=== PATIENT | female | born 1950 | race Caucasian/White ===

== ENCOUNTER 2018-01-04 16:19 | Outpatient (REF) | payer MEDICARE, BC, SELFPAY | END 2018-01-04 16:39 | LOC: LBN 16:19 | PROVIDERS: PCP Internal Medicine; Visit Provider Nurse Practitioner Family | DX: N39.0 Urinary tract infection, site not specified (principal) | CPT/HCPCS: 87077; 87086; 87186 ==

== ENCOUNTER 2018-01-29 15:56 | Outpatient (REF) | payer MEDICARE, BC, SELFPAY | END 2018-01-29 16:16 | LOC: NCHCN 15:56 | PROVIDERS: PCP Internal Medicine; Visit Provider Internal Medicine | DX: R82.90 Unspecified abnormal findings in urine (principal); N39.0 Urinary tract infection, site not specified | CPT/HCPCS: 87077; 87086 ==

== ENCOUNTER 2018-02-08 11:18 | Outpatient (REF) | payer MEDICARE, BC, SELFPAY ==
[2018-02-08 22:43] LABS: Bilirubin Negative (Negative); Blood Negative (Negative); Clarity Clear; Glucose Negative (Negative); Ketones Negative (Negative); Leukocyte Esterase Small (Negative); Nitrite Negative (Negative); Specific Gravity 1.015 (1.005-1.025); Urobilinogen 0.2 EU/dL (Up TO 0.2)
[2018-02-08 22:55] LABS: Bacteria Rare HPF (Negative); Crystals Negative HPF (Negative); Epithelial Cells Rare HPF (Negative); Mucus Negative (Negative); RBC Negative (0-2); WBC 20-50 HPF (0-5)
[2018-02-08 22:56] LABS: C & S Indicated? C&S Done As Ordered; Casts Negative LPF (Negative)
== END 2018-02-08 11:38 ==
LOC: NCHCN 11:18
PROVIDERS: PCP Internal Medicine; Visit Provider Internal Medicine
DX: R30.0 Dysuria (principal)
CPT/HCPCS: 87077; 81003; 81015; 87086; 87186

== ENCOUNTER 2018-03-08 20:29 | Outpatient (REF) | payer MEDICARE, BC, SELFPAY ==
[2018-03-08 20:47] LABS: Bilirubin Negative (Negative); Blood Negative (Negative); Clarity Clear; Glucose Negative (Negative); Ketones Negative (Negative); Leukocyte Esterase Small (Negative); Nitrite Negative (Negative); Urobilinogen 0.2 EU/dL (Up TO 0.2); pH 6.5 (5-8)
[2018-03-08 22:04] LABS: Epithelial Cells Few HPF (Negative); RBC Negative (0-2)
[2018-03-08 22:05] LABS: Bacteria Few HPF (Negative); C & S Indicated? Yes; Casts Negative LPF (Negative); Crystals Negative HPF (Negative); Mucus Negative (Negative); Other Cells Rare Renal (Negative)
== END 2018-03-08 20:49 ==
LOC: NCHCN 20:29
PROVIDERS: PCP Internal Medicine; Visit Provider Internal Medicine
DX: N30.90 Cystitis, unspecified without hematuria (principal)
CPT/HCPCS: 87077; 81003; 81015; 87086; 87186

== ENCOUNTER 2018-09-23 14:03 | Outpatient (REF) | payer MEDICARE, BC, SELFPAY | END 2018-09-23 14:23 | LOC: NCHCN 14:03 | PROVIDERS: PCP Internal Medicine; Visit Provider Internal Medicine | DX: N30.90 Cystitis, unspecified without hematuria (principal) | CPT/HCPCS: 87077; 87086; 87186 ==

== ENCOUNTER 2018-10-11 16:17 | Outpatient (REF) | payer MEDICARE, BC, SELFPAY | END 2018-10-11 16:37 | LOC: NCHCN 16:17 | PROVIDERS: PCP Internal Medicine; Visit Provider Family Medicine | DX: N30.90 Cystitis, unspecified without hematuria (principal) | CPT/HCPCS: 87086 ==

== ENCOUNTER 2018-12-11 10:53 | Outpatient (REF) | payer MEDICARE, BC, SELFPAY | END 2018-12-11 11:13 | LOC: NCHCO 10:53 | PROVIDERS: PCP Internal Medicine; Visit Provider Internal Medicine | DX: R35.0 Frequency of micturition (principal) | CPT/HCPCS: 87077; 87086; 87186 ==

== ENCOUNTER 2019-07-18 13:30 | Outpatient (REF) | payer MEDICARE, BC, SELFPAY ==
[2019-07-18 21:19] LABS: Anion Gap 7.3 mmol/L (3-11); BUN 22 mg/dL (7-18); CO2 31.7 mmol/L (21.0-32.0); CREATININE 1.25 mg/dL (0.55-1.02); Calcium 9.6 mg/dL (8.5-10.1); Chloride 100 mmol/L (98-107); Estimated GFR 42.49 (mL/min/1.73m2); Glucose 86 mg/dL (74-106); Potassium 4.3 mmol/L (3.5-5.1); Sodium 139 mmol/L (136-145); TSH 1.57 uIU/mL (0.36-3.74)
[2019-07-18 21:45] LABS: T4 9.5 ug/mL (4.7-13.3)
[2019-07-20 17:14] LABS: T3, Total 122 ng/dL (97-169)
== END 2019-07-18 13:50 ==
LOC: NCHCN 13:30
PROVIDERS: PCP Internal Medicine; Visit Provider Internal Medicine
DX: R73.03 Prediabetes (principal); I10 Essential (primary) hypertension; E03.9 Hypothyroidism, unspecified
CPT/HCPCS: 80048; 83036; 84436; 84443; 84480

== ENCOUNTER 2019-07-28 08:11 | Outpatient (REF) | payer MEDICARE, BC, SELFPAY ==
[2019-07-28 21:22] LABS: BUN 22 mg/dL (7-18); CREATININE 1.39 mg/dL (0.55-1.02); Calcium 9.3 mg/dL (8.5-10.1); Calculated LDL 132 mg/dL (<100); Chloride 105 mmol/L (98-107); Cholesterol 217 mg/dL (<200); Estimated GFR 37.59 (mL/min/1.73m2); Glucose 114 mg/dL (74-106); HDL Cholesterol 53 mg/dL (40-60); Potassium 4.9 mmol/L (3.5-5.1); Sodium 145 mmol/L (136-145); Triglyceride 163 mg/dL (<150)
== END 2019-07-28 08:31 ==
LOC: NCHCN 08:11
PROVIDERS: PCP Internal Medicine; Visit Provider Internal Medicine
DX: I10 Essential (primary) hypertension (principal); F01.50 Vascular dementia, unspecified severity, without behavioral disturbance, psychotic disturbance, mood disturbance, and anxiety
CPT/HCPCS: 80048; 80061

== ENCOUNTER 2019-10-07 08:57 | Outpatient (REF) | payer MEDICARE, BC, SELFPAY ==
[2019-10-07 21:25] LABS: Abs Immature Grans 0.01 10^3/uL (0.0-0.06); Absolute Basophil Count 0.05 10^3/uL (0.0-0.2); Absolute Eosinophil Count 0.14 10^3/uL (0.0-0.7); Absolute Lymphocyte Count 1.31 10^3/uL (1.2-3.4); Absolute Monocyte Count 0.58 10^3/uL (0.1-0.8); Basophils % 1.1; Eosinophils % 3.1; HCT 39.9 % (36.0-46.0); HGB 13.6 g/dL (11.2-15.7); Immature Grans % 0.2; Lymphocytes % 29.2; MCH 32.5 pg (27.0-33.0); MCHC 34.1 % (32.0-36.0); MCV 95.5 fL (80-95); MPV 10.6 fL (8.0-11.0); Monocytes % 12.9; Neutrophils % 53.5; Platelet Count 240 10^3/uL (130-400); RBC 4.18 10^6/uL (3.93-5.22); RDW 12.6 % (11.7-14.6); RDW-SD 43.8 fL; WBC 4.49 10^3/uL (4.4-10.8)
[2019-10-07 22:03] LABS: Ferritin 71 ng/mL (8-252); Vitamin B12 683 pg/mL (193-986)
[2019-10-07 22:24] LABS: Iron 69 ug/dL (50-170); Total Iron Binding Capacity 300 ug/dL (250-450); Transferrin Sat 23 % (15-50)
[2019-10-07 22:52] LABS: Folate > 20.0 ng/mL (8.6-20.0)
[2019-10-08 16:53] LABS: Thyroperoxidase Antibody <28 U/mL (<=60)
[2019-10-09 04:55] LABS: Vitamin D 25 Total 68.3 ng/ml (30-100)
[2019-10-09 10:02] LABS: Insulin 17.6 uIU/mL (<29.0)
[2019-10-10 09:37] LABS: Lipoprotein (a) 9 mg/dL (<=30)
== END 2019-10-07 09:17 ==
LOC: LBN 08:57
PROVIDERS: PCP Internal Medicine; Visit Provider Naturopath
DX: R73.03 Prediabetes (principal); R53.83 Other fatigue; E55.9 Vitamin D deficiency, unspecified; E78.5 Hyperlipidemia, unspecified
CPT/HCPCS: 82306; 83695; 82607; 82728; 82746; 83036; 83525; 83540; 83550; 85025; 86376

== ENCOUNTER 2019-11-14 17:19 | Outpatient (REF) | payer MEDICARE, BC, SELFPAY | END 2019-11-14 17:39 | LOC: NCHCN 17:19 | PROVIDERS: PCP Internal Medicine; Visit Provider Family Medicine | DX: R32 Unspecified urinary incontinence (principal) | CPT/HCPCS: 87077; 87086; 87186 ==

== ENCOUNTER 2019-11-20 17:46 | Outpatient (REF) | payer MEDICARE, BC, SELFPAY ==
[2019-11-24 03:58] LABS: Patient Race White; SARS-CoV-2 RNA Undetected (Undetected); SARS-CoV-2 Specimen Source Nasopharynx
== END 2019-11-20 18:06 ==
LOC: NCHCN 17:46
PROVIDERS: PCP Internal Medicine; Visit Provider Nurse Practitioner Family
DX: Z11.59 Encounter for screening for other viral diseases (principal)
CPT/HCPCS: U0003

== ENCOUNTER 2020-01-06 19:31 | Outpatient (REF) | payer MEDICARE, BC, SELFPAY ==
[2020-01-06 21:11] LABS: Hemoglobin A1C 5.6 % (<5.7)
[2020-01-06 21:27] LABS: Anion Gap 7.7 mmol/L (3-11); BUN 25 mg/dL (7-18); CO2 29.3 mmol/L (21.0-32.0); CREATININE 1.06 mg/dL (0.55-1.02); Calcium 9.2 mg/dL (8.5-10.1); Calculated LDL 41 mg/dL (<100); Chloride 103 mmol/L (98-107); Cholesterol 118 mg/dL (<200); Estimated GFR 51.25 (mL/min/1.73m2); Glucose 102 mg/dL (74-106); HDL Cholesterol 47 mg/dL (40-60); Potassium 4.9 mmol/L (3.5-5.1); Sodium 140 mmol/L (136-145); Triglyceride 154 mg/dL (<150)
== END 2020-01-06 19:51 ==
LOC: NCHCN 19:31
PROVIDERS: PCP Internal Medicine; Visit Provider Internal Medicine
DX: E78.5 Hyperlipidemia, unspecified (principal); N18.9 Chronic kidney disease, unspecified; R73.03 Prediabetes
CPT/HCPCS: 80048; 80061; 83036

== ENCOUNTER 2020-07-27 15:00 | Outpatient (REF) | payer MEDICARE, BC, SELFPAY ==
[2020-07-29 15:57] LABS: COVID-19 RT-PCR UVMMC Result Negative (Negative)
== END 2020-07-27 15:01 | disposition home or self-care (01) ==
LOC: NCHCN 15:00
PROVIDERS: PCP Nurse Practitioner Family; Visit Provider Nurse Practitioner Family
DX: Z20.822 Contact with and (suspected) exposure to COVID-19 (principal); R19.7 Diarrhea, unspecified
CPT/HCPCS: U0003

== ENCOUNTER 2020-07-28 15:15 | Outpatient (REF) | payer MEDICARE, BC, SELFPAY ==
[2020-07-29 21:45] LABS: Campylobacter PCR Negative (Negative); Salmonella PCR Negative (Negative); Shiga Toxin PCR Negative (Negative); Shigella/Enteroinvasive Ecoli Negative (Negative)
[2020-08-03 14:56] LABS: Helicobacter pylori Ag, Feces Negative (Negative)
== END 2020-07-28 15:16 | disposition home or self-care (01) ==
LOC: NCHCN 15:15
PROVIDERS: PCP Nurse Practitioner Family; Visit Provider Nurse Practitioner Family
DX: R19.7 Diarrhea, unspecified (principal)
CPT/HCPCS: 87329; 87338; 87493; 87505; 83630; 87177

== ENCOUNTER 2020-09-19 15:28 | Emergency (ER) | payer MEDICARE, BC, SELFPAY ==
[2020-09-19 15:35] VITALS: BP 158/71; PULSE 70; RESP 16; TEMP 36.6; O2SAT 95
--- NOTE | 2020-09-19 16:24 | ED.GENADUL_ITS ---
Discharge Plan Disposition Patient Disposition: HOME Condition: Stable Discharge Details Clinical Impression: Elbow fracture, left Primary Care Provider: Zahra Raman ED Provider: Elaine Vilchis Home Meds and New Rx's Prescriptions: New oxycodone 5 mg tablet 5 mg PO Q6H PRNQty: 6 RF: 0 No Action levothyroxine [Synthroid] 25 mcg Tablet 100 mcg PO DAILY RF: 0 hydromorphone [Dilaudid] 2 mg Tablet 2 mg PO .[id number] PRNRF: 0 lisinopril 10 mg Tablet 20 mg PO DAILY RF: 0 bupropion HCl [Wellbutrin XL] 300 mg Tablet Extended Release 24 Hr 150 mg PO DAILY RF: 0 Xarelto 2.5 mg Tablet 10 mg PO .QHS RF: 0 multivitamin Tablet 1 tab PO DAILY RF: 0 atorvastatin 20 mg Tablet 20 mg PO .QHS RF: 0 omeprazole 20 mg Tablet,Delayed Release (Dr/Ec) 20 mg PO DAILY RF: 0 Discharge Instructions Additional Instructions: keep dry ice, use sling during day tylenol 650 mg every 4 hours oxycodone 1-2 every 4-6 hours return with fever, worsening pain, numbness/tingling, or with any new or worsening symptoms Discharge Data Discharge Date/Time-TO BE ENTERED AT DEPARTURE: 09/19/20 16:57 Medical Decision Making After the dorsal portion of the splint was removed, patient states that her pain is resolved and she is feeling significant improvement I did reapply her splint and she is feeling marked improvement I gave her several additional doses of oxycodone, risk discussed She has follow-up at [facility] for surgery in 2 days reportedly She is still taking her Dilaudid which she was prescribed but almost has completed this prescription I discussed risk of addiction No clinical evidence of DVT Has sling at home Return precautions discussed patient expressed understanding There is no evidence of compartment syndrome clinically I think at this time as patient is symptomatically improved, she has a nonfocal exam for compartment syndrome, and she has appropriate analgesia, she will only take this medication if she is pain uncontrolled with Tylenol we can . Medical Records Medical records reviewed: Yes I reviewed the patient's medical records. HPI General Mode of arrival: ambulatory . Date/Time Provider Initiated Documentation: 09/19/20 16:23 . Limitations to Documentation: no limitations . Information obtained by: patient . HPI Narrative: This 70-year-old female with past medical history of DVT, diabetes, hyperlipidemia presents with reports of left elbow pain and arm pain. Patient is status post fracture of her elbow which was open on September 08. She has had a splint placed at [facility] a week ago and she states that it feels too tight. She states she presents here secondary to discomfort related to her splint. She is taking her pain medication as prescribed. She denies any sensation change to the affected area. She denies fever or chills. Antibiotic as prescribed reportedly. She is scheduled for surgery in 2 days reportedly. She denies any chest pain or shortness of breath. She denies any additional complaints at this time. Related Data Home Medications Medication Instructions Recorded Confirmed atorvastatin 20 mg PO .QHS 09/19/20 09/19/20 bupropion HCl [Wellbutrin XL] 150 mg PO DAILY 09/19/20 09/19/20 hydromorphone [Dilaudid] 2 mg PO .[id number] PRN 09/19/20 09/19/20 levothyroxine [Synthroid] 100 mcg PO DAILY 09/19/20 09/19/20 lisinopril 20 mg PO DAILY 09/19/20 09/19/20 multivitamin 1 tab PO DAILY 09/19/20 09/19/20 omeprazole 20 mg PO DAILY 09/19/20 09/19/20 oxycodone 5 mg PO Q6H PRN #6 tab 09/19/20 rivaroxaban [Xarelto] 10 mg PO .QHS 09/19/20 09/19/20 Previous Rx's Medication Instructions Recorded oxycodone 5 mg PO Q6H PRN #6 tab 09/19/20 Allergies Allergy/AdvReac Type Severity Reaction Status Date / Time Penicillins Allergy Unverified 09/19/20 15:40 Sulfa (Sulfonamide Allergy Unverified 09/19/20 15:41 Antibiotics) General Stated Complaint: Orthopedic VALDEMAR: 4 Review of Systems All systems reviewed & are unremarkable except as noted in HPI and below PFSH Social History Smoking/Tobacco Use Status: Never Smoking risk assessment performed?: Yes Alcohol Intake: never Substance use type: does not use Exam Const General: cooperative and no acute distress Chest Chest: normal inspection of the chest Resp Effort & Inspection: normal respiratory effort Cardio Rate: regular rate Other: Distal pulses intact to bilateral upper extremities Neuro General: patient alert and patient oriented x3 Other: Sensation intact distally to the left upper extremity Extrem Other: Left arm visualized, no evidence of cellulitis, wound site appears well , No crepitus, neurovascularly intact, no significant swelling Course Vital Signs Vital signs: Vital Signs Temperature 36.6 C 09/19/20 15:35 Pulse 70 09/19/20 15:35 Respiratory Rate 16 09/19/20 15:35 Blood Pressure 158/71 H 09/19/20 15:35 Pulse Oximetry 95 09/19/20 15:35 Temperature 36.6 C 09/19/20 15:35 Temperature Source Skin 09/19/20 15:35 Pulse 70 09/19/20 15:35 Respiratory Rate 16 09/19/20 15:35 Respiratory Effort 09/19/20 15:35 Blood Pressure 158/71 H 09/19/20 15:35 Blood Pressure Position Sitting 09/19/20 15:35 Pulse Oximetry 95 09/19/20 15:35 Oxygen Delivery Method Room Air 09/19/20 15:35 Oxygen Flow Rate 0 09/19/20 15:35 Pain Level 8 09/19/20 15:52
== END 2020-09-19 16:57 | disposition home or self-care (01) ==
PROVIDERS: Emergency Provider Physician Assistant; PCP Nurse Practitioner Family
DX: M25.522 Pain in left elbow (principal); Y84.8 Other medical procedures as the cause of abnormal reaction of the patient, or of later complication, without mention of misadventure at the time of the procedure; S42.402A Unspecified fracture of lower end of left humerus, initial encounter for closed fracture; W19.XXXA Unspecified fall, initial encounter
CPT/HCPCS: 29105; 99283

== ENCOUNTER 2021-01-14 10:44 | Outpatient (REF) | payer MEDICARE, BC, SELFPAY ==
[2021-01-14 16:41] LABS: ALT 23 U/L (14-59); AST 19 U/L (15-37); Albumin 4.3 g/dL (3.4-5.0); Alkaline Phosphatase 133 U/L (46-116); BUN 22 mg/dL (7-18); Bilirubin, Total 0.5 mg/dL (0.2-1.0); CREATININE 1.2 mg/dL (0.55-1.02); Calcium 9.5 mg/dL (8.5-10.1); Calculated LDL 61 mg/dL (<100); Chloride 103 mmol/L (98-107); Cholesterol 147 mg/dL (<200); Estimated GFR 44.29 (mL/min/1.73m2); Glucose 97 mg/dL (74-106); HDL Cholesterol 55 mg/dL (40-60); Potassium 4.7 mmol/L (3.5-5.1); Sodium 142 mmol/L (136-145); Triglyceride 155 mg/dL (<150)
[2021-01-14 16:49] LABS: Hemoglobin A1C 5.9 % (<5.7)
== END 2021-01-14 10:45 | disposition home or self-care (01) ==
LOC: NCHCN 10:44
PROVIDERS: PCP Nurse Practitioner Family; Visit Provider Internal Medicine
DX: E78.5 Hyperlipidemia, unspecified (principal); R73.03 Prediabetes; E66.9 Obesity, unspecified
CPT/HCPCS: 80053; 80061; 83036

== ENCOUNTER 2021-01-28 21:04 | Outpatient (REF) | payer MEDICARE, BC, SELFPAY ==
[2021-01-28 21:27] LABS: TSH 2.29 uIU/mL (0.36-3.74)
== END 2021-01-28 21:05 | disposition home or self-care (01) ==
LOC: LBN 21:04
PROVIDERS: Visit Provider Internal Medicine
DX: E03.9 Hypothyroidism, unspecified (principal)
CPT/HCPCS: 84443

== ENCOUNTER 2021-08-25 18:00 | Outpatient (REF) | payer MEDICARE, BC, SELFPAY ==
[2021-08-26 11:08] LABS: Lyme Ab w Rflx to Lyme Confirm Negative (Negative)
[2021-08-28 09:35] LABS: Anaplasma phagocytophilum Negative (Negative); B. miyamotoi PCR Negative (Negative); Babesia divergens/MO-1 Negative (Negative); Babesia duncani Negative (Negative); Babesia microti Negative (Negative); Ehrlichia chaffeensis Negative (Negative); Ehrlichia ewingii/canis Negative (Negative); Ehrlichia muris eauclairensis Negative (Negative)
== END 2021-08-25 18:01 | disposition home or self-care (01) ==
LOC: NCHCN 18:00
PROVIDERS: Visit Provider Registered Nurse
DX: M79.18 Myalgia, other site (principal)
CPT/HCPCS: 87798; 86618

== ENCOUNTER 2021-10-13 15:43 | Outpatient (REF) | payer MEDICARE, BC, SELFPAY ==
--- OUTSIDE RECORDS SUMMARY | 2021-10-13 15:49 | XMS_ITS | Encounter Summary ---
:1950 Author Organization [place] [address] Care Team Providers Name Role Phone Ekaterina Omer MD Primary Care Provider Encounter Details Date Type Department Care Team Description 05/27/2021 Telephone Pulmonology at [facility] [place] [address] Social History Tobacco Use Types Packs/Day Years Used Date Former Smoker Cigarettes 1 10 Quit: 05/10/18 73 Smokeless Tobacco: Never Used Alcohol Use Standard Drinks/Week Comments No 0 (1 standard drink = 0.6 oz pure alcoho l) Sex Assigned at Date Recorded Female 01/18/2021 7:28 AM EST documented as of this encounter Plan of Treatment Upcoming Encounters Date Type Specialty Care Team Description 11/24/2021 Office Visit Neurology Gregg Lacy MD [place], [place] [address] (Wo rk) 04/06/2022 Appointment Radiology 04/06/2022 Office Visit Orthopaedics Wally Rouse MD [facility] ORTHOPAEDIC SURG [place], [place] [address] (Wo rk) documented as of this encounter Visit Diagnoses Not on filedocumented in this encounter Care Teams Mechanical Test Engineer Relationship Specialty Start Date End Date Ekaterina Omer MD PCP - General General Internal Medicine 08/23/18 [address] [place] [address] documented as of this encounter
--- OUTSIDE RECORDS SUMMARY | 2021-10-13 15:49 | XMS_ITS | Encounter Summary ---
:1950 Author Organization [facility] [place] [address] Care Team Providers Name Role Phone Ekaterina Omer MD Primary Care Provider Encounter Details Date Type Department Care Team Description 08/11/2021 Telephone Thoracic Surgery at [facility] [place] [address] Social History Tobacco Use Types Packs/Day Years Used Date Former Smoker Cigarettes 1 10 Quit: 05/10/18 73 Smokeless Tobacco: Never Used Alcohol Use Standard Drinks/Week Comments No 0 (1 standard drink = 0.6 oz pure alcoho l) Sex Assigned at Date Recorded Female 01/18/2021 7:28 AM EST documented as of this encounter Miscellaneous Notes Telephone Encounter - Marin Glover - 08/11/2021 2:17 PM EDT Message left requesting return call. Please schedule CT & follow up in Pulmonary Nodule clinic with Ryan. documented in this encounter Plan of Treatment Upcoming Encounters Date Type Specialty Care Team Description 11/24/2021 Office Visit Neurology Gregg Lacy MD [place], [place] [address] (Wo rk) 04/06/2022 Appointment Radiology 04/06/2022 Office Visit Orthopaedics Wally Rouse MD [facility] ORTHOPAEDIC SURG [place], [place] [address] (Wo rk) documented as of this encounter Visit Diagnoses Not on filedocumented in this encounter Care Teams Forestry Fire Aide Relationship Specialty Start Date End Date Ekaterina Omer MD PCP - General General Internal Medicine 08/23/18 [address] [place] [address] documented as of this encounter
--- OUTSIDE RECORDS SUMMARY | 2021-10-13 15:49 | XMS_ITS | Encounter Summary ---
:1950 Author Organization [facility] [place] [address] Care Team Providers Name Role Phone Ekaterina Omer MD Primary Care Provider Encounter Details Date Type Department Care Team Description 09/13/2021 Orders Only [place] [facility] [place] Branham MD [facility] [place] [phone] Pulmonary Medicine [phone] [place], [place] [address] (Wo rk) Social History Tobacco Use Types Packs/Day Years [...] 11/24/2021 Office Visit Neurology Gregg Lacy MD [place], [place] [address] (Wo rk) 04/06/2022 Appointment Radiology 04/06/2022 Office Visit Orthopaedics Wally Rouse MD [facility] ORTHOPAEDIC SUR[place], [place] [address] (Wo rk) documented as of this encounter Visit Diagnoses Not on filedocumented in this encounter Care Teams Cloth Spreader Screen Printing Relationship Specialty Start Date End Date Ekaterina Omer MD PCP - General General Internal Medicine 08/23/18 [address] [place] [address] documented as of this encounter
--- OUTSIDE RECORDS SUMMARY | 2021-10-13 15:49 | XMS_ITS | Encounter Summary ---
:1950 Author Organization [facility] [place] [address] Care Team Providers Name Role Phone Ekaterina Omer MD Primary Care Provider Reason for Referral Consultation (Routine) - Closed Specialty Diagnoses / Procedures Referred By Contact Refer red To Contact Pulmonology Diagnoses SOB (shortness of breath) Chronic cough [facility], [facility] [address] [place] [address] [place] [address] Referral ID Status Reason Start Date Expiration Date Visits V isits Requested Authorized [id number] Closed Consult, 06/24/2021 06/24/2022 1 1 Test & Treat Diagnostic Test (Routine) - Closed Specialty Diagnoses / Procedures Referred By Contact Refer red To Contact Radiology Diagnoses Multiple lung nodules Nieves Hamilton APRN [facility] Rad [facility] Scan Procedures CT Chest wo Contrast (Generic) [place] [address] [place] [address] Referral ID Status Reason Start Date Expiration Date Visits V isits Requested Authorized [id number] Closed Specialty 06/24/2021 12/24/2022 1 1 Service Requested Reason for Visit Reason Comments Advice Only Consultation (Routine) - Authorized Specialty Diagnoses / Procedures Referred By Contact Refer red To Contact Thoracic Surgery Diagnoses Multiple pulmonary nodules Cough Multiple pulm nodules Zahra Raman, MATHS TUTORRosa Maria Wing, [address] [place] [address] Pulmonary Medi [place], [place] [address] Phone: Fax: Referral ID Status Reason Start Date Expiration Visits Visits Date Requested Authorized [id number] Authorized Consult, 05/27/2021 05/27/2022 6 6 Test & Treat Encounter Details Date Type Department Care Team Description 06/24/2021 Office Visit Thoracic Surgery at [facility] Mul tiple lung nodules; [facility]os SOB (shortness of breath); [facility]ly [facility] [address], [place] [phone] Social History Tobacco Use Types Packs/Day Years Used Date Former Smoker Cigarettes 1 10 Quit: 05/10/18 73 Smokeless Tobacco: Never Used Alcohol Use Standard Drinks/Week Comments No 0 (1 standard drink = 0.6 oz pure alcoho l) Sex Assigned at Date Recorded Female 01/18/2021 7:28 AM EST documented as of this encounter Last Filed Vital Signs Vital Sign Reading Time Taken Comments Blood Pressure 123/68 06/24/2021 12:53 PM EDT Pulse 77 06/24/2021 12:53 PM EDT Temperature 36.3 ??C (97.3 ??F) 06/24/2021 12:53 PM EDT Respiratory Rate 20 06/24/2021 12:53 PM EDT Oxygen Saturation 98% 06/24/2021 12:53 PM EDT Inhaled Oxygen Concentration - - Weight 109.4 kg (241 lb 3.2 oz) 06/24/2021 12:53 PM EDT Height 160 cm (5' 2.99) 06/24/2021 12:53 PM EDT Body Mass Index 42.74 06/24/2021 12:53 PM EDT documented in this encounter H&P Notes Nieves Hamilton APRN - 06/24/2021 1:00 PM EDT Pulmonary Nodule Clinic Outpatient Consultation Note Nieves Hamilton APRN [place] [address] FAX: Date of Consultation: 06/24/2021 This consultation has been requested by PCP: Ekaterina Omer MD Referring Physician: Zahra Raman APRN Purpose for Consultation: Multiple lung nodules HPI: Kiya Cummings is a 71 y.o. 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 and depression. She presents today with a CTA Chest obtained in February 2021 which noted multiple stable pulmonary nodules and reticular markings. Her last CT Chest was in 2018 which also demonstrated multiple lung nodules thought to represent intrapulmonary lymph nodes. She presents today to discuss further assessment regarding her multiples lung nodules. Today she reports a chronic dry cough which is occasionally productive in the morning, progressive shortness of breath over the last 6 months, and fatigue. Before breaking her elbow last summer she waswalking daily with her but is now more sedentary. She notes her shortness of breath is most noticeable with activity. She also has a daily dry cough which is exacerbated by activity and deep breathing. She was started on albuterol inhaler by her PCP which she feels does help. She denies hemoptysis, wheeze, chest pain, fever, chills, nausea, vomiting, dysphagia, weight loss. She is a former smoker with a 10 pack year history, quit in 1972. She denies drug and alcohol use. Past Medical History: Patient Active Problem List Diagnosis Date Noted ??? S/p L total elbow 02/09/21 (Dr. Rouse) 02/09/2021 ??? Closed fracture of left distal humerus s/p ORIF Gitajn 09/21/20 09/21/2020 ??? Phlebitis after infusion 09/15/2020 ??? Mild cognitive impairment 08/26/2018 ??? Morbid obesity with BMI of 40.0-44.9, adult 08/13/2017 ??? Hypothyroidism 06/18/2017 ??? Gastroesophageal reflux 06/18/2017 ??? Pulmonary embolism 06/18/2017 ??? Depression 06/18/2017 ??? LEONARD treated with BiPAP 06/18/2017 ??? OA (osteoarthritis) 06/18/2017 ??? Diverticulosis of large intestine without perforation or abscess without bleeding 06/18/2017 ??? Irritable bowel syndrome with both constipation and diarrhea 06/18/2017 ??? Disorder of muscle, ligament, and fascia 08/27/2015 ??? Urinary and fecal incontinence 08/12/2015 ??? S/P panniculectomy 06/25/2014 ??? Rectus diastasis 10/01/2013 Past Medical History: Diagnosis Date ??? Allergy 1979 sulfur and 2013 sipro ??? Asthma 1978 Mild intermittant ??? Cataract ??? Diverticulitis 2005 ??? ENT disease 2010 tinnitus ??? GERD (gastroesophageal reflux disease) ??? Hypothyroid ??? Mental or behavioral problem 2000 depression ??? Morbid obesity ??? Musculoskeletal disease 2000 arthritis in hands and toes ??? Pulmonary embolism 2011 ??? Pulmonary nodules Imaging consistent with interpulmonary lymph nodes no further follow-up required 2017 ??? Urinary disorder 1985 bladder infections ??? Varicose veins of left lower extremities Past Surgical History: Past Surgical History: Procedure Laterality Date ??? CYSTOCELE REPAIR 1994 with rectocele repair ??? HYSTERECTOMY 1981 supracervical ??? PRG FLUOROSCOPY EXAM UP TO 1 HR [facility] OR [facility] PROV N/A 11/24/2020 FLUOROSCOPY (WRVU 0.17) performed by William Jones MD at [facility] MAIN OR ??? PRO ARTHROPLASTY, ELBOW, TOTAL PROSTH REPL Left 02/09/2021 TOTAL ELBOW REPLACEMENT (WRVU 22) performed by Wally Rouse MD at [facility] MAIN OR ??? PRO COLONOSCOPY, DIAGNOSTIC N/A 12/24/2017 COLONOSCOPY, DIAGNOSTIC performed by Caleb Tineo MD at [facility] ENDOSCOPY ??? PRO ELECT ANALYSIS IMPL NEUROSTIM GEN, COMPLEX SPINAL, PERIPHERAL STIMU W/SC N/A 11/24/2020 ELEC ANALYSIS IMPL NEUROSTIM\PULSE GEN SYS-COMPLEX (WRVU 0.8) performed by William Jones MD at [facility] MA[facility] OR ??? PRO ELECT ANALYSIS IMPL NEUROSTIM GEN, COMPLEX SPINAL, PERIPHERAL STIMU W/SC N/A 12/01/2020 ELEC ANALYSIS IMPL NEUROSTIM\PULSE GEN SYS-COMPLEX (WRVU 0.8) performed by William Jones MD at [facility] MA[facility] OR ??? PRO EXCISE EXCESS SKIN TISSUE, ABDOMEN N/A 03/06/2014 ABDOMINOPLASTY performed by Marcos Vance MD at [facility] OR ??? PRO IMPLANT GASTRIC NEUROSTIM/ORTHOPEDICALLY IMPAIRED TEACHER N/A 12/01/2020 INSERT OR REPLACE PERIPHERAL OR GASTRIC NEUROSTIMULATOR (WRVU 2.45) performed by William Jones MD at [facility] ??? PRO OPEN IMPLANTATION LONNY SACRAL NERVE N/A 11/24/2020 INCISION & IMPLANT SACRAL NEUROSTIMULATOR ELECTRODE (WRVU 12.2) performed by William Jones MD at [facility] OR ??? PRO OPEN TX HUMERAL SUPRACONDYLAR FRACTURE W/O XTN Left 09/21/2020 OPEN TREATMENT OF HUMERAL SUPRACONDYLAR OR TRANSCONDYLAR FRACTURE, INCLUDES INTERNAL FIXATION WITHOUT INTERCONDYLAR EXTENSION (WRVU 13.15) performed by Nimco Ha MD at [facility] MA[facility] OR ??? PRO REELBOW LAT LIGMNT W/TISS Left 09/21/2020 LATERAL COLLATERAL LIGAMENT REPAIR, ELBOW (WRVU 9.16) performed by Nimco Ha MD at [facility] ??? PRO REMOVAL DEEP IMPLANT Left 02/09/2021 REMOVAL OF IMPLANT, DEEP, UPPER EXTREMITY (WRVU 5.96) performed by Wally Rouse MD at [facility] OR ??? PRO REMOVAL OF HEAD OF RADIUS Left 09/21/2020 RADIAL HEAD, EXCISION (WRVU 6.42) performed by Nimco Ha MD at [facility] OR ??? PRO UNLISTED PROCEDURE, MUSCULOSKELETAL SYSTEM, GENERAL both shouloders rotater cuff ??? VASCULAR SURGERY 1989 varicose veins both legs ??? XR JOINT ASPIRATION - MEDIUM JOINT LEFT Left 12/31/2020 XR Fluoro Guided Joint Aspiration Medium Left 12/31/2020 Lashonda Lewis APRN [facility] RAD XRAY Medications: Outpatient Medications Marked as Taking for the 06/24/21 encounter (Office Visit) with Nieves Hamilton APRN Medication Sig Dispense Refill ??? estradioL (ESTRACE) 0.01 % (0.1 mg/gram) Cream INSERT 1 APPLICATORFUL VAGINALLY 3 TIMES A WEEK ??? phentermine (ADIPEX-P) 37.5 mg Tablet Take 37.5 mg by mouth daily. ??? triamcinolone (Kenalog) 0.1 % Ointment APPLY SMALL AMOUNT TOPICALLY TO THE SKIN TWICE DAILY NEEDED ??? buPROPion SR (Wellbutrin SR) 150 mg tablet sustained-release 12 hr ??? acetaminophen (Tylenol) 325 mg Tablet Take 2 tablets by mouth every 4 hours as needed for Pain. 30 tablet 1 ??? lisinopriL (Zestril) 5 mg Tablet 10 mg daily. ??? escitalopram (Lexapro) 20 mg Tablet ??? zaleplon (SONATA) 10 mg Capsule TAKE 1 CAPSULE BY MOUTH EVERY NIGHT AT BEDTIME NEEDED ??? Xarelto 10 mg Tablet ??? docusate sodium (Colace) 100 mg Capsule Take 100 mg by mouth as needed. ??? atorvastatin (Lipitor) 20 mg Tablet atorvastatin 20 mg tablet ??? omeprazole (PriLOSEC) 40 mg Capsule, Delayed Release(E.C.) Take 40 mg by mouth daily. ??? buPROPion (WELLBUTRIN XL) 300 mg Tablet Extended Release 24 hr Take 1 tablet by mouth every morning. 30 tablet 3 ??? levothyroxine (SYNTHROID) 100 mcg Tablet Take 100 mcg by mouth daily. ??? multivitamin (THERAGRAN) Tablet Take 1 tablet by mouth daily. ??? magnesium 250 mg Tablet Take 500 mg by mouth daily. ??? cholecalciferol, Vitamin D3, 50 mcg (2,000 unit) Capsule Take 1 capsule by mouth daily. ??? ascorbic acid, vitamin C, (VITAMIN C) 500 mg Tablet Take 500 mg by mouth daily. Allergies: Allergies Allergen Reactions ??? Sulfa (Sulfonamide Antibiotics) Hives ??? Ciprofloxacin ??? Macrodantin [Nitrofurantoin Macrocrystal] ??? Penicillins ??? Pramipexole Family History: Family History Problem Relation Age of Onset ??? Alcohol Use Disorder Sister ??? Thrombophilia Mother ??? Coronary Artery Disease Mother ??? High Blood Pressure Mother ??? Cervical Cancer Mother ??? Parkinsonism Father ??? Stomach Cancer Brother ??? Obesity Brother ??? Diabetes Brother ??? Myocardial Infarction Brother ??? Obesity Sister ??? Gallbladder Disease Son Gallstones s/p cholecystectomy Social History: Social History Socioeconomic History ??? Marital status: Spouse name: Not on file ??? Number of children: Not on file ??? Years of education: Not on file ??? Highest education level: Not on file Occupational History ??? Not on file Tobacco Use ??? Smoking status: Former Smoker Packs/day: 1.00 Years: 10.00 Pack years: 10.00 Types: Cigarettes Quit date: 05/10/1972 Years since quittin.1 ??? Smokeless tobacco: Never Used Vaping Use ??? Vaping Use: Never used Substance and Sexual Activity ??? Alcohol use: No ??? Drug use: No ??? Sexual activity: Not on file Comment: deferred Other Topics Concern ??? Exercise: Patient reported No ??? Abuse or Threat: Physical, Sexual, Verbal No Social History Narrative Ms. Cummings lives in [place], [place] with her . 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 She has prior history of radon exposure but this is since been mitigated in her home. She has not had significant occupational exposures to dusts or fumes although there is an incidental exposures or work. She has 2 adult children. She and her frequently winter in [place]. She enjoys watching TV and biking. Social Determinants of Health Financial Resource Strain: Not on file Food Insecurity: Not on file Transportation Needs: Not on file Physical Activity: Not on file Housing Stability: Not on file REVIEW OF SYSTEMS: General: + fatigue, Denies weight loss, chills, night sweats Neuro: Denies seizure, TIA, CVA, neurologic deficits including tremor, incoordination, paresthesias,difficulties with memory or speech, sensory or motor disturbances, or muscular coordination Psychiatric: +depression Denies anxiety, thoughts of suicide in the past, PTSD, substance abuse, previous hallucinations, other psychiatric diagnoses Cardiovascular: + family history of cardiac disease, Denies arrythmias, CAD, HTN, CHF, hyperlipidemia Respiratory: +shortness of breath, cough, PND, Denies asthma, COPD, emphysema, wheezing, stridor, hemoptysis, respiratory infection, TB or exposure to TB GI: Denies ulcer disease, irritable bowel syndrome, denies past GI bleed, jaundice : Denies urgency, frequency, dysuria, nocturia, polyuria,denies oliguria, stones, UTI, nephritis Hematologic: +history of DVT/PE, denies petechiae, bleeding diathesis Endocrine: Denies diabetes mellitus, denies thyroid disease, other endocrine disorder Musculoskeletal: +chronic back pain, Denies fractures, arthritis Integument: Denies skin cancer Physical Exam: Blood Pressure 123/68 (Patient Position: Sitting) Pulse 77 Temperature 36.3 ??C (97.3 ??F) (Temporal) Respiration 20 Height 160 cm (5' 2.99) Weight 109.4 kg (241 lb 3.2 oz) Oxygen Saturation 98% Body Mass Index 42.74 kg/m?? General Appearance: Alert, cooperative, no distress, appears stated age, overweight HEENT: PERRL, MMM, non-icteric Neck: Supple, symmetrical, trachea midline, no adenopathy; thyroid: not enlarged, symmetric, no tenderness/mass/nodules Lungs: Clear to auscultation bilaterally, respirations unlabored, no wheezes, crackles or ronchi. Heart: Regular rate and rhythm, S1 and S2 normal, no murmur, rub, or gallop Abdomen: Soft, non-tender, bowel sounds normo-active in all four quadrants, no masses, no organomegaly Extremities: Extremities normal, no cyanosis, clubbing. no edema Neurologic: A+Ox3, cranial nerves II-XII grossly intact Musculoskeletal: 4/5in lower extremities, 5/5 in upper extremities, with normal gait Diagnostics: I have independently visualized all relevant imaging studies, including: CT Chest (06/18/17): Pulmonary nodules consistent with intrapulmonary lymph nodes, including the right middle lobe intrapulmonary lymph nodes that are smaller on today's study, including the previously described right middle lobe nodule. However, a 5 mm right lower lobe nodule is not previously seen on prior, due to shallower inspiration/dependent atelectasis at that time. Statistically this is also likely to be an intrapulmonary lymph node, and per 2017 updated Fleischner Society guidelines, unless the patient is in a high risk category, no further follow-up CT recommended for nodule of this size. CT Chest (02/17/21): 1. Although there are no central pulmonary emboli in the main pulmonary arteries there is insufficient contrast in the pulmonary arterial tree distal to the main pulmonary arteries and here the remained of the pulmonary arterial tree is not confidently evaluated to the sub-optimal contrast enhancement 2. Pulmonary findings as described about which can be evaluated with follow up in 6 months. No acuteconfluent infiltrates and no pleural effusions 3. No intrathoracic adenopathy 4. No aortic dissection. No pericardial effusion Assessment: Kiya Cummings is a 71 y.o. female with reticular lung markings and multiple bilateral pulmonary lung nodules, present since 2012 which appear to be consistent with intrapulmonary lymph nodes. Plan of Management: 1. Referral to Pulmonary for chronic cough and progressive shortness of breath 2. Obtain repeat CT Chest in 2 months (6 months from last scan) 3. Continue to abstain from smoking 4. Strongly encourage beginning a daily exercise routine including aerobic exercise for 30 minutes 5. RTC in [address] Chest 6. Follow up with PCP as scheduled 7. Please call with any questions or concerns [facility] APRN 06/24/2021 Thoracic Surgery [facility] documented in this encounter Plan of Treatment Upcoming Encounters Date Type Specialty Care Team Description 11/24/2021 Office Visit Neurology Gregg Lacy MD [place] [id number] (Wo rk) 04/06/2022 Appointment Radiology 04/06/2022 Office Visit Orthopaedics Wally Rouse MD [facility] ORTHOPAEDIC SURG [place] [address] (Wo rk) Scheduled Referrals Name Type Priority Associated Order Schedule Diagnoses Referral to Outpatient Referral Routine SOB (shortness of Ord ered: Pulmonology breath) 06/24/2021 Chronic cough documented as of this encounter Results CT Chest wo Contrast (Generic) (09/19/2021 10:52 AM EDT) Anatomical Region Laterality Modality Chest Computed Tomography Specimen (Source) Anatomical Collection Method Collection Time Re ceived Time Location / / Volume Laterality 09/19/2021 11:09 AM EDT Impressions 09/19/2021 1:00 PM EDT Multiple bilateral stable pulmonary nodules. Given long-term stability no further monitoring is recommended Thank you for letting us participate in the care of this patient. ??If you are a health care provider and have any questi ons regarding this report, please contact the number below. ??For patients who have questions please contact the health healthcare consultant that requested your imaging first. ? Electronically signed by: Malik Murrell, [facility] ([phone]), at 09/19/2021 1:00 PM Narrative 09/19/2021 1:00 PM EDT EXAMINATION: CT CHEST WO CONTRAST (GENERIC) CLINICAL HISTORY: Lung nodule, > 8mm multiple lung nodules, please eval for c hanges/new nodules TECHNIQUE: 3.75 mm thick axial contiguou s sections were obtained through the chest via helical acquisition without in travenous contrast administration. Thin-section reconstructions as well as coronal and sagittal reformatted images were generated. COMPARISON: 06/18/2017 FINDINGS: Pulmonary parenchyma: No significant fin dings. Airways: No significant findings. Pleura: No significant findings. Lymph nodes: No significant findings. Heart, pericardium, and great vessels: T he artery calcifications. Other mediastinal structures: Small hiat al hernia2 Lower neck: No significant findings. Upper abdomen: No significant findings. Body wall soft tissues: No significant f indings. Skeletal structures: No significant find ings. Procedure Note Michelle Hernandez MD - 09/19/2021Formattin g of this note might be different from the original. EXAMINATION: CT CHEST WO CONTRAST (GENER IC) CLINICAL HISTORY: Lung nodule, > 8mm multiple lung nodules, please eval for c hanges/new nodules TECHNIQUE: 3.75 mm thick axial contiguou s sections were obtained through the chest via helical acquisition without in travenous contrast administration. Thin-section reconstructions as well as coronal and sagittal reformatted images were generated. COMPARISON: 06/18/2017 FINDINGS: Pulmonary parenchyma: No significant fin dings. Airways: No significant findings. Pleura: No significant findings. Lymph nodes: No significant findings. Heart, pericardium, and great vessels: T he artery calcifications. Other mediastinal structures: Small hiat al hernia2 Lower neck: No significant findings. Upper abdomen: No significant findings. Body wall soft tissues: No significant f indings. Skeletal structures: No significant find ings. IMPRESSION Multiple bilateral stable pulmonary nodu les. Given long-term stability no further monitoring is recommended Thank you for letting us participate in the care of this patient. If you are a health care provider and have any questi ons regarding this report, please contact the number below. For patients w ho have questions please contact the health healthcare consultant that requested your imaging first. Electronically signed by: Malik Murrell, [facility] ([phone]), at 09/19/2021 1:00 PM Nieves Burgos APRN [facility] ORDERABLES documented in this encounter Visit Diagnoses Diagnosis Multiple lung nodules Other nonspecific abnormal finding of gilmer ng field SOB (shortness of breath) Shortness of breath Chronic cough Cough Multiple lung nodules Other nonspecific abnormal finding of gilmer ng field documented in this encounter Care Teams Guard Manager Relationship Specialty Start Date End Date Ekaterina Omer MD PCP - General General Internal Medicine 08/23/18 [address] [place] [address] documented as of this encounter
--- OUTSIDE RECORDS SUMMARY | 2021-10-13 15:49 | XMS_ITS | Encounter Summary ---
:1950 Author Organization [facility] Address [address] [place] [address] Care Team Providers Name Role Phone Ekaterina Omer MD Primary Care Provider Encounter Details Date Type Department Care Team Description 10/03/2021 Hospital Encounter XRay at [facility] NasimWally Presence of left [address] [place] [address] Denia MD artificial elbow [place], [place] [facility] [id number] [phone] [place] [address] Social History Tobacco Use Types Packs/Day Years Used Date Former Smoker Cigarettes 1 10 Quit: 05/10/18 73 Smokeless Tobacco: Never Used Alcohol Use Standard Drinks/Week Comments No 0 (1 standard drink = 0.6 oz pure alcoho l) Sex Assigned at Date Recorded Female 01/18/2021 7:28 AM EST documented as of this encounter Medications at Time of Discharge Medication Sig Dispensed Refills Start Date End Date pregabalin (Lyrica) 50 Take 50 mg by mouth 2 0 mg Capsule times daily. clotrimazole (LOTRIMIN) APPLY SMALL AMOUNT 0 05/0 11/2021 1 % Cream TOPICALLY TO THE AFFECTED AREA TWICE DAILY UNTIL RASH RESOLVES DULoxetine (Cymbalta) Take 20 mg by mouth 0 20 mg Capsule, Delayed daily. Release(E.C.) omeprazole (PriLOSEC) 20 Take 20 mg by mouth 0 mg Capsule, Delayed daily. Release(E.C.) estradioL (ESTRACE) 0.01 INSERT 1 APPLICATORFUL 0 05/24/2021 % (0.1 mg/gram) Cream VAGINALLY 3 TIMES A WEEK phentermine (ADIPEX-P) Take 37.5 mg by mouth 0 37.5 mg Tablet daily. triamcinolone (Kenalog) APPLY SMALL AMOUNT 0 05/10 0.1 % Ointment TOPICALLY TO THE SKIN TWICE DAILY NEEDED buPROPion SR (Wellbutrin 0 12/27/2020 SR) 150 mg tablet sustained-release 12 hr lisinopriL (Zestril) 5 10 mg daily. 0 11/02/2020 mg Tablet escitalopram (Lexapro) 0 11/02/2020 20 mg Tablet zaleplon (SONATA) 10 mg TAKE 1 CAPSULE BY MOUTH 0 11/02/2020 Capsule EVERY NIGHT AT BEDTIME NEEDED Xarelto 10 mg Tablet 0 11/02/2020 docusate sodium (Colace) Take 100 mg by mouth as 0 100 mg Capsule needed. atorvastatin (Lipitor) atorvastatin 20 mg 0 20 mg Tablet tablet buPROPion (WELLBUTRIN Take 1 tablet by mouth 30 tablet 3 XL) 300 mg Tablet every morning. Extended Release 24 hr levothyroxine Take 100 mcg by mouth 0 (SYNTHROID) 100 mcg daily. Tablet multivitamin (THERAGRAN) Take 1 tablet by mouth 0 Tablet daily. magnesium 250 mg Tablet Take 500 mg by mouth 0 daily. cholecalciferol, Vitamin Take 1 capsule by mouth 0 D3, 50 mcg (2,000 unit) daily. Capsule ascorbic acid, vitamin Take 500 mg by mouth 0 C, (VITAMIN C) 500 mg daily. Tablet documented as of this encounter Plan of Treatment Upcoming Encounters Date Type Specialty Care Team Description 11/24/2021 Office Visit Neurology Gregg Lacy MD [place] [id number] (Wo rk) 04/06/2022 Appointment Radiology 04/06/2022 Office Visit Orthopaedics Wally Rouse MD [address] ORTHOPAEDIC SURG [place], [place] [address] (Wo rk) documented as of this encounter Procedures Procedure Name Priority Date/Time Associated Diagnosis Comme nts XR ELBOW 3 VIEWS Routine 10/03/2021 8:01 AM Presence of left R esults for this LEFT (GENERIC) EDT artificial elbow procedure are in joint the results section. documented in this encounter Results XR Elbow 3 Views Left (GENERIC) (10/03/2021 8:01 AM EDT) Anatomical Region Laterality Modality Elbow Left Digital Radiography Specimen (Source) Anatomical Location Collection Method / Collectio n Time Received Time / Laterality Volume Impressions 10/03/2021 11:31 AM EDT Unchanged total left elbow arthroplasty without complication. I have personally reviewed the image(s) and the resident's interpretation and agree with the findings, Dorina Lindsey MD at 10/03/2021 11:31 AM Thank you for letting us participate in the care of this patient. ??If you are a health care provider and have any questi ons regarding this report, please contact the number below. ??For patients who have questions please contact the health critical care unit manager that requested your imaging first. ? Narrative 10/03/2021 11:31 AM EDT EXAMINATION: XR ELBOW 3 VIEWS LEFT (GENERIC) CLINICAL HISTORY: Total elbow arthroplas ty, interval change? (as entered by ordering provider in the order requisiti on) TECHNIQUE: 3 views LEFT elbow: AP, lateral, and obl ique. COMPARISON: Left elbow radiographs dated 04/04/2021, 02/21/2021, 02/09/2021, and 12/19/2020. FINDINGS: Redemonstration of left total elbow arth roplasty and resection of the radial head.. No change in alignment. No peripr osthetic fracture or bone resorption. No appreciable elbow joint effusion. No foc al soft tissue swelling. Punctate radiodensity in the soft tissues posteri or to the distal humerus could represent metallic debris, unchanged since March 2021. Procedure Note Dorina Lindsey MD - 10/03/2021Formattin g of this note might be different from the original. EXAMINATION: XR ELBOW 3 VIEWS LEFT (GENE VIPIN) CLINICAL HISTORY: Total elbow arthroplas ty, interval change? (as entered by ordering provider in the order requisiti on) TECHNIQUE: 3 views LEFT elbow: AP, lateral, and obl ique. COMPARISON: Left elbow radiographs dated 04/04/2021, 02/21/2021, 02/09/2021, and 12/19/2020. FINDINGS: Redemonstration of left total elbow arth roplasty and resection of the radial head.. No change in alignment. No peripr osthetic fracture or bone resorption. No appreciable elbow joint effusion. No foc al soft tissue swelling. Punctate radiodensity in the soft tissues posteri or to the distal humerus could represent metallic debris, unchanged since March 2021. IMPRESSION Unchanged total left elbow arthroplasty without complication. I have personally reviewed the image(s) and the resident's interpretation and agree with the findings, Dorina Lindsey MD at 10/03/2021 11:31 AM Thank you for letting us participate in the care of this patient. If you are a health care provider and have any questi ons regarding this report, please contact the number below. For patients w ho have questions please contact the health critical care unit manager that requested your imaging first. Wally Rouse MD IMG DX ORDERABLES documented in this encounter Visit Diagnoses Diagnosis Presence of left artificial elbow joint Elbow joint replacement by other means documented in this encounter Care Teams Liability Claims Adjuster Relationship Specialty Start Date End Date Ekaterina Omer MD PCP - General General Internal Medicine 08/23/18 [address] [place] [address] documented as of this encounter
--- OUTSIDE RECORDS SUMMARY | 2021-10-13 15:49 | XMS_ITS | Encounter Summary ---
:1950 Author Organization [facility] [place] [address] Care Team Providers Name Role Phone Ekaterina Omer MD Primary Care Provider Reason for Visit Consultation (Routine) - Closed Specialty Diagnoses / Procedures Referred By Contact Refer red To Contact Pulmonology Diagnoses SOB (shortness of breath) Chronic cough Nieves Hamilton V, [facility] [address] [employer] [place] [address] [place] [address] Referral ID Status Reason Start Date Expiration Date Visits V isits Requested Authorized [id number] Closed Consult, 06/24/2021 06/24/2022 1 1 Test & Treat Encounter Details Date Type Department Care Team Description 09/16/2021 TH Visit Pulmonology at [facility] Berry Branham, Chronic cough (Primary Dx); (TeleHealth) [facility] MD ROMO (dyspnea on exertion); [facility] CT of the chest [facility] [id number] Pulmonary [phone] Medicine [place], [place] [address] Social History Tobacco Use Types Packs/Day Years Used Date Former Smoker Cigarettes 1 10 Quit: 05/10/18 73 Smokeless Tobacco: Never Used Alcohol Use Standard Drinks/Week Comments No 0 (1 standard drink = 0.6 oz pure alcoho l) Sex Assigned at Date Recorded Female 01/18/2021 7:28 AM EST documented as of this encounter Progress Notes Berry Branham MD - 09/16/2021 9:00 AM EDT Images from the original note were not included. [facility] Section of Pulmonary and Critical Care Medicine Outpatient Consultation Date of Encounter: 09/16/2021 Referring Provider: Nieves Hamilton [place] [address] PCP: Ekaterina Omer MD Reason for Evaluation: Nieves Das referred Ms. Cummings to the [facility] for a consultation for an opinion regarding the evaluation and management of chronic cough and dyspnea. I independently interviewed and examined the patient in the office and have reviewed available r ecords. This was a telehealth virtual visit. She was last seen in the pulmonary clinic by me in September2017 for exertional dyspnea. History of Present Illness: Was able to connect with Kiya on a video call today. Her primary concern was ongoing issues with nonproductive cough and some increased shortness of breath for the last 6 months. As noted above cough has been nonproductive. There is been no hemoptysis. No symptoms of acute infection such as fever. She does not identify a clear cause of the onset of her symptoms such as an acute pulmonary illness.She reports having had increased heartburn, but was started on omeprazole about 6 months ago with improvements in the heartburn, but without changes in her cough. She does report some chronic rhinitis which precedes the cough. Cough is not associated with any wheezing. Does not have clear triggers. Has not responded to use of albuterol. Presently taking lisinopril which seems to have been started in the spring 2020. CT scan of the chest was performed on 02/18/2021 for unclear reasons. She continues to take apixaban given history of unprovoked pulmonary embolism. I reviewed medical, surgical family and social histories and updated the chart as indicated. Past Medical and Surgical History: Past Medical History: Diagnosis Date ??? Allergy 1979 sulfur and 2013 sipro ??? Asthma 1978 Mild intermittant ??? Cataract ??? Diverticulitis 2005 ??? ENT disease 2009 tinnitus ??? GERD (gastroesophageal reflux disease) ??? Hypothyroid ??? Mental or behavioral problem 1999 depression ??? Morbid obesity ??? Musculoskeletal disease 1999 arthritis in hands and toes ??? Pulmonary embolism 2011 ??? Pulmonary nodules Imaging consistent with interpulmonary lymph nodes no further follow-up required 2017 ??? Urinary disorder 1985 bladder infections ??? Varicose veins of left lower extremities Past Surgical History: Procedure Laterality Date ??? CYSTOCELE REPAIR 1994 with rectocele repair ??? HYSTERECTOMY 1980 supracervical ??? PRG FLUOROSCOPY EXAM UP TO 1 HR [facility] PROV N/A 11/24/2020 FLUOROSCOPY (WRVU 0.17) performed by William Jones MD at [facility] OR ??? PRO ARTHROPLASTY, ELBOW, TOTAL PROSTH REPL Left 02/09/2021 TOTAL ELBOW REPLACEMENT (WRVU 22) performed by Wally Rouse MD at [facility] OR ??? PRO COLONOSCOPY, DIAGNOSTIC N/A 12/24/2017 COLONOSCOPY, DIAGNOSTIC performed by Caleb Tineo MD at [facility] ENDOSCOPY ??? PRO ELECT ANALYSIS IMPL NEUROSTIM GEN, COMPLEX SPINAL, PERIPHERAL STIMU W/NJ N/A 11/24/2020 ELEC ANALYSIS IMPL NEUROSTIM\PULSE GEN SYS-COMPLEX (WRVU 0.8) performed by William Jones MD at [facility] OR ??? PRO ELECT ANALYSIS IMPL NEUROSTIM GEN, COMPLEX SPINAL, PERIPHERAL STIMU W/NJ N/A 12/01/2020 ELEC ANALYSIS IMPL NEUROSTIM\PULSE GEN SYS-COMPLEX (WRVU 0.8) performed by William Jones MD at [facility] OR ??? PRO EXCISE EXCESS SKIN TISSUE, ABDOMEN N/A 03/06/2014 ABDOMINOPLASTY performed by Marcos Vance MD at [facility] OR ??? PRO IMPLANT GASTRIC NEUROSTIM/BLACK ASH BURNER OPERATOR N/A 12/01/2020 INSERT OR REPLACE PERIPHERAL OR GASTRIC NEUROSTIMULATOR (WRVU 2.45) performed by William Jones MD at [facility] MAIN OR ??? PRO OPEN IMPLANTATION LONNY SACRAL NERVE N/A 11/24/2020 INCISION & IMPLANT SACRAL NEUROSTIMULATOR ELECTRODE (WRVU 12.2) performed by William Jones MD at [facility] MAIN OR ??? PRO OPEN TX HUMERAL SUPRACONDYLAR FRACTURE W/O XTN Left 09/21/2020 OPEN TREATMENT OF HUMERAL SUPRACONDYLAR OR TRANSCONDYLAR FRACTURE, INCLUDES INTERNAL FIXATION WITHOUT INTERCONDYLAR EXTENSION (WRVU 13.15) performed by Nimco Ha MD at [facility] MAIN OR ??? PRO REELBOW LAT LIGMNT W/TISS Left 09/21/2020 LATERAL COLLATERAL LIGAMENT REPAIR, ELBOW (WRVU 9.16) performed by Nimco Ha MD at [facility] MAIN OR ??? PRO REMOVAL DEEP IMPLANT Left 02/09/2021 REMOVAL OF IMPLANT, DEEP, UPPER EXTREMITY (WRVU 5.96) performed by Wally Rouse MD at [facility] MAIN OR ??? PRO REMOVAL OF HEAD OF RADIUS Left 09/21/2020 RADIAL HEAD, EXCISION (WRVU 6.42) performed by Nimco Ha MD at [facility] MAIN OR ??? PRO UNLISTED PROCEDURE, MUSCULOSKELETAL SYSTEM, GENERAL both shouloders rotater cuff ??? VASCULAR SURGERY 1990 varicose veins both legs ??? XR JOINT ASPIRATION - MEDIUM JOINT LEFT Left 12/31/2020 XR Fluoro Guided Joint Aspiration Medium Left 12/31/2020 Lashonda Lewis, [employer] [facility] RAD XRAY Family History: Family History Problem (# of Occurrences) Relation (Name,Age of Onset) Alcohol Use Disorder (1) Sister Cervical Cancer (1) Mother (Opal) Coronary Artery Disease (1) Mother (Opal) Diabetes (1) Brother Gallbladder Disease (1) Son: Gallstones s/p cholecystectomy High Blood Pressure (1) Mother (Opal) Myocardial Infarction (1) Brother Obesity (2) Brother, Sister Parkinsonism (1) Father Stomach Cancer (1) Brother Thrombophilia (1) Mother (Opal) Social and Occupational History: Social History Socioeconomic History ??? Marital status: Spouse name: Not on file ??? Number of children: Not on file ??? Years of education: Not on file ??? Highest education level: Not on file Occupational History ??? Not on file Tobacco Use ??? Smoking status: Former Smoker Packs/day: 1.00 Years: 10.00 Pack years: 10.00 Types: Cigarettes Quit date: 05/10/1972 Years since quittin.3 ??? Smokeless tobacco: Never Used Vaping Use ??? Vaping Use: Never used Substance and Sexual Activity ??? Alcohol use: No ??? Drug use: No ??? Sexual activity: Not on file Comment: deferred Other Topics Concern ??? Exercise: Patient reported No ??? Abuse or Threat: Physical, Sexual, Verbal No Social History Narrative Ms. Cummings lives in [place], [place] with her . 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 She has prior history of radon exposure but this is since been mitigated in her home. She has not had significant occupational exposures to dusts or fumes although there is an incidental exposures or work. She has 2 adult children. She and her frequently winter in [place]. She enjoys watching TV and biking. Social Determinants of Health Financial Resource Strain: Not on file Food Insecurity: Not on file Transportation Needs: Not on file Physical Activity: Not on file Housing Stability: Not on file Current Medications at Start of Encounter: Current Outpatient Medications Medication Instructions ??? ascorbic acid (Vitamin C) (VITAMIN C) 500 mg, Oral, DAILY ??? atorvastatin (Lipitor) 20 mg Tablet atorvastatin 20 mg tablet ??? buPROPion SR (Wellbutrin SR) 150 mg tablet sustained-release 12 hr No dose, route, or frequency recorded. ??? buPROPion XL (WELLBUTRIN XL) 300 mg, Oral, EVERY MORNING ??? cholecalciferol, Vitamin D3, 50 mcg (2,000 unit) Capsule 1 capsule, Oral, DAILY ??? docusate sodium (COLACE) 100 mg, Oral, PRN ??? escitalopram (Lexapro) 20 mg Tablet No dose, route, or frequency recorded. ??? estradioL (ESTRACE) 0.01 % (0.1 mg/gram) Cream INSERT 1 APPLICATORFUL VAGINALLY 3 TIMES A WEEK ??? levothyroxine (SYNTHROID) 100 mcg, Oral, DAILY ??? lisinopriL (ZESTRIL) 10 mg, DAILY ??? magnesium 500 mg, Oral, DAILY ??? multivitamin (THERAGRAN) Tablet 1 tablet, Oral, DAILY ??? omeprazole (PRILOSEC) 40 mg, Oral, DAILY ??? omeprazole (PRILOSEC) 20 mg, Oral, DAILY ??? phentermine (ADIPEX-P) 37.5 mg, Oral, DAILY ??? triamcinolone (Kenalog) 0.1 % Ointment APPLY SMALL AMOUNT TOPICALLY TO THE SKIN TWICE DAILY NEEDED ??? Xarelto 10 mg Tablet No dose, route, or frequency recorded. ??? zaleplon (SONATA) 10 mg Capsule TAKE 1 CAPSULE BY MOUTH EVERY NIGHT AT BEDTIME NEEDED Adverse Drug Reactions: Allergies Allergen Reactions ??? Sulfa (Sulfonamide Antibiotics) Hives ??? Ciprofloxacin ??? Macrodantin [Nitrofurantoin Macrocrystal] ??? Penicillins ??? Pramipexole Physical Examination: There were no vitals taken for this visit. No exam for this telehealth encounter Labs: I personally reviewed relevant laboratory results which were significant for: Most recent blood workfrom 02/17/2021 was reviewed. Normal white blood cell count of 6.86. Normal hemoglobin of 12.3. MCV slightly elevated at 101. Creatinine was 1.35, suggest some baseline CKD with an EGFR to 39. Total plasma CO2 is 30 which is near the upper limit of normal. Imaging: I personally reviewed imaging from 02/17/2021 as well as prior imaging from 2018. Previously described nodules appear stable. There is some increased attenuation at in the most recent scan that can simply reflect some degree of atelectasis although an acute inflammatory process is also possible. Imaging is less typical of what I would expect from interstitial disease. Pulmonary Function Tests: Date FVC FEV1 Ratio TLC RV RV/TLC ERV DLCO 6MWT 09/15/21 2.99 111% 2.38 114% 0.80 17.55 94% I personally reviewed flow-volume loops and other tests. I reviewed lung function test from 09 15. Spirometry and diffusion capacity are normal. These results are similar to obtain previously with only expected loss in function over time. Modest desaturation with exertion similar to those observed previo usly. Impression and Plan of Care: This is an older woman with known to me for prior evaluation for stable dyspnea is seen today with increased nonproductive coughing nonspecific changes on CT scan from a little more than 6 months ago. 1. Chronic cough Ms. Cummings complains of bothersome nonproductive coughing for approximately the last 6 months. Historydoes revealed potential provoking factors most notable of which is ongoing use of lisinopril. While her use of lisinopril predates onset of cough, patients can develop JOHN inhibitor-induced coughing atany point during therapy. Beyond this JOHN inhibitor's can potentiate coughing precipitated by other etiologies. Cough has persisted despite dosing with pregabalin which is effective at suppressing cough from many etiologies. Recommend PCP consider transition off JOHN inhibitor. An ARB is generally an acceptable alternative. If cough persist after 1 month after withdrawal of this therapy additional eval uation would be appropriate. Given history of heartburn and rhinitis would recommend intensificationof acid suppression therapy and treatment of rhinitis with intranasal ipratropium 0.06%. She will reach out to me with update once she has been off of lisinopril for 3 to 4 weeks. -Recommend PCP transition patient off lisinopril 2. ROMO (dyspnea on exertion) Previously seen for chronic dyspnea that has been stable over time. Possible that shortness of breath is increased somewhat, but lung function test obtained for this visit are entirely normal showing only expected age-related loss of lung function. 3. Abnormal CT of the chest Recommend follow-up CT scan of chest as previously ordered. I provided Kiya with scheduling phone number for [facility] radiology in order for her to schedule this test. I tag myself to the results are reviewed will review once it is completed. Changes seen on CT scan are nonspecific and may simply reflectsome atelectasis. Pulmonary nodules most of which appear to be intrapulmonary lymph nodes or not viewed with concern and appear to have been stable over time. No clear etiologies for cough or shortnessof breath. Visualized on the scan. Follow up as needed if symptoms worsen or fail to improve. I provided care to the patient today via video call. The total time associated with this visit was 50 minutes. Berry Branham MD, PhD N [facility] PULMONOLOGY AT [facility] [id number] Dept: [phone] Loc: [phone] documented in this encounter Plan of Treatment Upcoming Encounters Date Type Specialty Care Team Description 11/24/2021 Office Visit Neurology Gregg Lacy MD [place], [place] [address] (Wo rk) 04/06/2022 Appointment Radiology 04/06/2022 Office Visit Orthopaedics Wally Rouse MD [facility] ORTHOPAEDIC SURG [place], [place] [address] (Wo rk) documented as of this encounter Visit Diagnoses Diagnosis Chronic cough - Primary Cough ROMO (dyspnea on exertion) Other dyspnea and respiratory abnormalit y Abnormal CT of the chest Nonspecific (abnormal) findings on radio logical and other examination of other intrathoracic organs documented in this encounter Care Teams Break Up Worker Relationship Specialty Start Date End Date Ekaterina Omer MD PCP - General General Internal Medicine 08/23/18 [address] [place] [address] documented as of this encounter
--- OUTSIDE RECORDS SUMMARY | 2021-10-13 15:49 | XMS_ITS | Encounter Summary ---
:1950 Author Organization [facility] [place] [address] Care Team Providers Name Role Phone Ekaterina Omer MD Primary Care Provider Reason for Referral Diagnostic Test (Routine) - Closed Specialty Diagnoses / Procedures Referred By Contact Refer red To Contact Radiology Diagnoses Multiple lung nodules Nieves Hamilton APRN [facility] [place] Rad Ct Scan Procedures CT Chest wo Contrast (Generic) [facility] [place] [address] [place] [address] Referral ID Status Reason Start Date Expiration Date Visits V isits Requested Authorized [id number] Closed Specialty 06/24/2021 12/24/2022 1 1 Service Requested Reason for Visit Diagnostic Test (Routine) - Closed Specialty Diagnoses / Procedures Referred By Contact Refer red To Contact Radiology Diagnoses Multiple lung nodules Nieves Hamilton APRN [facility] [place] Rad Ct Scan Procedures CT Chest wo Contrast (Generic) [facility] [place] [address] [place] [address] Referral ID Status Reason Start Date Expiration Date Visits V isits Requested Authorized [id number] Closed Specialty 06/24/2021 12/24/2022 1 1 Service Requested Encounter Details Date Type Department Care Team Description 09/19/[address] [place] [facility] [place]ieves Hamilton Multiple lung [facility] V, PRODUCTION PACKAGER nodules Drive [facility] [place] [address] [place] [address] [phone] Social History Tobacco Use Types Packs/Day Years [...] daily. clotrimazole (LOTRIMIN) APPLY SMALL AMOUNT 0 11/2021 1 % Cream TOPICALLY TO THE AFFECTED AREA TWICE DAILY UNTIL RASH RESOLVES DULoxetine DR (Cymbalta) Take 20 mg by mouth 0 [...] 11/24/2021 Office Visit Neurology Gregg Lacy MD [place], [place] [address] (Wo rk) 04/06/2022 Appointment Radiology 04/06/2022 Office Visit Orthopaedics Wally Rouse MD [facility] ORTHOPAEDIC SURG [place], [place] [address] (Wo rk) documented as of this encounter Procedures Procedure Name Priority Date/Time Associated Diagnosis Comme nts CT CHEST WO Routine 09/19/2021 10:52 AM Multiple lung Results for this CONTRAST (GENERIC) EDT nodules procedure are in the results section. documented in this encounter Results CT Chest wo Contrast [...] who have questions please contact the health special needs caregiver that requested your imaging first. ? Narrative 09/19/2021 1:00 PM EDT EXAMINATION: CT [...] ho have questions please contact the health special needs caregiver that requested your imaging first. Nieves Hamilton V, LUPE IMG CT ORDERABLES documented in this encounter Visit Diagnoses Diagnosis Multiple lung nodules Other nonspecific abnormal finding of gilmer ng field documented in this encounter Care Teams Teller Manager Relationship Specialty Start Date End Date Ekaterina Omer MD PCP - General General Internal Medicine 08/23/18 [address] [place] [address] documented as of this encounter
--- OUTSIDE RECORDS SUMMARY | 2021-10-13 15:49 | XMS_ITS | Encounter Summary ---
:1950 Author Organization [facility] [place] [address] Care Team Providers Name Role Phone Ekaterina Omer MD Primary Care Provider Encounter Details Date Type Department Care Team Description 06/27/2021 Telephone [place] [facility] [address] Social History Tobacco Use Types Packs/Day [...] 11/24/2021 Office Visit Neurology Gregg Lacy MD [place], [place] [address] (Wo rk) 04/06/2022 Appointment Radiology 04/06/2022 Office Visit Orthopaedics Wally Rouse MD [facility] ORTHOPAEDIC SURG [place], [place] [address] (Wo rk) documented as of this encounter Visit Diagnoses Not on filedocumented in this encounter Care Teams Textile Screen Printer Relationship Specialty Start Date End Date Ekaterina Omer MD PCP - General General Internal Medicine 08/23/18 [address] [place] [address] documented as of this encounter
--- OUTSIDE RECORDS SUMMARY | 2021-10-13 15:49 | XMS_ITS | Encounter Summary ---
:1950 Author Organization [facility] [place] [address] Care Team Providers Name Role Phone Ekaterina Omer MD Primary Care Provider Reason for Visit Reason Onset Date Comments Bumped Appointment 10/05/2021 Encounter Details Date Type Department Care Team Description 10/05/2021 Telephone Orthopaedics at Sunday Doss MD Bumped Appointment [address] [phone] ORTHOPAEDIC SURGERY [phone] [place], [place] [address] (Wo rk) Social History Tobacco Use Types Packs/Day Years Used Date Former Smoker Cigarettes 1 10 Quit: 05/10/18 73 Smokeless Tobacco: Never Used Alcohol Use Standard Drinks/Week Comments No 0 (1 standard drink = 0.6 oz pure alcoho l) Sex Assigned at Date Recorded Female 01/18/2021 7:28 AM EST documented as of this encounter Miscellaneous Notes Telephone Encounter - Mayte Vasques - 10/05/2021 3:02 PM EDT LVM # 1 to bump 04/06/[address] Rouse @ [facility] to different date / time. documented in this encounter Plan of Treatment Upcoming Encounters Date Type Specialty Care Team Description 11/24/2021 Office Visit Neurology Gregg Lacy MD [place], [place] [address] (Wo rk) 04/06/2022 Appointment Radiology 04/06/2022 Office Visit Orthopaedics Wally Rouse MD [facility] ORTHOPAEDIC SURG [place], [place] [address] (Wo rk) documented as of this encounter Visit Diagnoses Not on filedocumented in this encounter Care Teams Brewery Worker Relationship Specialty Start Date End Date Ekaterina Omer MD PCP - General General Internal Medicine 08/23/18 [address] [place] [address] documented as of this encounter
--- OUTSIDE RECORDS SUMMARY | 2021-10-13 15:49 | XMS_ITS | Encounter Summary ---
:1950 Author Organization [facility] [place] [address] Care Team Providers Name Role Phone Ekaterina Omer MD Primary Care Provider Reason for Visit Reason Comments Follow-up XR L TEA Encounter Details Date Type Department Care Team Description 10/03/2021 Office Visit [place] [facility] Wally Rouse, S/p L total elbow [facility] 02/09/21 (Dr. Rouse) [facility] (Primary Dx) [place] [address] [phone] ORTHOPAEDIC SURGERY [place], [place] [address] Social History Tobacco Use Types Packs/Day Years [...] Sign Reading Time Taken Comments Blood Pressure 139/58 10/03/2021 8:54 AM EDT Pulse - - Temperature - - Respiratory Rate - - Oxygen Saturation - - Inhaled Oxygen Concentration - - Weight 109.3 kg (241 lb) 10/03/2021 8:54 AM EDT Height 160 cm (5' 2.99) 10/03/2021 8:54 AM EDT Body Mass Index 42.7 10/03/2021 8:54 AM EDT documented in this encounter Progress Notes Tamara Jones PA - 10/03/2021 8:50 AM EDT PATIENT NAME: Kiya Cummings AGE: 71 y.o. MR#: [id number] DATE OF VISIT: 10/03/2021 PROCEDURE: Left total elbow replacement, 02/09/21 Dr Rouse CHIEF COMPLAINT: ~7mos S/P above procedure HISTORY OF PRESENT ILLNESS: Ms. Cummings is a 71 y.o. female who presents approximately 7 months s/p theabove procedures for office follow up. Reports she has been doing well, denies pain at rest. She hassome pain when performing sweeping/mopping activities but otherwise denies pain. Pain does not persist after activity. Denies concerns with the incision. She does endorse some persistent numbness into her 4th/5th digits which has been present since surgery. PHYSICAL EXAM: BP 139/58 Ht 160 cm (5' 2.99) Wt 109.3 kg (241 lb) BMI 42.70 kg/m?? General appearance: in no acute distress, alert, cooperative Psych: cooperative with exam, appropriate Head: normocephalic, atraumatic EENT: EOMI grossly intact Lungs: non-labored respirations Musculoskeletal: ??? Inspection: Incision sites well healed without erythema or swelling ??? Palpation: Non tender ??? ROM/Strength: Extension to 40, flexion to 110. Supination to 70, pronation to 90. Able to actively extend the fingers, abduct, form OK signs. ??? Neurovascular: o UE- SGILT R/M/Ax nerve distributions, some perceived numbness in the ulnar distribution ; AIN/PIN/U nerves fire; 2+ radial pulse DIAGNOSTIC STUDIES: I personally reviewed xrays obtained today which demonstrate left total elbow hardware without complication. ASSESSMENT: Kiya is a 71 y.o. female who presents s/p left total elbow doing well. Discussed that she may continue ADLs as tolerated but should limit rotation activity away from the arm (mopping), okay to perform this as a light activity with elbow at side to reduce rotation/twisting at the elbow joint. We discussed limiting weight bearing on the arm, okay to use for transfers but should avoid heavylifting/pulling/pushing. PLAN: Continue ADLs. Kiya understands to contact us if she has any other questions or concerns. Thepatient will follow up February 2022 with new xrays for routine total joint follow up CHRISTOPHE Huddleston 10/03/2021 9:27 AM documented in this encounter Plan of Treatment Upcoming Encounters Date Type Specialty Care Team Description 11/24/2021 Office Visit Neurology Gregg Lacy MD [place], [place] [address] (Wo rk) 04/06/2022 Appointment Radiology 04/06/2022 Office Visit Orthopaedics Wally Rouse MD [facility] ORTHOPAEDIC SURG [place], [place] [address] (Wo rk) Scheduled Orders Name Type Priority Associated Diagnoses Order S chedule XR Elbow 3 Views Imaging Routine S/p L total elbow 1 Expected: 10/03/2021, Left (GENERIC) (Dr. Rouse) Expires: 03/13 documented as of this encounter Visit Diagnoses Diagnosis S/p L total elbow 02/09/21 (Dr. Rouse) - Primary documented in this encounter Care Teams Ground Crew Chief Relationship Specialty Start Date End Date Ekaterina Omer MD PCP - General General Internal Medicine 08/23/18 [address] [place] [address] documented as of this encounter
--- OUTSIDE RECORDS SUMMARY | 2021-10-13 15:49 | XMS_ITS | Encounter Summary ---
:1950 Author Organization [facility] [place] [address] Care Team Providers Name Role Phone Ekaterina Omer MD Primary Care Provider Encounter Details Date Type Department Care Team Description 06/27/2021 Orders Only [place] [facility] Berry Branham MD [facility] ([facility]) (Primary Dx) [place] [address] Pulmonary Medicine [phone] [place], [place] [address] Social History Tobacco Use Types [...] 11/24/2021 Office Visit Neurology Gregg Lacy MD [place], [place] [address] (Wo rk) 04/06/2022 Appointment Radiology 04/06/2022 Office Visit Orthopaedics Wally Rouse MD [facility] ORTHOPAEDIC SURG [place] [address] (Wo rk) documented as of this encounter Results Pulmonary Function Testing (09/15/2021 11:33 AM EDT) P athologist Signature FVC Actual 2.99 L COMPAS PFT Pre-BD FVC Pre-BD % of 111 % COMPAS PFT Predicted FVC Predicted 2.69 L COMPAS PFT FVC Pre-BD 0.64 COMPAS PFT Z-Score FVC Lower 1.95 L COMPAS PFT Limits of Normal FEV1 Actual 2.38 L COMPAS PFT Pre-BD FEV1 Pre-BD % 114 % COMPAS PFT of Predicted FEV1 Predicted 2.09 L COMPAS PFT FEV1 Pre-BD 0.85 COMPAS PFT Z-Score FEV1 Lower 1.51 L COMPAS PFT Limits of Normal FEV1 / FVC 80 % COMPAS PFT Actual Pre-BD FEV1/FVC Pre-BD 0.27 COMPAS PFT Z-Score FEV1 / FVC LLN 65 % COMPAS PFT [id number] Actual 2.40 L/s COMPAS PFT Pre-BD [id number] Pre-BD 136 % COMPAS PFT % of Predicted [id number] 1.77 L/s COMPAS PFT Predicted [id number] Pre-BD 0.81 COMPAS PFT Z-Score DLCO Hb Actual 17.55 mL/min/mmHg COMPAS PFT Pre-BD DLCO Hb Pre-BD 94 % COMPAS PFT % of Predicted DLCO Hb Pre-BD -0.35 COMPAS PFT Z-Score DLCO Hb 18.67 mL/min/mmHg COMPAS PFT Predicted DLCO UNC ACT 17.55 mL/min/mmHg COMPAS PFT PRE-BD DLCO UNC PRE-BD 94 % COMPAS PFT % of PRED DLCO UNC PRE-BD -0.35 % COMPAS PFT Z-SCORE DLCO UNC 18.67 mL/min/mmHg COMPAS PFT Predicted DLCO/VA Actual 3.55 mL/min/mmHg COMPAS PFT Pre-BD /L DLCO/VA Pre-BD 85 % COMPAS PFT % of Predicted DLCO/VA Pre-BD -1.04 COMPAS PFT Z-Score DLCO/VA 4.20 mL/min/mmHg COMPAS PFT Predicted /L Specimen (Source) Anatomical Location Collection Method / Collectio n Time Received Time / Laterality Volume Narrative COMPAS PFT - 09/15/2021 11:33 AM EDT FINDINGS: FEV1, FVC, and FEV1/VC are within normal limits. Diffusion capacity is normal. IMPRESSION: Normal spirometry. No diffus ion impairment. Compared to the last study on 01/02/17, the FVC and FEV1 are not significantly changed, but the DLCO decreased by 15%. No ambulatory oxygen desaturation. Procedure Note Unknown - 09/26/2021Formatting of this n ote might be different from the original. FINDINGS: FEV1, FVC, and FEV1/VC are wit hin normal limits. Diffusion capacity is normal. IMPRESSION: Normal spirometry. No diffus ion impairment. Compared to the last study on 01/02/17, the FVC and FEV1 are not significantly changed, but the DLCO decreased by 15%. No ambulatory oxygen desaturation. Berry Branham MD PFT ORDERABLES Performing Organization Address City/State/ZIP Code Phon e Number COMPAS PFT documented in this encounter Visit Diagnoses Diagnosis SOB (shortness of breath) - Primary Shortness of breath SOB (shortness of breath) Shortness of breath documented in this encounter Care Teams Molded Grid And Parts Inspector Relationship Specialty Start Date End Date Ekaterina Omer MD PCP - General General Internal Medicine 08/23/18 [address] [place] [address] documented as of this encounter
--- OUTSIDE RECORDS SUMMARY | 2021-10-13 15:49 | XMS_ITS | Clinical Summary ---
:1950 Author Organization [facility] [place] [address] Care Team Providers Name Role Phone Ekaterina Omer MD Primary Care Provider Allergies Active Allergy Reactions Severity Noted Date Comments Ciprofloxacin 10/02/2017 Nitrofurantoin Macrocrystal 10/02/2017 Penicillins 09/19/2020 Pramipexole 10/02/2017 Sulfa (Sulfonamide Antibiotics) Hives Medium 0 Medications Medication Sig Dispensed Refills Start Date End Date Status ascorbic acid, vitamin Take 500 mg by 0 Active C, (VITAMIN C) 500 mg mouth daily. Tablet cholecalciferol, Take 1 capsule by 0 Active Vitamin D3, 50 mcg mouth daily. (2,000 unit) Capsule levothyroxine Take 100 mcg by 0 Active (SYNTHROID) 100 mcg mouth daily. Tablet multivitamin Take 1 tablet by 0 Active (THERAGRAN) Tablet mouth daily. magnesium 250 mg Tablet Take 500 mg by 0 Active mouth daily. buPROPion (WELLBUTRIN Take 1 tablet by 30 tablet 3 08/07/2018 Active XL) 300 mg Tablet mouth every Extended Release 24 hr morning. Additional Information Patient not taking. Reported on 10/03/2021 atorvastatin (Lipitor) 20 mg atorvastatin 20 mg tablet 0 Active Tablet docusate sodium (Colace) 100 mg Take 100 mg by mouth as 0 Active Capsule needed. lisinopriL (Zestril) 5 mg 10 mg daily. 0 11/02/2020 Active Tablet escitalopram (Lexapro) 20 mg 0 11/02/2020 Active Tablet zaleplon (SONATA) 10 mg Capsule TAKE 1 CAPSULE BY MOUTH EVERY 0 11/02/2020 Active NIGHT AT BEDTIME NEEDED Xarelto 10 mg Tablet 0 11/02/2020 Active buPROPion SR (Wellbutrin SR) 0 12/27/2020 Active 150 mg tablet sustained-release 12 hr estradioL (ESTRACE) 0.01 % (0.1 INSERT 1 APPLICATORFUL 0 05/24/2021 Active mg/gram) Cream VAGINALLY 3 TIMES A WEEK phentermine (ADIPEX-P) 37.5 mg Take 37.5 mg by mouth daily. 0 06/21/2021 Active Tablet triamcinolone (Kenalog) 0.1 % APPLY SMALL AMOUNT TOPICALLY 0 05/24/2021 Active Ointment TO THE SKIN TWICE DAILY NEEDED omeprazole (PriLOSEC) 20 mg Take 20 mg by mouth daily. 0 09/04/2021 Active Capsule, Delayed Release(E.C.) pregabalin (Lyrica) 50 mg Take 50 mg by mouth 2 times 0 09/09/2021 Active Capsule daily. clotrimazole (LOTRIMIN) 1 % APPLY SMALL AMOUNT TOPICALLY 0 07/18/2021 Active Cream TO THE AFFECTED AREA TWICE DAILY UNTIL RASH RESOLVES DULoxetine DR (Cymbalta) 20 mg Take 20 mg by mouth daily. 0 08/02/2021 Active Capsule, Delayed Release(E.C.) Active Problems Problem Noted Date S/p L total elbow 02/09/21 (Dr. Rouse) 02/09/2021 Closed fracture of left distal humerus s/p ORIF Gitajn 09/21/20 09/21/2020 Phlebitis after infusion 09/15/2020 Mild cognitive impairment 08/26/2018 Morbid obesity with BMI of 40.0-44.9, adult 08/13/2017 Hypothyroidism 06/18/2017 Gastroesophageal reflux 06/18/2017 Pulmonary embolism 06/18/2017 Depression 06/18/2017 LEONARD treated with BiPAP 06/18/2017 OA (osteoarthritis) 06/18/2017 Diverticulosis of large intestine without perforation or abscess without 06/18/2017 bleeding Irritable bowel syndrome with both constipation and di arrhea 06/18/2017 Disorder of muscle, ligament, and fascia 08/27/2015 Urinary and fecal incontinence 08/12/2015 S/P panniculectomy 06/25/2014 Rectus diastasis 10/01/2013 Resolved Problems Problem Noted Date Resolved Date Mild intermittent asthma, uncomplicated 06/18/2017 06/18/2017 Anal sphincter incontinence 08/27/2015 06/18/2017 Mixed stress and urge urinary incontinence 08/27/2015 06/18/2017 Other specified aftercare following surgery 03/18/2014 06/18/2017 Abdominal pannus 10/01/2013 06/18/2017 Encounters Date Type Specialty Care Team Description 10/05/2021 Telephone Orthopaedics Wally Rouse Bumped App ointment MD 10/03/2021 Office Visit Orthopaedics Wally Rouse, S/p L darline dee MD 02/09/21 (Dr. Jolanta schulz) (Primary Dx) 10/03/2021 Hospital Encounter Radiology Wally Rouse, Pres ence of left MD artificial elbo w joint 09/26/2021 Telephone Thoracic Surgery Nieves Hamilton V, WARE CARRIER 09/19/2021 Hospital Encounter Radiology Nieves Hamilton Mult iple lung V, WARE CARRIER nodules 09/16/2021 TH Visit Pulmonology Berry Branham MD [facility] (Primary Dx); (TeleHealth) ROMO (dyspnea on exertion); Abnormal CT of the chest 09/15/2021 Hospital Encounter Pulmonology SOB (shor tness of breath) 09/13/2021 Orders Only Pulmonology Berry Branham MD 08/30/2021 Transcribe Orders Primary Care Roxana Horton addison neuralgia (Primary Dx) 08/11/2021 Telephone Thoracic Surgery Marin Glover from Last 3 Months Family History Medical History Relation Comments Obesity Brother 1 Stomach Cancer Brother 1 Diabetes Brother 2 Myocardial Infarction Brother 3 Parkinsonism Father Cervical Cancer Mother Coronary Artery Disease Mother High Blood Pressure Mother Thrombophilia Mother Alcohol Use Disorder Sister 1 Obesity Sister 2 Gallbladder Disease Son Gallstones s/p ray cystectomy Relation Status Comments Brother 1 Brother 2 Alive Brother 3 Alive Daughter Alive Father Mother Sister 1 Alive Sister 2 Alive Son Alive Social History Tobacco Use Types Packs/Day Years Used Date Former Smoker Cigarettes 1 10 Quit: 05/10/18 73 Smokeless Tobacco: Never Used Tobacco Cessation: Ready to Quit: Not As ked Alcohol Use Standard Drinks/Week Comments No 0 (1 standard drink = 0.6 oz pure alcoho l) Sex Assigned at Date Recorded Female 01/18/2021 7:28 AM EST Last Filed Vital Signs Vital Sign Reading Time Taken Comments Blood Pressure 139/58 10/03/2021 8:54 AM EDT Pulse 77 06/24/2021 12:53 PM EDT Temperature 36.3 ??C (97.3 ??F) 06/24/2021 12:53 PM EDT Respiratory Rate 20 06/24/2021 12:53 PM EDT Oxygen Saturation 98% 06/24/2021 12:53 PM EDT Inhaled Oxygen Concentration - - Weight 109.3 kg (241 lb) 10/03/2021 8:54 AM EDT Height 160 cm (5' 2.99) 10/03/2021 8:54 AM EDT Body Mass Index 42.7 10/03/2021 8:54 AM EDT Plan of Treatment Upcoming Encounters Date Type Specialty Care Team Description 11/24/2021 Office Visit Neurology Gregg Lacy MD [place], [place] [address] (Wo rk) 04/06/2022 Appointment Radiology 04/06/2022 Office Visit Orthopaedics Wally Rouse MD [facility] ORTHOPAEDIC SURG [place], [place] [address] (Wo rk) Health Maintenance Due Date Last Done Comments Hepatitis C Screening 01/04/1968 Tdap adult 1969 Tetanus vaccine 1969 Breast Cancer Share Decision Needed 1990 Breast Cancer screening 01/04/2000 Zoster vaccine (1 of 2) 01/04/2000 Advance Directive 2005 Bone Density Scan 2015 Pneumoccocal Vaccine: 65+ (1 - PCV) 2015 Covid-19 Vaccine (4 - Booster for 05/28/2021 01/28/2021, , Moderna series) 04/28/2020 Influenza (Flu) vaccine ( - 11/10/2021 Influenza standard series) Colonoscopy 12/25/2027 12/24/2017, 12/24/2017 Medical Devices Implanted Type Area Assistant Coach Device Shelf Model / Identifier Expiration Serial / Date Lot Kit Lead Neurostimulator 28cm 4.32mm Spa cing Mri Interstim ([id number]) - [id number] IMPLANTS N/A: [employer] [facility] 04/19/2022 [id number] / Implanted: Qty: 1 on 11/24/2020 by William Jones MD at [facility] The [employer] [facility] - [id number] / [employer] Generator Neurostimulator 0.3x1.7x2in Sp ine Permanent Mri ([id number]) - [id number] IMPLANTS N/A: [employer] [facility] 12/23/2021 [id number] / Implanted: Qty: 1 on 12/01/2020 by William Jones MD at [facility] [employer] [facility] - [id number] / [employer] Implant Cap Ulnar Elbow Sm Cocr Latitude Ev ([id number]) - [id number] IMPLANTS Left: JASE [id number] 11/30/2025 [id number] / Implanted: Qty: 1 on 02/09/2021 by Wally Rouse MD at [facility] [employer] - [id number] / JASE Procedures Procedure Name Priority Date/Time Associated Diagnosis Comme nts XR ELBOW 3 VIEWS Routine 10/03/2021 8:01 AM Presence of left R esults for this LEFT (GENERIC) EDT artificial elbow procedure are in joint the results section. CT CHEST WO Routine 09/19/2021 10:52 AM Multiple lung Results for this CONTRAST (GENERIC) EDT nodules procedure are in the results section. PULMONARY FUNCTION Routine 09/15/2021 11:33 AM SOB (shortness of Results for this TEST EDT breath) procedure are i n the results section. from Last 3 Months Results XR Elbow 3 Views Left (GENERIC) [...] who have questions please contact the health animal caretaker supervisor that requested your imaging first. ? Electronically signed by: Malik Bhandari, [facility] ([phone]), at 10/03/2021 11:31 AM Narrative 10/03/2021 11:31 AM EDT EXAMINATION: XR [...] ho have questions please contact the health animal caretaker supervisor that requested your imaging first. Electronically signed by: Malik Bhandari, [facility] ([phone]), at 10/03/2021 11:31 AM Wally Rouse MD IMG DX ORDERABLES CT Chest wo Contrast (Generic) (09/19/2021 10:52 [...] who have questions please contact the health animal caretaker supervisor that requested your imaging first. ? Electronically signed by: Malik Murrell, [facility] ([phone]), at 09/19/2021 1:00 PM Narrative 09/19/2021 1:00 [...] ho have questions please contact the health animal caretaker supervisor that requested your imaging first. Electronically signed by: Malik Murrell, [facility] ([phone]), at 09/19/2021 1:00 PM Nieves Burgos APRN IMCherelle CT ORDERABLES Pulmonary Function Testing (09/15/2021 11:33 AM EDT) [...] / FVC LLN 65 % COMPAS PFT TOV84-68 Actual 2.40 L/s COMPAS PFT Pre-BD [id number] Pre-BD 136 % COMPAS PFT % of Predicted MGQ69-77 1.77 L/s COMPAS PFT Predicted VQR00-85 Pre-BD 0.81 COMPAS PFT Z-Score DLCO Hb [...] City/State/ZIP Code Phon e Number COMPAS PFT from Last 3 Months Insurance Payer Benefit Plan / Subscriber ID Effective Phone Address T ype Group Dates MEDICARE MEDICARE PART [id number] 2017-Pres [phone] [facility] [place] [address] [employer]BS [id number] 2018-Prese [address] [facility] [place] [address] [place] [address] Advance Directives Documents on File Type Date Recorded Patient Beveler Explanati on Personal Beveler 09/15/2020 1:59 PM lucien singer Personal Beveler 03/07/2017 2:30 PM sent to patient Latest Code Status on File Code Status Date Activated Date Inactivated Comments Attempt Cardiopulmonary Resuscitation - 12/01/2020 9:30 AM 021 1:56 PM Inpatient Code Status decision made by: Patient Attempt Cardiopulmonary Resuscitation - 11/24/2020 7:22 AM 021 1:58 PM Inpatient Code Status decision made by: Patient Full Code 03/06/2014 2:38 PM 03/07/2014 3:15 PM Order Status: Initial Order Does patient have decision making capacity? Yes, Order is based on Patients wishes. Care Teams Batch Tester Relationship Specialty Start Date End Date Ekaterina Omer MD PCP - General General Internal Medicine 08/23/18 [address] [place] [address]
--- OUTSIDE RECORDS SUMMARY | 2021-10-13 15:49 | XMS_ITS | Encounter Summary ---
:1950 Author Organization [facility] [place] [address] Care Team Providers Name Role Phone Ekaterina Omer MD Primary Care Provider Encounter Details Date Type Department Care Team Description 09/15/2021 Hospital Encounter Pulmonology at [facility] SOB ([facility] breath) [place] [address] Social History Tobacco Use Types Packs/Day [...] TWICE DAILY UNTIL RASH RESOLVES DULoxetine DR Take 20 mg by mouth 0 08/02/2021 (Cymbalta) 20 mg daily. Capsule, Delayed Release(E.C.) omeprazole (PriLOSEC) Take 20 mg by mouth 0 09/04 20 mg Capsule, Delayed daily. Release(E.C.) estradioL (ESTRACE) INSERT 1 APPLICATORFUL 0 05/10 0.01 % (0.1 mg/gram) VAGINALLY 3 TIMES A Cream WEEK phentermine (ADIPEX-P) Take 37.5 mg by mouth 0 37.5 mg Tablet daily. triamcinolone (Kenalog) APPLY SMALL AMOUNT 0 05/10 0.1 % Ointment TOPICALLY TO THE SKIN TWICE DAILY NEEDED buPROPion SR 0 12/27/2020 (Wellbutrin SR) 150 mg tablet sustained-release 12 hr lisinopriL (Zestril) 5 10 mg daily. 0 11/02/2020 mg Tablet escitalopram (Lexapro) 0 11/02/2020 20 mg Tablet zaleplon (SONATA) 10 mg TAKE 1 CAPSULE BY 0 11/02 Capsule MOUTH EVERY NIGHT AT BEDTIME NEEDED Xarelto 10 mg Tablet 0 11/02/2020 docusate sodium Take 100 mg by mouth 0 (Colace) 100 mg Capsule as needed. atorvastatin (Lipitor) atorvastatin 20 mg 0 20 mg Tablet tablet buPROPion (WELLBUTRIN Take 1 tablet by mouth 30 tablet 3 XL) 300 mg Tablet every morning. Extended Release 24 hr levothyroxine Take 100 mcg by mouth 0 (SYNTHROID) 100 mcg daily. Tablet multivitamin Take 1 tablet by mouth 0 (THERAGRAN) Tablet daily. magnesium 250 mg Tablet Take 500 mg by mouth 0 daily. cholecalciferol, Take 1 capsule by 0 Vitamin D3, 50 mcg mouth daily. (2,000 unit) Capsule ascorbic acid, vitamin Take 500 mg by mouth 0 C, (VITAMIN C) 500 mg daily. Tablet cefpodoxime (Vantin) Take 1 tablet by mouth 20 tablet 0 09/16/2021 200 mg Tablet 2 times daily. cefpodoxime (Vantin) Take 1 tablet by mouth 20 tablet 0 09/16/2021 200 mg Tablet 2 times daily. acetaminophen (Tylenol) Take 2 tablets by 30 tablet 1 12/0109/16/2021 325 mg Tablet mouth every 4 hours as needed for Pain. documented as of this encounter Plan of Treatment Upcoming Encounters Date Type Specialty Care Team Description 11/24/2021 Office Visit Neurology Gregg Lacy MD [place], [place] [address] (Wo rk) 04/06/2022 Appointment Radiology 04/06/2022 Office Visit Orthopaedics Wally Rouse MD [facility] ORTHOPAEDIC SURG [place], [place] [address] (Wo rk) documented as of this encounter Procedures Procedure Name Priority Date/Time Associated Diagnosis Comme nts PULMONARY FUNCTION Routine 09/15/2021 11:33 AM SOB (shortness of Results for this TEST EDT breath) procedure are i n the results section. documented in this encounter Results Pulmonary Function Testing (09/15/2021 [...] / FVC LLN 65 % COMPAS PFT [id number] Actual 2.40 L/s COMPAS PFT Pre-BD [id number] Pre-BD 136 % COMPAS PFT % of Predicted [id number] 1.77 L/s COMPAS PFT Predicted AXP86-64 Pre-BD 0.81 COMPAS PFT Z-Score DLCO Hb [...] Visit Diagnoses Diagnosis SOB (shortness of breath) Shortness of breath documented in this encounter Care Teams Wooden Barrel Mechanic Relationship Specialty Start Date End Date Ekaterina Omer MD PCP - General General Internal Medicine 08/23/18 [address] [place] [address] documented as of this encounter
--- OUTSIDE RECORDS SUMMARY | 2021-10-13 15:49 | XMS_ITS | Encounter Summary ---
:1950 Author Organization [facility] [address] Care Team Providers Name Role Phone Ekaterina Omer MD Primary Care Provider Reason for Referral Consultation (Routine) - Closed Specialty Diagnoses / Procedures Referred By Contact Refer red To Contact Neurology Diagnoses Trigeminal neuralgia [facility] [employer] [address] [address] [place] [address] Referral ID Status Reason Start Date Expiration Date Visits V isits Requested Authorized [id number] Closed Consult, Test 08/30/2021 08/30/2022 6 6 & Treat PCP Updated and/or Approved Encounter Details Date Type Department Care Team Description 08/30/2021 Transcribe Orders eDH Incoming Roxana Horton addison neuralgia Referrals (Primary Dx) [phone] Social History Tobacco Use Types Packs/Day Years [...] 11/24/2021 Office Visit Neurology Gregg Lacy MD [place], [place] [address] (Wo rk) 04/06/2022 Appointment Radiology 04/06/2022 Office Visit Orthopaedics Wally Rouse MD [facility] ORTHOPAEDIC SURG [place], [place] [address] (Wo rk) Scheduled Referrals Name Type Priority Associated Diagnoses Order S chedule Referral to Outpatient Referral Routine Trigeminal neuralgia Ordered: Neurology 08/30/2021 documented as of this encounter Visit Diagnoses Diagnosis Trigeminal neuralgia - Primary documented in this encounter Care Teams Pig Sticker Relationship Specialty Start Date End Date Ekaterina Omer MD PCP - General General Internal Medicine 08/23/18 [address] [place] [address] documented as of this encounter
--- OUTSIDE RECORDS SUMMARY | 2021-10-13 15:49 | XMS_ITS | Encounter Summary ---
:1950 Author Organization [facility] [place] [address] Care Team Providers Name Role Phone Ekaterina Omer MD Primary Care Provider Encounter Details Date Type Department Care Team Description 09/26/2021 Telephone Thoracic Surgery Nieves Hamilton V BAKING [employer] [place] [address] [place] [address] [phone] (Wo rk) Social History Tobacco Use Types Packs/Day Years Used Date Former Smoker Cigarettes 1 10 Quit: 05/10/18 73 Smokeless Tobacco: Never Used Alcohol Use Standard Drinks/Week Comments No 0 (1 standard drink = 0.6 oz pure alcoho l) Sex Assigned at Date Recorded Female 01/18/2021 7:28 AM EST documented as of this encounter Miscellaneous Notes Telephone Encounter - Nieves Hamilton APRN - 09/26/2021 4:48 PM EDT Called to discuss recent CT Chest results from 09/19/21. We discussed her lung nodules are unchanged and no further imaging is required given the fpc stability since 2016. She voiced understandingand was agreeable to this plan. She denied further questions. She may follow up with the pulmonary nodule clinic as needed. Nieves Hamilton APRN 09/26/2021 documented in this encounter Plan of Treatment Upcoming Encounters Date Type Specialty Care Team Description 11/24/2021 Office Visit Neurology Gregg Lacy MD [place], [place] [address] (Wo rk) 04/06/2022 Appointment Radiology 04/06/2022 Office Visit Orthopaedics Wally Rouse MD [facility] ORTHOPAEDIC SURG [place], [place] [address] (Wo rk) documented as of this encounter Visit Diagnoses Not on filedocumented in this encounter Care Teams Seismic Interpreter Relationship Specialty Start Date End Date Ekaterina Omer MD PCP - General General Internal Medicine 08/23/18 [address] [place] [address] documented as of this encounter
--- OUTSIDE RECORDS SUMMARY | 2021-10-13 15:49 | XMS_ITS | Encounter Summary ---
:1950 Author Organization [facility] [place] [address] Care Team Providers Name Role Phone Ekaterina Omer MD Primary Care Provider Encounter Details Date Type Department Care Team Description 06/24/2021 Telephone Pulmonology at [facility] [place] [address] Social History Tobacco Use Types Packs/Day [...] 11/24/2021 Office Visit Neurology Gregg Lacy MD [place], [place] [address] (Wo rk) 04/06/2022 Appointment Radiology 04/06/2022 Office Visit Orthopaedics Wally Rouse MD [facility] ORTHOPAEDIC SURG [place], [place] [address] (Wo rk) documented as of this encounter Visit Diagnoses Not on filedocumented in this encounter Care Teams Skull Grinder Relationship Specialty Start Date End Date Ekaterina Omer MD PCP - General General Internal Medicine 08/23/18 [address] [place] [address] documented as of this encounter
--- OUTSIDE RECORDS SUMMARY | 2021-10-13 15:50 | XMS_ITS | Encounter Summary ---
:1950 Author Organization [facility] Address [facility] [place] [address] Care Team Providers Name Role Phone Ekaterina Omer MD Primary Care Provider Reason for Referral Physical Therapy (Routine) - Closed Specialty Diagnoses / Procedures Referred By Contact Refer red To Contact Diagnoses Acute pain of left shoulder Wally Rouse MD [facility] [place] [address] Referral ID Status Reason Start Date Expiration Date Visits V isits Requested Authorized [id number] Closed Evaluate and 04/04/2021 10/01/2021 12 12 Treat Reason for Visit Reason Comments Follow-up per Dr [id number] L TEA// NEEDS //mild cog impairment Encounter Details Date Type Department Care Team Description 04/04/2021 Office Visit Orthopaedics at [facility] Wally Rouse, Presence of left artificial elbow joint; [facility] Acute pain of left shoulder; [address] [facility] [place] [address] [phone] ORTHOPAEDIC SURGERY [place], [place] [address] Social History Tobacco Use Types [...] Sign Reading Time Taken Comments Blood Pressure 129/62 04/04/2021 8:33 AM EST Pulse 63 04/04/2021 8:33 AM EST Temperature - - Respiratory Rate - - Oxygen Saturation - - Inhaled Oxygen Concentration - - Weight 108 kg (238 lb) 04/04/2021 8:33 AM EST Height 160 cm (5' 3) 04/04/2021 8:33 AM EST Body Mass Index 42.16 04/04/2021 8:33 AM EST documented in this encounter Progress Notes Wally Rouse MD - 04/04/2021 8:50 AM EST Orthopaedic Surgery Clinic Note Referral: Kiya Cummings presents to see us in consultation today at the request of: [place] [address] Chief Complaint: Left shoulder pain and f/u left total elbow arthroplasty History of Present Illness: Kiya Cummings is a 71 y.o. 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 In terms of her total elbow arthroplasty she reports that she is to been doing very well. She is essentially pain-free with most activities at this point. She is able to use the elbow for activities of daily living. There is still mild tingling in her fourth and fifth fingers that extends into her ulnar forearm. While here, she also notes significant left shoulder and wrist pain. She reports that she did not have pain in either of these locations prior to her fall down the stairs earlier this year. At this point she did note pain in the left shoulder with movement and activity. She localizes it over the superior posterior aspect of the shoulder. She reports that the shoulders not feel particularly weak. It is not gotten much better over recent months. Objective: GENERAL: Well appearing, appropriate NEUROVASCULAR: Sensation intact to light touch in the Left upper extremity. Warm and well perfused hand. SKIN: No significant abrasions or lesions about the shoulder. MUSCULOSKELETAL: Left Shoulder Examination Exam somewhat limited total elbow arthroplasty in place with associated lifting restrictions. Tenderness to palpation: Yes, Posterior superiorly over posterior acromion Palpable crepitus: No Range of motion Left Forward Elevation: 140 External Rotation: 60 Strength Testing: Gentle range of motion tested with elevation and external rotation-appears intact Rotator Cuff Testing Unable to test due to total elbow arthroplasty Biceps/Labrum Groove TTP: Negative AC Joint TTP: Negative Impingement Neer's: Negative Hawkin's: Negative Elbow: Incision well-healed. Prior area of drainage with healing pinpoint scab. No evidence of drainage today. Active range of motion from 50 to 110 degrees. Supination 40 pronation 60. Sensation intact light touch in the median and radial distributions. Mildly decreased in the base ofthe fourth and fifth fingers and ulnar forearm. 5-5 strength with finger flexion, extension, spread. Warm well-perfused hand. Imaging: We independently reviewed the patient's imaging in the office today. X- ray imaging of the total elbow arthroplasty demonstrates stable alignment of the prosthesis without apparent loosening orchange. There is evidence of heterotopic ossification within the soft tissue surrounding the implant. Assessment/Plan: 71 y.o. female who presents for 2-month follow-up from her left total elbow arthroplasty. Fortunately her previous area of drainage has healed up. There is no evidence of effusion, erythema, or infection at this point. We discussed extensively the need to let us know if she develops any of those symptoms, as this would be concerning for infection. We also discussed the need to avoid dental work for the next 6 months. She should also limit her activities and avoid lifting anything heavy. Patient does lack significant range of motion, likely due to increased bony and soft tissue contracture she developed while being immobilized for 4 weeks post surgery. This was necessary due to her underlying hematoma and ongoing drainage. Hopefully this will improve with time, although I discussed with her that it may not. Did have significantly reduced range of motion prior to total elbow as well. Fortunately, she is pain-free and satisfied with that aspect of the surgery. In terms of the shoulder and wrist, it is unclear what these issues may be. At the shoulder she did have some bony tenderness which could be consistent with a fracture or other bony abnormality. I haveordered x-ray imaging of the left shoulder and wrist today. Have also written her for physical therapy to work on general strengthening and conditioning of the left upper extremity. I instructed them in particular to avoid all passive range of motion at the elbow. I will call patient with these results. I will see her back in clinic in 6 months for repeat evaluation of the elbow. Wally Rouse MD, MS Shoulder and Elbow Surgeon Department of Orthopaedic Surgery [facility] This note was created with the assistance of voice dictation software. Please excuse any related errors. documented in this encounter Plan of Treatment Upcoming Encounters Date Type Specialty Care Team Description 11/24/2021 Office Visit Neurology Gregg Lacy MD [place], [place] [address] (Wo rk) 04/06/2022 Appointment Radiology 04/06/2022 Office Visit Orthopaedics Wally Rouse MD [facility] ORTHOPAEDIC SURG [place], [place] [address] (Wo rk) Scheduled Referrals Name Type Priority Associated Diagnoses Order S chedule Referral to Outpatient Referral Routine Acute pain of left Or dered: Physical Therapy shoulder 04/04/2021 documented as of this encounter Results XR Elbow 3 Views [...] who have questions please contact the health physician locums urgent care that requested your imaging first. ? Narrative [...] ho have questions please contact the health physician locums urgent care that requested your imaging first. Wally Rouse MD IMG DX ORDERABLES XR Shoulder Left (Generic) (04/04/2021 9:38 AM EST) Anatomical Region Laterality Modality Shoulder Left Digital Radiography Specimen (Source) Anatomical Location Collection Method / Collectio n Time Received Time / Laterality Volume Impressions 04/04/2021 9:43 AM EST No fracture or other acute osseous pathology. Osteoarthritis. Thank you for letting us participate in the care of this patient. ??If you are a health care provider and have any questi ons regarding this report, please contact the number below. ??For patients who have questions please contact the health physician locums urgent care that requested your imaging first. ? Narrative 04/04/2021 9:43 AM EST EXAMINATION: XR SHOULDER LEFT (GENERIC) CLINICAL HISTORY: previous fall with giulia n. TECHNIQUE: AP, Grashey, scapular Y and axillary of the left shoulder COMPARISON: Left humerus December 19, 2020 FINDINGS: There is no fracture or dislocation. Osteophytes are present on the glenohume ral joint. There is narrowing of the acromioclavicular joint. Procedure Note Salvatore Sommers MD - 04/04/2021 EXAMINATION: XR SHOULDER LEFT (GENERIC) CLINICAL HISTORY: previous fall with giulia n. TECHNIQUE: AP, Grashey, scapular Y and axillary of the left shoulder COMPARISON: Left humerus December 19, 2020 FINDINGS: There is no fracture or dislocation. Osteophytes are present on the glenohume ral joint. There is narrowing of the acromioclavicular joint. IMPRESSION No fracture or other acute osseous patho logy. Osteoarthritis. Thank you for letting us participate in the care of this patient. If you are a health care provider and have any questi ons regarding this report, please contact the number below. For patients w ho have questions please contact the health physician locums urgent care that requested your imaging first. Wally Rouse MD IMG DX ORDERABLES XR Wrist 3 Views Left (04/04/2021 9:38 AM EST) Anatomical Region Laterality Modality Left Digital Radiography Specimen (Source) Anatomical Location Collection Method / Collectio n Time Received Time / Laterality Volume Impressions 04/04/2021 9:47 AM EST No fracture or other acute osseous pathology. Thank you for letting us participate in the care of this patient. ??If you are a health care provider and have any questi ons regarding this report, please contact the number below. ??For patients who have questions please contact the health physician locums urgent care that requested your imaging first. ? Narrative 04/04/2021 9:47 AM EST EXAMINATION: XR WRIST 3 VIEWS LEFT CLINICAL HISTORY: previous fall with wri st pain. TECHNIQUE: PA, oblique and lateral of the left wris t COMPARISON: Left forearm December 19, 2020 FINDINGS: No fracture or dislocation is present. Note is made of ulna positive variance. There is osteoarthritis of the first carpal metacarpal joint and the triscaph e joint characterized by joint space narrowing, articular surface sclerosis a nd osteophyte formation. Procedure Note Salvatore Sommers MD - 04/04/2021 EXAMINATION: XR WRIST 3 VIEWS LEFT CLINICAL HISTORY: previous fall with wri st pain. TECHNIQUE: PA, oblique and lateral of the left wris t COMPARISON: Left forearm December 19, 2020 FINDINGS: No fracture or dislocation is present. Note is made of ulna positive variance. There is osteoarthritis of the first carpal metacarpal joint and the triscaph e joint characterized by joint space narrowing, articular surface sclerosis a nd osteophyte formation. IMPRESSION No fracture or other acute osseous patho logy. Thank you for letting us participate in the care of this patient. If you are a health care provider and have any questi ons regarding this report, please contact the number below. For patients w ho have questions please contact the health physician locums urgent care that requested your imaging first. Wally Rouse MD IMG DX ORDERABLES documented in this encounter Visit Diagnoses Diagnosis Presence of left artificial elbow joint Elbow joint replacement by other means Acute pain of left shoulder Pain in left wrist Pain in joint, forearm Pain in left wrist Pain in joint, forearm Acute pain of left shoulder Presence of left artificial elbow joint Elbow joint replacement by other means documented in this encounter Care Teams Spray Gun Striper Relationship Specialty Start Date End Date Ekaterina Omer MD PCP - General General Internal Medicine 08/23/18 [address] [place] [address] documented as of this encounter
--- OUTSIDE RECORDS SUMMARY | 2021-10-13 15:50 | XMS_ITS | Encounter Summary ---
:1950 Author Organization [facility] Address [address] [facility] [place] [address] Care Team Providers Name Role Phone Ekaterina Omer MD Primary Care Provider Encounter Details Date Type Department Care Team Description 04/04/2021 Hospital Encounter XRay at [facility] Nasim Wally Pain in left wrist; [address] [facility] [address] Denia MD Acute pain of left shoulder [facility] [address] [phone] ORTHOPAEDIC SURGERY [place] [phone] Social History Tobacco Use Types Packs/Day Years [...] Sig Dispensed Refills Start Date End Date buPROPion SR 0 12/27/2020 (Wellbutrin SR) 150 [...] 1 tablet by mouth 20 tablet 0 04/08/2021 100 mg Tablet 2 times daily. oxyCODONE (Roxicodone) Take 1 tablet by mouth 10 tablet 0 1 05/01/2020 04/11/2021 5 mg Tablet every 4 hours as needed for Pain. cefpodoxime (Vantin) 0 02/18/202103/13 100 mg Tablet oxyCODONE (Roxicodone) Take 1 tablet by mouth 20 tablet 0 1 04/14/2020 04/11/2021 5 mg TabletIndications: every 4 hours as Elbow stiffness, left needed for Pain (Take 1 tablet every 4 hours as needed always taking as little as possible while managing pain.). acetaminophen (Tylenol) Take 2 tablets by 30 tablet 1 12/0109/16/2021 325 mg Tablet mouth every 4 hours as needed for Pain. senna-docusate Take 1 tablet by mouth 60 tablet 0 1 04/11/2021 (Pericolace) 8.6-50 mg daily. Tablet documented as of this encounter Plan of Treatment Upcoming Encounters Date Type Specialty Care Team Description 11/24/2021 Office Visit Neurology Gregg Lacy MD [place] [address] (Wo rk) 04/06/2022 Appointment Radiology 04/06/2022 Office Visit Orthopaedics Wally Rouse MD [facility] ORTHOPAEDIC SURG [facility] [place] [address] (Tulio raymond) documented as of this encounter Procedures Procedure Name Priority Date/Time Associated Diagnosis Comme nts XR WRIST 3 VIEWS Routine 04/04/2021 9:38 AM Pain in left wrist Results for this LEFT EST procedure are i n the results section. XR SHOULDER LEFT Routine 04/04/2021 9:38 AM Acute pain of left Results for this EST shoulder procedure are i n the results section. documented in this encounter Results XR Shoulder Left (Generic) (04/04/2021 9:38 AM [...] who have questions please contact the health daycare director that requested your imaging first. ? Narrative [...] ho have questions please contact the health daycare director that requested your imaging first. Wally Rouse [...] who have questions please contact the health daycare director that requested your imaging first. ? Narrative [...] ho have questions please contact the health daycare director that requested your imaging first. Wally Rouse MD IMG DX ORDERABLES documented in this encounter Visit Diagnoses Diagnosis Pain in left wrist Pain in joint, forearm Acute pain of left shoulder documented in this encounter Care Teams Client Project Coordinator Relationship Specialty Start Date End Date Ekaterina Omer MD PCP - General General Internal Medicine 08/23/18 [address] [place] [address] documented as of this encounter
--- OUTSIDE RECORDS SUMMARY | 2021-10-13 15:50 | XMS_ITS | Encounter Summary ---
:1950 Author Organization [facility] [place] [address] Care Team Providers Name Role Phone Ekaterina Omer MD Primary Care Provider Encounter Details Date Type Department Care Team Description 04/08/2021 Orders Only Orthopaedics at [facility] [place] [address] [phone] ORTHOPAEDIC SURG [place], [place] [address] (Wo rk) Social History Tobacco [...] 11/24/2021 Office Visit Neurology Gregg Lacy MD [place], [place] [address] (Wo rk) 04/06/2022 Appointment Radiology 04/06/2022 Office Visit Orthopaedics Wally Rouse MD [facility] ORTHOP[place]EDIC [place] [address] (Wo rk) documented as of this encounter Visit Diagnoses Not on filedocumented in this encounter Care Teams Sports Lawyer Relationship Specialty Start Date End Date Ekaterina Omer MD PCP - General General Internal Medicine 08/23/18 [address] [place] [address] documented as of this encounter
--- OUTSIDE RECORDS SUMMARY | 2021-10-13 15:50 | XMS_ITS | Encounter Summary ---
:1950 Author Organization [facility] Address [address] [facility] [place] [address] Care Team Providers Name Role Phone Ekaterina Omer MD Primary Care Provider Encounter Details Date Type Department Care Team Description 02/21/2021 Hospital Encounter XRay at [facility] Nasim Wally Closed bicondylar [address] [facility] [address] Denia MD fracture of distal [place], [place] [facility] end of left hum erus, [address] initial encounter [phone] [place] [address] Social History Tobacco Use Types Packs/Day Years [...] tablet buPROPion (WELLBUTRIN Take 1 tablet by 30 tablet 3 08/08/19 19 XL) 300 mg Tablet mouth every morning. Extended Release 24 hr levothyroxine Take 100 mcg by mouth 0 (SYNTHROID) 100 mcg daily. Tablet multivitamin Take 1 tablet by 0 (THERAGRAN) Tablet mouth daily. magnesium 250 mg Tablet Take 500 mg by mouth 0 daily. cholecalciferol, Take 1 capsule by 0 Vitamin D3, 50 mcg mouth daily. (2,000 unit) Capsule ascorbic acid, vitamin Take 500 mg by mouth 0 C, (VITAMIN C) 500 mg daily. Tablet cefpodoxime (Vantin) 0 02/18/202103/13 100 mg Tablet oxyCODONE (Roxicodone) Take 1 tablet by 20 tablet 0 021 04/11/2021 5 mg TabletIndications: mouth every 4 hours Elbow stiffness, left as needed for Pain (Take 1 tablet every 4 hours as needed always taking as little as possible while managing pain.). doxycycline Take 1 capsule by 28 capsule 0 02/09/20212020 (VIBRAMYCIN) 100 mg mouth 2 times daily Capsule for 14 days. acetaminophen (Tylenol) Take 2 tablets by 30 tablet 1 12/0109/16/2021 325 mg Tablet mouth every 4 hours as needed for Pain. senna-docusate Take 1 tablet by 60 tablet 0 09/21/202003/14 (Pericolace) 8.6-50 mg mouth daily. Tablet documented as of this encounter Plan of Treatment Upcoming Encounters Date Type Specialty Care Team Description 11/24/2021 Office Visit Neurology Gregg Lacy MD [place], [place] [address] (Wo rk) 04/06/2022 Appointment Radiology 04/06/2022 Office Visit Orthopaedics Wally Rouse MD [facility] ORTHOPAEDIC SURG [place], [place] [address] (Wo rk) documented as of this encounter Procedures Procedure Name Priority Date/Time Associated Diagnosis Comme nts XR ELBOW 3 VIEWS Routine 02/21/2021 1:17 PM Closed bicondylar Results for this LEFT (GENERIC) EST fracture of distal procedu re are in end of left humerus, the res ults initial encounter section. documented in this encounter Results XR Elbow 3 Views Left (GENERIC) (02/21/2021 1:17 PM EST) Anatomical Region Laterality Modality Elbow Left Digital Radiography Specimen (Source) Anatomical Location Collection Method / Collectio n Time Received Time / Laterality Volume Impressions 02/21/2021 2:24 PM EST Status post left total elbow arthroplasty without radiographic evidence of hardware complication. I have personally reviewed the image(s) and the resident's interpretation and agree with the findings, Justice Sullivan MD at 02/21/2021 2:24 PM Thank you for letting us participate in the care of this patient. ??If you are a health care provider and have any questi ons regarding this report, please contact the number below. ??For patients who have questions please contact the health care attendant that requested your imaging first. ? Narrative 02/21/2021 2:24 PM EST EXAMINATION: XR ELBOW 3 VIEWS LEFT (GENERIC) CLINICAL HISTORY: s/p total elbow arthro plasty TECHNIQUE: 3 views LEFT elbow COMPARISON: Multiple prior left elbow radiographs, m ost recently 02/09/2021 FINDINGS: Status post left total elbow arthroplast y. Suture anchor in the lateral humeral epicondyle, humeral and ulnar diaphyseal 2 mm round metallic components and percutaneous pins in both humeral condyl es are unchanged. Unchanged staple line along the posterior soft tissues. No per iprosthetic lucency or fracture. No malalignment or malpositioning. Resected radial head is unchanged. Expected appearance of normal postoperative soft tissues. Procedure Note Justice Sullivan MD - 02/21/2021Formatting o f this note might be different from the original. EXAMINATION: XR ELBOW 3 VIEWS LEFT (GENE VIPIN) CLINICAL HISTORY: s/p total elbow arthro plasty TECHNIQUE: 3 views LEFT elbow COMPARISON: Multiple prior left elbow radiographs, m ost recently 02/09/2021 FINDINGS: Status post left total elbow arthroplast y. Suture anchor in the lateral humeral epicondyle, humeral and ulnar diaphyseal 2 mm round metallic components and percutaneous pins in both humeral condyl es are unchanged. Unchanged staple line along the posterior soft tissues. No per iprosthetic lucency or fracture. No malalignment or malpositioning. Resected radial head is unchanged. Expected appearance of normal postoperative soft tissues. IMPRESSION Status post left total elbow arthroplast y without radiographic evidence of hardware complication. I have personally reviewed the image(s) and the resident's interpretation and agree with the findings, Justice Sullivan MD at 02/21/2021 2:24 PM Thank you for letting us participate in the care of this patient. If you are a health care provider and have any questi ons regarding this report, please contact the number below. For patients w ho have questions please contact the health care attendant that requested your imaging first. Wally Rouse MD IMG DX ORDERABLES documented in this encounter Visit Diagnoses Diagnosis Closed bicondylar fracture of distal end of left humerus, initial encounter documented in this encounter Care Teams Manager Switch Relationship Specialty Start Date End Date Ekaterina Omer MD PCP - General General Internal Medicine 08/23/18 [address] [place] [address] documented as of this encounter
--- OUTSIDE RECORDS SUMMARY | 2021-10-13 15:50 | XMS_ITS | Encounter Summary ---
:1950 Author Organization [facility] [place] [address] Care Team Providers Name Role Phone Ekaterina Omer MD Primary Care Provider Reason for Visit Reason Comments Post Op CO XR 02-09-21 Left Tot al replacement Encounter Details Date Type Department Care Team Description 02/21/2021 [place] [facility] [place], S/p L total elbow [facility] 02/09/21 (Dr. Rouse) [place] [address] [phone] ORTHOPAEDIC SURGERY [place] [address] Social History Tobacco Use Types Packs/Day Years [...] Sign Reading Time Taken Comments Blood Pressure 136/72 02/21/2021 1:25 PM EST Pulse - - Temperature - - Respiratory Rate - - Oxygen Saturation - - Inhaled Oxygen Concentration - - Weight 108.9 kg (240 lb) 02/21/2021 1:25 PM EST Height 160 cm (5' 3) 02/21/2021 1:25 PM EST Body Mass Index 42.51 02/21/2021 1:25 PM EST documented in this encounter Progress Notes Wally Rouse MD - 02/21/2021 1:30 PM EST Images from the original note were not included. Orthopaedic Surgery Post-Operative Visit Procedure: Left total elbow replacement, date of surgery 02/09/2021 Interval History: Kiya Cummings is a 71 y.o. female who presents for follow-up regarding her her lefttotal elbow replacement, date of surgery 02/09/2021. Patient has been doing well, denies any fevers, chills or drainage from the incision. Just had her splint removed today prior to the visit. Does endorse some numbness in the dorsal aspect of the ulnar hand, does not radiate to the digits. Endorses stiffness with left wrist range of motion. Weaning off of her oxycodone, last took 1 pill several days ago. Objective: GENERAL: Well appearing, appropriate MUSCULOSKELETAL: Left Elbow Examination Patient is in no acute distress, sitting comfortably in the exam room with her . Examination of her left elbow reveals well-healing posterior based incision. [place] are in place. Directly over the elbow, there is some increased bruising and swelling. Small punctate hole is noted, with a few drops of coagulated blood Please see photo below Did not range the elbow today Intact to wrist flexion extension, but patient endorses stiffness to previous splint Intact digit flexion/extension. Numbness in the dorsal ulnar aspect of her hand that appears to be improving, otherwise intact in median radial and axillary nerve distributions [facility] Imaging: We independently reviewed the patient's imaging in the office today. X-rays of the left elbow were reviewed. No change in hardware positioning from initial postoperativeimaging. No intraoperative complications. Assessment/Plan: 71 y.o. female who presents for follow up from the above procedure. She does have asignificant hematoma over the posterior aspect of her elbow likely secondary to her anticoagulation.After removal of the splint today she did develop drainage from a pinhole size opening over the olecranon skin away from her incision. I am concerned that this could lead to a draining fistula. We dressed it with sterile dressings and placed her into an extension splint. We will see her back in 4 daysfor repeat evaluation and dressing change. She should then be placed back into a splint once again. The josé manuel should not come out until next week. I will see her back next Sunday then for additional e valuation and hopefully staple removal. Wally Rouse MD, MS Shoulder and Elbow Surgeon Department of Orthopaedic Surgery [facility] documented in this encounter Plan of Treatment Upcoming Encounters Date Type Specialty Care Team Description 11/24/2021 Office Visit Neurology Gregg Lacy MD [place], [place] [address] (Wo rk) 04/06/2022 Appointment Radiology 04/06/2022 Office Visit Orthopaedics Wally Rouse MD [facility] ORTHOPAEDIC SURG [place], [place] [address] (Wo rk) documented as of this encounter Visit Diagnoses Diagnosis S/p L total elbow 02/09/21 (Dr. Rouse) documented in this encounter Care Teams Remote Broadcast Engineer Relationship Specialty Start Date End Date Ekaterina Omer MD PCP - General General Internal Medicine 08/23/18 [address] [place] [address] documented as of this encounter
--- OUTSIDE RECORDS SUMMARY | 2021-10-13 15:50 | XMS_ITS | Encounter Summary ---
:1950 Author Organization [facility] [place] [address] Care Team Providers Name Role Phone Ekaterina Omer MD Primary Care Provider Encounter Details Date Type Department Care Team Description 01/10/2021 Telephone Obstetrics and [place]necology [place] [address] Social History Tobacco Use Types Packs/Day Years Used Date Former Smoker Cigarettes 1 10 Quit: 05/10/18 73 Smokeless Tobacco: Never Used Alcohol Use Standard Drinks/Week Comments No 0 (1 standard drink = 0.6 oz pure alcoho l) Sex Assigned at Date Recorded Female 01/18/2021 7:28 AM EST documented as of this encounter Miscellaneous Notes Telephone Encounter - Alejandra Clemens RN - 01/10/2021 3:50 PM EDT TELEPHONE NOTE Caller: Pt Reason for call: Questions Assessment: Pt had interstim place on 12/01/20. Was having no issues. Pt a couple of days ago startedurinary leaking. Pt turned up volume and pt experienced pain in hip area same side of battery placement. No fever. No recent falls. Does not have UTI. Plan/Instructions: Pt is on program 1 and will change to program 2. Will check and see where she feels the sensation. Pt will call back with results. documented in this encounter Plan of Treatment Upcoming Encounters Date Type Specialty Care Team Description 11/24/2021 Office Visit Neurology Gregg Lacy MD [place], [place] [address] (Wo rk) 04/06/2022 Appointment Radiology 04/06/2022 Office Visit Orthopaedics Wally Rouse MD [facility] ORTHOPAEDIC SURG [place], [place] [address] (Wo rk) documented as of this encounter Visit Diagnoses Not on filedocumented in this encounter Care Teams Rivet Heater Relationship Specialty Start Date End Date Ekaterina Omer MD PCP - General General Internal Medicine 08/23/18 [address] [place] [address] documented as of this encounter
--- OUTSIDE RECORDS SUMMARY | 2021-10-13 15:50 | XMS_ITS | Encounter Summary ---
:1950 Author Organization [facility] [address] Care Team Providers Name Role Phone Ekaterina Omer MD Primary Care Provider Encounter Details Date Type Department Care Team Description 02/09/2021 Hospital Encounter Same Day Program at [facility] [place], [place] [id number] [place] [id number] [phone] Social History Tobacco Use Types Packs/Day Years [...] Sign Reading Time Taken Comments Blood Pressure 141/69 02/09/2021 3:00 PM EST Pulse 75 02/09/2021 3:00 PM EST Temperature 36.6 ??C (97.9 ??F) 02/09/2021 6:14 AM EST Respiratory Rate 15 02/09/2021 3:00 PM EST Oxygen Saturation 96% 02/09/2021 4:00 PM EST Inhaled Oxygen Concentration - - Weight - - Height - - Body Mass Index - - documented in this encounter Discharge Instructions Discharge InstructionsKarlene Chapa RN - 02/09/2021 2:15 PM EST POST ANESTHESIA INSTRUCTIONS Go home, rest, use caution on stairs. Change positions slowly. Do not smoke if you are alone. Diet light to regular as tolerated today. If nausea occurs start with clear liquids and progress slowly. No driving, operating machinery, alcoholic beverages and no important decisions for 24 hours. Monitor IV site for signs and symptoms of infection: increasing redness, swelling, foul drainage, ifoccurs contact M.D. Patients who have had endotrachial tubes (this tube, used by anesthesia department, is passed down your throat after you are asleep, to ensure safe air passage during your operation). A sore throat is normal due to the tube. Cold liquids or soothing lozenges will help ease the discomfort. The generalized muscle aches are due to the medication given to you just before the tube is inserted. As the medication wears off, you may develop muscle soreness, which usually goes away in 12-24 hours. SAME DAY PROGRAM POST-OPERATIVE INSTRUCTIONS What to Expect After a Nerve Block Prevent pain as the nerve block wears off. The nerve block you had to prevent pain during a procedure, will wear off in 12-48 hours. Once the block starts wearing off, it goes fast - often gone in 60 minutes. If you will need pain relief after the block wears off, your surgeon will prescribe pain medicine. ??? IMPORTANT: Start taking pain medicine before the nerve block wears off. ??? Eat something before taking the pain medicine to prevent upset stomach. If it's not mealtime, eating crackers or a light snack will help. ??? Nerve blocks sometimes wear off during the night. Take pain medicine before going to sleep, so you don't wake up in pain. A nerve block may create strange feelings in the blocked body part. Nerves control movement, pain, and normal sensations. When they are blocked to prevent pain, you may have feelings in the blocked area of: ??? Weakness ??? Numbness ??? Tingling ??? Heaviness ??? A feeling that your arm or leg has ???fallen asleep?? Just to repeat, the block can last 12-48 hours depending on the medicines used. Usually weakness wears off first, followed by a numb or tingly sensation. Pain can return unless you take pain medicines before the block wears off. If you had a shoulder block, you may notice these other signs: ??? Mild shortness of breath ??? A hoarse voice ??? Blurry vision ??? Eye pupils not equal in size ??? Drooping of your face on the same side as the nerve block These are common side effects after a shoulder nerve block. They should go away within 12 hours. *IMPORTANT: If these signs do not go away in 24 hours, please call the Anesthesiology Department: [phone] Shortness of breath: If you have severe shortness of breath that seems to go on and on, please go tothe nearest ER (emergency room). If a nerve block lasts longer than 48 hours, take action. If the nerve block does not wear off within 48 hours, please call the Anesthesiology Department: [phone] Protect the part of your body that is numb. Because a nerve block stops pain, pressure, or feeling in your blocked body part, you might be more at risk for injury. For example, you could burn your arm or leg without knowing it right away. Use these tips to protect your limb while it's numb: ??? While you are awake, try to change positions of your arm or leg often. This keeps you from putting too much pressure on a limb for a long time. ??? While sleeping, use pillows around the limb to stop too much pressure on it for too long. ??? If you have a cast or a tight dressing, check the color of your fingers or toes every few hours.If they have a strange color, call your doctor. ??? If you have a sling after an arm or hand block, wear it all the time until feeling returns to your arm or hand. The sling keeps you in the right position. If you do not have a sling, look at the position of the numb arm often, to make sure it's safe. ??? Ask your family or support person to help you stay aware and use these tips. Questions? Please call the Anesthesiology Department with concerns or questions: [phone] After hours: Call the hospital jackhammer splitter operator and ask for the anesthesiologist (merly pulido) ophthalmic surgeon: [phone] Updated: 01/17/21PATIENT INSTRUCTIONS POST-ANESTHESIA IMMEDIATELY FOLLOWING SURGERY: Do not drive or operate machinery for the first twenty four hours after surgery. Do not make any important decisions for twenty four hours after surgery or while taking narcotic pain medications or sedatives. If you develop intractable nausea and vomiting or a severe headache please notify your doctor immediately. FOLLOW-UP: Please make an appointment with your surgeon as instructed. You do not need to follow up with anesthesia unless specifically instructed to do so. WOUND CARE INSTRUCTIONS (if applicable): Keep a dry clean dressing on the anesthesia/puncture wound site if there is drainage. Once the wound has quit draining you may leave it open to air. Generally you should leave the bandage intact for twenty four hours unless there is drainage. If the epidural site drains for more than 36-48 hours please call the anesthesia department. QUESTIONS?: Please feel free to call your physician or the hospital jackhammer splitter operator if you have any questions, and they will be happy to assist you. SAME DAY PROGRAM POST-OPERATIVE INSTRUCTIONS What to Expect After a Nerve Block Prevent pain as the nerve block wears off. The nerve block you had to prevent pain during a procedure, will wear off in 12-48 hours. Once the block starts wearing off, it goes fast - often gone in 60 minutes. If you will need pain relief after the block wears off, your surgeon will prescribe pain medicine. ??? IMPORTANT: Start taking pain medicine before the nerve block wears off. ??? Eat something before taking the pain medicine to prevent upset stomach. If it's not mealtime, eating crackers or a light snack will help. ??? Nerve blocks sometimes wear off during the night. Take pain medicine before going to sleep, so you don't wake up in pain. A nerve block may create strange feelings in the blocked body part. Nerves control movement, pain, and normal sensations. When they are blocked to prevent pain, you may have feelings in the blocked area of: ??? Weakness ??? Numbness ??? Tingling ??? Heaviness ??? A feeling that your arm or leg has ???fallen asleep?? Just to repeat, the block can last 12-48 hours depending on the medicines used. Usually weakness wears off first, followed by a numb or tingly sensation. Pain can return unless you take pain medicines before the block wears off. If you had a shoulder block, you may notice these other signs: ??? Mild shortness of breath ??? A hoarse voice ??? Blurry vision ??? Eye pupils not equal in size ??? Drooping of your face on the same side as the nerve block These are common side effects after a shoulder nerve block. They should go away within 12 hours. *IMPORTANT: If these signs do not go away in 24 hours, please call the Anesthesiology Department: [phone] Shortness of breath: If you have severe shortness of breath that seems to go on and on, please go tothe nearest ER (emergency room). If a nerve block lasts longer than 48 hours, take action. If the nerve block does not wear off within 48 hours, please call the Anesthesiology Department: [phone] Protect the part of your body that is numb. Because a nerve block stops pain, pressure, or feeling in your blocked body part, you might be more at risk for injury. For example, you could burn your arm or leg without knowing it right away. Use these tips to protect your limb while it's numb: ??? While you are awake, try to change positions of your arm or leg often. This keeps you from putting too much pressure on a limb for a long time. ??? While sleeping, use pillows around the limb to stop too much pressure on it for too long. ??? If you have a cast or a tight dressing, check the color of your fingers or toes every few hours.If they have a strange color, call your doctor. ??? If you have a sling after an arm or hand block, wear it all the time until feeling returns to your arm or hand. The sling keeps you in the right position. If you do not have a sling, look at the position of the numb arm often, to make sure it's safe. ??? Ask your family or support person to help you stay aware and use these tips. Questions? Please call the Anesthesiology Department with concerns or questions: [phone] After hours: Call the hospital jackhammer splitter operator and ask for the anesthesiologist (merly pulido) ophthalmic surgeon: [phone] Updated: 01/17/21 Patient InstructionsSNestor ballard MD - 02/09/2021 6:34 AM EST Activity level: 1. Non-weight bearing on your Left upper extremity. 2. Remember to keep your Left upper extremity elevated as much as possible to decrease swelling and control pain. 3. You should wear the sling for comfort. Use pillows under the arm to assist with elevation. Anticoagulation: Restart your home dose of Xarelto on 02/10/21. Antibiotics: Doxycycline 1 tablet twice per day, once in the morning and once at night for 2 weeks..Take your Magnesium at lunch time only while on this medication. Diet: You may return to your usual diet, but increase your fluids and fiber intake to keep you hydrated and your bowels soft. You should increase your intake of high protein foods and fluids to help heal your injury. Driving: None until you are cleared to do so by your Orthopedic surgeon. You should not drive while you are on narcotic pain meds as they can affect your judgement and reaction time. Call your surgeon with any questions/concerns. Medications: 1. The pain medication you are on can cause constipation so increase your intake of fluids and fiberwhile you are on them. The stool softener, Pericolace, that has been prescribed can also be taken tofacilite a bowel movement. You can also take an vbim-eof-brziidv medication, Miralax if needed to combat constipation. 2. If you need a renewal on your narcotic pain medication, you need to give the Orthopedic clinic enough time to process your request. This can take up to three days, so plan accordingly. 3. Continue acetaminophen (Tylenol) 1,000mg every 8 hours around the clock until 02/19/21 - this canbe effective in controlling pain along with your other medications. After that you can take Tylenol as needed per package insert. Do not take more than 3,000mg of acetaminophen in a 24 hour period. 4. You have been discharged on a short acting narcotic, Oxycodone. You will be on this medication for a limited period of time only. Taper off this medication as your pain improves. 5. Do not take any NSAIDs including ibuprofen, Motrin or Aleve as this may impair the healing of your bone and tissues. Shower/Bath: You may shower BUT use a waterproof dressing (plastic bag taped at the top) to cover the incision/dressing. DO NOT submerge the wound. Remember you MUST to observe your weight bearing status and activity limitations when you shower so use a chair or bench for balance if you are unable to safely stand. A sponge bath may be easier. Wound Care: 1. Suture/staple removal 2 weeks post-op (at clinic appointment). 2. Leave the splint on until follow-up. Cast/Splint Care: Keep the cast or splint in place until your follow-up with Orthopedics. Keep the cast/splint clean and dry. It is easiest to sponge bathe, but if you must bathe, protect the cast/splint with a plastic bag high above the cast or splint and secure with adhesive tape. Do not submerge the cast in water at anytime. If the cast accidently gets wet, call the office immediately to have it replaced. A wet cast can cause severe skin and wound problems. Call your doctor ([phone]) if you develop: 1. Fever greater than 100.5 2. Severe nausea or vomiting 3. Increasing pain that is not controlled by pain medications 4. Increasing redness, swelling, or drainage from incisions 5. Change in sensation FOLLOWUP APPOINTMENTS: 1. A new clinic appointment will be scheduled for you to follow-up on the week of 02/21. Please contact the clinic prior to Sunday to confirm the appointment change. If the clinic is unable to change the appointment, instructions will be provided on management of the splint. Future Appointments Date Time Provider Department Center 02/28/2021 9:00 AM [facility] [place]/28/2021 10:00 AM [facility] DX ROOM 1 Xray [facility] Rad 02/28/2021 11:30 AM Wally Rouse MD [facility] [address] [place] [address] If you have questions or concerns: Sunday through Sunday, 8 AM - 5 PM, please call Wally Rouse MD, MD's office at . If it is after 5 PM or on the weekend, please call and ask to speak with the Orthopedic resident on-call. documented in this encounter Medications at Time of Discharge [...] C, (VITAMIN C) 500 mg daily. Tablet doxycycline Take 1 capsule by 28 capsule 0 02/09/20212020 (VIBRAMYCIN) 100 mg mouth 2 times daily Capsule for 14 days. oxyCODONE (Roxicodone) Take 1-2 tablets by 20 tablet 0 03/202002/11/2021 5 mg Tablet mouth every 4 hours as needed for Pain. acetaminophen (Tylenol) Take 2 tablets by 30 tablet 1 12/0109/16/2021 325 mg Tablet mouth every 4 hours as needed for Pain. senna-docusate Take 1 tablet by 60 tablet 0 09/21/2020/3 03/2021 (Pericolace) 8.6-50 mg mouth daily. Tablet documented as of this encounter Progress Notes Karlene Chapa RN - 02/09/2021 2:48 PM EST Patient resting comfortably now. Denies pain or nausea.Continue to monitor post op course. Karlene Chapa RN - 02/09/2021 2:13 PM EST Patient tolerated nerve block well. IV fentanyl was given prior to the nerve block. Karlene Chapa RN - 02/09/2021 1:38 PM EST Patient continues to have left elbow pain(8/10). Regional block team plans to do a supraclavicular nerve block. Nestor Rick MD - 02/09/2021 1:01 PM EST Post-op evaluation of the left hand: Sensation intact in R/M/U nerve distributions Motor intact to grasp, intrinsics, thumb retropulsion, thumb IP joint flexion Brisk capillary refill distally documented in this encounter H&P Notes Nestor Rick MD - 02/09/2021 6:30 AM EST The patient's history and physical exam have been reviewed and completed. There has been no intervalchange from that of the pre-operative history and physical exam done within the last 30 days. CV: RRR Lungs: CTAB documented in this encounter Miscellaneous Notes Brief Op Note - Nestor Rick MD - 02/09/2021 1:00 PM EST Brief Operative Note Patient Name: Kiya Cummings : [id number] MR#: [id number] Case Date: 02/09/2021 Surgeon: Surgeon(s) and Role: * Wally Rouse MD - Primary * Nestor Rick MD - Resident Preoperative diagnosis: Left total elbow arthroplasty Postoperative diagnosis: Left total elbow arthroplasty Procedure(s) (LRB): TOTAL ELBOW REPLACEMENT (WRVU 22) (Left) Anesthesia: General Findings: see detailed op note Complications: none Estimated Blood Loss: 250 mL * No values recorded between 02/09/2021 8:16 AM and 02/09/2021 12:16 PM * Specimens removed during surgery: 3 cultures of the left elbow Fluids: Intraprocedure Crystalloid Total Intake Lactated Ringers 1400.00 mL tranexamic acid (Cyklokapron) 1,634 mg in sodium chloride 0.9% 116.34 mL infusion 116.34 mL Total Intake 1516.34 mL Output Urine Output 300 mL Blood Loss 250 mL Total Output 550 mL Net Net Volume 966.34 mL PRBCs: none (See Anesthesia Record/Report for Other Blood Products) Urine Output: 200 mL Drains: None Disposition: awakened from anesthesia, extubated and taken to the recovery room in a stable condition, having suffered no apparent untoward event. Condition: doing well without problems (Please see the Surgical Encounter Summary for any Implant and Specimen details pertinent to this patient.) Infection Bundle used? N/A Op Note - Wally Rouse MD - 02/09/2021 8:16 AM EST [facility] [place] Patient Name: Kiya Cummings : [id number] MR#: [id number] Case Date: 02/09/2021 Surgeon: Surgeon(s) and Role: * Wally Rouse MD - Primary * Nestor Rick MD - Resident Preoperative diagnosis: Left total elbow arthroplasty Postoperative diagnosis: Left total elbow arthroplasty Procedure(s) (LRB): TOTAL ELBOW REPLACEMENT (WRVU 22) (Left) REMOVAL OF IMPLANT, DEEP, UPPER EXTREMITY (WRVU 5.96) (Left) Anesthesia: General Estimated Blood Loss: 250 mL Specimens removed during surgery: Cultures x 3. Drains: None Surgical Closure: Primary Closure - skin incision is completely closed without any wires, sin, drains or other devices Disposition: awakened from anesthesia, extubated and taken to the recovery room in a stable condition, having suffered no apparent untoward event. Condition: doing well without problems (Please see the Surgical Encounter Summary for any Implant and Specimen details pertinent to this patient.) Findings: Severely limited range of motion preoperatively from approximately 60 to 80 degrees. No evidence of infection. Significant comminution and fragmentation of the distal humerus with evidence ofcartilage loss. Post implant placement range of motion of proximally 15 to 130 degrees. HPI/Surgical Indications: The patient is a 71-year-old female who had a fall this past summer resulting in a left distal humerus fracture. 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 Patient presented to [facility] with a severe contracture and ongoing pain. We discussed total elbow arthroplasty with a goal of pain relief. After considering the risks and benefits of this procedure, the patient elected to move forward with surgery. Procedure Description: The patient was identified in the preoperative holding area where her cristy and consent were confirmed. She was then brought to the operating room and identified upon arrival. Shewas moved to the operating table in the supine position and given general anesthesia. Her arm was prepped with chlorhexidine, alcohol, and ChloraPrep before being draped in a sterile usual fashion. A timeout was held according to protocol. The patient received preoperative antibiotics. A sterile tourniquet was placed high on the operative arm. Started out by examining her palpable anatomy and previous incision. We then exsanguinated the arm and raised the tourniquet to 250 mmHg. The tourniquet was initially raised for 76 minutes before was then taken down for approximately 45 minutes. Was then raised once again during cementation for an additional approximately 30 minutes. We then made a 20 cm incision over the medial posterior aspect of the elbow. We continued the dissection down through the subcutaneous tissues using Bovie electrocautery for hemostasis and a deep blade. We raised flaps both medially and laterally to expose the posterior elbow. Next we identified the ulnar nerve within the triceps and decompressed it from proximal to distal into the flexor carpi ulnaris. The nerve was mobilized so that it did not interfere with the operative field. We then move forward with a hai popup approach. We measured the transepicondylar distance and found to be 7 cm. We then made a cristy at the ulna and at the triceps accordingly. We started laterally and released the fascia and muscle off of the ulna back across the capitellum and then down along thelateral border of the triceps. Similarly, on the medial side we released the fascia and FCU from theulna and progressed proximally along the elbow to the level of the trochlea before angling back to the triceps. We did release along the border of the triceps tendon. Next, we dissected out the tricepstendon using a tenotomy scissor. We then transected it proximally 7 cm from its insertion. The ends were protected for later repair. Deep to the tendon we then transected the muscular capsular layer ofthe deep head of the triceps close to its insertion, leaving enough cuff for later repair. Followingthis, we went back and continued the release along the medial lateral aspects of the ulna and release the collateral ligaments. These were tagged for later repair. At this point we are able to begin todislocate the elbow. There was significant scar tissue and bony fragments that prevented this from occurring easily. We sequentially released more and more soft tissue and removed bone fragments as able to allow the elbow to ultimately dislocate. There was significant comminution anterior to the humerus which was carefully removed using tenotomy scissors and cautery. We released as much capsule anteriorly as we possibly could safely in order to improve range of motion. The radial head was deformed and arthritic and it was resected. In the setting of a linked implant and post-traumatic deformity, we elected to avoid placing a radial head prosthesis. We then moved forward with preparation humerus. An oscillating saw was used to remove bone wafers from the trochlea. We then used a bur to open up the canal and start broaching. We broached appropriately up to a size small which matched the size of her anatomy. In order to get the broached past we hadto remove skinny wires as needed. With the broach in place and then put on the cutting guide and score the appropriate cuts. These were completed using an oscillating saw and bur. This occurred in piecemeal fashion as the underlying threaded K wires had to be removed carefully. A piece of medial epicondyle was fractured while removing the wire, however this did not impact the support of the implant and was very small in size. Once were satisfied with this we then used the addition of broach to prepare for the trial insertion. The trial was inserted and found to impinge anteriorly. We evaluated thisand found that there was a large bony prominence likely related to the previous trauma which prevented the anterior flange of the stem from going down appropriately. We carefully expose this and retract the soft tissues of the way before using an osteotome to release this. We are unable to safely remove the bone but we did get it out of the way for the humeral flange. Once were satisfied with this, we moved onto the ulna. At the ulna we used the oscillating saw to remove the prominent olecranon posteriorly and coronoid anteriorly to avoid later impingement. We then used a bur to open up the canal before using the opening reamer to increase this passage. The broaches were then passed sequentially to the appropriate depth. Ultimately we found that the trial stem felt well. A trial reduction was completed and the elbow moved through an appropriate range of motion from approximately 15 degrees of extension to 130 degreesof flexion. We evaluated the anterior soft tissues did not find any thing that we could safely release to provide additional extension. The cuts were at the appropriate level and there is no indicationto make them deeper to improve range of motion. With this in mind, we accepted the range of motion that we had. At this point we prepared to implant the final prosthesis. Drill holes were placed to the collateralligament insertions and 2-0 FiberWire was passed through these for later repair. The canals were well irrigated with an grades 1 thru 5 teacher. Cement restrictor was replaced. Medium viscosity cement with vancomycin was mixed on the back table. Was then passed in the canals. The prostheses were placed without complication. The elbow was then placed into extension and held there until the cement was hard. We then evaluated the elbow and removed all excess cement. The end cap was placed on the ulnar component. Thepatient was taken through a range of motion and found to be satisfactory. The tourniquet was taken down and hemostasis was achieved. We then moved forward with closure. The collateral ligaments which had been previously tagged were repaired to the bone. The triceps was then repaired in layers with 0 Vicryl for the capsular-muscular layer and #2 FiberWire's and a grasping stitch configuration for the tendon. We found that this provided great fixation and excursion. The medial and lateral intervals were then closed with 0 Vicryl in a locked running fashion. The ulnar nerve was found to be unstable to medial epicondyle and was transposed anteriorly into a pouch of subcutaneous tissue. The subcutaneous tissue was affixed to the medial epicondyle to provide support to keep it transposed anteriorly. The medial intermuscular septum was resected as needed to provide additional excursion and remove a point of impingement. 1 g of vancomycin powder was placed in the wound. The subcutaneous tissues were closed with 0 and 2-0 Vicryl in interrupted inverted fashion. The skin was closed with josé manuel. The patient was placed into a anterior extension splint. She tolerated the procedure well. She was awakened taken the PACU recover. Infection Bundle used? N/A Attestation: Case Date: 02/09/2021 I was present and I participated during the entire procedure (does not need to include opening and closing). Wally Rouse MD 02/10/2021 documented in this encounter Plan of Treatment Upcoming Encounters Date Type Specialty Care Team Description 11/24/2021 Office Visit Neurology Gregg Lacy MD [place], [place] [address] (Wo rk) 04/06/2022 Appointment Radiology 04/06/2022 Office Visit Orthopaedics Wally Rouse MD [facility] ORTHOPAEDIC SURG [place], [place] [address] (Wo rk) documented as of this encounter Procedures Procedure Name Priority Date/Time Associated Diagnosis Comme nts REMOVAL OF IMPLANT, Routine 02/10/2021 12:20 DEEP, UPPER PM EST EXTREMITY XR ELBOW 2 VIEWS STAT 02/09/2021 1:35 PM Resul ts for this LEFT EST procedure are i n the results section. HC GRAM STAIN FOR Routine 02/09/2021 9:37 AM BACTERIA EST HC GRAM STAIN FOR Routine 02/09/2021 9:37 AM BACTERIA EST HC GRAM STAIN FOR Routine 02/09/2021 9:37 AM BACTERIA EST JOINT CULTURE Routine 02/09/2021 9:37 AM Results for this EST procedure are i n the results section. JOINT CULTURE Routine 02/09/2021 9:37 AM Results for this EST procedure are i n the results section. JOINT CULTURE Routine 02/09/2021 9:37 AM Results for this EST procedure are i n the results section. ANAEROBIC CULTURE Routine 02/09/2021 9:37 AM Resu lts for this EST procedure are i n the results section. ANAEROBIC CULTURE Routine 02/09/2021 9:37 AM Resu lts for this EST procedure are i n the results section. ANAEROBIC CULTURE Routine 02/09/2021 9:37 AM Resu lts for this EST procedure are i n the results section. REMOVAL OF IMPLANT, 02/09/2021 7:38 AM Left total elbo w DEEP, UPPER EST arthroplasty EXTREMITY (WRVU 5.96) TOTAL ELBOW 02/09/2021 7:38 AM Left total elbow REPLACEMENT (VU EST arthroplasty 22) TOTAL ELBOW Routine 02/09/2021 6:00 AM REPLACEMENT-ORTHO EST IMPLANTABLE DEVICES 02/09/2021 12:00 SCAN AM EST documented in this encounter Results XR Elbow 2 Views Left (02/09/2021 1:35 PM EST) Anatomical Region Laterality Modality Elbow Left Digital Radiography Specimen (Source) Anatomical Location Collection Method / Collectio n Time Received Time / Laterality Volume Impressions 02/09/2021 2:15 PM EST Status post left elbow arthroplasty without radiographic finding of complication or acute abnormality. Thank you for letting us participate in the care of this patient. ??If you are a health care provider and have any questi ons regarding this report, please contact the number below. ??For patients who have questions please contact the health health care legal assistant that requested your imaging first. ? Electronically signed by: Екатерина rollins MD, [facility] ([phone]), at 02/09/2021 2:15 PM Narrative 02/09/2021 2:15 PM EST EXAMINATION: XR ELBOW 2 VIEWS LEFT CLINICAL HISTORY: S/p total elbow evaluate implants TECHNIQUE: 2 views LEFT elbow, portable in SDP at 1 324 COMPARISON: Radiographs December 19, 2020 FINDINGS: Interval placement of total elbow arthro plasty hardware. Suture anchor in lateral humeral epicondyle and partially imaged percutaneous pins in both humeral condyles are unchanged. Round, 2 mm metallic densities in the ulna and humeral diaphyses are new and suggest co mponents of the arthroplasty hardware. Hardware is intact without adjacent luce ncy, periprosthetic fracture or joint malalignment. Resected radial head is un changed. Soft tissue air, pneumarthrosis and skin josé manuel are concordant with the immediately preceding surgery. Procedure Note Екатерина Wells MD - 02/09/2021Forma tting of this note might be different from the original. EXAMINATION: XR ELBOW 2 VIEWS LEFT CLINICAL HISTORY: S/p total elbow evaluate implants TECHNIQUE: 2 views LEFT elbow, portable in SDP at 1 324 COMPARISON: Radiographs December 19, 2020 FINDINGS: Interval placement of total elbow arthro plasty hardware. Suture anchor in lateral humeral epicondyle and partially imaged percutaneous pins in both humeral condyles are unchanged. Round, 2 mm metallic densities in the ulna and humeral diaphyses are new and suggest co mponents of the arthroplasty hardware. Hardware is intact without adjacent luce ncy, periprosthetic fracture or joint malalignment. Resected radial head is un changed. Soft tissue air, pneumarthrosis and skin josé manuel are concordant with the immediately preceding surgery. IMPRESSION Status post left elbow arthroplasty with out radiographic finding of complication or acute abnormality. Thank you for letting us participate in the care of this patient. If you are a health care provider and have any questi ons regarding this report, please contact the number below. For patients w ho have questions please contact the health health care legal assistant that requested your imaging first. Electronically signed by: Екатерина rollins MD, [facility] ([phone]), at 02/09/2021 2:15 PM Wally Rouse MD IMG DX ORDERABLES Anaerobic Culture (02/09/2021 9:37 AM EST) [facility] Method Time Signature Anaerobic No anaerobic [facility] organisms [facility] LABORATORY Specimen Anatomical Collection Method Collection Time Receive d Time (Source) Location / / Volume Laterality Joint LEFT ELBOW REGION 02/09/2021 9:37 AM 1203/2020 9:57 STRUCTURE / EST AM EST Unknown Comment: Left elbow #3 Resulting Agency Comment Spec In Lab Wally Rouse MD MICROBIOLOGY - GENERAL ORDER DEAN Performing Organization Address City/[facility]/[place] [address] Joint Culture (02/09/2021 9:37 AM EST) Component Value Ref Test Analysis Performed At [facility] Range Method Time Signature Joint Culture No growth at [address] [facility] LABORATORY Gram Stain No Neutrophils seen. [facility] No microorganisms seen. [facility] LABORATORY Specimen Anatomical Collection Method Collection Time Receive d Time (Source) Location / / Volume Laterality Joint LEFT ELBOW REGION 02/09/2021 9:37 AM 03/2020 9:57 STRUCTURE / EST AM EST Unknown Comment: Left elbow #3 Resulting Agency Comment Spec In Lab Wally Rouse MD MICROBIOLOGY - GENERAL ORDER DEAN Performing Organization Address City/[facility]/[place] [address] Anaerobic Culture (02/09/2021 9:37 AM EST) [facility] Method Time Signature Anaerobic No anaerobic [place]ALON ALIREZA Culture organisms [facility] LABORATORY Specimen Anatomical Collection Method Collection Time Receive d Time (Source) Location / / Volume Laterality Joint LEFT ELBOW REGION 02/09/2021 9:37 AM 03/2020 9:57 STRUCTURE / EST AM EST Unknown Comment: Left elbow #2 Resulting Agency Comment Spec In Lab Wally Rouse MD MICROBIOLOGY - GENERAL ORDER DEAN Performing Organization Address City/[facility]/[place] [address] Joint Culture (02/09/2021 9:37 AM EST) Component Value Ref Test Analysis Performed At [facility] Range Method Time Signature Joint Culture No growth at [address] [facility] LABORATORY Gram Stain Few Neutrophils seen [place] No microorganisms seen. [facility] LABORATORY Specimen Anatomical Collection Method Collection Time Receive d Time (Source) Location / / Volume Laterality Joint LEFT ELBOW REGION 02/09/2021 9:37 AM 1203/2020 9:57 STRUCTURE / EST AM EST Unknown Comment: Left elbow #2 Resulting Agency Comment Spec In Lab Wally Rouse MD MICROBIOLOGY - GENERAL ORDER DEAN Performing Organization Address City/[facility]/ZIP Code [place] [address] Anaerobic Culture (02/09/2021 9:37 AM EST) [facility] Method Time Signature Anaerobic No anaerobic [facility] [facility] organisms [facility] LABORATORY Specimen Anatomical Collection Method Collection Time Receive d Time (Source) Location / / Volume Laterality Joint LEFT ELBOW REGION 02/09/2021 9:37 AM 1203/2020 9:57 STRUCTURE / EST AM EST Unknown Comment: Left elbow #1 Resulting Agency Comment Spec In Lab Wally Rouse MD MICROBIOLOGY - GENERAL ORDER DEAN Performing Organization Address City/[facility]/[place] [address] Joint Culture (02/09/2021 9:37 AM EST) Component Value Ref Test Analysis Performed At [facility] Method Time Signature Joint Culture No growth at [address] [facility] LABORATORY Gram Stain No Neutrophils seen. [place] No microorganisms seen. [facility] LABORATORY Specimen Anatomical Collection Method Collection Time Receive d Time (Source) Location / / Volume Laterality Joint LEFT ELBOW REGION 02/09/2021 9:37 AM 03/2020 9:57 STRUCTURE / EST AM EST Unknown Comment: Left elbow #1 Resulting Agency Comment Spec In Lab Wally Rouse MD MICROBIOLOGY - GENERAL ORDER DEAN Performing Organization Address City/[facility]/[place] [address] SCAN DOC: IMPLANTABLE DEVICES (02/09/2021 12:00 AM EST) Narrative This result has an attachment that is no t available. Unknown MEDIA MGR SCAN EXT ORDR/RSLT documented in this encounter Visit Diagnoses Diagnosis S/p L total elbow 02/09/21 (Dr. Rouse) documented in this encounter Administered Medications Inactive Administered Medications - up to 3 most recent administrations Medication Order MAR Action Action Date Dose Rate Site acetaminophen (Tylenol) tablet Given 02/09/2021 6:43 AM EST 1,00 0 mg 1,000 mg 1,000 mg, Oral, ONCE, 1 dose, On Sun02/09/21 at 0630, Maximum dose of acetaminophen is 4000 mg from all sources in 24 hours. When ordered for pain, acetaminophen should be given even when other ordered pain medications are indicated. , Routine fentaNYL (PF) (50 mcg/mL) injection 50 m cg Given 02/09/2021 1:57 PM EST 50 mcg 50 mcg, Intravenous, EVERY 5 MIN PRN, Starting on Sun02/09/21 at 0643, Until Sun02/09/21 at 1759, Pain, or prior to injection of local anesthetic., Hold for respiratory rate less than 8 breaths per minute. (maximum dose 200 mcg), Day of Surgery (Day of Procedure), Routine Given 02/09/2021 1:52 PM EST 50 mcg HYDROmorphone (Dilaudid) (0.2 mg/1 mL) Given 02/09/2021 1:06 PM EST 0.2 mg injection syringe 0.2 mg 0.2 mg, Intravenous, EVERY 10 MIN PRN, Starting on Sun02/09/21 at 1300, Until Sun02/09/21 at 1759, Pain, For Mild to Moderate Pain (1-5 out of 10), Hold for respiratory rate less than 10 per minute. Maximum dose 3 mg over one hour including administrations in the OR. If multiple pain medications are ordered, start with HYDROmorphone or morphine and use fentaNYL for breakthrough pain, PACU Recovery, Routine ketorolac (Toradol) (15 mg/mL) injection 15 mg 15 mg, Intravenous, EVERY 8 HOURS PRN, S tarting on Sun02/09/21 at 0609, Until Sun02/09/21 at 2000, Pain, Routine oxyCODONE (Roxicodone) tablet 10-15 mg 10-15 mg, Oral, EVERY 4 HOURS PRN, Starting on 04/01 at 0609, Until Sun02/09/21 at 2000, Pain, severe pain (7-10 ), Initial dose 10mg. If pain control not adequate in 60 minutes, give additional 5mg, Routine oxyCODONE (Roxicodone) tablet 5-10 mg 5-10 mg, Oral, EVERY 4 HOURS PRN, Starting on 02/09 at 0609, Until Sun02/09/21 at 2000, Pain, moderate pain (4- 6), Initial dose 5mg. If pain control not adequate in 60 minutes, give additional 5mg, Routine documented in this encounter Active and Recently Administered Medications Times are shown in EST. Scheduled Medication Order 02/07/2021 02/08/2021 02/09/2021 acetaminophen (Tylenol) tablet 1,000 mg (COMPLETED) 0643 (Given - Provider: Christianne Srinivasan RN) 1,000 mg, Oral, ONCE, 1 dose, On 04/01 at 0630, Maximum dose of acetaminophen is 4000 mg from all sources in 24 hours. When ordered for pain, acetaminophen should be given even when other ordered pain medications are indicated. , Routine ceFAZolin (Ancef) 1 g in dextrose 5% 50 mL infusion (COMPLETED) 0750 (Given - Provider: Nory Sanchez CRNA)1145 (Given - Provider: Nory Sanchez CRNA) 1 g, Intravenous, ONCE, 1 dose, On Sun04/12/20 at 0630, Administer over 30 Minutes, Indication for (Active or Suspected): Bone/Joint tranexamic acid (Cyklokapron) 1,634 mg i n sodium chloride 0.9% 116.34 mL infusion (COMPLETED) 0750 (New Bag - Pro vider: Nory Sanchez CRNA - Comment: administered over 30 minutes) 1,634 mg (rounded from 1,633.5 mg = 15 m g/kg/dose ? 108.9 kg), Intravenous, ONCE, 1 dose, On Sun02/09/21 at 0630, Administer over 30 Minutes, Day of Surgery (Day of Procedure) PRN Medication Order 02/07/2021 02/08/2021 02/09/2021 fentaNYL (PF) (50 mcg/mL) injection 50 mcg (CANCELED) 1352 (Given - Provider: Karlene Chapa RN)1357 (Given - Provider: Karlene Chapa RN - Comment: Pt was given second dose of fentanyl 50mcg(late entry)) 50 mcg, Intravenous, EVERY 5 MIN PRN, St arting on Sun02/09/21 at 0643, Until Sun02/09/21 at 1759, Pain, or prior to injection of local anesthetic., Hold for respiratory rate less than 8 breaths per nicki te. (maximum dose 200 mcg), Day of Surgery (Day of Procedure), R outine HYDROmorphone (Dilaudid) (0.2 mg/1 mL) injection syringe 0.2 mg (CANCELED) 1306 (Given - Provider: Anastasiia Win, YUMIKO) 0.2 mg, Intravenous, EVERY 10 MIN PRN, S tarting on Sun02/09/21 at 1300, Until Sun02/09/21 at 1759, Pain, For Mild to Moderate Pain (1-5 out of 10), Hold for respiratory rate less than 10 per minute. Max imum dose 3 mg over one hour including a dministrations in the OR. If multiple pain medications are ordered, start with HYDROmorphone or morphine and use fentaNYL for breakthrough pain, PACU Recovery, Routine ketorolac (Toradol) (15 mg/mL) injection 15 mg 15 mg, Intravenous, EVERY 8 HOURS PRN, S tarting on Sun02/09/21 at 0609, Until Sun02/09/21 at 2000, Pain, Routine methylene blue (Provayblue) (5 mg/mL) injection (CANCELED) 0831 (Given - Provider: Wally Rouse MD - Comment: Mixed into bone cement.) ONCE PRN, Starting on Sun02/09/21 at 083 1, Until Sun02/09/21 at 2000, Intra- Operative (Intra-Procedure), Routine midazolam (pf) (Versed) (1 mg/mL) injection 1 mg (CANCELED) 0706 (Given - Provider: Adonay Perez MD)07 (Given - Provider: Adonay Perez MD)0735 (Given - Provider: Nory Sanchez CRNA)0739 (Given - Provider: Nory Sanchez CRNA) 1 mg, Intravenous, EVERY 5 MIN PRN, Star ting on Sun02/09/21 at 0643, Until Sun02/09/21 at 1759, Other, Sedation or prior to injection of local anesthetic, Hold for delirium/agitation. (Maximum dose 5 mg)., Day of Surgery (Day of Procedure), Routine oxyCODONE (Roxicodone) tablet 10-15 mg(Linked Group 1) 10-15 mg, Oral, EVERY 4 HOURS PRN, Start ing on Sun02/09/21 at 0609, Until Sun02/09/21 at 2000, Pain, severe pain (7-10), Initial dose 10mg. If pain control not adequate in 60 minutes, give additional 5mg, Routine oxyCODONE (Roxicodone) tablet 5-10 mg(Linked Group 1) 5-10 mg, Oral, EVERY 4 HOURS PRN, Starti ng on Sun02/09/21 at 0609, Until Sun02/09/21 at 1999, Pain, moderate pain (4-6), Initial dose 5mg. If pain control not adequate in 60 minutes, give additional 5mg, Routine vancomycin (Vancocin) injection (CANCELED) 0832 (Given - Provider: Wally Rouse MD - Comment: Mixed into bone cement.)1101 (Given - Provider: Wally Rouse MD) ONCE PRN, Starting on Sun02/09/21 at 083 2, Until Sun02/09/21 at 1999, Intra- Operative (Intra-Procedure), Routine Linked Groups Order Group 1: oxyCODONE (Roxicodone) tablet 5-10 mgJump to med 5-10 mg, Oral, EVERY 4 HOURS PRN, Starti ng on Sun02/09/21 at 0609, Until Sun02/09/21 at 1999, Pain, moderate pain (4-6)
Initial dose 5mg. If pain control not adequate in 60 minutes, give additional 5mg
Routine Or oxyCODONE (Roxicodone) tablet 10-15 mgJump to med 10-15 mg, Oral, EVERY 4 HOURS PRN, Start ing on Sun02/09/21 at 0609, Until Sun02/09/21 at 1999, Pain, severe pain (7-10)
Initial dose 10mg. If pain control not adequate in 60 minutes, give additional 5mg
Routine documented in this encounter Care Teams Flight Hostess Relationship Specialty Start Date End Date Ekaterina Omer MD PCP - General General Internal Medicine 08/23/18 [address] [place] [address] documented as of this encounter
--- OUTSIDE RECORDS SUMMARY | 2021-10-13 15:50 | XMS_ITS | Encounter Summary ---
:1950 Author Organization [facility] [place] [address] Care Team Providers Name Role Phone Ekaterina Omer MD Primary Care Provider Encounter Details Date Type Department Care Team Description 02/08/2021 Telephone Orthopaedics at [facility] [place] [address] Social History Tobacco Use Types Packs/Day Years Used Date Former Smoker Cigarettes 1 10 Quit: 05/10/18 73 Smokeless Tobacco: Never Used Alcohol Use Standard Drinks/Week Comments No 0 (1 standard drink = 0.6 oz pure alcoho l) Sex Assigned at Date Recorded Female 01/18/2021 7:28 AM EST documented as of this encounter Miscellaneous Notes Telephone Encounter - Saida Gonzales - 02/08/2021 2:10 PM EST Kiya called back as she missed getting to the phone when Cata was calling. Patient states her is no longer going to [facility] and someone will be with her at all times. If any questions, contact her. PH: [phone] Telephone Encounter - Payton Rawls MSW - 02/08/2021 12:16 PM EST OFFICE OF CARE MANAGEMENT CCM Follow up call to Ms. Cummings in anticipation of her 02/09 elbow replacement. She had noted her would need to go to [facility] after surgery and team was concerned for her care. Ms. Cummings reports that her grandson will stay while her makes an overnight trip to [facility]. She is planning for wy home [facility] if [facility] suggested. She has no further questions or concerns but knows to call. Wished her well. Update to inpatient team. documented in this encounter Plan of Treatment Upcoming Encounters Date Type Specialty Care Team Description 11/24/2021 Office Visit Neurology Gregg Lacy MD [place], [place] [address] (Wo rk) 04/06/2022 Appointment Radiology 04/06/2022 Office Visit Orthopaedics Wally Rouse MD [facility] ORTHOPAEDIC SURG [place], [place] [address] (Wo rk) documented as of this encounter Visit Diagnoses Not on filedocumented in this encounter Care Teams Airplane Mechanic Apprentice Relationship Specialty Start Date End Date Ekaterina Omer MD PCP - General General Internal Medicine 08/23/18 [address] [place] [address] documented as of this encounter
--- OUTSIDE RECORDS SUMMARY | 2021-10-13 15:50 | XMS_ITS | Encounter Summary ---
:1950 Author Organization [facility] [place] [address] Care Team Providers Name Role Phone Ekaterina Omer MD Primary Care Provider Encounter Details Date Type Department Care Team Description 12/20/2020 Orders Only Orthopaedics at [facility] Wally Rouse, Closed bicondylar [facility] fracture of distal Drive [facility] end of left humerus, [place] [address] [address] initial encounter [phone] ORTHOPAEDIC SURGERY [place] [id number] Social History Tobacco Use Types Packs/Day Years [...] 11/24/2021 Office Visit Neurology Gregg Lacy MD [place], [place] [address] (Wo rk) 04/06/2022 Appointment Radiology 04/06/2022 Office Visit Orthopaedics Wally Rouse MD [facility] ORTHOPAEDIC SURG [place], [place] [address] (Wo rk) documented as of this encounter Results XR [...] who have questions please contact the health child caregiver that requested your imaging first. ? Electronically signed by: Justice Sullivan MD , [facility] ([phone]), at 02/21/2021 2:24 PM Narrative 02/21/2021 2:24 PM EST EXAMINATION: XR [...] ho have questions please contact the health child caregiver that requested your imaging first. Electronically signed by: Justice Sullivan MD , [facility] ([phone]), at 02/21/2021 2:24 PM Wally Rouse MD IMG DX ORDERABLES documented in this encounter Visit Diagnoses Diagnosis Closed bicondylar fracture of distal end of left humerus, initial encounter Closed bicondylar fracture of distal end of left humerus, initial encounter documented in this encounter Care Teams Private Client Advisor Relationship Specialty Start Date End Date Ekaterina Omer MD PCP - General General Internal Medicine 08/23/18 [address] [place] [address] documented as of this encounter
--- OUTSIDE RECORDS SUMMARY | 2021-10-13 15:50 | XMS_ITS | Encounter Summary ---
:1950 Author Organization [place] [address] Care Team Providers Name Role Phone Ekaterina Omer MD Primary Care Provider Reason for Referral Consultation (Routine) - Authorized Specialty Diagnoses / Procedures Referred By Contact Refer red To Contact Thoracic Surgery Diagnoses Multiple pulmonary nodules Cough Multiple pulm nodules Zahra Raman APRN Allison, Hilary C, [address], [place] [address] [place], [place] [address] Phone: Fax: Referral ID Status Reason Start Date Expiration Visits Visits Date Requested Authorized [id number] Authorized Consult, 05/27/2021 05/27/2022 6 6 Test & Treat Encounter Details Date Type Department Care Team Description 05/27/2021 Transcribe Orders eDH Incoming Zahra Raman; Referrals S, LUPE Multiple pulmonary nodules [phone] [place], [place] [id number] Social History Tobacco Use Types Packs/Day Years [...] 11/24/2021 Office Visit Neurology Gregg Lacy MD [place], [place] [address] (Wo rk) 04/06/2022 Appointment Radiology 04/06/2022 Office Visit Orthopaedics Wally Rouse MD [facility] ORTHOPAEDIC SURG [place], [place] [address] (Wo rk) Scheduled Referrals Name Type Priority Associated Order Schedule Diagnoses Referral to Outpatient Referral Routine Cough Ordered: Pulmonology Multiple pulmonary 2 nodules documented as of this encounter Visit Diagnoses Diagnosis Cough Multiple pulmonary nodules Other nonspecific abnormal finding of gilmer ng field documented in this encounter Care Teams Pulpwood Buyer Relationship Specialty Start Date End Date Ekaterina Omer MD PCP - General General Internal Medicine 08/23/18 [address] [place] [address] documented as of this encounter
--- OUTSIDE RECORDS SUMMARY | 2021-10-13 15:50 | XMS_ITS | Encounter Summary ---
:1950 Author Organization [facility] Address [address] [place] [address] Care Team Providers Name Role Phone Ekaterina Omer MD Primary Care Provider Reason for Visit Reason Comments Pre-op Exam 02-09-21 Left Total elbow Encounter Details Date Type Department Care Team Description 01/24/2021 Office Visit Orthopaedics at [facility] Wally Rouse, Closed bicondylar [facility] fracture of distal Drive [address] end of left humerus, [place] [address] initial encounter [phone] ORTHOPAEDIC SURGERY [place], [place] [address] Social History Tobacco Use Types [...] Sign Reading Time Taken Comments Blood Pressure 132/85 01/24/2021 9:59 AM EST Pulse 59 01/24/2021 9:59 AM EST Temperature - - Respiratory Rate - - Oxygen Saturation - - Inhaled Oxygen Concentration - - Weight 108.9 kg (240 lb) 01/24/2021 9:59 AM EST Height 160 cm (5' 3) 01/24/2021 9:59 AM EST Body Mass Index 42.51 01/24/2021 9:59 AM EST documented in this encounter Progress Notes Donna Quintanilla W - 01/24/2021 9:45 AM EST Upper Extremity Pre-Operative Patient Education Procedure: Left Total Elbow Post-op Imaging order placed: No H&P: To be completed PCP Consent: The surgical consent was reviewed with Kiya by Dr. Rouse. Procedure, risks, and benefits were reviewed. Questions were solicited and answered. The Kiya understands these and the surgical consent was signed. Personal or Family Hx of blood clot?: no History of problems with anesthetics: no Problems with pain medication in the past?: no If yes, drug and reaction: n/a DME/Physical Therapy: Kiya was given a DME order for sling. This can be obtained from any DME provider or medical equipment company. She will be given a referral for physical therapy and a post operative protocol for their procedure after surgery.. Kiya understands the expectations around post operative rehabilitation and that thisis an important component of their recovery. Kiya was instructed that PT start time will be TBD after surgery. Discussed making sure they take care of child care development specialist, sleeping situations, and having help with ADL's before day of surgery. Dicussed time frame for sling or post-op splint. Kiya was given a bottle of Hibiclens to be used in the shower the night before and the morning of their procedure. Showering instructions were reviewed. Medications and Pain Management: Reviewed with Kiya to discontinue use of NSAIDS and Aspirin 7 days before surgery. Chronic anti-coagulation: yes, per PCP or Janitorial Assistant Anticoagulation plan post op: Per PCP/Janitorial Assistant at appointment on Sunday01/28/21* Opioid PDMP 01/24/2021 09/15/2020 08/02/2020 08/02/2020 [place] PDMP Query Date 01/24/2021 09/21/2020 12/01/2020 11/24/2020 [place] PDMP Query Date 01/24/2021 09/21/2020 12/01/2020 11/24/2020 [place] PDMP Query Date 01/24/2021 09/21/2020 12/01/2020 11/24/2020 Kiya Cummings is being prescribed a prescription opioid for the treatment of acute post-operative pain related to Orthopedic surgery. Kiya Cummings has been advised to take the smallest dose possible to control their pain and as their pain improves to take smaller doses and increase the time between doses. In addition to this medication, non-opioid medications have been prescribed for adjunct treatment oftheir pain. Non-pharmacological treatment such as ice, elevation and activity modification have beenrecommended as appropriate. The Acute Opioid Therapy Informed Consent form has been completed and sent to medical records for scanning to chart. Written material given Elbow surgery?? Questions solicited and answered. Kiya knows to call with any additional questions or concerns. Patient advised to read discharge instructions for specific recommendations about medication use, dressing care, sling use ect. after surgery. Will the patient require VNA services post-op: Yes; the patient/caregivers were provided with a listof VNA's which serve their preferred geographic location and they [facility]. Selection: [place]: No preference EDEN Garcia, LAT, ATC, OTC Department of Orthopaedics Wally Rouse MD - 01/24/2021 9:45 AM EST Orthopaedic Surgery Pre-Operative Visit Procedure: Left total elbow arthroplasty Interval History: Kiya Cummings is a 71 y.o. female who presents for follow-up regarding her upcomingprocedure as above. She reports that she continues to have significant dysfunction of the left elbow. Her pain is reasonable but she finds the stiffness and lack of range of motion to be quite troubling. I discussed with her the elective nature the procedure and she is still adamant that she cannot stand her current level of function. Her recent cultures remain negative at this point. Objective: GENERAL: Well appearing, appropriate MUSCULOSKELETAL: Left Elbow Examination No visible abnormality. Range of motion from 40 to 80 degrees. Supination 20, pronation 80. Palpable crepitus with passive range of motion. Sensation intact light touch in the median, radial, ulnar nerve distributions. 5-5 strength with finger flexion, extension, spread, fourth and fifth finger FDP. Warm well perfused. Assessment/Plan: 71 y.o. female who presents for the above procedure. We had a long discussion aboutthe elective nature of this procedure, and she is still very interested in moving forward the. We did discuss that her main goal would be pain relief, with a secondary goal being improved range of motion. Risks of the procedure were discussed extensively, and I indicated her that research suggest a roughly 80% survival rate at 10-year follow-up with historic implants. We discussed that revision procedures have less certain outcomes and can be more difficult depending on the indication. Other risks of surgery including pain, bleeding, infection, prosthetic joint infection requiring explant, nerve injury, damage to surrounding structures, fracture, cardiopulmonary complications, and even amongothers were all discussed. After considering the risks and benefits of surgery, the patient would like to move forward the procedure. Wally Rouse MD, MS Shoulder and Elbow Surgeon Department of Orthopaedic Surgery [facility] documented in this encounter Plan of Treatment Upcoming Encounters Date Type Specialty Care Team Description 11/24/2021 Office Visit Neurology Gregg Lacy MD [place], [place] [address] (Wo rk) 04/06/2022 Appointment Radiology 04/06/2022 Office Visit Orthopaedics Wally Rouse MD [facility] ORTHOPAEDIC SURG [place], [place] [address] (Wo rk) documented as of this encounter Visit Diagnoses Diagnosis Closed bicondylar fracture of distal end of left humerus, initial encounter documented in this encounter Care Teams Distributing Clerk Relationship Specialty Start Date End Date Ekaterina Omer MD PCP - General General Internal Medicine 08/23/18 [address] [place] [address] documented as of this encounter
--- OUTSIDE RECORDS SUMMARY | 2021-10-13 15:50 | XMS_ITS | Encounter Summary ---
:1950 Author Organization [facility] [place] [address] Care Team Providers Name Role Phone Ekaterina Omer MD Primary Care Provider Reason for Visit Reason Onset Date Comments Post-op Problem 02/10/2021 Encounter Details Date Type Department Care Team Description 02/10/2021 Telephone Orth[place]ed[place] [facility] [place] [address] [phone] ORTHOPAEDIC SURG [place], [place] [address] (Wo rk) Social History Tobacco Use Types Packs/Day Years Used Date Former Smoker Cigarettes 1 10 Quit: 05/10/18 73 Smokeless Tobacco: Never Used Alcohol Use Standard Drinks/Week Comments No 0 (1 standard drink = 0.6 oz pure alcoho l) Sex Assigned at Date Recorded Female 01/18/2021 7:28 AM EST documented as of this encounter Miscellaneous Notes Telephone Encounter - Belen Diego RN - 02/10/2021 4:19 PM EST Spoke with patient, she states she is doing much better. She will call back if she has any concerns or worsening pain Telephone Encounter - Belen Diego RN - 02/10/2021 12:53 PM EST Reviewed with Dr Rick, we would not recommend increasing oxycodone at this time, she can take 400-600mg of advil along with 1000mg of tylenol now. She should not take any further NSAID without discussing with pcp/loading rack supervisor who manages xarelto. She can increase tylenol to every 6 hours today and tomorrow and then cut back to every 8 hours. Again stressed strict elevation and ice. She should continue with her oxycodone as ordered 5-10mg every 4 hours as needed today. I will call later today tocheck in Telephone Encounter - Belen Diego RN - 02/10/2021 12:18 PM EST Spoke with patient and Nabil regarding patients increased pain levels after total elbow arthroplasty yesterday with Dr Rouse. She had no narcotic pain medication after surgery until 6 am thismorning as she had no pain until she woke up. She had 10mg of oxycodone along with 1000mg lf tylenolat 6am, she had another 10mg of oxycodone at 11am. Her pain seemed to plateau after her initial doseof tylenol an oxycodone but she feels that her second dose of oxycodone was ineffective. She is on xarelto and states she does not usually take NSAIDs but doesn't think she was told not to take them.discharge instructions state she should avoid NSAIDs. She has not been elevating much and feels her hand is swollen and her cast is tight. Nabil states that her color comes back immediately after pressing on nail. Kiya states she cannot tolerate ice as it puts to much pressure on elbow. Advised strict elevation and she can ice above and below injury. We will ask provider if any med changes are appropri ate and call back with their advice Telephone Encounter - Latosha Rodriguez - 02/10/2021 11:25 AM EST Where is your pain? Left elbow Did you have an injury?no Date of Injury: n/a Have you had surgery on this body part?yes Date of Surgery:02/09/21 Who was your surgeon?Dr. Rouse What information would you like for me to pass on to the provider? Pt is in severe pain and crying for 2 hours non stop, reports. On a scale of 1 to 10, where would you rate your pain: 10 Best number to reach you [phone] I will cristy this as urgent, the nurses continuously monitor their messages and will call as soon as they are able. documented in this encounter Plan of Treatment Upcoming Encounters Date Type Specialty Care Team Description 11/24/2021 Office Visit Neurology Gregg Lacy MD [place], [place] [address] (Wo rk) 04/06/2022 Appointment Radiology 04/06/2022 Office Visit Orthopaedics Wally Rouse MD [facility] ORTHOPAEDIC SURG [place], [place] [address] (Wo rk) documented as of this encounter Visit Diagnoses Not on filedocumented in this encounter Care Teams Air Control Electronics Operator Relationship Specialty Start Date End Date Ekaterina Omer MD PCP - General General Internal Medicine 08/23/18 [address] [place] [address] documented as of this encounter
--- OUTSIDE RECORDS SUMMARY | 2021-10-13 15:50 | XMS_ITS | Encounter Summary ---
:1950 Author Organization [facility] [place] [address] Care Team Providers Name Role Phone Ekaterina Omer MD Primary Care Provider Encounter Details Date Type Department Care Team Description 03/28/2021 Orders Only [place] [facility], Elbow stiffness, left; [facility] [place] [address] [address] [address] [phone] ORTHOPAEDIC SURGERY [place] [id number] Social History Tobacco Use Types Packs/Day Years [...] 11/24/2021 Office Visit Neurology Gregg Lacy MD [place], [place] [address] (Wo rk) 04/06/2022 Appointment Radiology 04/06/2022 Office Visit Orthopaedics Wally Rouse MD [facility] SUR[facility] [place] [address] (Wo rk) documented as of this encounter Results XR Elbow 3 Views Left (GENERIC) (04/04/2021 8:17 AM EST) Anatomical Region Laterality Modality Elbow Left Digital Radiography Specimen (Source) Anatomical Location Collection Method / Collectio n Time Received Time / Laterality Volume Impressions 04/04/2021 9:10 AM EST Uncomplicated total elbow arthroplasty. Thank you for letting us participate in the care of this patient. ??If you are a health care provider and have any questi ons regarding this report, please contact the number below. ??For patients who have questions please contact the health child care specialist that requested your imaging first. ? Narrative 04/04/2021 9:10 AM EST EXAMINATION: XR ELBOW 3 VIEWS LEFT (GENERIC) CLINICAL HISTORY: Left elbow replacement TECHNIQUE: 3 views LEFT elbow COMPARISON: 02/21/2021 FINDINGS: There is a total elbow arthroplasty. No new fracture. Truncated radial head is unchanged. No lucency. Alignment is inta ct. Procedure Note Justice Sullivan MD - 04/04/2021Formatting o f this note might be different from the original. EXAMINATION: XR ELBOW 3 VIEWS LEFT (GENE VIPIN) CLINICAL HISTORY: Left elbow replacement TECHNIQUE: 3 views LEFT elbow COMPARISON: 02/21/2021 FINDINGS: There is a total elbow arthroplasty. No new fracture. Truncated radial head is unchanged. No lucency. Alignment is inta ct. IMPRESSION Uncomplicated total elbow arthroplasty. Thank you for letting us participate in the care of this patient. If you are a health care provider and have any questi ons regarding this report, please contact the number below. For patients w ho have questions please contact the health child care specialist that requested your imaging first. Electronically signed by: Justice Sullivan MD , Radiology [place] ([phone]), at 04/04/2021 9:10 AM Wally Rouse MD IMG DX ORDERABLES documented in this encounter Visit Diagnoses Diagnosis Elbow stiffness, left Elbow arthritis Unspecified arthropathy, upper arm Elbow stiffness, left Elbow arthritis Unspecified arthropathy, upper arm documented in this encounter Care Teams Mushroom Spawn Maker Relationship Specialty Start Date End Date Ekaterina Omer MD PCP - General General Internal Medicine 08/23/18 [address] [place] [address] documented as of this encounter
--- OUTSIDE RECORDS SUMMARY | 2021-10-13 15:50 | XMS_ITS | Encounter Summary ---
:1950 Author Organization [facility] Address [address] [place] [address] Care Team Providers Name Role Phone Ekaterina Omer MD Primary Care Provider Encounter Details Date Type Department Care Team Description 12/17/2020 Hospital Encounter [place] [place] [facility] [place]imWally Closed bicondylar [address] [facility] [address] Denia MD fracture of distal [place], [place] [address] end of left hum erus, [address] initial encounter [phone] [place] [address] Social History Tobacco Use Types Packs/Day Years [...] Sig Dispensed Refills Start Date End Date lisinopriL (Zestril) 5 10 mg daily. 0 [...] C, (VITAMIN C) 500 mg daily. Tablet oxyCODONE (Roxicodone) Take 1 tablet by mouth 5 tablet 0 0 12/02/2020 02/09/2021 5 mg Tablet every 4 hours as needed for Pain for up to 5 doses. acetaminophen (Tylenol) Take 2 tablets by 30 tablet 1 12/0109/16/2021 325 mg Tablet mouth every 4 hours as needed for Pain. senna-docusate Take 1 tablet by mouth 60 tablet 0 1 04/11/2021 (Pericolace) 8.6-50 mg daily. Tablet documented as of this encounter Plan of Treatment Upcoming Encounters Date Type Specialty Care Team Description 11/24/2021 Office Visit Neurology Gregg Lacy MD [place], [place] [address] (Wo rk) 04/06/2022 Appointment Radiology 04/06/2022 Office Visit Orthopaedics Wally Rouse MD [facility] ORTHOPAEDIC SURG [place], [place] [address] (Wo rk) Scheduled Orders Name Type Priority Associated Diagnoses Order S chedule XR Elbow 3 Views Imaging Routine Closed bicondylar 1 Occu rrences starting Left (GENERIC) fracture of distal end 10/2020 until of left humerus, initial 10/2020 encounter documented as of this encounter Procedures Procedure Name Priority Date/Time Associated Diagnosis Comme nts XR WRIST 3 VIEWS Routine 12/17/2020 10:43 AM Closed bicondylar Results for this LEFT EDT fracture of distal procedure are in end of left humerus, the res ults initial encounter section. XR ELBOW 3 VIEWS Routine 12/17/2020 10:43 AM Closed bicondylar Results for this LEFT (GENERIC) EDT fracture of distal procedu re are in end of left humerus, the res ults initial encounter section. documented in this encounter Results XR Wrist 3 Views Left (12/17/2020 10:43 AM EDT) Anatomical Region Laterality Modality Left Digital Radiography Specimen (Source) Anatomical Location Collection Method / Collectio n Time Received Time / Laterality Volume Impressions 12/17/2020 10:48 AM EDT No fracture. Thank you for letting us participate in the care of this patient. ??If you are a health care provider and have any questi ons regarding this report, please contact the number below. ??For patients who have questions please contact the health care team assistant that requested your imaging first. ? Narrative 12/17/2020 10:48 AM EDT EXAMINATION: XR WRIST 3 VIEWS LEFT CLINICAL HISTORY: s/p humerus fracture, DRUJ injury? TECHNIQUE: 3 views LEFT wrist COMPARISON: None FINDINGS: No fracture. Normal alignment at the wri st. There is osteophytes, joint space narrowing at the first CMC joint. There is a cyst at the scaphoid waist. Procedure Note Justice Sullivan MD - 12/17/2020Formatting o f this note might be different from the original. EXAMINATION: XR WRIST 3 VIEWS LEFT CLINICAL HISTORY: s/p humerus fracture, DRUJ injury? TECHNIQUE: 3 views LEFT wrist COMPARISON: None FINDINGS: No fracture. Normal alignment at the wri st. There is osteophytes, joint space narrowing at the first CMC joint. There is a cyst at the scaphoid waist. IMPRESSION No fracture. Thank you for letting us participate in the care of this patient. If you are a health care provider and have any questi ons regarding this report, please contact the number below. For patients w ho have questions please contact the health care team assistant that requested your imaging first. Wally Rouse MD IMG DX ORDERABLES XR Elbow 3 Views Left (GENERIC) (12/17/2020 10:43 AM EDT) Anatomical Region Laterality Modality Elbow Left Digital Radiography Specimen (Source) Anatomical Location Collection Method / Collectio n Time Received Time / Laterality Volume Impressions 12/17/2020 10:50 AM EDT Unchanged appearance and alignment of the elbow. Thank you for letting us participate in the care of this patient. ??If you are a health care provider and have any questi ons regarding this report, please contact the number below. ??For patients who have questions please contact the health care team assistant that requested your imaging first. ? Narrative 12/17/2020 10:50 AM EDT EXAMINATION: XR ELBOW 3 VIEWS LEFT (GENERIC) CLINICAL HISTORY: interval change?LEFT i ntraarticular distal humerus fx ORIF TECHNIQUE: 3 views LEFT elbow COMPARISON: 11/08/2020 FINDINGS: Multiple pins are present at the distal humerus which are unchanged alignment. Unchanged fragmentation of the radial he ad. Unchanged joint effusion. Unchanged ulnohumeral and radiocapitellar joint sp bushra narrowing Procedure Note Justice Sullivan MD - 12/17/2020Formatting o f this note might be different from the original. EXAMINATION: XR ELBOW 3 VIEWS LEFT (GENE VIPIN) CLINICAL HISTORY: interval change?LEFT i ntraarticular distal humerus fx ORIF TECHNIQUE: 3 views LEFT elbow COMPARISON: 11/08/2020 FINDINGS: Multiple pins are present at the distal humerus which are unchanged alignment. Unchanged fragmentation of the radial he ad. Unchanged joint effusion. Unchanged ulnohumeral and radiocapitellar joint sp bushra narrowing IMPRESSION Unchanged appearance and alignment of th e elbow. Thank you for letting us participate in the care of this patient. If you are a health care provider and have any questi ons regarding this report, please contact the number below. For patients w ho have questions please contact the health care team assistant that requested your imaging first. Wally Rouse MD IMG DX ORDERABLES documented in this encounter Visit Diagnoses Diagnosis Closed bicondylar fracture of distal end of left humerus, initial encounter documented in this encounter Care Teams Hand Ii Tube Bender Relationship Specialty Start Date End Date Ekaterina Omer MD PCP - General General Internal Medicine 08/23/18 [address] [place] [address] documented as of this encounter
--- OUTSIDE RECORDS SUMMARY | 2021-10-13 15:50 | XMS_ITS | Encounter Summary ---
:1950 Author Organization [facility] Address [address] [facility] [place] [address] Care Team Providers Name Role Phone Ekaterina Omer MD Primary Care Provider Encounter Details Date Type Department Care Team Description 12/31/2020 Hospital Encounter XRay at [facility] Nasim Wally Closed bicondylar [address] [facility] [address] Denia MD fracture of distal [place], [place] [facility] end of left hum erus, [id number] initial encounter [phone] [place] [address] Social History Tobacco Use Types Packs/Day Years Used Date Former Smoker Cigarettes 1 10 Quit: 05/10/18 73 Smokeless Tobacco: Never Used Alcohol Use Standard Drinks/Week Comments No 0 (1 standard drink = 0.6 oz pure alcoho l) Sex Assigned at Date Recorded Female 01/18/2021 7:28 AM EST documented as of this encounter Discharge Instructions Patient InstructionsMichelle Andre - 12/31/2020 8:12 AM EDT Post Injection Patient Instructions You received an injection by DILLON ADLER APRN in the diagnostic section of radiology. Procedure: LEFT SHOULDER ASPIRATION In the days following the injection: ??? Low intensity movement and exercise of the affected joint. ??? Avoid movements that worsen pain. During the first 48 hours following the injection you may experience mild discomfort at the injection site. If you experience pain or discomfort in the affected area, do the following: ??? Apply cold compress to the affected area. ??? If allowed by your physician, take an anti-inflammatory medication such as ibuprofen (example: Advil), Acetaminophen 9example: Tylenol) or Aspirin. IMPORTANT The risk of infection exists whenever the skin is punctured. The risk can be minimized by keeping the injection site clean. However, be aware of the following signs of an infection: ??? Redness and swelling at the injection site. ??? Increased pain. ??? Fever and/or chills. ??? Decreased range of motion in the joint near the injection site. If you experience any of the signs of infection listed above, telephone the diagnostic section of radiology at [phone]. documented in this encounter Medications at Time [...] every 4 hours as needed for Pain. oxyCODONE (Roxicodone) Take 1 tablet by 5 tablet 0 021 02/09/2021 5 mg Tablet mouth every 4 hours as needed for Pain [...] 11/24/2021 Office Visit Neurology Gregg Lacy MD [place], [place] [address] (Wo rk) 04/06/2022 Appointment Radiology 04/06/2022 Office Visit Orthopaedics Wally Rouse MD [facility] ORTHOPAEDIC SURG [place], [place] [address] (Wo rk) documented as of this encounter Procedures Procedure Name Priority Date/Time Associated Comments Diagnosis HC JOINT CULTURE Routine 12/31/2020 8:46 AM Closed bicondylar EDT fracture of distal end of left humerus, initial encounter HC FUNGUS CULTURE, Routine 12/31/2020 8:46 AM Closed bicondyla r MISC SOURCE EDT fracture of distal end of left humerus, initial encounter JOINT CULTURE Routine 12/31/2020 8:46 AM Closed bicondylar Res ults for this EDT fracture of distal procedure are in end of left the results humerus, initial section. encounter ANAEROBIC CULTURE Routine 12/31/2020 8:46 AM Closed bicondylar Results for this EDT fracture of distal procedure are in end of left the results humerus, initial section. encounter HC MYCOBACTERIA Routine 12/31/2020 8:46 AM Closed bicondylar R esults for this CULTURE EDT fracture of distal procedure are in end of left the results humerus, initial section. encounter FUNGAL STAIN Routine 12/31/2020 8:46 AM Closed bicondylar Resu lts for this EDT fracture of distal procedure are in end of left the results humerus, initial section. encounter FUNGUS CULTURE Routine 12/31/2020 8:46 AM Closed bicondylar Re sults for this EDT fracture of distal procedure are in end of left the results humerus, initial section. encounter XR JOINT ASPIRATION - Routine 12/31/2020 8:12 AM Closed bicond ylar Results for this MEDIUM JOINT LEFT EDT fracture of distal proc edure are in end of left the results humerus, initial section. encounter documented in this encounter Results Anaerobic Culture (12/31/2020 8:46 AM EDT) [facility] Method Time Signature Anaerobic No anaerobic [facility] organisms [facility] LABORATORY Specimen Anatomical Collection Method Collection Time Receive d Time (Source) Location / / Volume Laterality Joint LEFT ELBOW REGION 12/31/2020 8:46 AM 12/11 9:31 STRUCTURE / EDT AM EDT Unknown Resulting Agency Comment Spec In Lab Wally Rouse MD MICROBIOLOGY - GENERAL ORDER DEAN Performing Organization Address City/[facility]/[place] [address] Joint Culture (12/31/2020 8:46 AM EDT) Component Value Ref Test Analysis Performed At [facility] Range Method Time Signature Joint Culture No growth at 14 TALON days. [facility] LABORATORY Gram Stain No Neutrophils seen. TALON No microorganisms seen. [facility] LABORATORY Specimen Anatomical Collection Method Collection Time Receive d Time (Source) Location / / Volume Laterality Joint LEFT ELBOW REGION 12/31/2020 8:46 AM 12/11 9:31 STRUCTURE / EDT AM EDT Unknown Resulting Agency Comment Spec In Lab Wally Rouse MD MICROBIOLOGY - GENERAL ORDER DEAN Performing Organization Address City/State/[place] [address] Calcofluor White Stain (12/31/2020 8:46 AM EDT) [facility] Method Time Signature Calcofluor Calcofluor TALON Stain White ALIREZA Preparation: [facility] LABORATORY Specimen Anatomical Collection Method Collection Time Receive d Time (Source) Location / / Volume Laterality Joint 12/31/2020 8:46 AM 9:31 EDT AM EDT Resulting Agency Comment Spec In Lab Wally Rouse MD MICROBIOLOGY - GENERAL ORDER DEAN Performing Organization Address City/[facility]/ZIP Code Phon e Number [place] ALIRE[address] Fungus culture (12/31/2020 8:46 AM EDT) [facility] Method Time Signature Fungus No Fungus TALON BAILEYALIREZA Culture isolated [facility] LABORATORY Specimen Anatomical Collection Method Collection Time Receive d Time (Source) Location / / Volume Laterality Joint 12/31/2020 8:46 AM 9:31 EDT AM EDT Resulting Agency Comment Spec In Lab Wally Rouse MD MICROBIOLOGY - GENERAL ORDER DEAN Performing Organization Address City/[facility]/[place] [address] (ABNORMAL) AFB culture Elbow Joint Fluid (12/31/2020 8:46 AM EDT) [facility] Method Time Signature Acid Fast Note: This is a corrected report TALON BAILEYALIREZA Bacilli Culture in progress. [facility] ([facility] LAB[facility] Acid Fast No Acid Fast TALON BAILEYALIREZA Stain Bacilli seen [facility] ([facility] LAB[facility] Specimen Anatomical Collection Method Collection Time Receive d Time (Source) Location / / Volume Laterality Elbow Joint 12/31/2020 8:46 AM 9:33 Fluid EDT AM EDT Resulting Agency Comment Spec In Lab Wally Rouse MD MICROBIOLOGY - GENERAL ORDER DEAN Performing Organization Address City/[facility]/ZIP Code Phon e Number [address] XR Fluoro Guided Joint Aspiration Medium Left (12/31/2020 8:12 AM EDT) Anatomical Region Laterality Modality Left Radio Fluoroscopy Specimen (Source) Anatomical Location Collection Method / Collectio n Time Received Time / Laterality Volume Impressions 12/31/2020 9:47 AM EDT Uneventful left elbow joint aspiration. Resident/Fellow: None Attending: None Procedure performed by NATASHA Menon RN Thank you for letting us participate in the care of this patient. ??If you are a health care provider and have any questi ons regarding this report, please contact the number below. ??For patients who have questions please contact the health palliative care coordinator that requested your imaging first. ? Narrative 12/31/2020 9:47 AM EDT HISTORY: Pain, R/O infection of left elbow joint. LEFT ELBOW JOINT ASPIRATION UNDER FLUORO SCOPY TECHNIQUE: After an extensive conversation with the patient regarding risks and benefits, oral and written consent were obtained.? A pre- procedural time-out was performed, including review of the patie nt's relevant electronic medical record and allergies, as per [facility] protocol. Dr. Rose consulted for needle placement. A pre- procedural time-out was performed as per [facility] protocol. The patient was placed supine on the flu oroscopic table. ??The skin overlying the lateral aspect of the left elbow was pre pped and draped in the usual aseptic manner. 1% Lidocaine was used to achieve local anesthesia. Under fluoroscopic guidance, 18 gauge 3.5 inch spinal needl e was advanced into the joint space. Small amount of air was injected to docu ment needle placement. ??Sparse fluid returned. All needles removed at end of procedure. FINDINGS: 1. ??Small amount of injected air in the left elbow joint space. 2. ??< 0.5 ml of serosanguinous fluid as pirated, sent for culture, sensitivity, and gram stain. Specimen inadequate for cell count. MEDICATIONS: Lidocaine 1% - <5 ml, for subcutaneous a nesthesia Fluoroscopy time: 0.15 minutes COMPLICATIONS: None immediate. POST-PROCEDURE CARE: Instructions on mon itor of infection, management of post procedure pain were reviewed with momo kong Procedure Note Dillon Adler APRN - 12/31/2020Forma tting of this note might be different from the original. HISTORY: Pain, R/O infection of left elb ow joint. LEFT ELBOW JOINT ASPIRATION UNDER FLUORO SCOPY TECHNIQUE: After an extensive conversation with the patient regarding risks and benefits, oral and written consent were obtained.? A pre- procedural time-out was performed, including review of the patie nt's relevant electronic medical record and allergies, as per [facility] protocol. Dr. Rose consulted for needle placement. A pre- procedural time-out was performed as per [facility] protocol. The patient was placed supine on the flu oroscopic table. The skin overlying the lateral aspect of the left elbow was pre pped and draped in the usual aseptic manner. 1% Lidocaine was used to achieve local anesthesia. Under fluoroscopic guidance, 18 gauge 3.5 inch spinal needl e was advanced into the joint space. Small amount of air was injected to docu ment needle placement. Sparse fluid returned. All needles removed at end of procedure. FINDINGS: 1. Small amount of injected air in the l eft elbow joint space. 2. < 0.5 ml of serosanguinous fluid aspi rated, sent for culture, sensitivity, and gram stain. Specimen inadequate for cell count. MEDICATIONS: Lidocaine 1% - <5 ml, for subcutaneous a nesthesia Fluoroscopy time: 0.15 minutes COMPLICATIONS: None immediate. POST-PROCEDURE CARE: Instructions on mon itor of infection, management of post procedure pain were reviewed with momo kong IMPRESSION Uneventful left elbow joint aspiration. Resident/Fellow: None Attending: None Procedure performed by NATASHA Menon RN Thank you for letting us participate in the care of this patient. If you are a health care provider and have any questi ons regarding this report, please contact the number below. For patients w ho have questions please contact the health palliative care coordinator that requested your imaging first. Wally Rouse MD IMG FLUORO ORDERABLES documented in this encounter Visit Diagnoses Diagnosis Closed bicondylar fracture of distal end of left humerus, initial encounter documented in this encounter Administered Medications Inactive Administered Medications - up to 3 most recent administrations Medication Order MAR Action Action Date Dose Rate Site lidocaine (Xylocaine) 1% (10 mg/mL) Given 12/31/2020 9:00 AM EDT 40 mg injection 40 mg 40 mg (4 mL), Intra-articular, ONCE, 1 dose, On Sun12/31/20 at 0900, Routine documented in this encounter Care Teams [employer] Culturist Relationship Specialty Start Date End Date Ekaterina Omer MD PCP - General General Internal Medicine 08/23/18 [address] [place] [address] documented as of this encounter
--- OUTSIDE RECORDS SUMMARY | 2021-10-13 15:50 | XMS_ITS | Encounter Summary ---
:1950 Author Organization [facility] [place] [address] Care Team Providers Name Role Phone Ekaterina Omer MD Primary Care Provider Encounter Details Date Type Department Care Team Description 02/09/2021 Anesthesia Event Main Operating Room Adonay Husain MD [facility] [place] [address] [facility] Mary Ellen Gan MD [facility] [place] [address] [place] [address] Anesthesia Record Procedure Summary Procedure Name Responsible Anesthesia Start Anesthesia Stop Anesthesiologist Time Time TOTAL ELBOW Adonay Correia MD 02/09/21 0735 02/09/21 1246 REPLACEMENT (WRVU 22) (Left Elbow) Events Date Time Event Comment 02/09/2021 0645 0735 Start 0738 AN Verify 0739 An Start Data 0743 An Induction 0747 An Intubation 0748 Anesthesia Ready 0815 An Tourn Inflated 250 mmHg LUE 0816 Procedure Start 0900 Break/Relief In I assumed care f or Break Relief before which we: 1. Identified th e patient 2. Identified the responsible prov ider(s) 3. Reviewed the pertinent medical history 4. Discussed the surgical plan and course 5. Review ed intra-op anesthesia management and issues durin anesthesia 6. Set expectations for the relief ( and/or post-procedure) period 7. Allowed opportun ity for questions and acknowledgement of understanding ADONAY CORREIA MD 0920 Break/Relief Out 0932 An Tourn Deflated 1038 An Tourn Inflated 250 mmHg LUE 1114 An Tourn Deflated 1215 Procedure Stop 1223 Extubation/LMA Out Patient spont aneously ventilating; adequate tidal volumes ( >500 m L); regular respiratory rate & rhythm; minute v entilation > 7L/min; neuromuscular function intact as evidence by sustained tetanus; following comman ds. Oropharynx suctioned. Extubated withou t issue to 6L/min O2 via face mask. VSS. 1225 Break/Relief In I assumed care f or Break Relief before which we: 1. Identified th e patient 2. Identified the responsible prov ider(s) 3. Reviewed the pertinent medical history 4. Discussed the surgical plan and course 5. Review ed intra-op anesthesia management and issues [facility] 6. Set expectations for the relief ( and/or post-procedure) period 7. Allowed opportun ity for questions and acknowledgement of understanding ADONAY CORREIA MD 1237 an stop data 1246 Stop Name Total IV Lidocaine 50 mg Propofol 200 mg Rocuronium 50 mg ePHEDrine 20 mg Ondansetron 4 mg Neostigmine 3 mg Glycopyrrolate 0.4 mg midazolam (pf) (Versed) (1 mg/mL) injection 1 mg 4 mg HYDROmorphone 2 mg/mL 2 mg Succinylcholine 100 mg tranexamic acid (Cyklokapron) 1,634 mg in sodium chlor siddharth 0.9% 116.34 mL 1,634 mg infusion ceFAZolin (Ancef) 1 g in dextrose 5% 50 mL infusion 4 g Propofol INF 919.12 mg BUpivacaine 0.5% 30 mL Lactated Ringers 1,400 mL Agents Name O2 Air N2O Sevoflurane (et) O2 Auxiliary Flowmeter 2 Blood No blood administrations on file. Lines, Drains, and Airways Type Details Placement Removal Incision 09/21/20; Left; elbow 09/21/20 0000 by Tangela Zafar, YUMIKO Incision 11/24/20; 0825; Left, 11/24/20 0825 by lower; back Jeannie Whitlock RN Incision 11/24/20; 0826; lower, 11/24/20 0826 by midline; back Jeannie Whitlock RN Incision 12/01/20; 1001; back; 12/01/20 1001 by Silva Monson RN Incision 02/09/21; 0816; Left; 02/09/21 0816 by elbow; vertical Vickie Gallagher, YUMIKO PIV 02/09/21; 0638; 02/09/21 0638 by Srinivasan, 08/16/21 1027 by metacarpal vein (top of YUMIKO Benítez Andrea hand), right; ysjw-vap-wgeqpf catheter system; 20 gauge, 1 in length; distraction, intradermal injection, tolerated well; 08/16/21 (LDA Cleanup utility RA#[id number]); 1027 (LDA Cleanup utility RA#[id number]) ETT Mask Ventilation: Not 02/09/21 0747 by 02/09/21 1223 by Attempted (0); ETT Type: Laura, Nory S, Shiva jonathan, Nory S, Cuffed, Oral; ETT Size: 7 PSYCHIATRIC NURSE PSYCHIATRIC NURSE mm; Mac Blade: 3; Notes: Asleep, Pre-O2, Stylette; Attempts: 1; Laryngoscopy Grade: 1; ETT Placement Verified By: Auscultation, Capnometry, Visual; Secured at Teeth: 21 cm; Inserted by: Nory Sanchez, PSYCHIATRIC NURSE Urethral Catheter 02/09/21; 0755; Surgery 02/09/21 0755 by 02/09 1224 by longer than 2 hours, Vickie Gallagher, Dyan Ortega, Physician order; RN RN indwelling double lumen catheter; latex; 14; inserted at this facility; 1; 5; 10; none; drainage bag to dependent drainage; 02/09/21; 1224 documented in this encounter Social History Tobacco Use Types Packs/Day Years Used Date Former Smoker Cigarettes 1 10 Quit: 05/10/18 73 Smokeless Tobacco: Never Used Alcohol Use Standard Drinks/Week Comments No 0 (1 standard drink = 0.6 oz pure alcoho l) Sex Assigned at Date Recorded Female 01/18/2021 7:28 AM EST documented as of this encounter OR Notes Anesthesia Postprocedure Evaluation - Adonay Correia MD - 02/09/2021 5:12 PM EST Department of Anesthesiology Post-procedure Note Patient: Kiya Cummings Procedure Summary Date: 02/09/21 Room / Location: [facility] [address] [place] [address] MAIN OR Anesthesia Start: 734 Anesthesia Stop: 124 Procedure: TOTAL ELBOW REPLACEMENT (WRVU 22) (Left Elbow) Diagnosis: (Left total elbow arthroplasty) Surgeons: Wally Rouse MD Responsible Provider: Adonay Correia MD Anesthesia Type: general ASA Status: 3 All Anesthesia Providers: Anesthesiologist: Adonay Correia MD PSYCHIATRIC NURSE: Nory Sanchez CRNA Vitals Value Taken Time BP 138/71 02/09/21 1545 Temp Pulse 71 02/09/21 1550 Resp 14 02/09/21 1550 SpO2 95 % 02/09/21 1711 Pain Level 0 02/09/21 1430 Vitals shown include unvalidated device data. Patient Location: PACU/[facility] Level of Consciousness: Awake and Alert Pain Management: Satisfactory Analgesia PONV: None Cardiovascular Status: Hemodynamically Stable Respiratory Status: Stable Respiratory Status Postoperative Fluid Status: Intravascular EUvolemia Possible Anesthetic Complications: NONE apparent at time of evaluation Final Primary Anesthesia Type: General (The anesthetic type performed was the same as planned.) Comments: Patient doing much better s/p rescue block. Denies additional complaints. Anesthesia Procedure Notes - Mary Ellen Gan MD - 02/09/2021 2:18 PM EST Associated Order(s): Anesthesia Block Anesthesia Block Date/Time: 02/09/2021 2:10 PM Performed by: Mary Ellen Gan MD Authorized by: Adonay Correia MD Start Time: 02/09/2021 2:00 PM End Time: 02/09/2021 2:10 PM Patient Location: Other - add comment below same day recovery The patient was greeted; the risks and benefits of the procedure were reviewed. Indication: Post-op Pain Control Post-op pain management at the request of surgeon. Block Type: Supraclavicular nerve block Laterality: Left Position: Sitting Prep: Chlorhexidine, patient draped and mask, cap, sterile gloves, hand hygeine Skin Anesthetic: Skin Anesthetic: Lidocaine 1% dose: 5 Block Technique: SonoPlex 22 5 cm Ultrasound Guided: YES and in-plane Ultrasound Image Saved Ultrasound guidance was used to identify the targeted neuronal structure. Ultrasound was also used to identify needle position and to identify tissue (bone, muscle, and blood vessels) to prevent inadvertent intraneural or intravascular needle placement and injection. The spread of local anesthetic was confirmed with live ultrasound imaging.?? Single-Shot: Single-shot Local Anesthetic Volume(s) Injected for Nerve Block: BUpivacaine 0.5%, 30 mL Nerve Sensory/MotorTest: Action Taken: Performed in recovery after orthopedic surgery evaluation. Staff: Fellow:: Mary Ellen Gan MD Attending Physician:: Adonay Correia MD Anesthesia Preprocedure Evaluation - Adonay Correia MD - 02/08/2021 2:32 PM EST Images from the original note were not included. Pre-Anesthesia Evaluation for: Kiya Cummings a 71 y.o. female. Procedure(s): TOTAL ELBOW REPLACEMENT (VU 22) Patient Active Problem List Diagnosis ??? Closed fracture of left distal humerus s/p ORIF Gitajn 09/21/20 ??? Phlebitis after infusion ??? Mild cognitive impairment ??? Morbid obesity with BMI of 40.0-44.9, adult ??? Hypothyroidism ??? Gastroesophageal reflux ??? Pulmonary embolism ??? Depression ??? LEONARD treated with BiPAP ??? OA (osteoarthritis) ??? Diverticulosis of large intestine without perforation or abscess without bleeding ??? Irritable bowel syndrome with both constipation and diarrhea ??? Disorder of muscle, ligament, and fascia ??? Urinary and fecal incontinence ??? S/P panniculectomy ??? Rectus diastasis Past Medical History: Diagnosis Date ??? Allergy 1980 sulfur and 2012 sipro ??? Asthma 1978 Mild intermittant ??? [...] PRG FLUOROSCOPY EXAM UP TO 1 HR [facility] PROV N/A 11/24/2020 FLUOROSCOPY (WRVU 0.17) performed by William [facility] MD at [facility] OR ??? PRO COLONOSCOPY, DIAGNOSTIC N/A 12/24/2017 COLONOSCOPY, DIAGNOSTIC performed by Caleb Tineo MD at [facility] ENDOSCOPY ??? PRO ELECT ANALYSIS IMPL NEUROSTIM GEN, COMPLEX SPINAL, PERIPHERAL STIMU W/IN N/A 11/24/2020 ELEC ANALYSIS IMPL NEUROSTIM\PULSE GEN SYS-COMPLEX (WRVU 0.8) performed by William Jones MD at [facility] OR ??? PRO ELECT ANALYSIS IMPL NEUROSTIM GEN, COMPLEX SPINAL, PERIPHERAL STIMU W/IN N/A 12/01/2020 ELEC ANALYSIS IMPL NEUROSTIM\PULSE GEN SYS-COMPLEX (WRVU 0.8) performed by William Jones MD at [facility] OR ??? PRO EXCISE EXCESS SKIN TISSUE, ABDOMEN N/A 03/06/2014 ABDOMINOPLASTY performed by Marcos aVnce MD at [facility] OR ??? PRO IMPLANT GASTRIC NEUROSTIM/BODY CORPORATE MANAGER N/A 12/01/2020 INSERT OR REPLACE PERIPHERAL OR GASTRIC NEUROSTIMULATOR (WRVU 2.45) performed by iWlliam Jones MD at [facility] OR ??? PRO INCISION, IMPLANT, NEUROELEC, SACRAL NERVE N/A 11/24/2020 INCISION & IMPLANT SACRAL NEUROSTIMULATOR ELECTRODE (WRVU 12.2) performed by iWlliam Jones MD at [facility] MAIN OR ??? PRO OPEN TX HUMERAL SUPRACONDYLAR FRACTURE W/O XTN Left 09/21/2020 OPEN TREATMENT OF HUMERAL SUPRACONDYLAR OR TRANSCONDYLAR FRACTURE, INCLUDES INTERNAL FIXATION WITHOUT INTERCONDYLAR EXTENSION (WRVU 13.15) performed by Nimco Ha MD at [facility] OR ??? PRO REELBOW LAT LIGMNT W/TISS Left 09/21/2020 LATERAL COLLATERAL LIGAMENT REPAIR, ELBOW (WRVU 9.16) performed by Nimco Ha MD at [facility] OR ??? PRO REMOVAL OF HEAD OF RADIUS Left 09/21/2020 RADIAL HEAD, EXCISION (WRVU 6.42) performed by Nimco Ha MD at [facility] OR ??? PRO UNLISTED PROCEDURE, MUSCULOSKELETAL SYSTEM, GENERAL both shouloders rotater cuff ??? VASCULAR SURGERY 1990 varicose veins both legs ??? XR JOINT ASPIRATION - MEDIUM JOINT LEFT Left 12/31/2020 XR Fluoro Guided Joint Aspiration Medium Left 12/31/2020 Lashonda Lewis, PARACHUTIST/COMBATANT DIVER QU[facility]IED [facility] RAD XRAY Social History Tobacco Use ??? Smoking status: Former Smoker Packs/day: 1.00 Years: 10.00 Pack years: 10.00 Types: Cigarettes Quit date: 05/10/1972 Years since quittin.7 ??? Smokeless tobacco: Never Used Substance Use Topics ??? Alcohol use: No Social History Substance and Sexual Activity Drug Use No Allergies Allergen Reactions ??? Sulfa (Sulfonamide Antibiotics) Hives ??? Ciprofloxacin ??? Macrodantin [Nitrofurantoin Macrocrystal] ??? Penicillins ??? Pramipexole Medications: MAR and/or home medications have been reviewed. Physical Exam: Preprocedure Vitals Current as of 02/08/21 1432 No BP, pulse, respiration, SpO2, or temperature recorded. Height: Weight: BMI: IBW: Airway Assessment: Mallampati: II TM distance: >3 FB Neck ROM: full Cardiovascular Assessment: Rhythm: regular Rate: normal Pulmonary Assessment: unlabored breathing Dental Assessment: Misc Assessment: IV access: Peripheral line Last Filed Perioperative Cognitive Screening None Anesthesia Plan: ASA 3 general, with a(n) intravenous induction 71 y.o., 109kg (BMI 42) female presenting for left total elbow replacement PMH significant for asthma, hypothyroid, depression, obesity, LEONARD (bipap), DM2, hx of remote PE (previously on eliquis, last dose Sunday), HTN (lisinopril), sacral nerve stimulator (urinary urgency/incontinence) Allergies: -- Sulfa (Sulfonamide Antibiotics) -- Hives -- Ciprofloxacin -- Macrodantin (Nitrofurantoin Macrocrystal) -- Penicillins -- Pramipexole Anesthetic hx: prior GA for nerve stimulator, prior GA with supraclav nerve block for ORIF humerus Airway hx: easy mask, LMA 3 ECHO:12/29/2016 EF 70%, hyperdynamic LV, no WMA, RVSP normal, trace AR/MR/TR Lab Results Component Value Date HGB 13.1 12/19/2020 PLATELET 204 12/19/2020 INR 1.0 12/19/2020 NA 139 12/19/2020 K 4.3 12/19/2020 CREATININE 1.20 12/19/2020 No results for input(s): ABORH in the last 7068 hours. Anesthetic Plan: ASA 3 Standard ASA monitors Adequate PIV access GETA RESCUE supraclavicular block after neuro exam Region - Other Informed Consent: Anesthetic plan and risks discussed with patient and spouse. Anesthesia Screening documented in this encounter Plan of Treatment Upcoming Encounters Date Type Specialty Care Team Description 11/24/2021 Office Visit Neurology Gregg Lacy MD [place], [place] [address] (Tulio raymond) 04/06/2022 Appointment Radiology 04/06/2022 Office Visit Orthopaedics Wally Rouse MD [facility] ORTHOPAEDIC SURG [place], [place] [address] (Tulio raymond) documented as of this encounter Procedures Procedure Name Priority Date/Time Associated Diagnosis Comme nts ANESTHESIA BLOCK Routine 02/09/2021 2:10 PM Resul ts for this EST procedure are i n the results section. documented in this encounter Results Anesthesia Block (02/09/2021 2:10 PM EST) Narrative Adonay Correia MD - 02/09/2021 2:10 PM EST Mary Ellen Gan MD ? 02/09/2021 ??2:19 PM Anesthesia Block Date/Time: 02/09/2021 2:10 PM Performed by: Mary Ellen Gan MD Authorized by: Adonay Correia MD Start Time: ??02/09/2021 2:00 PM End Time: ??02/09/2021 2:10 PM Patient Location: ??Other - add comment below same day recovery The patient was greeted; the risks and b enefits of the procedure were reviewed. ?? Indication: ??Post-op Pain Control Post-op pain management at the request o f surgeon. ?? Block Type: ??Supraclavicular nerve bloc k Laterality: ??Left Position: ??Sitting Prep: ??Chlorhexidine, patient draped an d mask, cap, sterile gloves, hand hygeine Skin Anesthetic: ??Skin Anesthetic: ??Lidocaine 1% ??dose: ??5 Block Technique: ?? SonoPlex ?? 22 ?? 5 cm ??Ultrasound Guided: ??YES and in-plane ??Ultrasound Image Saved ?Ultrasound guidance was used to ident jim the targeted neuronal structure. Ultrasound was also used to i dentify needle position and to identify tissue (bone, muscle, and blood vessels) to prevent inadvertent intraneural or intravascular needle plac ement and injection. The spread of local anesthetic was confirmed with live ultrasound imaging.?Single-Shot: ??Single-shot Local Anesthetic Volume(s) Injected for Nerve Block: ?? BUpivacaine 0.5%, 30 mL Nerve Sensory/MotorTest: ?? Action Taken: ??Performed in recover y after orthopedic surgery evaluation. Staff: ??Fellow:: ??Mary Ellen Gan MD ??Attending Physician:: ??Adonay Correia MD Adonay Correia MD CYLINDER PRESS OPERATOR [facility] documented in this encounter Visit Diagnoses Not on filedocumented in this encounter Administered Medications Inactive Administered Medications - up to 3 most recent administrations Medication Order MAR Action Action Date Dose Rate Site BUpivacaine (pf) (Marcaine) (5 Given 02/09/2021 2:10 PM EST 30 m Ls mg/mL) 0.5% injection Perineural, Starting on Sun02/09/21 at 1410, Until Sun02/09/21 at 1410, Anesthesia Intra-op, Routine ceFAZolin (Ancef) 1 g in dextrose 5% 50 mL Given 02/09/2021 11:4 5 AM EST 2 g infusion 1 g, Intravenous, ONCE, 1 dose, On Sun02/09/21 at 0630, Administer over 30 Minutes, Indication for (Active or Suspected): Bone/Joint Given 02/09/2021 7:50 AM EST 2 g ePHEDrine sulfate (5 mg/mL) multi-dose Given 02/09/2021 9:40 AM EST 5 mg injection Intravenous, PRN, Starting on Sun02/09/21 at 0840, Until Sun02/09/21 at 1710, Anesthesia Intra-op, Routine Given 02/09/2021 9:37 AM EST 5 mg Given 02/09/2021 8:40 AM EST 10 mg glycopyrrolate (Robinul) (0.2 mg/mL) Given 02/09/2021 10:[address] 0.4 mg multi-dose injection Intravenous, PRN, Starting on Sun02/09/21 at 1049, Until Sun02/09/21 at 1710, Anesthesia Intra-op, Routine HYDROmorphone (Dilaudid) (2 mg/mL) Given 02/09/2021 11:29 AM EST 0.4 mg multi-dose injection solution Intravenous, PRN, Starting on Sun02/09/21 at 0803, Until Sun02/09/21 at 1710, Anesthesia Intra-op, Routine Given 02/09/2021 11:10 AM EST 0.4 mg Given 02/09/2021 10:49 AM EST 0.2 mg lactated ringers infusion New Bag 02/09/2021 10:15 AM EST Intravenous, CONTINUOUS PRN, Starting on Sun02/09/21 at 0638, Until Sun02/09/21 at 1710, Anesthesia Intra-op New Bag 02/09/2021 6:38 AM EST lidocaine (pf) (Xylocaine) (20 mg/mL) 2% Given 02/09/2021 7:44 A M EST 50 mg injection syringe Intravenous, PRN, Starting on Sun02/09/21 at 0744, Until Sun02/09/21 at 1710, Anesthesia Intra-op, Routine midazolam (pf) (Versed) (1 mg/mL) injection 1 Given 02/10/20 7:39 AM EST 1 mg mg 1 mg, Intravenous, EVERY 5 MIN PRN, Starting on Sun02/09/21 at 0643, Until Sun02/09/21 at 1759, Other, Sedation or prior to injection of local anesthetic, Hold for delirium/agitation. (Maximum dose 5 mg)., Day of Surgery (Day of Procedure), Routine Given 02/09/2021 7:35 AM EST 1 mg Given 02/09/2021 7:10 AM EST 1 mg neostigmine (Bloxiver) (1 mg/mL) injecti on Given 02/09/2021 10:49 AM EST 3 mg Intravenous, PRN, Starting on Sun02/09/21 at 1049, Until Sun02/09/21 at 1710, Anesthesia Intra-op, Routine ondansetron (pf) (Zofran) (2 mg/mL) inje ction Given 02/09/2021 12:03 PM EST 4 mg Intravenous, PRN, Starting on Sun02/09/21 at 1203, Until Sun02/09/21 at 1710, Anesthesia Intra-op, Routine propofoL (Diprivan) (10 Rate/Dose 02/09/2021 30 mcg/kg/min 19.602 mg/mL) infusion Change 11:00 AM EST mL/hr Intravenous, CONTINUOUS PRN, Starting on Sun02/09/21 at 0829, Until Sun02/09/21 at 1710, Anesthesia Intra-op, Routine Rate/Dose Change 02/09/2021 9:19 AM EST 50 mcg/kg/min 32.67 mL/hr New Bag 02/09/2021 8:29 AM EST 30 mcg/kg/min 19.602 mL/hr propofoL (Diprivan) 10 mg/mL bolus injection Given 7:46 AM EST 50 mg (Anesthesia) Intravenous, PRN, Starting on Sun02/09/21 at 0745, Until Sun02/09/21 at 1710, Anesthesia Intra-op Given 02/09/2021 7:44 AM EST 150 mg rocuronium (Zemuron) (10 mg/mL) multi-dose Given 02/09/2021 7:56 AM EST 45 mg injection Intravenous, PRN, Starting on Sun02/09/21 at 0745, Until Sun02/09/21 at 1710, Anesthesia Intra-op, Routine Given 02/09/2021 7:45 AM EST 5 mg succinylcholine (Anectine;Quelicin) (20 Given 02/09/2021 7:46 AM EST 100 mg mg/mL) injection Intravenous, PRN, Starting on Sun02/09/21 at 0746, Until Sun02/09/21 at 1710, Anesthesia Intra-op, Routine tranexamic acid (Cyklokapron) 1,634 mg in New Bag 2020 7:50 AM EST 1,634 mg sodium chloride 0.9% 116.34 mL infusion 1,634 mg (rounded from 1,633.5 mg = 15 mg/kg/dose ? 108.9 kg), Intravenous, ONCE, 1 dose, On Sun02/09/21 at 0630, Administer over 30 Minutes, Day of Surgery (Day of Procedure) documented in this encounter Care Teams Filteration Operator Relationship Specialty Start Date End Date Ekaterina Omer MD PCP - General General Internal Medicine 08/23/18 [address] [place] [address] documented as of this encounter
--- OUTSIDE RECORDS SUMMARY | 2021-10-13 15:50 | XMS_ITS | Encounter Summary ---
:[address] [facility] [place] [address] Care Team Providers Name Role Phone Ekaterina Omer MD Primary Care Provider Encounter Details Date Type Department Care Team Description 02/10/2021 Telephone Anesthesiology Marlon Juan, [facility] [place] [address] [facility] [phone] ANESTHESIOLOGY D EPT [place], [place] [address] (Wo rk) Social History Tobacco Use Types Packs/Day Years Used Date Former Smoker Cigarettes 1 10 Quit: 05/10/18 73 Smokeless Tobacco: Never Used Alcohol Use Standard Drinks/Week Comments No 0 (1 standard drink = 0.6 oz pure alcoho l) Sex Assigned at Date Recorded Female 01/18/2021 7:28 AM EST documented as of this encounter Progress Notes Marlon Juan MD - 02/10/2021 1:30 PM EST REGIONAL NERVE BLOCK FOLLOW-UP I spoke to patient via telephone. Peripheral nerve block resolved appropriately. No residual weakness/numbness/decreased sensation. No sign of infection at injection site. Patient very satisfied with nerve block. If there are any questions or concerns regarding the nerve block, please do not hesitate to contact the regional anesthesia team. Marlon Juan MD Fitness Floor Attendant CA-3 documented in this encounter Plan of Treatment Upcoming Encounters Date Type Specialty Care Team Description 11/24/2021 Office Visit Neurology Gregg Lacy MD [place], [place] [address] (Wo rk) 04/06/2022 Appointment Radiology 04/06/2022 Office Visit Orthopaedics Wally Rouse MD [facility] ORTHOPAEDIC SURG [place], [place] [address] (Wo rk) documented as of this encounter Visit Diagnoses Not on filedocumented in this encounter Care Teams Brim Pouncing Machine Operator Relationship Specialty Start Date End Date Ekaterina Omer MD PCP - General General Internal Medicine 08/23/18 [address] [place] [address] documented as of this encounter
--- OUTSIDE RECORDS SUMMARY | 2021-10-13 15:50 | XMS_ITS | Encounter Summary ---
:1950 Author Organization [facility] [place] [address] Care Team Providers Name Role Phone Ekaterina Omer MD Primary Care Provider Encounter Details Date Type Department Care Team Description 02/25/2021 [place] [facility] [place] total elbow 02/09/21 [facility] Mono chino (Dr. Rouse) [place] [address] Social History Tobacco Use Types Packs/Day Years Used Date Former Smoker Cigarettes 1 10 Quit: 05/10/18 73 Smokeless Tobacco: Never Used Alcohol Use Standard Drinks/Week Comments No 0 (1 standard drink = 0.6 oz pure alcoho l) Sex Assigned at Date Recorded Female 01/18/2021 7:28 AM EST documented as of this encounter Progress Notes Angela Bui - 02/25/2021 9:00 AM EST Kiya Cummings presents to the cast room for a Splint on per . The patient's skin is intact.The patient is going into a well padded Plaster splint on the left side. The patient tolerated the procedure well. A detailed conversation regarding range of motion exercises were reviewed with patientas well as RICE, and remedies for itching. We have given the patient a Taking care of your cast pamphlet that has a written detail of all of this information along with the names of the cast techs toreach if needed. The patient is informed to call with any questions or concerns. documented in this encounter Plan of Treatment Upcoming Encounters Date Type Specialty Care Team Description 11/24/2021 Office Visit Neurology Gregg Lacy MD [place], [place] [address] (Wo rk) 04/06/2022 Appointment Radiology 04/06/2022 Office Visit Orthopaedics Wally Rouse MD [facility] ORTHOPAEDIC SURG [place], [place] [address] (Wo rk) documented as of this encounter Visit Diagnoses Diagnosis S/p L total elbow 02/09/21 (Dr. Rouse) documented in this encounter Care Teams Interior Decorator Relationship Specialty Start Date End Date Ekaterina Omer MD PCP - General General Internal Medicine 08/23/18 [address] [place] [address] documented as of this encounter
--- OUTSIDE RECORDS SUMMARY | 2021-10-13 15:50 | XMS_ITS | Encounter Summary ---
:1950 Author Organization [facility] [place] [address] Care Team Providers Name Role Phone Ekaterina Omer MD Primary Care Provider Reason for Visit Reason Onset Date Comments Questions 12/21/2020 Encounter Details Date Type Department Care Team Description 12/21/2020 Telephone [place] [facility] [place] [address] Social History Tobacco Use Types Packs/Day Years Used Date Former Smoker Cigarettes 1 10 Quit: 05/10/18 73 Smokeless Tobacco: Never Used Alcohol Use Standard Drinks/Week Comments No 0 (1 standard drink = 0.6 oz pure alcoho l) Sex Assigned at Date Recorded Female 01/18/2021 7:28 AM EST documented as of this encounter Miscellaneous Notes Telephone Encounter - Saida Gonzales - 12/21/2020 11:05 AM EDT Call Center Call Note Provider: VILMA DOI/ DOS: N/A Procedure: ELBOW ASPIRATION AND TOTAL ELBOW REPLACEMENT Reason for call: Patient has scheduled an elbow aspiration on 12/31/20. She is wondering how soon after aspiration she can have the surgery for elbow replacement. Chart reviewed to answer questions: Yes Team message being sent to: Upper Extremity Does patient have My eDH: Yes; has MyDH and is agrees to portal message response Response needed: yes. Patient was informed that they will be contacted by a member of the team within 48 hours Use MyDH or call. P: [phone] documented in this encounter Plan of Treatment Upcoming Encounters Date Type Specialty Care Team Description 11/24/2021 Office Visit Neurology Gregg Lacy MD [place], [place] [address] (Wo rk) 04/06/2022 Appointment Radiology 04/06/2022 Office Visit Orthopaedics Wally Rouse MD [facility] ORTH[facility] SUR[facility] [place], [place] [address] (Wo rk) documented as of this encounter Visit Diagnoses Not on filedocumented in this encounter Care Teams Assembly Machine Feeder Relationship Specialty Start Date End Date Ekaterina Omer MD PCP - General General Internal Medicine 08/23/18 [address] [place] [address] documented as of this encounter
--- OUTSIDE RECORDS SUMMARY | 2021-10-13 15:50 | XMS_ITS | Encounter Summary ---
:1950 Author Organization [facility] Address [place] [address] Care Team Providers Name Role Phone Ekaterina Omer MD Primary Care Provider Reason for Visit Reason Comments Follow-up wound check Encounter Details Date Type Department Care Team Description 04/11/2021 Office Visit Orthopaedics at [facility] Wally Rouse, Presence of left [facility] MD artificial elbow [place] [address] [phone] ORTHOPAEDIC SURGERY [place], [place] [address] Social History Tobacco Use Types [...] Sign Reading Time Taken Comments Blood Pressure 137/76 04/11/2021 9:00 AM EST Pulse - - Temperature 36.9 ??C (98.4 ??F) 04/11/2021 9:00 AM EST Respiratory Rate - - Oxygen Saturation - - Inhaled Oxygen Concentration - - Weight - - Height - - Body Mass Index - - documented in this encounter Progress Notes Wally Rouse MD - 04/11/2021 9:00 AM EST Orthopaedic Surgery Clinic Note Referral: Kiya Cummings presents to see us in consultation today at the request of: No referring provider defined for this encounter. Chief Complaint: f/u left total elbow arthroplasty with new drainage History of Present Illness: Kiya Cumimngs is a 71 y.o. female who presents to clinic approximately 2 months after her left total elbow arthroplasty. She sent a picture into the clinic last week of a small new area of drainage along the incision line. It is difficult to determine the significance of this, and I requested that she come to the clinic today for further evaluation. She reports that she been massaging the scar when she released a small area of fluid. Otherwise, the elbow has continued to feel good. She does not have any other complaints or symptoms concerning for infection.. She has started use the elbow for more light activities of daily living. Objective: GENERAL: Well appearing, appropriate NEUROVASCULAR: Sensation intact to light touch in the Left upper extremity. Warm and well perfused hand. SKIN: No significant abrasions or lesions about the shoulder. MUSCULOSKELETAL: Left Shoulder Examination Incision well-healed. 2 very small scabs consistent with suture abscesses dry without surrounding erythema or drainage. Prior area of drainage completely healed. No evidence of drainage today. Active range of motion from 50 to 110 degrees. Supination 40 pronation 60. Motor, sensation, perfusion grossly intact in the hand. Warm well-perfused hand. Imaging: None today Assessment/Plan: 71 y.o. female who presents for follow-up after she noted some increased drainage from her incision line. Fortunately, this appears to be a small suture abscesses without any significant infection. Her wound appeared completely benign today. Think that she continues to heal well overall. I will keep her on a 10-day course of antibiotics to suppress any infection. I will plan to see her back in approximately 3 months for repeat clinical evaluation. X-rays will be needed at that time. Wally Rouse MD, MS Shoulder and Elbow Surgeon Department of Orthopaedic Surgery [facility] This note was created with the assistance of voice dictation software. Please excuse any related errors. documented in this encounter Plan of Treatment Upcoming Encounters Date Type Specialty Care Team Description 11/24/2021 Office Visit Neurology Gregg Lacy MD [place], [place] [address] (Wo rk) 04/06/2022 Appointment Radiology 04/06/2022 Office Visit Orthopaedics Wally Rouse MD [facility] ORTHOPAEDIC SURG [place], [place] [address] (Wo rk) documented as of this encounter Visit Diagnoses Diagnosis Presence of left artificial elbow joint Elbow joint replacement by other means documented in this encounter Care Teams Brush Polisher Relationship Specialty Start Date End Date Ekaterina Omer MD PCP - General General Internal Medicine 08/23/18 [address] [place] [address] documented as of this encounter
--- OUTSIDE RECORDS SUMMARY | 2021-10-13 15:50 | XMS_ITS | Encounter Summary ---
:1950 Author Organization [facility] [place] [address] Care Team Providers Name Role Phone Ekaterina Omer MD Primary Care Provider Encounter Details Date Type Department Care Team Description 12/02/2020 Orders Only Obstetrics and Gynecology [place] [address] [place] [address] [phone] Social History Tobacco Use Types Packs/Day Years [...] 11/24/2021 Office Visit Neurology Gregg Lacy MD [place], [place] [address] (Wo rk) 04/06/2022 Appointment Radiology 04/06/2022 Office Visit Orthopaedics Wally Rouse MD [facility] OR[facility]OP[facility] SUR[facility] [place], [place] [address] (Wo rk) documented as of this encounter Visit Diagnoses Not on filedocumented in this encounter Care Teams Shot Core Drill Operator Relationship Specialty Start Date End Date Ekaterina Omer MD PCP - General General Internal Medicine 08/23/18 [address] [place] [address] documented as of this encounter
--- OUTSIDE RECORDS SUMMARY | 2021-10-13 15:50 | XMS_ITS | Encounter Summary ---
:1950 Author Organization [facility] [place] [address] Care Team Providers Name Role Phone Ekaterina Omer MD Primary Care Provider Reason for Visit Reason Comments Fall on thinners Encounter Details Date Type Department Care Team Description 12/18/2020 - Emergency Emergency Department Dory Hennessy MD Closed head injury, initial encounter; 12/19/2020 [facility] Acciden t due to mechanical fall without injury, initial encounter; [facility] [address] Pain in left elbow [place], [place] [address] [phone] [place], [place] (Work) [phone] Social History Tobacco Use Types Packs/Day Years [...] Sign Reading Time Taken Comments Blood Pressure 114/64 12/19/2020 3:30 AM EDT Pulse - - Temperature 36.6 ??C (97.9 ??F) 12/18/2020 11:52 PM EDT Respiratory Rate 16 12/18/2020 11:52 PM EDT Oxygen Saturation 95% 12/19/2020 3:30 AM EDT Inhaled Oxygen Concentration - - Weight 108.9 kg (240 lb) 12/18/2020 11:52 PM EDT Height 157.5 cm (5' 2) 12/18/2020 11:52 PM EDT Body Mass Index 43.9 12/18/2020 11:52 PM EDT documented in this encounter Discharge Instructions Discharge InstructionsMoNasir rausch MD - 12/19/2020 3:46 AM EDT Kiya, you were evaluated following your fall earlier today. We performed X-rays of your upper and lower left arm and your elbow. There were no apparent changes on these X-rays compared to ones available in your chart, and at this time we do not see any evidence of a new fracture or movement of the screws used in your earlier surgery. We also performed a CAT scan of your head, which did not show evidence of a bleed inside your skull. We performed a CAT scan of the spine bones in your neck and did not find evidence of a fracture of these bones. We performed basic blood work including measurement of the cells in your blood and your electrolyte levels, these were normal. Please plan to follow up with your primary care provider early this coming week to discuss your fall, the results of the testing performed in the ER, and further follow-up of your elbow injury. Please continue to take Tylenol for pain control. You can take 500 mg every 4 to 6 hours, do not take more than 3000 mg per day. You can return to the ER at any time. Please return if you have worsening pain, difficulty walking, dizziness, worsening headache, vision changes, facial droop, new muscle weakness, or any other concerning symptoms. documented in this encounter Medications at Time [...] daily. Tablet documented as of this encounter ED Notes Tess George RN - 12/19/2020 3:32 AM EDT Pt requested C collar to be removed, awaiting final CT read. Nasir Hennessy MD - 12/19/2020 12:02 AM EDT ED Attending Note HPI: Kiya Cummings is a 70 y.o. female who presents to the Emergency Department w/ hx of PE on eliquis, left humerus ORIF, presenting after a fall. Fall onto left side, mechanical, head injury. Frontal head strike. Worsening pain throughout the day. Pain to distal humerus at elbow, left. Sharp pain, unable to extend elbow/shoulder 2/2 pain. 08/19. 12/19 with movement. Fall occurred around noon. Headache since fall. Bilateral frontal headache, pressure, gradually worsening. Abrasion to forehead. Left knee pain w/ abrasion. Past Medical History: Diagnosis Date ??? Allergy [...] PRG FLUOROSCOPY EXAM UP TO 1 HR [facility] OR [facility] CARE PROV N/A 11/24/2020 FLUOROSCOPY (WRVU 0.17) performed by William Jones MD at [facility] OR ??? PRO COLONOSCOPY, DIAGNOSTIC N/A 12/24/2017 COLONOSCOPY, DIAGNOSTIC performed by Caleb Tineo MD at [facility] ENDOSCOPY ??? PRO ELECT ANALYSIS IMPL NEUROSTIM GEN, COMPLEX SPINAL, PERIPHERAL STIMU W/MS N/A 11/24/2020 ELEC ANALYSIS IMPL NEUROSTIM\PULSE GEN SYS-COMPLEX (WRVU 0.8) performed by William Jones MD at [facility] OR ??? PRO ELECT ANALYSIS IMPL NEUROSTIM GEN, COMPLEX SPINAL, PERIPHERAL STIMU W/MS N/A 12/01/2020 ELEC ANALYSIS IMPL NEUROSTIM\PULSE GEN SYS-COMPLEX (WRVU 0.8) performed by William Jones MD at [facility] OR ??? PRO EXCISE EXCESS SKIN TISSUE, ABDOMEN N/A 03/06/2014 ABDOMINOPLASTY performed by Marcos Vance MD at [facility] OR ??? PRO IMPLANT GASTRIC NEUROSTIM/HIGH SPEED PRINTER OPERATOR N/A 12/01/2020 INSERT OR REPLACE PERIPHERAL OR GASTRIC NEUROSTIMULATOR (WRVU 2.45) performed by William Jones MD at [facility] OR ??? PRO INCISION, IMPLANT, NEUROELEC, SACRAL NERVE N/A 11/24/2020 INCISION & IMPLANT SACRAL NEUROSTIMULATOR ELECTRODE (WRVU 12.2) performed by William Jones MD at [facility] OR ??? PRO OPEN TX HUMERAL SUPRACONDYLAR FRACTURE W/O XTN Left 09/21/2020 OPEN TREATMENT OF HUMERAL SUPRACONDYLAR OR TRANSCONDYLAR FRACTURE, INCLUDES INTERNAL FIXATION WITHOUT INTERCONDYLAR EXTENSION (WRVU 13.15) performed by Nimco Ha MD at [facility] OR ??? PRO REELBOW LAT LIGMNT W/TISS Left 09/21/2020 LATERAL COLLATERAL LIGAMENT REPAIR, ELBOW (WRVU 9.16) performed by Nimco Ha MD at [facility] OR ??? PRO REMOVAL OF HEAD OF RADIUS Left 09/21/2020 RADIAL HEAD, EXCISION (WRVU 6.42) performed by Nimco Ha MD at [facility] OR ??? PRO UNLISTED PROCEDURE, MUSCULOSKELETAL SYSTEM, GENERAL both shouloders rotater cuff ??? VASCULAR SURGERY 1989 varicose veins both legs Allergies Allergen Reactions ??? Sulfa (Sulfonamide Antibiotics) Hives ??? Ciprofloxacin ??? Macrodantin [Nitrofurantoin Macrocrystal] ??? Penicillins ??? Pramipexole Social History Socioeconomic History ??? Marital status: Spouse name: Not on file ??? Number of children: Not on file ??? Years of education: Not on file ??? Highest education level: Not on file Occupational History ??? Not on file Tobacco Use ??? Smoking status: Former Smoker Packs/day: 1.00 Years: 10.00 Pack years: 10.00 Types: Cigarettes Quit date: 05/10/1972 Years since quittin.6 ??? Smokeless tobacco: Never Used Vaping Use ??? Vaping Use: Never used Substance and Sexual Activity ??? Alcohol use: No ??? Drug use: No ??? Sexual activity: Not on file Comment: deferred Other Topics Concern ??? Exercise: Patient reported No ??? Abuse or Threat: Physical, Sexual, Verbal No Social History Narrative Ms. Cummings lives in [place], [place] with her . 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 She has prior history of radon exposure but this is since been mitigated in her home. She has not had significant occupational exposures to dusts or fumes although there is an incidental exposures or work. She has 2 adult children. She and her frequently winter in [place]. She enjoys watching TV and biking. Social Determinants of Health Financial Resource Strain: ??? Difficulty of Paying Living Expenses: Not on file Food Insecurity: ??? Worried About Running Out of Food in the Last Year: Not on file ??? Ran Out of Food in the Last Year: Not on file Transportation Needs: ??? Lack of Transportation (Medical): Not on file ??? Lack of Transportation (Non-Medical): Not on file Physical Activity: ??? Days of Exercise per Week: Not on file ??? Minutes of Exercise per Session: Not on file Housing Stability: ??? Unable to Pay for Housing in the Last Year: Not on file ??? Number of Places Lived in the Last Year: Not on file ??? Unstable Housing in the Last Year: Not on file Discussed with: Patient Did you discuss: 1. Resuscitation goals No 2. Expectations/Fears Yes. Expectations: Symptom management and Testing/Diagnosis. Concerns/Fears: Diagnosis/illness Did your conversation change the patient's disposition? No Review of Systems Pertinent positives and negatives are included in the HPI, otherwise at least ten systems were reviewed and negative. Past Medical and Surgical Histories, Social History, Medications, Allergies were reviewed in the chart. Vitals: ED Triage Vitals BP: 147/73 [12/18/202344] Pulse: n/a Resp: 16 [12/18/202351] Temp: 36.6 ??C (97.9 ??F) [12/18/202351] Temp src: Oral [12/18/202351] SpO2: 96 % [12/18/202344] O2 Device: RA [12/18/202351] O2 Flow Rate (L/min): n/a Physical Exam General: well appearing, no acute distress, non-toxic Head: atraumatic, abrasion to forehead Eyes: EOMI, PERRL Neck: trachea midline Cardiovascular: normal rate, regular rhythm, symmetrical pulses Respiratory: normal effort, clear to auscultation bilaterally without wheezes rales or rhonchi GI: soft, non-distended, no focal tenderness, no rebound or guarding MSK: no LE edema Neuro: alert and oriented, CN intact, sensation to UE/LE symmetrical, symmetrical UE/LE strength. Psych: appropriate mood ED Course: No orders to display ED Course as of 12/25/20 0654 Sun Dec 19, [address] Head & Cervical Spine wo Contrast (Generic) IMPRESSION HEAD: 1. No acute intracranial hemorrhage, mass or mass effect. 2. Sequela of chronic small vessel ischemic disease similar appearance to prior MRI. ?? CERVICAL SPINE: 1. No acute fracture or traumatic malalignment. 0334 XR Humerus Left (Generic) IMPRESSION 1. Unchanged alignment of the elbow status post ORIF of prior fracture dislocation. 2. No new fracture. Procedures Assessment and Plan: 70 y.o. female with head injury. Xarelto, pre-existing distal humerus injury w/ mechanical fall. CT head and c-spine negative for acute fracture or traumatic injury. Xray of humerus, elbow, forearm without acute changes or fracture. Labs largely reassuring. WBC 5.3. Hgb 13.1. Plts 204. Patient's pain at baseline 5/10 after treatment in the ED. Plan for discharge home with instructions to f/u with ortho regarding chronic arm pain/injury. Patient feels comfortable with this plan. Strict return precautions discussed. Did this case involve critical care? No The visit findings, diagnosis, and care plan were discussed with the patient. The diagnosis and care plans discussions were outlined in the discharge instructions. The patient expressed understanding of the details of the visit, the return precautions and that she should return to the ER at any time for worsening symptoms, new symptoms, or other concerns. she agrees with the follow- up plan. Nasir Hennessy MD 12/25/20 0707 Rosi Arita RN - 12/18/2020 11:53 PM EDT Med Student Ralf in at the bedside assessing patient. documented in this encounter Miscellaneous Notes Med Student Progress Note - Nolan Portillo - 12/19/2020 12:18 AM EDT ED Medical Student Note Kiya Cummings is an 70 y.o. female who presents to the ED with: Chief Complaint Patient presents with ??? Fall on thinners HPI Kiya Cummings is a 70 y.o. female with a history of prior PE (on Xarelto), MCI, recent L humerus fracture s/p ORIF (in need of revision) who presents to the Emergency Department 12 hours after a mechanical fall from standing. She was descending a set of stairs and missed the last step. She landed on her L knee and L elbow and struck her forehead on the ground. She was assisted to standing by those around her. She presents with 8/10 pain in her distal humerus, elbow, and proximal forearm that is made worse with movement. She has taken Tylenol without relief. She initially was able to tolerate the pain, but it became worse over the course of the day leading to her presentation to the ER. She has limited active and passive ROM to her elbow at baseline and her exam is limited by severe pain with active or passive ROM. She also has a bilateral frontal headache that has been persistent since the fall. She denies loss of consciousness following the event. She denies seizure activity, prodrome, or postictal state. She has a small abrasion over her L knee, with minimal pain. She has had no cough, shortness of breath, chest pain, abdominal pain. No lightheadedness, dizziness, change in consciousness, or visual changes. She has no peripheral numbness or tingling. Review of Systems: Review of Systems - General ROS: negative for - fever ENT ROS: positive for - headaches. Negative for vision changes, epistaxis. Respiratory ROS: no cough, shortness of breath, or wheezing Cardiovascular ROS: no chest pain or dyspnea on exertion Gastrointestinal ROS: no abdominal pain, change in bowel habits, or black or bloody stools Genito-Urinary ROS: no dysuria, trouble voiding, or hematuria Musculoskeletal ROS: positive for - joint pain, joint stiffness, joint swelling, muscle pain and pain in arm - left, elbow - left and neck - point tenderness around C7 Neurological ROS: no TIA or stroke symptoms Physical Exam: Patient Vitals for the past 24 hrs: BP Temp Temp src Resp SpO2 Height Weight 12/18/20 2352 -- 36.6 ??C (97.9 ??F) Oral 16 -- 157.5 cm (5' 2) 108.9 kg (240 lb) 12/18/20 2345 147/73 -- -- -- 96 % -- -- General - awake, alert, NAD Head - normocephalic, abrasion over nasal septum, abrasion of forehead Eyes - EOMI, pupils 2mm, no raccoon eyes Ears - no Rizvi's sign Mouth - MMM Neck - supple, midline point tenderness around C7 Cardiovascular - RRR, no m/g/r, nonpitting edema to bilateral lower extremities Pulmonary - no cough; LCTAB, good air movement throughout Abdomen - soft, nondistended Back - no CVA tenderness Skin - no rashes Neuro - CN II-XII grossly intact, sensation intact bilateral upper and lower extremities, L shoulderstrength intact, L elbow extension and flexion 3/5, 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 Hennessy - Medications, allergies and past medical history reviewed Assessment and Plan: Assessment: 70 y.o. female on Xarelto and pre-existing distal humerus injurypresenting after a mechanical fall from standing in which she landed on her L knee, elbow, and struck her head. VS within normal limits on arrival. Patient in no acute distress. Exam notable for significant pain of L upper extr emity. Given her anticoagulation and headache, certainly concern for intracranial hemorrhage, although reassured given normal neuro exam. Given her point tenderness to C7, also concern for potential C-spine injury. Also concern for damage compounding known distal humerus injury. Will place in C collar, obtain XRs of humerus, elbow, and forearm, obtain head and neck CT. Will give 4 mg morphine for pain. Nolan Portillo 1:06 AM Elbow XR with unchanged appearance from prior, no acute fracture. Humerus with no fracture of proximal humerus. Forearm with no fracture of distal radius or ulna. WBC 5.3, Hb of 13.1, platelets 204. CTwithout evidence of intracranial hemorrhage, mass or mass effect. No acute C spine fracture or traumatic malalignment. Patient evaluated in exam room, resting in bed with C collar on. Pain at a 6/10 phu baseline of 5/10. Discussed results of findings with her and role of close follow-up with PCP for ongoing pain management. Patient agreeable to discharge with return precautions. C collar removed before discharge. Nolan Portillo 3:52 AM Associated attestation - Nasir Hennessy MD - 12/25/2020 7:07 AM EDT I saw this patient with the student. The student note is performed for the benefit of the student's education. It is not to be used for billing. While the note is reviewed with the student, this is done for the sake of the student's education. For purposes of clinical care or the medical record pleaserefer to my note. ED Triage - Sendy Causey RN - 12/18/2020 11:54 PM EDT Pt is fully vaccinated for COVID. Pt requesting flu vaccine, on thinners, no neck pain to palpation, back/shoulder pain, swelling/bruise to forehead/left knee, no LOC, took tylenol 2 hours ago, pin point pupils, no neuro issues, no n/t, on monitors, at side. HPI (Adult) Stated Reason for Visit: pt fell and struck head/left knee/left elbow, on Xarelto, pin point pupils,no LOC, neck/back pain, no tenderness to palpation, at side, plan for surgical repair/replacement of left elbow. History Obtained From: patient, family Precipitating Event(s): fall Duration (Hours): 8 documented in this encounter Plan of Treatment Upcoming Encounters Date Type Specialty Care Team Description 11/24/2021 Office Visit Neurology Gregg Lacy MD [place], [place] [address] (Wo rk) 04/06/2022 Appointment Radiology 04/06/2022 Office Visit Orthopaedics Wally Rouse MD [facility] [place] [address] (Wo rk) documented as of this encounter Procedures Procedure Name Priority Date/Time Associated Comments Diagnosis HEMOGRAM STAT 12/19/2020 1:39 AM Results f or this EDT procedure are i n the results section. DIFFERENTIAL, STAT 12/19/2020 1:39 AM Results for this AUTOMATED EDT procedure are i n the results section. HC PROTHROMBIN TIME STAT 12/19/2020 1:39 AM Re sults for this EDT procedure are i n the results section. HC CBC,PLT & AUTO STAT 12/19/2020 1:39 AM DIFF EDT BASIC METABOLIC PANEL STAT 12/19/2020 1:39 AM Results for this (NON-FASTING) EDT procedure are in the results section. CT HEAD AND CERVICAL STAT 12/19/2020 1:09 AM R esults for this SPINE WO CONTRAST EDT procedure are in the results section. XR HUMERUS LEFT STAT 12/19/2020 12:43 Results for this AM EDT procedure are i n the results section. XR FOREARM LEFT STAT 12/19/2020 12:43 Results for this AM EDT procedure are i n the results section. XR ELBOW 3 VIEWS LEFT STAT 12/19/2020 12:43 Re sults for this (GENERIC) AM EDT procedure are i n the results section. documented in this encounter Results (ABNORMAL) Differential, Automated (12/19/2020 1:39 AM EDT) [facility] gist Method Time Signature Neutrophils % 48.5 % [facility] Neutr Abs (ANC) 2.56 1.70 - [facility] 6.10 [facility] x10(3)/[facility] LABORATORY Lymphocytes % 27.5 % [facility] Lymphocytes Abs 1.4 0.9 - 3.2 [facility] x10(3)/[facility] LABORATORY Monocytes % 18.2 % [facility] Monocyte Abs 1.0 (H) 0.3 - 0.9 [facility] x10(3)/[facility] LABORATORY Eosinophils % 4.7 % [facility] Eosinophils Abs 0.2 0.0 - 0.4 [facility] x10(3)/[facility] LABORATORY Basophils % 0.9 % [facility] Basophils Abs 0.0 0.0 - 0.1 [facility] x10(3)/[facility] LABORATORY Immature Gran % 0.20 % [facility] Comment: Immature granulocytes(IG's)percentage an d absolute count will include metamyelocytes, myelocytes, and promyelo cytes. Blood smears from CBCs yielding IG's will be scanned manually for concor dance. If this scan disagrees with the automated IG or if promyelocytes are not ed, a manual differential will be performed. Shyanne Gran Abs 0.01 0.00 - 0.04 x10(3)/[facility] LABORATORY Specimen Anatomical Collection Method Collection Time Receive d Time (Source) Location / / Volume Laterality Blood 12/19/2020 1:39 AM 1:47 EDT AM EDT Resulting Agency Comment Spec In Lab Nasir Hennessy MD HEMATOLOGY ORDERABLES Performing Organization Address City/State/[place] [address] (ABNORMAL) Hemogram (12/19/2020 1:39 AM EDT) Analysis Performed At Patho logist Time Signature WBC 5.3 4.0 - 9.5 [facility] x10(3)/[facility] LABORATORY RBC 4.01 4.00 - [facility] x10(6)/[facility] LAB[facility]ATORY Hemoglobin 13.1 11.7 - [facility] 15.[facility] g/dL [facility] Hematocrit 39.2 35.7 - [facility] 45.8 % [facility] MCV 97.8 (H) 82.6 - [facility] 94.4 [facility] LABORATORY MCH 32.7 (H) 27.1 - [place] [facility] 32.0 pg [facility] MCHC 33.4 31.7 - [facility] 35.0 g/dL [facility] Platelets 204 145 - 357 [facility] x10(3)/[facility] LABORATORY RDWSD 46.3 (H) 37.0 - [facility] 46.0 [facility] LABORATORY RDWCV 12.8 11.5 - [place] [facility] 14.1 % [facility] MPV 9.7 7.6 - 12.9 [facility] LABORATORY nRBC % Auto 0.0 % [facility] nRBC Abs Auto 0.000 0.000 - [place] 0.000 [facility] x10(3)/[facility] LABORATORY Specimen Anatomical Collection Method Collection Time Receive d Time (Source) Location / / Volume Laterality Blood 12/19/2020 1:39 AM 1:47 EDT AM EDT Resulting Agency Comment Spec In Lab Nasir Hennessy MD HEMATOLOGY ORDERABLES Performing Organization Address City/[facility]/ZIP Code [place] [address] Prothrombin Time (12/19/2020 1:39 AM EDT) P athologist Signature PT 11.5 9.4 - 12.5 [facility] LABORATORY INR 1.0 [facility] Comment: An INR <2.0 indicates adequate procoagul ant activity for hemostasis in most patients without underlying bleeding dis orders, though the INR may not adequately reflect hemostatic capacity i n patients with liver disease and synthetic impairment. The recommended ta rget INR range for therapeutic anticoagulation is 2.0 ? 3.0 for most applications, though lower and higher ranges may be appropriate depending on c linical circumstances. Specimen Anatomical Collection Method Collection Time Receive d Time (Source) Location / / Volume Laterality Blood 12/19/2020 1:39 AM 1:47 EDT AM EDT Resulting Agency Comment Spec In Lab Nasir Hennessy MD HEMATOLOGY ORDERABLES Performing Organization Address City/[facility]/ZIP Code [place] [address] (ABNORMAL) Basic Metabolic Panel (non-fasting) (12/19/2020 1:39 AM EDT) P athologist Signature Glucose Lvl 109 65 - 199 [facility] mg/dL [facility] Comment: Diabetes: >=200 mg/dL plus symp toms BUN 24 (H) 8 - 18 mg/dL [facility] Creatinine 1.20 0.70 - 1.20 mg/dL [facility] Sodium 139 135 - 145 mmol/L [facility] Potassium 4.3 3.5 - 5.0 mmol/L [facility] Comment: Please note: ??Patients with WBC >100,00 0 may have falsely elevated Potassium levels. ??For accurate Potassium quantif ication in these patients send serum separator tube (gold top) for subsequent determinations. ??Contact the Clinical Chemistry Laboratory if there are any qu estions. Chloride 103 98 - 107 mmol/L [facility] CO2 24 22 - 31 mmol/L [facility] Anion Gap 12 5 - 15 mmol/L [facility] Calcium 9.3 8.5 - 10.5 mg/dL [facility] Estimated GFR 46 (L) >=60 mL/min/1.73 m?? [facility] Comment: This patient? s estimated glomerular filtration rate (eGFR) is between 46 mL/min/1.73 m2 (patients with less muscl e mass) and 53 mL/min/1.73 m2 (patients with more muscle mass) as determined by the CKD-EPI equation. Assessment of eGFR is not appropriate when creatinine concentrations are rapidly changing. For clinical decisions where creatinine clearance will affect therapy, a 24-hour urine creatinine clearance may b e advised. Assignment of CKD stage 1 - 5 for patien ts with an eGFR near the transition point between stages may be based on cli nical assessment of muscle mass and symptoms in addition to eGFR. Specimen Anatomical Collection Method Collection Time Receive d Time (Source) Location / / Volume Laterality Blood 12/19/2020 1:39 AM 1:47 EDT AM EDT Resulting Agency Comment Spec In Lab Nasir Hennessy MD CHEMISTRY ORDERABLES Performing Organization Address City/State/[place] [address] Head & Cervical Spine wo Contrast (Generic) (12/19/2020 1:09 AM EDT) Anatomical Region Laterality Modality Head Computed Tomography Specimen (Source) Anatomical Collection Method Collection Time Re ceived Time Location / / Volume Laterality 12/19/2020 1:29 AM EDT Impressions 12/19/2020 3:21 AM EDT HEAD: 1. ??No acute intracranial hemorrhage, m ass or mass effect. 2. ??Sequela of chronic small vessel isc hemic disease similar appearance to prior MRI. CERVICAL SPINE: 1. ??No acute fracture or traumatic melanie lignment. Preliminary report signed by: Davey Fraser at 12/19/2020 2:23 AM I have personally reviewed the image(s) and the resident's interpretation and agree with the findings, William ortega MD at 12/19/2020 3:21 AM Thank you for letting us participate in the care of this patient. ??If you are a health care provider and have any questi ons regarding this report, please contact the number below. ??For patients who have questions please contact the health career and transition teacher that requested your imaging first. ? Electronically signed by: William trivedi MD, [facility] ([phone]), at 12/19/2020 3:21 AM Narrative 12/19/2020 3:21 AM EDT EXAMINATION: CT HEAD AND CERVICAL SPINE WO CONTRAST (GENERIC) CLINICAL HISTORY: head injury on anticoa gulation, frontal, no AMS TECHNIQUE: CT head and cervical spine performed wit hout intravenous contrast administration. COMPARISON: Brain MRI 07/05/2018 FINDINGS: CT HEAD: No acute intracranial hemorrhage. No mas s, mass effect or extra-axial fluid collection. The ventricles are normal in size and configuration. The basal cisterns are patent. There are extensive low-attenuation lesions in the periventricular and subcortical white ma tter of both cerebral hemispheres and also in the central tobi, similar in foster earance to prior MRI, consistent with sequela of chronic small vessel ischemic disease. Lugo-white matter differentiation is preserved, no acute t erritorial infarct. The intraorbital contents are unremarkab le. Mucosal thickening in the right maxillary sinus. The remaining paranasal sinuses and mastoid air cells are clear. No calvarial fracture. 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 No extraca lvarial hematoma. CT CERVICAL SPINE: Straightening of the normal cervical sp ine lordosis. There is mild anterolisthesis of C7 on T1 secondary to facet arthropathy. No acute fracture. No prevertebral edema. There are multilevel disc, uncovertebral and facet degenerative changes. Disc height loss is moderate at C4-C5, C5-C6 and C6-C7. Posterior disc osteophyte complex at C6-C7 contributes to mild miguel tral canal narrowing. Uncinate proliferative changes contribute to mild neural foraminal narrowing. The visualized lung apices are clear. Procedure Note William Thakkar MD - 12/19/2020Fo rmatting of this note might be different from the original. EXAMINATION: CT HEAD AND CERVICAL SPINE WO CONTRAST (GENERIC) CLINICAL HISTORY: head injury on anticoa gulation, frontal, no AMS TECHNIQUE: CT head and cervical spine performed wit hout intravenous contrast administration. COMPARISON: Brain MRI 07/05/2018 FINDINGS: CT HEAD: No acute intracranial hemorrhage. No mas s, mass effect or extra-axial fluid collection. The ventricles are normal in size and configuration. The basal cisterns are patent. There are extensive low-attenuation lesions in the periventricular and subcortical white ma tter of both cerebral hemispheres and also in the central tobi, similar in foster earance to prior MRI, consistent with sequela of chronic small vessel ischemic disease. Lugo-white matter differentiation is preserved, no acute t erritorial infarct. The intraorbital contents are unremarkab le. Mucosal thickening in the right maxillary sinus. The remaining paranasal sinuses and mastoid air cells are clear. No calvarial fracture. 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 No extraca lvarial hematoma. CT CERVICAL SPINE: Straightening of the normal cervical sp ine lordosis. There is mild anterolisthesis of C7 on T1 secondary to facet arthropathy. No acute fracture. No prevertebral edema. There are multilevel disc, uncovertebral and facet degenerative changes. Disc height loss is moderate at C4-C5, C5-C6 and C6-C7. Posterior disc osteophyte complex at C6-C7 contributes to mild miguel tral canal narrowing. Uncinate proliferative changes contribute to mild neural foraminal narrowing. The visualized lung apices are clear. IMPRESSION HEAD: 1. No acute intracranial hemorrhage, mas s or mass effect. 2. Sequela of chronic small vessel ische rebeca disease similar appearance to prior MRI. CERVICAL SPINE: 1. No acute fracture or traumatic malali gnment. Preliminary report signed by: Davey Fraser at 12/19/2020 2:23 AM I have personally reviewed the image(s) and the resident's interpretation and agree with the findings, William ortega MD at 12/19/2020 3:21 AM Thank you for letting us participate in the care of this patient. If you are a health care provider and have any questi ons regarding this report, please contact the number below. For patients w ho have questions please contact the health career and transition teacher that requested your imaging first. Electronically signed by: William trivedi MD, [facility] ([phone]), at 12/19/2020 3:21 AM Nasir Hennessy MD IMG CT ORDERABLES XR Forearm Left (Generic) (12/19/2020 12:43 AM EDT) Anatomical Region Laterality Modality Forearm Left Digital Radiography Specimen (Source) Anatomical Location Collection Method / Collectio n Time Received Time / Laterality Volume Impressions 12/19/2020 1:44 AM EDT 1. ??Unchanged alignment of the elbow status post ORIF of prior fracture dislocation. 2. ??No new fracture. Thank you for letting us participate in the care of this patient. ??If you are a health care provider and have any questi ons regarding this report, please contact the number below. ??For patients who have questions please contact the health career and transition teacher that requested your imaging first. ? Electronically signed by: William trivedi MD, [facility] ([phone]), at 12/19/2020 1:44 AM Narrative 12/19/2020 1:44 AM EDT EXAMINATION: XR HUMERUS LEFT (GENERIC), XR FOREARM LEFT (GENERIC), XR ELBOW 3 VIEWS LEFT (GENERIC) CLINICAL HISTORY: trauma, left elbow, hx of fracture TECHNIQUE: 2 views of the left humerus. 4 views of the left elbow. 2 views of the left forearm. COMPARISON: Radiographs of the left elbow 12/17/2020. Radiographs of the left wrist 12/17/2020 CT of the left elbow 09/09/2020. FINDINGS: Elbow: Status post open reduction and internal fixation of the previously fractured and dislocated left elbow. Unchanged appeara nce and alignment of the fixation pins and finely threaded pins. Suture anchor projects over the lateral aspect of the distal humerus. No acute fracture. Align ment is unchanged. Unchanged proliferative bone formation along the v olar aspect of the distal humerus and resorption of the radial head. Humerus: No fracture of the proximal humerus. Nor mal alignment at the shoulder on this nondedicated view of this joint. Forearm: No fracture of the distal radius or ulna . Grossly normal alignment at the wrist on this nondedicated view of this joint. There is osteoarthropathy at the basal joint of the thumb. Procedure Note William Thakkar MD - 12/19/2020Fo rmatting of this note might be different from the original. EXAMINATION: XR HUMERUS LEFT (GENERIC), XR FOREARM LEFT (GENERIC), XR ELBOW 3 VIEWS LEFT (GENERIC) CLINICAL HISTORY: trauma, left elbow, hx of fracture TECHNIQUE: 2 views of the left humerus. 4 views of the left elbow. 2 views of the left forearm. COMPARISON: Radiographs of the left elbow 12/17/2020. Radiographs of the left wrist 12/17/2020 CT of the left elbow 09/09/2020. FINDINGS: Elbow: Status post open reduction and internal fixation of the previously fractured and dislocated left elbow. Unchanged appeara nce and alignment of the fixation pins and finely threaded pins. Suture anchor projects over the lateral aspect of the distal humerus. No acute fracture. Align ment is unchanged. Unchanged proliferative bone formation along the v olar aspect of the distal humerus and resorption of the radial head. Humerus: No fracture of the proximal humerus. Nor mal alignment at the shoulder on this nondedicated view of this joint. Forearm: No fracture of the distal radius or ulna . Grossly normal alignment at the wrist on this nondedicated view of this joint. There is osteoarthropathy at the basal joint of the thumb. IMPRESSION 1. Unchanged alignment of the elbow stat us post ORIF of prior fracture dislocation. 2. No new fracture. Thank you for letting us participate in the care of this patient. If you are a health care provider and have any questi ons regarding this report, please contact the number below. For patients w ho have questions please contact the health career and transition teacher that requested your imaging first. Electronically signed by: William trivedi MD, [facility] ([phone]), at 12/19/2020 1:44 AM Nasir Hennessy MD IMG DX ORDERABLES XR Elbow 3 Views Left (GENERIC) (12/19/2020 12:43 AM EDT) Anatomical Region Laterality Modality Elbow Left Digital Radiography Specimen (Source) Anatomical Location Collection Method / Collectio n Time Received Time / Laterality Volume Impressions 12/19/2020 1:44 AM EDT 1. ??Unchanged alignment of the elbow status post ORIF of prior fracture dislocation. 2. ??No new fracture. Thank you for letting us participate in the care of this patient. ??If you are a health care provider and have any questi ons regarding this report, please contact the number below. ??For patients who have questions please contact the health career and transition teacher that requested your imaging first. ? Electronically signed by: William trivedi MD, [facility] ([phone]), at 12/19/2020 1:44 AM Narrative 12/19/2020 1:44 AM EDT EXAMINATION: XR HUMERUS LEFT (GENERIC), XR FOREARM LEFT (GENERIC), XR ELBOW 3 VIEWS LEFT (GENERIC) CLINICAL HISTORY: trauma, left elbow, hx of fracture TECHNIQUE: 2 views of the left humerus. 4 views of the left elbow. 2 views of the left forearm. COMPARISON: Radiographs of the left elbow 12/17/2020. Radiographs of the left wrist 12/17/2020 CT of the left elbow 09/09/2020. FINDINGS: Elbow: Status post open reduction and internal fixation of the previously fractured and dislocated left elbow. Unchanged appeara nce and alignment of the fixation pins and finely threaded pins. Suture anchor projects over the lateral aspect of the distal humerus. No acute fracture. Align ment is unchanged. Unchanged proliferative bone formation along the v olar aspect of the distal humerus and resorption of the radial head. Humerus: No fracture of the proximal humerus. Nor mal alignment at the shoulder on this nondedicated view of this joint. Forearm: No fracture of the distal radius or ulna . Grossly normal alignment at the wrist on this nondedicated view of this joint. There is osteoarthropathy at the basal joint of the thumb. Procedure Note William Thakkar MD - 12/19/2020Fo rmatting of this note might be different from the original. EXAMINATION: XR HUMERUS LEFT (GENERIC), XR FOREARM LEFT (GENERIC), XR ELBOW 3 VIEWS LEFT (GENERIC) CLINICAL HISTORY: trauma, left elbow, hx of fracture TECHNIQUE: 2 views of the left humerus. 4 views of the left elbow. 2 views of the left forearm. COMPARISON: Radiographs of the left elbow 12/17/2020. Radiographs of the left wrist 12/17/2020 CT of the left elbow 09/09/2020. FINDINGS: Elbow: Status post open reduction and internal fixation of the previously fractured and dislocated left elbow. Unchanged appeara nce and alignment of the fixation pins and finely threaded pins. Suture anchor projects over the lateral aspect of the distal humerus. No acute fracture. Align ment is unchanged. Unchanged proliferative bone formation along the v olar aspect of the distal humerus and resorption of the radial head. Humerus: No fracture of the proximal humerus. Nor mal alignment at the shoulder on this nondedicated view of this joint. Forearm: No fracture of the distal radius or ulna . Grossly normal alignment at the wrist on this nondedicated view of this joint. There is osteoarthropathy at the basal joint of the thumb. IMPRESSION 1. Unchanged alignment of the elbow stat us post ORIF of prior fracture dislocation. 2. No new fracture. Thank you for letting us participate in the care of this patient. If you are a health care provider and have any questi ons regarding this report, please contact the number below. For patients w ho have questions please contact the health career and transition teacher that requested your imaging first. Electronically signed by: William trivedi MD, [facility] ([phone]), at 12/19/2020 1:44 AM Nasir Hennessy MD IMG DX ORDERABLES XR Humerus Left (Generic) (12/19/2020 12:43 AM EDT) Anatomical Region Laterality Modality Arm Left Digital Radiography Specimen (Source) Anatomical Location Collection Method / Collectio n Time Received Time / Laterality Volume Impressions 12/19/2020 1:44 AM EDT 1. ??Unchanged alignment of the elbow status post ORIF of prior fracture dislocation. 2. ??No new fracture. Thank you for letting us participate in the care of this patient. ??If you are a health care provider and have any questi ons regarding this report, please contact the number below. ??For patients who have questions please contact the health career and transition teacher that requested your imaging first. ? Electronically signed by: William trivedi MD, [facility] ([phone]), at 12/19/2020 1:44 AM Narrative 12/19/2020 1:44 AM EDT EXAMINATION: XR HUMERUS LEFT (GENERIC), XR FOREARM LEFT (GENERIC), XR ELBOW 3 VIEWS LEFT (GENERIC) CLINICAL HISTORY: trauma, left elbow, hx of fracture TECHNIQUE: 2 views of the left humerus. 4 views of the left elbow. 2 views of the left forearm. COMPARISON: Radiographs of the left elbow 12/17/2020. Radiographs of the left wrist 12/17/2020 CT of the left elbow 09/09/2020. FINDINGS: Elbow: Status post open reduction and internal fixation of the previously fractured and dislocated left elbow. Unchanged appeara nce and alignment of the fixation pins and finely threaded pins. Suture anchor projects over the lateral aspect of the distal humerus. No acute fracture. Align ment is unchanged. Unchanged proliferative bone formation along the v olar aspect of the distal humerus and resorption of the radial head. Humerus: No fracture of the proximal humerus. Nor mal alignment at the shoulder on this nondedicated view of this joint. Forearm: No fracture of the distal radius or ulna . Grossly normal alignment at the wrist on this nondedicated view of this joint. There is osteoarthropathy at the basal joint of the thumb. Procedure Note William Thakkar MD - 12/19/2020Fo rmatting of this note might be different from the original. EXAMINATION: XR HUMERUS LEFT (GENERIC), XR FOREARM LEFT (GENERIC), XR ELBOW 3 VIEWS LEFT (GENERIC) CLINICAL HISTORY: trauma, left elbow, hx of fracture TECHNIQUE: 2 views of the left humerus. 4 views of the left elbow. 2 views of the left forearm. COMPARISON: Radiographs of the left elbow 12/17/2020. Radiographs of the left wrist 12/17/2020 CT of the left elbow 09/09/2020. FINDINGS: Elbow: Status post open reduction and internal fixation of the previously fractured and dislocated left elbow. Unchanged appeara nce and alignment of the fixation pins and finely threaded pins. Suture anchor projects over the lateral aspect of the distal humerus. No acute fracture. Align ment is unchanged. Unchanged proliferative bone formation along the v olar aspect of the distal humerus and resorption of the radial head. Humerus: No fracture of the proximal humerus. Nor mal alignment at the shoulder on this nondedicated view of this joint. Forearm: No fracture of the distal radius or ulna . Grossly normal alignment at the wrist on this nondedicated view of this joint. There is osteoarthropathy at the basal joint of the thumb. IMPRESSION 1. Unchanged alignment of the elbow stat us post ORIF of prior fracture dislocation. 2. No new fracture. Thank you for letting us participate in the care of this patient. If you are a health care provider and have any questi ons regarding this report, please contact the number below. For patients w ho have questions please contact the health career and transition teacher that requested your imaging first. Nasir Hennessy MD IMG DX ORDERABLES documented in this encounter Visit Diagnoses Diagnosis Closed head injury, initial encounter Accident due to mechanical fall without injury, initial encounter Pain in left elbow Pain in joint, upper arm documented in this encounter Administered Medications Inactive Administered Medications - up to 3 most recent administrations Medication Order MAR Action Action Date Dose Rate Site influenza vaccine (65 YRS+)(PF) (FluZONE HD) vaccine syringe 0.7 mL 0.7 mL, Intramuscular, PRIOR TO DISCHARG E, 1 dose, Starting on 12/18/20 at 2358, Until 12/19/20 at 0559, Per Protocol, Routine morphine (4 mg/mL) injection 4 mg Given 12/19/2020 1:53 AM EDT 4 mg 4 mg, Intravenous, ONCE, 1 dose, On 12/19/20 at 0053, STAT documented in this encounter Active and Recently Administered Medications Times are shown in EDT. Scheduled Medication Order 12/17/2020 12/18/2020 12/19/2020 morphine (4 mg/mL) injection 4 mg (COMPLETED) 0153 (Given - Provider: Tess George, YUMIKO) 4 mg, Intravenous, ONCE, 1 dose, On 12/19/20 at 0053, STAT PRN Medication Order 12/17/2020 12/18/2020 12/19/2020 influenza vaccine (65 YRS+)(PF) (FluZONE HD) vaccine syringe 0.7 mL 0.7 mL, Intramuscular, PRIOR TO DISCHARG E, 1 dose, Starting on 12/18/20 at 2358, Until 12/19/20 at 0559, Per Protocol, Routine documented in this encounter Care Teams National Service Officer Relationship Specialty Start Date End Date Ekaterina Omer MD PCP - General General Internal Medicine 08/23/18 [address] [place], [place] [id number] documented as of this encounter
--- OUTSIDE RECORDS SUMMARY | 2021-10-13 15:50 | XMS_ITS | Encounter Summary ---
:1950 Author Organization [facility] [place] [address] Care Team Providers Name Role Phone Ekaterina Omer MD Primary Care Provider Reason for Visit Reason Comments Follow-up NXR 09/21/20 left elbow fx Consultation (Urgent) - Closed Specialty Diagnoses / Procedures Referred By Contact Refer red To Contact Orthopaedics Diagnoses severely comminuted distal humerus and left radial head fx-DOI-09/08/20 Daly Montano MD [facility] [address] [place], [place] [address] [address] [place] [address] Fax: Referral ID Status Reason Start Date Expiration Date Visits V isits Requested Authorized [id number] Closed Consult, Test 09/09/2020 09/09/2021 [facility] PCP Updated and/or Approved Encounter Details Date Type Department Care Team Description 12/17/2020 Office Visit Orthopaedics at [facility] Wally Rouse, Closed bicondylar [facility] fracture of distal [address] [facility] end of left humerus, [place] [address] initial encounter [phone] ORTHOPAEDIC SURGERY [place], [place] [address] Social History Tobacco Use Types [...] Sign Reading Time Taken Comments Blood Pressure 123/55 12/17/2020 9:24 AM EDT Pulse 58 12/17/2020 9:24 AM EDT Temperature - - Respiratory Rate - - Oxygen Saturation - - Inhaled Oxygen Concentration - - Weight 106.6 kg (235 lb) 12/17/2020 9:24 AM EDT Height 160 cm (5' 3) 12/17/2020 9:24 AM EDT Body Mass Index 41.63 12/17/2020 9:24 AM EDT documented in this encounter Progress Notes Wally Rouse MD - 12/17/2020 9:30 AM EDT Orthopaedic Surgery Clinic Note Referral: Kiya Cummings presents to see us in consultation today at the request of: Fredi Gallegos MD [facility] [address] [place] [address] Chief Complaint: Left elbow pain History of Present Illness: Kiya Cummings is a 70 y.o. right hand dominant female who presents with left elbow pain. She she had a fall down the stairs earlier this summer and sustained a comminuted distal humerus fracture with significant articular involvement. She underwent surgery here at [facility] wherethreaded K wires were used to reconstruct the articular surface. The patient reports that she healedup without incident from surgery and did not experience any symptoms of infection. Unfortunately, she has had significant ongoing pain and stiffness in the left elbow. She has very little range of motion, and cannot complete her activities of daily living. Her pain is also significant. The pain is greatest deep within the elbow joint, although she does have associated pain in the forearm and arm. Thepain is worse with activity. She has been taking Tylenol for pain relief.. Pertinent Medical History: Pulmonary embolism, on long-term anticoagulation, obstructive sleep apnea. Pertinent Surgical History: Prior elbow surgery as above. Bilateral shoulder debridements many yearsago. Pertinent Family History: None Social History: Occupation: Retired, enjoys walking. Current Smoker: no Objective: GENERAL: Well appearing, appropriate SKIN: No significant abrasions or lesions about the elbow. NEUROVASCULAR: Sensation intact to light touch in the Left upper extremity. Warm and well perfused hand. MUSCULOSKELETAL: Left Elbow Examination Visible abnormality: Yes, Well-healed lateral incision. Tenderness to palpation: Yes, Tenderness to palpation about the elbow. Palpable crepitus: Palpable crepitus with range of motion. Range of motion (Left) Extension: 50 Flexion: 80 Supination: 20 Pronation: 80 Significant pain with range of motion. Strength Testing: Extension: 4/5 With Pain Flexion: 4/5 With Pain Supination: 4/5 With Pain Pronation: 4/5 With Pain Hand Testing: Finger Flexion: 5/5 strength Finger Extension: 5/5 strength Finger Spread: 5/5 strength Sensation intact to light touch in the median, radial, ulnar nerve. Palpable radial pulse. Imaging: We independently reviewed the patient's imaging in the office today. X- ray and CT imaging was reviewed. It does demonstrate a comminuted distal humerus fracture with articular involvement. 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 Threaded K wires remain in place. Assessment/Plan: 70 y.o. female who presents with left elbow pain, stiffness, and posttraumatic arthritis after a distal humerus fracture [address] imaging demonstrates that the fracture fragments are either unhealed or partially healed in a nonanatomic alignment. She has significant associated heterotopic bone formation and joint irregularity. She has significant pain and very limited range of motion after this injury. We did discuss nonoperative versus operative management of this issue. Nonoperatively, she could continue to work with physical therapy and hope that her pain will become more tolerable over time. I think it is unlikely that she will regain much more range of motion due to the underlying bony abnormalities. At this point, due to the amount of joint damage, she would be eligible for a total elbow arthroplasty. I think this is the only surgical procedure that would provide her with meaningful relief. We did discuss the total elbow arthroplasty would be aimed at improving her pain as a main goal, with secondary improvement in her range of motion. We discussed that although there is no specific weight lifting limit, she would need to treat her elbow conservatively and avoid strenuous activities with it postoperatively. Additional risk of surgery include pain, bleeding, infection, periprosthetic joint infection requiring resection, aseptic loosening, need for revision, further surgeries in the future, heart-lung complications, anesthesia complications and even . I was clear in explaining that she should only undergo this if she finds her symptoms to be intolerable. Additionally, there is no harm in waiting extended period of time to see if she gets better. At this point, the patient is interested in likely moving forward with surgery. I will schedule her for an aspiration of the elbow to rule out underlying infection. I will see her back in the clinic after this for a further discussion of surgery and to sign consent if interested. Wally Rouse MD, MS Shoulder and Elbow Surgeon Department of Orthopaedics [facility] This note was created with the assistance of voice dictation software. Please excuse any related errors. documented in this encounter Miscellaneous Notes Addendum Note - Nahid Araujo LPN - 12/17/2020 9:30 AM EDT Addended by: NAHID ARAUJO on: 12/30/2020 12:15 PM Modules accepted: Orders Addendum Note - Nahid Araujo LPN - 12/17/2020 9:30 AM EDT Addended by: NAHID ARAUJO on: 12/31/2020 07:40 AM Modules accepted: Orders documented in this encounter Plan of Treatment Upcoming Encounters Date Type Specialty Care Team Description 11/24/2021 Office Visit Neurology Gregg Lacy MD [place], [place] [address] (Wo rk) 04/06/2022 Appointment Radiology 04/06/2022 Office Visit Orthopaedics Wally Rouse MD [facility] ORTHOPAEDIC SURG [place], [place] [address] (Wo rk) documented as of this encounter Results (ABNORMAL) AFB culture Elbow Joint Fluid (12/31/2020 8:46 AM EDT) [facility] gist Method Time Signature Acid Fast Note: This is a corrected report [place] Bacilli Culture in progress. [facility] Culture () [facility] Acid Fast No Acid Fast [place] Stain Bacilli seen [facility] () [facility] Specimen Anatomical Collection Method Collection Time Receive d Time (Source) Location / / Volume Laterality Elbow Joint 12/31/2020 8:46 AM 9:33 Fluid EDT AM EDT Resulting Agency Comment Spec In Lab Wally Rouse MD MICROBIOLOGY - GENERAL ORDER DEAN Performing Organization Address City/State/ZIP Code Phon [place] [address] XR Fluoro Guided Joint Aspiration [...] who have questions please contact the health reproductive healthcare assistant that requested your imaging first. ? [...] electronic medical record and allergies, as per [facility] protocol. Dr. Rose consulted for needle placement. A pre- procedural time-out was performed as per [facility] protocol. The patient was placed supine [...] were reviewed with momo kong Procedure Note Lashonda Lewis APRN - 12/31/2020Forma tting of this note [...] electronic medical record and allergies, as per [facility] protocol. Dr. Rose consulted for needle placement. A pre- procedural time-out was performed as per [facility] protocol. The patient was placed supine [...] ho have questions please contact the health reproductive healthcare assistant that requested your imaging first. Wally Rouse MD IMG FLUORO ORDERABLES XR Elbow 3 Views Left (GENERIC) [...] who have questions please contact the health reproductive healthcare assistant that requested your imaging first. ? [...] ho have questions please contact the health reproductive healthcare assistant that requested your imaging first. Wally Rouse MD IMG DX ORDERABLES XR Wrist 3 Views Left (12/17/2020 10:43 [...] who have questions please contact the health reproductive healthcare assistant that requested your imaging first. ? [...] a health care provider and have any [facility] regarding this report, please contact the number below. For patients w ho have questions please contact the health reproductive healthcare assistant that requested your imaging first. Wally Rouse MD IMG DX ORDERABLES documented in this encounter Visit Diagnoses Diagnosis Closed bicondylar fracture of distal end of left humerus, initial encounter Closed bicondylar fracture of distal end of left humerus, initial encounter Closed bicondylar fracture of distal end of left humerus, initial encounter documented in this encounter Care Teams Sand Caster Apprentice Relationship Specialty Start Date End Date Ekaterina Omer MD PCP - General General Internal Medicine 08/23/18 [address] [place] [address] documented as of this encounter
--- OUTSIDE RECORDS SUMMARY | 2021-10-13 15:50 | XMS_ITS | Encounter Summary ---
:1950 Author Organization [facility] [place] [address] Care Team Providers Name Role Phone Ekaterina Omer MD Primary Care Provider Reason for Visit Reason Comments Follow-up NXR Follow up per Dr Simmons [id number] Left Total replacement per scheduling instructions//NEE DS TO BE WITH HER//mild congnitive empairment Encounter Details Date Type Department Care Team Description 02/28/2021 Office Visit Orthopaedics at [facility] Wally Rouse S/p L total elbow [facility] 02/09/21 (Dr. Rouse) [place] [address] [phone] ORTHOPAEDIC SURGERY [place] [id number] Social History Tobacco Use Types Packs/Day Years [...] Sign Reading Time Taken Comments Blood Pressure 132/65 02/28/2021 1:43 PM EST Pulse - - Temperature - - Respiratory Rate - - Oxygen Saturation - - Inhaled Oxygen Concentration - - Weight 108.9 kg (240 lb) 02/28/2021 1:43 PM EST Height 160 cm (5' 2.99) 02/28/2021 1:43 PM EST Body Mass Index 42.52 02/28/2021 1:43 PM EST documented in this encounter Progress Notes Belen Diego RN - 02/28/2021 1:40 PM EST Images from the original note were not included. Query - Wally Rouse MD - 02/28/2021 1:40 PM EST Orthopaedic Surgery Post-Operative Visit Procedure: Left total elbow replacement, date of surgery 02/09/2021 Interval History: Kiya Cummings is a 71 y.o. female who presents for follow-up regarding her her lefttotal elbow replacement, date of surgery 02/09/2021. She reports that she is doing okay overall. She has been compliant with her elevation and activity restrictions. She denies fevers, chills, other issues at this point. She continues take her oral antibiotics. Objective: GENERAL: Well appearing, appropriate MUSCULOSKELETAL: Left Elbow Examination Patient is in no acute distress, sitting comfortably in the exam room with her . There is a quarter sized area of drainage on the dressing which is completely dry. There is no active drainage at the elbow at this time. Hematoma is smaller and less tense. Overall swelling at the elbow is much improved. Did not range the elbow today Motor, sensation, perfusion grossly intact in the hand. Imaging: None today Assessment/Plan: 71 y.o. female who presents for follow up from the above procedure. The patient's elbow seems to be improving overall. There is no active drainage today, and the skin drainage on her dressing was completely dry. The overall color and swelling is also improve dramatically. There is no evidence of infection. I had a long conversation with the patient about my concerns about ongoing drainage and the need for possible washout in the future if it does not resolve. I do think that things seem to be trending in the right direction. We will keep her on her oral antibiotics. I will see her back next week for repeat wound check. She has been placed back into an anterior slab splint. We will hopefully start moving her at that time to avoid as much postoperative stiffness as possible.. She voiced understanding of the plan. Wally Rouse MD, MS Shoulder and Elbow Surgeon Department of Orthopaedic Surgery [facility]. documented in this encounter Plan of Treatment Upcoming Encounters Date Type Specialty Care Team Description 11/24/2021 Office Visit Neurology Gregg Lacy MD [place], [place] [address] (Wo rk) 04/06/2022 Appointment Radiology 04/06/2022 Office Visit Orthopaedics Wally Rouse MD [facility] ORTHOPAEDIC SURG [place], [place] [address] (Wo rk) documented as of this encounter Visit Diagnoses Diagnosis S/p L total elbow 02/09/21 (Dr. Rouse) documented in this encounter Care Teams Bullard Machine Operator Relationship Specialty Start Date End Date Ekaterina Omer MD PCP - General General Internal Medicine 08/23/18 [address] [place] [address] documented as of this encounter
--- OUTSIDE RECORDS SUMMARY | 2021-10-13 15:50 | XMS_ITS | Encounter Summary ---
:1950 Author Organization [facility] [place] [address] Care Team Providers Name Role Phone Ekaterina Omer MD Primary Care Provider Encounter Details Date Type Department Care Team Description 02/09/2021 Surgery Main Operating Room Sunday Rouse MD TOTAL ELBOW REPLACEMENT [facility] ([facility] [place] [address] [place] [address] [phone] Social History Tobacco Use Types Packs/Day Years [...] Sign Reading Time Taken Comments Blood Pressure 143/58 02/09/2021 6:14 AM EST Pulse 60 02/09/2021 6:14 AM EST Temperature 36.6 ??C (97.9 ??F) 02/09/2021 6:14 AM EST Respiratory Rate 14 02/09/2021 6:14 AM EST Oxygen Saturation 97% 02/09/2021 6:14 AM EST Inhaled Oxygen Concentration - - Weight [...] 24 hours, please call the Anesthesiology Department: [phone] Shortness of breath: If you have severe shortness of breath that seems to go on and on, please go tothe nearest ER (emergency room). If a nerve block lasts longer than 48 hours, take action. If the nerve block does not wear off within 48 hours, please call the Anesthesiology Department: [phone] Protect the part of your body that [...] the Anesthesiology Department with concerns or questions: [phone] After hours: Call the hospital electron microprobe operator and ask for the anesthesiologist (merly pulido) instructional technology specialist: [phone] Updated: 01/17/21PATIENT INSTRUCTIONS POST-ANESTHESIA IMMEDIATELY FOLLOWING SURGERY: [...] to call your physician or the hospital electron microprobe operator if you have any questions, and [...] 24 hours, please call the Anesthesiology Department: [phone] Shortness of breath: If you have severe shortness of breath that seems to go on and on, please go tothe nearest ER (emergency room). If a nerve block lasts longer than 48 hours, take action. If the nerve block does not wear off within 48 hours, please call the Anesthesiology Department: [phone] Protect the part of your body that [...] the Anesthesiology Department with concerns or questions: [phone] After hours: Call the hospital electron microprobe operator and ask for the anesthesiologist (merly pulido) instructional technology specialist: [phone] Updated: 01/17/21 Patient InstructionsSNestor ballard MD - [...] bowel movement. You can also take an qnei-ohw-nbxjkep medication, Miralax if needed to combat constipation. [...] skin and wound problems. Call your doctor ([phone]) if you develop: 1. Fever greater than [...] Center 02/28/2021 9:00 AM CAST ROOM 3A [facility] [address] [place] [address] 02/28/2021 10:00 AM [facility] DX ROOM 1 Xray [facility] Rad 02/28/2021 11:30 AM Wally Rouse MD [facility] [address] [place] [address] If you have questions or concerns: Sunday [...] Operative Note Patient Name: Kiya Cummings : [id number] MR#: [id number] Case Date: 02/09/2021 Surgeon: Surgeon(s) and Role: [...] Rouse MD - 02/09/2021 8:16 AM EST [facility] Operative Note Patient Name: Kiya Cummings : [id number] MR#: [id number] Case Date: 02/09/2021 Surgeon: Surgeon(s) and Role: [...] The canals were well irrigated with an security control room officer. Cement restrictor was replaced. Medium viscosity cement [...] 11/24/2021 Office Visit Neurology Gregg Lacy MD [place], [place] [address] (Wo rk) 04/06/2022 Appointment Radiology 04/06/2022 Office Visit Orthopaedics Wally Rouse MD [facility] ORTHOPAEDIC SURG [place], [place] [address] (Wo rk) documented as of [...] who have questions please contact the health director critical care that requested your imaging first. ? Electronically signed by: Екатерина rollins MD, [facility] ([phone]), at 02/09/2021 2:15 PM Narrative 02/09/2021 2:15 [...] ho have questions please contact the health director critical care that requested your imaging first. Electronically signed by: Екатерина rollins MD, [facility] ([phone]), at 02/09/2021 2:15 PM Wally Rouse MD IMG DX ORDERABLES Anaerobic Culture (02/09/2021 9:37 AM EST) [facility] Method Time Signature Anaerobic No anaerobic [facility] Culture organisms [facility] LABORATORY Specimen Anatomical Collection Method Collection Time Receive d Time (Source) Location / / Volume Laterality Joint LEFT ELBOW REGION 02/09/2021 9:37 AM 1203/2020 9:57 STRUCTURE / EST AM EST Unknown Comment: Left elbow #3 Resulting Agency Comment Spec In Lab Wally Rouse MD MICROBIOLOGY - GENERAL ORDER DEAN Performing Organization Address City/[facility]/ZIP [facility] [place] [address] Joint Culture (02/09/2021 9:37 AM EST) Component Value Ref Test Analysis Performed At [facility] Method Time Signature Joint Culture No growth at 14 [place] days. [facility] LABORATORY Gram Stain No Neutrophils seen. [facility] No microorganisms seen. [facility] LABORATORY Specimen Anatomical Collection Method Collection Time Receive d Time (Source) Location / / Volume Laterality Joint LEFT ELBOW REGION 02/09/2021 9:37 AM 03/2020 9:57 STRUCTURE / EST AM EST Unknown Comment: Left elbow #3 Resulting Agency Comment Spec In Lab Wally Rouse MD MICROBIOLOGY - GENERAL ORDER DEAN Performing Organization Address [facility] [place] [address] Anaerobic Culture (02/09/2021 9:37 AM EST) [facility] Method Time Signature Anaerobic No anaerobic [facility] Culture organisms [facility] LABORATORY Specimen Anatomical Collection Method Collection Time Receive d Time (Source) Location / / Volume Laterality Joint LEFT ELBOW REGION 02/09/2021 9:37 AM 03/2020 9:57 STRUCTURE / EST AM EST Unknown Comment: Left elbow #2 Resulting Agency Comment Spec In Lab Wally Rouse MD MICROBIOLOGY - GENERAL ORDER DEAN Performing Organization Address City/[facility]/ZIP [facility] [place] [address] Joint Culture (02/09/2021 9:37 AM EST) Component Value Ref Test Analysis Performed At [facility] Range Method Time Signature Joint Culture No growth at 14 T[place] days. [facility] LABORATORY Gram Stain Few Neutrophils seen [place] No microorganisms seen. [facility] LABORATORY Specimen Anatomical Collection Method Collection Time Receive d Time (Source) Location / / Volume Laterality Joint LEFT ELBOW REGION 02/09/2021 9:37 AM 1203/2020 9:57 STRUCTURE / EST AM EST Unknown Comment: Left elbow #2 Resulting Agency Comment Spec In Lab Wally Rouse MD MICROBIOLOGY - GENERAL ORDER DEAN Performing Organization Address City/[facility]/ZIP [place] [address] Anaerobic Culture (02/09/2021 9:37 AM EST) [facility] [employer] Method Time Signature Anaerobic No anaerobic [place] [facility] LABORATORY Specimen Anatomical Collection Method Collection Time Receive d Time (Source) Location / / Volume Laterality Joint LEFT ELBOW REGION 02/09/2021 9:37 AM 03/2020 9:57 STRUCTURE / EST AM EST Unknown Comment: Left elbow #1 Resulting Agency Comment Spec In Lab Wally Rouse MD MICROBIOLOGY - GENERAL ORDER DEAN Performing Organization Address City/[facility]/ZIP [place] [address] Joint Culture (02/09/2021 9:37 AM EST) Component Value Ref Test Analysis Performed At [facility] [employer] Range Method Time Signature Joint Culture No growth at 14 T[place] days. [facility] LABORATORY Gram Stain No Neutrophils seen. [place] No microorganisms seen. [facility] LABORATORY Specimen Anatomical Collection Method Collection Time Receive d Time (Source) Location / / Volume Laterality Joint LEFT ELBOW REGION 02/09/2021 9:37 AM 03/2020 9:57 STRUCTURE / EST AM EST Unknown Comment: Left elbow #1 Resulting Agency Comment Spec In Lab Wally Rouse MD MICROBIOLOGY - GENERAL ORDER DEAN Performing Organization Address City/[facility]/ZIP [place] [address] SCAN DOC: IMPLANTABLE DEVICES (02/09/2021 12:00 AM EST) Narrative This result has an attachment that is no t available. Unknown MEDIA MGR SCAN EXT ORDR/RSLT documented in this encounter Visit Diagnoses Not [...] 2000, Pain, Routine methylene blue (Provayblue) (5 Given 02/09/2021 8:31 AM EST 2 mL s 19- Surgical Site mg/mL) injection ONCE PRN, Starting on Sun02/09/21 at 0831, Until Sun02/09/21 at 2000, Intra-Operative (Intra-Procedure), Routine oxyCODONE (Roxicodone) tablet 10-15 mg 10-15 mg, Oral, EVERY 4 HOURS PRN, Starting on 04/01 at 0609, Until Sun02/09/21 at 1999, Pain, severe pain (7-10 ), Initial dose 10mg. If pain control not adequate in 60 minutes, give additional 5mg, Routine oxyCODONE (Roxicodone) tablet 5-10 mg 5-10 mg, Oral, EVERY 4 HOURS PRN, Starting on 02/09 at 0609, Until Sun02/09/21 at 1999, Pain, moderate pain (4- 6), Initial dose 5mg. If pain control not adequate in 60 minutes, give additional 5mg, Routine vancomycin (Vancocin) injection Given 02/09/2021 11:01 AM EST 1 g 19- Surgical Site ONCE PRN, Starting on Sun02/09/21 at 0832, Until Sun02/09/21 at 1999, Intra-Operative (Intra-Procedure), Routine Given 02/09/2021 8:32 AM EST 2 g 19- S urgical Site documented in this encounter Active and Recently [...] mg (CANCELED) 1306 (Given - Provider: Anastasiia Win RN) 0.2 mg, Intravenous, EVERY 10 MIN PRN, [...] Sun02/09/21 at 083 1, Until Sun02/09/21 at 1999, Intra- Operative (Intra-Procedure), Routine midazolam (pf) (Versed) (1 mg/mL) injection 1 mg (CANCELED) 0706 (Given - Provider: Adonay Perez MD)0710 (Given - Provider: Adonay Perez MD)0735 (Given [...] Until Sun02/09/21 at 1999, Pain, severe pain (7-10), Initial dose 10mg. [...]
Routine documented in this encounter Care Teams Senior It Engineer Relationship Specialty Start Date End Date Ekaterina Omer MD PCP - General General Internal Medicine 08/23/18 [address] [place] [address] documented as of this encounter
--- OUTSIDE RECORDS SUMMARY | 2021-10-13 15:50 | XMS_ITS | Encounter Summary ---
:1950 Author Organization [facility] [place] [address] Care Team Providers Name Role Phone Ekaterina Omer MD Primary Care Provider Reason for Visit Reason Onset Date Comments Medication Refill 02/11/2021 Encounter Details Date Type Department Care Team Description 02/11/2021 Refill Orthopaedics at [facility] Wally Rouse, S/p L total elbow [facility] Mono chino MD 02/09/21 (Dr. Rouse) [place] [address] [facility] [phone] [facility] ORTHOPAEDIC SURG [place], [place] [address] (Wo rk) Social History Tobacco Use Types Packs/Day Years Used Date Former Smoker Cigarettes 1 10 Quit: 05/10/18 73 Smokeless Tobacco: Never Used Alcohol Use Standard Drinks/Week Comments No 0 (1 standard drink = 0.6 oz pure alcoho l) Sex Assigned at Date Recorded Female 01/18/2021 7:28 AM EST documented as of this encounter Miscellaneous Notes Telephone Encounter - Donna Cespedes, SEISMIC PLOTTER - 02/11/2021 10:15 AM EST Images from the original note were not included. Medication Refill Request Surgery/Injury/Provider: Dr. Rouse Medication being requested: Oxycodone 5mg Query: Last refill or Original Rx: Seen within 30 days (if no, than when): Yes Follow Up: 02/21/21 How is this medication being used currently: 2tabs q4 Pain level: 8 Bowel concerns: No Other pain medications used and how: Tylenol Yes 1000mg q6 Gabapentin No Naproxen No OTHER No Medication Taper Plan: Patient will be taking the least amount possible while still managing her pain. Teaching done regarding: taking nonnarcotic pain medications, taking the least amount of opioid needed for the least amount of time for adequate pain management and tapering of opioids with verbalized understanding by the patient. Requested Prescription to be sent electronically to [facility] [place], [place] (location). Prescription prepped and pended for Dr. Moseley (provider) review. The patient knows how to contact orthopaedics if any further questions or concerns occur. Telephone Encounter - Donna Cespedes CMA - 02/11/2021 10:13 AM EST From: Kiya Cummings To: Office of Nestor Rick MD Sent: 02/11/2021 9:45 AM EST Subject: Medication Renewal Request Refills have been requested for the following medications: oxyCODONE (Roxicodone) 5 mg Tablet [Nestor Rick MD] Patient Comment: please be sure DR RICK is licensed in [place], The pharmacy is closed on the weeked Pref[id number] - [facility] [address] [facility] [address] Delivery method: Pickup documented in this encounter Plan of Treatment Upcoming Encounters Date Type Specialty Care Team Description 11/24/2021 Office Visit Neurology Gregg Lacy MD [place], [place] [address] (Wo rk) 04/06/2022 Appointment Radiology 04/06/2022 Office Visit Orthopaedics Wally Rouse MD [facility] ORTHOPAEDIC SURG [place], [place] [address] (Wo rk) documented as of this encounter Visit Diagnoses Diagnosis S/p L total elbow 02/09/21 (Dr. Rouse) documented in this encounter Care Teams Antichecking Iron Worker Relationship Specialty Start Date End Date Ekaterina Omer MD PCP - General General Internal Medicine 08/23/18 [address] [place] [address] documented as of this encounter
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
--- OUTSIDE RECORDS SUMMARY | 2021-10-13 15:50 | XMS_ITS | Encounter Summary ---
:1950 Author Organization [facility] [place] [address] Care Team Providers Name Role Phone Ekaterina Omer MD Primary Care Provider Reason for Visit Reason Comments Wound Check 02-09-21 Left Total Elbow rep lacement Per scheduling instructions no ROM - please attach pictures to chart Encounter Details Date Type Department Care Team Description 02/25/2021 Office Visit Orthopaedics at [facility] Osiel Chang MD Elbow arthritis [facility] [place] [address] ORTHOPAEDIC SURG [place], [place] [address] (Wo rk) Social History Tobacco [...] Sign Reading Time Taken Comments Blood Pressure 116/50 02/25/2021 8:37 AM EST Pulse 64 02/25/2021 8:37 AM EST Temperature - - Respiratory Rate - - Oxygen Saturation - - Inhaled Oxygen Concentration - - Weight 108.9 kg (240 lb 1.3 oz) 02/25/2021 8:37 AM EST Height 160 cm (5' 2.99) 02/25/2021 8:37 AM EST Body Mass Index 42.54 02/25/2021 8:37 AM EST documented in this encounter Progress Notes Osiel Chang MD - 02/25/2021 9:00 AM EST Kiya Cummings returns today for follow up of left TEA.. At her first postop visit with Dr. Rouse a couple of days ago, she was noted to have a pinpoint area of drainage over the tip of the olecranon, alittle over a centimeter lateral to the her incision. There was no drainage or problems with the incision itself. Underlying the pinpoint area was a hematoma without tension. At that visit, she was placed back into her splint with a compression wrap and placed on prophylactic antibiotics. She presentstoday for a wound check. She does not report any increased pain, fevers, chills, sweats, or any other sign of infection. The splint was removed. There is no expressible drainage today although dabbing the spot does reveal some moisture and spotting on the gauze pad. Looking at the dressing, there is aquarter sized dried area of blood with no wet or recent blood noted. There is no evidence of purulence or infection. The hematoma is relatively soft with no tension or threatening of the incision or the skin itself. She has mild/moderate ulnar paresthesias which are unchanged. My impression is that this small pinpoint area is not increasing in size, drainage is not increasingand if anything may be decreasing. It certainly does not appear infected currently but the concern is that there could become an infection which we really want to avoid. I think at this point the risk of opening her back up is possibly more risky than careful observation of the pinpoint area of concern. The wound itself is healing well and the skin is very thin and fragile. Making a new incision so close to the prior incision would be concerning for skin bridge necrosis or healing problems which could actually increase the risk of infection. We will keep her on antibiotics and keep her immobilized in a new dressing with a compressive wrap she will return again on Sunday for another wound check. Hopefully she will continue with her current trend of improvement. This note was created with Marshal voice recognition software. Maria Teresa Gonzales RN - 02/25/2021 9:00 AM EST Images from the original note were not included. Patient arrives today for a wound check/dressing change. There appears to be no redness, heat, pus, or foul odor, and the patient denies fevers, chills, night sweats, or increased change in pain. Whilethe site is actively draining while she sits here today, the drainage on the dressing has dried. Shestates her pain is a 5-6/10 on the numeric pain scale and notes some residual numbness through her little and ring fingers. Dr. Chang was consulted today and evaluated the patient as well. Her pin site was cleansed with Chlorhexidine soap, sterile saline, and sterile gauze. Kiya states she is currently on antibiotics which will continue through to her appointment with Dr. Rouse on Wednesday 02/28. She is requesting a small script for oxycodone today, script sent for review and approval to Dr. Chang. The patient was transferred to the Cast Room in order to have a new splint placed for the weekend. . documented in this encounter Plan of Treatment Upcoming Encounters Date Type Specialty Care Team Description 11/24/2021 Office Visit Neurology Gregg Lacy MD [place], [place] [address] (Wo mandi) 04/06/2022 Appointment Radiology 04/06/2022 Office Visit Orthopaedics Wally Rouse MD [facility] ORTHOPAEDIC SURG [place], [place] [address] (Wo mandi) documented as of this encounter Visit Diagnoses Diagnosis Elbow arthritis Unspecified arthropathy, upper arm documented in this encounter Care Teams Rubber Stamps And Dies Supervisor Relationship Specialty Start Date End Date Ekaterina Omer MD PCP - General General Internal Medicine 08/23/[address] [place] [address], [place] [address] documented as of this encounter
--- OUTSIDE RECORDS SUMMARY | 2021-10-13 15:50 | XMS_ITS | Encounter Summary ---
:1950 Author Organization [facility] [place] [address] Care Team Providers Name Role Phone Ekaterina Omer MD Primary Care Provider Encounter Details Date Type Department Care Team Description 04/09/2021 Orders Only Orthopaedics at [facility] Asael Ramey, [facility] [place] [address] [facility] [phone] ORTHOPAEDIC SURG [place], [place] [address] (Wo rk) Social History Tobacco [...] 11/24/2021 Office Visit Neurology Gregg Lacy MD [place], [place] [address] (Wo rk) 04/06/2022 Appointment Radiology 04/06/2022 Office Visit Orthopaedics Wally Rouse MD [facility] ORTHOPAEDIC SURG [place], [place] [address] (Wo rk) documented as of this encounter Visit Diagnoses Not on filedocumented in this encounter Care Teams Solution Manager Relationship Specialty Start Date End Date Ekaterina Omer MD PCP - General General Internal Medicine 08/23/18 [address] [place] [address] documented as of this encounter
--- OUTSIDE RECORDS SUMMARY | 2021-10-13 15:50 | XMS_ITS | Encounter Summary ---
:1950 Author Organization [facility] Address [address] [facility] [facility] [place] [place] [address] Care Team Providers Name Role Phone Ekaterina Omer MD Primary Care Provider Encounter Details Date Type Department Care Team Description 04/04/2021 Hospital Encounter XRay at [facility] Nasim, Wally Elbow stiffness, left; [address] [facility] [address] Denia MD Elbow arthritis [facility] [id number] [phone] ORTHOPAEDIC SURGERY [place] [id number] Social History Tobacco Use Types Packs/Day Years [...] 11/24/2021 Office Visit Neurology Gregg Lacy MD [place] [address] (Wo rk) 04/06/2022 Appointment Radiology 04/06/2022 Office Visit Orthopaedics Wally Rouse MD [facility] ORTHOPAEDIC SURG [place], [place] Jori[address] (Wo rk) documented as of this encounter Procedures Procedure Name Priority Date/Time Associated Diagnosis Comme nts XR ELBOW 3 VIEWS Routine 04/04/2021 8:17 AM Elbow stiffness, R esults for this LEFT (GENERIC) EST left procedure are in Elbow arthritis the results section. documented in this encounter [...] have questions please contact the health daycare provider that requested your imaging first. ? Electronically signed by: Justice Sullivan MD , [facility] ([phone]), at 04/04/2021 9:10 AM Narrative 04/04/2021 9:10 AM EST EXAMINATION: XR [...] have questions please contact the health daycare provider that requested your imaging first. Electronically signed by: Justice Sullivan MD , [facility] ([phone]), at 04/04/2021 9:10 AM Wally Rouse MD IMG DX ORDERABLES documented in this encounter Visit Diagnoses Diagnosis Elbow stiffness, left Elbow arthritis Unspecified arthropathy, upper arm documented in this encounter Care Teams Shuttle Spotter Relationship Specialty Start Date End Date Ekaterina Omre MD PCP - General General Internal Medicine 08/23/18 [address] [place] [address] documented as of this encounter
--- OUTSIDE RECORDS SUMMARY | 2021-10-13 15:50 | XMS_ITS | Encounter Summary ---
:1950 Author Organization [facility] [place] [address] Care Team Providers Name Role Phone Ekaterina Omer MD Primary Care Provider Encounter Details Date Type Department Care Team Description 02/17/2021 Ancillary Procedure Radiology Library at Marichuy Omer [facility] [address] [place], [place] [id number] [place] [id number] [phone] Social History Tobacco Use Types Packs/Day Years [...] 11/24/2021 Office Visit Neurology Gregg Lacy MD [place], [place] [address] (Wo rk) 04/06/2022 Appointment Radiology 04/06/2022 Office Visit Orthopaedics Wally Rouse MD [facility] ORTHOPAEDIC SURG [place], [place] [address] (Wo rk) documented as of this encounter Procedures Procedure Name Priority Date/Time Associated Diagnosis Comme nts FILM LIBRARY Routine 02/17/2021 12:00 AM Results for this STORAGE ONLY CT EST procedure ar e in CHEST the results section. documented in this encounter Results Film Library- Storage Only CT Chest (02/17/2021 12:00 AM EST) Specimen (Source) Anatomical Location Collection Method / Collectio n Time Received Time / Laterality Volume Narrative [facility] - 05/19/2021 11:58 PM EST This exam is auto-finalizing. It's purpo se is for storage only. Ekaterina Omer MD [facility] FILM LIBRARY ORDERABLES Performing Organization Address City/State/ZIP Code Phon e Number [place], [place] documented in this encounter Visit Diagnoses Not on filedocumented in this encounter Care Teams Balance And Hairspring Assembler Relationship Specialty Start Date End Date Ekaterina Omer MD PCP - General General Internal Medicine 08/23/18 [address] [place] [address] documented as of this encounter
--- OUTSIDE RECORDS SUMMARY | 2021-10-13 15:50 | XMS_ITS | Encounter Summary ---
:1950 Author Organization [facility] [place] [address] Care Team Providers Name Role Phone Ekaterina Omer MD Primary Care Provider Encounter Details Date Type Department Care Team Description 03/09/2021 Office Visit Orthopaedics at [facility] Wally Rouse S/p Anthony total elbow [facility] 02/09/21 (Dr. Rouse) [place] [address] [phone] ORTHOPAEDIC SURGERY [place], [place] [address] Social History Tobacco Use Types [...] Sign Reading Time Taken Comments Blood Pressure 136/107 03/09/2021 4:18 PM EST Pulse 69 03/09/2021 4:18 PM EST Temperature - - Respiratory Rate - - Oxygen Saturation - - Inhaled Oxygen Concentration - - Weight 108 kg (238 lb) 03/09/2021 4:18 PM EST Height 160 cm (5' 3) 03/09/2021 4:18 PM EST Body Mass Index 42.16 03/09/2021 4:18 PM EST documented in this encounter Progress Notes Wally Rouse MD - 03/09/2021 4:30 PM EST Orthopaedic Surgery Post-Operative Visit Procedure: Left total elbow replacement, date of surgery 02/09/2021 Interval History: Kiya Cummings is a 71 y.o. female who presents for follow-up regarding her her lefttotal elbow replacement, date of surgery 02/09/2021. She is remained in her splint for the last week.Her splint was removed and demonstrated a pea-sized area of well dried blood. She has no other complaints related to the elbow at this time. Objective: GENERAL: Well appearing, appropriate MUSCULOSKELETAL: Left Elbow Examination Patient is in no acute distress, sitting comfortably in the exam room with her . There is a pea sized area of drainage on the dressing which is completely dry. There is no active drainage at the elbow at this time. Hematoma is smaller and less tense. Overall swelling at the elbow is much improved. Active range of motion from approximately 50 degrees to 100 degrees Motor, sensation, perfusion grossly intact in the hand. Imaging: None today Assessment/Plan: 71 y.o. female who presents for follow up from the above procedure. The patient's elbow seems to be improving overall. There is no active drainage today . Incision was well healed and we are able to remove the josé manuel. I am still concerned about the possibility of developing infectionover time, however this seems to be less and less likely over time as the fluid drainage has become very very scant. It does seem that this could be a superficial collection that does not communicate with the underlying prosthesis. The elbow hematoma has improved significantly at this point. Patient will monitor the elbow for any types of drainage. She will begin gentle range of motion on her own. I will see her back in 1 month for repeat evaluation with x-rays at that time. She will contact the office if she starts to encounter any drainage prior to this. Wally Rouse MD, MS Shoulder and Elbow Surgeon Department of Orthopaedic Surgery [facility]. documented in this encounter Plan of Treatment Upcoming Encounters Date Type Specialty Care Team Description 11/24/2021 Office Visit Neurology Gregg Lacy MD [place], [place] [address] (Wo rk) 04/06/2022 Appointment Radiology 04/06/2022 Office Visit Orthopaedics Wally Rouse MD [facility] ORTHOPAEDIC SURG [place], [place] [address] (Wo rk) documented as of this encounter Visit Diagnoses Diagnosis S/p L total elbow 02/09/21 (Dr. Rouse) documented in this encounter Care Teams Burnisher Relationship Specialty Start Date End Date Ekaterina Omer MD PCP - General General Internal Medicine 08/23/18 [address] [place] [address] documented as of this encounter
--- OUTSIDE RECORDS SUMMARY | 2021-10-13 15:50 | XMS_ITS | Encounter Summary ---
:1950 Author Organization [facility] [place] [address] Care Team Providers Name Role Phone Ekaterina Omer MD Primary Care Provider Encounter Details Date Type Department Care Team Description 12/14/2020 Office Visit Obstetrics and Gynecology William Jones MD [facility] [place] [address] [place] [facility] Saida Mistry APR[place] [facility] [place] [address] [facility] [place] [address] Social History Tobacco Use Types Packs/Day [...] Sign Reading Time Taken Comments Blood Pressure - - Pulse 76 12/14/2020 1:15 PM EDT Temperature - - Respiratory Rate 14 12/14/2020 1:15 PM EDT Oxygen Saturation - - Inhaled Oxygen Concentration - - Weight 106.6 kg (235 lb) 12/14/2020 1:15 PM EDT Height 160 cm (5' 3) 12/14/2020 1:15 PM EDT Body Mass Index 41.63 12/14/2020 1:15 PM EDT documented in this encounter Progress Notes Saida Mistry, MEAT WRAPPER - 12/14/2020 1:30 PM EDT FEMALE PELVIC MEDICINE AND RECONSTRUCTIVE SURGERY POST OPERATIVE VISIT Patient Active Problem List Diagnosis Code ??? Rectus diastasis M62.08 ??? S/P panniculectomy Z98.890 ??? Urinary and fecal incontinence R32, R15.9 ??? Disorder of muscle, ligament, and fascia M62.9 ??? Hypothyroidism E03.9 ??? Gastroesophageal reflux K21.9 ??? Pulmonary embolism I26.99 ??? Depression F32.A ??? LEONARD treated with BiPAP G47.33 ??? OA (osteoarthritis) M19.90 ??? Diverticulosis of large intestine without perforation or abscess without bleeding K57.30 ??? Irritable bowel syndrome with both constipation and diarrhea K58.2 ??? Morbid obesity with BMI of 40.0-44.9, adult E66.01, Z68.41 ??? Mild cognitive impairment G31.84 ??? Phlebitis after infusion T80.1XXA, I80.9 ??? Closed fracture of left distal humerus s/p ORIF Gitajn 09/21/20 S42.402A Date of visit: 12/14/2020 Patient name: Kiya Cummings Date of surgery: 11-24-20 Procedure: Replacement of sacral neurostimulator Pathology: na Subjective: Ms. Cummings is s/p the above procedures. She has been tolerating a regular diet. She deniesnausea and vomiting, and she has been afebrile since surgery. Since surgery, she reports: None x Continued vaginal bleeding New pelvic related pain Abnormal vaginal discharge Burning with urination Blood in urine Enuresis New prolapse symptoms since surgery Bladder Function Number of daytime voids: 7-8 Number of nocturia events: 1 Urinary incontinence since surgery (y/n): Not often If yes, [place] Incontinence Severity Index: How often do you experience urinary leakage? 0. Never 1. Less than once a month 2. A few times a month 3. A few times a week 4. Every day and/or night Value 1 How much urine do you lose each time? 0. None 1. Drops 2. Small Splashes 3. More Value 1 The Severity Index is the product of the two questions 0 - NONE 1-2 Slight 3-6 Moderate 8-9 Severe 12 Very severe SCORE: 2 If yes, leaks with: Event Presence Event Presence NONE Pike Walking x Cold Weather Running Anticipation of going to the lavatory Cough/Sneeze First morning void Lifting Running water Laughing Other Number of pads / day: 1 Pad type: liner Voiding Dysfunction: Symptom Presence NONE x Straining to empty Incomplete emptying Weak stream Feeling the urge to void after voiding Dribbling Changes in position Difficulty initiating a stream Bowel Function Fecal incontinence since surgery? (stool/gas) yes How many fecal incontinence episodes / week? One if loose stool How often do you have bowel movements? daily Any new defecatory problems since surgery?: no IF so which defecatory problem?: Symptom Presence Symptom Presence NONE x Require laxatives regularly Difficulty emptying Less than three bowel movements / week Need to strain Urgency Hard stools Other Loose stools Treatment Outcome Satisfaction How would you describe your level of satisfaction with your treatment outcome? 0. Strongly UNsatisfied 1. UNsatisfied 2. Neither satisfied nor unsatisfied 3. Satisfied 4. Strongly satisfied Value 4 Would you recommend this therapy to a friend?: yes How much has your treatment outcome met your before treatment expectation? 0. Strongly NOT met my before treatment expectations 1. Not met my before treatment expectations 2. Undecided 3. Met my before treatment expectations 4. Strongly met my before treatment expectations 4 A dough cutter is present for the examination na. OBJECTIVE: Pulse 76 Resp 14 Ht 160 cm (5' 3) Wt 106.6 kg (235 lb) BMI 41.63 kg/m?? Bladder scan: 0 mL Urine Dip: pending General: normal appearing female, pleasant mood, normal speech Surgical incision(s): well healed. Skin edges well applied. No evidence of erythema or induration. Back: Non-tender, without costovertebral angle or paraspinal tenderness Her therapy is shut off when I activate the c programmer. Program 1, amplitude 2.9: when I turn this on it is painful, so we have backed the amplitude down to where she did not feel it, then increased to2.3 where she can feel slight perineal sensation. Impression: Ms. Cummings is a 70 y.o. year old woman now 3 wks s/p Interstim placement Plan: Activity: normal as tolerated Pelvic floor exercises 10 reps 2-3 times daily to maintain pelvic floor strength Return in 6 months / PRN to reassess Saida Mistry APRN Division of Female Pelvic Medicine/Reconstructive Surgery documented in this encounter Plan of Treatment Upcoming Encounters Date Type Specialty Care Team Description 11/24/2021 Office Visit Neurology Gregg Lacy MD [place], [place] [address] (Wo rk) 04/06/2022 Appointment Radiology 04/06/2022 Office Visit Orthopaedics Wally Rouse MD [facility] ORTHOPAEDIC SURG [place], [place] [address] (Wo rk) Scheduled Orders Name Type Priority Associated Diagnoses Order S chedule Bladder Scanner PROCEDURE Routine Postop check Ordered: 07/2020 documented as of this encounter Visit Diagnoses Diagnosis Postop check Follow-up examination, following unspeci fied surgery documented in this encounter Care Teams Plug Wirer Relationship Specialty Start Date End Date Ekaterina Omer MD PCP - General General Internal Medicine 08/23/18 [address] [place] [address] documented as of this encounter
--- OUTSIDE RECORDS SUMMARY | 2021-10-13 15:50 | XMS_ITS | Encounter Summary ---
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 Rouse) [place] [address] Social History Tobacco Use Types Packs/Day Years Used Date Former Smoker Cigarettes 1 10 Quit: 05/10/18 73 Smokeless Tobacco: Never Used Alcohol Use Standard Drinks/Week Comments No 0 (1 standard drink = 0.6 oz pure alcoho l) Sex Assigned at Date Recorded Female 01/18/2021 7:28 AM EST documented as of this encounter Progress Notes Ai Millan - 02/21/2021 12:45 PM EST Kiya Cummings presents to the clinic for a cast off per Dr. Rouse . The cast was intact upon arrival. Patient was explained how the cast saw works and the cast was removed. The patient tolerated the procedure well. The patient's skin was intact. The patient was sent to x-ray. After the patient's appointment with Dr. Rouse the patient returns to the cast room for cast application. The patient is going into a well padded long arm plaster splint on the left side. The patient tolerated the procedure well. The patient was given instructions for cast care and was given instructions to call the clinic with any questions or concerns. 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 Rouse) documented in this encounter Care Teams Steel Checker Relationship Specialty Start Date End Date Ekaterina Omer MD PCP - General General Internal Medicine 08/23/18 [address] [place] [address] documented as of this encounter
--- OUTSIDE RECORDS SUMMARY | 2021-10-13 15:50 | XMS_ITS | Encounter Summary ---
:1950 Author Organization [facility] [place] [address] Care Team Providers Name Role Phone Ekaterina Omer MD Primary Care Provider Reason for Visit Reason Onset Date Comments Medication Refill 02/11/2021 Encounter Details Date Type Department Care Team Description 02/11/2021 Refill Orthopaedics [place] [facility] Donna Cespedes S/p L total elbow [facility] [place] CMA 02/09/21 (Dr. Rosue) [place] [address] Social History Tobacco Use Types Packs/Day Years Used Date Former Smoker Cigarettes 1 10 Quit: 05/10/18 73 Smokeless Tobacco: Never Used Alcohol Use Standard Drinks/Week Comments No 0 (1 standard drink = 0.6 oz pure alcoho l) Sex Assigned at Date Recorded Female 01/18/2021 7:28 AM EST documented as of this encounter Miscellaneous Notes Telephone Encounter - Donna Cespedes CMA - 02/11/2021 3:18 PM EST Images from the original note were not included. Medication Refill Request ?? Surgery/Injury/Provider: Dr. Rouse ?? Medication being requested: Oxycodone 5mg ?? Query: Last refill or Original Rx: ? Seen within 30 days (if no, than when): Yes ?? Follow Up: 02/21/21 ?? How is this medication being used currently: 2tabs q4 ?? Pain level: 8 ?? Bowel concerns: No ?? Other pain medications used and how: Tylenol Yes 1000mg q6 Gabapentin No Naproxen No OTHER No ?? Medication Taper Plan: Patient will be taking the least amount possible while still managing her pain. ?? Teaching done regarding: taking nonnarcotic pain medications, taking the least amount of opioid needed for the least amount of time for adequate pain management and tapering of opioids with verbalized understanding by the patient. ?? Requested Prescription to be sent electronically to [facility] [place], [place] (location). ?? Prescription prepped and pended for Dr. Moseley (provider) review. ? The patient knows how to contact orthopaedics if any further questions or concerns occur. 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 Rouse) documented in this encounter Care Teams Fabricator Industrial Furnace Relationship Specialty Start Date End Date Ekaterina Omer MD PCP - General General Internal Medicine 08/23/18 [address] [place] [address] documented as of this encounter
--- OUTSIDE RECORDS SUMMARY | 2021-10-13 15:51 | XMS_ITS | Encounter Summary ---
:1950 Author Organization [facility] [place] [address] Care Team Providers Name Role Phone Ekaterina Omer MD Primary Care Provider Encounter Details Date Type Department Care Team Description 11/24/2020 Surgery Main Operating Room William Jones OPE N IMPLANTATION SACRAL Jessica Lu MD NEUROSTIMULATOR ELECTRODE [facility] (WRU 12.2) [facility] [place] [address] [place], [place] [phone] (Wo rk) [phone] Social History Tobacco Use Types Packs/Day Years [...] Sign Reading Time Taken Comments Blood Pressure 116/66 11/24/2020 9:45 AM EDT Pulse 57 11/24/2020 6:07 AM EDT Temperature 36.5 ??C (97.7 ??F) 11/24/2020 9:26 AM EDT Respiratory Rate 16 11/24/2020 9:45 AM EDT Oxygen Saturation 97% 11/24/2020 9:45 AM EDT Inhaled Oxygen Concentration - - Weight 106.6 kg (235 lb) 11/24/2020 6:07 AM EDT Height 160 cm (5' 3) 11/24/2020 6:07 AM EDT Body Mass Index 41.63 11/24/2020 6:07 AM EDT documented in this encounter Discharge Instructions Patient InstructionsTre Angel MD - 11/24/2020 10:14 AM EDT Images from the original note were not included. Post-op sacral neuromodulation Instructions: ?? Take the antibiotic that was given to you to prevent a skin infection. Keflex 500mg twice daily for 7 days. ?? You can restart your Xarelto tomorrow 11/25/20. Please stop your Xarelto 3 days prior to your nextstage of the surgery. Last dose on 11/28/20. ?? We will call to check on progress. ?? Call us if you have fevers, chills, bleeding around the dressing or increasing pain. ?? Keep the dressing dry. You may sponge bath but no showers. ?? Please call the number below with any questions or concerns. Tre Angel MD Division of Female Pelvic Medicine and Reconstructive Surgery Department of Obstetrics & [place] [address] phone #: fax#: [email or web address] documented in this encounter Medications at Time [...] Tablet oxyCODONE (Roxicodone) Take 1 tablet by 5 tablet 0 021 12/02/2020 5 mg Tablet mouth every 4 hours as needed for Pain for up to 5 doses. acetaminophen (Tylenol) Take 2 tablets by 30 tablet 1 12/0109/16/2021 325 mg Tablet mouth every 4 hours as needed for Pain. cephALEXin (Keflex) 500 Take 1 capsule by 14 capsule 0 11/2412/01/2020 mg Capsule mouth 2 times daily for 7 days. oxyCODONE (Roxicodone) Take 1 tablet by 6 tablet 0 021 12/01/2020 5 mg Tablet mouth every 6 hours as needed for Pain. acetaminophen (Tylenol) Take 2 tablets by 60 tablet 0 11/2412/01/2020 325 mg Tablet mouth every 6 hours as needed for Pain. oxyCODONE (Roxicodone) Take 1 tablet by 10 tablet 0 021 12/01/2020 5 mg TabletIndications: mouth daily as needed Closed fracture of for Pain. distal end of left humerus with routine healing, unspecified fracture morphology, subsequent encounter senna-docusate Take 1 tablet by 60 tablet 0 09/21/202003/14 (Pericolace) 8.6-50 mg mouth daily. Tablet acetaminophen (Tylenol) Take 1,000 mg by 0 12/01/2020 500 mg Tablet mouth every 6 hours as needed for Pain. buPROPion XL Take 150 mg by mouth 0 (Wellbutrin XL) 150 mg every morning. Taking Tablet Extended Release in addition to the 24 hr 300mg for a total of 450mg daily. documented as of this encounter Progress Notes Agnes Wilson RN - 11/24/2020 11:54 AM EDT Patient alert and oriented, vital signs stable. Reviewed discharge instructions; patient and husbandverbalized understanding. Copy of instruction sheet with contact numbers for questions/concerns withhusband. Pain assessment documented. IV removed. Dressing intact with quarter sized drainage spot - no change from when patient arrived to recovery. [employer] met with patient. Patient voided x 2 priorto discharge. Patient escorted out of department via wheelchair with staff. documented in this encounter H&P Notes Tre Angel MD - 11/24/2020 7:20 AM EDT Interval H&P Planned Procedure: Implantation of sacral neurostimulator phases 1 and 2 Indications/Pre-op Diagnosis: Dual fecal and urinary urge incontinence ?? HISTORY OF PRESENT ILLNESS: Ms. Cummings is a 70 y.o. para 2 woman who presents for her planned stage 1 SNM. She was seen for preoperative visit on 09/08/20 by Saida Mistry and had her surgery cancelled twice since then for a left elbow fracture that required surgery and for failure to stop her Xarelto. Patient presents with a history of symptomatic dual incontinence. Please see prior encounter notes for more detail. She is on Aricept for mild cognitive impairment as well as Xarelto for her history ofpulmonary embolism. ?? Today, she reports no changes in her urinary/ fecal incontinence and notes no new symptoms. Plan was made to hold Xarelto the day before each stage and resume it the day after each stage, for both stage 1 and 2. No bridge. Patient reports last dose of Xarelto was on 11/22/20. ?? REVIEW OF SYMPTOMS/FUNCTIONAL STATUS: Chest pain: No Shortness of breath: No Can you walk 1/2 mile or more? Not sure--sciatica Can you go up more than 2 flights of stairs? yes Patient can dress herself? yes Prepare meals herself? yes Bleeding disorder (h/o nose bleeds, excessive bleeding following a surgical procedure?): no Personal or Family history of blood clots?: she has had PE and was on Eliquis for many years from Dr. Khalil. Currently on Xarelto. ?? Sexually active?: yes Last PAP smear: S/p hyst Past anesthesia problems?: no ?? Past Medical History Past Medical History: Diagnosis Date ??? Allergy 1979 ?? sulfur and 2013 sipro ??? Asthma 1977 ?? Mild intermittant ??? Cataract ? Diverticulitis 2005 ??? ENT disease 2009 ?? tinnitus ??? GERD (gastroesophageal reflux disease) ? Hypothyroid ? Mental or behavioral problem 1999 ?? depression ??? Morbid obesity ? Musculoskeletal disease 1999 ?? 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 Pulmonary embolism 2011 ??? Pulmonary nodules ? Imaging consistent with interpulmonary lymph nodes no further follow-up required 2017 ??? Urinary disorder 1984 ?? bladder infections ??? Varicose veins of left lower extremities ? Past Surgical History Past Surgical History: Procedure Laterality Date ??? CYSTOCELE REPAIR 1994 with rectocele repair ??? HYSTERECTOMY 1981 supracervical ??? PRO COLONOSCOPY, DIAGNOSTIC N/A 12/24/2017 COLONOSCOPY, DIAGNOSTIC performed by Caleb Tineo MD at [facility] ENDOSCOPY ??? PRO EXCISE EXCESS SKIN TISSUE, ABDOMEN N/A 03/06/2014 ABDOMINOPLASTY performed by Marcos Vance MD at [facility] MAIN OR ??? PRO OPEN TX HUMERAL SUPRACONDYLAR FRACTURE W/O XTN Left 09/21/2020 OPEN TREATMENT OF HUMERAL SUPRACONDYLAR OR TRANSCONDYLAR FRACTURE, INCLUDES INTERNAL FIXATION WITHOUT INTERCONDYLAR EXTENSION (WRVU 13.15) performed by Nimco Ha MD at [facility] MAIN OR ??? PRO REELBOW LAT LIGMNT W/TISS Left 09/21/2020 LATERAL COLLATERAL LIGAMENT REPAIR, ELBOW (WRVU 9.16) performed by Nimco Ha MD at [facility] MAIN OR ??? PRO REMOVAL OF HEAD OF RADIUS Left 09/21/2020 RADIAL HEAD, EXCISION (WRVU 6.42) performed by Nimco Ha MD at [facility] MAIN OR ??? PRO UNLISTED PROCEDURE, MUSCULOSKELETAL SYSTEM, GENERAL both shouloders rotater cuff ??? VASCULAR SURGERY 1990 varicose veins both legs ?? Social History ?? Socioeconomic History ??? Marital status: ? Spouse name: Not on file ??? Number of children: Not on file ??? Years of education: Not on file ??? Highest education level: Not on file Occupational History ??? Not on file Tobacco Use ??? Smoking status: Former Smoker ? Packs/day: 1.00 ? Years: 10.00 ? Pack years: 10.00 ? Types: Cigarettes ? Quit date: 05/10/1972 ? Years since quittin.3 ??? Smokeless tobacco: Never Used Vaping Use ??? Vaping Use: Never used Substance and Sexual Activity ??? Alcohol use: No ??? Drug use: No ??? Sexual activity: Not on file ? Comment: deferred Other Topics Concern ??? Exercise: Patient reported No ??? Abuse or Threat: Physical, Sexual, Verbal No Social History Narrative ?? Ms. Cummings lives in [place], [place] with her . 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 She has prior history of radon exposure but this is since been mitigated in [facility]. She has not had significant occupational exposures to dusts or fumes although there is an incid ental exposures or work. She has 2 adult children. ? She and her frequently winter in [place]. She enjoys watching TV and biking. ? Social Determinants of Health ?? Financial Resource Strain: ??? Difficulty of Paying Living Expenses: Food Insecurity: ??? Worried About Running Out of Food in the Last Year: ??? Ran Out of Food in the Last Year: Transportation Needs: ??? Lack of Transportation (Medical): ??? Lack of Transportation (Non-Medical): Physical Activity: ??? Days of Exercise per Week: ??? Minutes of Exercise per Session: ? Family History Family History Problem Relation Age of Onset ??? Alcohol Use Disorder Sister ? Thrombophilia Mother ? Coronary Artery Disease Mother ? High Blood Pressure Mother ? Cervical Cancer Mother ? Parkinsonism Father ? Stomach Cancer Brother ? Obesity Brother ? Diabetes Brother ? Myocardial Infarction Brother ? Obesity Sister ? Gallbladder Disease Son ? Gallstones s/p cholecystectomy ? Allergies Allergen Reactions ??? Sulfa (Sulfonamide Antibiotics) Hives ??? Ciprofloxacin ? Macrodantin [Nitrofurantoin Macrocrystal] ? Pramipexole ? Medications Taking Current Outpatient Medications Medication Instructions ??? acetaminophen (TYLENOL) 1,000 mg, Oral, EVERY 6 HOURS PRN ??? ascorbic acid (Vitamin C) (VITAMIN C) 500 mg, Oral, DAILY ??? atorvastatin (Lipitor) 20 mg Tablet atorvastatin 20 mg tablet ??? buPROPion XL (WELLBUTRIN XL) 300 mg, Oral, EVERY MORNING ??? buPROPion XL (WELLBUTRIN XL) 150 mg, Oral, EVERY MORNING, Taking in addition to the 300mg for a total of 450mg daily. ??? cholecalciferol, Vitamin D3, (CHOLECALCIFEROL, VITAMIN D3,) 2,000 unit Capsule 1 capsule, Oral, DAILY ??? docusate sodium (COLACE) 100 mg, Oral, DAILY ??? escitalopram (Lexapro) 20 mg Tablet No dose, route, or frequency recorded. ??? levothyroxine (SYNTHROID) 100 mcg, Oral, DAILY ??? lisinopriL (ZESTRIL) 10 mg, DAILY ??? magnesium 500 mg, Oral, DAILY ??? multivitamin (THERAGRAN) Tablet 1 tablet, Oral, DAILY ??? omeprazole (PRILOSEC) 40 mg, Oral, DAILY ??? oxyCODONE (ROXICODONE) 5 mg, Oral, DAILY PRN ??? senna-docusate (Pericolace) 8.6-50 mg Tablet 1 tablet, Oral, DAILY ??? Xarelto 10 mg Tablet No dose, route, or frequency recorded. ??? zaleplon (SONATA) 10 mg Capsule TAKE 1 CAPSULE BY MOUTH EVERY NIGHT AT BEDTIME NEEDED ?? Patient Vitals for the past 24 hrs: Temp Pulse Resp BP SpO2 11/24/20 0607 36.2 ??C (97.2 ??F) 57 18 153/71 96 % ?? A interior painter is present for the examination not applicable ?? EXAM: Patient Vitals for the past 24 hrs: Temp Pulse Resp BP SpO2 11/24/20 0607 36.2 ??C (97.2 ??F) 57 18 153/71 96 % Gen: well-appearing, NAD, alert, oriented CV: RRR, nml s1/s2 Pulm: CTAB, no wheezes, Abd: soft, nt/nd : deferred to OR Ext: no STEVE bilaterally ?? Opioid Risk Tool Opioid Risk Assessment 08/02/2020 DAST-10 Risk Assessment Low (1-2) Some recent data might be hidden ASSESSMENT: Kiya Cummings is a 70 y.o. woman with dual incontinence who desires surgical intervention as planned for today: INCISION & IMPLANT SACRAL NEUROSTIMULATOR ELECTRODE (WRVU 12.2) ELEC ANALYSIS IMPL NEUROSTIM\PULSE GEN SYS-COMPLEX (WRVU 0.8) MODIFIER,NEUROSTIMULATOR,RECHARGEABLE (stage 1 sacroneuromodulation) ? PLAN: - Consent was reviewed with the patient and she agreed to the procedures as listed: implantation of sacral neurostimulator phase 1 and 2. Consents signed. - She is able to use tylenol, and opioids for pain control. She CANNOT used ibuprofen. She has 2 oxycodone left at home from her elbow surgery, which she takes before going to physical therapy for her elbow. - Preferred pharmacy: [facility] in [place], [place] - Discharge plan: Same day discharge Tre Angel MD Female Pelvic Medicine and Reconstructive Surgery Fellow Adria Rea - 11/24/2020 4:52 AM EDT Female Pelvic Medicine and Reconstructive Surgery Medical Student H&P Name: Kiya Cummings Age: 70 y.o. Date: 11/24/20 ID/CC: Kiya Cummings is a 70 y.o. F here for Interstim device electrode placement (stage 1/2) for dual urine and fecal incontinence with a history significant for recent L humeral supracondylar fractures/p radial head removal, ORIF, and lateral collateral ligament repair (09/21/20), supracervical hysterectomy (1980), A/P vaginal repair (1994), Abdominoplasty, Diverticulitis (2004), Cystitis (1984). Subjective No changes to her history from when she saw Saida Fidelia on 09/08/20. ?? BMI: 41.63 Pelvic Medicine Evaluation - taken on 07/16/[address] Jones Pelvic Exam: Cough stress test (empty supine): neg External Genitalia: Vulva, Joiner's and Bartholin glands normal, urethra without tenderness or mass. LS under good control. Vagina: See POPQ Atrophic epithelium (yes/no)?: yes Discharge?: no Cervix: normal Bimanual (uterus/adnexa): mobile cervix Rectovaginal: Enterocele: no Rectocele: no Anal sphincter: Resting tone 2/5 and squeeze 2/5 Anal wink: present External anal sphincter: attenuated between 10 and 2 o'clock ?? POP Q Measurements: ?? Aa ?? -1 Ba -1 C -5 GH ?? 2, 3 PB ?? 3, 3 TVL ?? 8 Ap ?? 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 Allergy [...] rectocele repair ??? HYSTERECTOMY 1980 supracervical ??? PRO COLONOSCOPY, DIAGNOSTIC N/A 12/24/2017 COLONOSCOPY, DIAGNOSTIC performed by Caleb Tineo MD at [facility] ENDOSCOPY ??? PRO EXCISE EXCESS SKIN TISSUE, ABDOMEN N/A 03/06/2014 ABDOMINOPLASTY performed by Marcos Vance MD at [facility] MAIN OR ??? PRO OPEN TX HUMERAL SUPRACONDYLAR FRACTURE W/O XTN Left 09/21/2020 OPEN TREATMENT OF HUMERAL SUPRACONDYLAR OR TRANSCONDYLAR FRACTURE, INCLUDES INTERNAL FIXATION WITHOUT INTERCONDYLAR EXTENSION (WRVU 13.15) performed by Nimco Ha MD at [facility] MAIN OR ??? PRO REELBOW LAT LIGMNT W/TISS Left 09/21/2020 LATERAL COLLATERAL LIGAMENT REPAIR, ELBOW (WRVU 9.16) performed by Nimco Ha MD at [facility] MAIN OR ??? PRO REMOVAL OF HEAD OF RADIUS Left 09/21/2020 RADIAL HEAD, EXCISION (WRVU 6.42) performed by Nimco Ha MD at [facility] MAIN OR ??? PRO UNLISTED PROCEDURE, MUSCULOSKELETAL SYSTEM, GENERAL both shouloders rotater cuff ??? VASCULAR SURGERY 1989 varicose veins both legs Current Outpatient Medications Medication Instructions ??? acetaminophen (TYLENOL) 1,000 mg, Oral, EVERY 6 HOURS PRN ??? ascorbic acid (Vitamin C) (VITAMIN C) 500 mg, Oral, DAILY ??? atorvastatin (Lipitor) 20 mg Tablet atorvastatin 20 mg tablet ??? buPROPion XL (WELLBUTRIN XL) 300 mg, Oral, EVERY MORNING ??? buPROPion XL (WELLBUTRIN XL) 150 mg, Oral, EVERY MORNING, Taking in addition to the 300mg for a total of 450mg daily. ??? cholecalciferol, Vitamin D3, (CHOLECALCIFEROL, VITAMIN D3,) 2,000 unit Capsule 1 capsule, Oral, DAILY ??? docusate sodium (COLACE) 100 mg, Oral, DAILY ??? escitalopram (Lexapro) 20 mg Tablet No dose, route, or frequency recorded. ??? levothyroxine (SYNTHROID) 100 mcg, Oral, DAILY ??? lisinopriL (ZESTRIL) 10 mg, DAILY ??? magnesium 500 mg, Oral, DAILY ??? multivitamin (THERAGRAN) Tablet 1 tablet, Oral, DAILY ??? omeprazole (PRILOSEC) 40 mg, Oral, DAILY ??? oxyCODONE (ROXICODONE) 5 mg, Oral, DAILY PRN ??? senna-docusate (Pericolace) 8.6-50 mg Tablet 1 tablet, Oral, DAILY ??? Xarelto 10 mg Tablet No dose, route, or frequency recorded. ??? zaleplon (SONATA) 10 mg Capsule TAKE 1 CAPSULE BY MOUTH EVERY NIGHT AT BEDTIME NEEDED Allergies Allergen Reactions ??? Sulfa (Sulfonamide Antibiotics) Hives ??? Ciprofloxacin ??? Macrodantin [Nitrofurantoin Macrocrystal] ??? Penicillins ??? Pramipexole Objective Vitals Patient Vitals for the past 24 hrs: BP Temp Temp src Pulse Resp SpO2 Height Weight 11/24/20 0607 153/71 36.2 ??C (97.2 ??F) Temporal 57 18 96 % 160 cm (5' 3) 106.6 kg (235 lb) Physical Exam GEN: NAD Card: RRR, nl S1, S2, Resp: CTAB Abd: soft, nondistended, nontender Ext: varicose veins present, no pain in lower extremities Labs 11/24/20 0621 POC G CBC: none CMP: none Imaging None Assessment and Plan Kiya Cummings is a 70 y.o. F here for Interstim device electrode placement (stage 1/2) for dual urineand fecal incontinence with a history significant for recent L humeral supracondylar fracture s/p radial head removal, ORIF, and lateral collateral ligament repair (09/21/20), supracervical hysterectomy(1980), A/P vaginal repair (1994), Abdominoplasty, Diverticulitis (2004), Cystitis (1984). ??? Surgical consent was signed on 11/24/20 and reviewed today ??? Acute opioid consent previously signed 11/24/20, ORT low risk (2 pts) ??? Preferred pharmacy is [facility] in [place], [place] ??? Returning in 1-2 weeks for second stage of procedure (implant generator) if urine/fecal incontinence improves by >= 50% ??? Pain Management: acetaminophen, AVOID ibuprofen given bleeding risk, possible oxycodone for breakthrough depending on post-operative pain Adria Rea, MS4 [facility] [employer] [facility] Female Pelvic Medicine and Reconstructive Surgery Pager [phone] documented in this encounter Miscellaneous Notes Op Note - William Jones MD - 11/24/2020 8:06 AM EDT [facility] Operative Note Patient Name: Kiya Cummings : [id number] MR#: [id number] Case Date: 11/24/2020 Surgeon: Surgeon(s) and Role: * William Jones MD - Primary * Tre Angel MD - Fellow Preoperative diagnosis: Refractory urge urinary incontinence Postoperative diagnosis: Refractory urge urinary incontinence Procedure(s) (LRB): INCISION & IMPLANT SACRAL NEUROSTIMULATOR ELECTRODE (WRVU 12.2) (N/A) ELEC ANALYSIS IMPL NEUROSTIM\PULSE GEN SYS-COMPLEX (WRVU 0.8) (N/A) MODIFIER,NEUROSTIMULATOR,RECHARGEABLE (N/A) FLUOROSCOPY (WRVU 0.17) (N/A) Anesthesia: MAC Estimated Blood Loss: 15cc Specimens removed during surgery: None Drains: Ambrocio Surgical Closure: Primary Closure - skin incision is closed but with open spaces for wires, sin, drains or other devices Disposition: aroused from sedation, and taken to the recovery room in a stable condition Condition: doing well without problems (Please see the Surgical Encounter Summary for any Implant and Specimen details pertinent to this patient.) HPI/Surgical Indications: Ms. Cummings is a 70 y.o. para 2 woman with a history of symptomatic dual urgeurinary anf fecal incontinence. Findings: Left-sided S3 needle was implanted with left-sided IPG pocket created. Implant of the leadultimately found lifting of the perineum nico and plantar flexion of the great toe responses oncontacts 0, 1, 2 and 3. Lateral imaging documented the 3rd contact just inside the sacral foramina with appropriate medial to lateral flare seen on AP imaging. This SNM system uses [employer]??? MRI TECHNOLOG[employer]. Procedure Description: Patient was brought to the operating room and placed on the table in a prone position. Pillows were placed under lower abdomen to flatten sacrum and under shins to allow the toesto dangle freely. Extra care was taken to position her left shoulder comfortable in view of her recent left elbow fracture and should pain. She was prepped twice - first with Chlorhexidine and then with a Chloraprep. The patient was draped per our usual technique, with an 3M thousand dressing over theperi-anal area. She received 2 gm IV Ancef for prophylaxis. A time out protocol was adhered to, confirming the patient's identity, planned procedure and safety measures. All personal were covered with lead. The patient's sacrum was mapped using anatomic landmarks and APfluoroscopic imaging. With the sites of the S3 foramina determined the overlying skin was infiltrated with 0.25% marcaine. Local injection of 0.25% Sensorcaine was administered at foramen needle entry point located 2cm lateral to the sacral midline and 2cm cephalad of sciatic notch level. A 3.5 foramen needle was inserted at a 60 degree angle into the right side first, then the left, feeling for theforaminal margins until S3 was identified. Current was applied to the needle and good nico and plantar flexion of the great toe responses elicited utilizing the test stimulation cable and [employer]??? android programmer. The right side showed no response so decision was made for left-sided lead placement. Theneedle was withdrawn and the dilator was inserted over the wire guide. With the dilator depth judgedto be good the dilator was removed leaving the overlying sleeve through which the lead was inserted.The lead contained the bent stylet to produce a lateral flare. The lead depth was determined using lateral imaging. With the contacts exposed current was applied and bellow and toe responses were judged. The depth was adjusted as needed and the lead tines deployed. The future internal neurostimulator pocket site was identified below the iliac crest and lateral to the sacrum on the left side. Local was administered and an incision was made into the subcutaneous tissue and blunt dissection used to create pocket site. The tunneling tool was inserted at the pocket site and tunneled to a contralateral percutaneous extension exit site where a 5mm incision was made. The dilator tip was removed and replaced with the carrier tip. The connector end of the percutaneous extension was pressed fit into the carrier tip and the tunneling tool was pulled back to the pocket site. The lead was inserted into percutaneous extension connection hub. The setscrew was tightened withthe torque wrench until an audible click was heard. The pocket was closed in 2 layers, a deep layer with 2-O Vicryl and a subcuticular layer of 4-O Monocryl followed by DermaBond to seal the lead insertion site and the lead extension exit site. The patient tolerated the procedure well and was taken to the recovery room in stable condition. In the recovery room the patient's lead was attached to the external battery and this battery was programmed. Thepatient was sent home to complete a bladder diary. Infection Bundle used? No Attestation: Case Date: 11/24/2020 I was present and I participated during the entire procedure (does not need to include opening and closing). William Jones MD 11/24/2020 documented in this encounter Plan of Treatment Upcoming Encounters Date Type Specialty Care Team Description 11/24/2021 Office Visit Neurology Gregg Lacy MD [place], [place] [address] (Wo rk) 04/06/2022 Appointment Radiology 04/06/2022 Office Visit Orthopaedics Wally Rouse MD [facility] [place], [place] [address] (Wo rk) documented as of this encounter Procedures Procedure Name Priority Date/Time Associated Diagnosis Comme nts IMPLANTABLE DEVICES 12/01/2020 12:00 SCAN AM EDT FLUOROSCOPY Routine 11/24/2020 9:17 AM EDT XR FLUORO NO RAD <1HR - Routine 11/24/2020 8:54 R esults for this OR USE AM EDT procedure are i n the results section. FLUOROSCOPY (WRVU 0.17) 11/24/2020 7:38 Refractory urg e AM EDT urinary incontinence MODIFIER,NEUROSTIMULATO 11/24/2020 7:38 Refractory urg e R,RECHARGEABLE AM EDT urinary incontinence ELEC ANALYSIS IMPL 11/24/2020 7:38 Refractory urge NEUROSTIM\PULSE GEN AM EDT urinary incontinence SYS-COMPLEX (WRVU 0.8) OPEN IMPLANTATION 11/24/2020 7:38 Refractory urge SACRAL NEUROSTIMULATOR AM EDT urinary incontinen ce ELECTRODE (WRVU 12.2) POCT GLUCOSE Routine 11/24/2020 6:21 Results for this AM EDT procedure are i n the results section. ELEC ANALYSIS IMPL Routine 11/24/2020 6:00 NEUROSTIM\PULSE GEN AM EDT SYS-COMPLEX, 1ST HR INCISION & IMPLANT Routine 11/24/2020 6:00 SACRAL NEUROSTIMULATOR AM EDT ELECTRODE IMPLANTABLE DEVICES 11/24/2020 12:00 SCAN AM EDT documented in this encounter Results SCAN DOC: IMPLANTABLE DEVICES (12/01/2020 12:00 AM EDT) Narrative This result has an attachment that is no t available. Unknown MEDIA MGR SCAN EXT ORDR/RSLT XR Fluoro No Rad <1Hr - OR Use (11/24/2020 8:54 AM EDT) Specimen (Source) Anatomical Location Collection Method / Collectio n Time Received Time / Laterality Volume Narrative Dicom, Auditing User - 11/24/2020 8:54 A M EDT This exam is auto-finalizing. No interpr etation was done. William Jones MD IMG FLUORO ORDERABLES POCT Glucose (11/24/2020 6:21 AM EDT) P athologist Signature POC Glucose 97 65 - 199 [facility] mg/dL [facility] Comment: Supplemental ranges: <140 mg/dL before meals <180 mg/dL all other times of the day Specimen Anatomical Collection Method Collection Time Receive d Time (Source) Location / / Volume Laterality Blood 11/24/2020 6:21 AM 6:21 EDT AM EDT William Jones MD POINT OF CARE TEST ORDERABLE S Performing Organization Address City/State/[place] [address] SCAN DOC: IMPLANTABLE DEVICES (11/24/2020 12:00 AM EDT) Narrative This result has an attachment that is no t available. Unknown MEDIA MGR SCAN EXT ORDR/RSLT documented in this encounter Visit Diagnoses Not on filedocumented in this encounter Administered Medications Inactive Administered Medications - up to 3 most recent administrations Medication Order MAR Action Action Date Dose Rate Site acetaminophen (Tylenol) tablet Given 11/24/2020 6:34 AM EDT 1,00 0 mg 1,000 mg 1,000 mg, Oral, ONCE, 1 dose, On Sun11/24/20 at 0630, Administer with SIP of H2O only., Day of Surgery (Day of Procedure), Routine BUpivacaine (pf) (Marcaine) Given 11/24/2020 8:47 AM EDT 30 mLs 07- Back Lower (2.5 mg/mL) 0.25% injection (Left) ONCE PRN, Starting on Sun11/24/20 at 0847, Until Sun11/24/20 at 1358, Intra-Operative (Intra-Procedure), Routine HYDROmorphone (Dilaudid) (0.2 mg/1 mL) Given 11/24/2020 9:40 AM EDT 0.4 mg injection syringe 0.4 mg 0.4 mg, Intravenous, EVERY 10 MIN PRN, Starting on Sun11/24/20 at 0930, Until Sun11/24/20 at 1156, Pain, For Moderate to Severe Pain (6-10 out of 10), Hold for respiratory rate less than 10 per minute. Maximum dose 3 mg over one hour including administrations in the OR. If multiple pain medications are ordered, start with HYDROmorphone or morphine and use fentaNYL for breakthrough pain, PACU Recovery, Routine ketorolac (Toradol) (30 mg/mL) injection 30 mg Given 11/24/2020 9:40 AM EDT 30 mg 30 mg, Intravenous, ONCE, 1 dose, On Sun11/24/20 at 0945, Routine lidocaine-EPINEPHrine (1% - Given 11/24/2020 9:02 AM 8 mLs 07- Back Lower 1:100,000) injection EDT (Left) ONCE PRN, Starting on Sun11/24/20 at 0902, Until Sun11/24/20 at 1358, Intra-Operative (Intra-Procedure), Routine oxyCODONE (Roxicodone) tablet 5 mg Given 11/24/2020 9:59 AM EDT 5 mg 5 mg, Oral, ONCE, 1 dose, On Sun11/24/20 at 1000, Routine phenazopyridine (Pyridium) tablet 200 mg Given 11/24/2020 6:34 AM EDT 200 mg 200 mg (rounded from 190 mg), Oral, ONCE, 1 dose, On Sun11/24/20 at 0630, Day of Surgery (Day of Procedure), Routine documented in this encounter Active and Recently Administered Medications Times are shown in EDT. Scheduled Medication Order 11/22/2020 11/23/2020 11/24/2020 acetaminophen (Tylenol) tablet 1,000 mg (COMPLETED) 633 (Given - Provider: Donna Ledesma RN) 1,000 mg, Oral, ONCE, 1 dose, On 11/10 at 0630, Administer with SIP of H2O only., Day of Surgery (Day of Procedure), Routine ceFAZolin (Ancef) 2 g in dextrose 5% 100 mL (2 x 1 g/50 mL premix bags) infusion (COMPLETED) 0753 (Given - Provid er: Nathalie Grajeda MD) 2 g, Intravenous, ONCE, 1 dose, On Sun at 0630, Administer over 30 Minutes, Heel Gummer to OR Infuse over 30 minutes. Total dose of ceFAZolin 2 grams, administered using two ceFAZolin 1g/50mL IV bag s. Infuse each ceFAZolin 1g/50mL bag ove r 30 minutes (100 ml/hr) for total infusion time of 60 minutes. On the MAY, document administration of first bag using New Bag (1 of 2) MAR action for dose of 1 g. On the MAY, document administration o f second bag using Next Bag (2 of 2) MAR action for dose of 1g (resulting in total dose of 2g)., Day of Surgery (Day of Procedure), Indication for (Active or Suspected): Prophylaxis ketorolac (Toradol) (30 mg/mL) injection 30 mg (COMPLETED) 939 (Given - Provider: Agnes Wilson RN) 30 mg, Intravenous, ONCE, 1 dose, On Sun11/24/20 at 0945, Routin e oxyCODONE (Roxicodone) tablet 5 mg (COMPLETED) 958 (Given - Provider: Agnes Wilson RN) 5 mg, Oral, ONCE, 1 dose, On Sun11/24/20 at 1000, Routine phenazopyridine (Pyridium) tablet 200 mg (COMPLETED) 633 (Given - Provider: Donna Ledesma, RN) 200 mg (rounded from 190 mg), Oral, ONCE , 1 dose, On Sun11/24/20 at 0630, Day of Surgery (Day of Procedure), Routine Continuous Medication Order 11/22/2020 11/23/2020 11/24/2020 lactated ringers infusion 1015 ( Due) 1,000 mL, at 100 mL/hr, Intravenous, CON TINUOUS, Starting on Sun11/24/20 at 1015, Until Sun11/24/20 at 1358 PRN Medication Order 11/22/2020 11/23/2020 11/24/2020 acetaminophen (Tylenol) tablet 650 mg 650 mg, Oral, EVERY 6 HOURS PRN, Startin g on Sun11/24/20 at 0947, Until Sun11/24/20 at 1358, Pain, If multiple pain medications ordered, use acetaminophen first. Maximum dose of acetaminophen is 4000 mg from all sources in 24 hours. When orde red for pain, acetaminophen should be given even when other ordered pain medications are indicated., Routine BUpivacaine (pf) (Marcaine) (2.5 mg/mL) 0.25% injection (CANCELE D) 0847 (Given - Provider: William Jones MD) ONCE PRN, Starting on Sun11/24/20 at 084 7, Until Sun11/24/20 at 1358, Intra- Operative (Intra-Procedure), Routine HYDROmorphone (Dilaudid) (0.2 mg/1 mL) injection syringe 0.4 mg (CANCELED) 0940 (Given - Provider: Agnes Wilson RN) 0.4 mg, Intravenous, EVERY 10 MIN PRN, S tarting on Sun11/24/20 at 0930, Until Sun11/24/20 at 1156, Pain, For Moderate to Severe Pain (6-10 out of 10), Hold for respiratory rate less than 10 per minute. Maximum dose 3 mg over one hour includin g administrations in the OR. If multiple pain medications are ordered, start with HYDROmorphone or morphine and use fentaNYL for breakthrough pain, PACU Recovery, Routine lidocaine-EPINEPHrine (1% - 1:100,000) injection (CANCELED) 0902 (Given - Provider: William Jones MD) ONCE PRN, Starting on Sun11/24/20 at 090 2, Until Sun11/24/20 at 1358, Intra- Operative (Intra-Procedure), Routine oxyCODONE (Roxicodone) tablet 5-10 mg 5-10 mg, Oral, EVERY 3 HOURS PRN, Starti ng on Sun11/24/20 at 0947, Until Sun11/24/20 at 1358, Pain, - If multiple pain medications ordered, use acetaminophen first. - If pain not relieved by acetaminoph en first, administer oxycodone. - Initia l dose 5 mg. - If pain control not adequate in 60 minutes, give additional 5 mg., Routine documented in this encounter Care Teams Stripper [employer] Relationship Specialty Start Date End Date Ekaterina Omer MD PCP - General General Internal Medicine 08/23/18 [address] [place] [address] documented as of this encounter
--- OUTSIDE RECORDS SUMMARY | 2021-10-13 15:51 | XMS_ITS | Encounter Summary ---
:1950 Author Organization [facility] [place] [address] Care Team Providers Name Role Phone Ekaterina Omer MD Primary Care Provider Reason for Referral Home Health Care (Routine) - Specialty Diagnoses / Procedures Referred By Contact Refer red To Contact Unknown Specialty Diagnoses Phlebitis after infusion, initial encounter Closed bicondylar fracture of distal end of left humerus, initial encounter Nimco Ha MD [facility] [address] [place] [address] Referral ID Status Reason Start Date Expiration Date Visits V isits Requested Authorized [id number] 09/17/2020 03/16/2021 1 1 Subset of Care Encounter Details Date Type Department Care Team Description 09/17/2020 Orders Only Orthopaedics at [facility] Sandy Gillis Phlebitis after infusion, in itial encounter; [facility] BILLY Crouch Closed bicondylar fracture o f distal end of left humerus, [place] [address] Social History Tobacco Use Types Packs/Day Years Used Date Former Smoker Cigarettes 03 21 Quit: 05/10/18 73 Smokeless Tobacco: Never Used Alcohol Use Standard Drinks/Week Comments No 0 (1 standard drink = 0.6 oz pure alcoho l) Sex Assigned at Date Recorded Female 01/18/2021 7:28 AM EST documented as of this encounter Plan of Treatment Upcoming Encounters Date Type Specialty Care Team Description 11/24/2021 Office Visit Neurology Gregg Lacy MD [place], [place] [address] (Wo rk) 04/06/2022 Appointment Radiology 04/06/2022 Office Visit Orthopaedics Wally Rouse MD [facility] ORTHOPAEDIC SURG [place], [place] [address] (Wo rk) Scheduled Referrals Name Type Priority Associated Diagnoses Order S chedule Referral to Home Outpatient Referral Routine Phlebitis after O rdered: Health - Clinic infusion, initial 021 Use encounter Closed bicondylar fracture of distal end of left humerus, initial encounter documented as of this encounter Visit Diagnoses Diagnosis Phlebitis after infusion, initial encoun ter Closed bicondylar fracture of distal end of left humerus, initial encounter documented in this encounter Care Teams Casing Worker Relationship Specialty Start Date End Date Ekaterina Omer MD PCP - General General Internal Medicine 08/23/18 [address] [place] [address] documented as of this encounter
--- OUTSIDE RECORDS SUMMARY | 2021-10-13 15:51 | XMS_ITS | Encounter Summary ---
:1950 Author Organization [facility] [place] [address] Care Team Providers Name Role Phone Ekaterina Omer MD Primary Care Provider Reason for Referral Diagnostic Test (Routine) - Closed Specialty Diagnoses / Procedures Referred By Contact Refer red To Contact Radiology Diagnoses Closed bicondylar fracture of distal end of left humerus, initial encounter Dona Mary PA [facility] Rad Ct Scan Procedures CT Elbow wo Contrast Left (Generic) [facility] [place] [address] [place] [address] Referral ID Status Reason Start Date Expiration Date Visits V isits Requested Authorized [id number] Closed Specialty 11/10/2020 05/10/2022 1 Service Requested Reason for Visit Reason Comments Follow-up 09/21/20 left elbow fx Consultation (Urgent) - Closed Specialty Diagnoses / Procedures Referred By Contact Refer red To Contact Orthopaedics Diagnoses severely comminuted distal humerus and left radial head fx-DOI-09/08/20 Daly Montano MD [facility] [address] [place], [place] [address] [place] [address] Fax: Referral ID Status Reason Start Date Expiration Date Visits V isits Requested Authorized [id number] Closed Consult, Test 09/09/2020 09/09/2021 [facility] PCP Updated and/or Approved Encounter Details Date Type Department Care Team Description 11/08/2020 Office Visit Orthopaedics at [facility] Dona Mary Closed bicondylar [facility] CHRISTOPHE Gan fracture of distal [address] [facility] end of left humerus, [place] [address] initial encounter [phone] ORTHOPAEDIC SURGERY [place], [place] [address] Social History Tobacco Use Types [...] Sign Reading Time Taken Comments Blood Pressure 112/67 11/08/2020 9:33 AM EDT Pulse 64 11/08/2020 9:33 AM EDT Temperature - - Respiratory Rate - - Oxygen Saturation - - Inhaled Oxygen Concentration - - Weight 111.1 kg (244 lb 14.9 oz) 11/08/2020 9:33 AM EDT Height 160.7 cm (5' 3.27) 11/08/2020 9:33 AM EDT Body Mass Index 43.02 11/08/2020 9:33 AM EDT documented in this encounter Progress Notes Dona Mary PA - 11/08/2020 10:00 AM EDT PATIENT NAME: Kiya Cummings AGE: 70 y.o. MR#: [id number] DATE OF VISIT: 11/08/2020 CHIEF COMPLAINT: 7 weeks post 09/21/20 (Gitajn) LEFT intraarticular distal humerus fx ORIF Capitellar trochlear shear fractures open reduced and fixed with 6 2 K wires, partial radial head excised as it was extremely comminuted, L UCL repair with suture anchor. Closed and placed into a posterior slab splint with a strut HISTORY OF PRESENT ILLNESS: Ms. Cummings is a 70 y.o. female who comes into clinic today for evaluation of the LEFT elbow. The PT was last in to see myself on 10/08/2020 . Since this visit feels okay overall but had some increase in pain in the weekend. No trauma noted., Working with PT at [facility] in [place]. currently taking 2 oxycodone per week prior to physical therapy appointment. She has 6 tablets left. Past medical history: Patient Active Problem List Diagnosis Date Noted ??? Closed fracture of left distal humerus [...] S/P panniculectomy 06/25/2014 ??? Rectus diastasis 10/01/2013 Medications: ??? oxyCODONE (Roxicodone) 5 mg Tablet ??? senna-docusate (Pericolace) 8.6-50 mg Tablet ??? docusate sodium (Colace) 100 mg Capsule ??? lisinopriL (Zestril) 20 mg Tablet ??? acetaminophen (Tylenol) 500 mg Tablet ??? amLODIPine (Norvasc) 2.5 mg Tablet ??? atorvastatin (Lipitor) 20 mg Tablet ??? buPROPion XL (Wellbutrin XL) 150 mg Tablet Extended Release 24 hr ??? omeprazole (PriLOSEC) 40 mg Capsule, Delayed Release(E.C.) ??? escitalopram (LEXAPRO) 10 mg Tablet ??? buPROPion (WELLBUTRIN XL) 300 mg Tablet Extended Release 24 hr ??? levothyroxine (SYNTHROID) 100 mcg Tablet ??? multivitamin (THERAGRAN) Tablet ??? magnesium 250 mg Tablet ??? cholecalciferol, Vitamin D3, (CHOLECALCIFEROL, VITAMIN D3,) 2,000 unit Capsule ??? ascorbic acid, vitamin C, (VITAMIN C) 500 mg Tablet ??? ELIQUIS 2.5 mg Tablet Allergies: Allergies Allergen Reactions ??? Sulfa (Sulfonamide Antibiotics) Hives ??? Ciprofloxacin ??? Macrodantin [Nitrofurantoin Macrocrystal] ??? Penicillins ??? Pramipexole Social history: Social History Tobacco Use ??? Smoking status: Former Smoker Packs/day: 1.00 Years: 10.00 Pack years: 10.00 Types: Cigarettes Quit date: 05/10/1972 Years since quittin.5 ??? Smokeless tobacco: Never Used Substance Use Topics ??? Alcohol use: No Review of systems: No chest pain or shortness of breath No fevers, night sweats or chills Vital signs: Visit Vitals BP 112/67 Pulse 64 Ht 160.7 cm (5' 3.27) Wt 111.1 kg (244 lb 14.9 oz) BMI 43.02 kg/m?? Physical exam: Ms. Cummings is a 70 y.o. female who is alert and oriented. She is in no acute discomfort and is resting comfortably in the exam room. Lateral incision well healed. Demonstrate extension 30 degrees shy of complete Flexion 90 Neuro: Median: pad of 2cd digit intact to sensation, finger PIP flexion, index DIP flexion; motor intact Radial: dorsal aspect of thenar eminence intact to sensation; thumb abduction, and wrist extension motor intact Ulnar: pad of 5th, intact to sensation, finger abduction: motor intact . Imaging studies: XR images of the LEFT distal humerus show reduced capitellar shear fracture with K wire, excision ofthe comminuted radial head, headless screw placed. There is a wire that appears to be backing out. Assessment and plan:: 70 y.o. year-old female now roughly 7 weeks out post 09/21/20 ([place]) LEFT intraarticular distal humerus fx ORIF Capitellar trochlear shear fractures open reduced and fixed with 6 2 K wires, partial radial head excised as it was extremely comminuted, L UCL repair with suture anchor. Closed and placed into a posterior slab splint with a strut We had a long discussion regarding the nature of Kiya Cummings's healing. We reviewed the imaging togetherXR images of the LEFT distal humerus show reduced capitellar shear fracture with K wire, excision of the comminuted radial head, headless screw placed. There is a wire that appears to be backing out. Clinically Kiya Cummings has improved elbow ROM though is still a bit limited. I reviewed the case with Dr. Ha and she would like Kiya to obtain a CT. I will be placing an order for this. This plan was discussed with the patient and they are in agreement. All of the patient's questions were answered. The patient understand to contact us if they have any other questions or concerns. FU: CT, will call with results. Dona Mary PA-C The above dictation was made with voice recogonition software documented in this encounter Plan of Treatment Upcoming Encounters Date Type Specialty Care Team Description 11/24/2021 Office Visit Neurology Gregg Lacy MD [place], [place] [address] (Tulio raymond) 04/06/2022 Appointment Radiology 04/06/2022 Office Visit Orthopaedics Wally Rouse MD [facility] ORTHOPAEDIC SURG [place], [place] [address] (Tulio raymond) Scheduled Orders Name Type Priority Associated Diagnoses Order S chedule XR Elbow 3 Views Imaging Routine Closed bicondylar Expect ed: 11/08/2020, Left (GENERIC) fracture of distal end of Expires: 05/10/2021 left humerus, initial encounter documented as of this encounter Results CT Elbow wo Contrast Left (Generic) (11/17/2020 3:10 PM EDT) Anatomical Region Laterality Modality Elbow Left Computed Tomography Specimen (Source) Anatomical Collection Method Collection Time Re ceived Time Location / / Volume Laterality 11/17/2020 3:27 PM EDT Impressions 11/17/2020 3:23 PM EDT Multiple fractures about the elbow with unchanged alignment. No change in alignment of the hardware. Thank you for letting us participate in the care of this patient. ??If you are a health care provider and have any questi ons regarding this report, please contact the number below. ??For patients who have questions please contact the health child caregiver private home that requested your imaging first. ? Electronically signed by: Justice Sullivan MD , [facility] ([phone]), at 11/17/2020 3:23 PM Narrative 11/17/2020 3:23 PM EDT EXAMINATION: CT ELBOW WO CONTRAST LEFT (GENERIC) CLINICAL HISTORY: Left Intraarticular di stal humerus ORIF Question if hardware is backing out TECHNIQUE: Noncontrast CT of the left elbow COMPARISON: Radiographs 11/08/2020 FINDINGS: Similar truncation of the radial head. S imilar bony fragments about the elbow joint. Similar bony irregularity at the coronoid. Status post pinning of the distal humerus. The pins traverse the di stal humeral fracture which are still visible. There is no back out of the pin s. There is a joint effusion. There is callus at the anterior aspect of the dis camille humerus. Procedure Note Justice Sullivan MD - 11/17/2020Formatting o f this note might be different from the original. EXAMINATION: CT ELBOW WO CONTRAST LEFT ( GENERIC) CLINICAL HISTORY: Left Intraarticular di stal humerus ORIF Question if hardware is backing out TECHNIQUE: Noncontrast CT of the left elbow COMPARISON: Radiographs 11/08/2020 FINDINGS: Similar truncation of the radial head. S imilar bony fragments about the elbow joint. Similar bony irregularity at the coronoid. Status post pinning of the distal humerus. The pins traverse the di stal humeral fracture which are still visible. There is no back out of the pin s. There is a joint effusion. There is callus at the anterior aspect of the dis camille humerus. IMPRESSION Multiple fractures about the elbow with unchanged alignment. No change in alignment of the hardware. Thank you for letting us participate in the care of this patient. If you are a health care provider and have any questi ons regarding this report, please contact the number below. For patients w ho have questions please contact the health child caregiver private home that requested your imaging first. Electronically signed by: Justice Sullivan MD , [facility] ([phone]), at 11/17/2020 3:23 PM Nimco Ha MD IMG CT ORDERABLES documented in this encounter Visit Diagnoses Diagnosis Closed bicondylar fracture of distal end of left humerus, initial encounter Closed bicondylar fracture of distal end of left humerus, initial encounter documented in this encounter Care Teams Em Physician Relationship Specialty Start Date End Date Ekaterina Omer MD PCP - General General Internal Medicine 08/23/18 [address] [place] [address] documented as of this encounter
--- OUTSIDE RECORDS SUMMARY | 2021-10-13 15:51 | XMS_ITS | Encounter Summary ---
:1950 Author Organization [facility] [place] [address] Care Team Providers Name Role Phone Ekaterina Omer MD Primary Care Provider Encounter Details Date Type Department Care Team Description 09/28/2020 Telephone Anesthesiology Marcus Devlin MD [facility] [place] [address] ANESTHESIOLOGY DEPT [phone] [place], [place] [address] (Wo rk) Social History Tobacco [...] 11/24/2021 Office Visit Neurology Gregg Lacy MD [place], [place] [address] (Wo rk) 04/06/2022 Appointment Radiology 04/06/2022 Office Visit Orthopaedics Wally Rouse MD [facility] ORTHOPAEDIC SURG [place], [place] [address] (Wo rk) documented as of this encounter Visit Diagnoses Not on filedocumented in this encounter Care Teams Potato Loader Relationship Specialty Start Date End Date Ekaterina Omer MD PCP - General General Internal Medicine 08/23/18 [address] [place] [address] documented as of this encounter
--- OUTSIDE RECORDS SUMMARY | 2021-10-13 15:51 | XMS_ITS | Encounter Summary ---
:1950 Author Organization [facility] [place] [address] Care Team Providers Name Role Phone Ekaterina Omer MD Primary Care Provider Encounter Details Date Type Department Care Team Description 09/21/2020 Hospital Encounter Same Day Program at [facility] os[facility] bicondylar Jessica Haile MD fracture of [facility] end of left humerus, [facility] initial encounter Drive ORTHOPAEDIC [place], [place] SURGERY [id number] [place], [place] [phone] [facility] Social History Tobacco Use Types Packs/Day Years [...] Sign Reading Time Taken Comments Blood Pressure 127/75 09/21/2020 10:30 AM EDT Pulse 59 09/21/2020 10:28 AM EDT Temperature 36.8 ??C (98.2 ??F) 09/21/2020 10:28 AM EDT Respiratory Rate 16 09/21/2020 10:30 AM EDT Oxygen Saturation 95% 09/21/2020 10:30 AM EDT Inhaled Oxygen Concentration - - Weight - - Height - - Body Mass Index - - documented in this encounter Discharge Instructions Patient InstructionsStorm Sahu MD - 09/21/2020 7:29 AM EDT Activity level: Non-weight bearing. Remember to keep your Left upper extremity elevated as much as possible to decrease swelling and control pain. You should wear the sling for comfort. Use pillows under the arm to assist with elevation. DVT prevention: You have been discharged on Aspirin 81mg once a day for 4 weeks. This will help decrease your chance of developing a blood clot. Diet: You may return to your usual diet, but increase your fluids and fiber intake to keep you hydrated and your bowels soft. You should increase your intake of high protein foods and fluids to help heal your injury. Driving: Do not drive until cleared to do so by your orthopaedic physician. Ideally you should not drive while you are on narcotic pain medications as they can affect judgment and reaction time. Contact your surgeon with questions. Medications: 1. The pain medication you are on can cause constipation, so increase your intake of fluids and fiber while you are taking them. You should also take the stool softener, Senakot, that was ordered to facilitate a bowel movement. MiraLAX, an ewpq-bcd-ulwbrba medication can also be used if needed to combat constipation. 2. If you need a renewal on your narcotic pain medication, you need to give the Orthopedic clinic enough time to process your request. This can take up to three days, so plan accordingly. 3. Continue the Tylenol around the clock for the next 10 days. It can be effective in controlling pain along with your other medications. Shower/Bath: You may shower BUT you need to cover the dressing with a bag or other waterproof dressing to prevent it from getting wet. This might be difficult depending on its size and location so a sponge bath might be easier. Because of your injury your balance may also be off so always have a chair available for protection. Wound Care: 1. Suture/staple removal 12-14 days post-op. (at your follow up) 2. Leave your dressing in place for one week. After that you can change the dressing as needed or leave the wound open to air. A dry dressing after this may protect your clothing or decrease wound sensitivity. Call your doctor at [phone] if you develop: 1. fevers greater than 100.5 2. severe nausea or vomiting 3. increasing pain not controlled by pain medications 4. increasing redness or drainage from incisions 5. Change in sensation Misc: 1. If you are a smoker, quitting is very important to help your fracture heal. You should contact your PCP to assist you with setting up a cessation program. 2. Do not start any bisphosphonate therapy for at least 6 months after your surgery. FOLLOW UP APPOINTMENTS: 1. You will have follow up appointments at [facility] [place] [place] as indicated in Future Appointment and Orders. Youwill have an x-ray prior to those appointments so please come to Radiology, desk 3T, 1 hour BEFORE your appointment for those x-rays. 2. If you are being discharged over the weekend or at night and do not have a scheduled appointment with Orthopaedics, you should be notified about your appointment within the next 1-2 days. Please call if you do not hear about an appointment within that timeframe, as your follow-up is important to us. Future Appointments Date Time Provider Department Center 10/08/2020 1:00 PM [facility] DX ROOM 1 Xray [facility] Rad 10/08/2020 2:00 PM Dona Mary PA [facility] [place] [place] ORTH 3C [facility] [place] [place] 12/14/2020 1:30 PM William Jones MD [facility] [place] [place] OBG 5L [facility] [place] [place] documented in this encounter Medications at Time of Discharge Medication Sig Dispensed Refills Start Date End Date docusate sodium Take 100 mg by mouth [...] Take 1 tablet by 5 tablet 0 12/01/ 021 12/02/2020 5 mg Tablet mouth every [...] Pain. oxyCODONE (Roxicodone) Take 1 tablet by 20 tablet 0 021 09/24/2020 5 mg Tablet mouth every 4 hours as needed for Pain (Take 1 tablet every 4 hours as needed for moderate to severe pain (5-10)). senna-docusate Take 1 tablet by 60 tablet 0 09/21/2020/3 03/2021 (Pericolace) 8.6-50 mg mouth daily. Tablet lisinopriL (Zestril) 20 Take 20 mg by mouth 0 11/08/2020 mg Tablet daily. oxyCODONE 5 mg Capsule Take 5 mg by mouth 0 09/24/2020 every 4 hours as needed. cephALEXin (KEFLEX) 500 Take 1 tablet by 40 tablet 0 202009/25/2020 mg Tablet mouth 4 times daily for 10 days. acetaminophen (Tylenol) Take 1,000 mg by 0 12/01/2020 500 mg Tablet mouth every 6 hours as needed for Pain. amLODIPine (Norvasc) amlodipine 2.5 mg 0 11/09/2020 2.5 mg Tablet tablet buPROPion XL Take 150 mg by mouth 0 (Wellbutrin XL) 150 mg every morning. Taking Tablet Extended Release in addition to the 24 hr 300mg for a total of 450mg daily. UNABLE TO FIND Take 10 mg by mouth. 0 10/09/2020 Med Name: Cetirizine/Zyrtec escitalopram (LEXAPRO) take 1 tablet by 0 019 11/08/2020 10 mg Tablet mouth once daily ELIQUIS 2.5 mg Tablet Take 2.5 mg by mouth 1 03/201711/08/2020 2 times daily. documented as of this encounter Progress Notes Enid Lyle RN - 09/21/2020 11:31 AM EDT Patient alert and oriented, vital signs stable. Reviewed discharge instructions; patient and husbandverbalized understanding. Copy of instruction sheet with contact numbers for questions/concerns. Pain assessment documented. Patient escorted out of department via wheelchair with [employer]. documented in this encounter H&P Notes Storm Sahu MD - 09/21/2020 6:58 AM EDT The patient's history and physical exam have been reviewed and completed. There has been no intervalchange from that of the pre-operative history and physical exam done within the last 30 days. RRR w/o R/M/G LCTAB Storm Sahu MD Orthopaedic Surgery Associated attestation - [facility] MD - 09/21/2020 7:09 AM EDT I have seen the patient and reviewed the attached history/physical and all imaging and I agree with the details as written. The assessment and plan were formulated in discussion with me and I agree with them as documented. Lazara Ha MD Department of Orthopaedics 09/21/2020 documented in this encounter Miscellaneous Notes Op Note - Storm Sahu MD - 09/21/2020 7:55 AM EDT [facility] [place] [place] Operative Note Patient Name: Kiya Cummings : [id number] MR#: [id number] Case Date: 09/21/2020 Surgeon: Surgeon(s) and Role: * [facility] MD - Primary * Storm Sahu MD - Resident * Asael Ramey MD - Resident Preoperative diagnosis: left intraarticular distal humerus fracture Postoperative diagnosis: left intraarticular distal humerus fracture Procedure(s) (LRB): OPEN TREATMENT OF HUMERAL SUPRACONDYLAR OR TRANSCONDYLAR FRACTURE, INCLUDES INTERNAL FIXATION WITHOUT INTERCONDYLAR EXTENSION (WRVU 13.15) (Left) RADIAL HEAD, EXCISION (WRVU 6.42) (Left) LATERAL COLLATERAL LIGAMENT REPAIR, ELBOW (WRVU 9.16) (Left) Findings: Capitellar trochlear shear fractures open reduced and fixed with 6 2 K wires, partial radial head excised as it was extremely comminuted, L UCL repair with suture anchor. Closed and placed into a posterior slab splint with a strut. Anesthesia: General Estimated Blood Loss: 30 mL Specimens removed during surgery: * No orders in the log * Drains: None Surgical Closure: Primary Closure - [...] details pertinent to this patient.) HPI/Surgical Indications: This is a 70-year-old female who sustained a fall with a left distal humerus and radial neck fracture. Please see prior H&P for more detailed information. After discussingthe risk and benefits of open reduction and internal fixation with likely ORIF versus excision of the radial head the patient elected proceed with surgery. Procedure Description: Patient was met in the preoperative holding area, a green otoe-missouria was placed in the patient's left upper extremity in accordance with hospital policy. Written informed consent wasobtained. The patient underwent a block with the local team. She was then taken to the operating room and placed on the operative table in the supine position with all bony prominences well- padded. Shewas given prophylactic antibiotics through her IV. She then underwent general anesthesia with LMA. She was then prepped and draped in the normal sterile fashion. We took a surgical timeout in accordance with hospital policy and the scheduled procedure was found to be in agreement with the written infor med consent. Attention was then turned to the patient's left upper extremity. An incision was made over the lateral epicondyle towards Chau's tubercle in a standard Siddiqi approach. The dissection was carried down with a combination of Bovie cauterization and tenotomy dissection until the fascial layer of the extensor wad was encountered. We then incised the fascia in the interval between extensor carpi radialis brevis and the EDC with the arm in full supination to protect the PIN. Once this dissection was obtained we continued down until the capsule was encountered. It was noted that the L UCL was noted to be partially disrupted. We elevated the ECRB off of the lateral condyle of the humerus and elevated a p ortion of the EDC off of the lateral condyle of the humerus. At this point time the joint capsule was incised and exposed. Fracture hematoma was found and irrigated. A portion of loose bone was immediately present in the wound bed and was removed. We then evaluated the joint and there was 2 large fragments found at the trochlea and the capitellum respectively. The radial head was also found to be partially fractured and displaced posterior to the capitellum. This radial head portion was removed and a portion of the radial head remained in contact with the radial neck. The fracture was debrided withcurette and irrigated. We then reduced the fracture using a dental pick and fixed the trochlear piece with 3 62 K wires that were fully threaded, we then placed 2 additional 6 2 K wires into the intra-articular piece. These were advanced under C arm fluoroscopy until they were bicortical and not violating the olecranon fossa. The fixation was evaluated and found to be with adequate reduction. We thencut the wires as flush as possible within the limits of the space in the elbow. We then took the Midas bur and continue to bur down the remainder of the K wires until they were flushed with the articular surface taking care to keep the instrument cool with saline. The elbow was then vigorously irrigated with sterile saline and then attempt to remove all of the metal debris was performed. Once this was done the fracture was again evaluated and found to be in anatomic position. The K wires were once again evaluated under C-arm fluoroscopy and found to be contained within the bone with no prominent ends. Attention was then turned to the disrupted L UCL. A 3 5 titanium anchor was then introduced into thelateral portion of the distal lateral condyle after an awl was used to create the starting hole. Once this was introduced to nonabsorbable sutures were passed through the distal portion of the disrupted L UCL horizontal mattress pattern and were tightened with the arm in roughly 45 degrees of flexion.Once this was done the elbow was evaluated and found to have adequate reduction of the L UCL. 1 g ofvancomycin powder was then placed into the wound. The wounds were then irrigated, the elevated ERCB and EDC were then repaired back to their insertionsites with 0 Vicryl's. The deep subcutaneous tissues and the fascial layers were then closed with 0 Vicryl's in a simple interrupted fashion. The subcutaneous tissue was closed with 2-0 Vicryl in an interrupted fashion. The skin was closed with 3-0 nylon's in a vertical mattress pattern. The wound wasthen dressed with Xeroform, gauze, ABD and sterile web roll. The patient was then placed into a posterior slab splint with a strut on the lateral side. She was awakened and extubated and transferred tothe operative table. She was taken to the postoperative recovery unit having suffered no untoward events. was present and scrubbed for all critical portions of the case Infection Bundle used? No Number of fracture regions: 2 Periarticular fractures: Partial articular (type B) Diaphyseal fractures: NOT A DIAPHYSEAL FRACTURE Prep solutions applied PRIOR to final prep: Povidone-iodine in aqueous solution and Alcohol FINAL surgical prep solution: DuraPrep Was the fracture definitively fixed/managed during this operation? Yes Was the wound re-prepped during or after the case? None Type of closure for all wounds (select all that apply): Primary closure Was negative pressure wound VAC therapy applied, exchanged or removed? No Were local antibiotcs placed into the wound? Powder - vanco What was the deepest layer of tissue debrided? Bone Was irrigation solution used? No saline only Closed fracture characteristics: None Closed fracture bone loss: Bone missing or devascularized bone fragments, but still some contact between proximal and distal segments OPEN FRACTURES: If there is a wound, was the wound managed definitively during this operation? No- no wound management performed during this operation/no wound associated with fracture Open fracture Gustilo classification: NOT OPEN FRACTURE Open fracture skin management: NOT OPEN Open fracture muscle injury:NOT OPEN FRACTURE Open fracture arterial injury:NOT OPEN FRACTURE Open fracture contamination: NOT OPEN FRACTURE Open fracture bone:NOT OPEN FRACTURE Associated attestation - [facility] MD - 09/21/2020 1:28 PM EDT Attestation: Case Date: 09/21/2020 I was present and I participated during the entire procedure (does not need to include opening and closing). [facility] Ha MD 09/21/2020 documented in this encounter Plan of Treatment Upcoming Encounters Date Type Specialty Care Team Description 11/24/2021 Office Visit Neurology Gregg Lacy MD [place], [place] [address] (Wo rk) 04/06/2022 Appointment Radiology 04/06/2022 Office Visit Orthopaedics Wally Rouse MD [facility] ORTHOPAEDIC SURG [place], [place] [address] (Wo rk) documented as of this encounter Procedures Procedure Name Priority Date/Time Associated Comments Diagnosis LATERAL COLLATERAL Routine 09/21/2020 8:59 AM Closed bicondyla r LIGAMENT REPAIR,ELBOW EDT fracture of distal end of left humerus, initial encounter RADIAL HEAD, EXCISION Routine 09/21/2020 8:59 AM Closed bicond ylar EDT fracture of distal end of left humerus, initial encounter XR FLUORO NO RAD <1HR Routine 09/21/2020 8:51 AM Results for this - OR USE EDT procedure are i n the results section. LATERAL COLLATERAL 09/21/2020 7:34 AM Closed bicondyla r LIGAMENT REPAIR, ELBOW EDT fracture of distal (WRVU 9.16) end of left humerus, initial encounter RADIAL HEAD, EXCISION 09/21/2020 7:34 AM Closed bicond ylar (WRVU 6.42) EDT fracture of distal end of left humerus, initial encounter OPEN TREATMENT OF 09/21/2020 7:34 AM Closed bicondylar HUMERAL SUPRACONDYLAR EDT fracture of distal OR TRANSCONDYLAR end of left FRACTURE, INCLUDES humerus, initial INTERNAL FIXATION encounter WITHOUT INTERCONDYLAR EXTENSION (WRU 13.15) ORIF DISTAL HUMERUS Routine 09/21/2020 5:52 AM Closed bicondyl ar EDT fracture of distal end of left humerus, initial encounter documented in this encounter Results XR Fluoro No Rad <1Hr - OR Use (09/21/2020 8:51 AM EDT) Specimen (Source) Anatomical Location Collection Method / Collectio n Time Received Time / Laterality Volume Narrative RAD - 09/21/2020 8:51 AM EDT This exam is auto-finalizing. No interpr etation was done. [facility] Ha MD IMG FLUORO ORDERABLES Performing Organization Address City/State/ZIP Code Phon e Number [place], [place] documented in this encounter Visit Diagnoses Diagnosis Closed bicondylar fracture of distal end of left humerus, initial encounter Closed fracture of left distal humerus s /p ORIF [place] 09/21/20 Closed fracture of unspecified part of l ower end of humerus documented in this encounter Administered Medications Inactive Administered Medications - up to 3 most recent administrations Medication Order MAR Action Action Date Dose Rate Site acetaminophen (Tylenol) tablet Given 09/21/2020 6:16 AM EDT 1,00 0 mg 1,000 mg 1,000 mg, Oral, ONCE, 1 dose, On Sun09/21/20 at 0630, Administer with SIP of H2O only., Day of Surgery (Day of Procedure), Routine fentaNYL (PF) (50 mcg/mL) injection 50 m cg 50 mcg, Intravenous, EVERY 5 MIN PRN, St arting on Sun09/21/20 at 0612, Until Sun09/21/20 at 1333, Pain, or prior to injection of local anesthetic., Hold for respiratory rate less than 8 breaths per minute. (maxi mum dose 200 mcg), Day of Surgery (Day of Procedure), Routine HYDROmorphone (Dilaudid) (2 mg/mL) multi -dose injection solution 0.4-0.6 mg 0.4-0.6 mg, Intravenous, EVERY 10 MIN AZ N, Starting on Sun09/21/20 at 0927, Until Sun09/21/20 at 1333, Pain, Give 0.4 mg e very 10 minutes PRN for mild to moderate pain (1-5) Give 0.6 mg every 10 minutes PRN for modera te to severe pain (6-10). Hold for respiratory rate less than 10 p er minute. Maximum dose 4 mg over one hour, including OR administration. If multiple pain medications are ordered, start with HYDROmorphone or morphine and use fentaN YL for breakthrough pain., PACU Recovery, Routine lactated ringers infusion New Bag 09/21/2020 6:30 AM EDT 1,000 mLs 100 mL/hr 1,000 mL, at 100 mL/hr, Intravenous, CONTINUOUS, Starting on Sun09/21/20 at 0630, Until Sun09/21/20 at 1333, Day of Surgery (Day of Procedure) lidocaine (Xylocaine) 1% (10 mg/mL) inje ction 3 mg 3 mg (0.3 mL), Subcutaneous, ONCE PRN, 1 dose, Startin g on Sun09/21/20 at 0612, Until Sun09/21/20 at 133, for discomfor t with PIV insertion, Day of Surgery (Day of Procedure), Routine midazolam (pf) (Versed) (1 mg/mL) injection 1 Given 09/22/19 6:59 AM EDT 1 mg mg 1 mg, Intravenous, EVERY 5 MIN PRN, Starting on Sun09/21/20 at 0612, Until Sun09/21/20 at 133, Sleep, or prior to injection of local anesthetic, Hold for delirium/agitation. (Maximum dose 5 mg)., Day of Surgery (Day of Procedure), Routine Given 09/21/2020 6:55 AM EDT 1 mg naloxone (Narcan) (0.4 mg/mL) injection 0.04 mg 0.04 mg, Intravenous, EVERY 5 MIN PRN, 3 doses, Starting on Sun09/21/20 at 0927, Until Sun09/21/20 at 1333, Opioid Reversal, for respir atory rate less than 6 or unresponsive., May repeat every 5 minutes to increase respiratory rate. DO NOT exceed 0.12 mg total dose. Notify anesthesia immediate ly if administered., PACU Recovery, Routine ondansetron (pf) (Zofran) (2 mg/mL) inje ction 4 mg 4 mg, Intravenous, EVERY 30 MIN PRN, 2 doses, Starting on Sun09/21/20 at 0927, Until Sun09/21/20 at 1333, Nausea, Maximum total dose of 8 mg (including OR administration). If multiple antiemeti cs ordered, use ondansetron first and if ineffective use prochlorperazine second and if ineffective use promethazine, PACU Recovery sodium chloride 0.9 % (flush) (BD PosiFl ush Normal Saline 0.9) flush 5-20 mL 5-20 mL, Intravenous, EVERY 1 MIN PRN, S tarting on Sun09/21/20 at 0612, Until Sun09/21/20 at 1333, flush, Flush pertains t o all indwelling lines. Flush per protocol found in the job aid using the link provided on this m edication record., Day of Surgery (Day of Procedure), Routine documented in this encounter Active and Recently Administered Medications Times are shown in EDT. Scheduled Medication Order 09/19/2020 09/20/2020 09/21/2020 acetaminophen (Tylenol) tablet 1,000 mg (COMPLETED) 0616 (Given - Provider: Marga Perez, YUMIKO) 1,000 mg, Oral, ONCE, 1 dose, On 09/09 at 0630, Administer with SIP of H2O only., Day of Surgery (Day of Procedure), Routine Continuous Medication Order 09/19/2020 09/20/2020 09/21/2020 lactated ringers infusion 0630 ( New Bag - Provider: Marga Perez, YUMIKO) 1,000 mL, at 100 mL/hr, Intravenous, CON TINUOUS, Starting on Sun09/21/20 at 0630, Until Sun09/21/20 at 1333, Day of Surgery (Day of Procedure) PRN Medication Order 09/19/2020 09/20/2020 09/21/2020 fentaNYL (PF) (50 mcg/mL) injection 50 mcg 50 mcg, Intravenous, EVERY 5 MIN PRN, St arting on Sun09/21/20 at 0612, Until Sun09/21/20 at 1333, Pain, or prior to injection of local anesthetic., Hold for respiratory rate less than 8 breaths per nicki te. (maximum dose 200 mcg), Day of Surgery (Day of Procedure), R outine HYDROmorphone (Dilaudid) (2 mg/mL) multi-dose injection solution 0.4-0.6 mg 0.4-0.6 mg, Intravenous, EVERY 10 MIN AZ N, Starting on Sun09/21/20 at 0927, Until Sun09/21/20 at 1333, Pain, Give 0.4 mg every 10 minutes PRN for mild to moderate pain (1-5) Give 0.6 mg every 10 minutes PRN for moderate to severe pain (6-10). Hold for respiratory rate less than 10 per minute. Maximum dose 4 mg over one hour, including OR administration. If multiple pain medications are ordered, start with HYDROmorphone or morphine and use f entaNYL for breakthrough pain., PACU Recovery, Routine lidocaine (Xylocaine) 1% (10 mg/mL) injection 3 mg 3 mg (0.3 mL), Subcutaneous, ONCE PRN, 1 dose, Starting on Sun09/21/20 at 0612, Until Sun09/21/20 at 1333, for discomfort with PIV insertion, Day of Surgery (Day of Procedure), Routine midazolam (pf) (Versed) (1 mg/mL) injection 1 mg 0655 (Given - Provider: Marga Perez RN)0659 (Given - Provider: Magra Perez RN) 1 mg, Intravenous, EVERY 5 MIN PRN, Star ting on Sun09/21/20 at 0612, Until Sun09/21/20 at 1333, Sleep, or prior to injection of local anesthetic, Hold for delirium/agitation. (Maximum dose 5 mg)., Day of Surgery (Day of Procedure), Routine naloxone (Narcan) (0.4 mg/mL) injection 0.04 mg 0.04 mg, Intravenous, EVERY 5 MIN PRN, 3 doses, Starting on Sun09/21/20 at 0927, Until Sun09/21/20 at 1333, Opioid Reversal, for respiratory rate less than 6 or unresponsive., May repeat every 5 minutes to increase respiratory rate. DO NOT ex ceed 0.12 mg total dose. Notify anesthesia immediately if administered., PACU Recovery, Routine ondansetron (pf) (Zofran) (2 mg/mL) injection 4 mg 4 mg, Intravenous, EVERY 30 MIN PRN, 2 d oses, Starting on Sun09/21/20 at 0927, Until Sun09/21/20 at 1333, Nausea, Maximum total dose of 8 mg (including OR administration). If multiple antiemetics orde red, use ondansetron first and if ineffe ctive use prochlorperazine second and if ineffective use promethazine, PACU Recovery sodium chloride 0.9 % (flush) (BD PosiFlush Normal Saline 0.9) f lush 5-20 mL 5-20 mL, Intravenous, EVERY 1 MIN PRN, S tarting on Sun09/21/20 at 0612, Until Sun09/21/20 at 1333, flush, Flush pertains to all indwelling lines. Flush per protocol found in the job aid using the link p rovided on this medication record., Day of Surgery (Day of P rocedure), Routine vancomycin (Vancocin) injection (CANCELED) 0850 (Given - Provider: [facility] Ha MD) ONCE PRN, Starting on Sun09/21/20 at 085 0, Until Sun09/21/20 at 1333, Intra- Operative (Intra-Procedure), Routine documented in this encounter Care Teams Visual Journalist Relationship Specialty Start Date End Date Ekaterina Omer MD PCP - General General Internal Medicine 08/23/18 [address] [place] [address] documented as of this encounter
--- OUTSIDE RECORDS SUMMARY | 2021-10-13 15:51 | XMS_ITS | Encounter Summary ---
:1950 Author Organization [facility] [place] [address] Care Team Providers Name Role Phone Ekaterina Omer MD Primary Care Provider Reason for Visit Reason Onset Date Comments Medication Refill 09/28/2020 Encounter Details Date Type Department Care Team Description 09/28/2020 Refill Orthopaedics at [facility] Boogie Ambrocio, [facility] [place] [address] humerus with routine [phone] healing, unspec ified fracture morpho logy, subsequent enco unter Social History Tobacco Use Types Packs/Day Years Used Date Former Smoker Cigarettes 1 10 Quit: 05/10/18 73 Smokeless Tobacco: Never Used Alcohol Use Standard Drinks/Week Comments No 0 (1 standard drink = 0.6 oz pure alcoho l) Sex Assigned at Date Recorded Female 01/18/2021 7:28 AM EST documented as of this encounter Miscellaneous Notes Telephone Encounter - Boogie Gunter, A - 09/28/2020 3:37 PM EDT Images from the original note were not included. Medication Refill Request ?? Surgery/Injury/Provider: 09/21/20, Dr. Ha, OPEN TREATMENT OF HUMERAL SUPRACONDYLAR OR TRANSCONDYLAR FRACTURE, INCLUDES INTERNAL FIXATION WITHOUT INTERCONDYLAR EXTENSION (Left) ?? Medication being requested:Oxycodone 5mg ?? Query: Last refill or Original Rx: Seen within 30 days (if no, than when): 09/21/20 ?? Follow Up: 10/08/20 ?? How is this medication being used currently: 5mg every 5-6hrs Pain level: 6/10 ?? Bowel concerns: None Other pain medications used and how: Tylenol Yes ?? Medication Taper Plan: 1 tab every 6hrs or longer ?? Teaching done regarding: taking nonnarcotic pain medications, taking the least amount of opioid needed for the least amount of time for adequate pain management and tapering of opioids with verbalized understanding by the patient. ?? Requested Prescription to be sent electronically to [facility] [place], [place] (location). ?? Prescription prepped and pended for CHRISTOPHE Paniagua (provider) review. ? The patient knows how to contact orthopaedics if any further questions or concerns occur. documented in this encounter Plan of Treatment Upcoming Encounters Date Type Specialty Care Team Description 11/24/2021 Office Visit Neurology Gregg Lacy MD [place], [place] [address] (Wo rk) 04/06/2022 Appointment Radiology 04/06/2022 Office Visit Orthopaedics Wally Rouse MD [facility] ORTHOPAEDIC SURG [place], [place] [address] (Wo rk) documented as of this encounter Visit Diagnoses Diagnosis Closed fracture of distal end of left hu merus with routine healing, unspecified fracture morphology, subsequent encounte r documented in this encounter Care Teams Rental Counter Clerk Relationship Specialty Start Date End Date Ekaterina Omer MD PCP - General General Internal Medicine 08/23/18 [address] [place] [address] documented as of this encounter
--- OUTSIDE RECORDS SUMMARY | 2021-10-13 15:51 | XMS_ITS | Encounter Summary ---
:1950 Author Organization [facility] [place] [address] Care Team Providers Name Role Phone Ekaterina Omer MD Primary Care Provider Encounter Details Date Type Department Care Team Description 10/05/2020 Telephone Anesthesiology Mary Ellen Gan MD [facility] [place] [address] ANESTHESIOLOGY DEPT [phone] [place], [place] [address] (Wo rk) Social History Tobacco Use Types Packs/Day Years Used Date Former Smoker Cigarettes 1 10 Quit: 05/10/18 73 Smokeless Tobacco: Never Used Alcohol Use Standard Drinks/Week Comments No 0 (1 standard drink = 0.6 oz pure alcoho l) Sex Assigned at Date Recorded Female 01/18/2021 7:28 AM EST documented as of this encounter Progress Notes Mary Ellen Gan MD - 10/05/2020 9:15 AM EDT REGIONAL NERVE BLOCK FOLLOW-UP I attempted to contact the patient via telephone regarding resolution of nerve block. I was unable to reach the patient. I will follow-up again to ensure resolution of block. If there are any questions or concerns regarding the nerve block, do not hesitate to contact the regional anesthesia team documented in this encounter Plan of Treatment Upcoming Encounters Date Type Specialty Care Team Description 11/24/2021 Office Visit Neurology Gregg Lacy MD [place], [place] [address] (Wo rk) 04/06/2022 Appointment Radiology 04/06/2022 Office Visit Orthopaedics Wally Rouse MD [facility] ORTHOPAEDIC SURG [place], [place] [address] (Wo rk) documented as of this encounter Visit Diagnoses Not on filedocumented in this encounter Care Teams Rubber Mill Operator Relationship Specialty Start Date End Date Ekaterina Omer MD PCP - General General Internal Medicine 08/23/18 [address] [place] [address] documented as of this encounter
--- OUTSIDE RECORDS SUMMARY | 2021-10-13 15:51 | XMS_ITS | Encounter Summary ---
:1950 Author Organization [facility] [place] [address] Care Team Providers Name Role Phone Ekaterina Omer MD Primary Care Provider Reason for Visit Reason Onset Date Comments Appointment 11/19/2020 Encounter Details Date Type Department Care Team Description 11/19/2020 Telephone [place] [facility] [place]ally [place] [address] [address] [phone] ORTHOPAEDIC SURG [place], [place] [address] (Wo rk) Social History Tobacco Use Types Packs/Day Years Used Date Former Smoker Cigarettes 1 10 Quit: 05/10/18 73 Smokeless Tobacco: Never Used Alcohol Use Standard Drinks/Week Comments No 0 (1 standard drink = 0.6 oz pure alcoho l) Sex Assigned at Date Recorded Female 01/18/2021 7:28 AM EST documented as of this encounter Miscellaneous Notes Telephone Encounter - Karlene Horton - 11/23/2020 9:19 AM EDT Spoke to Patient and verified appointment change with her Telephone Encounter - Michelle George - 11/19/2020 3:47 PM EDT Called X1 and LVM please cancel appointment with Dona Mary on 12/20/[address] schedule with Dr Rouse to discuss a total elbow arthroplasty. Per Dr Rouse no images are needed. documented in this encounter Plan of Treatment Upcoming Encounters Date Type Specialty Care Team Description 11/24/2021 Office Visit Neurology Gregg Lacy MD [place], [place] [address] (Wo rk) 04/06/2022 Appointment Radiology 04/06/2022 Office Visit Orthopaedics Wally Rouse MD [facility] ORTHOPAEDIC SURG [place], [place] [address] (Wo rk) documented as of this encounter Visit Diagnoses Not on filedocumented in this encounter Care Teams Local Operator Relationship Specialty Start Date End Date Ekaterina Omer MD PCP - General General Internal Medicine 08/23/18 [address] [place] [address] documented as of this encounter
--- OUTSIDE RECORDS SUMMARY | 2021-10-13 15:51 | XMS_ITS | Encounter Summary ---
:1950 Author Organization [facility] [place] [address] Care Team Providers Name Role Phone Ekaterina Omer MD Primary Care Provider Reason for Visit Reason Onset Date Comments Medication Refill 10/13/2020 Encounter Details Date Type Department Care Team Description 10/13/2020 Refill Orthopaedics at [facility] Dona Mary, Closed fracture of One [facility] [place] [address] [facility] humerus with routine [phone] DR sims, unspecified ORTHOPAEDIC SURG [place] fracture morphology, [place] [id number] subsequent encounter [phone] (Wo rk) (Primary Dx) Social History Tobacco Use Types Packs/Day Years Used Date Former Smoker Cigarettes 1 10 Quit: 05/10/18 73 Smokeless Tobacco: Never Used Alcohol Use Standard Drinks/Week Comments No 0 (1 standard drink = 0.6 oz pure alcoho l) Sex Assigned at Date Recorded Female 01/18/2021 7:28 AM EST documented as of this encounter Miscellaneous Notes Telephone Encounter - [facility] Tay[facility] - 10/13/2020 10:14 AM EDT Images from the original note were not included. Medication Refill Request Surgery/Injury/Provider: 09/21/20 OPEN TREATMENT OF HUMERAL SUPRACONDYLAR OR TRANSCONDYLAR FRACTURE, INCLUDES INTERNAL FIXATION WITHOUT INTERCONDYLAR EXTENSION ??(Left) Gitajn ?? Medication being requested:Oxycodone 5mg Query: Last refill or Original Rx: Seen within 30 days (if no, than when): yes Follow Up: 11/08/20 How is this medication being used currently: 1-2x daily prn Pain level: 5-6 (1-2 after taking oxycodone) Bowel concerns: none Other pain medications used and how: Tylenol Yes Gabapentin No Naproxen No OTHER n/a Medication Taper Plan: 5mg 1x daily prn Teaching done regarding: taking nonnarcotic pain medications, taking the least amount of opioid needed for the least amount of time for adequate pain management and tapering of opioids with verbalized understanding by the patient. Requested Prescription to be sent electronically to [facility] (location). Prescription prepped and pended for Usman (provider) review. The patient knows how to contact orthopaedics if any further questions or concerns occur. documented in this encounter Plan of Treatment Upcoming Encounters Date Type Specialty Care Team Description 11/24/2021 Office Visit Neurology Gregg Lacy MD [place], [place] [address] (Wo rk) 04/06/2022 Appointment Radiology 04/06/2022 Office Visit Orthopaedics Wally Rouse MD [facility] ORTHOPAEDIC SURG [place], [place] [address] (Wo rk) documented as of this encounter Visit Diagnoses Diagnosis Closed fracture of distal end of left hu merus with routine healing, unspecified fracture morphology, subsequent encounte r - Primary documented in this encounter Care Teams Retail Greeting Card Merchandiser Relationship Specialty Start Date End Date Ekaterina Omer MD PCP - General General Internal Medicine 08/23/18 [address] [place] [address] documented as of this encounter
--- OUTSIDE RECORDS SUMMARY | 2021-10-13 15:51 | XMS_ITS | Encounter Summary ---
:1950 Author Organization [facility] [place] [address] Care Team Providers Name Role Phone Ekaterina Omer MD Primary Care Provider Encounter Details Date Type Department Care Team Description 11/24/2020 Hospital Encounter Same Day Program at Jimenez Jones MD [place], [place] [address] [place] [address] [phone] Social History Tobacco Use Types Packs/Day Years [...] Sign Reading Time Taken Comments Blood Pressure 119/63 11/24/2020 10:45 AM EDT Pulse 57 11/24/2020 6:07 AM EDT Temperature 36.5 ??C (97.7 ??F) 11/24/2020 9:26 AM EDT Respiratory Rate 16 11/24/2020 10:15 AM EDT Oxygen Saturation 93% 11/24/2020 10:45 AM EDT Inhaled Oxygen Concentration - - [...] Reconstructive Surgery Department of Obstetrics & [place] [address] phone #: fax#: [facility] documented in this encounter Medications at [...] Take 1 tablet by 6 tablet 0 11/24/ 021 12/01/2020 5 mg Tablet mouth every 6 hours as needed for Pain. acetaminophen (Tylenol) Take 2 tablets by 60 tablet 0 11/2412/01/2020 325 mg Tablet mouth every 6 hours as needed for Pain. oxyCODONE (Roxicodone) Take 1 tablet by 10 tablet 0 10/14/ 021 12/01/2020 5 mg TabletIndications: mouth daily as needed Closed fracture of for Pain. distal end of left humerus with routine healing, unspecified fracture morphology, subsequent encounter senna-docusate Take 1 tablet by 60 tablet 0 09/21/2020/3 03/2021 (Pericolace) 8.6-50 mg mouth daily. Tablet acetaminophen [...] ?? Mild intermittant ??? Cataract ? Diverticulitis 2004 ??? ENT disease 2009 ?? tinnitus ??? GERD (gastroesophageal reflux disease) ? Hypothyroid ? Mental or behavioral problem 1999 ?? depression ??? Morbid obesity ? Musculoskeletal disease 1999 ?? 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 Pulmonary embolism 2011 ??? Pulmonary nodules ? Imaging consistent with interpulmonary lymph nodes no further follow-up required 2017 ??? Urinary disorder 1985 ?? bladder infections ??? Varicose veins of left lower extremities ? Past Surgical History Past Surgical History: Procedure Laterality Date ??? CYSTOCELE REPAIR 1994 with rectocele repair ??? HYSTERECTOMY 1981 supracervical ??? PRO COLONOSCOPY, DIAGNOSTIC N/A 12/24/2017 COLONOSCOPY, DIAGNOSTIC performed by Caleb Tineo MD at [facility] ENDOSCOPY ??? PRO EXCISE EXCESS SKIN TISSUE, ABDOMEN N/A 03/06/2014 ABDOMINOPLASTY performed by Marcos Vance MD at [facility] MAIN OR ??? PRO OPEN TX HUMERAL SUPRACONDYLAR FRACTURE W/O XTN Left 09/21/2020 OPEN TREATMENT OF HUMERAL SUPRACONDYLAR OR TRANSCONDYLAR FRACTURE, INCLUDES INTERNAL FIXATION WITHOUT INTERCONDYLAR EXTENSION (WRVU 13.15) performed by Nimco Ha MD at [facility] MAIN OR ??? PRO REELBOW LAT LIGMNT W/TISS Left 09/21/2020 LATERAL COLLATERAL LIGAMENT REPAIR, ELBOW (WRVU 9.16) performed by Nimco Ha MD at [facility] OR ??? PRO REMOVAL OF HEAD OF RADIUS Left 09/21/2020 RADIAL HEAD, EXCISION (WRVU 6.42) performed by Nimco Ha MD at [facility] OR ??? PRO UNLISTED PROCEDURE, MUSCULOSKELETAL SYSTEM, [...] History Narrative ?? Ms. Cummings lives in [place], [place] with her . 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 She has prior history of radon exposure but this is since been mitigated in [facility]. She has not had significant occupational exposures to dusts or fumes although there is an incid ental exposures or work. She has 2 adult children. ? She and her frequently winter in [place]. She enjoys watching TV and biking. ? [...] 24 hrs: Temp Pulse Resp BP SpO2 09/15/21 0607 36.2 ??C (97.2 ??F) 57 18 153/71 96 % ?? A project lead is present for the examination not applicable [...] therapy for her elbow. - Preferred pharmacy: [facility] in [place], [place] - Discharge plan: Same day discharge [...] her history from when she saw Saida Jacobon on 09/08/20. ?? BMI: 41.63 Pelvic Medicine Evaluation - taken on 07/16/[address] Jones Pelvic Exam: Cough stress test (empty supine): neg External Genitalia: Vulva, [place]'s and [place]th[place] glands normal, urethra without tenderness [...] ?? -1 Bp -1 D -6 History Harness Placer Hx: -Supracervical hysterectomy -A/P vaginal repair Past [...] DIAGNOSTIC performed by Caleb Tineo MD at [facility] ENDOSCOPY ??? PRO EXCISE EXCESS SKIN TISSUE, ABDOMEN N/A 03/06/2014 ABDOMINOPLASTY performed by Marcos Vance MD at [facility] MAIN OR ??? PRO OPEN TX HUMERAL SUPRACONDYLAR FRACTURE W/O XTN Left 09/21/2020 OPEN TREATMENT OF HUMERAL SUPRACONDYLAR OR TRANSCONDYLAR FRACTURE, INCLUDES INTERNAL FIXATION WITHOUT INTERCONDYLAR EXTENSION (WRVU 13.15) performed by Nimco Ha MD at [facility] MAIN OR ??? PRO REELBOW LAT LIGMNT W/TISS Left 09/21/2020 LATERAL COLLATERAL LIGAMENT REPAIR, ELBOW (WRVU 9.16) performed by Nimco Ha MD at [facility] MAIN OR ??? PRO REMOVAL OF HEAD OF RADIUS Left 09/21/2020 RADIAL HEAD, EXCISION (WRVU 6.42) performed by Nimco Ha MD at [facility] MAIN OR ??? PRO UNLISTED [...] risk (2 pts) ??? Preferred pharmacy is [facility] in [place], [place] ??? Returning in 1-2 weeks for second stage of procedure (implant generator) if urine/fecal incontinence improves by >= 50% ??? Pain Management: acetaminophen, AVOID ibuprofen given bleeding risk, possible oxycodone for breakthrough depending on post-operative pain Adria Rea, MS4 [facility] Female Pelvic Medicine and Reconstructive Surgery Pager [phone] documented in this encounter Miscellaneous Notes Op Note - William Jones MD - 11/24/2020 8:06 AM EDT [facility] Operative Note Patient Name: Kiya Cummings : [id number] MR#: [id number] Case Date: 11/24/2020 Surgeon: Surgeon(s) and Role: [...] utilizing the test stimulation cable and Verify??? video game programmer. The right side showed no response [...] 11/24/2021 Office Visit Neurology Gregg Lacy MD [place], [place] [address] (Wo rk) 04/06/2022 Appointment Radiology 04/06/2022 Office Visit Orthopaedics Wally Rouse MD [facility] ORTHOPAEDIC SURG [place], [place] [address] (Wo rk) documented as of [...] Signature POC Glucose 97 65 - 199 [facility] mg/dL [facility] Comment: Supplemental ranges: <140 mg/dL before meals <180 mg/dL all other times of the day Specimen Anatomical Collection Method Collection Time Receive d Time (Source) Location / / Volume Laterality Blood 11/24/2020 6:21 AM 6:21 EDT AM EDT William Jones MD POINT OF CARE TEST ORDERABLE S Performing Organization Address City/State/[place] [address] SCAN DOC: IMPLANTABLE DEVICES [...] Surgery (Day of Procedure), Routine HYDROmorphone (Dilaudid) (0.2 mg/1 mL) Given [...] 1 dose, On Sun11/24/20 at 0945, Routine oxyCODONE (Roxicodone) tablet 5 mg Given [...] 11/24/2020 acetaminophen (Tylenol) tablet 1,000 mg (COMPLETED) 0634 (Given - Provider: Donna Ledesma RN) 1,000 [...] Sun at 0630, Administer over 30 Minutes, Bumboater to OR Infuse over 30 minutes. Total [...] e oxyCODONE (Roxicodone) tablet 5 mg (COMPLETED) 59 (Given - Provider: Agnes Wilson RN) 5 mg, Oral, ONCE, 1 dose, On Sun11/24/20 at 1000, Routine phenazopyridine (Pyridium) tablet 200 mg (COMPLETED) 0634 (Given - Provider: Donna Ledesma RN) 200 mg (rounded from 190 mg), [...] Routine documented in this encounter Care Teams Accounts Payable Specialist Relationship Specialty Start Date End Date Ekaterina Omer MD PCP - General General Internal Medicine 08/23/18 [address] [place] [address] documented as of this encounter
--- OUTSIDE RECORDS SUMMARY | 2021-10-13 15:51 | XMS_ITS | Encounter Summary ---
:1950 Author Organization [facility] [place] [address] Care Team Providers Name Role Phone Ekaterina Omer MD Primary Care Provider Reason for Visit Consultation (Urgent) - Closed Specialty Diagnoses / Procedures Referred By Contact Refer red To Contact Orthopaedics Diagnoses severely comminuted distal humerus and left radial head fx-DOI-09/08/20 Daly Montano MD [facility] Orthopaedics [address] [place], [place] [address] [place] [address] Fax: Referral ID Status Reason Start Date Expiration Date Visits V isits Requested Authorized [id number] Closed Consult, Test 09/09/2020 09/09/2021 [facility] PCP Updated and/or Approved Encounter Details Date Type Department Care Team Description 09/20/2020 TH Visit Orthopaedics at [facility] Dona Mary Closed bicondylar (TeleHealth) [facility] CHRISTOPHE Gan fracture of distal [address] [facility] end of left humerus, [place] [address]ENTER initial encounter [phone] ORTHOPAEDIC SURGERY [place], [place] [address] Social History Tobacco Use Types Packs/Day Years Used Date Former Smoker Cigarettes 1 10 Quit: 05/10/18 73 Smokeless Tobacco: Never Used Alcohol Use Standard Drinks/Week Comments No 0 (1 standard drink = 0.6 oz pure alcoho l) Sex Assigned at Date Recorded Female 01/18/2021 7:28 AM EST documented as of this encounter Progress Notes Dona Mary PA - 09/20/2020 8:30 AM EDT Images from the original note were not included. PATIENT NAME: Kiya Cummings AGE: 70 y.o. MR#: [id number] DATE OF VISIT: 09/20/2020 CHIEF COMPLAINT: Wound check, RIGHT hand post IV placement HISTORY OF PRESENT ILLNESS: Ms. Cummings is a 70 y.o. female who has a phone visit today for evaluation of the RIGHT hand. She underwent a left distal humerus fracture which will be going in for ORIF tomorrow. Post admission to [facility], IV right dorsal hand. Erythema surrounding the area afer IV removed. She was last seen by Dr. Dunne on 09/15/20. Since this time she has had improvement in the erythema. She has mild tenderness to palpation over this area. She feels things are going well. Past medical history: Patient Active Problem List Diagnosis Date Noted ??? Phlebitis after infusion 09/15/2020 ??? Mild [...] 06/25/2014 ??? Rectus diastasis 10/01/2013 Medications: ??? cephALEXin (KEFLEX) 500 mg Tablet ??? acetaminophen (Tylenol) 500 mg Tablet ??? donepeziL (Aricept) 10 mg Tablet ??? amLODIPine (Norvasc) 2.5 mg Tablet ??? atorvastatin (Lipitor) 20 mg Tablet ??? buPROPion XL (Wellbutrin XL) 150 mg Tablet Extended Release 24 hr ??? metFORMIN (Glucophage) 500 mg Tablet ??? omeprazole (PriLOSEC) 40 mg Capsule, Delayed Release(E.C.) ??? UNABLE TO FIND ??? escitalopram (LEXAPRO) 10 mg Tablet ??? [...] ??? Ciprofloxacin ??? Macrodantin [Nitrofurantoin Macrocrystal] ??? Pramipexole Social history: Social History Tobacco Use ??? Smoking status: Former Smoker Packs/day: 1.00 Years: 10.00 Pack years: 10.00 Types: Cigarettes Quit date: 05/10/1972 Years since quittin.3 ??? Smokeless tobacco: Never Used Substance Use Topics ??? Alcohol use: No Review of systems: No chest pain or shortness of breath No fevers, night sweats or chills Much less erythema than prior image. Assessment and plan:: 70 y.o. year-old female with improving erythema over the RIGHT hand. Plan discussed in conjunction with Dr. Ha. We had a long discussion regarding the nature of Kiya Cummings's chief complaint. The photographs that were sent in today look to be improving. She reports only mild tenderness to palpation over this area. I have discussed this with Dr. Ha who feels that this should not hold up the surgery scheduled for tomorrow of the LEFT distal humerus. This plan was discussed with the patient and they are in agreement. All of the patient's questions were answered. The patient understand to contact us if they have any other questions or concerns. FU: Surgery tomorrow of the LEFT distal humerus. Dona Mary PA-C The above dictation was made with voice recogonition software documented in this encounter Plan of Treatment Upcoming Encounters Date Type Specialty Care Team Description 11/24/2021 Office Visit Neurology Gregg Lacy MD [place], [place] [address] (Wo rk) 04/06/2022 Appointment Radiology 04/06/2022 Office Visit Orthopaedics Wally Rouse MD [facility] ORTHOPAEDIC SURG [place], [place] [address] (Wo rk) documented as of this encounter Visit Diagnoses Diagnosis Closed bicondylar fracture of distal end of left humerus, initial encounter documented in this encounter Care Teams E/M Engineer Relationship Specialty Start Date End Date Ekaterina Omer MD PCP - General General Internal Medicine 08/23/[address] [address] documented as of this encounter
--- OUTSIDE RECORDS SUMMARY | 2021-10-13 15:51 | XMS_ITS | Encounter Summary ---
:1950 Author Organization [facility] [place] [address] Care Team Providers Name Role Phone Ekaterina Omer MD Primary Care Provider Encounter Details Date Type Department Care Team Description 11/24/2020 Anesthesia Event Main Operating Room Shama Bello MD [facility] [place] [address] [facility] Elmer Tre Mccullough MD [facility] [place] [address] [place] [address] Anesthesia Record Procedure Summary Procedure Name Responsible Anesthesia Start Anesthesia Stop Anesthesiologist Time Time OPEN IMPLANTATION SACRAL Shama Bourgeois MD 11/24/20 0739 0925 NEUROSTIMULATOR ELECTRODE (WRVU 12.2) (N/A Back) Events Date Time Event Comment 11/24/2020 0713 0739 AN Verify 0739 Start 0739 An Start Data 0748 Anesthesia Ready 0805 Procedure Start 0809 Quick Note Changed CO2 abso rber 0913 Procedure Stop 0915 an stop data 0921 Recovery or ICU Handoff Patient care was transferred to the destination unit staff after review of the patient's medica l history, current anesthetic/surgi cynthia status and plan, according to the Provider Handoff Checklist. 924 Stop Name Total fentaNYL 100 mcg Propofol 190 mg Propofol INF 340.05 mg Dexmedetomidine 28 mcg ceFAZolin (Ancef) 2 g in dextrose 5% 100 mL (2 x 1 g/5 0 mL premix bags) 2 g infusion Lactated Ringers 500 mL Agents Name O2 Air N2O O2 Auxiliary Flowmeter 1 Blood No blood administrations on file. Lines, Drains, and Airways Type Details Placement Removal Incision 09/21/20; Left; elbow 09/21/20 0000 by Tangela Zafar RN Incision 11/24/20; 0825; Left, 11/24/20 0825 by Kamlehs, lower; back Jeannie Cruz RN Incision 11/24/20; 0826; lower, 11/24/20 0826 by Kamlesh, midline; back Jeannie Cruz RN PIV 11/24/20; 0739; dorsal arch 11/24/20 0739 by Rachel salgado, 11/24/20 1115 by Steve vein (top of hand), right; MD Andrew Grove RN [id number] catheter system; Anatomical Landmarks; 20 gauge; Christelle SHEETS; no longer indicated, removed per policy/procedure, site care per policy/procedure, catheter/device intact; 11/24/20; 1115 documented in this encounter Social History Tobacco Use Types Packs/Day Years Used Date Former Smoker Cigarettes 1 10 Quit: 05/10/18 73 Smokeless Tobacco: Never Used Alcohol Use Standard Drinks/Week Comments No 0 (1 standard drink = 0.6 oz pure alcoho l) Sex Assigned at Date Recorded Female 01/18/2021 7:28 AM EST documented as of this encounter OR Notes Anesthesia Postprocedure Evaluation - Nathalie Grajeda MD - 11/24/2020 9:33 AM EDT Department of Anesthesiology Post-procedure Note Patient: Kiya Cummings Procedure Summary Date: 11/24/20 Room / Location: [facility] OR [address] [place] [address] MAIN OR Anesthesia Start: 738 Anesthesia Stop: 924 Procedures: INCISION & IMPLANT SACRAL NEUROSTIMULATOR ELECTRODE (WRVU 12.2) (N/A Back) ELEC ANALYSIS IMPL NEUROSTIM\PULSE GEN SYS-COMPLEX (WRVU 0.8) (N/A Back) MODIFIER,NEUROSTIMULATOR,RECHARGEABLE (N/A ) FLUOROSCOPY (WRVU 0.17) (N/A ) Diagnosis: (Refractory urge urinary incontinence) Surgeons: William Jones MD Responsible Provider: Shama Bourgeois MD Anesthesia Type: MAC ASA Status: 3 All Anesthesia Providers: Anesthesiologist: Shama Bourgeois MD Hand Inserter Operator: Nathalie Grajeda MD Vitals Value Taken Time BP 132/64 11/24/20 0930 Temp 36.5 ??C (97.7 ??F) 11/24/20 0926 Pulse Resp SpO2 96 % 11/24/20 0932 Pain Level Vitals shown include unvalidated device data. Patient Location: PACU/[facility] Level of Consciousness: Awake and Alert Pain Management: Pain Being Addressed PONV: None Cardiovascular Status: At Baseline and Hemodynamically Stable Respiratory Status: At Baseline and Supplemental O2 (NC or FM) Postoperative Fluid Status: Intravascular EUvolemia Possible Anesthetic Complications: NONE apparent at time of evaluation Final Primary Anesthesia Type: MAC (The anesthetic type performed was the same as planned.) Comments: Nathalie Grajeda MD Anesthesia Postprocedure Evaluation - Shama Bourgeois MD - 11/24/2020 9:33 AM EDT Department of Anesthesiology Post-procedure Note Patient: Kiya Cummings Procedure Summary Date: 11/24/20 Room / Location: [address] MAIN OR Anesthesia Start: 738 Anesthesia Stop: 924 Procedures: INCISION & IMPLANT SACRAL NEUROSTIMULATOR ELECTRODE (WRVU 12.2) (N/A Back) ELEC ANALYSIS IMPL NEUROSTIM\PULSE GEN SYS-COMPLEX (WRVU 0.8) (N/A Back) MODIFIER,NEUROSTIMULATOR,RECHARGEABLE (N/A ) FLUOROSCOPY (WRVU 0.17) (N/A ) Diagnosis: (Refractory urge urinary incontinence) Surgeons: William Jones MD Responsible Provider: Shama Bourgeois MD Anesthesia Type: MAC ASA Status: 3 All Anesthesia Providers: Anesthesiologist: Shama Bourgeois MD Hand Inserter Operator: Nathalie Grajeda MD Vitals Value Taken Time BP 132/64 11/24/20 0930 Temp 36.5 ??C (97.7 ??F) 11/24/20 0926 Pulse Resp SpO2 96 % 11/24/20 0932 Pain Level Vitals shown include unvalidated device data. Patient Location: PACU/[facility] Level of Consciousness: Awake and Alert Pain Management: Pain Being Addressed PONV: None Cardiovascular Status: At Baseline and Hemodynamically Stable Respiratory Status: Supplemental O2 (NC or FM) and Stable Respiratory Status Postoperative Fluid Status: Intravascular EUvolemia Possible Anesthetic Complications: NONE apparent at time of evaluation Final Primary Anesthesia Type: General (The anesthetic type performed was the same as planned.) Comments: Complains of left shoulder pain. Toradol ordered, IV hydromorphone and PO oxycodone available. Otherwise doing very well. Shama Bourgeois MD Attending Anesthesiologist Pager [phone] 11/24/20 9:33 AM Anesthesia Preprocedure Evaluation - Shama Bourgeois MD - 11/09/2020 1:38 PM EDT Images from the original note were not included. Pre-Anesthesia Evaluation for: Kiya Cummings a 70 y.o. female. Procedure(s): INCISION & IMPLANT SACRAL NEUROSTIMULATOR ELECTRODE (WRVU 12.2) ELEC ANALYSIS IMPL NEUROSTIM\PULSE GEN SYS-COMPLEX (WRVU 0.8) MODIFIER,NEUROSTIMULATOR,RECHARGEABLE Patient Active Problem List Diagnosis ??? Closed [...] DIAGNOSTIC performed by Caleb Tineo MD at [facility] ENDOSCOPY ??? PRO EXCISE EXCESS SKIN TISSUE, ABDOMEN N/A 03/06/2014 ABDOMINOPLASTY performed by Marcos Vance MD at [facility] MAIN OR ??? PRO OPEN TX HUMERAL SUPRACONDYLAR FRACTURE W/O XTN Left 09/21/2020 OPEN TREATMENT OF HUMERAL SUPRACONDYLAR OR TRANSCONDYLAR FRACTURE, INCLUDES INTERNAL FIXATION WITHOUT INTERCONDYLAR EXTENSION (WRVU 13.15) performed by Nimco Ha MD at [facility] MAIN OR ??? PRO REELBOW LAT LIGMNT W/TISS Left 09/21/2020 LATERAL COLLATERAL LIGAMENT REPAIR, ELBOW (WRVU 9.16) performed by Nimco Ha MD at [facility] MAIN OR ??? PRO REMOVAL OF HEAD OF RADIUS Left 09/21/2020 RADIAL HEAD, EXCISION (WRVU 6.42) performed by Nimco Ha MD at [facility] MAIN OR ??? PRO UNLISTED PROCEDURE, MUSCULOSKELETAL SYSTEM, GENERAL both shouloders rotater cuff ??? VASCULAR SURGERY 1989 varicose veins both legs Social History Tobacco Use ??? Smoking status: [...] Physical Exam: Preprocedure Vitals Current as of 11/09/20 1338 No BP, pulse, respiration, SpO2, or temperature recorded. Height: 157.5 cm (5' 2) (07/16/20) Weight: 105.2 kg (232 lb) (07/16/20) BMI: 42.43 IBW: 50.1 kg (110 lb 7.8 oz) Airway Assessment: Mallampati: II TM distance: >3 FB Neck ROM: full Cardiovascular Assessment: Rhythm: regular Rate: normal Pulmonary Assessment: unlabored breathing Dental Assessment: Misc Assessment: IV access: Peripheral line Last Filed Perioperative Cognitive Screening None Anesthesia Plan: ASA 3 MAC, with a(n) intravenous induction Patient interviewed and examined.. Kiya Cummings is a 70 yo woman with refractory urge urinary incontinence presenting for sacral neurostimulator electrode implant Chart and labs reviewed; PMH significant for asthma (very mild, never uses inhaler), hypothyroid, depression, obesity, LEONARD (bipap), DM2, hx of remote PE (takes eliquis, last 11/22)) and HTN (lisinopril last yesterday) Mild cognitive impairment/mild dementia Recently had left elbow surgery, been taking oxycodone twice weekly with PT Exercise tolerance about 4 mets Gr1 with Mac3 2013 Appropriately NPO Assessment/Plan: ASA 3 MAC/Sedation; routine monitors Will require careful positioning of left arm All patient questions answered and anesthesia consent obtained with discussion of indications, benefits, risks, and alternatives. Shama Bourgeois MD Attending Anesthesiologist Pager [phone] 11/24/20 7:09 AM Region - Other Informed Consent: Anesthetic plan and risks discussed with patient and spouse. Plan discussed with resident and attending. Anesthesia Screening documented in this encounter Plan of Treatment Upcoming Encounters Date Type Specialty Care Team Description 11/24/2021 Office Visit Neurology Gregg Lacy MD [place], [place] [address] (Wo rk) 04/06/2022 Appointment Radiology 04/06/2022 Office Visit Orthopaedics Wally Rouse MD [facility] ORTHOPAEDIC SUR[place], [place] [address] (Wo rk) documented as of this encounter Visit Diagnoses Not on filedocumented in this encounter Administered Medications Inactive Administered Medications - up to 3 most recent administrations Medication Order MAR Action Action Date Dose Rate Site ceFAZolin (Ancef) 2 g in dextrose 5% Given 11/24/2020 7:53 AM ED T 2 g 100 mL (2 x 1 g/50 mL premix bags) infusion 2 g, Intravenous, ONCE, 1 dose, On Sun11/24/20 at 0630, Administer over 30 Minutes, Core Machine Operator to OR Infuse over 30 minutes. Total dose of ceFAZolin 2 grams, administered using two ceFAZolin 1g/50mL IV bags. Infuse each ceFAZolin 1g/50mL bag over 30 minutes (100 ml/hr) for total infusion time of 60 minutes. On the MAR, document administration of first bag using New Bag (1 of 2) MAR action for dose of 1g. On the MAR, document administration of second bag using Next Bag (2 of 2) MAR action for dose of 1g (resulting in total dose of 2g)., Day of Surgery (Day of Procedure), Indication for (Active or Suspected): Prophylaxis dexmedetomidine (Precedex) (4 mcg/mL) bolus Given 11/24/2020 8:2 4 AM EDT 4 mcg injection (Anesthsia) Intravenous, PRN, Starting on Sun11/24/20 at 0752, Until Sun11/24/20 at 0932, Anesthesia Intra-op, Routine Given 11/24/2020 7:56 AM EDT 8 mcg Given 11/24/2020 7:52 AM EDT 8 mcg fentaNYL (pf) (50 mcg/mL) multi-dose Given 11/24/2020 8:28 AM ED T 50 mcg injection Intravenous, PRN, Starting on Sun11/24/20 at 0803, Until Sun11/24/20 at 0932, Anesthesia Intra-op, Routine Given 11/24/2020 8:22 AM EDT 25 mcg Given 11/24/2020 8:03 AM EDT 25 mcg lactated ringers infusion New Bag 11/24/2020 7:39 AM EDT Intravenous, CONTINUOUS PRN, Starting on Sun11/24/20 at 0739, Until Sun11/24/20 at 0932, Anesthesia Intra-op propofoL (Diprivan) 10 mg/mL bolus injection Given 9:00 AM EDT 40 mg (Anesthesia) Intravenous, PRN, Starting on Sun11/24/20 at 0824, Until Sun11/24/20 at 0932, Anesthesia Intra-op Given 11/24/2020 8:54 AM EDT 30 mg Given 11/24/2020 8:51 AM EDT 30 mg propofoL (Diprivan) infusion Rate/Dose 11/24/2020 8:49 15 mcg/kg/min 9.594 Intravenous, CONTINUOUS PRN, Change AM EDT mL/hr Starting on Sun11/24/20 at 0746, Until Sun11/24/20 at 0932, Anesthesia Intra-op, Routine Rate/Dose Change 11/24/2020 8:48 AM EDT 25 mcg/kg/min 15.99 mL/hr Rate/Dose Change 11/24/2020 8:24 AM EDT 50 mcg/kg/min 31.98 mL/hr documented in this encounter Care Teams Union Contract Representative Relationship Specialty Start Date End Date Ekaterina Omer MD PCP - General General Internal Medicine 08/23/18 [address] [place] [address] documented as of this encounter
--- OUTSIDE RECORDS SUMMARY | 2021-10-13 15:51 | XMS_ITS | Encounter Summary ---
:1950 Author Organization [facility] [address] Care Team Providers Name Role Phone Ekaterina Omer MD Primary Care Provider Reason for Referral Diagnostic Test (Routine) - Closed Specialty Diagnoses / Procedures Referred By Contact Refer red To Contact Radiology Diagnoses Closed bicondylar fracture of distal end of left humerus, initial encounter Dona Mary PA [facility] Rad Ct Scan Procedures CT Elbow wo Contrast Left (Generic) [facility] [place] [address] [place] [address] Referral ID Status Reason Start Date Expiration Date Visits V isits Requested Authorized [id number] Closed Specialty 11/10/2020 05/10/2022 1 1 Service Requested Reason for Visit Diagnostic Test (Routine) - Closed Specialty Diagnoses / Procedures Referred By Contact Refer red To Contact Radiology Diagnoses Closed bicondylar fracture of distal end of left humerus, initial encounter Dona Mary PA [facility] Rad Ct Scan Procedures CT Elbow wo Contrast Left (Generic) [facility] [place] [address] [place] [address] Referral ID Status Reason Start Date Expiration Date Visits V isits Requested Authorized [id number] Closed Specialty 11/10/2020 05/10/2022 1 1 Service Requested Encounter Details Date Type Department Care Team Description 11/17/[address] Scan at [facility] AmyjohnNimco bustamante Closed bicondylar [facility] MD Lazara fracture of distal [address] [facility] end of left humerus, [place], [place] [address] initial encounter [id number] ORTHOPAEDIC [phone] [place] [address] Social History Tobacco Use Types Packs/Day Years [...] 450mg daily. documented as of this encounter Plan of Treatment Upcoming Encounters Date Type Specialty Care Team Description 11/24/2021 Office Visit Neurology Gregg Lacy MD [place], [place] [address] (Tulio raymond) 04/06/2022 Appointment Radiology 04/06/2022 Office Visit Orthopaedics Wally Rouse MD [facility] ORTHOPAEDIC SURG [place], [place] [address] (Wo rk) documented as of this encounter Procedures Procedure Name Priority Date/Time Associated Diagnosis Comme nts CT ELBOW WO Routine 11/17/2020 3:10 PM Closed bicondylar Resu lts for this CONTRAST LEFT EDT fracture of distal procedur e are in end of left humerus, the res ults initial encounter section. documented in this encounter Results CT Elbow wo Contrast [...] who have questions please contact the health caretaker grounds that requested your imaging first. ? Electronically signed by: Justice Sullivan MD , [facility] ([phone]), at 11/17/2020 3:23 PM Narrative 11/17/2020 3:23 [...] ho have questions please contact the health caretaker grounds that requested your imaging first. Electronically signed by: Justice Sullivan MD , [facility] ([phone]), at 11/17/2020 3:23 PM Nimco Ha MD IMG CT ORDERABLES documented in this encounter Visit Diagnoses Diagnosis Closed bicondylar fracture of distal end of left humerus, initial encounter documented in this encounter Care Teams Foam Fabricator Relationship Specialty Start Date End Date Ekaterina Omer MD PCP - General General Internal Medicine 08/23/18 [address] [place] [address] documented as of this encounter
--- OUTSIDE RECORDS SUMMARY | 2021-10-13 15:51 | XMS_ITS | Encounter Summary ---
:1950 Author Organization [facility] [place] [address] Care Team Providers Name Role Phone Ekaterina Omer MD Primary Care Provider Encounter Details Date Type Department Care Team Description 10/08/2020 Hospital Encounter XRay at [facility] [place] Fredi Nilsa, Closed fracture of distal en d of left humerus with routine healing, unspecified fracture morphology, subsequent encounter; [address] [place] [address] Dr SHEETS Closed bicondylar fracture of distal end of left humerus, initial encounter [facility] [phone] ORTHOPAEDIC SURGERY [place], [place] [address] Social History Tobacco Use Types [...] Pain. oxyCODONE (Roxicodone) Take 1 tablet by 24 tablet 0 09/28/ 021 10/13/2020 5 mg TabletIndications: mouth every 6 hours Closed fracture of as needed for Pain. distal end of left humerus with routine healing, unspecified fracture morphology, subsequent encounter senna-docusate Take 1 tablet by 60 tablet 0 09/21/2020 01/3 03/2021 (Pericolace) 8.6-50 mg mouth daily. Tablet lisinopriL (Zestril) 20 Take 20 mg by mouth 0 11/08/2020 mg Tablet daily. acetaminophen (Tylenol) Take 1,000 mg by 0 [...] times daily. documented as of this encounter Plan of Treatment Upcoming Encounters Date Type Specialty Care Team Description 11/24/2021 Office Visit Neurology Gregg Lacy MD [place], [place] [address] (Wo rk) 04/06/2022 Appointment Radiology 04/06/2022 Office Visit Orthopaedics Wally Rouse MD [facility] ORTHOPAEDIC SURG [place], [place] [address] (Wo rk) documented as of this encounter Procedures Procedure Name Priority Date/Time Associated Diagnosis Comme nts XR ELBOW 3 VIEWS Routine 10/08/2020 12:54 PM Closed fracture o f Results for this LEFT (GENERIC) EDT distal end of left procedu re are in humerus with routine the res ults healing, unspecified section . fracture morphology, subsequent encou nter Closed bicondylar fracture of distal end of left humerus, initial encounter documented in this encounter Results XR Elbow 3 Views Left (GENERIC) (10/08/2020 12:54 PM EDT) Anatomical Region Laterality Modality Elbow Left Digital Radiography Specimen (Source) Anatomical Location Collection Method / Collectio n Time Received Time / Laterality Volume Impressions 10/08/2020 1:25 PM EDT No change in alignment of the hardware reduced, comminuted, intra-articular left distal humerus fracture. Thank you for letting us participate in the care of this patient. ??If you are a health care provider and have any questi ons regarding this report, please contact the number below. ??For patients who have questions please contact the health transitional care manager that requested your imaging first. ? Electronically signed by: Екатерина rollins MD, [facility] ([phone]), at 10/08/2020 1:25 PM Narrative 10/08/2020 1:25 PM EDT EXAMINATION: XR ELBOW 3 VIEWS LEFT (GENERIC) CLINICAL HISTORY: distal humerus ORIF TECHNIQUE: 3 views LEFT elbow COMPARISON: Radiographs and CT September 09, 2020; radiogr aphs September 15, 2020 FINDINGS: Suture anchor is present in lateral max ral epicondyle. Multiple wires reduce the comminuted, intra-articular distal h umerus fracture. A small fragment is unchanged at the anterior joint. Overlying splint obscures fine soft tiss ue detail. Joints are aligned, noting partial resection of radial head. Procedure Note Екатерина Wells MD - 10/08/2020Forma tting of this note might be different from the original. EXAMINATION: XR ELBOW 3 VIEWS LEFT (GENE VIPIN) CLINICAL HISTORY: distal humerus ORIF TECHNIQUE: 3 views LEFT elbow COMPARISON: Radiographs and CT September 09, 2020; radiogr aphs September 15, 2020 FINDINGS: Suture anchor is present in lateral max ral epicondyle. Multiple wires reduce the comminuted, intra-articular distal h umerus fracture. A small fragment is unchanged at the anterior joint. Overlying splint obscures fine soft tiss ue detail. Joints are aligned, noting partial resection of radial head. IMPRESSION No change in alignment of the hardware r educed, comminuted, intra-articular left distal humerus fracture. Thank you for letting us participate in the care of this patient. If you are a health care provider and have any questi ons regarding this report, please contact the number below. For patients w ho have questions please contact the health transitional care manager that requested your imaging first. Electronically signed by: Екатерина rollins MD, [facility] ([phone]), at 10/08/2020 1:25 PM Fredi Gallegos MD IMG DX ORDERABLES documented in this encounter Visit Diagnoses Diagnosis Closed fracture of distal end of left hu merus with routine healing, unspecified fracture morphology, subsequent encounte r Closed bicondylar fracture of distal end of left humerus, initial encounter documented in this encounter Care Teams [employer] Relationship Specialty Start Date End Date Ekaterina Omer MD PCP - General General Internal Medicine 08/23/18 [address] [place] [address] documented as of this encounter
--- OUTSIDE RECORDS SUMMARY | 2021-10-13 15:51 | XMS_ITS | Encounter Summary ---
:1950 Author Organization [facility] [place] [address] Care Team Providers Name Role Phone Ekaternia Omer MD Primary Care Provider Encounter Details Date Type Department Care Team Description 12/01/2020 Anesthesia Event Main Operating Room Ada Batres MD [facility] DR [place]EST[place] [address] [facility] Marlon Juan MD [facility] ANESTHESIOLOGY [place] [address] [place] [address] Anesthesia Record Procedure Summary Procedure Name Responsible Anesthesia Start Anesthesia Stop Anesthesiologist Time Time INSERT OR REPLACE Ada Gill MD 12/01/20 0938 1 1051 PERIPHERAL OR GASTRIC NEUROSTIMULATOR (WRVU 2.45) (N/A Pelvis) Events Date Time Event Comment 12/01/2020 0833 0938 AN Verify 0938 Start 0938 An Start Data 1042 an stop data 1051 Recovery or ICU Handoff Patient care was transferred to the destination unit staff after review of the patient's medica l history, current anesthetic/surgi cynthia status and plan, according to the Provider Handoff Checklist. 1051 Stop Name Total fentaNYL 100 mcg Propofol INF 325.66 mg Dexmedetomidine 20 mcg ceFAZolin (Ancef) 2 g in dextrose 5% 100 mL (2 x 1 g/5 0 mL premix bags) 2 g infusion Agents Name O2 Air N2O O2 Auxiliary Flowmeter 1 Blood No blood administrations on file. Lines, Drains, and Airways Type Details Placement Removal Incision 09/21/20; Left; elbow 09/21/20 0000 by Tangela Zafar RN Incision 11/24/20; 0825; Left, 11/24/20 0825 by Kamlesh lower; back Jeannie Cruz RN Incision 11/24/20; 0826; lower, 11/24/20 0826 by Kamlesh, midline; back Jeannie Cruz RN Incision 12/01/20; 1001; back; 12/01/20 1001 by savannah Chowdary RN PIV 12/01/20; 0838; metacarpal 12/01/20 0838 by Pres garcía, 12/01/20 1148 by vein (top of hand), left; YUMIKO Romero, YUMIKO Fagan ckww-xcm-pquvum catheter system; 20 gauge, 1 in length; Nathalie SHEETS; distraction, tolerated well, appears comfortable; 0; 12/01/20; 1148 documented in this encounter Social History Tobacco Use Types Packs/Day Years Used Date Former Smoker Cigarettes 1 10 Quit: 05/10/18 73 Smokeless Tobacco: Never Used Alcohol Use Standard Drinks/Week Comments No 0 (1 standard drink = 0.6 oz pure alcoho l) Sex Assigned at Date Recorded Female 01/18/2021 7:28 AM EST documented as of this encounter OR Notes Anesthesia Postprocedure Evaluation - Ada Gill MD - 12/01/2020 10:52 AM EDT Department of Anesthesiology Post-procedure Note Patient: Kiya Cummings Procedure Summary Date: 12/01/20 Room / Location: [facility] OR [facility] MAIN OR Anesthesia Start: 937 Anesthesia Stop: 1050 Procedures: INSERT OR REPLACE PERIPHERAL OR GASTRIC NEUROSTIMULATOR (WRVU 2.45) (N/A Pelvis) ELEC ANALYSIS IMPL NEUROSTIM\PULSE GEN SYS-COMPLEX (WRVU 0.8) (N/A Pelvis) MODIFIER,NEUROSTIMULATOR,RECHARGEABLE (N/A ) Diagnosis: (URINARY INCONTINENCE) Surgeons: William Jones MD Responsible Provider: Ada Gill MD Anesthesia Type: MAC ASA Status: 3 All Anesthesia Providers: Anesthesiologist: Ada Gill MD Campus Administrative Assistant: Marlon Juan MD Vitals Value Taken Time BP 126/60 12/01/20 1045 Temp Pulse Resp SpO2 98 % 12/01/20 1051 Pain Level Vitals shown include unvalidated device data. Patient Location: PACU/[facility] Level of Consciousness: Conscious but Sleepy Pain Management: Satisfactory Analgesia PONV: None Cardiovascular Status: At Baseline and Hemodynamically Stable Respiratory Status: Stable Respiratory Status and Supplemental O2 (NC or FM) Postoperative Fluid Status: Intravascular EUvolemia Possible Anesthetic Complications: NONE apparent at time of evaluation Final Primary Anesthesia Type: MAC (The anesthetic type performed was the same as planned.) Comments: Reports she was comfortable, no pain in her arm or shoulder this time ADA GILL MD Anesthesia Preprocedure Evaluation - Ada Gill MD - 11/30/2020 4:40 PM EDT Images from the original note were not included. Pre-Anesthesia Evaluation for: Kiya Cummings a 70 y.o. female. Procedure(s): INSERT OR REPLACE PERIPHERAL OR GASTRIC NEUROSTIMULATOR (WRVU 2.45) ELEC ANALYSIS IMPL NEUROSTIM\PULSE GEN SYS-COMPLEX (WRVU [...] PRG FLUOROSCOPY EXAM UP TO 1 HR [facility] OR [facility] CARE PROV N/A 11/24/2020 FLUOROSCOPY (WRVU 0.17) performed by William Jones MD at [facility] OR ??? PRO COLONOSCOPY, DIAGNOSTIC N/A 12/24/2017 COLONOSCOPY, DIAGNOSTIC performed by Caleb Tineo MD at [facility] ENDOSCOPY ??? PRO ELECT ANALYSIS IMPL NEUROSTIM GEN, COMPLEX SPINAL, PERIPHERAL STIMU W/WV N/A 11/24/2020 ELEC ANALYSIS IMPL NEUROSTIM\PULSE GEN SYS-COMPLEX (WRVU 0.8) performed by William Jones MD at [facility] OR ??? PRO EXCISE EXCESS SKIN TISSUE, ABDOMEN N/A 03/06/2014 ABDOMINOPLASTY performed by Marcos Vance MD at [facility] OR ??? PRO INCISION, IMPLANT, NEUROELEC, SACRAL NERVE N/A 11/24/2020 INCISION & IMPLANT SACRAL NEUROSTIMULATOR ELECTRODE (WRVU 12.2) performed by William Jones MD at [facility] OR ??? PRO OPEN TX HUMERAL SUPRACONDYLAR FRACTURE W/O XTN Left 09/21/2020 OPEN TREATMENT OF HUMERAL SUPRACONDYLAR OR TRANSCONDYLAR FRACTURE, INCLUDES INTERNAL FIXATION WITHOUT INTERCONDYLAR EXTENSION (WRVU 13.15) performed by Nimco Ha MD at [facility] MAIN OR ??? PRO REELBOW LAT LIGMNT W/TISS Left 09/21/2020 LATERAL COLLATERAL LIGAMENT REPAIR, ELBOW (WRVU 9.16) performed by Nimco Ha MD at [facility] MAIN OR ??? PRO REMOVAL OF HEAD OF RADIUS Left 09/21/2020 RADIAL HEAD, EXCISION (WRVU 6.42) performed by Nimco Ha MD at [facility] MAIN OR ??? PRO UNLISTED PROCEDURE, MUSCULOSKELETAL [...] Physical Exam: Preprocedure Vitals Current as of 11/30/20 1640 No BP, pulse, respiration, SpO2, or temperature recorded. Height: Weight: BMI: IBW: Airway Assessment: Mallampati: II TM distance: >3 FB Neck ROM: full Cardiovascular Assessment: system normal Pulmonary Assessment: pulmonary exam normal Dental Assessment: Misc Assessment: IV access: Peripheral line Last Filed Perioperative Cognitive Screening None Anesthesia Plan: ASA 3 MAC, with a(n) intravenous induction Kiya Cummings is a 70 y.o. female with a hx significant for asthma, hypothyroid, depression, obesity,LEONARD (bipap), DM2, hx of remote PE (takes eliquis), HTN (lisinopril), presenting for the following procedure(s): Procedure(s): INSERT OR REPLACE PERIPHERAL OR GASTRIC NEUROSTIMULATOR (WRVU 2.45) ELEC ANALYSIS IMPL NEUROSTIM\PULSE GEN SYS-COMPLEX (WRVU 0.8) MODIFIER,NEUROSTIMULATOR,RECHARGEABLE Allergies: -- Sulfa (Sulfonamide Antibiotics) -- Hives -- Ciprofloxacin -- Macrodantin (Nitrofurantoin Macrocrystal) -- Penicillins -- Pramipexole Anesthesia Hx: Prior grade 1 view with mac 3, iGel 3 used. NPO status: adequate TTE: 12/2016 - Normal EF, trace AI, no WMA's. Labs: No results for input(s): WBC, HGB, HCT, PLATELET in the last 7068 hours. No results for input(s): NA, K, CL, CO2, BUN, CREATININE in the last 7068 hours. No results for input(s): AST, ALT, ALKPHOS, BILITOT, BILIDIR in the last 7068 hours. No results for input(s): PT, INR, PTT in the last 168 hours. No results found for: ABORH Plan is for MAC with GA back-up with ETT (2/2 prone positioning), standard ASA monitors, and adequate IV access. Marlon Juan MD PGY4 (CA-3), Harness And Bag Inspector Pager #[phone] OR attending addendum: Patient with left elbow trouble, will position to comfort with MAC ADA GILL MD Region - Other Informed Consent: Anesthetic plan and risks discussed with patient and spouse. Plan discussed with SHEET SORTER. Anesthesia Screening documented in this encounter Plan of Treatment Upcoming Encounters Date Type Specialty Care Team Description 11/24/2021 Office Visit Neurology Gregg Lacy MD [place], [place] [address] (Wo mandi) 04/06/2022 Appointment Radiology 04/06/2022 Office Visit Orthopaedics Wally Rouse MD [facility] ORTHOPAEDIC SURG [place], [place] [address] (Tulio raymond) documented as of this encounter Visit Diagnoses Not on filedocumented in this encounter Administered Medications Inactive Administered Medications - up to 3 most recent administrations Medication Order MAR Action Action Date Dose Rate Site ceFAZolin (Ancef) 2 g in dextrose 5% Given 12/01/2020 9:55 AM ED T 2 g 100 mL (2 x 1 g/50 mL premix bags) infusion 2 g, Intravenous, ONCE, 1 dose, On Sun12/01/20 at 0845, Administer over 30 Minutes, Total dose of ceFAZolin 2 grams, administered using two ceFAZolin 1g/50mL IV bags. Infuse each ceFAZolin 1g/50mL bag over 30 minutes (100 ml/hr) for total infusion time of 60 minutes. On the MAY, document administration of first bag using New Bag (1 of 2) MAR action for dose of 1g. On the MAY, document administration of second bag using Next Bag (2 of 2) MAR action for dose of 1g (resulting in total dose of 2g)., Day of Surgery (Day of Procedure), Indication for (Active or Suspected): Prophylaxis dexmedetomidine (Precedex) (4 mcg/mL) bolus Given 12/01/2020 10:14 AM EDT 4 mcg injection (Anesthsia) Intravenous, PRN, Starting on Sun12/01/20 at 0945, Until Sun12/01/20 at 1051, Anesthesia Intra-op, Routine Given 12/01/2020 10:07 AM EDT 4 mcg Given 12/01/2020 9:57 AM EDT 4 mcg fentaNYL (pf) (50 mcg/mL) multi-dose Given 12/01/2020 10:18 AM E DT 25 mcg injection Intravenous, PRN, Starting on Sun12/01/20 at 0940, Until Sun12/01/20 at 1051, Anesthesia Intra-op, Routine Given 12/01/2020 10:05 AM EDT 25 mcg Given 12/01/2020 9:40 AM EDT 50 mcg propofoL (Diprivan) infusion Rate/Dose 12/01/2020 30 mcg/kg/min 19.188 Intravenous, CONTINUOUS PRN, Change 10:31 AM EDT mL/hr Starting on Sun12/01/20 at 0945, Until Sun12/01/20 at 1051, Anesthesia Intra-op, Routine Rate/Dose Change 12/01/2020 10:26 AM EDT 50 mcg/kg/min 31.98 mL/hr Rate/Dose Change 12/01/2020 10:07 AM EDT 65 mcg/kg/min 41.574 mL/hr documented in this encounter Care Teams Rug Underlay Machine Operator Relationship Specialty Start Date End Date Ekaterina Omer MD PCP - General General Internal Medicine 08/23/18 [address] [place] [address] documented as of this encounter
--- OUTSIDE RECORDS SUMMARY | 2021-10-13 15:51 | XMS_ITS | Encounter Summary ---
:1950 Author Organization [facility] [place] [address] Care Team Providers Name Role Phone Ekaterina Omer MD Primary Care Provider Reason for Visit Reason Onset Date Comments Post Procedure Call 12/02/2020 Encounter Details Date Type Department Care Team Description 12/02/2020 Telephone Obstetrics and Gynecology Lelia Shin, Post Procedure Call at [facility] [address] Social History Tobacco Use Types Packs/Day Years Used Date Former Smoker Cigarettes 1 10 Quit: 05/10/18 73 Smokeless Tobacco: Never Used Alcohol Use Standard Drinks/Week Comments No 0 (1 standard drink = 0.6 oz pure alcoho l) Sex Assigned at Date Recorded Female 01/18/2021 7:28 AM EST documented as of this encounter Miscellaneous Notes Telephone Encounter - Nathalie Shin RN - 12/02/2020 9:24 AM EDT TELEPHONE NOTE Caller: Kortney CALDERON Reason for call: Post op call Assessment: Pt had surgery on 12/01/20 and had stage 2 of interstim placed. Plan/Instructions: Left message for pt to call documented in this encounter Plan of Treatment Upcoming Encounters Date Type Specialty Care Team Description 11/24/2021 Office Visit Neurology Gregg Lacy MD [place], [place] [address] (Wo rk) 04/06/2022 Appointment Radiology 04/06/2022 Office Visit Orthopaedics Wally Rouse MD [facility] ORTHOPAEDIC SURG [place], [place] [address] (Wo rk) documented as of this encounter Visit Diagnoses Not on filedocumented in this encounter Care Teams Drafter Chief Design Relationship Specialty Start Date End Date Ekaterina Omer MD PCP - General General Internal Medicine 08/23/18 [address] [place] [address] documented as of this encounter
--- OUTSIDE RECORDS SUMMARY | 2021-10-13 15:51 | XMS_ITS | Encounter Summary ---
:1950 Author Organization [facility] [place] [address] Care Team Providers Name Role Phone Ekaterina Omer MD Primary Care Provider Reason for Visit Reason Onset Date Comments Follow-up 11/10/2020 Encounter Details Date Type Department Care Team Description 11/10/2020 Telephone Obstetrics and Gynecology [place] [address] Social History Tobacco Use Types Packs/Day Years Used Date Former Smoker Cigarettes 1 10 Quit: 05/10/18 73 Smokeless Tobacco: Never Used Alcohol Use Standard Drinks/Week Comments No 0 (1 standard drink = 0.6 oz pure alcoho l) Sex Assigned at Date Recorded Female 01/18/2021 7:28 AM EST documented as of this encounter Miscellaneous Notes Telephone Encounter - Nathalie Shin RN - 11/10/2020 5:09 PM EDT TELEPHONE NOTE Caller: Kortney Shin RN Reason for call: Review Assessment: Pt was scheduled for surgery today and was cancelled because of not being aware of hold Xarelto. New surgery date planned for pt and following instructions give. Plan/Instructions: PCP's office says pt should HOLD Xarelto the day before each stage and resume it the day after each stage, for both stage 1 and 2. No bridge. documented in this encounter Plan of Treatment Upcoming Encounters Date Type Specialty Care Team Description 11/24/2021 Office Visit Neurology Gregg Lacy MD [place], [place] [address] (Wo rk) 04/06/2022 Appointment Radiology 04/06/2022 Office Visit Orthopaedics Wally Rouse MD [facility] ORTHOPAEDIC SURG [place], [place] [address] (Wo rk) documented as of this encounter Visit Diagnoses Not on filedocumented in this encounter Care Teams Clinical Dietician Relationship Specialty Start Date End Date Ekaterina Omer MD PCP - General General Internal Medicine 08/23/18 [address] [place] [address] documented as of this encounter
--- OUTSIDE RECORDS SUMMARY | 2021-10-13 15:51 | XMS_ITS | Encounter Summary ---
:1950 Author Organization [facility] [place] [address] Care Team Providers Name Role Phone Ekaterina Omer MD Primary Care Provider Encounter Details Date Type Department Care Team Description 10/06/2020 Telephone Anesthesiology Mary Ellen Gan MD [facility] [place] [address] ANESTHESIOLOGY DEPT [phone] [place], [place] [address] (Wo rk) Social History Tobacco Use Types Packs/Day Years Used Date Former Smoker Cigarettes 1 10 Quit: 05/10/18 73 Smokeless Tobacco: Never Used Alcohol Use Standard Drinks/Week Comments No 0 (1 standard drink = 0.6 oz pure alcoho l) Sex Assigned at Date Recorded Female 01/18/2021 7:28 AM EST documented as of this encounter Progress Notes Mary Ellen Gan MD - 10/06/2020 10:20 AM EDT REGIONAL NERVE BLOCK FOLLOW-UP I attempted to contact the patient via telephone regarding resolution of nerve block. I was unable to reach the patient. x3 If there are any questions or concerns regarding the nerve block, do not hesitate to contact the regional anesthesia team documented in this encounter Plan of Treatment Upcoming Encounters Date Type Specialty Care Team Description 11/24/2021 Office Visit Neurology Gregg Lacy MD [place], [place] [address] (Wo rk) 04/06/2022 Appointment Radiology 04/06/2022 Office Visit Orthopaedics Wally Rouse MD [facility] ORTHOPAEDIC SURG [place], [place] [address] (Wo rk) documented as of this encounter Visit Diagnoses Not on filedocumented in this encounter Care Teams Skelp Processor Relationship Specialty Start Date End Date Ekaterina Omer MD PCP - General General Internal Medicine 08/23/18 [address] [place] [address] documented as of this encounter
--- OUTSIDE RECORDS SUMMARY | 2021-10-13 15:51 | XMS_ITS | Encounter Summary ---
:1950 Author Organization [place] [address] Care Team Providers Name Role Phone Ekaterina Omer MD Primary Care Provider Reason for Visit Reason Onset Date Comments Post Procedure Call 11/25/2020 Encounter Details Date Type Department Care Team Description 11/25/2020 Telephone Obstetrics and Saida Mistry APRN Post Procedure Call Gynecology at [facility] [place] [address] [place] [address] [place] [address] [phone] (Wo rk) Social History Tobacco Use Types Packs/Day Years Used Date Former Smoker Cigarettes 1 10 Quit: 05/10/18 73 Smokeless Tobacco: Never Used Alcohol Use Standard Drinks/Week Comments No 0 (1 standard drink = 0.6 oz pure alcoho l) Sex Assigned at Date Recorded Female 01/18/2021 7:28 AM EST documented as of this encounter Miscellaneous Notes Telephone Encounter - Nathalie Shin RN - 11/25/2020 12:39 PM EDT TELEPHONE NOTE Caller: Kortney CALDERON Reason for call: Post op call Assessment: Pt had surgery on 11/24/20 and had INCISION & IMPLANT SACRAL NEUROSTIMULATOR ELECTRODE (WRVU 12.2) (N/A) ELEC ANALYSIS IMPL NEUROSTIM\PULSE GEN SYS-COMPLEX (WRVU 0.8) (N/A) MODIFIER,NEUROSTIMULATOR,RECHARGEABLE (N/A) FLUOROSCOPY (WRVU 0.17 with . Stage 1. Pt doing well. Minimal pain using Tylenol and Oxycodone this am with relief. Pain is at inc site. Dressing dry and intact. Has had one leak today. Can feel sensation . No fever.Eating/drinking. Plan/Instructions: Pt will keep dressing dry and intact. Second procedure scheduled for next week. Pt will call with any questions or concerns. Pt in agreement. documented in this encounter Plan of Treatment Upcoming Encounters Date Type Specialty Care Team Description 11/24/2021 Office Visit Neurology Gregg Lacy MD [place], [place] [address] (Wo rk) 04/06/2022 Appointment Radiology 04/06/2022 Office Visit Orthopaedics Wally Rouse MD [facility] ORTHOPAEDIC SURG [place], [place] [address] (Wo rk) documented as of this encounter Visit Diagnoses Not on filedocumented in this encounter Care Teams Gaming Host Relationship Specialty Start Date End Date Ekaterina Omer MD PCP - General General Internal Medicine 08/23/18 [address] [place] [address] documented as of this encounter
--- OUTSIDE RECORDS SUMMARY | 2021-10-13 15:51 | XMS_ITS | Encounter Summary ---
:1950 Author Organization [facility] [place] [address] Care Team Providers Name Role Phone Ekaterina Omer MD Primary Care Provider Encounter Details Date Type Department Care Team Description 09/22/2020 Telephone [place] [facility] [place]imee Wilson MD [facility] [place] [address] ORTHOPAEDIC SURGERY [phone] [place], [place] [address] (Wo rk) Social History Tobacco Use Types Packs/Day Years Used Date Former Smoker Cigarettes 1 10 Quit: 05/10/18 73 Smokeless Tobacco: Never Used Alcohol Use Standard Drinks/Week Comments No 0 (1 standard drink = 0.6 oz pure alcoho l) Sex Assigned at Date Recorded Female 01/18/2021 7:28 AM EST documented as of this encounter Miscellaneous Notes Telephone Encounter - Aimee Wilson MD - 09/22/2020 8:24 PM EDT Received notification patient tried to call this AM when I was no longer the on- call resident physician. Dr. Gonzalo Hill returned patient phone call and discussed concerns with her. Please see his encounter dated 09/22/20. documented in this encounter Plan of Treatment Upcoming Encounters Date Type Specialty Care Team Description 11/24/2021 Office Visit Neurology Gregg Lacy MD [place], [place] [address] (Wo rk) 04/06/2022 Appointment Radiology 04/06/2022 Office Visit Orthopaedics Wally Rouse MD [facility] ORTHOPAEDIC SURG [place], [place] [address] (Wo rk) documented as of this encounter Visit Diagnoses Not on filedocumented in this encounter Care Teams Maintenance Mechanic Supervisor Relationship Specialty Start Date End Date Ekaterina Omer MD PCP - General General Internal Medicine 08/23/18 [address] [place] [address] documented as of this encounter
--- OUTSIDE RECORDS SUMMARY | 2021-10-13 15:51 | XMS_ITS | Encounter Summary ---
:1950 Author Organization [facility] [place] [address] Care Team Providers Name Role Phone Ekaterina Omer MD Primary Care Provider Encounter Details Date Type Department Care Team Description 12/01/2020 Hospital Encounter Same Day Program at [facility], Urinary and fecal Jessica Lu MD [facility] [place] [address] [place], [place] [phone] (Work) [phone] Social History Tobacco Use Types Packs/Day Years [...] Sign Reading Time Taken Comments Blood Pressure 117/52 12/01/2020 11:30 AM EDT Pulse 56 12/01/2020 8:17 AM EDT Temperature 36.4 ??C (97.5 ??F) 12/01/2020 10:45 AM EDT Respiratory Rate 16 12/01/2020 11:30 AM EDT Oxygen Saturation 97% 12/01/2020 11:40 AM EDT Inhaled Oxygen Concentration - - Weight - - Height - - Body Mass Index - - documented in this encounter Discharge Instructions Discharge InstructionsGracia Mejia RN - 12/01/2020 11:00 AM EDT POST ANESTHESIA INSTRUCTIONS Go home, rest, use [...] soreness, which usually goes away in 12-24 hours.POST ANESTHESIA INSTRUCTIONS Go home, rest, use caution [...] which usually goes away in 12-24 hours. Patient Yohana Joyce MD - 12/01/2020 7:39 AM EDT Images from the original note were not included. Patient Discharge Instructions: Follow up appointments and recommendations: 12/14/2020 at 01:[address] Jones For problems or concerns related to this hospitalization call: [phone] weekdays, or [phone] weekends or nights. Call your doctor if you develop: --A fever over 101 degrees F --Severe pain -- Nausea / vomiting, diarrhea, intolerance of food or drink --If your wound is red, hot, swollen, tender or draining yellow/green fluid Activity level: You should be able to resume your usual activities of daily living (eating, drinking, washing, walking.). You can walk or climb stairs as long as you are not straining. You should avoidmore vigorous exercise for at least 6 weeks. No lifting, pushing or pulling greater than 5-10 poundsfor 6 weeks. No sexual intercourse and place nothing in the vagina for 6 weeks. Diet: Regular as tolerated, drink plenty of fluids. Use a stool softener (Colace) twice daily and Metamucil or Citrucel once or twice daily to keep your bowel movement soft and regular, so you do not have to strain. ?? If you miss two days without a bowel movement, take 30cc of Nestor???s Milk of Magnesia. You maytake up to 30cc of Nestor???s Milk of Magnesia 4 times per day over a short amount of time (1 week). Driving: Do not drive until you are off of all narcotic medications and you are not feeling pain; usually about 1-2 weeks. Shower/Bath: Showering is fine. Do not soak in a tub for two weeks following surgery, this may causeyour stitches to dissolve too early. Pain medications include Tylenol and oxycodone ?? You may take Tylenol 650 mg every 6 hours. Maximum daily dose of Tylenol is 3000 mg. ?? Please use the oxycodone 5 mg every 4-6 hours as needed for pain that breaks through tylenol. documented in this encounter Medications at Time [...] mouth 2 times daily for 7 days. senna-docusate Take 1 tablet by 60 tablet 0 09/21/2020 01/3 03/2021 (Pericolace) 8.6-50 mg mouth daily. Tablet documented as of this encounter H&P Notes Yohana Perez MD - 12/01/2020 8:57 AM EDT Inpatient [facility] - Admission Interval Note I have reviewed the pre-procedure H&P completed by Maksim Jones and Jeanne on 9/13/21. (x) Condition unchanged since H&P originally performed. Interval Note: S: Kiya Cummings is a 70 y.o. PMHx of cognitive impairment, PE, diverticulitis, urinary and fecal incontinence who presents for surgical management of refractory urge urinary incontinence. She is doing well today. Endorse significant improvement in her incontinence symptoms. She has no further questionor concern with proceeding forward with the second part of the SNM implantation. Last Xarelto dose taken Sunday. Expressed L shoulder and L arm tenderness. L arm must remain in splint device intra-op. Left side UE should not be utilized for BP cuff monitoring and extra care needed during patient transport. For acute pain management, she endorses that she can't take ibuprofen given PE history. Has tolerated postoperative pain with acetaminophen and oxycodone for breakthrough during recent procedures. She has 4 pills of oxycodone left from most recent procedure. O: Patient Vitals for the past 24 hrs: Temp Pulse Resp BP SpO2 O2 Device 12/01/20 0817 36.7 ??C (98.1 ??F) 56 16 129/64 96 % RA Gen: well-appearing, NAD, alert, oriented, large body habitus, BMI 42 CV: RRR, nml s1/s2 Pulm: CTAB, no wheezes, Abd: soft, nt/nd, no rebound tenderness : deferred to OR MSK: L shoulder tenderness, entire L arm bound in orthopedic sling. RUE normal. Ext: No LE edema bilaterally. Bilateral LE with diffuse varicose veins, mildly tenderness (at baseline per patient). A/p: Kiya Cummings is a 70 y.o. PMHx of cognitive impairment, PE, diverticulitis, urinary and fecal incontinence who presents for stage 2 of sacral neuromodulation with generator implantation. Consents (procedure & opioid) signed previously (see media). Procedure consent re-signed today and placed in patient's chart. She is able to tylenol and opioids for acute pain control. Preferred pharmacy: [facility] in [place]. Plan to proceed with the procedure. Opioid Risk Tool Female Male 1. Family history of Substance Abuse Alcohol [x] 1 [] 3 Illegal Drugs [] 2 [] 3 Prescription Drugs [] 4 [] 4 2. Personal History of Substance Abuse Alcohol [] 3 [] 3 Illegal Drugs [] 4 [] 4 Prescription Drugs [] 5 [] 5 3. Age (cristy box if 16-45) [] 1 [] 1 4. History of Preadolescent Sexual Abuse [] 3 [] 0 5. Psychological Disease Attention Deficit Disorder, Obsessive Compulsive D/o, Bipolar, Schizophrenia [] 2 [] 2 Depression [x] 1 [] 1 TOTAL: 2 Comments about ORT in relation to this patient: Opioid Risk Category: low risk 0-3 -Pre-op abx: Ancef -DVT ppx: SCDs -Post discharge pain mgt: advil OTC and oxycodone -Anticipate same day discharge Yohana Perez MD, PGY1 Gynecology, [id number] 12/01/2020 documented in this encounter Miscellaneous Notes Op Note - William Jones MD - 12/01/2020 10:01 AM EDT [facility] Operative Note Patient Name: Kiya Cummings : [id number] MR#: [id number] Case Date: 12/01/2020 Surgeon: Surgeon(s) and Role: * [facility] Jones MD - Primary * Payton Dalton MD - Resident * Yohana Perez MD - Resident Preoperative diagnosis: URINARY INCONTINENCE Postoperative diagnosis: URINARY INCONTINENCE Procedure(s) (LRB): INSERT OR REPLACE PERIPHERAL OR GASTRIC NEUROSTIMULATOR (WRVU 2.45) (N/A) ELEC ANALYSIS IMPL NEUROSTIM\PULSE GEN SYS-COMPLEX (WRVU 0.8) (N/A) MODIFIER,NEUROSTIMULATOR,RECHARGEABLE (N/A) Anesthesia: General Estimated Blood Loss: 15cc Specimens removed during surgery: None Drains: None Surgical Closure: Primary Closure - skin incision is completely closed without any wires, sin, drains or other devices Disposition: aroused from sedation, and taken to the recovery room in a stable condition Condition: doing well without problems (Please see the Surgical Encounter Summary for any Implant and Specimen details pertinent to this patient.) HPI/Surgical Indications: Pt. demonstrated on bladder diary to have an at least 50% improvement in episodes of urge UI since implant of the permanent lead. Number of episodes decreased from UUI x4/day to only 2 in the last week. The patient confirmed these findings in the pre-operative holding area and indicated a desire to proceed with the device implant. Procedure Description: The patient was brought to the operating room and placed in the prone position. In this position adequate anesthesia was administered and the surgical site was inspected. A time-out protocol was adhered to, confirming the patient's identity, planned procedures and safety measures. The dressings from the prior surgery were removed and the wound inspected without any concern for infection. For prophylaxis, 2 gm Ancef were given intravenously. The skin was prepped first with an alcohol wash followed by a Duraprep preparation. The surgical site was draped per usual fashion including use of an Ioban dressing. The wound was infiltrated with 0.25% Marcaine and opened. The lead and lead extension were brought up through the incision and the bootand lead extension were disconnected from the permanent lead. The head of the lead extension was cutoff the temporary lead and discarded. The lead extension was removed from beneath the drapes. The anesthesiology medical doctor pocket was expanded and the battery attached to the lead. The set screw was tightened. The battery was placed in the anesthesiology medical doctor pocket that was copiously irrigated first with bacitracin-treated sterile water and next by sterile water. The medical pocket was next closed in 3 layers. Thefirst two layers were interrupted 2-O Vicryl sutures followed by a layer of interrupted 3-O Vicryl. The final subcuticular layer was closed with 4-O Monocryl. The battery impedence was checked and no pr oblems were identified. The wound was next closed with a layer of DermaFlex. The patient was next taken to the recovery room in stable condition. Upon waking the IPG was programmed and the patient instructed on use of the patient programmer analyst. Settings for the IPG program were programmed into the patient programmer analyst. Infection Bundle used? No Attestation: Case Date: 12/01/2020 I was present and I participated during the entire procedure (does not need to include opening and closing). [facility] Jones MD 12/01/2020 documented in this encounter Plan of Treatment Upcoming Encounters Date Type Specialty Care Team Description 11/24/2021 Office Visit Neurology Gregg Lacy MD [place], [place] [address] (Wo rk) 04/06/2022 Appointment Radiology 04/06/2022 Office Visit Orthopaedics Wally Rouse MD [facility]TH[facility] SURG [place], [place] [address] (Wo rk) documented as of this encounter Procedures Procedure Name Priority Date/Time Associated Diagnosis Comme nts MODIFIER,NEUROSTIMULATO 12/01/2020 9:37 URINARY INCONT INENCE R,RECHARGEABLE AM EDT ELEC ANALYSIS IMPL 12/01/2020 9:37 URINARY INCONTINENC E NEUROSTIM\PULSE GEN AM EDT SYS-COMPLEX (WRVU 0.8) INSERT OR REPLACE 12/01/2020 9:37 URINARY INCONTINENCE PERIPHERAL OR GASTRIC AM EDT NEUROSTIMULATOR (WRVU 2.45) POCT GLUCOSE Routine 12/01/2020 8:21 Results for this AM EDT procedure are i n the results section. documented in this encounter Results POCT Glucose (12/01/2020 8:21 AM EDT) P athologist Signature POC Glucose 89 65 - 199 [facility] mg/dL [facility] Comment: Supplemental ranges: <140 mg/dL before meals <180 mg/dL all other times of the day Specimen Anatomical Collection Method Collection Time Receive d Time (Source) Location / / Volume Laterality Blood 12/01/2020 8:21 AM 8:21 EDT AM EDT [facility] MD POINT OF CARE TEST ORDERABLE S Performing Organization Address City/State/[place] [address] documented in this encounter Visit Diagnoses Diagnosis Urinary and fecal incontinence Unspecified urinary incontinence documented in this encounter Administered Medications Inactive Administered Medications - up to 3 most recent administrations Medication Order MAR Action Action Date Dose Rate Site acetaminophen (Tylenol) tablet Given 12/01/2020 8:34 AM EDT 1,00 0 mg 1,000 mg 1,000 mg, Oral, ONCE, 1 dose, On Sun12/01/20 at 0845, Administer with SIP of H2O only., Day of Surgery (Day of Procedure), Routine lactated ringers infusion New Bag 12/01/2020 8:39 AM EDT 1,000 mLs 100 mL/hr 1,000 mL, at 100 mL/hr, Intravenous, CONTINUOUS, Starting on Sun12/01/20 at 0845, Until Sun12/01/20 at 1125, Day of Surgery (Day of Procedure) oxyCODONE (Roxicodone) tablet 5-10 mg Given 12/01/2020 11:11 AM EDT 5 mg 5-10 mg, Oral, EVERY 3 HOURS PRN, Starting on Sun12/01/20 at 1048, Until Sun12/01/20 at 1356, Pain, - If multiple pain medications ordered, use acetaminophen first. - If pain not relieved by acetaminophen first, administer oxycodone. - Initial dose 5 mg. - If pain control not adequate in 60 minutes, give additional 5 mg., Routine documented in this encounter Active and Recently Administered Medications Times are shown in EDT. Scheduled Medication Order 11/29/2020 11/30/2020 12/01/2020 acetaminophen (Tylenol) tablet 1,000 mg (COMPLETED) 833 (Given - Provider: Chanell Bagley RN) 1,000 mg, Oral, ONCE, 1 dose, On 11/11 at 0845, Administer with SIP of H2O only., Day of Surgery (Day of Procedure), Routine ceFAZolin (Ancef) 2 g in dextrose 5% 100 mL (2 x 1 g/50 mL premix bags) infusion (COMPLETED) 954 (Given - Provid er: Marlon Juan MD) 2 g, Intravenous, ONCE, 1 dose, On Sun at 0845, Administer over 30 Minutes, Total dose of ceFAZolin 2 grams, administered using two ceFAZolin 1g/50mL IV bags. Infuse each ceFAZolin 1g/50mL bag o giuseppe 30 minutes (100 ml/hr) for total inf usion time of 60 minutes. On the MAY, document administration of first bag using New Bag (1 of 2) MAR action for dose of 1g. On the MAR, document administration of second bag using Next Bag (2 of 2) MAR action for dose of 1g (resulting in total dose of 2g)., Day of Surgery (Day of Procedure), Indication for (Active or Suspected): Prophylaxis Continuous Medication Order 11/29/2020 11/30/2020 12/01/2020 lactated ringers infusion (CANCELED) 0839 (New Bag - Provider: Chanell Bagley RN) 1,000 mL, at 100 mL/hr, Intravenous, CON TINUOUS, Starting on Sun12/01/20 at 0845, Until Sun12/01/20 at 1125, Day of Surgery (Day of Procedure) PRN Medication Order 11/29/2020 11/30/2020 12/01/2020 acetaminophen (Tylenol) tablet 650 mg 650 mg, Oral, EVERY 6 HOURS PRN, Startin g on Sun12/01/20 at 1048, Until Sun12/01/20 at 1356, Pain, If multiple pain medications ordered, use acetaminophen first. Maximum dose of acetaminophen is 4000 mg from all sources in 24 hours. When orde red for pain, acetaminophen should be given even when other ordered pain medications are indicated., Routine BUpivacaine (pf) (Marcaine) (2.5 mg/mL) 0.25% injection (CANCELE D) 1037 (Given - Provider: [facility] Jones MD) ONCE PRN, Starting on Sun12/01/20 at 103 7, Until Sun12/01/20 at 1356, Intra- Operative (Intra-Procedure), Routine oxyCODONE (Roxicodone) tablet 5-10 mg 1111 (Given - Provider: Gracia Mejia RN) 5-10 mg, Oral, EVERY 3 HOURS PRN, Starti ng on Sun12/01/20 at 1048, Until Sun12/01/20 at 1356, Pain, - If multiple pain medications ordered, use acetaminophen first. - If pain not relieved by acetaminoph en first, administer oxycodone. - Initia l dose 5 mg. - If pain control not adequate in 60 minutes, give additional 5 mg., Routine documented in this encounter Care Teams Motion Picture Set Worker Relationship Specialty Start Date End Date Ekaterina Omer MD PCP - General General Internal Medicine 08/23/18 [address] [place] [address] documented as of this encounter
--- OUTSIDE RECORDS SUMMARY | 2021-10-13 15:51 | XMS_ITS | Encounter Summary ---
:1950 Author Organization [facility] [place] [address] Care Team Providers Name Role Phone Ekaterina Omer MD Primary Care Provider Encounter Details Date Type Department Care Team Description 11/12/2020 Telephone [place] [facility] [place] [phone] Social History Tobacco Use Types Packs/Day Years Used Date Former Smoker Cigarettes 1 10 Quit: 05/10/18 73 Smokeless Tobacco: Never Used Alcohol Use Standard Drinks/Week Comments No 0 (1 standard drink = 0.6 oz pure alcoho l) Sex Assigned at Date Recorded Female 01/18/2021 7:28 AM EST documented as of this encounter Miscellaneous Notes Telephone Encounter - Erica Contreras RMA - 11/12/2020 12:27 PM EDTSummary: PT questions Triage Note Subjective: PT and brace SP 09/21/20 (Gitajn) LEFT intraarticular distal humerus fx ORIF Douglas questions/Assessment: SEBASTIAN Giordano called to get the last office note and to find out if it is ok for Kiya to continue with her pt and to see if she can come out of the brace as planned, Reviewed with Anjali LOUISE - she stated that it is ok for Kiya to continue PT and it is ok for her to come out of the brace as planned. Information given to SEBASTIAN Giordano and office note faxed to [phone]. documented in this encounter Plan of Treatment Upcoming Encounters Date Type Specialty Care Team Description 11/24/2021 Office Visit Neurology Gregg Lacy MD [place], [place] [address] (Wo rk) 04/06/2022 Appointment Radiology 04/06/2022 Office Visit Orthopaedics Wally Rouse MD [facility] ORTHOPAEDIC SURG [place], [place] [address] (Wo rk) documented as of this encounter Visit Diagnoses Not on filedocumented in this encounter Care Teams Onion Topper Relationship Specialty Start Date End Date Ekaterina Omer MD PCP - General General Internal Medicine 08/23/18 [address] [place] [address] documented as of this encounter
--- OUTSIDE RECORDS SUMMARY | 2021-10-13 15:51 | XMS_ITS | Encounter Summary ---
:1950 Author Organization [facility] [place] [address] Care Team Providers Name Role Phone Ekaterina Omer MD Primary Care Provider Encounter Details Date Type Department Care Team Description 09/21/2020 Anesthesia Event Main Operating Room Berry Osorio MD [facility] [place] [address] [facility] [place] [address] [facility] [place] [address] Anesthesia Record Procedure Summary Procedure Name Responsible Anesthesia Start Anesthesia Stop Anesthesiologist Time Time OPEN TREATMENT OF Berry Garcia MD 09/21/20 0732 09/21/20 0 921 HUMERAL SUPRACONDYLAR OR TRANSCONDYLAR FRACTURE, INCLUDES INTERNAL FIXATION WITHOUT INTERCONDYLAR EXTENSION (WRVU 13.15) (Left Arm) Events Date Time Event Comment 09/21/2020 0648 0732 Start 0733 AN Verify 0733 An Start Data 0740 An Induction 0741 An Intubation 0742 Anesthesia Ready 0753 An Tourn Inflated 0815 Break/Relief In I assumed care f or Break Relief before which we: 1. Identifie d the patient 2. Identified the responsible provider(s) 3. Reviewed the pertinent medica l history 4. Discussed the surgical plan an d course 5. Reviewed intra-op anesthesia manag ement and issues during anesthesia 6. Se t expectations for the relief (and/or post-pro cedure) period 7. Allowed opportunity for questions and acknowledgement of understanding Kris Johnson CRNA 0831 Break/Relief Out 901 An Tourn Deflated 916 Extubation/LMA Out 920 an stop data 920 Recovery or ICU Handoff Patient care was transferred to the destination unit staff after review of the patient's medica l history, current anesthetic/surgi cynthia status and plan, according to the Provider Handoff Checklist. 09 Stop Name Total fentaNYL 75 mcg IV Lidocaine 50 mg Propofol 250 mg ePHEDrine 20 mg Ondansetron 4 mg BUpivacaine 0.5% 20 mL ceFAZolin 2 g Propofol INF 233.31 mg lactated ringers infusion 0 mL Agents Name O2 Air N2O Sevoflurane (et) Blood No blood administrations on file. Lines, Drains, and Airways Type Details Placement Removal Incision 09/21/20; Left; elbow 09/21/20 0000 by Tangela Zafar RN Incision 03/06/14; abdomen; 03/06/14 0000 by 09/21/20 111 9 by 09/21/20; 1119 Any Sierra, Skip Russo RN Lumbar/CSF Drain 03/06/14; Left; abdomen; 03/06/14 0000 by 09/21 1119 by 19 syriac bart drains; Deborah Barker, Enid Mei RN 09/21/20; 111 Lumbar/CSF Drain 03/06/14; Right; abdomen; 03/06/14 0000 by 09/09 05/30 1119 by (19 syriac bart drain); Elvia Johnson, Enid Latif RN (inserted in OR); 09/21/20; 1119 PIV 12/24/17; 09; 12/24/17 0926 by 09/21/20 1119 b y metacarpal vein (top of Bronwyn Rey F, C urtis, Enid F, RN hand), right; RN prby-fnh-[id number] catheter system; 22 gauge; janie koch rn; distraction, intradermal injection, tolerated well, appears comfortable; 0; 09/21/20; 1119 PIV 09/21/20; 0630; median 09/21/20 0630 by 09/21/20 1119 by cubital vein (antecubital Ana, Marga Trevino, RN Valdo, Enid Davis, YUMIKO fossa), right; xfgl-cmr-xgwnae catheter system; 20 gauge; T Ana; tolerated well (declines lido); 09/21/20; 1119 Supraglottic Mask Ventilation: Easy 09/21/20 0740 by 09/21/20 0917 by (1); LMA Type: iGel; LMA Sandy Huff, Sandy Tineo, Size: 3; Inserted by: KALEB Huff CRNA documented in this encounter Social History Tobacco Use Types Packs/Day Years Used Date Former Smoker Cigarettes 1 10 Quit: 05/10/18 73 Smokeless Tobacco: Never Used Alcohol Use Standard Drinks/Week Comments No 0 (1 standard drink = 0.6 oz pure alcoho l) Sex Assigned at Date Recorded Female 01/18/2021 7:28 AM EST documented as of this encounter OR Notes Anesthesia Postprocedure Evaluation - Berry Garcia MD - 09/21/2020 10:18 AM EDT Department of Anesthesiology Post-procedure Note Patient: Kiya Cummings Procedure Summary Date: 09/21/20 Room / [facility] OR Anesthesia Start: 731 Anesthesia Stop: 920 Procedures: OPEN TREATMENT OF HUMERAL SUPRACONDYLAR OR TRANSCONDYLAR FRACTURE, INCLUDES INTERNAL FIXATION WITHOUT INTERCONDYLAR EXTENSION (WRVU 13.15) (Left Arm) RADIAL HEAD, EXCISION (WRVU 6.42) (Left Arm) LATERAL COLLATERAL LIGAMENT REPAIR, ELBOW (WRVU 9.16) (Left Arm) Diagnosis: Closed bicondylar fracture of distal end of left humerus, initial encounter (left intraarticular distal humerus fracture) Surgeons: Nimco Ha MD Responsible Provider: Berry Garcia MD Anesthesia Type: general ASA Status: 2 All Anesthesia Providers: Anesthesiologist: Berry Garcia MD FITNESS PROFESSIONAL: Sandy Huff CRNA Vitals Value Taken Time BP 142/85 09/21/20 0945 Temp 36.4 ??C (97.6 ??F) 09/21/20 0927 Pulse 64 09/21/20 0947 Resp 18 09/21/20 0947 SpO2 92 % 09/21/20 0948 Pain Level 0 09/21/20 0930 Vitals shown include unvalidated device data. Patient Location: PACU/[facility] Level of Consciousness: Awake and Alert Pain Management: Satisfactory Analgesia PONV: None Cardiovascular Status: Hemodynamically Stable Respiratory Status: Stable Respiratory Status Postoperative Fluid Status: Intravascular EUvolemia Possible Anesthetic Complications: NONE apparent at time of evaluation Final Primary Anesthesia Type: General (The anesthetic type performed was the same as planned.) Comments: Anesthesia Procedure Notes - Marlon Juan MD - 09/21/2020 7:14 AM EDTAssociated Order(s): Anesthesia Block Anesthesia Block Date/Time: 09/21/2020 7:05 AM Performed by: Marlon Juan MD Authorized by: Stef Gill MD Start Time: 09/21/2020 7:00 AM End Time: 09/21/2020 7:05 AM Patient Location: Block Room Indication: Post-op Pain Control Post-op pain management at the request of surgeon. Block Type: Supraclavicular nerve block Laterality: Left Position: Supine and sitting Prep: Chlorhexidine, patient draped and mask, cap, sterile gloves, hand hygeine Skin Anesthetic: Skin Anesthetic: Lidocaine 1% dose: 2 Block Technique: SonoPlex 22 5 cm Ultrasound [...] Volume(s) Injected for Nerve Block: BUpivacaine 0.5%, 20 mL Nerve Sensory/MotorTest: Events: no complications Staff: Resident/FITNESS PROFESSIONAL:: Marlon Juan MD Attending Physician:: Stef Gill MD Notes: Procedure tolerated well by patient. Needle aspirated every 5cc of local anesthetic given, no evidence of intravascular needle placement throughout. Anesthesia Preprocedure Evaluation - Berry Garcia MD - 09/20/2020 10:05 PM EDT Images from the original note were not included. Pre-Anesthesia Evaluation for: Kiya Cummings a 70 y.o. female. Procedure(s): OPEN TREATMENT OF HUMERAL SUPRACONDYLAR OR TRANSCONDYLAR FRACTURE, INCLUDES INTERNAL FIXATION WITHOUT INTERCONDYLAR EXTENSION (WRVU 13.15) MODIFIER VARIAX 2 LOCKING MINI FRAGMENT JASE Patient Active Problem List Diagnosis ??? Phlebitis after infusion ??? Mild cognitive [...] DIAGNOSTIC performed by Caleb Tineo MD at [facility] ENDOSCOPY ??? PRO EXCISE EXCESS SKIN TISSUE, ABDOMEN N/A 03/06/2014 ABDOMINOPLASTY performed by Marcos Vance MD at [facility] MAIN OR ??? PRO UNLISTED PROCEDURE, MUSCULOSKELETAL [...] Ciprofloxacin ??? Macrodantin [Nitrofurantoin Macrocrystal] ??? Pramipexole Medications: MAR and/or home medications have been reviewed. Physical Exam: Preprocedure Vitals Current as of 09/20/20 2205 No BP, pulse, respiration, SpO2, or temperature recorded. Height: Weight: BMI: IBW: Airway Assessment: Mallampati: II TM distance: >3 FB Neck ROM: full Cardiovascular Assessment: system normal Pulmonary Assessment: pulmonary exam normal Dental Assessment: Misc Assessment: IV access: Peripheral line Last Filed Perioperative Cognitive Screening None Anesthesia Plan: ASA 2 general, with a(n) intravenous induction Kiya Cummings is a 70 y.o. female with a hx significant for asthma, hypothyroid, depression, obesity,LEONARD (bipap), DM2, hx of PE (takes eliquis) and HTN presenting for the following procedure(s): Procedure(s): OPEN TREATMENT OF HUMERAL SUPRACONDYLAR OR TRANSCONDYLAR FRACTURE, INCLUDES INTERNAL FIXATION WITHOUT INTERCONDYLAR EXTENSION (WRVU 13.15) MODIFIER VARIAX 2 LOCKING MINI FRAGMENT JASE Allergies: -- Sulfa (Sulfonamide Antibiotics) -- Hives -- Ciprofloxacin -- Macrodantin (Nitrofurantoin Macrocrystal) -- Pramipexole Anesthesia Hx: Grade 1 view with mac 3 blade in 2013. NPO status: adequate TTE 2017 Echo reveals normal LV EF, no significant valvular disease. Labs: No results for input(s): WBC, HGB, HCT, PLATELET in the last 7068 hours. No results for input(s): NA, K, CL, CO2, BUN, CREATININE in the last 7068 hours. No results for input(s): AST, ALT, ALKPHOS, BILITOT, BILIDIR in the last 7068 hours. No results for input(s): PT, INR, PTT in the last 168 hours. No results found for: ABORH Plan is for GA with ETT, standard ASA monitors, and adequate IV access. Regional anesthesia service to perform pre-operative upper extremity nerve block. Marlon Juan MD PGY4 ([place]-3), [employer] Teacher Pager #[phone] Region - Other Informed Consent: Anesthetic plan and risks discussed with patient and spouse. Plan discussed with FITNESS PROFESSIONAL. Anesthesia Screening documented in this encounter Plan of Treatment Upcoming Encounters Date Type Specialty Care Team Description 11/24/2021 Office Visit Neurology Gregg Lacy MD [place], [place] [address] (Wo rk) 04/06/2022 Appointment Radiology 04/06/2022 Office Visit Orthopaedics Wally Rouse MD [facility] ORTHOPAEDIC SURG [place], [place] [address] (Wo rk) documented as of this encounter Procedures Procedure Name Priority Date/Time Associated Diagnosis Comme nts ANESTHESIA BLOCK Routine 09/21/2020 7:05 AM Resul ts for this EDT procedure are i n the results section. documented in this encounter Results Anesthesia Block (09/21/2020 7:05 AM EDT) Narrative Stef Gill MD - 09/21/2020 7:05 AM EDT Marlon Juan MD ? 09/21/2020 ??7:16 AM Anesthesia Block Date/Time: 09/21/2020 7:05 AM Performed by: Marlon Juan M D Authorized by: Stef Gill MD Start Time: ??09/21/2020 7:00 AM End Time: ??09/21/2020 7:05 AM Patient Location: ??Block Room Indication: ??Post-op Pain Control Post-op pain management at the request o f surgeon. ?? Block Type: ??Supraclavicular nerve bloc k Laterality: ??Left Position: ??Supine and sitting Prep: ??Chlorhexidine, patient draped an d mask, cap, sterile gloves, hand hygeine Skin Anesthetic: ??Skin Anesthetic: ??Lidocaine 1% ??dose: ??2 Block Technique: ?? SonoPlex ?? 22 ?? [...] Injected for Nerve Block: ?? BUpivacaine 0.5%, 20 mL Nerve Sensory/MotorTest: ??Events: no complications ?? Staff: ??Resident/FITNESS PROFESSIONAL:: ??Maria Elena Juan MD ??Attending Physician:: ??Juan Gill MD Notes: ?? Procedure tolerated well by patient. Needle aspirated every 5cc of local anesthetic given, no evidence of i ntravascular needle placement throughout. Stef Gill MD [employer] [facility] documented in this encounter Visit Diagnoses Not on filedocumented in this encounter Administered Medications Inactive Administered Medications - up to 3 most recent administrations Medication Order MAR Action Action Date Dose Rate Site BUpivacaine (pf) (Marcaine) (5 Given 09/21/2020 7:05 AM EDT 20 m Ls mg/mL) 0.5% injection Perineural, Starting on Sun09/21/20 at 0705, Until Sun09/21/20 at 0705, Anesthesia Intra-op, Routine ceFAZolin (Ancef) 1 g in dextrose 5% 50 mL Given 09/21/2020 7:53 AM EDT 2 g infusion Intravenous, PRN, Starting on Sun09/21/20 at 0753, Until Sun09/21/20 at 0921, Administer over 30 Minutes, Anesthesia Intra-op ePHEDrine sulfate (5 mg/mL) multi-dose Given 09/21/2020 8:15 AM EDT 10 mg injection Intravenous, PRN, Starting on Sun09/21/20 at 0757, Until Sun09/21/20 at 0921, Anesthesia Intra-op, Routine Given 09/21/2020 7:57 AM EDT 10 mg fentaNYL (pf) (50 mcg/mL) multi-dose Given 09/21/2020 9:15 AM ED T 25 mcg injection Intravenous, PRN, Starting on Sun09/21/20 at 0803, Until Sun09/21/20 at 09, Anesthesia Intra-op, Routine Given 09/21/2020 8:54 AM EDT 25 mcg Given 09/21/2020 8:03 AM EDT 25 mcg lidocaine (pf) (Xylocaine) (20 mg/mL) 2% Given 09/21/2020 7:40 A M EDT 50 mg injection syringe Intravenous, PRN, Starting on Sun09/21/20 at 0740, Until Sun09/21/20 at 0921, Anesthesia Intra-op, Routine ondansetron (pf) (Zofran) (2 mg/mL) inje ction Given 09/21/2020 7:51 AM EDT 4 mg Intravenous, PRN, Starting on Sun09/21/20 at 0751, Until Sun09/21/20 at 09, Anesthesia Intra-op, Routine propofoL (Diprivan) 10 mg/mL bolus injection Given 7:42 AM EDT 50 mg (Anesthesia) Intravenous, PRN, Starting on Sun09/21/20 at 0740, Until Sun09/21/20 at 0921, Anesthesia Intra-op Given 09/21/2020 7:40 AM EDT 200 mg propofoL (Diprivan) infusion New Bag 09/21/2020 7:45 AM 30 mcg/kg/min 19.998 mL/hr Intravenous, CONTINUOUS PRN, EDT Starting on Sun09/21/20 at 0745, Until Sun09/21/20 at 0921, Anesthesia Intra-op, Routine documented in this encounter Care Teams Assortment Planner Relationship Specialty Start Date End Date Ekaterina Omer MD PCP - General General Internal Medicine 08/23/18 [address] [place] [address] documented as of this encounter
--- OUTSIDE RECORDS SUMMARY | 2021-10-13 15:51 | XMS_ITS | Encounter Summary ---
:1950 Author Organization [facility] [place] [address] Care Team Providers Name Role Phone Ekaterina Omer MD Primary Care Provider Encounter Details Date Type Department Care Team Description 09/21/2020 Telephone Orthopaedics at [facility] Storm Sahu MD [facility] [place] [address] ORTHOPAEDIC SURGERY [phone] [place], [place] [address] (Wo rk) Social History Tobacco Use Types Packs/Day Years Used Date Former Smoker Cigarettes 1 10 Quit: 05/10/18 73 Smokeless Tobacco: Never Used Alcohol Use Standard Drinks/Week Comments No 0 (1 standard drink = 0.6 oz pure alcoho l) Sex Assigned at Date Recorded Female 01/18/2021 7:28 AM EST documented as of this encounter Miscellaneous Notes Telephone Encounter - Payton Rawls MSW - 09/22/2020 4:24 PM EDT DOCUMENTATION FOR VNA SERVICES (INCLUDING THOSE PATIENTS WITH MEDICARE COVERAGE REQUIRING HOME VNA SERVICES AND/OR HOSPICE SERVICES) PATIENT'S LOCATION: Kiya Cummings [address] [facility] [id number] (home) Cell: Telephone Information: ?? In discussion with the attending physician, it is certified that this patient is under their careand that they, or a Nurse Practitioner,Clinical Nurse specialist or Physician Clinical Systems Educator who is working directly with them, had a face to face encounter that meets the physician face to face encounter requirements with this patient on 09/21/2020 ?? The encounter with the patient was in whole, or in part, for the following medical condition, which is the primary reason for home health care services: Closed fracture of left distal humerus ?? In discussion with the provider, it is certified that, based on their findings, the following services are medically necessary for home health services. ?? To provide the following care/treatments with the clinical findings supporting the need for services as follows: HOME CARE ORDERS: RN ORDERS:Assess wound or incision, vital signs, cardiopulmonary status, nutrition, hydration, elimination, meds effectiveness and management; reinforce education re health issues PT ORDERS: Continue rehab for endurance, gait stability and strength with mobility and transfers. Home safety evaluation. Home exercise program if appropriate. OT: assess and continue rehab for managing ADL's. HOME HEALTH CARE AGENCY: [facility] Start of care: 09/22/2020 FOR MEDICARE ONLY: (please delete this section if not Medicare) In discussion with the attending physician, it is certified that the clinical findings support that this patient is homebound because absences from home require considerable and taxing effort due to: pain, instability and infirmity Please note that any additional orders needs or changes will need to be obtained from this patient'sPCP: Ekaterina Omer MD [address] / [place] [address] All VNA agencies which cover the area of patient's residence have been reviewed, either verbally or in writing, and patient/family have chosen the home health care agency noted documented in this encounter Plan of Treatment Upcoming Encounters Date Type Specialty Care Team Description 11/24/2021 Office Visit Neurology Gregg Lacy MD [place] [address] (Wo rk) 04/06/2022 Appointment Radiology 04/06/2022 Office Visit Orthopaedics Wally Rouse MD [facility] ORTHOPAEDIC SURG [place], [place] [address] (Wo rk) documented as of this encounter Visit Diagnoses Not on filedocumented in this encounter Care Teams Swiss Type Screw Machine Operator Relationship Specialty Start Date End Date Ekaterina Omer MD PCP - General General Internal Medicine 08/23/[address] [place] [id number] documented as of this encounter
--- OUTSIDE RECORDS SUMMARY | 2021-10-13 15:51 | XMS_ITS | Encounter Summary ---
:1950 Author Organization [facility] [place] [address] Care Team Providers Name Role Phone Ekaterina Omer MD Primary Care Provider Encounter Details Date Type Department Care Team Description 10/04/2020 Telephone Anesthesiology Mary Ellen Gan MD [facility] [place] [address] ANESTHESIOLOGY DEPT [phone] [place], [place] [address] (Wo rk) Social History Tobacco Use Types Packs/Day Years Used Date Former Smoker Cigarettes 1 10 Quit: 05/10/18 73 Smokeless Tobacco: Never Used Alcohol Use Standard Drinks/Week Comments No 0 (1 standard drink = 0.6 oz pure alcoho l) Sex Assigned at Date Recorded Female 01/18/2021 7:28 AM EST documented as of this encounter Progress Notes Mary Ellen Gan MD - 10/04/2020 9:06 AM EDT REGIONAL NERVE BLOCK FOLLOW-UP I [...] 11/24/2021 Office Visit Neurology Gregg Lacy MD [place], [place] [address] (Wo rk) 04/06/2022 Appointment Radiology 04/06/2022 Office Visit Orthopaedics Wally Rouse MD [facility] ORTHOPAEDIC SURG [place], [place] [address] (Wo rk) documented as of this encounter Visit Diagnoses Not on filedocumented in this encounter Care Teams Deputy Manager Relationship Specialty Start Date End Date Ekaterina Omer MD PCP - General General Internal Medicine 08/23/18 [address] [place] [address] documented as of this encounter
--- OUTSIDE RECORDS SUMMARY | 2021-10-13 15:51 | XMS_ITS | Encounter Summary ---
:1950 Author Organization [facility] [place] [address] Care Team Providers Name Role Phone Ekaterina Omer MD Primary Care Provider Encounter Details Date Type Department Care Team Description 09/22/2020 Telephone Orthopaedics at [facility] Jasper Hill MD [facility] [place] [address] ORTHOPAEDIC SURGERY [phone] [place], [place] [address] (Wo rk) Social History Tobacco Use Types Packs/Day Years Used Date Former Smoker Cigarettes 1 10 Quit: 05/10/18 73 Smokeless Tobacco: Never Used Alcohol Use Standard Drinks/Week Comments No 0 (1 standard drink = 0.6 oz pure alcoho l) Sex Assigned at Date Recorded Female 01/18/2021 7:28 AM EST documented as of this encounter Miscellaneous Notes Telephone Encounter - Jasper Hill MD - 09/22/2020 7:54 AM EDT Brief Orthopaedic Surgery Progress Note I received a phone call from Ms. Cummings's daughter. She reports that her mother had surgery with Dr. Ha yesterday and is having significant pain in her left (operative) elbow. The daughter reports that there is no numbness or tingling or change in the neurovascular status of her mother's left hand. She states that her mother is complaining that the Marcelo wrap is too tight. She does report that they have been taking the Tylenol as scheduled and that they had taken some oxycodone from the time of her original injury. They have yet to supervisor opening and picking her postoperative oxycodone prescription as the pharmacy opens at 9 AM. I provided recommendations to elevate the operative extremity above the level of the heart to help reduce swelling which in turn should improve pain. I also recommended that they may ice the operative extremity help with pain. I provided instructions that she may loosen the Marcelo bandage which may also help improve her mother's symptoms of feeling that the wrap is too tight. I also stated that if she did not feel comfortable listening this that she was welcome to come to resident clinic here at [facility], however they live 2 hours away. I did also state that if they are not willing to make the drive here, that they may go to a local emergency room and have the providers there loosen the Marcelo bandage. I reviewed the instructions with the patient's daughter and encouraged her to supervisor opening and picking her postoperative prescription when the pharmacy opens and to take the pain medication as prescribed. This telephone encounter was routed to the appropriate provider. Jasper Hill MD P: [phone] documented in this encounter Plan of Treatment Upcoming Encounters Date Type Specialty Care Team Description 11/24/2021 Office Visit Neurology Gregg Lacy MD [place], [place] [address] (Wo mandi) 04/06/2022 Appointment Radiology 04/06/2022 Office Visit Orthopaedics Wally Rouse MD [facility] ORTHOPAEDIC SURG [place], [place] [address] (Wo mandi) documented as of this encounter Visit Diagnoses Not on filedocumented in this encounter Care Teams Drier Belt Conveyor Relationship Specialty Start Date End Date Ekaterina Omer MD PCP - General General Internal Medicine 08/23/18 [address] [place] [address] documented as of this encounter
--- OUTSIDE RECORDS SUMMARY | 2021-10-13 15:51 | XMS_ITS | Encounter Summary ---
:1950 Author Organization [facility] [place] [address] Care Team Providers Name Role Phone Ekaterina Omer MD Primary Care Provider Encounter Details Date Type Department Care Team Description 09/21/2020 Surgery Main Operating Room [place] [facility] OPE N TREATMENT OF HUMERAL Jessica Lu MD SUPRACONDYLAR OR [facility] TRANSCONDYLAR FRACTURE, [place] [address] INCLUDES INTERNAL Drive ORTHOPAEDIC [place] [address] [place] [address] INTERCONDYLAR EXTENSION [phone] (Wo rk) (WRVU 13.15) Social History Tobacco Use Types Packs/Day Years [...] Sign Reading Time Taken Comments Blood Pressure 142/85 09/21/2020 9:45 AM EDT Pulse 66 09/21/2020 9:45 AM EDT Temperature 36.4 ??C (97.6 ??F) 09/21/2020 9:27 AM EDT Respiratory Rate 15 09/21/2020 9:45 AM EDT Oxygen Saturation 91% 09/21/2020 9:45 AM EDT Inhaled Oxygen Concentration - [...] to facilitate a bowel movement. MiraLAX, an kryg-uix-mxjrzrf medication can also be used if needed [...] decrease wound sensitivity. Call your doctor at [phone] if you develop: 1. fevers greater than [...] You will have follow up appointments at [facility] as indicated in Future Appointment and Orders. [...] Time Provider Department Center 10/08/2020 1:00 PM [facility] DX ROOM 1 Xray [facility] Rad 10/08/2020 2:00 PM Dona Mary PA [facility] [place] 3C [facility] 12/14/2020 1:30 PM William Jones MD [facility] OBG 5L [facility] documented in this encounter Medications at Time [...] escorted out of department via wheelchair with GUN REPAIR CLERK. documented in this encounter H&P Notes Storm [...] Sahu MD - 09/21/2020 7:55 AM EDT [facility] Operative Note Patient Name: Kiya Cummings : [id number] MR#: [id number] Case Date: 09/21/2020 Surgeon: Surgeon(s) and Role: [...] in the preoperative holding area, a green [place] creek was placed in the patient's left upper [...] 11/24/2021 Office Visit Neurology Gregg Lacy MD [place], [place] [address] (Wo rk) 04/06/2022 Appointment Radiology 04/06/2022 Office Visit Orthopaedics Wally Rouse MD [facility] ORTHOP[facility]IC SURG [place], [place] [address] (Wo rk) documented as of [...] initial INTERNAL FIXATION encounter WITHOUT INTERCONDYLAR EXTENSION (WRVU 13.15) ORIF DISTAL HUMERUS Routine 09/21/2020 5:52 [...] Organization Address City/State/ZIP Code Phon e Number [place], [place] documented in this encounter Visit Diagnoses Diagnosis Closed bicondylar fracture of distal end of left humerus, initial encounter Closed fracture of left distal humerus s /p ORIF [place] 09/21/20 Closed fracture of unspecified part of l ower end of humerus Closed bicondylar fracture of distal end of [...] mg 0.4-0.6 mg, Intravenous, EVERY 10 MIN NJ N, Starting on Sun09/21/20 at 0927, Until [...] at 0612, Until Sun09/21/20 at 1333, for discomfor t with PIV insertion, Day [...] sodium chloride 0.9 % (flush) (BD PosiFl us Normal Saline 0.9) flush 5-20 mL 5-20 mL, Intravenous, EVERY 1 MIN PRN, S tarting on Sun09/21/20 at 0612, Until Sun09/21/20 at 1333, flush, Flush pertains t o all indwelling lines. Flush per protocol found in the job aid using the link provided on this m edication record., Day of Surgery (Day of Procedure), Routine vancomycin (Vancocin) injection Given 09/21/2020 8:50 AM EDT 1 g 19- S urgical Site ONCE PRN, Starting on Sun09/21/20 at 0850, Until Sun09/21/20 at 1333, Intra-Operative (Intra-Procedure), Routine documented in this encounter Active and Recently Administered Medications Times are shown in EDT. Scheduled Medication Order 09/19/2020 09/20/2020 09/21/2020 acetaminophen (Tylenol) tablet 1,000 mg (COMPLETED) 0616 (Given - Provider: Marga Perez RN) 1,000 mg, Oral, ONCE, 1 dose, On 09/09 at 0630, Administer with SIP of H2O only., Day of Surgery (Day of Procedure), Routine Continuous Medication Order 09/19/2020 09/20/2020 09/21/2020 lactated ringers infusion 0630 ( New Bag - Provider: Marga Perez RN) 1,000 mL, at 100 mL/hr, Intravenous, [...] mg 0.4-0.6 mg, Intravenous, EVERY 10 MIN NJ N, Starting on Sun09/21/20 at 0927, Until [...] Provider: Marga Perez RN)0659 (Given - Provider: Marga Perez RN) 1 mg, Intravenous, EVERY 5 [...] Routine documented in this encounter Care Teams Pulp Cooker Relationship Specialty Start Date End Date Ekaterina Omer MD PCP - General General Internal Medicine 08/23/18 [address] [place], [place] [id number] documented as of this encounter
--- OUTSIDE RECORDS SUMMARY | 2021-10-13 15:51 | XMS_ITS | Encounter Summary ---
:1950 Author Organization [facility] [place] [address] Care Team Providers Name Role Phone Ekaterina Omer MD Primary Care Provider Encounter Details Date Type Department Care Team Description 09/30/2020 Notes Only Obstetrics and Gynecology at [place] [address] Social History Tobacco Use Types Packs/Day Years Used Date Former Smoker Cigarettes 1 10 Quit: 05/10/18 73 Smokeless Tobacco: Never Used Alcohol Use Standard Drinks/Week Comments No 0 (1 standard drink = 0.6 oz pure alcoho l) Sex Assigned at Date Recorded Female 01/18/2021 7:28 AM EST documented as of this encounter Progress Notes Danielle Sotelo CCMA - 09/30/2020 2:37 PM EDT Review of Bladder Diary Dates diary completed: no dates noted on bladder diaries Volume intake: 2129cc to 2602cc Volume output: 1360cc to 2543cc Number of daytime voids: 5 to 8 Number of nocturia events: 1 to 2 Functional bladder capacity: 591cc Nocturia Index: <2 Number of leakage events per day: 6 small with urge--waking up, after eating 3 small without urge--ate 2 medium with urge--after eating 4 small no urge indicated--sneezing 1 large no urge indicated 3 no amount indicated with urge 3 no amount indicated without urge Other notable findings (e.g. caffeine consumption, etc.) Milk, soda, coffee: 237cc to 1065cc Impression: ?? 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 Use this record as baseline for planned SNM stage 1 and 2 Danielle Sot[facility] William Jones MD Division of Female Pelvic Medicine & Reconstructive Surgery documented in this encounter Plan of Treatment Upcoming Encounters Date Type Specialty Care Team Description 11/24/2021 Office Visit Neurology Gregg Lacy MD [place], [place] [address] (Wo rk) 04/06/2022 Appointment Radiology 04/06/2022 Office Visit Orthopaedics Wally Rouse MD [facility] ORTHOPAEDIC SURG [place], [place] [address] (Wo rk) documented as of this encounter Visit Diagnoses Not on filedocumented in this encounter Care Teams Pre Sales Technical Consultant Relationship Specialty Start Date End Date Ekaterina Omer MD PCP - General General Internal Medicine 08/23/18 [address] [place] [address] documented as of this encounter
--- OUTSIDE RECORDS SUMMARY | 2021-10-13 15:51 | XMS_ITS | Encounter Summary ---
:1950 Author Organization [facility] [place] [address] Care Team Providers Name Role Phone Ekaterina Omer MD Primary Care Provider Encounter Details Date Type Department Care Team Description 09/27/2020 Telephone Anesthesiology Mary Ellen Gan MD [facility] [place] [address] ANESTHESIOLOGY DEPT [phone] [place], [place] [address] (Wo rk) Social History Tobacco Use Types Packs/Day Years Used Date Former Smoker Cigarettes 1 10 Quit: 05/10/18 73 Smokeless Tobacco: Never Used Alcohol Use Standard Drinks/Week Comments No 0 (1 standard drink = 0.6 oz pure alcoho l) Sex Assigned at Date Recorded Female 01/18/2021 7:28 AM EST documented as of this encounter Progress Notes Mary Ellen Gan MD - 09/27/2020 10:06 AM EDT REGIONAL NERVE BLOCK FOLLOW-UP I spoke to patient via telephone. She denies residual weakness. She does report some numbness in herhand, which does not extend past the wrist. She reports all fingers are affected. She reports that this has been improving overall. Will contact her again to ensure continued resolution of nerve block. If there are any questions or concerns regarding the nerve block, please do not hesitate to contact the regional anesthesia team. documented in this encounter Plan of Treatment Upcoming Encounters Date Type Specialty Care Team Description 11/24/2021 Office Visit Neurology Gregg Lacy MD [place], [place] [address] (Wo rk) 04/06/2022 Appointment Radiology 04/06/2022 Office Visit Orthopaedics aWlly Rouse MD [facility] ORTHOPAEDIC SURG [place], [place] [address] (Wo rk) documented as of this encounter Visit Diagnoses Not on filedocumented in this encounter Care Teams Bulk Station Operator Relationship Specialty Start Date End Date Ekaterina Omer MD PCP - General General Internal Medicine 08/23/18 [address] [place] [address] documented as of this encounter
--- OUTSIDE RECORDS SUMMARY | 2021-10-13 15:51 | XMS_ITS | Encounter Summary ---
:1950 Author Organization [facility] [place] [address] Care Team Providers Name Role Phone Ekaterina Omer MD Primary Care Provider Encounter Details Date Type Department Care Team Description 11/09/2020 Notes Only Obstetrics and Gynecology [place] [address] [place] [address] [phone] Social History Tobacco Use Types Packs/Day Years [...] 11/24/2021 Office Visit Neurology Gregg Lacy MD [place], [place] [address] (Wo rk) 04/06/2022 Appointment Radiology 04/06/2022 Office Visit Orthopaedics Wally Rouse MD [facility] ORTHOPAEDIC SURG [place], [place] [address] (Wo rk) documented as of this encounter Visit Diagnoses Not on filedocumented in this encounter Care Teams Cultural Centre Manager Relationship Specialty Start Date End Date Ekaterina Omer MD PCP - General General Internal Medicine 08/23/18 [address] [place] [address] documented as of this encounter
--- OUTSIDE RECORDS SUMMARY | 2021-10-13 15:51 | XMS_ITS | Encounter Summary ---
:1950 Author Organization [facility] [place] [address] Care Team Providers Name Role Phone Ekaterina Omer MD Primary Care Provider Reason for Referral Physical Therapy (Routine) - Specialty Diagnoses / Procedures Referred By Contact Refer red To Contact Diagnoses Closed fracture of distal end of left humerus with routine healing, unspecified fracture morphology, subsequent encounter Closed bicondylar fracture of distal end of left humerus, initial encounter Dona Mary PA [facility] [place] [address] Referral ID Status Reason Start Date Expiration Date Visits V isits Requested Authorized [id number] Evaluate and 10/08/2020 04/06/2021 12 12 Treat Reason for Visit Reason Comments Follow Up Surgery 09-21-20 left elbow fx Consultation (Urgent) - Closed Specialty Diagnoses / Procedures Referred By Contact Refer red To Contact Orthopaedics Diagnoses severely comminuted distal humerus and left radial head fx-DOI-09/08/20 Daly Montano MD [facility] [address] OR [address] [place], [place] [address] [place] [phone] Fax: Referral ID Status Reason Start Date Expiration Date Visits V isits Requested Authorized [id number] Closed Consult, Test 09/09/2020 09/09/2021 6 6 & [facility] PCP Updated and/or Approved Encounter Details Date Type Department Care Team Description 10/08/2020 Office [place] [facility] Dona Mary Closed fracture of distal en d of left humerus with routine healing, unspecified fracture morphology, subsequent encounter; [facility] CHRISTOPHE Gan Closed bicondylar fracture of distal end of left humerus, [place] [address] CENTER [phone] ORTHOPAEDIC SURGERY [place], [place] [address] Social History Tobacco Use Types Packs/Day Years Used Date Former Smoker Cigarettes 1 Quit: 05/10/18 73 Smokeless Tobacco: Never Used Alcohol Use Standard Drinks/Week Comments No 0 (1 standard drink = 0.6 oz pure alcoho l) Sex Assigned at Date Recorded Female 01/18/2021 7:28 AM EST documented as of this encounter Last Filed Vital Signs Vital Sign Reading Time Taken Comments Blood Pressure 136/60 10/08/2020 1:53 PM EDT Pulse 71 10/08/2020 1:53 PM EDT Temperature - - Respiratory Rate - - Oxygen Saturation - - Inhaled Oxygen Concentration - - Weight 111.1 kg (245 lb) 10/08/2020 1:53 PM EDT Height 160.7 cm (5' 3.25) 10/08/2020 1:53 PM EDT Body Mass Index 43.06 10/08/2020 1:53 PM EDT documented in this encounter Progress Notes Dona Mary PA - 10/08/2020 2:00 PM EDT PATIENT NAME: Kiya Cummings AGE: 70 y.o. MR#: [id number] DATE OF VISIT: 10/08/2020 CHIEF COMPLAINT: 2 week Hospital check post 09/21/20 (Gitajn) LEFT intraarticular distal humerus [...] today for evaluation of the LEFT elbow. Kiya Cummings has been doing ok since surgery. She has been struggling with her pain level. She has been taking tylenol 1000 mg TID as well as one Oxycodone daily. She was last given a prescription for Oxycodone 5 mg Q 6 hours however was afraid to run out. She has 14 pills left. She has been compliant with NWB restrictions and denies fever, chills, drenching night sweats, calf pain or tightness. Taking Eloquis as baseline taking once per day, taking in the evenin PE Past medical history: Patient Active Problem List [...] Types: Cigarettes Quit date: 05/10/1972 Years since quittin.4 ??? Smokeless tobacco: Never Used Substance Use Topics ??? Alcohol use: No Review of systems: No chest pain or shortness of breath No fevers, night sweats or chills Vital signs: Blood pressure 136/60, pulse 71, height 160.7 cm (5' 3.25), weight 111.1 kg (245 lb). Physical exam: Ms. Cummings is a 70 y.o. female who is alert and oriented. She is in no acute discomfort and is resting comfortably in the exam room. Lateral incision looks great. No keya-incisional erythema noted No bogginess or drainage to palpation about the incision Skin feels no warmer than surrounding tissue I am not able to part the skin with gentle palpation Neuro: Median: pad of 2cd digit intact [...] ofthe comminuted radial head, headless screw placed. No complication noted. Assessment and plan:: 70 y.o. year-old female now roughly 2 weeks out post 09/21/20 (Gitajn) LEFT intraarticular distal humerus [...] Kiya Cummings's healing. We reviewed the imaging together XR images of the LEFT distal humerus show reduced capitellar shear fracture with K wire, excision of the comminuted radial head, headless screw placed. No complication noted. Clinically Kiya Cummings incision looks great today. Sutures/josé manuel were removed today in clinic. The pt handled this well. Steri strips need to remain in place for at least one week. Showers are ok, however please do not submerge the incision until thescabs have been replaced by scars. This plan was discussed with the patient and they are in agreement. All of the patient's questions were answered. The patient understand to contact us if they have any other questions or concerns. FU: 4 weeks with repeat images of the LEFT elbow, ordered Dona Mary PA-C The above dictation was made with voice recogonition software documented in this encounter Plan of Treatment Upcoming Encounters Date Type Specialty Care Team Description 11/24/2021 Office Visit Neurology Gregg Lacy MD [place], [place] [address] (Wo rk) 04/06/2022 Appointment Radiology 04/06/2022 Office Visit Orthopaedics Wally Rouse MD [facility] ORTHOPAEDIC SURG [place], [place] [address] (Wo rk) Scheduled Referrals Name Type Priority Associated Diagnoses Order S chedule Referral to Outpatient Referral Routine Closed fracture of Or dered: Physical Therapy distal end of left 10/08 humerus with routine healing, unspecified fracture morphology, subsequent encou nter Closed bicondylar fracture of distal end of left humerus, initial encounter documented as of this encounter Results XR [...] who have questions please contact the health managed care provider that requested your imaging first. ? Electronically signed by: Екатерина rollins MD, [facility] ([phone]), at 10/08/2020 1:25 PM Narrative 10/08/2020 1:25 [...] EXAMINATION: XR ELBOW 3 VIEWS LEFT ([facility]) CLINICAL HISTORY: distal humerus ORIF TECHNIQUE: 3 [...] ho have questions please contact the health managed care provider that requested your imaging first. Electronically signed by: Екатерина rollins MD, [facility] ([phone]), at 10/08/2020 1:25 PM Fredi Gallegos MD IMG DX ORDERABLES documented in this encounter Visit Diagnoses Diagnosis Closed fracture of distal end of left hu merus with routine healing, unspecified fracture morphology, subsequent encounte r Closed bicondylar fracture of distal end of left humerus, initial encounter Closed fracture of distal end of left hu merus with routine healing, unspecified fracture morphology, subsequent encounte r Closed bicondylar fracture of distal end of left humerus, initial encounter documented in this encounter Care Teams International Account Manager Relationship Specialty Start Date End Date Ekaterina Omer MD PCP - General General Internal Medicine 08/23/18 [address] [place] [address] documented as of this encounter
--- OUTSIDE RECORDS SUMMARY | 2021-10-13 15:51 | XMS_ITS | Encounter Summary ---
:1950 Author Organization [facility] [place] [address] Care Team Providers Name Role Phone Ekaterina Omer MD Primary Care Provider Encounter Details Date Type Department Care Team Description 10/28/2020 Telephone Orthopaedics at [facility] Dona Mary [place] [facility] [place] [address] ORTHOPAEDIC SURGERY [phone] [place], [place] [address] (Wo rk) Social History Tobacco [...] 11/24/2021 Office Visit Neurology Gregg Lacy MD [place], [place] [address] (Wo rk) 04/06/2022 Appointment Radiology 04/06/2022 Office Visit Orthopaedics Wally Rouse MD [facility] ORTHOPAEDIC SURG [place], [place] [address] (Wo rk) documented as of this encounter Results XR Elbow 3 Views Left (GENERIC) (11/08/2020 9:18 AM EDT) Anatomical Region Laterality Modality Elbow Left Digital Radiography Specimen (Source) Anatomical Location Collection Method / Collectio n Time Received Time / Laterality Volume Impressions 11/08/2020 11:51 AM EDT Healing fractures of the left elbow. Thank you for letting us participate in the care of this patient. ??If you are a health care provider and have any questi ons regarding this report, please contact the number below. ??For patients who have questions please contact the health career development counselor that requested your imaging first. ? Narrative 11/08/2020 11:51 AM EDT EXAMINATION: XR ELBOW 3 VIEWS LEFT (GENERIC) CLINICAL HISTORY: left elbow fx TECHNIQUE: AP, oblique and lateral of the left elbo w. COMPARISON: October 08, 2020 September 15, 2020 FINDINGS: The previously present splint has been r emoved. A fracture of the radial neck is present . Fracture fragments project adjacent to the neck. Fractures of the distal humerus have bee n repaired with multiple pins. A suture anchor projects in the lateral epicondyl e. Alignment at the fracture site is not changed. There has been interval develop ment of callus. Procedure Note Salvatore Sommers MD - 11/08/2020 EXAMINATION: XR ELBOW 3 VIEWS LEFT (GENE [facility]) CLINICAL HISTORY: left elbow fx TECHNIQUE: AP, oblique and lateral of the left elbo w. COMPARISON: October 08, 2020 September 15, 2020 FINDINGS: The previously present splint has been r emoved. A fracture of the radial neck is present . Fracture fragments project adjacent to the neck. Fractures of the distal humerus have bee n repaired with multiple pins. A suture anchor projects in the lateral epicondyl e. Alignment at the fracture site is not changed. There has been interval develop ment of callus. IMPRESSION Healing fractures of the left elbow. Thank you for letting us participate in the care of this patient. If you are a health care provider and have any questi ons regarding this report, please contact the number below. For patients w ho have questions please contact the health career development counselor that requested your imaging first. Nimco Ha MD IMG DX ORDERABLES documented in this encounter Visit Diagnoses Diagnosis Closed bicondylar fracture of distal end of left humerus, initial encounter Closed bicondylar fracture of distal end of left humerus, initial encounter documented in this encounter Care Teams Sourcing Internship Relationship Specialty Start Date End Date Ekaterina Omer MD PCP - General General Internal Medicine 08/23/18 [address] [place] [address] documented as of this encounter
--- OUTSIDE RECORDS SUMMARY | 2021-10-13 15:51 | XMS_ITS | Encounter Summary ---
:1950 Author Organization [facility] [place] [address] Care Team Providers Name Role Phone Ekaterina Omer MD Primary Care Provider Reason for Visit Reason Onset Date Comments Post-op Problem 09/22/2020 Encounter Details Date Type Department Care Team Description 09/22/2020 Telephone Orthopaedics at [facility] Sandy Gillis, Post-op Problem [facility] [place] [address] Social History Tobacco Use Types Packs/Day Years Used Date Former Smoker Cigarettes 1 10 Quit: 05/10/18 73 Smokeless Tobacco: Never Used Alcohol Use Standard Drinks/Week Comments No 0 (1 standard drink = 0.6 oz pure alcoho l) Sex Assigned at Date Recorded Female 01/18/2021 7:28 AM EST documented as of this encounter Miscellaneous Notes Telephone Encounter - Sandy Gillis Uriel - 09/22/2020 11:27 AM EDT Images from the original note were not included. [facility]NA from [facility] calls to report that Kiya is having severe pain s/p humeral head ORIF DOS 09/21/20 (Gitjan). I confirmed that Kiya was taking all medications as prescribed (tylenol 1000 TID and oxycodone 5 mgq4h). VNA states that daughter had loosened the splint but Kiya was unable to elevate her arm or ice due to pain. VNA also reports that they did waste picker additional oxycodone this morning at the pharmacy. Re-iterated Dr. Hill's recommendation to seek care at ED if pain becomes unmanageable. Explained that the first 5 days or so post- surgery will be the most difficult, but it is important to elevate and ice to help reduce swelling and as a result, pain. Patient may need increased pain medication as 5mg Oxycodone is having little effect. Could consider an increase to Oxycodone 7.5 mg q4h to see if that provides relief. Patient was on hydromorphone 2 mgpre-operatively for her fracture. Expecting return call if symptoms remain unchanged and patient is unable to tolerate elevation and ice. documented in this encounter Plan of Treatment Upcoming Encounters Date Type Specialty Care Team Description 11/24/2021 Office Visit Neurology Gregg Lacy MD [place], [place] [address] (Wo rk) 04/06/2022 Appointment Radiology 04/06/2022 Office Visit Orthopaedics Wally Rouse MD [facility] ORTHOPAEDIC SURG [place], [place] [address] (Wo rk) documented as of this encounter Visit Diagnoses Not on filedocumented in this encounter Care Teams Asphalt Paving Supervisor Relationship Specialty Start Date End Date Ekaterina Omer MD PCP - General General Internal Medicine 08/23/18 [address] [place] [address] documented as of this encounter
--- OUTSIDE RECORDS SUMMARY | 2021-10-13 15:51 | XMS_ITS | Encounter Summary ---
:1950 Author Organization [facility] [place] [address] Care Team Providers Name Role Phone Ekaterina Omer MD Primary Care Provider Encounter Details Date Type Department Care Team Description 11/08/2020 Hospital Encounter XRay at [facility] Nimco Ha Closed bicondylar [address] Lazara MD fracture of distal [place], [place] [facility] end of left hum erus, [id number] CENTER initial encounter [phone] [place] [address] Social History Tobacco Use Types Packs/Day Years [...] 11/24/2021 Office Visit Neurology Gregg Lacy MD [place], [place] [address] (Wo rk) 04/06/2022 Appointment Radiology 04/06/2022 Office Visit Orthopaedics Wally Rouse MD [facility] ORTHOPAEDIC SURG [place], [place] 0[address] (Wo rk) documented as of this encounter Procedures Procedure Name Priority Date/Time Associated Diagnosis Comme nts XR ELBOW 3 VIEWS Routine 11/08/2020 9:18 AM Closed bicondylar Results for this LEFT [...] have questions please contact the health career professional that requested your imaging first. ? Electronically signed by: Malik Self, [facility] ([phone]), at 11/08/2020 11:51 AM Narrative 11/08/2020 11:51 AM EDT EXAMINATION: XR [...] have questions please contact the health career professional that requested your imaging first. Electronically signed by: Malik Self, [facility] ([phone]), at 11/08/2020 11:51 AM Nimco Ha MD IMG DX ORDERABLES documented in this encounter Visit Diagnoses Diagnosis Closed bicondylar fracture of distal end of left humerus, initial encounter documented in this encounter Care Teams Slot Attendant Relationship Specialty Start Date End Date Ekaterina Omer MD PCP - General General Internal Medicine 08/23/18 [address] [place] [address] documented as of this encounter
--- OUTSIDE RECORDS SUMMARY | 2021-10-13 15:51 | XMS_ITS | Encounter Summary ---
:1950 Author Organization [facility] [place] [address] Care Team Providers Name Role Phone Ekaterina Omer MD Primary Care Provider Encounter Details Date Type Department Care Team Description 12/01/2020 Surgery Main Operating Room William Jones INS ERT OR REPLACE Jessica Lu MD PERIPHERAL OR GASTRIC [facility] NEUROSTIMULATOR ([facility] [address]) [place] [address] [place], [place] [phone] (Wo rk) [phone] Social History Tobacco Use Types Packs/Day Years [...] Sign Reading Time Taken Comments Blood Pressure 111/52 12/01/2020 11:00 AM EDT Pulse 56 12/01/2020 8:17 AM EDT Temperature 36.4 ??C (97.5 ??F) 12/01/2020 10:45 AM EDT Respiratory Rate 16 12/01/2020 11:00 AM EDT Oxygen Saturation 95% 12/01/2020 11:00 AM EDT Inhaled Oxygen Concentration - - Weight - - Height - - Body Mass Index - - documented in this encounter Discharge Instructions Discharge InstructionsShGracia hall RN - 12/01/2020 11:00 AM EDT POST [...] usually goes away in 12-24 hours. Patient InstructionsYohana Perez MD - 12/01/2020 7:39 AM EDT Images from the original note were not included. Patient Discharge Instructions: Follow up appointments and recommendations: 12/14/2020 at 01:[address] Jones For problems or concerns related to this hospitalization call: [phone] weekdays, or [phone] weekends or nights. Call your doctor if [...] MD - 12/01/2020 8:57 AM EDT Inpatient DROP WORKER - Admission Interval Note I have reviewed the pre-procedure H&P completed by Maksim Jones and Jeanne on 11/22/20. (x) Condition unchanged since H&P originally performed. [...] for acute pain control. Preferred pharmacy: [facility] in [place] in [place]. Plan to proceed with the procedure. Opioid [...] Jones MD - 12/01/2020 10:01 AM EDT [facility] Operative Note Patient Name: Kiya Cummings : [id number] MR#: [id number] Case Date: 12/01/2020 Surgeon: Surgeon(s) and Role: [...] was removed from beneath the drapes. The medical insurance claims processor pocket was expanded and the battery attached to the lead. The set screw was tightened. The battery was placed in the medical insurance claims processor pocket that was copiously irrigated first with [...] patient instructed on use of the patient gameplay programmer. Settings for the IPG program were programmed into the patient gameplay programmer. Infection Bundle used? No Attestation: Case Date: 12/01/2020 I was present and I participated during the entire procedure (does not need to include opening and closing). William Jones MD 12/01/2020 documented in this encounter Plan of Treatment Upcoming Encounters Date Type Specialty Care Team Description 11/24/2021 Office Visit Neurology Gregg Lacy MD [place], [place] [address] (Wo rk) 04/06/2022 Appointment Radiology 04/06/2022 Office Visit Orthopaedics Wally Rouse MD [facility] ORTHOPAEDIC SURG [place], [place] [address] (Wo rk) documented as of this encounter [...] Signature POC Glucose 89 65 - 199 [facility] mg/dL [facility] Comment: Supplemental ranges: <140 mg/dL before meals <180 mg/dL all other times of the day Specimen Anatomical Collection Method Collection Time Receive d Time (Source) Location / / Volume Laterality Blood 12/01/2020 8:21 AM 8:21 EDT AM EDT William Jones MD POINT OF CARE TEST ORDERABLE S Performing Organization Address City/State/[place] [address] documented in this encounter Visit Diagnoses Not [...] (Day of Procedure), Routine BUpivacaine (pf) (Marcaine) (2.5 mg/mL) Given 12/01/2020 10:37 A M EDT 20 mLs 0.25% injection ONCE PRN, Starting on Sun12/01/20 at 1037, Until Sun12/01/20 at 1356, Intra-Operative (Intra-Procedure), Routine lactated ringers infusion New Bag 12/01/2020 [...] Routine documented in this encounter Care Teams Musculoskeletal Physiotherapist Relationship Specialty Start Date End Date Ekaterina Omer MD PCP - General General Internal Medicine 08/23/18 [address] [place] [address] documented as of this encounter
--- OUTSIDE RECORDS SUMMARY | 2021-10-13 15:51 | XMS_ITS | Encounter Summary ---
:1950 Author Organization [facility] [address] Care Team Providers Name Role Phone Ekaterina Omer MD Primary Care Provider Encounter Details Date Type Department Care Team Description 09/23/2020 Telephone [place]ed[place] [facility] [place] [address] Social History Tobacco Use Types Packs/Day Years Used Date Former Smoker Cigarettes 1 10 Quit: 05/10/18 73 Smokeless Tobacco: Never Used Alcohol Use Standard Drinks/Week Comments No 0 (1 standard drink = 0.6 oz pure alcoho l) Sex Assigned at Date Recorded Female 01/18/2021 7:28 AM EST documented as of this encounter Miscellaneous Notes Telephone Encounter - Payton Rawls MSW - 09/23/2020 9:11 AM EDT OFFICE OF CARE MANAGEMENT CCM Orders, [id number], and demographics faxed to [facility] [phone] / fax [phone] documented in this encounter Plan of Treatment Upcoming Encounters Date Type Specialty Care Team Description 11/24/2021 Office Visit Neurology Gregg Lacy MD [place], [place] [address] (Wo rk) 04/06/2022 Appointment Radiology 04/06/2022 Office Visit Orthopaedics Wally Rouse MD [facility] ORTHOPAEDIC SURG [place], [place] [address] (Wo rk) documented as of this encounter Visit Diagnoses Not on filedocumented in this encounter Care Teams Children'S Service Worker Relationship Specialty Start Date End Date Ekaterina Omer MD PCP - General General Internal Medicine 08/23/18 [address] [place] [address] documented as of this encounter
--- OUTSIDE RECORDS SUMMARY | 2021-10-13 15:52 | XMS_ITS | Encounter Summary ---
:1950 Author Organization [facility] [place] [address] Care Team Providers Name Role Phone Ekaterina Omer MD Primary Care Provider Encounter Details Date Type Department Care Team Description 09/10/2020 Telephone Orthopaedics at [facility] [place] [address] Social History Tobacco Use Types Packs/Day Years Used Date Former Smoker Cigarettes 1 10 Quit: 05/10/18 73 Smokeless Tobacco: Never Used Alcohol Use Standard Drinks/Week Comments No 0 (1 standard drink = 0.6 oz pure alcoho l) Sex Assigned at Date Recorded Female 01/18/2021 7:28 AM EST documented as of this encounter Miscellaneous Notes Telephone Encounter - Stef Sanchez - 09/10/2020 3:[address] Martinez calls to discuss pt's case. We are in receipt of her new referral. He states he can be reached on his cell at [phone]. Referral indicates intake has been completed. Forwarded to clinical team for resolution. documented in this encounter Plan of Treatment Upcoming Encounters Date Type Specialty Care Team Description 11/24/2021 Office Visit Neurology Gregg Lacy MD [place], [place] [address] (Wo rk) 04/06/2022 Appointment Radiology 04/06/2022 Office Visit Orthopaedics Wally Rouse MD [facility] ORTHOPAEDIC SURG [place], [place] [address] (Wo rk) documented as of this encounter Visit Diagnoses Not on filedocumented in this encounter Care Teams College Director Relationship Specialty Start Date End Date Ekaterina Omer MD PCP - General General Internal Medicine 08/23/18 [address] [place] [address] documented as of this encounter
--- OUTSIDE RECORDS SUMMARY | 2021-10-13 15:52 | XMS_ITS | Encounter Summary ---
:1950 Author Organization [facility] [place] [address] Care Team Providers Name Role Phone Ekaterina Omer MD Primary Care Provider Encounter Details Date Type Department Care Team Description 09/10/2020 Telephone Obstetrics and Gynecology [place] [address] [place] [address] [phone] Social History Tobacco Use Types Packs/Day Years Used Date Former Smoker Cigarettes 1 10 Quit: 05/10/18 73 Smokeless Tobacco: Never Used Alcohol Use Standard Drinks/Week Comments No 0 (1 standard drink = 0.6 oz pure alcoho l) Sex Assigned at Date Recorded Female 01/18/2021 7:28 AM EST documented as of this encounter Miscellaneous Notes Telephone Encounter - Saida Mistry APRN - 09/10/2020 2:14 PM EDT Called to tell pt about the Sruavia-Mfdirpk-Exfggnb plan--and her daughter Sendy told me that Kiya fell going up stairs and is hospitalized locally with a fractured elbow which is likely to requiresurgery. Right now she is not sure about canceling/postponing the Interstim procedure. We agreed that I will call Sendy again (@ pt's home number) on 09/14 to see whether they have decided. I have also called Lashonda at Dr. Omer's office to let her know, and I'll [place] back withher once I've spoken to Sendy again. documented in this encounter Plan of Treatment Upcoming Encounters Date Type Specialty Care Team Description 11/24/2021 Office Visit Neurology Gregg Lacy MD [place], [place] [address] (Wo rk) 04/06/2022 Appointment Radiology 04/06/2022 Office Visit Orthopaedics Wally Rouse MD [facility] ORTHOPAEDIC SURG [place], [place] [address] (Wo rk) documented as of this encounter Visit Diagnoses Not on filedocumented in this encounter Care Teams Compensation/Benefits Specialist Relationship Specialty Start Date End Date Ekaterina Omer MD PCP - General General Internal Medicine 08/23/18 [address] [place] [address] documented as of this encounter
--- OUTSIDE RECORDS SUMMARY | 2021-10-13 15:52 | XMS_ITS | Encounter Summary ---
:1950 Author Organization [facility] [place] [address] Care Team Providers Name Role Phone None Primary Care Provider Unavailable Encounter Details Date Type Department Care Team Description 08/19/2018 Orders Only Neurology at [facility] [place] [address] Social History Tobacco Use Types Packs/Day [...] 11/24/2021 Office Visit Neurology Gregg Lacy MD [place], [place] [address] (Wo rk) 04/06/2022 Appointment Radiology 04/06/2022 Office Visit Orthopaedics Wally Rouse MD [facility] ORTHOPAEDIC SURG [place], [place] [address] (Wo rk) documented as of this encounter Visit Diagnoses Not on filedocumented in this encounter Care Teams Managing Principal Relationship Specialty Start Date End Date None PCP - General 06/25/18 08/22/18 None documented as of this encounter
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
--- OUTSIDE RECORDS SUMMARY | 2021-10-13 15:52 | XMS_ITS | Encounter Summary ---
:1950 Author Organization [facility] [place] [address] Care Team Providers Name Role Phone Ekaterina Omer MD Primary Care Provider Reason for Referral Home Health Care (Routine) - Specialty Diagnoses / Procedures Referred By Contact Refer red To Contact Unknown Specialty Diagnoses Closed bicondylar fracture of distal end of left humerus, initial encounter Nimco Ha MD [facility] [place] [address] Referral ID Status Reason Start Expiration Visits Visits Date Date Requested Authorized [id number] Continuity of 09/15/2020 03/14/2021 1 1 Care Reason for Visit Reason Comments Establish Care severely comminuted distal h umerus and left radial head fx-DOI-09/08/20- PER JULIO C Consultation (Urgent) - Closed Specialty Diagnoses / Procedures Referred By Contact Refer red To Contact Orthopaedics Diagnoses severely comminuted distal humerus and left radial head fx-DOI-09/08/20 Daly Montano MD [facility] Orthopaedics [address] OR [address] [place], [place] [address] [place] [phone] Fax: Referral ID Status Reason Start Date Expiration Date Visits V isits Requested Authorized [id number] Closed Consult, Test 09/09/2020 09/09/2021 [facility] PCP Updated and/or Approved Encounter Details Date Type Department Care Team Description 09/15/2020 Office Visit Orthopaedics at [facility] Nimco Ha, Closed bicondylar [facility] fracture of distal [facility] end of left humerus, [place] [address] CENTER initial encounter [phone] ORTHOPAEDIC SURGERY [place], [place] [address] Social History Tobacco Use Types Packs/Day Years Used Date Former Smoker Cigarettes 1 10 Quit: 05/10/18 73 Smokeless Tobacco: Never Used Alcohol Use Standard Drinks/Week Comments No 0 (1 standard drink = 0.6 oz pure alcoho l) Sex Assigned at Date Recorded Female 01/18/2021 7:28 AM EST documented as of this encounter Progress Notes Nimco Ha MD - 09/15/2020 10:00 AM EDT Subjective: Patient ID: Kiya Cummings is a 70 y.o. female. Chief Complaint Patient presents with ??? Establish Care severely comminuted distal humerus and left radial head fx-DOI-09/08/20- PER JULIO C Patient Active Problem List Diagnosis Code ??? Rectus diastasis M62.08 ??? S/P panniculectomy Z98.890 ??? Urinary and fecal incontinence R32, R15.9 ??? Disorder of muscle, ligament, and fascia M62.9 ??? Hypothyroidism E03.9 ??? Gastroesophageal reflux K21.9 ??? Pulmonary embolism I26.99 ??? Depression F32.9 ??? LEONARD treated with BiPAP G47.33 ??? OA (osteoarthritis) M19.90 ??? Diverticulosis of large intestine without perforation or abscess without bleeding K57.30 ??? Irritable bowel syndrome with both constipation and diarrhea K58.2 ??? Morbid obesity with BMI of 40.0-44.9, adult E66.01, Z68.41 ??? Mild cognitive impairment G31.84 ??? Phlebitis after infusion T80.1XXA, I80.9 Allergies Allergen Reactions ??? Sulfa (Sulfonamide Antibiotics) Hives ??? Ciprofloxacin ??? Macrodantin [Nitrofurantoin Macrocrystal] ??? Pramipexole No current facility-administered medications on file prior to visit. Current Outpatient Medications on File Prior to Visit Medication Sig Dispense Refill ??? acetaminophen (Tylenol) 500 mg Tablet Take 1,000 mg by mouth every 6 hours as needed for Pain. ??? amLODIPine (Norvasc) 2.5 mg Tablet amlodipine 2.5 mg tablet ??? atorvastatin (Lipitor) 20 mg Tablet atorvastatin 20 mg tablet ??? buPROPion XL (Wellbutrin XL) 150 mg Tablet Extended Release 24 hr Take 150 mg by mouth every morning. Taking in addition to the 300mg for a total of 450mg daily. ??? omeprazole (PriLOSEC) 40 mg Capsule, Delayed Release(E.C.) Take 40 mg by mouth daily. ??? UNABLE TO FIND Take 10 mg by mouth. Med Name: Cetirizine/Zyrtec ??? escitalopram (LEXAPRO) 10 mg Tablet take 1 tablet by mouth once daily 0 ??? buPROPion (WELLBUTRIN XL) 300 mg Tablet Extended Release 24 hr Take 1 tablet by mouth every morning. 30 tablet 3 ??? levothyroxine (SYNTHROID) 100 mcg Tablet Take 100 mcg by mouth daily. ??? multivitamin (THERAGRAN) Tablet Take 1 tablet by mouth daily. ??? magnesium 250 mg Tablet Take 500 mg by mouth daily. ??? cholecalciferol, Vitamin D3, (CHOLECALCIFEROL, VITAMIN D3,) 2,000 unit Capsule Take 1 capsule bymouth daily. ??? ascorbic acid, vitamin C, (VITAMIN C) 500 mg Tablet Take 500 mg by mouth daily. ??? ELIQUIS 2.5 mg Tablet Take 2.5 mg by mouth 2 times daily. 1 Social History Socioeconomic History ??? Marital status: [...] since quittin.4 ??? Smokeless tobacco: Never Used Vaping Use ??? Vaping Use: Never used Substance and Sexual Activity ??? Alcohol use: No ??? Drug use: No ??? Sexual activity: Not on file Comment: deferred Other Topics Concern ??? Exercise: Patient reported No ??? Abuse or Threat: Physical, Sexual, Verbal No Social History Narrative Ms. Cummings lives in [place], [place] with her . 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 She has prior history of radon exposure but this is since been mitigated in her home. She has not had significant occupational exposures to dusts or fumes although there is an incidental exposures or work. She has 2 adult children. She and her frequently winter in [place]. She enjoys watching TV and biking. Social [...] Week: ??? Minutes of Exercise per Session: [facility] FollowUp 07/02/2018 Health in general Good Quality of life Good Physical health Good Mental health Fair Satisfaction with social activities Good Ability to carry out physical activities Mostly Rate of pain 3 Rate of fatigue Severe Ability to carry out social activities Good Bothered by emotional problems Sometimes PROMIS PHYSICAL HEALTH SCORE 42.3 PROMIS MENTAL HEALTH SCORE 41.1 HPI This is a 70 y.o. female who sustained a fall resulting in immediate elbow pain. She was initially seen at an OSH where she was found to have a distal humerus fracture. She was placed into a splint andinstructed to follow-up at . NO head strike or LOC. No pain in any other anatomic location. She does have a history of PE and is on eliquis. Of note, she recently had a pre-operative medicine evaluation with very specific instructions around her eliquis for an elective surgical procedure. Review of Systems 10 point ROS was reviewed and was negative except per HPI Objective: Physical Exam NAD, A&Ox3 LUE: SKin is clean and intact Fires EPL/FPL/EDP/FDP/ROBLES SILT med/rad/ulnar Palpable radial pulse Imaging: I reviewed all imaging. CT and radiographs demonstrate displaced capitellar shear-type fracture with extension across the joint into the trochlean Assessment and Plan: This is a 70 y.o. female with a capitellar shear-type distal humerus fracture which is quite comminuted. We had an extensive discussion about this injury including treatment options. We discussed threepotential treatment options which include (1) open reduction internal fixation versus excision of non- recontructable fragments, (2) nonoperative treatment, (3) total elbow arthroplasty. We did discuss that total elbow arthrplasty does remain an option farther out from acute management of this. Given the limited functionality associated arthroplasty, the patient and her daughter did agree that they would defer that option at this time and consider it if acute management fails. Given that, we discussed surgical versus nonsurgical fixation at length. Based on this, the patient and her daughter would prefer surgery, understanding that this is a highly comminuted fracture and that the displaced fracture fragments may not all be reconstructable. We discussed other surgical risks that include but are not limited to infection, bleeding, damage to surrounding tissues, need for further surgery, malunion, nonunion, posttraumatric arthritis, elbow stiffness, chronic elbow pain, blood clots (particularly given her history), aneshtesia- related complications. She demonstrated good understanding and does wishto proceed. Given her recent preoperative medical evaluation, I did agree that we can plan to follow the recommendations around the previously scheduled elective procedure. Lazara Ha MD Department of ORthopaedics documented in this encounter Plan of Treatment Upcoming Encounters Date Type Specialty Care Team Description 11/24/2021 Office Visit Neurology Gregg Lacy MD [place] [address] (Wo rk) 04/06/2022 Appointment Radiology 04/06/2022 Office Visit Orthopaedics Wally Rouse MD [facility] ORTHOPAEDIC SURG [place], [place] [address] (Wo rk) Scheduled Referrals Name Type Priority Associated Diagnoses Order S chedule Referral to Home Outpatient Referral Routine Closed bicondylar Ordered: [facility] fracture of distal 2020 Use end of left humerus, initial encounter documented as of this encounter Visit Diagnoses Diagnosis Closed bicondylar fracture of distal end of left humerus, initial encounter documented in this encounter Care Teams Motorsports Technician Relationship Specialty Start Date End Date Ekaterina Omer MD PCP - General General Internal Medicine 08/23/[address] [address] documented as of this encounter
--- OUTSIDE RECORDS SUMMARY | 2021-10-13 15:52 | XMS_ITS | Encounter Summary ---
:1950 Author Organization [place] [address] Care Team Providers Name Role Phone Ekaterina Omer MD Primary Care Provider Reason for Visit Reason Comments Medication Refill Encounter Details Date Type Department Care Team Description 11/28/2018 Refill Weight and Wellness at [facility] [place] mittal MD [facility] [address] [place] [address] [place] [address] [phone] Social History Tobacco Use Types Packs/Day Years [...] 11/24/2021 Office Visit Neurology Gregg Lacy MD [place], [place] [address] (Wo rk) 04/06/2022 Appointment Radiology 04/06/2022 Office Visit Orthopaedics Wally Rouse MD [facility] ORTHOPAEDIC SURG [place], [place] [address] (Wo rk) documented as of this encounter Visit Diagnoses Not on filedocumented in this encounter Care Teams Residential Care Officer Relationship Specialty Start Date End Date Ekaterina Omer MD PCP - General General Internal Medicine 08/23/18 [address] [place] [address] documented as of this encounter
--- OUTSIDE RECORDS SUMMARY | 2021-10-13 15:52 | XMS_ITS | Encounter Summary ---
:1950 Author Organization [facility] [place] [address] Care Team Providers Name Role Phone Ekaterina Omer MD Primary Care Provider Reason for Visit Reason Onset Date Comments TeleHealth 07/01/2019 Encounter Details Date Type Department Care Team Description 07/01/2019 Telephone Neurology at [facility] Hailey [place], [place] [employer] [address] [place] [address] [phone] (Wo rk) Social History Tobacco Use Types Packs/Day Years Used Date Former Smoker Cigarettes 1 10 Quit: 05/10/18 73 Smokeless Tobacco: Never Used Alcohol Use Standard Drinks/Week Comments No 0 (1 standard drink = 0.6 oz pure alcoho l) Sex Assigned at Date Recorded Female 01/18/2021 7:28 AM EST documented as of this encounter Miscellaneous Notes Telephone Encounter - An Zuniga RN - 07/01/2019 2:07 PM EDT Unable to reach this patient by phone to review medications and allergies prior to upcoming tele- appointment scheduled with Neurology provider. No message left. documented in this encounter Plan of Treatment Upcoming Encounters Date Type Specialty Care Team Description 11/24/2021 Office Visit Neurology Gregg Lacy MD [place], [place] [address] (Wo rk) 04/06/2022 Appointment Radiology 04/06/2022 Office Visit Orthopaedics Wally Rouse MD [facility] ORTHOPAEDIC SURG [place], [place] [address] (Wo rk) documented as of this encounter Visit Diagnoses Not on filedocumented in this encounter Care Teams Scenery Builder Relationship Specialty Start Date End Date Ekaterina Omer MD PCP - General General Internal Medicine 08/23/18 [address] [place] [address] documented as of this encounter
--- OUTSIDE RECORDS SUMMARY | 2021-10-13 15:52 | XMS_ITS | Encounter Summary ---
:1950 Author Organization [facility] [place] [address] Care Team Providers Name Role Phone Ekaterina Omer MD Primary Care Provider Reason for Visit Reason Onset Date Comments Medication Refill 07/22/2018 Encounter Details Date Type Department Care Team Description 07/22/2018 Refill Weight and Wellness at [facility] [place] mittal MD [facility] [address] [place] [address] [place] [address] [phone] Social History Tobacco Use Types Packs/Day Years [...] 11/24/2021 Office Visit Neurology Gregg Lacy MD [place], [place] [address] (Wo rk) 04/06/2022 Appointment Radiology 04/06/2022 Office Visit Orthopaedics Wally Rouse MD [facility] ORTHOPAEDIC SURG [place], [place] [address] (Wo rk) documented as of this encounter Visit Diagnoses Not on filedocumented in this encounter Care Teams Turkey Picker Relationship Specialty Start Date End Date Ekaterina Omer MD PCP - General General Internal Medicine 08/23/18 [address] [place] [address] documented as of this encounter
--- OUTSIDE RECORDS SUMMARY | 2021-10-13 15:52 | XMS_ITS | Encounter Summary ---
:1950 Author Organization [facility] [place] [address] Care Team Providers Name Role Phone Ekaterina Omer MD Primary Care Provider Reason for Visit Reason Comments Medication Refill Encounter Details Date Type Department Care Team Description 01/08/2019 Refill Obstetrics and Saida Mistyr APRN Lichen simplex chronicus [place] [address] [place] [address] [phone] Social History Tobacco Use Types Packs/Day Years [...] 11/24/2021 Office Visit Neurology Gregg Lacy MD [place], [place] [address] (Wo rk) 04/06/2022 Appointment Radiology 04/06/2022 Office Visit Orthopaedics Wally Rouse MD [facility] ORTHOPAEDIC SURG [place], [place] [address] (Wo rk) documented as of this encounter Visit Diagnoses Diagnosis Lichen simplex chronicus Lichenification and lichen simplex chron icus documented in this encounter Care Teams Hydraulic Jack Adjuster Relationship Specialty Start Date End Date Ekaterina Omer MD PCP - General General Internal Medicine 08/23/18 [address] [place] [address] documented as of this encounter
--- OUTSIDE RECORDS SUMMARY | 2021-10-13 15:52 | XMS_ITS | Encounter Summary ---
:1950 Author Organization [facility] [place] [address] Care Team Providers Name Role Phone Ekaterina Omer MD Primary Care Provider Encounter Details Date Type Department Care Team Description 09/09/2020 Ancillary Procedure Radiology Library at Marichuy Omer [facility] [address] [place], [place] [address] [place] [address] [phone] Social History Tobacco Use Types Packs/Day Years [...] 11/24/2021 Office Visit Neurology Gregg Lacy MD [place], [place] [address] (Wo rk) 04/06/2022 Appointment Radiology 04/06/2022 Office Visit Orthopaedics Wally Rouse MD [facility] ORTHOPAEDIC SURG [place], [place] [address] (Wo rk) documented as of this encounter Procedures Procedure Name Priority Date/Time Associated Diagnosis Comme nts FILM LIBRARY Routine 09/09/2020 12:00 AM Results for this STORAGE ONLY CT EDT procedure ar e in UPPER EXTREMITY the results section. documented in this encounter Results Film Library- Storage Only CT Upper Extremity (09/09/2020 12:00 AM EDT) Specimen (Source) Anatomical Location Collection Method / Collectio n Time Received Time / Laterality Volume Narrative RAD - 09/10/2020 1:57 PM EDT This exam is auto-finalizing. It's purpo se is for storage only. Ekaterina Omer MD IMG FILM LIBRARY ORDERABLES Performing Organization Address City/State/ZIP Code Phon e Number [place], [place] documented in this encounter Visit Diagnoses Not on filedocumented in this encounter Care Teams Wildlife Technician Relationship Specialty Start Date End Date Ekaterina Omer MD PCP - General General Internal Medicine 08/23/18 [address] [place] [address] documented as of this encounter
--- OUTSIDE RECORDS SUMMARY | 2021-10-13 15:52 | XMS_ITS | Encounter Summary ---
:1950 Author Organization [facility] [address] Care Team Providers Name Role Phone Ekaterina Omer MD Primary Care Provider Reason for Visit Reason Onset Date Comments Other 07/11/2018 Encounter Details Date Type Department Care Team Description 07/11/2018 Telephone Neurology at [facility] Debbie Black, Other [facility] [place] [address] [facility] [phone] [place], [place] [address] (Wo rk) Social History Tobacco Use Types Packs/Day Years Used Date Former Smoker Cigarettes 1 10 Quit: 05/10/18 73 Smokeless Tobacco: Never Used Alcohol Use Standard Drinks/Week Comments No 0 (1 standard drink = 0.6 oz pure alcoho l) Sex Assigned at Date Recorded Female 01/18/2021 7:28 AM EST documented as of this encounter Miscellaneous Notes Telephone Encounter - Dorina Boone - 07/12/2018 4:02 PM EDT Clinical Supervisory Clerk Message Caller: Alice If not Pt / Relation to pt: daughter in law Call back Number: [phone] Best time to reach caller: Anytime Reason for call: MRI Results Message/information for the nurse: Patient's daughter in law called to speak with a nurse about Kiya's MRI results. States her father in law spoke with a nurse regarding the results, and Kiya is needing to hear the results so she can explain them to her in laws. She states she's on the list for personal reps. Disposition of Call ?? [place] Message Reason red arrow Message: hoping to discuss results before the weekend so her in-laws don't have time to google the results before she has a chance to better explain. Telephone Encounter - Gracia Sanchez - 07/12/2018 3:21 PM EDT Clinical Supervisory Clerk Message Caller: Alice If not Pt / Relation to pt: Daughter in law Call back Number: [phone] Best time to reach caller: Anytime Reason for call: MRI results Message/information for the nurse: Alice states that she was able to access patient's MRI results through her [employer] account and she would like to discuss these results with a nurse before going into the weekend, as the patient is very anxious and Alice does not want her to research the results before speaking with someone. Disposition of Call ?? Routine Message sent to the Nurse Telephone Encounter - Lissette Berry - 07/11/2018 4:45 PM EDT Clinical [place] Message Caller: Alice If not Pt / Relation to pt: Daughter Call back number: [phone] Best time to reach caller: Anytime Reason for call: Lab/Test Results Results being requested: MRI Where were tab/test done: [facility] When were lab/test done: 07/05/18 Additional information or questions for the nurse: States pt is growing anxious about results but would like to make sure that someone is present with the patient when results are given to her so would like to discuss a time that they could be read when she is not alone. Disposition of Call: routine message to nurse documented in this encounter Plan of Treatment Upcoming Encounters Date Type Specialty Care Team Description 11/24/2021 Office Visit Neurology Gregg Lacy MD [place], [place] [address] (Wo rk) 04/06/2022 Appointment Radiology 04/06/2022 Office Visit Orthopaedics Wally Rouse MD [facility] ORTHOPAEDIC SURG [place], [place] [address] (Wo rk) documented as of this encounter Visit Diagnoses Not on filedocumented in this encounter Care Teams Private Detective Relationship Specialty Start Date End Date Ekaterina Omer MD PCP - General General Internal Medicine 08/23/18 [address] [place] [address] documented as of this encounter
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
--- OUTSIDE RECORDS SUMMARY | 2021-10-13 15:52 | XMS_ITS | Encounter Summary ---
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 (i.e., elaborate rehearsal). ??? She may benefit from having tasks or information broken down into smaller steps or chunks. This will help limit the demands placed on her working memory at any given time. This could be particularly useful when she is working through novel or complex problems. Specifically, she could practice the following steps: o Break complex problems into simpler component parts o Organize these sequentially o Tackle them one at a time o Take occasional breaks to review progress towards goals o Assess level of emotional distress to ensure that this is not interfering o Adjust strategies accordingly ??? In order to further reduce demands on her working memory, she may benefit from using strategies such as: o Keep living space free of clutter to minimize environmental distractions o Avoid external distractions (TV, music, background noise/conversations, etc.) when needing to concentrate o Write down complicated information and use checklists of work tasks, rather than holding everything in mind o Attempt and complete one task at a time, then move on to the next step/task o Take frequent short breaks during the completion of steps/tasks to rest attention skill and avoid fatigue, particularly when focus begins to wane o Reduce the amount of information to be considered at one time ??? Often, people with difficulties organizing their materials have problems knowing where to begin or how to structure the process. It can be helpful to approach an organizational task by outlining a goal and a plan of approach in advance, and to periodically assess progress and make adjustments as necessary. ??? Neuropsychological re-evaluation in 12-18 months is suggested to assess for change and further inform differential diagnosis and treatment planning. Thank you for referring Ms. Cummings for neuropsychological evaluation. If you would like additional information, please do not hesitate to contact us at . Jazmyn Sifuentes, Ph.D. Lenny Amos, Ph.D. ABPP Postdoctoral Fellow in Neuropsychology Board Certified in Clinical Neuropsychology Nursing Consultantroll over press operator A postdoctoral fellow in neuropsychology was involved in test administration, interpretation, and report development. The interpretation and integration of pertinent clinical information found in this report was directed and verified by the supervising neuropsychologist/licensed clinical psychologist. 94671: 1 hour (1 units) 09158: 1 hour 34 minutes (2 units) 05390: 30 minutes (1 units) 78488: 2 hours 34 minutes (5 units) documented in this encounter Plan of Treatment Upcoming Encounters Date Type Specialty Care Team Description 11/24/2021 Office Visit Neurology Gregg Lacy MD [place], [place] [address] (Wo rk) 04/06/2022 Appointment Radiology 04/06/2022 Office Visit Orthopaedics Wally Rouse MD [facility] ORTHOPAEDIC SURG [place], [place] [address] (Wo rk) documented as of this encounter Visit Diagnoses Diagnosis Depression, unspecified depression type Sleep difficulties Sleep disturbance, unspecified Subjective cognitive impairment documented in this encounter Care Teams Bond Runner Relationship Specialty Start Date End Date Ekaterina Omer MD PCP - General General Internal Medicine 08/23/18 [address] [place] [address] documented as of this encounter
--- OUTSIDE RECORDS SUMMARY | 2021-10-13 15:52 | XMS_ITS | Encounter Summary ---
:1950 Author Organization [place] [address] Care Team Providers Name Role Phone Ekaterina Omer MD Primary Care Provider Encounter Details Date Type Department Care Team Description 09/09/2020 Ancillary Procedure Radiology Library at Marichuy O[facility] [address] [place], [place] [address] [place] [id number] [phone] Social History Tobacco Use Types Packs/Day Years [...] 11/24/2021 Office Visit Neurology Gregg Lacy MD [place], [place] [address] (Wo rk) 04/06/2022 Appointment Radiology 04/06/2022 Office Visit Orthopaedics Wally Rouse MD [facility] ORTHOPAEDIC SURG [place], [place] [address] (Wo rk) documented as of this encounter Procedures Procedure Name Priority Date/Time Associated Diagnosis Comme nts FILM LIBRARY Routine 09/09/2020 12:05 AM Results for this STORAGE ONLY DX EDT procedure ar e in ELBOW the results section. documented in this encounter Results Film Library- Storage Only DX [place] (09/09/2020 12:05 AM EDT) Specimen (Source) Anatomical Location Collection Method / Collectio n Time Received Time / Laterality Volume Narrative RAD - 09/10/2020 1:59 PM EDT This exam is auto-finalizing. It's purpo se is for storage only. Ekaterina Omer [place] [facility]RARY ORDERABLES Performing Organization Address City/State/ZIP Code Phon e Number [place], [place] documented in this encounter Visit Diagnoses Not on filedocumented in this encounter Care Teams Green Marketing Specialist Relationship Specialty Start Date End Date Ekaterina Omer MD PCP - General General Internal Medicine 08/23/18 [address] [place] [address] documented as of this encounter
--- OUTSIDE RECORDS SUMMARY | 2021-10-13 15:52 | XMS_ITS | Encounter Summary ---
:1950 Author Organization [facility] [place] [address] Care Team Providers Name Role Phone None Primary Care Provider Unavailable Encounter Details Date Type Department Care Team Description 06/25/2018 Orders Only Neurology at [facility] [place] [phone] Social History Tobacco Use Types Packs/Day [...] 11/24/2021 Office Visit Neurology Gregg Lacy MD [place], [place] [address] (Wo rk) 04/06/2022 Appointment Radiology 04/06/2022 Office Visit Orthopaedics Wally Rouse MD [facility] ORTHOPAEDIC SURG [place], [place] [address] (Wo rk) documented as of this encounter Visit Diagnoses Not on filedocumented in this encounter Care Teams Crayon Grader Relationship Specialty Start Date End Date None PCP - General 06/25/18 08/22/18 None documented as of this encounter
--- OUTSIDE RECORDS SUMMARY | 2021-10-13 15:52 | XMS_ITS | Encounter Summary ---
:1950 Author Organization [facility] [place] [address] Care Team Providers Name Role Phone None Primary Care Provider Unavailable Reason for Visit Reason Comments Establish Care Prior repair of uterine prol apse, cystocele. Now with urge urinary incontinence. Consultation (Routine) - Closed Specialty Diagnoses / Procedures Referred By Contact Refer red To Contact Obstetrics and Diagnoses Full incontinence of feces Re Blum MD [facility] [place] Special Education Preschool Teacher 5l Gynecology [facility] enter [address] [place] [phone] Fax: Referral ID Status Reason Start Date Expiration Date Visits V isits Requested Authorized [id number] Closed Consult, 07/02/2018 07/02/2019 1 1 Test & Treat Encounter Details Date Type Department Care Team Description 08/19/2018 Office Visit Obstetrics and Fidelia, Saida Jordan, Cystocele, midline; Gynecology at [facility] [place] SUPERINTENDENT QUARRY Mixed incontinence; [facility] Edie l incontinence of feces; Tarik Whitman Pelvic muscle wasting; [place], [place] [address] Lichen simplex chronicus [id number] Social History Tobacco Use Types Packs/Day Years [...] Sign Reading Time Taken Comments Blood Pressure 139/83 08/19/2018 1:59 PM EDT Pulse 70 08/19/2018 1:59 PM EDT Temperature 36.7 ??C (98 ??F) 08/19/2018 1:59 PM EDT Respiratory Rate 16 08/19/2018 1:59 PM EDT Oxygen Saturation 100% 08/19/2018 1:59 PM EDT Inhaled Oxygen Concentration - - Weight 105.4 kg (232 lb 6.4 oz) 08/19/2018 1:59 PM EDT Height 160 cm (5' 3) 08/19/2018 1:59 PM EDT Body Mass Index 41.17 08/19/2018 1:59 PM EDT documented in this encounter Progress Notes Saida Mistry, SUPERINTENDENT QUARRY - 08/19/2018 2:00 PM EDT Female Pelvic Medicine and Reconstructive Surgery @ [facility] Patient Name: Kiya Cummings Patient Primary Care Provider: None Patient Active Problem List Diagnosis Code ??? Rectus diastasis M62.08 ??? S/P panniculectomy Z98.890 ??? Urinary and fecal incontinence R32, R15.9 ??? Hypothyroidism E03.9 ??? Gastroesophageal reflux K21.9 ??? Pulmonary embolism I26.99 ??? Depression F32.9 ??? LEONARD treated with BiPAP G47.33 ??? OA (osteoarthritis) M19.90 ??? Diverticulosis of large intestine without perforation or abscess without bleeding K57.30 ??? Irritable bowel syndrome with both constipation and diarrhea K58.2 ??? Morbid obesity with BMI of 40.0-44.9, adult E66.01, Z68.41 Chief Complaint: Fecal incontinence and urinary urge incontinence History of Present Illness: Ms. Cummings is a 68 y.o. old para 2 woman, seen at the kind request of Dr. Re Blum, who recently met her for fecal incontinence, and referred her for pelvic floor PT. The patient also has urinary urge incontinence, and if conservative measures do not help her control ad equately, Dr. Blum felt she would be a candidate for sacral neurostimulation. Kiya is seen by the SUPERINTENDENT QUARRY in order to expedite her evaluation in our division. She presents for evaluation and assessment of dual incontinence of 20 years or more duration. Goals for this visit 1. Urogynecologic evaluation of symptoms Urinary tract history Patient has history of recurrent urinary tract infection. She had more than 3 in the past year and is using low dose vaginal estrogen. Patient denies history of pyelonephritis. Patient denies history of urinary tract abnormality. Patient denies history of nephrolithiasis. Patient denies history of hematuria. Bladder irritants: Fluid intake: 2 qts water; some V8 Caffeine intake: Coffee in am, 10 oz; no soda, no tea Cigarette smoking (packs, time, if quit when): Not in 46 yrs Alcohol: no Bladder Function Urinary incontinence: yes ICIQ-UI Short Form How often do you leak urine? Never 0 About once a week or less often 1 2-3 times a week 2 About once a day 3 4 Several times a day 4 All the time 5 How much urine do you usually leak? None 0 A small amount 1 A moderate amount 2 3 A large amount 3 Overall, how much does leaking interfere with your everyday life? 8 (0 not at all, 10 a great deal) ICIQ Sum the scores: 15 When does urine leak? (Check all that apply) Never - Urine does not leak y Leaks before you can get to the toilet y Leaks when you cough or sneeze no Leaks when you are asleep no Leaks when you are physically active/exercising occ Leaks when you have finished urinating or are dressed Leaks on arrival home but not running water Leaks all the time Pad use (per day): 4 Pad type: Incontinence liner Daytime voids: q hour while awake Nocturia: 3 Previous urinary incontinence treatment (Medical/Behavioral/Surgical): PT in past, Kegels Storage symptoms x Urinary frequency x Nocturia x Stress urinary incontinence - leakage with exertion, cough/sneeze x Urge urinary incontinence - leakage preceded immediately by urge to void Noctural enuresis - NOT IN ASSOCIATION WITH URGE Continuous urinary leakage Other: (e,g. giggle, intercourse-related) Bladder sensation Normal - aware of filling and increased sensation up to desire to void x Increased - feels an early and persistent need to void Reduced - aware of filling but NOT definite desire to void Absent - NO sensation of filling or need to void Non-specific - No specific bladder symptoms during filling or void Voiding symptoms None Slow stream Spraying x Intermittent stream - stop/start on > 1 occasion during void x Straining - muscular effort to initiate, maintain OR improve stream Terminal dribble - prolonged final part of void Feeling of incomplete emptying Pelvic Organ Prolapse (POP) Any personally see or feel a vaginal bulge? no What precipitates prolapse or symptoms of prolapse? na Previous treatment for POP (physical therapy, pessary, surgery)?: [place]stocele & [place] [facility] Bowel Function Fecal incontinence (yes/no): yes Number of fecal incontinent episodes (day/week): Not every day; consistency changes from hard ballsto liquid; she tried the Metamucil x 2 wks but stopped as it did not help Number of bowel movements (day/week): Usually qd Defecatory Dysfunction: Symptom Presence Symptom Presence NONE Incomplete Emptying Straining x Infrequent stools (<3 week) Splinting Abdominal discomfort Loose stools x Defecatory urgency Hard stools x Other Sexual Function Active?: yes Pain with intercourse?: Yes with deep penetration sometimes Desire to retain sexual function? yes Past Medical History: Diagnosis Date ??? Allergy [...] 1994 with rectocele repair ??? HYSTERECTOMY 1981 abdominal ??? PRO COLONOSCOPY, DIAGNOSTIC N/A 12/24/2017 COLONOSCOPY, DIAGNOSTIC performed by Caleb Tineo MD at [facility] ENDOSCOPY ??? PRO EXCISE EXCESS SKIN TISSUE, ABDOMEN N/A 03/06/2014 ABDOMINOPLASTY performed by Marcos Vance MD at [facility] MAIN OR ??? PRO UNLISTED PROCEDURE, MUSCULOSKELETAL SYSTEM, GENERAL both shouloders rotater cuff ??? VASCULAR SURGERY 1989 varicose veins both legs OB History Para Term AB Living 2 2 0 0 0 2 SAB TAB Ectopic Multiple Live Births 0 0 0 0 2 # Outcome Date GA Lbr Brandon/2nd Weight Sex Delivery Anes PTL Lv 2 Para 1 Para Obstetric Comments Largest 8 lb 10 oz Outpatient Medications Marked as Taking for the 08/19/18 encounter (Office Visit) with Saida Mistry APRN Medication Sig Dispense Refill ??? buPROPion (WELLBUTRIN XL) 300 mg Tablet Extended Release 24 hr Take 1 tablet by mouth every morning. 30 tablet 3 ??? levothyroxine (SYNTHROID) 100 mcg Tablet Take 100 mcg by mouth daily. ??? multivitamin (THERAGRAN) Tablet Take 1 tablet by mouth daily. ??? D-MANNOSE ORAL Take 1,500 mg by mouth daily. ??? vit C,L-Xm-eizws-lutein-zeaxan (PRESERVISION AREDS-2) [id number] kk-gfxv-ws-mg Capsule Take 1 capsule by mouth daily. ??? magnesium 250 mg Tablet Take 500 mg by mouth daily. ??? metFORMIN (GLUCOPHAGE) 500 mg Tablet Take 2 tablets by mouth 2 times daily (with meals). 120 tablet 3 ??? venlafaxine (EFFEXOR-XR) 150 mg Capsule, Sust. Release 24 hr Take 150 mg by mouth daily. 0 ??? venlafaxine (EFFEXOR-XR) 75 mg Capsule, Sust. Release 24 hr Take 75 mg by mouth daily. 0 ??? cholecalciferol, Vitamin D3, (CHOLECALCIFEROL, VITAMIN D3,) 2,000 unit Capsule Take 1 capsule bymouth daily. ??? ascorbic acid, vitamin C, (VITAMIN C) 500 mg Tablet Take 500 mg by mouth daily. ??? ELIQUIS 2.5 mg Tablet Take 2.5 mg by mouth 2 times daily. 1 Allergies Allergen Reactions ??? Sulfa (Sulfonamide Antibiotics) Hives ??? Ciprofloxacin ??? Macrodantin [Nitrofurantoin Macrocrystal] ??? Pramipexole Social History Socioeconomic History ??? Marital status: Spouse name: Not on file ??? Number of children: Not on file ??? Years of education: Not on file ??? Highest education level: Not on file Occupational History ??? Not on file Social Needs ??? Financial resource strain: Not on file ??? Food insecurity: Worry: Not on file Inability: Not on file ??? Transportation needs: Medical: Not on file Non-medical: Not on file Tobacco Use ??? Smoking status: Former Smoker Packs/day: 1.00 Years: 10.00 Pack years: 10.00 Types: Cigarettes Last attempt to quit: 05/10/1972 Years since quittin.3 ??? Smokeless tobacco: Never Used Substance and Sexual Activity ??? Alcohol use: No ??? Drug use: No ??? Sexual activity: Not on file Comment: deferred Lifestyle ??? Physical activity: Days per week: Not on file Minutes per session: Not on file ??? Stress: Not on file Relationships ??? Social connections: Talks on phone: Not on file Gets together: Not on file Attends roman catholic service: Not on file Active member of club or organization: Not on file Attends meetings of clubs or organizations: Not on file Relationship status: Not on file ??? Intimate partner violence: Fear of current or ex partner: Not on file Emotionally abused: Not on file Physically abused: Not on file Forced sexual activity: Not on file Other Topics Concern ??? Exercise: Patient reported No ??? Abuse or Threat: Physical, Sexual, Verbal No Social History Narrative Ms. Cummings lives in [place], [place] with her . 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 She has prior history of radon exposure but this is since been mitigated in her home. She has not had significant occupational exposures to dusts or fumes although there is an incidental exposures or work. She has 2 adult children. She and her frequently winter in [place]. She enjoys watching TV and biking. Family History Problem Relation Age of Onset ??? Alcohol Abuse Sister ??? Thrombophilia Mother ??? Coronary Artery Disease Mother ??? High Blood Pressure Mother ??? Cervical Cancer Mother ??? Parkinsonism Father ??? Stomach Cancer Brother ??? Obesity Brother ??? Diabetes Brother ??? Myocardial Infarction Brother ??? Obesity Sister ??? Gallbladder Disease Son Gallstones s/p cholecystectomy Family history: denies history of gynecologic cancer ROS: Review of all other systems negative except for those mentioned above or indicated below: System Symptom Presence Constitutional Weight Loss Effort loss of 50 lb/yr Weight gain Eyes History of glaucoma no ENT/Mouth Mouth sores/Dry mouth yes Cardiovascular Chest pain no Leg swelling no Respiratory Wheezing sometimes SOB Yes at times GI Nausea/vomiting 2x/ yr Constipation yes Abdominal pain no Skin/Breast Breast masses no Rash/ulcer no Musculoskeletal Muscle weakness no Trouble Walking Legs hurt Neurological Dizziness/falling no Numbness Balls of feet Psychiatric Depression meds not helping* Anxiety Endocrine Abnormal thirst no Menopause: Y/N / age? surgical Hot flashes Hematologic Frequent bruising no History of blood transfusions no Blood clots (DVT / PE) PE in 2013 Prior problems w/ anesthesia no Outside medical records reviewed: limited Data reviewed (images/urodynamic studies): NA To further delineate patient's urinary symptoms, a urine dip test and postvoid residual via bladderscanner were obtained. OBJECTIVE: BP 139/83 (BP Location (NBP): Right arm, Patient Position: Sitting, BP Cuff Sizes: Large Adult (32-43 cm)) Pulse 70 Temp 36.7 ??C (98 ??F) (Oral) Resp 16 Ht 160 cm (5' 3) Wt 105.4 kg (232 lb6.4 oz) SpO2 100% BMI 41.17 kg/m?? POC UA is negative for all components US PVR = 44 mL General: normal appearing female, pleasant mood, normal speech Skin: skin of abdomen/pelvis healed abdominoplasty scars Respiratory: clear to auscultation bilaterally Neuro: no paraspinous tenderness; saddle sensory function (S2-4) intact in the pelvic area to touch Cardiac: regular rate and rhythm, no appreciated murmurs Gastrointestinal: no palpable masses/organomegaly, soft/nontender, no appreciable hernia Musculoskeletal: levator ani tone (0-5): 2, levator ani contraction (0-5): 1, no levator tenderness Pelvic: Cough stress test (empty supine): positive External Genitalia: Vulva with exaggerated skin markings and erythema c/w lichen simplex chronicus, [place]'s and Bartholin glands normal, urethra without tenderness or mass Vagina: With Valsalva, the anterior vaginal wall comes to the hymen, the posterior vagina wall comes 2 cm above the hymen, and the cervix/apex comes 6 cm above the hymen Atrophic epithelium (yes/no)?: yes Discharge?: no Cervix: Appears normal Bimanual (uterus/adnexa): uterus surgically absent; no adnexal mass Rectovaginal: Enterocele: no Rectocele: minimal Anal sphincter: Resting tone: 2/5 Anal wink: faint External anal sphincter: intact POP Q Measurements: Aa 0 Ba 0 C -5 GH 2,3 PB 3, 2.5 TVL 6 Ap -2 Bp -2 D -6 Impression: Ms. Cummings is a .68 y.o. woman with: ?? 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 Recurrent stage 2 cystocele ?? Anal incontinence ?? Pelvic muscle wasting Recommendations: I reviewed the anatomy and physiology of EDDIE. We discussed options for management including: Continued observation, pelvic floor exercises (supervised or unsupervised), pessary and/or surgery. Based on the patient's expressed goals for management I have recommended the following: ?? We tried 3 small pessaries and all were intolerably uncomfortable for her. ?? She will follow though with pelvic floor PT ?? Info given about UUI, dietary and lifestyle factors, and pelvic support issues ?? We will start triamcinolone ointment daily for LSC; safe and appropriate dosing reviewed ?? She will return for a 30 min consult with a urogynecologist following completion of her PT. I spent 60 minutes total with the patient, with 20 minutes of the time spent [id number] in discussing her diagnosis and reviewing options for treatment. (x) ACOG or other informational pamphlets given to patient Saida Mistry APRN Division of Female Pelvic Medicine/Reconstructive Surgery CC: None Re Blum documented in this encounter Miscellaneous Notes Addendum Note - Saida Mistry APRN - 08/19/2018 2:00 PM EDT Addended by: SAIDA MISTRY on: 08/19/2018 03:14 PM Modules accepted: Orders documented in this encounter Plan of Treatment Upcoming Encounters Date Type Specialty Care Team Description 11/24/2021 Office Visit Neurology Gregg Lacy MD [place], [place] [address] (Wo rk) 04/06/2022 Appointment Radiology 04/06/2022 Office Visit Orthopaedics Wally Rouse MD [facility] ORTHOPAEDIC SURG [place], [place] [address] (Wo rk) documented as of this encounter Procedures Procedure Name Priority Date/Time Associated Diagnosis Comme nts BLADDER SCAN Routine 08/19/2018 Results for thi s procedure are i n the results section . POCT URINE DIPSTICK Routine 08/19/2018 Cystocele, midline Re sults for this procedure are i n the results section . documented in this encounter Results Bladder scan (08/19/2018) athologist Signature Scan 44ml Saida Mistry APRN NURSING TREATMENT ORDERABLES - ONCE OR AT INTERVALS POCT urine dipstick (08/19/2018) [facility] gist Method Time Signature POC Sp [place] 1.015 1.002 - 1.030 POC pH, UA 5 5.0 - 8.5 POC Leuk, UA negative Negative - Negative POC Nitrite, negative Negative - UA Negative POC Protein, negative Negative - UA Negative mg/dL POC Glucose, normal Normal - UA Normal mg/dL POC Ketone, UA negative Negative - Negative POC Urobil, UA normal 0.2 - 1.0 mg/dL POC Bili, UA negative Negative - Negative POC Blood, UA negative Negative - Negative chente/uL Saida Mistry APRN POINT OF CARE TEST ORDERABLE S documented in this encounter Visit Diagnoses Diagnosis Cystocele, midline Mixed incontinence Mixed incontinence urge and stress (male )(female) Full incontinence of feces Pelvic muscle wasting Lichen simplex chronicus Lichenification and lichen simplex chron icus documented in this encounter Care Teams Votator Machine Operator Relationship Specialty Start Date End Date None PCP - General 06/25/18 08/22/18 None documented as of this encounter
--- OUTSIDE RECORDS SUMMARY | 2021-10-13 15:52 | XMS_ITS | Encounter Summary ---
:1950 Author Organization [facility] [place] [address] Care Team Providers Name Role Phone None Primary Care Provider Unavailable Reason for Referral Diagnostic Test (Routine) - Closed Specialty Diagnoses / Procedures Referred By Contact Refer red To Contact Radiology Diagnoses Memory impairment Debbie Black, [facility] Rad Nuclear Med Procedures PET CT Brain Metabolic [place] [address] [facility] [place] [address] Referral ID Status Reason Start Date Expiration Date Visits V isits Requested Authorized [id number] Closed Specialty 08/19/2018 08/19/2019 1 1 Service Requested Encounter Details Date Type Department Care Team Description 08/19/2018 Office Visit Neurology at [facility] [place] Debbie Black, Memory impairment [facility] [place] [address] [place], [place] [address] (Wo rk) Social History Tobacco [...] Sign Reading Time Taken Comments Blood Pressure 126/74 08/19/2018 10:21 AM EDT Pulse 67 08/19/2018 10:21 AM EDT Temperature - - Respiratory Rate - - Oxygen Saturation - - Inhaled Oxygen Concentration - - Weight 104.3 kg (230 lb) 08/19/2018 10:21 AM EDT Height 160 cm (5' 3) 08/19/2018 10:21 AM EDT reported Body Mass Index 40.74 08/19/2018 10:21 AM EDT documented in this encounter Patient Instructions Patient InstructionsSoDebbie ford APRN - 08/19/2018 10:30 AM EDT Today we will order a PET scan of your brain. This will help determine if there is a neurodegenerative process occurring. In the meantime: - please seek activities outside your home - walk or do some physical activity daily - Keep tasks simple - Only take on 1 or 2 things at a time - Tasks should not come with any pressure or time constraint - adhere to a daily routine documented in this encounter Progress Notes Debbie Black APRN - 08/19/2018 10:30 AM EDT MEMORY CLINIC FOLLOW-UP Patient presents with her Interval history: states about 1 week ago he noticed more confusion with his . More instances of misplacing items. He also noticed yesterday she went to the office and she couldn't remember how to turn the computer on. Her also notices a change in her mood. She states she is grouchier. I get upset about everything. Her usp memory is intact. Short term memory difficult. Will misplace the papers in a different file. Personal items will be with business stuff. notes that he has taken over more of the responsibilities around the house. Will be sensitive to her 's tone. She has been having knee problems which has made her less active. She has an upcoming appointment tohave it evaluated for replacement. Plans to have it operated through [facility]. She reports having difficulty with staying focused. 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 Imagin07/05/2018 MRI brain: chronic microvascular disease Impression: Mrs. Cummings is a 68 year old woman who presents in follow-up. Reviewed findings of MRI. This shows some vascular changes. Both she and her have noted ongoing memory concerns. Concerned this couldbe Alzheimer's disease. PET scan brain ordered. Labs reviewed and no reversible cause noted. Encouraged patient to keep her neuropsych referral. Reviewed lifestyle modifications to assist with cognition. Follow-up after PET. documented in this encounter Plan of Treatment Upcoming Encounters Date Type Specialty Care Team Description 11/24/2021 Office Visit Neurology Gregg Lacy MD [place], [place] [address] (Wo rk) 04/06/2022 Appointment Radiology 04/06/2022 Office Visit Orthopaedics Wally Rouse MD [facility] ORTHOPAEDIC SURG [place], [place] [address] (Wo rk) documented as of this encounter Results PET CT Brain Metabolic (08/26/2018 8:14 AM EDT) Anatomical Region Laterality Modality Positron Emission To mography (PET) Specimen (Source) Anatomical Location Collection Method / Collectio n Time Received Time / Laterality Volume Impressions 08/26/2018 10:41 AM EDT Normal study without evidence of a primary dementia process. Preliminary report signed by: Antoine reid at 08/26/2018 10:20 AM I have personally reviewed the image(s) and the residents interpretation and agree with the findings, Suleman Weber at 08/26/2018 10:41 AM Thank you for letting us participate in the care of this patient. For questions regarding this report, please contact e number below. ? Narrative 08/26/2018 10:41 AM EDT EXAMINATION: PET CT BRAIN METABOLIC CLINICAL HISTORY: >6 mos memory impairme nt progressing; ?alzheimer's TECHNIQUE: Procedure: Following IV injec tion of 88-ppbqzi-9-deoxyglucose (FDG) and a standard uptake period of approxim ately 60 minutes, a noncontrast CT scan followed by a PET scan were acquired of the brain. The noncontrast CT was used for anatomic localization and photon att enuation correction of the PET scan. Blood glucose level: 88 (mg/dL): FDG dose: 11 mCi COMPARISON: None FINDINGS: There is normal appearing symm etric activity in all cortical regions of the brain. ??There is normal appearin g symmetric activity in the basal ganglia, thalami, and cerebellum. Procedure Note Suleman Weber MD - 08/26/2018Formatti ng of this note might be different from the original. EXAMINATION: PET CT BRAIN METABOLIC CLINICAL HISTORY: >6 mos memory impairme nt progressing; ?alzheimer's TECHNIQUE: Procedure: Following IV injec tion of 67-xnabib-6-deoxyglucose (FDG) and a standard uptake period of approxim ately 60 minutes, a noncontrast CT scan followed by a PET scan were acquired of the brain. The noncontrast CT was used for anatomic localization and photon att enuation correction of the PET scan. Blood glucose level: 88 (mg/dL): FDG dose: 11 mCi COMPARISON: None FINDINGS: There is normal appearing symm etric activity in all cortical regions of the brain. There is normal appearing symmetric activity in the basal ganglia, thalami, and cerebellum. IMPRESSION Normal study without evidence of a prima ry dementia process. Preliminary report signed by: Antoine reid at 08/26/2018 10:20 AM I have personally reviewed the image(s) and the residents interpretation and agree with the findings, Suleman Weber at 08/26/2018 10:41 AM Thank you for letting us participate in the care of this patient. For questions regarding this report, please contact e number below. Electronically signed by: Suleman Weber [facility] ([phone]), at 08/26/2018 10:41 AM Debbie Black [address] IMG PET ORDERABLES documented in this encounter Visit Diagnoses Diagnosis Memory impairment Memory loss Memory impairment Memory loss documented in this encounter Care Teams Plastic Technician Relationship Specialty Start Date End Date None PCP - General 06/25/18 08/22/18 None documented as of this encounter
--- OUTSIDE RECORDS SUMMARY | 2021-10-13 15:52 | XMS_ITS | Encounter Summary ---
:1950 Author Organization [facility] [place] [address] Care Team Providers Name Role Phone None Primary Care Provider Unavailable Reason for Referral Diagnostic Test (Routine) - Closed Specialty Diagnoses / Procedures Referred By Contact Refer red To Contact Radiology Diagnoses Memory impairment Debbie Black [facility] Rad Mri Procedures MRI Brain wo Contrast [place] [address] [facility] [place] [address] Referral ID Status Reason Start Date Expiration Date Visits V isits Requested Authorized [id number] Closed Specialty 06/25/2018 06/25/2019 1 1 Service Requested Reason for Visit Diagnostic Test (Routine) - Closed Specialty Diagnoses / Procedures Referred By Contact Refer red To Contact Radiology Diagnoses Memory impairment Debbie Black [facility] Rad Mri Procedures MRI Brain wo Contrast [place] [address] [facility] [place] [address] Referral ID Status Reason Start Date Expiration Date Visits V isits Requested Authorized [id number] Closed Specialty 06/25/2018 06/25/2019 1 1 Service Requested Encounter Details Date Type Department Care Team Description 07/05/2018 [place] En[place] [facility] [place] Black Memory impairment [facility] [place], [address] [place], [place] [address] [facility] MEDICINE [phone] [place], [place] [address] Social History Tobacco Use Types [...] Sig Dispensed Refills Start Date End Date levothyroxine (SYNTHROID) Take 100 mcg by 0 100 mcg Tablet mouth daily. multivitamin (THERAGRAN) Take 1 tablet by 0 Tablet mouth daily. magnesium 250 mg Tablet Take 500 mg by 0 mouth daily. cholecalciferol, Vitamin Take 1 capsule by 0 D3, 50 mcg (2,000 unit) mouth daily. Capsule ascorbic acid, vitamin C, Take 500 mg by 0 (VITAMIN C) 500 mg Tablet mouth daily. D-MANNOSE ORAL Take 1,500 mg by 0 /10/2019 mouth daily. vit Take 1 capsule by 0 020 C,Q-Zb-gxegz-lutein-zeaxa mouth daily. n (PRESERVISION AREDS-2) [phone] mi-uyij-fz-mg Capsule metFORMIN (GLUCOPHAGE) Take 2 tablets by 120 tablet 3 201808/25/2018 500 mg TabletIndications: mouth 2 times daily Impaired fasting glucose (with meals). buPROPion (WELLBUTRIN XL) Take 1 tablet by 30 tablet 3 02/0908/07/2018 300 mg Tablet Extended mouth every Release 24 hr morning. venlafaxine (EFFEXOR-XR) Take 150 mg by 0 018 01/27/2019 150 mg Capsule, Sust. mouth daily. Release 24 hr venlafaxine (EFFEXOR-XR) Take 75 mg by mouth 0 01/27/2019 75 mg Capsule, Sust. daily. Release 24 hr ELIQUIS 2.5 mg Tablet Take 2.5 mg by 1 05/10/2017 11/08/2020 mouth 2 times daily. documented as of this encounter Progress Notes Elia Sher RN - 07/02/2018 9:28 AM EDT MRI PRE-SEDATION ASSESSMENT NOTE NAME: Kiya Cummings AGE: 68 y.o. : [birth year] [facility] [address] Female [phone] (home) Telephone Information: None No primary care provider on file. Allergies Allergen Reactions ??? Sulfa (Sulfonamide Antibiotics) Hives ??? Ciprofloxacin ??? Macrodantin [Nitrofurantoin Macrocrystal] ??? Pramipexole Date/Time of call: July 02, 2018/9:27 AM/ PREVIOUS MRI SCAN? Yes HEIGHT: 5'3 WEIGHT: 230lbs SCHEDULED SCAN: MRI BRAIN WO CONTRAST [[id number]] 60 minutes, head first, supine. Appointment: 07/05/18 @ 1550 Where will study be performed? [facility] Reason for exam and clinical history: dementia protocol SUBJECTIVE: Claustrophobic CAN YOU LAY FLAT? Yes AIRWAY ISSUES? No DO YOU HAVE ANY INVOLUNTARY MOVEMENTS? No DO YOU HAVE ANY PAIN? No DO YOU TAKE PAIN MED ON A DAILY BASIS? No ASSESSMENT: Appropriate for PO sedation. PLAN: Valium 5-10 mg PO ( JLT ) You must have a local company flatbed truck driver present when you check in. This patient has been informed that they require a local company flatbed truck driver to drive them home after this procedure. In the absence of a local company flatbed truck driver, IR will not be able to sedate for your scan. Pt verbalized understanding of these instructions during the pre-procedure education via phone. Yes Name of local company flatbed truck driver: Nabil - Phone number: PRIOR SCAN DATE/S SEDATION TYPE SUCCESSFUL 07/05/18 MRI Brain wo Valium 5 mg PO x 2 documented in this encounter Plan of Treatment Upcoming Encounters Date Type Specialty Care Team Description 11/24/2021 Office Visit Neurology Gregg Lacy MD [place], [place] [address] (Wo rk) 04/06/2022 Appointment Radiology 04/06/2022 Office Visit Orthopaedics Wally Rouse MD [facility] ORTHOPAEDIC SURG [place], [place] [address] (Wo rk) documented as of this encounter Procedures Procedure Name Priority Date/Time Associated Diagnosis Comme nts MRI BRAIN WO Routine 07/05/2018 5:52 PM Memory impairment Resu lts for this CONTRAST EDT procedure are i n the results section. documented in this encounter Results MRI Brain wo Contrast (07/05/2018 5:52 PM EDT) Anatomical Region Laterality Modality Head Magnetic Resonance Specimen (Source) Anatomical Location Collection Method / Collectio n Time Received Time / Laterality Volume Impressions 07/06/2018 10:08 AM EDT 1. ??Nonspecific white matter signal abnormality, favored to represent chronic microvascular disease. 2. ??No acute intracranial process. 3. 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 Thank you for letting us participate in the care of this patient. For questions regarding this report, please contact litzy mathis number below. ? Narrative 07/06/2018 10:08 AM EDT EXAMINATION: MRI BRAIN WO CONTRAST CLINICAL HISTORY: Memory impairment TECHNIQUE: MRI of the brain performed without intra venous contrast administration.Dementia protocol. COMPARISON: None FINDINGS: No foci of abnormal diffusion restrictio n in the brain to suggest recent infarct. There are numerous foci of T2 p rolongation in the periventricular, deep, and subcortical white matter of deon th cerebral hemispheres as well as in the midbrain and tobi. These are nonspec ific, but commonly attributed to chronic microvascular disease. The ventricles ar e normal in caliber. No mass effect or extra-axial fluid collections. The hippo campi are symmetric in size and signal. The proximal intracranial flow voids are normal. No abnormal signal in the mastoid air ce lls. Mild mucosal thickening in the ethmoid and maxillary sinuses with parti al opacification of the inferior right maxillary sinus, probable mucus retentio n cyst(s). Severe bilateral TMJ arthropathy, with associated joint effus ion on the left. Procedure Note Venu Griffin MD - 07/06/2018Format ting of this note might be different from the original. EXAMINATION: MRI BRAIN WO CONTRAST CLINICAL HISTORY: Memory impairment TECHNIQUE: MRI of the brain performed without intra venous contrast administration.Dementia protocol. COMPARISON: None FINDINGS: No foci of abnormal diffusion restrictio n in the brain to suggest recent infarct. There are numerous foci of T2 p rolongation in the periventricular, deep, and subcortical white matter of deon th cerebral hemispheres as well as in the midbrain and tobi. These are nonspec ific, but commonly attributed to chronic microvascular disease. The ventricles ar e normal in caliber. No mass effect or extra-axial fluid collections. The hippo campi are symmetric in size and signal. The proximal intracranial flow voids are normal. No abnormal signal in the mastoid air ce lls. Mild mucosal thickening in the ethmoid and maxillary sinuses with parti al opacification of the inferior right maxillary sinus, probable mucus retentio n cyst(s). Severe bilateral TMJ arthropathy, with associated joint effus ion on the left. IMPRESSION 1. Nonspecific white matter signal abnor mality, favored to represent chronic microvascular disease. 2. No acute intracranial process. 3. 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 Thank you for letting us participate in the care of this patient. For questions regarding this report, please contact e number below. Debbie Black APRN IMG MRI ORDERABLES documented in this encounter Visit Diagnoses Diagnosis Memory impairment Memory loss documented in this encounter Administered Medications Inactive Administered Medications - up to 3 most recent administrations Medication Order MAR Action Action Date Dose Rate Site diazePAM (VALIUM) tablet 5 mg Given 07/05/2018 5:08 PM EDT 5 mg 5 mg, Oral, EVERY 30 MIN PRN, 2 doses, Starting on Sun07/05/18 at 0834, Until Sun07/05/18 at 1708, Anxiety, MRI, Angio/IR (Day of Procedure), Routine Given 07/05/2018 4:36 PM EDT 5 mg documented in this encounter Care Teams Flarer Relationship Specialty Start Date End Date None PCP - General 06/25/18 08/22/18 None documented as of this encounter
--- OUTSIDE RECORDS SUMMARY | 2021-10-13 15:52 | XMS_ITS | Encounter Summary ---
:1950 Author Organization [facility] [place] [address] Care Team Providers Name Role Phone Ekaterina Omer MD Primary Care Provider Encounter Details Date Type Department Care Team Description 01/10/2019 Office Visit Physical Therapy at [facility] Diso rder of muscle, ligament, and fascia; [address] PT Urinary and fecal incontinence [address] [place] [address] PHYSICAL MEDICINE [phone] & [place] [address] Social History Tobacco Use Types Packs/Day Years Used Date Former Smoker Cigarettes 1 10 Quit: 05/10/18 73 Smokeless Tobacco: Never Used Alcohol Use Standard Drinks/Week Comments No 0 (1 standard drink = 0.6 oz pure alcoho l) Sex Assigned at Date Recorded Female 01/18/2021 7:28 AM EST documented as of this encounter Progress Notes Alessandra Cabrera, PT - 01/10/2019 9:30 AM EDT Physical Therapy Progress Note Total treatment time: 28 minutes Total timed code treatment: 28 minutes Date of Exam/First Treatment: 08/23/2018 Date of onset: chronic Referring Provider: Re Blum MD, Saida Mistry APRN, William Jones, MD Diagnosis and comorbidities: 1. Disorder of muscle, ligament, and fascia ?? 2. Urinary and fecal incontinence ? Medicare Certification period: 08/23/2018 - 11/22/18 Re-certification period: 11/23/18 - 02/21/19 Goals: Short term goals (4 weeks) 1. Patient to be indep in the performance of a home program of pelvic floor muscle exercises on a daily basis. met 2. Patient will demonstrate an increase in pelvic floor muscle endurance from 4 to 20 repetitions of5 seconds hold. met 3. Patient to complete SEMG evaluation. met 4. Patient will demonstrate knowledge of toilet positioning and techniques. met ?? Goals: USP goals (3 months) 1. Patient to be independent with ongoing self management. met 2. Patient will have decreased number of episodes of UI by 25%. met 3. ADL???s not limited by UI, urgency or frequency. met 4. Patient will have decreased episodes of FI by 25%. met S: Patient reports she has been doing the HEP daily, but may not do 10 at a time. Feels the pelvic floor muscles are stronger. Notes decreased episodes of UI and FI overall. She has only had FI when she has diarrhea. When the stool is formed, she does not have any FI. She has been able to hold her urine longer and make it to the toilet without UI. She has stopped wearing pads daily. Pleased with her progress. O: Treatment: neuro re-ed x 2 Previous session: 09/06/18 Patient gives verbal consent to external and internal exam. ?? External Exam: Introitus: open at rest, loose, slightly asymmetric, atrophic signs, perineal scar into rectum Introitus: perineal descent with cough Pelvic Floor Contraction: mild levator ani activity with perineal body elevation, with inhalation, abdominal and LE/gluteal overflow, decreased overflow with cues Valsalva: mild, moderate pelvic floor excursion with signs of anterior and posterior laxity ?? Palpation: Non-tender to pelvic clock ?? Internal Exam: Levator ani muscle strength: 3:00 3+/5, 6:00 3+/5, and 9:00 3+/5, derecruitment to baseline, with inhalation, and mild LE, gluteal and abdominal overflow, decreased overflow with cues, able to contracton exhalation with consistent cues Levator ani muscle tone: 2/5, diffuse tenderness Hold Time: 5 seconds, # of reps: 10, coordinated with breathing Valsalva: mild, moderate pelvic floor excursion with signs of anterior and posterior laxity ?? Rectal Exam: External anal sphincter: strength: 2+/5, tone: 2/5, hold time: 5 seconds, anterior thinning or rectal sphincter, Valsalva: mild to moderate pelvic floor excursion, without muscle contraction ?? SEMG: with internal electrode in supine: rectal sensor Resting Rate: 3 uV, decreased to 1.5 uV Quick flicks: uV x reps Long Hold: 25 uV x 5 seconds x ~20 reps, with cue to coordinate with exhalation?? Today: Patient gives verbal consent to external and internal exam. ?? External Exam: Introitus: open at rest, loose, slightly asymmetric, atrophic signs, perineal scar into rectum Introitus: perineal descent with cough Pelvic Floor Contraction: mild/moderate levator ani activity with perineal body elevation, with exhalation, and mild abdominal and LE/gluteal overflow, decreased overflow with cues Valsalva: mild, moderate pelvic floor excursion with signs of anterior and posterior laxity ?? Palpation: Non-tender to pelvic clock ?? Internal Exam: Levator ani muscle strength: 3:00 3+/5, 6:00 3+/5, and 9:00 3+/5, derecruitment to baseline, with exhalation, and mild LE, gluteal and abdominal overflow, decreased overflow with cues Levator ani muscle tone: 2/5, diffuse tenderness Hold Time: 8 seconds, # of reps: 4 Valsalva: mild, moderate pelvic floor excursion with signs of anterior and posterior laxity ?? Rectal Exam: External anal sphincter: strength: 3/5, tone: 2/5, hold time: 8 seconds, anterior thinning of rectalsphincter, Valsalva: mild to moderate pelvic floor excursion, without muscle contraction ?? SEMG: with internal electrode in supine: rectal sensor - deferred as patient forgot sensor pelvic floor muscle exercises in sitting discussion on purpose and benefit of a pelvic floor muscle strengthening program, the importance of challenging the muscles to do more than they are used to in order to make progress with strength and endurance Review and progress HEP: PT treatment of muscle weakness with FI and UI, toilet positioning and techniques including manual splinting, diaphragmatic breathing for relaxation/downtraining, diaphragmaticbreathing coordinated with pelvic floor muscle exercise, discussion on intra abdominal pressure and the impact on pelvic floor and UI/FI and preventative, and pelvic floor muscle exercises: LH 10 seconds with subtle squeeze again, rest 10 seconds with full relaxation, x ~5-10 reps to fatigue, rest, then LH 5 seconds, rest 10 seconds with full relaxation, x ~10-20 reps to fatigue, for a total of 2 sessions/day in supine and/or sitting A: Underactive pelvic floor muscles??with muscle weakness, anal incontinence and mixed urinary incontinence.?Patient performs a fair voluntary pelvic floor muscle contraction with voluntary relaxation. Decreased rectal sphincter muscle strength and tone with signs of sphincter defect. Patient demonstrates gain in pelvic floor muscle exercise consistency, motor control, strength and endurance with report of decreased symptoms of FI and UI. Independent with HEP and self care. P: D/c PT. Patient to continue with HEP on her own. Patient knows to contact me with any questions or concerns. documented in this encounter Plan of Treatment Upcoming Encounters Date Type Specialty Care Team Description 11/24/2021 Office Visit Neurology Gregg Lacy MD [place], [place] [address] (Wo rk) 04/06/2022 Appointment Radiology 04/06/2022 Office Visit Orthopaedics Wally Rouse MD [facility] ORTHOPAEDIC SURG [place], [place] [address] (Wo rk) documented as of this encounter Visit Diagnoses Diagnosis Disorder of muscle, ligament, and fascia Unspecified disorder of muscle, ligament , and fascia Urinary and fecal incontinence Unspecified urinary incontinence documented in this encounter Care Teams Academic Tutor Relationship Specialty Start Date End Date Ekaterina Omer MD PCP - General General Internal Medicine 08/23/18 [address] [place] [address] documented as of this encounter
--- OUTSIDE RECORDS SUMMARY | 2021-10-13 15:52 | XMS_ITS | Encounter Summary ---
:1950 Author Organization [facility] [place] [address] Care Team Providers Name Role Phone Ekaterina Omer MD Primary Care Provider Encounter Details Date Type Department Care Team Description 07/16/2020 Office Visit Obstetrics and Robert, Edwin S, Morbid o besity with BMI of 40.0-44.9, adult; Gynecology at [facility] Full incontinence of feces; [facility] [address] ed incontinence [address] [place] [phone] Social History Tobacco Use Types Packs/Day Years [...] Sign Reading Time Taken Comments Blood Pressure 121/53 07/16/2020 8:34 AM EDT Pulse 60 07/16/2020 8:34 AM EDT Temperature 36.5 ??C (97.7 ??F) 07/16/2020 8:34 AM EDT Respiratory Rate 16 07/16/2020 8:34 AM EDT Oxygen Saturation 97% 07/16/2020 8:34 AM EDT Inhaled Oxygen Concentration - - Weight 105.2 kg (232 lb) 07/16/2020 8:34 AM EDT Height 157.5 cm (5' 2) 07/16/2020 8:34 AM EDT Body Mass Index 42.43 07/16/2020 8:34 AM EDT documented in this encounter Progress Notes Edwin Magaña MD - 07/16/2020 9:00 AM EDT Female Pelvic Medicine and Reconstructive Surgery @ [facility] Follow-up Patient Name: Kiya Cummings Patient Primary Care Provider: Ekaterina Omer MD Patient Active Problem List Diagnosis Code ??? [...] E66.01, Z68.41 ??? Mild cognitive impairment G31.84 Chief Complaint: Fecal incontinence and urinary urge incontinence History of Present Illness: Ms. Cummings is a 70 y.o. old para 2 woman, last seen Nov 2018 for dual urine and fecal incontinence. At that time she was doing relatively well with conservative measures; PT,Metamucil and avoidance of bladder irritants. Her fecal incontinence, however, has worsened despite these measures. BM x3/day on average, ranges from soft to firm, passive FI x1-2/day (usually small). Has FI with passing flatus followed by large vol urge FI x3/week. Still taking Metamucil x1/day. Her urge urinary incontinence has also worsened. UUI x4/day, large volume. Uses 5-6 pads/day. JONATHAN x1-2/day, small drops. However, no recurrent UTIs. In August 2018 a pessary was attempted for anterior prolapse but was uncomfortable. No sensation of vaginal bulge. She had talked with Dr. Blum and Saida Mistry about sacral neurostimulation if conservative measures failed and now she thinks she needs the procedure. Past Medical History: Diagnosis Date ??? Allergy 1979 sulfur and 2013 sipro ??? Asthma 1977 Mild intermittant ??? Cataract ??? Diverticulitis 2004 ??? ENT disease 2009 tinnitus ??? GERD [...] by Caleb Tineo MD at [facility] ENDOSCOPY ??? PRO EXCISE EXCESS SKIN TISSUE, ABDOMEN N/A 03/06/2014 ABDOMINOPLASTY performed by Marcos Vance MD at [facility] MAIN OR ??? PRO UNLISTED PROCEDURE, [...] Outpatient Medications Marked as Taking for the 07/16/20 encounter (Office Visit) with Edwin Magaña MD Medication Sig Dispense Refill ??? donepeziL (Aricept) 10 mg Tablet ??? amLODIPine (Norvasc) 2.5 mg Tablet amlodipine 2.5 mg tablet ??? atorvastatin (Lipitor) 20 mg Tablet atorvastatin 20 mg tablet ??? buPROPion XL (Wellbutrin XL) 150 mg Tablet Extended Release 24 hr Take 150 mg by mouth every morning. Taking in addition to the 300mg for a total of 450mg daily. ??? metFORMIN (Glucophage) 500 mg Tablet Take 500 mg by mouth 2 times daily (with meals). ??? omeprazole (PriLOSEC) 40 mg Capsule, Delayed [...] Types: Cigarettes Quit date: 05/10/1972 Years since quittin.2 ??? Smokeless tobacco: Never Used Substance and Sexual Activity ??? Alcohol use: No ??? Drug use: No ??? Sexual activity: Not on file Comment: deferred Other Topics Concern ??? Exercise: Patient reported No ??? Abuse or Threat: Physical, Sexual, Verbal No Social History Narrative Ms. Cummings lives in [place], [place] with her . 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 She has prior history of radon exposure [...] Week: ??? Minutes of Exercise per Session: Stress: ??? Feeling of Stress : Social Connections: ??? Frequency of Communication with Friends and Family: ??? Frequency of Social Gatherings with Friends and Family: ??? Attends Latter Day Services: ??? Active Member of Clubs or Organizations: ??? Attends Club or Organization Meetings: ??? Marital Status: Intimate Partner Violence: ??? Fear of Current or Ex-Partner: ??? Emotionally Abused: ??? Physically Abused: ??? Sexually Abused: Family History Problem Relation Age of Onset ??? Alcohol Use Disorder Sister ??? Thrombophilia Mother ??? Coronary Artery Disease Mother ??? High Blood Pressure Mother ??? Cervical Cancer Mother ??? Parkinsonism Father ??? Stomach Cancer Brother ??? Obesity Brother ??? Diabetes Brother ??? Myocardial Infarction Brother ??? Obesity Sister ??? Gallbladder Disease Son Gallstones s/p cholecystectomy OBJECTIVE: BP 121/53 Pulse 60 Temp 36.5 ??C (97.7 ??F) Resp 16 Ht 157.5 cm (5' 2) Wt 105.2 kg (232 lb) SpO2 97% BMI 42.43 kg/m?? General: normal appearing female, pleasant mood, normal speech Skin: skin of abdomen/pelvis normal appearance Gastrointestinal: umbilical scar, no palpable masses/organomegaly, soft/nontender, no appreciable hernia Musculoskeletal: levator ani tone (0-5): 1, levator ani contraction (0-5): 2, no levator tenderness;lower extremity motor 5/5 bilaterally Pelvic: Cough stress test (empty supine): neg External Genitalia: Vulva, [place]'s and Bartholin glands normal, urethra without tenderness or mass. LS under good control. Vagina: See POPQ Atrophic epithelium (yes/no)?: yes Discharge?: no Cervix: normal Bimanual (uterus/adnexa): mobile cervix Rectovaginal: Enterocele: no Rectocele: no Anal sphincter: Resting tone 2/5 and squeeze 2/5 Anal wink: present External anal sphincter: attenuated between 10 and 2 o'clock POP Q Measurements: Aa -1 Ba -1 C -5 GH 2, 3 PB 3, 3 TVL 8 Ap -1 Bp -1 D -6 Impression: Ms. Cummings is a .70 y.o. woman with: ?? Anal incontinence refractory to conservative measures in the setting of OASIS ?? 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 I discussed the SNM procedure with the patient, including risks and benefits. As part of our discussion, we reviewed risks including but not limited to infection, bleeding, injury to nerve. We discussed that the first stage will involve placement of the S3 lead and attaching to an externalgenerator. If she has a 50% improvement, the second stage, placing a permanent generator, will be performed 1-2 weeks later. We reviewed that there is approximately 1% risk of fracture of an electrode with removal, resulting in a retained fragment. We also discussed risks of lead migration and lack of effect over time. We discussed that the generator lasts 3-5 years and then may need replacement. Recommendations: Repeat bowel and bladder diaries Return for pre-op in anticipation of SNM stage 1 and 2 I spent 30 minutes total with the patient, with 20 minutes of the time spent [id number] in discussing her diagnosis and reviewing options for treatment. Edwin Magaña MD Division of Female Pelvic Medicine/Reconstructive Surgery documented in this encounter Miscellaneous Notes Addendum Note - Edwin Magaña MD - 07/16/2020 9:00 AM EDT Addended by: EDWIN MAGAÑA on: 07/30/2020 03:50 PM Modules accepted: Orders, SmartSet documented in this encounter Plan of Treatment Upcoming Encounters Date Type Specialty Care Team Description 11/24/2021 Office Visit Neurology Gregg Lacy MD [place], [place] [address] (Wo rk) 04/06/2022 Appointment Radiology 04/06/2022 Office Visit Orthopaedics Wally Rouse MD [facility] ORTHOPAEDIC SURG [place], [place] [address] (Wo rk) documented as of this encounter Visit Diagnoses Diagnosis Morbid obesity with BMI of 40.0-44.9, ad ult Morbid obesity Full incontinence of feces Mixed incontinence Mixed incontinence urge and stress (male )(female) documented in this encounter Care Teams Online Producer Relationship Specialty Start Date End Date Ekaterina Omer MD PCP - General General Internal Medicine 08/23/18 [address] [place] [address] documented as of this encounter
--- OUTSIDE RECORDS SUMMARY | 2021-10-13 15:52 | XMS_ITS | Encounter Summary ---
:1950 Author Organization [facility] [place] [address] Care Team Providers Name Role Phone Ekaterina Omer MD Primary Care Provider Encounter Details Date Type Department Care Team Description 09/15/2020 Office Visit Orthopaedics at [facility] Jason Hernandez, Right dorsal hand [facility] [place] [address] [place] [address] ORTHOPAEDIC SURGERY [place], [place] [address] Social History Tobacco Use Types Packs/Day Years Used Date Former Smoker Cigarettes 1 10 Quit: 05/10/18 73 Smokeless Tobacco: Never Used Alcohol Use Standard Drinks/Week Comments No 0 (1 standard drink = 0.6 oz pure alcoho l) Sex Assigned at Date Recorded Female 01/18/2021 7:28 AM EST documented as of this encounter Progress Notes Blair Dunne MD - 09/15/2020 10:10 AM EDT Images from the original note were not included. Chief complaint: right dorsal hand pain History of present illness: Kiya Cummings is a 70 y.o. year-old female who presented to the orthopedic clinic for evaluation of her left distal humerus fracture and treatment recommendations per Dr. Ha. During her encounter with the cast technologist, there was noted right dorsal hand erythema, pain, and tenderness and I was asked to evaluate the patient. The patient reports that during her recent admission to the hospital at [facility] she had an IV into her right dorsal hand. When the IV was removed there was some surrounding erythema. This had progressedwith increasing erythema pain, tenderness, and more recently some drainage of purulence. Overall, this is actually improved since it was its worse a few days ago. She denies any fevers, sweats, chills,chest pain, or dyspnea. Past medical history: Patient Active Problem List [...] S/P panniculectomy 06/25/2014 ??? Rectus diastasis 10/01/2013 History of blood clots or bleeding disorders: see above, PE Medications: ??? acetaminophen (Tylenol) 500 mg Tablet ??? [...] No chest pain or shortness of breath at baseline No fevers, night sweats or chills Vital signs: Temp: -- Physical Exam: Pleasant, cooperative, elderly female in no acute distress. Regular rate and rhythm felt peripherally. Breathing comfortably on room air. Right upper extremity focused examination shows erythema measuring 4 cm x 2 cm over the right dorsal hand. This starts distally where there is evidence of prior IV line placement and extends more proximally. This is firm to palpation and nonmobile. There is no fluctuance noted. There is no expressible purulence. This area of induration is very tender to palpation. Sensation and motor are intact throughout the entire hand. There is palpable radial pulse and brisk capillary refill. Assessment: 70 y.o. year-old female presents with right dorsal hand thrombophlebitis after IV insertion during her admission at [facility]. Given the surrounding erythema and concern for possible superficial infection, our recommendation is for oral antibiotics at this time. We will plan to prescr cesar 10 days of oral Keflex 500 mg 4 times daily. Allergies were confirmed. Of note the patient is being evaluated by Dr. Ha for left distal humerus fracture and planning for surgical management next week. I think that is important to get this infection under control before her surgery. Our plan is to have her take the oral antibiotics and due to her distance, have a telehealth or in person follow-up visit with one of the trauma team members for evaluation of improvementof her thrombophlebitis. Plan: Oral Keflex 500 mg 4 times daily. Follow-up early next week prior to surgery for physical examand evaluation of right hand erythema. Follow up: Early next week for physical exam evaluation by one of the trauma team members. No xray needed prior to visit. This plan was discussed with the patient and they are in agreement. All of the patient's questions were answered. The above dictation was made with voice recogonition software Blair Dunne MD Orthopaedic Surgery Pager [phone] I have seen and examined the above named patient, reviewed and edited the contents of the note supplied by the resident or physician remote sensing scientist with whom I saw the patient, and reviewed our findings and recommendations with the patient in person. Jason Hernandez MD, MPH Department of Orthopaedic Surgery Pediatric Orthopaedic & Hand Surgeon documented in this encounter Plan of Treatment Upcoming Encounters Date Type Specialty Care Team Description 11/24/2021 Office Visit Neurology Gregg Lacy MD [place], [place] [address] (Wo rk) 04/06/2022 Appointment Radiology 04/06/2022 Office Visit Orthopaedics Wally Rouse MD [facility] ORTHOPAEDIC SURG [place], [place] [address] (Wo rk) documented as of this encounter Visit Diagnoses Diagnosis Right dorsal hand phlebitis documented in this encounter Care Teams Diesel Truck Technician Relationship Specialty Start Date End Date Ekaterina Omer MD PCP - General General Internal Medicine 08/23/18 [address] [place] [address] documented as of this encounter
--- OUTSIDE RECORDS SUMMARY | 2021-10-13 15:52 | XMS_ITS | Encounter Summary ---
:1950 Author Organization [facility] [place] [address] Care Team Providers Name Role Phone Ekaterina Omer MD Primary Care Provider Reason for Referral Psychiatric (Routine) - Specialty Diagnoses / Procedures Referred By Contact Refer red To Contact Neuropsychology Diagnoses Memory impairment [place] [address] Referral ID Status Reason Start Date Expiration Date Visits V isits Requested Authorized [id number] Consult, 01/27/2019 07/26/2019 1 1 Test & Treat Encounter Details Date Type Department Care Team Description 01/27/2019 Office Visit Neurology at [facility] Debbie Black, Memory impairment [facility] [place] [address] [place], [place] [address] (Wo rk) Social History Tobacco [...] Sign Reading Time Taken Comments Blood Pressure 138/62 01/27/2019 11:35 AM EST Pulse 62 01/27/2019 11:35 AM EST Temperature - - Respiratory Rate - - Oxygen Saturation - - Inhaled Oxygen Concentration - - Weight 108.5 kg (239 lb 3.2 oz) 01/27/2019 11:35 AM EST Height 162.6 cm (5' 4) 01/27/2019 11:35 AM reported EST Body Mass Index 41.06 01/27/2019 11:35 AM EST documented in this encounter Patient Instructions Patient InstructionsSoDebbie ford APRN - 01/27/2019 11:30 AM EST MEMORY PROGRAM AT [facility]: [phone] [place] [facility]: Call Today: [phone] [place] [facility] : documented in this encounter Progress Notes Debbie Black APRN - 01/27/2019 11:30 AM EST MEMORY CLINIC FOLLOW-UP Patient presents with her . Interval History: Has gone to occupational therapy. Has gone to speech and language therapy. Feels that has been helpful. Has a daily associate merchandise planner. Keeping information in one location. No falls. No trips to the hospital. Having grandchilldren over for [employer]. Going to [place] after they leave. No longer taking effexor. Now taking lexapro. States she feels like it is starting to make her feel better. No longer taking metformin. PCP doesn't think she needs it. Impression: Ms. Cummings is a 69 year old woman who presents for follow-up. Her cognition has not changed and she reports some benefit with therapies. Referral placed for neuropsych testing for further evaluation. HerPET scan was negative for a dementia process. Encouraged blood pressure and blood sugar management for vascular health. No medication started at this time. Encouraged daily physical and social activity. Reviewed importance of writing important information in one location. Follow-up in 1 year. At least 16 minutes of this 30 minute visit was spent counseling patient as documented above. documented in this encounter Plan of Treatment Upcoming Encounters Date Type Specialty Care Team Description 11/24/2021 Office Visit Neurology Gregg Lacy MD [place], [place] [address] (Wo rk) 04/06/2022 Appointment Radiology 04/06/2022 Office Visit Orthopaedics Wally Rouse MD [facility] ORTHOPAEDIC SURG [place], [place] [address] (Wo rk) Scheduled Referrals Name Type Priority Associated Order Schedule Diagnoses Referral to Outpatient Referral Routine Memory impairment Ord ered: Psychiatry 01/27/2019 documented as of this encounter Visit Diagnoses Diagnosis Memory impairment Memory loss documented in this encounter Care Teams Fountain Brush Assembler Relationship Specialty Start Date End Date Ekaterina Omer MD PCP - General General Internal Medicine 08/23/18 [address] [place] [address] documented as of this encounter
--- OUTSIDE RECORDS SUMMARY | 2021-10-13 15:52 | XMS_ITS | Encounter Summary ---
:[address] [facility] [place] [address] Care Team Providers Name Role Phone Ekaterina Omer MD Primary Care Provider Reason for Visit Reason Comments Follow-up Encounter Details Date Type Department Care Team Description 11/29/2018 Office Visit Obstetrics and Wliliam Jones, Mixed in continence; Gynecology at [facility] Full incontinence of feces; [facility] Pel hung muscle wasting; Drive Cystocele, [place] [phone] Social History Tobacco Use Types Packs/Day Years [...] Sign Reading Time Taken Comments Blood Pressure 129/58 11/29/2018 10:52 AM EDT Pulse 71 11/29/2018 10:52 AM EDT Temperature 36.7 ??C (98 ??F) 11/29/2018 10:52 AM EDT Respiratory Rate - - Oxygen Saturation 97% 11/29/2018 10:52 AM EDT Inhaled Oxygen Concentration - - Weight 107.1 kg (236 lb 1.6 oz) 11/29/2018 10:52 AM EDT Height 165.1 cm (5' 5) 11/29/2018 10:52 AM EDT Body Mass Index 39.29 11/29/2018 10:52 AM EDT documented in this encounter Progress Notes William Jones MD - 11/29/2018 11:15 AM EDT Female Pelvic Medicine and Reconstructive Surgery @ [facility] Follow-up Patient Name: Kiya Cummings Patient Primary [...] a 68 y.o. old para 2 woman, here for follow-up for dual urine and fecal incontinence. She saw Dr. Re Blum in June at which time she was reporting once/twice daily passive FI of formed and loose stool. Per those notes, she had no sensation of passing stool - couldn't tell the difference between gas and stool. Dr. Blum referred her for pelvic floor PT and started Metamucil. Also at that time was reporting urge urinary incontinence 3-5 times daily. Changes a pad 3-5 times daily - wears this for stool and urine. Recurrent UTIs - every 5-6 weeks. She saw Saida Mistry APRN, in August at which time she reported mixed UI (urge dominant) with x3-4 episodes daily. A pessary was attempted for anterior prolapse but was uncomfortable. Over the summer, she has continued with the diet changes, Metamucil and Alessandra Cabrera, PT. This combination has improved her symptoms significantly. - Taking Metamucil once in the morning and with that usually is x1-2/day BM, normal consistency. Still has about x1 weekly episode of diarrhea, usually lasting several hours During the diarrheal episodes, she reports some small amount of FI but this is limited to once weekly and triggered by going out and eating greasy meals. - Urge UI is about x1-2/week since not drinking many bladder irritants, just coffee x1/day. Taking Estrogen cream transvaginally for UTI prevention. - JONATHAN has also improved significantly improved with PT and weight loss - she doesn't think she does this anymore. - No sensation of vaginal bulge. She had talked with Dr. Blum and Saida Mistry about sacral neurostimulation if conservative measures failed but now she thinks she does not need the procedure. Past Medical History: Diagnosis Date ??? Allergy 1979 sulfur and 2013 sipro ??? Asthma 1978 Mild intermittant ??? Cataract ??? Diverticulitis 2004 [...] DIAGNOSTIC performed by Caleb Tineo MD at [facility] ENDOSCOPY ??? PRO EXCISE EXCESS SKIN TISSUE, ABDOMEN N/A 03/06/2014 ABDOMINOPLASTY performed by Marcos Vance MD at [facility] MAIN OR ??? PRO UNLISTED [...] Outpatient Medications Marked as Taking for the 11/29/18 encounter (Office Visit) with Wander Jones MD Medication Sig Dispense Refill ??? escitalopram (LEXAPRO) 10 mg Tablet take 1 tablet by mouth once daily 0 ??? metFORMIN (GLUCOPHAGE) 500 mg Tablet Take 2 tablets by mouth 2 times daily (with meals). 120 tablet 3 ??? triamcinolone (KENALOG) 0.1 % Ointment Apply a very thin film to irritated skin twice a day if needed for itching of vulva 30 g 0 ??? buPROPion (WELLBUTRIN XL) 300 mg Tablet Extended Release 24 hr Take 1 tablet by mouth every morning. 30 tablet 3 ??? levothyroxine (SYNTHROID) 100 mcg Tablet Take 100 mcg by mouth daily. ??? multivitamin (THERAGRAN) Tablet Take 1 tablet by mouth daily. ??? D-MANNOSE ORAL Take 1,500 mg by mouth daily. ??? vit C,D-Ni-rsapf-lutein-zeaxan (PRESERVISION AREDS-2) [id number] wm-[id number]-mg Capsule Take 1 capsule by mouth daily. [...] Last attempt to quit: 05/10/1972 Years since quittin.5 ??? Smokeless tobacco: Never Used Substance and Sexual Activity ??? Alcohol use: No ??? Drug use: No ??? Sexual activity: Not on file Comment: deferred Lifestyle ??? Physical activity: Days per week: Not on file Minutes per session: Not on file ??? Stress: Not on file Relationships ??? Social connections: Talks on phone: Not on file Gets together: Not on file Attends islam service: Not on file Active member of [...] Social History Narrative Ms. Cummings lives in [place], [place] with her . 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 She has prior history of radon exposure but this is since been mitigated in her home. She has not had significant occupational exposures to dusts or fumes although there is an incidental exposures or work. She has 2 adult children. She and her frequently winter in [place]. She enjoys watching TV and biking. Family History Problem Relation Age of Onset ??? Alcohol Abuse Sister ??? Thrombophilia Mother ??? Coronary Artery Disease Mother ??? High Blood Pressure Mother ??? Cervical Cancer Mother ??? Parkinsonism Father ??? Stomach Cancer Brother ??? Obesity Brother ??? Diabetes Brother ??? Myocardial Infarction Brother ??? Obesity Sister ??? Gallbladder Disease Son Gallstones s/p cholecystectomy OBJECTIVE: BP 129/58 (BP Location (NBP): Right arm, Patient Position: Sitting) Pulse 71 Temp 36.7 ??C (98 ??F) Ht 165.1 cm (5' 5) Wt 107.1 kg (236 lb 1.6 oz) SpO2 97% BMI 39.29 kg/m?? General: normal appearing female, pleasant mood, normal speech Remainder of exam deferred Impression: Ms. Cummings is a .68 y.o. woman with: ?? 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 Recurrent stage 2 cystocele ?? Anal incontinence ?? Pelvic muscle wasting All of the above have improved with PT, Metamucil, ongoing weight loss and dietary changes Recommendations: Continue current management Keep attending PT appts with Alessandra Cabrera Avoid greasy meals for further improvement in FI control Return PRN I spent 30 minutes total with the patient, with 30 minutes of the time spent [id number] in discussing her diagnosis and reviewing options for treatment. William Jones MD Division of Female Pelvic Medicine/Reconstructive Surgery documented in this encounter Plan of Treatment Upcoming Encounters Date Type Specialty Care Team Description 11/24/2021 Office Visit Neurology Gregg Lacy MD [place], [place] [address] (Wo rk) 04/06/2022 Appointment Radiology 04/06/2022 Office Visit Orthopaedics Wally Rouse MD [facility] ORTHOPAEDIC SURG [place], [place] [address] (Wo rk) documented as of this encounter Visit Diagnoses Diagnosis Mixed incontinence Mixed incontinence urge and stress (male )(female) Full incontinence of feces Pelvic muscle wasting Cystocele, midline documented in this encounter Care Teams Condenser Tester Relationship Specialty Start Date End Date Ekaterina Omer MD PCP - General General Internal Medicine 08/23/18 [address] [place] [address] documented as of this encounter
--- OUTSIDE RECORDS SUMMARY | 2021-10-13 15:52 | XMS_ITS | Encounter Summary ---
:1950 Author Organization [facility] [place] [address] Care Team Providers Name Role Phone Ekaterina Omer MD Primary Care Provider Reason for Visit Physical Therapy (Routine) - Specialty Diagnoses / Procedures Referred By Contact Refer red To Contact Physical Therapy Diagnoses Full incontinence of feces Re Blum MD [facility] D R [address] [place] [phone] Fax: Referral ID Status Reason Start Date Expiration Date Visits V isits Requested Authorized [id number] Evaluate and 07/02/2018 07/02/2019 12 12 Treat Encounter Details Date Type Department Care Team Description 08/23/2018 Office Visit Physical Therapy at [facility] rder of muscle, ligament, and fascia; [facility] PT Urinary and fecal incontinence [address] [place] [address] PHYSICAL MEDICINE [phone] & [place] [address] Social History Tobacco Use Types Packs/Day Years Used Date Former Smoker Cigarettes 1 10 Quit: 05/10/18 73 Smokeless Tobacco: Never Used Alcohol Use Standard Drinks/Week Comments No 0 (1 standard drink = 0.6 oz pure alcoho l) Sex Assigned at Date Recorded Female 01/18/2021 7:28 AM EST documented as of this encounter Miscellaneous Notes Initial Evaluation - Gavin Cabrera, PT - 08/23/2018 12:00 PM EDT Physical Therapy Initial Evaluation Note: Outpatient Date of Exam/First Treatment: 08/23/2018 Date of onset: chronic Referring Provider: Re Blum MD, Saida Mistry APRN Diagnosis and comorbidities: 1. Disorder of muscle, ligament, and fascia 2. Urinary and fecal incontinence Medicare Certification period: 08/23/2018 - 11/22/18 History of current problem: Kiya Cummings is a 68 y.o. female referred to physical therapy for muscleweakness with anal incontinence and mixed urinary incontinence. Patient reports episodes of fecal incontinence that she would mostly find on her underwear without awareness that it happened. Then she would get a UTI. Notes episodes of UI with coughing, sneezing, laughing, urge, on the way to the toilet and without warning. She had 2 PT appointments in 2016. Symptoms improved when she was doing the pelvic floor muscle exercises. Unfortunately, she stopped doing the exercises and her incontinence symptoms worsened. Scheduled for a PET scan next week as she has been having problems with memory. Patient's expressed goals for treatment: more control of bladder and bowels Previous treatment/self care: restarted kegels ~2 weeks ago and noticed some improvement in her symptoms, metamucil daily Gynecologic/Obstetric History: : 2 Para: 2 Episiotomy/Tearing/Repair: No weight of largest baby: 8.10 Difficulty healing after delivery: No : No Difficult Childbirth: No ?? History of sexual abuse or trauma: No Regular menstrual cycles: No: hysterectomy ~33 years ago, cystocele and rectocele repair in the early s Frequent urinary tract infections: Yes: ~4-5/year with positive culture, most recent was 1 year ago Sexual Dysfunction/Pain: Sexually Active: Yes Pain level with intercourse: Yes Level 1: painful, but able to have penetration at same frequency Level 2: painful and limits frequency Level 3: painful and prevents penetration Pain with: Pelvic exam: No Tampon use: N/A Back, leg, groin and/or abdominal: Yes Test Results: Urodynamics: N Cystoscope: N Urine Tests: Y Bowel Tests: N Bladder Function: Leaks with: coughing, lifting, laughing, sneezing, exercise, with urge, on way to toilet, without warning Number of episodes: daily Severity of leakage: drops, wet underwear and wet outerwear Pain or burning with urination:sometimes Difficulty starting urine stream: sometimes Strain to empty bladder: sometimes Feel unable to fully empty bladder: sometimes Have a feeling of pelvic heaviness, pressure or falling out: sometimes Have pain with a full bladder: No Have urgency of urination: Yes Pad use and Type (per day): pad, 2-3/day # daytime voids: 5-6 # episodes of nocturia: 2-3 Bowel Dysfunction: Frequency of bowel movements: ranges from 2/day to every time she urinates will pass some stool Consistency of stool: normal, soft and pellets Currently strain to void: Yes Include fiber in diet: Yes Take laxatives/enema regularly: No Have pain with bowel movements:sometimes Have a strong urge to move bowels:sometimes History of Constipation: Yes Have diarrhea often: Yes Ignore the urge to defecate: No Feel you have not completely emptied your bowels at the end of a BM: Yes Do you have to push on the vagina or rectum to have or complete a BM:No Fecal incontinence: Y gas, liquid, formed stool Fluid Intake: 8 glasses per day: water 2 caffeinated beverages: coffee 0 Alcoholic beverages: Outcome Measure: Incontinence Severity Index (YOUSIF): 8 Social History and Personal Factors affecting Plan of Care: currently not working as much, notes difficulty with memory, 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 POSTURE: Good spinal and pelvic alignment STRENGTH: lower extremity grossly 5/5 Patient gives verbal consent to external and internal exam. External Exam: Introitus: open at rest, loose, slightly asymmetric, atrophic signs, perineal scar into rectum Introitus: perineal descent with cough Pelvic Floor Contraction: mild levator ani activity with perineal body elevation, with inhalation, abdominal and LE/gluteal overflow, decreased overflow with cues Valsalva: mild, moderate pelvic floor excursion with signs of anterior and posterior laxity Palpation: Non-tender to pelvic clock Internal Exam: Levator ani muscle strength: 3:00 3/5, 6:00 3/5, and 9:00 3/5, derecruitment to baseline, with inhalation, LE, gluteal and abdominal overflow, decreased overflow with cues Levator ani muscle tone: 2/5, diffuse tenderness Hold Time: 5 seconds, # of reps: 4 Valsalva: mild, moderate pelvic floor excursion with signs of anterior and posterior laxity Rectal Exam: External anal sphincter: strength: 2/5, tone: 2/5, hold time: 5 seconds, anterior thinning or rectalsphincter, Valsalva: mild to moderate pelvic floor excursion, without muscle contraction SEMG: with internal electrode in supine: deferred Resting Rate: uV Quick flicks: uV x reps Long Hold: uV x seconds x reps Assessment: These findings are consistent with underactive pelvic floor muscles with muscle weakness, anal incontinence and mixed urinary incontinence. Patient performs a weak voluntary pelvic floor muscle contraction with voluntary relaxation. Decreased rectal sphincter muscle strength and tone with sgns of sphincter defect. Patient presents with impaired pelvic floor muscle strength, endurance and motor control. Patient would benefit from pelvic floor muscle training, awareness of habits, management of stool consistency, SEMG, NMEs and HEP. Clinical Presentation: Stable Evolving Unstable X Notes: moderate Goals: Short term goals (4 weeks) 1. Patient to be indep in the performance of a home program of pelvic floor muscle exercises on a daily basis. 2. Patient will demonstrate an increase in pelvic floor muscle endurance from 4 to 20 repetitions of5 seconds hold. 3. Patient to complete SEMG evaluation. 4. Patient will demonstrate knowledge of toilet positioning and techniques. Goals: continuous churn buttermaker goals (3 months) 1. Patient to be independent with ongoing self management. 2. Patient will have decreased number of episodes of UI by 25%. 3. ADL???s not limited by UI, urgency or frequency. 4. Patient will have decreased episodes of FI by 25%. Frequency: 1 time in 2 weeks for 6 sessions Plan of care: therapeutic exercise, pelvic floor muscle exercises, SEMG, STM/MFR, stretching, patient/family education, home exercise program, relaxation/downtraining, NMEs Informed Consent: The patient consented to the physical therapy evaluation. The patient agrees to and understands the physical therapy treatment plan and goals. Interventions completed today: Initial evaluation, patient education and home exercise program consisting of: PT treatment of muscle weakness with FI and UI, toilet positioning and techniques including manual splinting, diaphragmatic breathing for relaxation/downtraining, diaphragmatic breathing coordinated with pelvic floor muscleexercise, discussion on intra abdominal pressure and the impact on pelvic floor and UI/FI and preventative, and pelvic floor muscle exercises: LH 5 seconds, rest 10 seconds with full relaxation, x ~10-20 reps to fatigue, 2 sessions/day in supine Total Treatment time: 55 minutes: eval moderate, neuro re-ed Total Timed Code Treatment: 16 minutes [facility] PT documented in this encounter Plan of Treatment Upcoming Encounters Date Type Specialty Care Team Description 11/24/2021 Office Visit Neurology Gregg Lacy MD [place], [place] [address] (Wo rk) 04/06/2022 Appointment Radiology 04/06/2022 Office Visit Orthopaedics Wally Rouse MD [facility] ORTHOPAEDIC SURG [place], [place] [address] (Wo rk) Scheduled Referrals Name Type Priority Associated Diagnoses Order S chedule Referral to Outpatient Referral Routine Full incontinence of Ordered: Physical Therapy feces 07/02/2018 documented as of this encounter Visit Diagnoses Diagnosis Disorder of muscle, ligament, and fascia Unspecified disorder of muscle, ligament , and fascia Urinary and fecal incontinence Unspecified urinary incontinence documented in this encounter Care Teams Furnace Repair Mechanic Relationship Specialty Start Date End Date Ekaterina Omer MD PCP - General General Internal Medicine 08/23/[address] [place] [id number] documented as of this encounter
--- OUTSIDE RECORDS SUMMARY | 2021-10-13 15:52 | XMS_ITS | Encounter Summary ---
:1950 Author Organization [facility] [place] [address] Care Team Providers Name Role Phone Ekaterina Omer MD Primary Care Provider Encounter Details Date Type Department Care Team Description 08/26/2018 Office Visit Neurology at [facility] Sofia, Debbie Mild cognitive [facility] L, MANAGER [employer] [place] [address] [facility] [phone] [place], [place] [address] Social History Tobacco Use Types [...] Sign Reading Time Taken Comments Blood Pressure 131/67 08/26/2018 10:02 AM EDT Pulse 69 08/26/2018 10:02 AM EDT Temperature - - Respiratory Rate - - Oxygen Saturation - - Inhaled Oxygen Concentration - - Weight 104.8 kg (231 lb) 08/26/2018 10:02 AM EDT Height 160 cm (5' 3) 08/26/2018 10:02 AM EDT reported Body Mass Index 40.92 08/26/2018 10:02 AM EDT documented in this encounter Progress Notes Debbie Black APRN - 08/26/2018 10:00 AM EDT MEMORY CLINIC FOLLOW-UP Patient presents with her . Interval History: Denies any changes over the past week. thought she did pretty well yesterday. 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 Imagin08/26/18 PET brain: prelim: no evidence for a neurodegenerative process Impression: Mrs. Cummings is a 68 year old woman who presents in follow-up to review her PET scan results. Her PET scan today showed no evidence for a neurodegenerative process. Informed Mrs. Cummings that she has mild cognitive impairment. This can progress to a dementia process, but it does not always do that. Educatedon importance of social and physical activity as well as healthy diet. Emphasized the importance of keeping blood pressure and blood sugar under control. This 15 minute visit was a counseling visit as documented above. documented in this encounter Plan of Treatment Upcoming Encounters Date Type Specialty Care Team Description 11/24/2021 Office Visit Neurology Gregg Lacy MD [place], [place] [address] (Wo rk) 04/06/2022 Appointment Radiology 04/06/2022 Office Visit Orthopaedics Wally Rouse MD [facility] ORTHOPAEDIC SURG [place], [place] [address] (Wo rk) documented as of this encounter Visit Diagnoses Diagnosis Mild cognitive impairment Mild cognitive impairment, so stated documented in this encounter Care Teams Porcelain Slusher Relationship Specialty Start Date End Date Ekaterina Omer MD PCP - General General Internal Medicine 08/23/18 [address] [place] [address] documented as of this encounter
--- OUTSIDE RECORDS SUMMARY | 2021-10-13 15:52 | XMS_ITS | Encounter Summary ---
:1950 Author Organization [facility] [place] [address] Care Team Providers Name Role Phone Ekaterina Omer MD Primary Care Provider Encounter Details Date Type Department Care Team Description 06/19/2019 Telephone [place] [facility] [place]iley Hermosillo, [facility] [place] [address] [place] [address] [phone] (Wo rk) Social History Tobacco Use Types Packs/Day Years Used Date Former Smoker Cigarettes 1 10 Quit: 05/10/18 73 Smokeless Tobacco: Never Used Alcohol Use Standard Drinks/Week Comments No 0 (1 standard drink = 0.6 oz pure alcoho l) Sex Assigned at Date Recorded Female 01/18/2021 7:28 AM EST documented as of this encounter Miscellaneous Notes Telephone Encounter - Mel Arora RN - 06/20/2019 10:57 AM EDT Called and spoke with Kiya and and relayed Hailey's message as follows: It sounds like the hospitals she went to did everything that was necessary (CT/MRI). ??If she could call the facilities that she went to and have both the radiology images as well as the radiology reports/medical records from these visits sent to [facility] that would be great. Nothing more to do for now. ??We can discuss everything at our phone visit. ??When you call her withthe above information, can you let her know that that 06/26 appointment with me will need to be moved, as I will be working in the hospital at that time? Our schedulers are aware and should be reaching out soon to reschedule that appointment. Kiya was agreeable to this plan. Telephone Encounter - Mel Arora RN - 06/20/2019 10:57 AM EDT ----- Message from Gracia Estrada RN sent at 06/18/2019 1:50 PM EDT ----- Regarding: FW: Medication Question (not renewal) Contact: ----- Message ----- From: Kiya Cummings Sent: 06/18/2019 1:42 PM EDT To: [facility] Neurology Nurse Subject: Medication Question (not renewal) Hoang, I know Debbie isn't there anymore but I wanted like you to know a couple of things. In March I had an the worst headache in my life. They diagnosed a migraine. It started as I was violently vomiting. I have had these before but no way as severe as this. On June 14, 2019, I tripped outside and hit the front of my head and then the back of my head real hard. I didn't feel to bad so I went for a walk with my . As we were walking I asked my husbandhow long the yellow house had been there? He looked up the road and saw a yellow house and said it had been there for many years. As we neared his yellow house I told him that was not the house I was talking about. It was way back on the other side of the road. In the end there was not a house where Itold him I had seen it. This has never happened before. Very scary. I have an appointment with you on 06/27/2019 and thought you might like to tkow this in advance. Thank you. Kiya Cummings Telephone Encounter - Lissette Berry - 06/19/2019 4:27 PM EDT Lakesha Hermosillo APRN has requested that the Currently Scheduled Neurology visit be rescheduled into a virtual visit. If patient agrees to this virtual visit after answering technology assessment questions, please add note to this encounter documenting agreement and cancel and reschedule appointment as noted below. * Change Length of Visit to match currently scheduled visit length First Preference: Telephone (TOV)-Needs to be on a different day. Provider not available that day. Second Preference: N/A If a Telephone Office Visit is scheduled, please advise patient that they should be hearing from someone in the Neurology department a day prior to their appointment to review some clinical informationin preparation for their visit with the provider the following day and to remove any filter for receiving calls from blocked numbers. If patient declines Telehealth appointment: - Cancel appointment - Document patient declined in this encounter - Sign encounter and forward to Provider listed above documented in this encounter Plan of Treatment Upcoming Encounters Date Type Specialty Care Team Description 11/24/2021 Office Visit Neurology Gregg Lacy MD [place], [place] [address] (Wo rk) 04/06/2022 Appointment Radiology 04/06/2022 Office Visit Orthopaedics Wally Rouse MD [facility] ORTHOPAEDIC SURG [place], [place] [address] (Wo rk) documented as of this encounter Visit Diagnoses Not on filedocumented in this encounter Care Teams Wharf Tender Head Relationship Specialty Start Date End Date Ekaterina Omer MD PCP - General General Internal Medicine 08/23/18 [address] [place] [address] documented as of this encounter
--- OUTSIDE RECORDS SUMMARY | 2021-10-13 15:52 | XMS_ITS | Encounter Summary ---
:1950 Author Organization [facility] [place] [address] Care Team Providers Name Role Phone Ekaterina Omer MD Primary Care Provider Encounter Details Date Type Department Care Team Description 09/10/2020 Telephone [place] [facility] [address] Social History Tobacco Use Types Packs/Day Years Used Date Former Smoker Cigarettes 1 10 Quit: 05/10/18 73 Smokeless Tobacco: Never Used Alcohol Use Standard Drinks/Week Comments No 0 (1 standard drink = 0.6 oz pure alcoho l) Sex Assigned at Date Recorded Female 01/18/2021 7:28 AM EST documented as of this encounter Miscellaneous Notes Telephone Encounter - Payton Rawls MSW - 09/10/2020 4:47 PM EDT Spoke with per Claudia Cedeno, [employer] healthcare project manager, as Mrs. Cummings is still admitted to [facility] dealing with fractured elbow and difficult pain. Updated that physician has reviewed case and is working on clinic time but no indicated for transfer. concerned about caring for her at home has multiple levels of stairs and feels this will be an issue. Briefly discussed that he will meet with case management at [facility] but she will not likely qualify for SNF even if she proceeds with surgery. Wished him well and he knows he can call back. PLAN: Patient safe at outside hospital with family concerned about managing pain and her needs at home. Knows they will be contacted for clinic appt with physician next week for further treatment planning. documented in this encounter Plan of Treatment Upcoming Encounters Date Type Specialty Care Team Description 11/24/2021 Office Visit Neurology Gregg Lacy MD [place], [place] [address] (Wo rk) 04/06/2022 Appointment Radiology 04/06/2022 Office Visit Orthopaedics Wally Rouse MD [facility] ORTHOPAEDIC SURG [place], [place] [address] (Wo rk) documented as of this encounter Visit Diagnoses Not on filedocumented in this encounter Care Teams Quality Control Assessor Relationship Specialty Start Date End Date Ekaterina Omer MD PCP - General General Internal Medicine 08/23/18 [address] [place] [address] documented as of this encounter
--- OUTSIDE RECORDS SUMMARY | 2021-10-13 15:52 | XMS_ITS | Encounter Summary ---
:1950 Author Organization [facility] [place] [address] Care Team Providers Name Role Phone Ekaterina Omer MD Primary Care Provider Reason for Visit Reason Comments Pre-op Exam Encounter Details Date Type Department Care Team Description 09/08/2020 Office Visit Obstetrics and Saida Mistry, Full incon tinence of Gynecology at [facility] PROFESSIONAL BASS FISHER feces [facility] [address] [place], [place], [place] [address] [phone] Social History Tobacco Use Types Packs/Day Years [...] Sign Reading Time Taken Comments Blood Pressure 148/59 09/08/2020 2:08 PM EDT Pulse 62 09/08/2020 2:08 PM EDT Temperature 36.3 ??C (97.3 ??F) 09/08/2020 2:08 PM EDT Respiratory Rate 16 09/08/2020 2:08 PM EDT Oxygen Saturation 96% 09/08/2020 2:08 PM EDT Inhaled Oxygen Concentration - - Weight 111.1 kg (245 lb) 09/08/2020 2:08 PM EDT Height 160.7 cm (5' 3.25) 09/08/2020 2:08 PM EDT Body Mass Index 43.06 09/08/2020 2:08 PM EDT documented in this encounter Progress Notes Saida Mistry, PROFESSIONAL BASS FISHER - 09/08/2020 2:30 PM EDT Date of Visit: 09/08/2020 Planned Surgery Date: 09-29-20 and 10-06-20 Planned Procedure: Implantation of sacral neurostimulator phases 1 and 2 Indications/Pre-op Diagnosis: Dual fecal and urinary urge incontinence HISTORY OF PRESENT ILLNESS: Ms. Cumminsg is a 70 y.o. para 2 woman who presents for her preoperative examination. Patient presents with a history of symptomatic dual incontinence. She desires surgical intervention. Please see prior encounter notes for more detail. She is on Aricept for mild cognitive impairment as well as Eliquis for her history of pulmonary embolism. Today Rebecca has brought a bladder diary, with variable details. She also marked bowel movements for the 3 days, showing 4 stools on the first day, 5 on the second, and 3 on the third. No details for consistency or incontinent events. The MEDIA section of this chart also contains a stool diary using a different form. REVIEW OF SYMPTOMS/FUNCTIONAL STATUS: Chest pain: No [...] blood clots?: she has had PE and is on Eliquis for many years from Sexually active?: yes Last PAP smear: S/p hyst Past anesthesia problems?: no Past Medical History: Diagnosis Date ??? Allergy 1980 sulfur and 2013 sipro ??? Asthma 1978 [...] DIAGNOSTIC performed by Caleb Tineo MD at [facility] ENDOSCOPY ??? PRO EXCISE EXCESS SKIN TISSUE, ABDOMEN N/A 03/06/2014 ABDOMINOPLASTY performed by Marcos Vance MD at [facility] MAIN OR ??? PRO UNLISTED PROCEDURE, MUSCULOSKELETAL SYSTEM, GENERAL both shouloders rotater cuff ??? VASCULAR SURGERY 1989 varicose veins both legs Social History Socioeconomic History ??? Marital status: [...] Social History Narrative Ms. Cummings lives in [place], [place] with her . 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 She has prior history of radon exposure [...] Week: ??? Minutes of Exercise per Session: Family History Problem Relation Age of Onset ??? Alcohol Use Disorder Sister ??? Thrombophilia Mother ??? Coronary Artery Disease Mother ??? High Blood Pressure Mother ??? Cervical Cancer Mother ??? Parkinsonism Father ??? Stomach Cancer Brother ??? Obesity Brother ??? Diabetes Brother ??? Myocardial Infarction Brother ??? Obesity Sister ??? Gallbladder Disease Son Gallstones s/p cholecystectomy Allergies Allergen Reactions ??? Sulfa (Sulfonamide Antibiotics) Hives ??? Ciprofloxacin ??? Macrodantin [Nitrofurantoin Macrocrystal] ??? Pramipexole Outpatient Medications Marked as Taking for the 09/08/20 encounter (Office Visit) with Saida Mistry APRN Medication Sig Dispense Refill ??? acetaminophen (Tylenol) 500 mg Tablet Take 1,000 mg by mouth every 6 hours as needed for Pain. ??? donepeziL (Aricept) 10 mg Tablet ??? [...] mg by mouth 2 times daily. 1 Blood pressure 148/59, pulse 62, temperature 36.3 ??C (97.3 ??F), temperature source Temporal, resp.rate 16, height 160.7 cm (5' 3.25), weight 111.1 kg (245 lb), SpO2 96 %. A harmonic analyst is present for the examination not applicable EXAM: General: alert/oriented x 3, NAD, cooperative ENT: pharynx clear, Mallampati III, Partial lower plate Neck: No lymphadenopathy, no thyromegaly Chest: CTA bilaterally COR: 78 regular Abdomen: obese, soft, nontender Extremities: no calf tenderness, no swelling Opioid Risk Tool--not done IMPRESSION: Rebecca Cummings is a 70 y.o. woman with dual incontinence who desires surgical intervention. PLAN: ??? We will proceed with the above procedures on 09-29-20 and 10-06-20. ??? Anesthesia preference: per anesthesia and patient. ??? Pre- and post-op patient education sheets are printed, personalized, and reviewed with her in detail during this visit.Chlorhexidine packets and instructions given and discussed in detail. ? Per Dr. Jones: In view of her hx and co-morbid conditions, we will stop the Eliquis 3 days pre-op,then give her 5 days of Loxenox 60mg SC once daily prophlaxis, to be taken once daily from POD#1 after stage 1 (09-30-20) to day before stage 2 (10-05-20). Then we'll resume her Eliquis. ADDENDUM 09-10-20: I have spoken with Lashonda at Dr. Omer's office (ph [phone]) about the anticoagulation plan above, with Lovenox starting on 09-30-20 for 5 days ending 10-05-20. Lashonda confirms her office can manage that. I will call rebecca and tell her to expect contact from them. She should take her last dose of Eliquis on 09-26-20 and resume it on 10-07-20. This note is being faxed to Lashonda at [phone]. ??? New set of bladder and bowel diary forms for prior to and during the test phase are given, marked carefully and discussed in detail. New hat and beaker also given. ??? (x) Medications and herbal preparations reviewed Discussed: (x) Discontinuation of all herbal preparations, vitamin E 7-10 days preop (X) We will contact her PCP about coordinating the Lovenox plan, [place]. (x) Hormones: na ?? (x) Discontinue Solid foods at midnight ?? (x) Clear liquids (water, apple juice, ira jordin, or black coffee) may be consumed until 2 hoursprior to scheduled procedure. PROCEDURE CONSENT: ?? (0) Needs to be reviewed and signed on the day of surgery Saida Mistry APRN Division of Female Pelvic Medicine and Reconstructive Surgery documented in this encounter Plan of Treatment Upcoming Encounters Date Type Specialty Care Team Description 11/24/2021 Office Visit Neurology Gregg Lacy MD [place], [place] [address] (Wo rk) 04/06/2022 Appointment Radiology 04/06/2022 Office Visit Orthopaedics Wally Rouse MD [facility] ORTHOPAEDIC SURG [place], [place] [address] (Wo rk) documented as of this encounter Visit Diagnoses Diagnosis Full incontinence of feces documented in this encounter Care Teams Leather Leveler Relationship Specialty Start Date End Date Ekaterina Omer MD PCP - General General Internal Medicine 08/23/18 [address] [place] [address] documented as of this encounter
--- OUTSIDE RECORDS SUMMARY | 2021-10-13 15:52 | XMS_ITS | Encounter Summary ---
:1950 Author Organization [facility] [address] Care Team Providers Name Role Phone Ekaterina Omer MD Primary Care Provider Reason for Referral Diagnostic Test (Routine) - Closed Specialty Diagnoses / Procedures Referred By Contact Refer red To Contact Radiology Diagnoses Memory impairment Debbie Black, [facility] Rad Nuclear Med Procedures PET CT Brain Metabolic [place] [address] [facility] [place] [address] Referral ID Status Reason Start Date Expiration Date Visits V isits Requested Authorized [id number] Closed Specialty 08/19/2018 08/19/2019 1 1 Service Requested Reason for Visit Diagnostic Test (Routine) - Closed Specialty Diagnoses / Procedures Referred By Contact Refer red To Contact Radiology Diagnoses Memory impairment Debbie Black, [facility] Rad Nuclear Med Procedures PET CT Brain Metabolic [place] [address] [facility] [place] [place] [address] Referral ID Status Reason Start Date Expiration Date Visits V isits Requested Authorized [id number] Closed Specialty 08/19/2018 08/19/2019 1 1 Service Requested Encounter Details Date Type Department Care Team Description 08/26/2018 Hospital Encounter Nuclear Medicine at [facility] daily Memory impairment Jessica Lu L, SORT SUPERVISOR [facility] [address] [place], [facility] [address] [place] [address] [phone] Social History Tobacco Use Types Packs/Day Years [...] Dispensed Refills Start Date End Date buPROPion (WELLBUTRIN Take 1 tablet by 30 tablet 3 08/08/19 19 XL) 300 mg Tablet mouth every morning. Extended Release 24 hr levothyroxine Take 100 mcg by 0 (SYNTHROID) 100 mcg mouth daily. Tablet multivitamin (THERAGRAN) Take 1 tablet by 0 Tablet mouth daily. magnesium 250 mg Tablet Take 500 mg by mouth 0 daily. cholecalciferol, Vitamin Take 1 capsule by 0 D3, 50 mcg (2,000 unit) mouth daily. Capsule ascorbic acid, vitamin Take 500 mg by mouth 0 C, (VITAMIN C) 500 mg daily. Tablet metFORMIN (GLUCOPHAGE) Take 2 tablets by 120 tablet 3 201801/27/2019 500 mg mouth 2 times daily TabletIndications: (with meals). Impaired fasting glucose triamcinolone (KENALOG) Apply a very thin 30 g 0 08/1901/08/2019 0.1 % film to irritated OintmentIndications: skin twice a day if Lichen simplex chronicus needed for itching of vulva D-MANNOSE ORAL Take 1,500 mg by 0 04/0 10/2019 mouth daily. vit Take 1 capsule by 0 06/17/ 020 C,B-Af-fjiat-lutein-zeax mouth daily. an (PRESERVISION AREDS-2) [phone] sq-nfwo-lr-mg Capsule venlafaxine (EFFEXOR-XR) Take 150 mg by mouth 0 0 11/13/2017 01/27/2019 150 mg Capsule, Sust. daily. Release 24 hr venlafaxine (EFFEXOR-XR) Take 75 mg by mouth 0 01/27/2019 75 mg Capsule, Sust. daily. Release 24 hr ELIQUIS 2.5 mg Tablet Take 2.5 mg by mouth 1 03/03/201711/08/2020 2 times daily. documented as of this encounter Plan of Treatment Upcoming Encounters Date Type Specialty Care Team Description 11/24/2021 Office Visit Neurology Gregg Lacy MD [place], [place] [address] (Wo rk) 04/06/2022 Appointment Radiology 04/06/2022 Office Visit Orthopaedics Wally Rouse MD [facility] ORTHOPAEDIC SURG [place], [place] [address] (Wo rk) documented as of this encounter Procedures Procedure Name Priority Date/Time Associated Diagnosis Comme nts NM PET CT METABOLIC Routine 08/26/2018 8:14 AM Memory impairme nt Results for this BRAIN EDT procedure are i n the results section. documented in this encounter Results PET CT Brain Metabolic [...] interpretation and agree with the findings, Suleman eWber at 08/26/2018 10:41 AM Thank you for letting us participate in the care of this patient. For questions regarding this report, please contact e number below. ? Narrative 08/26/2018 10:41 AM EDT EXAMINATION: PET CT BRAIN METABOLIC CLINICAL HISTORY: >6 mos memory impairme nt progressing; ?alzheimer's TECHNIQUE: Procedure: Following IV injec tion of 73-efljzh-6-deoxyglucose (FDG) and a standard uptake period of [...] TECHNIQUE: Procedure: Following IV injec tion of 31-xzfloo-8-deoxyglucose (FDG) and a standard uptake period of [...] please contact e number below. Debbie Black SORT SUPERVISOR IMG PET ORDERABLES documented in this encounter Visit Diagnoses Diagnosis Memory impairment Memory loss documented in this encounter Care Teams Automotive Specialty Technician Relationship Specialty Start Date End Date Ekaterina Omer MD PCP - General General Internal Medicine 08/23/18 [address] [place] [address] documented as of this encounter
--- OUTSIDE RECORDS SUMMARY | 2021-10-13 15:52 | XMS_ITS | Encounter Summary ---
:1950 Author Organization [facility] [place] [address] Care Team Providers Name Role Phone Ekaterina Omer MD Primary Care Provider Encounter Details Date Type Department Care Team Description 11/27/2019 Office Visit Neurology at [facility] Hailey Hermosillo, Memory impairment; [facility] DIRECTOR OF CASEWORK DEPARTMENT [place] [address] [place], [place] [address] Social History Tobacco Use Types [...] Sign Reading Time Taken Comments Blood Pressure 127/58 11/27/2019 8:35 AM EDT Pulse 57 11/27/2019 8:35 AM EDT Temperature - - Respiratory Rate - - Oxygen Saturation - - Inhaled Oxygen Concentration - - Weight 102.5 kg (226 lb) 11/27/2019 8:35 AM EDT Height 162.6 cm (5' 4.02) 11/27/2019 8:35 AM EDT Body Mass Index 38.77 11/27/2019 8:35 AM EDT documented in this encounter Patient Instructions Patient InstructionsHailey Hermosillo APRN - 11/27/2019 9:00 AM EDT -Your memory testing today showed a slight decline from last year but not a terrible decline. -You are still doing well, able to cook for yourself, etc. which is fantastic! -We looked at your brain pictures today and saw the white matter disease on it, which makes me suspect that you may have a vascular dementia. -Continue your donepezil but try to switch it to the morning so you don't have weird dreams at nighttime. -Please consider counseling for both you and Nabil, as memory problems are tough and painful and I think having someone to talk to would be a great thing. -Also consider going back to occupational therapy with a different occupational therapist. They can help you develop tricks and workarounds for your memory problems. -Keep trying to exercise and follow the Mediterranean diet. These are both good for your memory. -You can follow up with your PCP in the future if you would like. Otherwise, come back and see Dr. Elam in 6 months, sooner if needed. -Call for anything before then. -You are a delight and I'm so glad to have met you! documented in this encounter Progress Notes Hailey Hermosillo APRN - 11/27/2019 9:00 AM EDT [facility] OUTPATIENT FOLLOW UP VISIT NOTE Patient Active Problem List Diagnosis ??? Mild cognitive impairment ??? Morbid obesity [...] incontinence ??? S/P panniculectomy ??? Rectus diastasis 1950 PCP - Ekaterina Omer MD CUT OFF SAWYER - Ekaterina Omer Past Medical History: Diagnosis Date ??? Allergy [...] ??? Varicose veins of left lower extremities Current Outpatient Medications on File Prior to Visit Medication Sig Dispense Refill ??? donepeziL (Aricept) [...] mg by mouth 2 times daily. 1 No current facility-administered medications on file prior to visit. I had a follow-up visit today with Kiya Cummings for her memory impairment. She was accompanied today by her Nabil. In the interim since I last visited with Kiya, her PCP started her on donepezil. Kiya reports thatit initially seemed to help her memory for a while but she does not feel like it is helping anymore.She is currently taking 10 mg nightly. She is not having any diarrhea, dizziness, or sleepiness but is having vivid dreams at nighttime. She feels that her memory is slightly better overall. Nabil feels that a lot of her memory issues are simply the result of natural aging and he feels that oftentimes, visits with medical providers are unhelpful and only leave Kiya feeling discouraged and hopeless in regards to her memory problems. Kiya is still cooking without any issues but did forget to put cinnamon inside her apple pie recently. Her medications are now in blister packs because she was having difficulties managing them all herself. Nabil has taken over the bills. She did have an episode somewhat recently where she was trying to write out a bill for their business and incorrectly wrote the bill 5 different times before writing it correctly (she was making errors like adding 3 months of interest instead of 2). She is driving just locally and is not having any issues getting lost or having close calls. In terms of her hallucinations, she had one episode where she was looking at a painting of a landscape and the sun in the painting started going in and out of the clouds. She also had an episode where she got up in the middle the night and saw a spider on the floor that was not really there. She has not had any falls. She continues to have trouble both falling asleep and staying asleep. Shewears BiPAP and oxygen at nighttime. She does nap during the daytime as well. She has no witnessed sleep disturbances but Nabil notes that she moves her feet around a lot at nighttime but has for manyyears. Kiya feels that her mood is improved since starting the donepezil. However, she reports that her personality is a lot different than I used to be-I do not take any crap now. She does voice some sadness over the fact that her daughter and grandchildren will not be able to come from [place] to visit [place] this year, which is quite a change for them. Kiya and I meet privately for a few minutes before Nabil comes in. Kiya confides in me that Nabil downplays her memory issues and she feels frustrated and hurt by the fact that he does not take hermemory issues more seriously. Vitals: Patient Vitals for the past 24 hrs: Pulse BP 11/27/19 0835 57 127/58 On exam, Kiya is well-kempt and put together. She is dressed appropriately for the weather. Her speech is fluent and without error or dysarthria. Her gait is stable and narrow based. She does not haveany rigidity or cogwheeling in her extremities. I do not note a tremor. She becomes a bit cheerful when discussing how her daughter will not be able to visit from [place]. Repeat MoCA today in the clinic: Deficits in rectangle copying, animal naming (called the hippopotamus a rhinoceros), serial 7 subtraction, phonemic fluency, abstraction, and delayed recall (recalled 3 of 5 words without any impairment and 2 of 5 words with multiple choice cueing). Impression: Kiya Cummings is a 69-year-old lady here for further evaluation and management of her memory issues. She currently meets diagnostic criteria for dementia, as her IADLs are impaired. Her PET scan was negative but her MRI shows a severe amount of white matter disease. I went over Kiya's MRI images with both Kiya and Nabil today in the clinic. I think the likely etiology of her dementia is vascular. Shehad a preliminary neuropsychological evaluation without testing and it was suggested that Kiya may possibly have a mixed vascular/Lewy body dementia. While this is not out of the realm of possibility,she currently does not meet diagnostic criteria for Lewy Body dementia at this time (must have dementia+ 2 of the following: cognitive fluctuations, visual hallucinations, parkinsonism, and a REM sleepdisorder). She seems to have had some benefit from the donepezil and she is tolerating it well. She should continue on donepezil 10 mg daily. I have advised her to switch her donepezil dosing from nighttime to morning to try to relieve her vivid dreams. I am still hopeful that she will have formal neuropsychological testing completed at some point soon. I do note that Kiya has a very strong family history of Parkinson's but she was not parkinsonian at all on exam today. Will continue to monitor. I encouraged Kiya to continue to work on her vascular risk factors, including keeping her blood pressure below 130/80, trying to engage in an exercise regimen, and following the Mediterranean diet (handout given to her about this diet today). I also gave her a copy of the [facility] Memory Handbook. Kiya's mood should be closely monitored going forward. I encouraged both Kiya and Nabil to visit a counselor either together or separately. I also encouraged Kiya to consider occupational therapy for her memory issues. Kiya tells me that she tried occupational therapy once but had a very bad experience with that OT and so is hesitant to try again. Kiya and Nabil know that I will be leaving [facility]. If the visits to Neurology upset her emotionally,she may follow up with her PCP. Otherwise, follow up with Dr. Elam in 6 months, sooner if needed. Hailey Hermosillo DNP, DIRECTOR OF CASEWORK DEPARTMENT Department of Neurology This visit was 92 minutes in duration with greater than half of the visit spent in discussion, education, supportive counseling, and care coordination as represented above. documented in this encounter Plan of Treatment Upcoming Encounters Date Type Specialty Care Team Description 11/24/2021 Office Visit Neurology Gregg Lacy MD [place], [place] [address] (Tulio raymond) 04/06/2022 Appointment Radiology 04/06/2022 Office Visit Orthopaedics Wally Rouse MD [facility] ORTHOPAEDIC SURG [place], [place] [address] (Tulio raymond) documented as of this encounter Visit Diagnoses Diagnosis Memory impairment Memory loss White matter disease Other conditions of brain documented in this encounter Care Teams Traffic Safety Administrator Relationship Specialty Start Date End Date Ekaterina Omer MD PCP - General General Internal Medicine 08/23/18 [address] [place] [address] documented as of this encounter
--- OUTSIDE RECORDS SUMMARY | 2021-10-13 15:52 | XMS_ITS | Encounter Summary ---
:1950 Author Organization [facility] [place] [address] Care Team Providers Name Role Phone Ekaterina Omer MD Primary Care Provider Reason for Visit Reason Onset Date Comments Questions 09/16/2020 Encounter Details Date Type Department Care Team Description 09/16/2020 Telephone Orthopaedics at [facility] [place] [address] Social History Tobacco Use Types Packs/Day Years Used Date Former Smoker Cigarettes 1 10 Quit: 05/10/18 73 Smokeless Tobacco: Never Used Alcohol Use Standard Drinks/Week Comments No 0 (1 standard drink = 0.6 oz pure alcoho l) Sex Assigned at Date Recorded Female 01/18/2021 7:28 AM EST documented as of this encounter Miscellaneous Notes Telephone Encounter - Stef Sanchez - 09/16/2020 9:40 AM EDT Triage Note Subjective: pt's daughter calls requesting home health referral be sent to [facility] Plan: printed and faxed to [phone] as requested. Patient/Responsible libertarian voices an understanding of advice? yes Patient/Responsible libertarian intends to comply with action/disposition: yes documented in this encounter Plan of Treatment Upcoming Encounters Date Type Specialty Care Team Description 11/24/2021 Office Visit Neurology Gregg Lacy MD [place], [place] [address] (Wo rk) 04/06/2022 Appointment Radiology 04/06/2022 Office Visit Orthopaedics Wally Rouse MD [facility] ORTHOPAEDIC SURG [place], [place] [address] (Wo rk) documented as of this encounter Visit Diagnoses Not on filedocumented in this encounter Care Teams Outplacement Consultant Relationship Specialty Start Date End Date Ekaterina Omer MD PCP - General General Internal Medicine 08/23/18 [address] [place] [address] documented as of this encounter
--- OUTSIDE RECORDS SUMMARY | 2021-10-13 15:52 | XMS_ITS | Encounter Summary ---
:1950 Author Organization [place] [address] Care Team Providers Name Role Phone Ekaterina Omer MD Primary Care Provider Encounter Details Date Type Department Care Team Description 12/31/2019 TH Visit Psychiatry and Lenny Amos, PhD PSYCHIATRY DEPT. [facility] [place] [id number] Depression, unspecified depression type; (TeleHealth[facility]; [facility] [place]ive [place] [id number] Social History Tobacco Use Types Packs/Day Years Used Date Former Smoker Cigarettes 1 10 Quit: 05/10/18 73 Smokeless Tobacco: Never Used Alcohol Use Standard Drinks/Week Comments No 0 (1 standard drink = 0.6 oz pure alcoho l) Sex Assigned at Date Recorded Female 01/18/2021 7:28 AM EST documented as of this encounter Progress Notes Lenny Amos, PhD - 12/31/2019 4:00 PM EDT CONFIDENTIAL NEUROPSYCHOLOGICAL EVALUATION FEEDBACK NOTE Patient Name: Kiya Trevino#: [id number] Date of : 1950 Age: 69 years Sex: Female Referred By: Debbie Black APRN Date of Evaluation: 12/03/2019 Date of Feedback: 12/31/2019 Ms. Kiya Cummings participated in a telephone feedback session to discuss the results of her 12/03/2019 [facility] neuropsychological evaluation. She was located at her home in [place]. A total of 18 minutes were spent in supportive psychotherapy addressing cognitive concerns, test findings, and recommendations. Briefly, Ms. Cummings demonstrated intact cognitive performance across domains. Subtle relative weaknesses were found on tasks of nonverbal reasoning, recall of visual information, cognitive flexibility, receptive language, and phonemic verbal fluency, though these skills were within normal limits. On questionnaire measures, she endorsed significant concerns with executive functioning in everyday life. The current results did not support the presence of a neurocognitive disorder or degenerative process. However, on interview, Ms. Cummings and members of her family reported increased difficulty with activities of daily living that has progressively worsened over the past five years to the point where sheis no longer working and rarely drives. While the etiology of her reported cognitive changes is unclear, her most recent MRI was significant for white matter changes in several areas of the brain, likely indicative of chronic microvascular disease. Other factors that may be contributing to the clinical presentation include variability in sleep, mild depression symptoms (and reported worsening over the past two years), and increased stress. The quiet and structured nature of the testing session may account in part for her experience of greater cognitive problems in daily life. Recommendations provided included: further medical work-up (i.e., comprehensive metabolic panel); continue to monitor cerebrovascular risk factors; discuss options for cognitive medications with prescribing physician; work with therapist to manage emotional distress; consider consultation with sleep sp ecialist; review available resources through [facility]; utilize compensatory strategies for reported cognitive concerns; and return for neuropsychological re-evaluation in 12-18 months. Overall, Ms. Cummings appeared to understand the results and recommendations. She asked several questions, which were addressed by Dr. Sifuentes. She reported that, since the initial evaluation, she has been having increased difficulty with sleep due to racing thoughts. It was suggested that she consider establishing care with a psychotherapist who is trained in cognitive-behavioral therapy. She indicated that she would research providers in her area. She was encouraged to contact our office with additionalquestions or concerns. Thank you for referring Ms. Cummings for neuropsychological evaluation. If you would like additional information, please do not hesitate to contact us at [phone]. The report is available in full in [facility]. Jazmyn Sifuentes, Ph.D. Lenny Amos, Ph.D., ABPP Postdoctoral Fellow in Neuropsychology Board Certified in Clinical Neuropsychology Consulting Managervehicle damage appraiser documented in this encounter Plan of Treatment Upcoming Encounters Date Type Specialty Care Team Description 11/24/2021 Office Visit Neurology Gregg Lacy MD [place], [place] [address] (Wo rk) 04/06/2022 Appointment Radiology 04/06/2022 Office Visit Orthopaedics Wally Rouse MD [facility] ORTHOPAEDIC SURG [place], [place] [address] (Wo rk) documented as of this encounter Visit Diagnoses Diagnosis Depression, unspecified depression type Sleep difficulties Sleep disturbance, unspecified Subjective cognitive impairment documented in this encounter Care Teams Pipeline Construction Inspector Relationship Specialty Start Date End Date Ekaterina Omer MD PCP - General General Internal Medicine 08/23/18 [address] [place] [address] documented as of this encounter
--- OUTSIDE RECORDS SUMMARY | 2021-10-13 15:52 | XMS_ITS | Encounter Summary ---
:1950 Author Organization [facility] [place] [address] Care Team Providers Name Role Phone Ekaterina Omer MD Primary Care Provider Encounter Details Date Type Department Care Team Description 08/12/2018 Telephone Neurology at [facility] Debbie Black, [facility] [place] [address] [facility] [phone] [place], [place] [address] (Wo rk) Social History Tobacco Use Types Packs/Day Years Used Date Former Smoker Cigarettes 1 10 Quit: 05/10/18 73 Smokeless Tobacco: Never Used Alcohol Use Standard Drinks/Week Comments No 0 (1 standard drink = 0.6 oz pure alcoho l) Sex Assigned at Date Recorded Female 01/18/2021 7:28 AM EST documented as of this encounter Miscellaneous Notes Telephone Encounter - Kath Thomas RN - 08/12/2018 1:59 PM EDT Reason for Call: Patient Report: Patient states that she is feeling more frustrated and depressed with the changes that she has noticed. She states that she is crying a lot. She states that she mentioned this to her PCP who did not seem concerned with her symptoms. She also mentioned it to her local neurologist, who just told her to find a psychiatrist. Patient states that she has not been able to schedule with psychiatry here at [facility] yet. Encouraged her to see if she can find someone local that might have sooner availability. She will do this. She would like to come back in and see Debbie Black APRN. To discuss her concerns and frustrations. Plan/Intervention/Follow Up - Report forwarded to Debbie Black APRN for review and comment. Pt/caller aware they will be called back with input when available and to call back in the interim if additional questions or change arise before they hear back from this office. Pt/caller agreeable to this plan. Telephone Encounter - Dorina Boone - 08/12/2018 11:01 AM EDT Clinical [place] Message Caller: Nabil Brooke If not Pt / Relation to pt: Call back Number: [phone] Reason for call: Changes in personality & memory Message/information for the nurse: Patient's called to follow-up on the message Kiya sent on 07/20. States that she's getting worse and that there wasn't a plan for next steps. They'd like to come in for an appointment to discuss changes in her personality & memory. Please call patient to discuss and advise of scheduling. Disposition of Call ?? Routine Message sent to the Nurse documented in this encounter Plan of Treatment Upcoming Encounters Date Type Specialty Care Team Description 11/24/2021 Office Visit Neurology Gregg Lacy MD [place], [place] [address] (Wo mandi) 04/06/2022 Appointment Radiology 04/06/2022 Office Visit Orthopaedics Wally Rouse MD [facility] ORTHOPAEDIC SURG [place], [place] [address] (Wo mandi) documented as of this encounter Visit Diagnoses Not on filedocumented in this encounter Care Teams Fabricator Foam Rubber Relationship Specialty Start Date End Date Ekaterina Omer MD PCP - General General Internal Medicine 08/23/18 [address] [place] [address] documented as of this encounter
--- OUTSIDE RECORDS SUMMARY | 2021-10-13 15:52 | XMS_ITS | Encounter Summary ---
:1950 Author Organization [facility] [place] [address] Care Team Providers Name Role Phone Ekaterina Omer MD Primary Care Provider Reason for Visit Reason Onset Date Comments Pre Procedure Call 09/15/2020 Encounter Details Date Type Department Care Team Description 09/15/2020 Telephone Orthopaedics at [facility] Nimco [place] [address] ORTHOPAEDIC SURG [place], [place] [address] (Wo rk) Social History Tobacco Use Types Packs/Day Years Used Date Former Smoker Cigarettes 1 10 Quit: 05/10/18 73 Smokeless Tobacco: Never Used Alcohol Use Standard Drinks/Week Comments No 0 (1 standard drink = 0.6 oz pure alcoho l) Sex Assigned at Date Recorded Female 01/18/2021 7:28 AM EST documented as of this encounter Miscellaneous Notes Telephone Encounter - Nelsy Edgar I - 09/15/2020 3:27 PM EDT Sendy oliveira and her Mom Kiya would like to move forward with having elbow surgery and they werediscussing when you open her up and it looks like she needs a new elbow would you be able to performthat procedure? Plan today at appt discussed for next Sunday to have surgery by Kurt. I transferred the call to Cata Rawls she was not sure about home health and how to go about this for her Mom. Sending to OR schedulers as well documented in this encounter Plan of Treatment Upcoming Encounters Date Type Specialty Care Team Description 11/24/2021 Office Visit Neurology Gregg Lacy MD [place], [place] [address] (Wo rk) 04/06/2022 Appointment Radiology 04/06/2022 Office Visit Orthopaedics Wally Rouse MD [facility] ORTHOPAEDIC SURG [place], [place] [address] (Wo rk) documented as of this encounter Visit Diagnoses Not on filedocumented in this encounter Care Teams Heat And Vent Aircraft Mechanic Relationship Specialty Start Date End Date Ekaterina Omer MD PCP - General General Internal Medicine 08/23/18 [address] [place] [address] documented as of this encounter
--- OUTSIDE RECORDS SUMMARY | 2021-10-13 15:52 | XMS_ITS | Encounter Summary ---
:1950 Author Organization [place] [address] Care Team Providers Name Role Phone Ekaterina Omer MD Primary Care Provider Reason for Visit Diagnostic Test (Routine) - Closed Specialty Diagnoses / Procedures Referred By Contact Refer red To Contact Radiology Diagnoses Memory impairment Debbie Black, [facility] Rad Nuclear Med Procedures PET CT Brain Metabolic BUREAU DIRECTOR [facility] [place] [address] [place] [address] Referral ID Status Reason Start Date Expiration Date Visits V isits Requested Authorized [id number] Closed Specialty 08/19/2018 08/19/2019 1 1 Service Requested Encounter Details Date Type Department Care Team Description 08/26/2018 Hospital Encounter [facility] BUREAU DIRECTOR [facility] [place] [address] HOSPITAL MEDICINE [phone] [place], [place] [address] (Wo rk) Social History Tobacco [...] D-MANNOSE ORAL Take 1,500 mg by 0 10/2019 mouth daily. vit Take 1 capsule by 0 020 C,I-Pd-jdfmn-lutein-zeax mouth daily. an (PRESERVISION AREDS-2) [id number] ev-pdmt-vf-mg Capsule venlafaxine (EFFEXOR-XR) Take 150 mg by [...] 11/24/2021 Office Visit Neurology Gregg Lacy MD [place], [place] [address] (Wo rk) 04/06/2022 Appointment Radiology 04/06/2022 Office Visit Orthopaedics Wally Rouse MD [facility] ORTHOPAEDIC SURG [place], [place] [address] (Wo rk) documented as of this encounter Procedures Procedure Name Priority Date/Time Associated Diagnosis Comme nts NM PET CT METABOLIC Routine 08/26/2018 8:14 AM Memory impairme nt Results for this BRAIN EDT procedure are i n the results section. POCT GLUCOSE Routine 08/26/2018 6:35 AM Results f or this EDT procedure are i n the results section. documented in this encounter Results POCT Glucose (08/26/2018 6:35 AM EDT) athologist Signature POC Glucose 88 65 - 199 [facility] mg/dL [facility] Comment: Supplemental ranges: <140 mg/dL before meals <180 mg/dL all other times of the day Specimen Anatomical Collection Method Collection Time Receive d Time (Source) Location / / Volume Laterality Blood specimen 08/26/2018 6:35 AM 019 6:35 (specimen) EDT AM EDT Debbie Black BUREAU DIRECTOR POINT OF CARE TEST ORDERABLE S Performing Organization Address City/State/ZIP [place] [address] documented in this encounter Visit Diagnoses Not on filedocumented in this encounter Administered Medications Inactive Administered Medications - up to 3 most recent administrations Medication Order MAR Action Action Date Dose Rate Site ALPRAZolam (XANAX) tablet 0.5 mg Given 08/26/2018 7:33 AM EDT 0.5 mg 0.5 mg, Oral, ONCE PRN, 1 dose, Starting on Sun08/26/18 at 0630, Until Sun08/26/18 at 0733, Anxiety, Routine fludeoxyglucose (F-18) FDG injection Given 08/26/2018 6:58 AM ED T 11 mCi Right Arm 11 mCi 11 mCi, Intravenous, ONCE PRN, 1 dose, Starting on Sun08/26/18 at 0658, Until Sun08/26/18 at 0658, Per Protocol, Routine documented in this encounter Care Teams Student Specialist Relationship Specialty Start Date End Date Ekaterina Omer MD PCP - General General Internal Medicine 08/23/18 [address] [place] [address] documented as of this encounter
--- OUTSIDE RECORDS SUMMARY | 2021-10-13 15:52 | XMS_ITS | Encounter Summary ---
:1950 Author Organization [facility] [place] [address] Care Team Providers Name Role Phone None Primary Care Provider Unavailable Reason for Visit Diagnostic Test (Routine) - Closed Specialty Diagnoses / Procedures Referred By Contact Refer red To Contact Radiology Diagnoses Memory impairment Debbie Black, [facility] Rad Mri Procedures MRI [place] [address] [facility] [place] [address] Referral ID Status Reason Start Date Expiration Date Visits V isits Requested Authorized [id number] Closed Specialty 06/25/2018 06/25/2019 1 1 Service Requested Encounter Details Date Type Department Care Team Description 07/05/2018 Hospital Encounter MRI at [facility] Debbie Black, [place] [address] [place], [place] [address] (Wo rk) Social History Tobacco [...] vit Take 1 capsule by 0 020 C,V-Zp-ibmlr-lutein-zeaxa mouth daily. n (PRESERVISION AREDS-2) [phone] zu-jqbh-xy-mg Capsule metFORMIN (GLUCOPHAGE) Take 2 tablets by [...] 11/24/2021 Office Visit Neurology Gregg Lacy MD [place], [place] [address] (Wo rk) 04/06/2022 Appointment Radiology 04/06/2022 Office Visit Orthopaedics Wally Rouse MD [facility] ORTHOPAEDIC SURG [place], [place] [address] (Wo rk) documented as of this encounter [...] please contact e number below. ? Narrative 07/06/2018 10:08 AM [...] For questions regarding this report, please contact [facility] number below. Debbie Black APRN IMG MRI ORDERABLES documented in this encounter Visit Diagnoses Not on filedocumented in this encounter Care Teams Senior Environmental Technician Relationship Specialty Start Date End Date None PCP - General 06/25/18 08/22/18 None documented as of this encounter
--- OUTSIDE RECORDS SUMMARY | 2021-10-13 15:52 | XMS_ITS | Encounter Summary ---
:1950 Author Organization [facility] [place] [address] Care Team Providers Name Role Phone Ekaterina Omer MD Primary Care Provider Encounter Details Date Type Department Care Team Description 09/06/2018 Office Visit Physical Therapy at Alessandra Cabrera Diso rder of muscle, ligament, and fascia; [address] PT Urinary and fecal incontinence [address] [place] [address] PHYSICAL MEDICINE [phone] & [place] [address] Social History Tobacco Use Types Packs/Day Years Used Date Former Smoker Cigarettes 1 10 Quit: 05/10/18 73 Smokeless Tobacco: Never Used Alcohol Use Standard Drinks/Week Comments No 0 (1 standard drink = 0.6 oz pure alcoho l) Sex Assigned at Date Recorded Female 01/18/2021 7:28 AM EST documented as of this encounter Progress Notes Alessandra Cabrera, PT - 09/06/2018 11:30 AM EDT Physical Therapy Progress Note Total treatment time: 43 minutes Total timed code treatment: 43 minutes Date of Exam/First Treatment: 08/23/2018 Date of onset: chronic Referring Provider: Re Blum MD, Saida Mistry APRN Diagnosis and comorbidities: 1. Disorder of muscle, ligament, and fascia ?? 2. Urinary and fecal incontinence ? Medicare Certification period: 08/23/2018 - 11/22/18 Goals: Short term goals (4 weeks) 1. Patient to be indep in the performance of a home program of pelvic floor muscle exercises on a daily basis. 2. Patient will demonstrate an increase in pelvic floor muscle endurance from 4 to 20 repetitions of5 seconds hold. 3. Patient to complete SEMG evaluation. 4. Patient will demonstrate knowledge of toilet positioning and techniques. ?? Goals: magazine publisher goals (3 months) 1. Patient to be independent with ongoing self management. 2. Patient will have decreased number of episodes of UI by 25%. 3. ADL???s not limited by UI, urgency or frequency. 4. Patient will have decreased episodes of FI by 25% S: Patient reports she has only had 1 episode of fecal incontinence since PT evaluation. She has been doing the HEP consistently 1x/day and then every time she thinks about it, she will do the exercises. Feels a little progress with the muscle strength. She has been able to hold her urine longer and make it to the toilet. She has not had any big accidents recently. Pleased with her progress. O: Treatment: neuro re-ed x 3 Evaluation: 08/23/18 Patient gives verbal consent to external and [...] ?? Rectal Exam: External anal sphincter: strength: 2/5, tone: 2/5, hold time: 5 seconds, anterior thinning or rectalsphincter, Valsalva: mild to moderate pelvic floor excursion, without muscle contraction ?? Today: Patient gives verbal consent to external [...] ~20 reps, with cue to coordinate with exhalation diaphragmatic breathing for relaxation/downtraining diaphragmatic breathing coordinated with pelvic floor muscle exercises, patient tends to contract oninhalation and holds breath pelvic floor muscle exercises in sitting Review and progress HEP: PT treatment of muscle weakness with FI and UI, toilet positioning and techniques including manual splinting, diaphragmatic breathing for relaxation/downtraining, diaphragmaticbreathing coordinated with pelvic floor muscle exercise, discussion on intra abdominal pressure and the impact on pelvic floor and UI/FI and preventative, and pelvic floor muscle exercises: LH 5 seconds, rest 10 seconds with full relaxation, x ~20 reps to fatigue, 2 sessions/day in supine and/or sitting A: Underactive pelvic floor muscles??with muscle weakness, anal incontinence and mixed urinary incontinence.?Patient performs a weak/fair voluntary pelvic floor muscle contraction with voluntary relaxation. Decreased rectal sphincter muscle strength and tone with signs of sphincter defect. Patient demonstrates improved pelvic floor muscle consistency and motor control when coordinated with exhalation. Modest gains in pelvic floor muscle strength, endurance and motor control with decreased episodes of UI and FI. Patient presents with impaired pelvic floor muscle strength, endurance and motor control. ??Patient would benefit from pelvic floor muscle training, awareness of habits, management of stool consistency, SEMG, NMEs and HEP. ?? P: Proceed 1x in 4 weeks for 4 sessions. Patient to continue with HEP on her own. Patient knows to contact me with any questions or concerns. documented in this encounter Plan of Treatment Upcoming Encounters Date Type Specialty Care Team Description 11/24/2021 Office Visit Neurology Gregg Lacy MD [place], [place] [address] (Wo rk) 04/06/2022 Appointment Radiology 04/06/2022 Office Visit Orthopaedics Wally Rouse MD [facility] ORTHOPAEDIC SURG [place], [place] [address] (Wo rk) documented as of this encounter Visit Diagnoses Diagnosis Disorder of muscle, ligament, and fascia Unspecified disorder of muscle, ligament , and fascia Urinary and fecal incontinence Unspecified urinary incontinence documented in this encounter Care Teams Analysis Consultant Relationship Specialty Start Date End Date Ekaterina Omer MD PCP - General General Internal Medicine 08/23/18 [address] [place] [address] documented as of this encounter
--- OUTSIDE RECORDS SUMMARY | 2021-10-13 15:52 | XMS_ITS | Encounter Summary ---
:1950 Author Organization [place] [address] Care Team Providers Name Role Phone Ekaterina Omer MD Primary Care Provider Reason for Visit Reason Onset Date Comments Medication Refill 08/25/2018 Encounter Details Date Type Department Care Team Description 08/25/2018 Refill Weight and Wellness at [place], steven Cruz MD Impaired fasting glucose [facility] [place] [address] [place] [address] [place] [address] [phone] (Wo rk) Social History Tobacco Use Types [...] 11/24/2021 Office Visit Neurology Gregg Lacy MD [place], [place] [address] (Wo rk) 04/06/2022 Appointment Radiology 04/06/2022 Office Visit Orthopaedics Wally Rouse MD [facility] ORTHOPAEDIC SURG [place], [place] [address] (Wo rk) documented as of this encounter Visit Diagnoses Diagnosis Impaired fasting glucose documented in this encounter Care Teams Lab Intern Relationship Specialty Start Date End Date Ekaterina Omer MD PCP - General General Internal Medicine 08/23/[address] [place] [address] documented as of this encounter
--- OUTSIDE RECORDS SUMMARY | 2021-10-13 15:52 | XMS_ITS | Encounter Summary ---
:1950 Author Organization [facility] [place] [address] Care Team Providers Name Role Phone Ekaterina Omer MD Primary Care Provider Encounter Details Date Type Department Care Team Description 07/02/2019 Telephone Neurology at [facility] Hailey Hermosillo, [facility] [place] [address] [place] [address] [phone] (Wo rk) Social History Tobacco Use Types Packs/Day Years Used Date Former Smoker Cigarettes 1 10 Quit: 05/10/18 73 Smokeless Tobacco: Never Used Alcohol Use Standard Drinks/Week Comments No 0 (1 standard drink = 0.6 oz pure alcoho l) Sex Assigned at Date Recorded Female 01/18/2021 7:28 AM EST documented as of this encounter Miscellaneous Notes Telephone Encounter - Lissette Berry - 07/02/2019 3:11 PM EDT Called pt 1x to schedule 6 month follow up with Hailey Hermosillo. documented in this encounter Plan of Treatment Upcoming Encounters Date Type Specialty Care Team Description 11/24/2021 Office Visit Neurology Gregg Lacy MD [place], [place] [address] (Wo rk) 04/06/2022 Appointment Radiology 04/06/2022 Office Visit Orthopaedics Wally Rouse MD [facility] ORTHOPAEDIC SURG [place], [place] [address] (Wo rk) documented as of this encounter Visit Diagnoses Not on filedocumented in this encounter Care Teams Photograph Developer Relationship Specialty Start Date End Date Ekaterina Omer MD PCP - General General Internal Medicine 08/23/18 [address] [place] [address] documented as of this encounter
--- OUTSIDE RECORDS SUMMARY | 2021-10-13 15:52 | XMS_ITS | Encounter Summary ---
:1950 Author Organization [facility] [place] [address] Care Team Providers Name Role Phone Ekaterina Omer MD Primary Care Provider Encounter Details Date Type Department Care Team Description 09/08/2020 Ancillary Procedure Radiology Library at Marichuy Omer [facility] [address] [place], [place] [address] [place] [address] [phone] Social History Tobacco Use Types Packs/Day Years [...] 11/24/2021 Office Visit Neurology Gregg Lacy MD [place], [place] [address] (Wo rk) 04/06/2022 Appointment Radiology 04/06/2022 Office Visit Orthopaedics Wally Rouse MD [facility] ORTHOPAEDIC SURG [place], [place] [address] (Wo rk) documented as of this encounter Procedures Procedure Name Priority Date/Time Associated Diagnosis Comme nts FILM LIBRARY Routine 09/08/2020 12:00 AM Results for this STORAGE ONLY DX EDT procedure ar e in SHOULDER the results section. documented in this encounter Results Film Library- Storage Only DX Shoulder (09/08/2020 12:00 AM EDT) Specimen (Source) Anatomical Location Collection Method / Collectio n Time Received Time / Laterality Volume Narrative RAD - 09/10/2020 1:59 PM EDT This exam is auto-finalizing. It's purpo se is for storage only. Ekaterina Omer MD [facility] FILM LIBRARY ORDERABLES Performing Organization Address City/State/ZIP Code Phon e Number [place], [place] documented in this encounter Visit Diagnoses Not on filedocumented in this encounter Care Teams Business Development Sales Executive Relationship Specialty Start Date End Date Ekaterina Omer MD PCP - General General Internal Medicine 08/23/18 [address] [place] [address] documented as of this encounter
--- OUTSIDE RECORDS SUMMARY | 2021-10-13 15:52 | XMS_ITS | Encounter Summary ---
:1950 Author Organization [facility] [place] [address] Care Team Providers Name Role Phone Ekaterina Omer MD Primary Care Provider Reason for Referral Diagnostic Test (Routine) - Closed Specialty Diagnoses / Procedures Referred By Contact Refer red To Contact Radiology Diagnoses Fall on same level from slipping, tripping and stumbling with subsequent striking against unspecified object, initial encounter Zahra Raman APRN [facility] Rad Xray Procedures XR Ribs AP, Oblique & PA Chest Left (Generic) [address] [place] [address] [place] [address] [place] [address] Referral ID Status Reason Start Date Expiration Date Visits V isits Requested Authorized [id number] Closed Specialty 09/14/2020 09/14/2021 1 1 Service Requested Reason for Visit Diagnostic Test (Routine) - Closed Specialty Diagnoses / Procedures Referred By Contact Refer red To Contact Radiology Diagnoses Fall on same level from slipping, tripping and stumbling with subsequent striking against unspecified object, initial encounter Zahra Raman APRN [facility] Rad Xray Procedures XR Ribs AP, Oblique & PA Chest Left (Generic) [address] [place] [address] [place] [address] Referral ID Status Reason Start Date Expiration Date Visits V isits Requested Authorized [id number] Closed Specialty 09/14/2020 09/14/2021 1 1 Service Requested Encounter Details Date Type Department Care Team Description 09/15/2020 Hospital Encounter XRay at [facility] Nimco Ha Closed bicondylar fracture o f distal end of left humerus, initial encounter; [address] Lazara MD Fall on same level from slipping, trippi ng and stumbling with subsequent striking against unspecified object, initial encounter [place], [place] [facility] [address] CENTER [phone] [place] [address] Social History Tobacco Use Types Packs/Day Years [...] by mouth 0 11/08/2020 mg Tablet daily. HYDROmorphone Take 2 mg by mouth 0 (Dilaudid) 2 mg Tablet every 4 hours as needed for Pain. 1-2 tabs every 4hrs oxyCODONE 5 mg Capsule Take 5 mg by mouth 0 09/24/2020 every 4 hours as needed. cephALEXin (KEFLEX) 500 Take 1 tablet by 40 tablet 0 202009/25/2020 mg Tablet mouth 4 times daily for 10 days. acetaminophen (Tylenol) Take 1,000 mg by 0 12/01/2020 500 mg Tablet mouth every 6 hours as needed for Pain. donepeziL (Aricept) 10 0 11/19/2019 mg Tablet amLODIPine (Norvasc) amlodipine 2.5 mg 0 11/09/2020 2.5 mg Tablet tablet buPROPion XL Take 150 mg by mouth 0 (Wellbutrin XL) 150 mg every morning. Taking Tablet Extended Release in addition to the 24 hr 300mg for a total of 450mg daily. metFORMIN (Glucophage) Take 500 mg by mouth 0 09/20/2020 500 mg Tablet 2 times daily (with meals). UNABLE TO FIND Take 10 mg by [...] 11/24/2021 Office Visit Neurology Gregg Lacy MD [place], [place] [address] (Wo rk) 04/06/2022 Appointment Radiology 04/06/2022 Office Visit Orthopaedics Wally Rouse MD [facility] ORTHOPAEDIC SURG [place], [place] [address] (Wo rk) documented as of this encounter Procedures Procedure Name Priority Date/Time Associated Diagnosis Comme nts XR RIBS AP, OBLIQUE Routine 09/15/2020 9:46 AM Fall on same le papi Results for this LEFT AND PA CHEST EDT from slipping, procedur e are in tripping and the results stumbling with section. subsequent striking against unspecified object, initial encounter XR ELBOW 3 VIEWS Routine 09/15/2020 9:46 AM Closed bicondylar Results for this LEFT (GENERIC) EDT fracture of distal procedu re are in end of left humerus, the res ults initial encounter section. documented in this encounter Results XR Ribs AP, Oblique & PA Chest Left (Generic) (09/15/2020 9:46 AM EDT) Anatomical Region Laterality Modality Chest Left Digital Radiography Specimen (Source) Anatomical Location Collection Method / Collectio n Time Received Time / Laterality Volume Impressions 09/15/2020 1:16 PM EDT 1. ??No fractures or dislocations. 2. ??No acute cardiopulmonary process. I have personally reviewed the image(s) and the resident's interpretation and agree with the findings, Екатерина Wells MD at 09/15/2020 1:16 PM Thank you for letting us participate in the care of this patient. ??If you are a health care provider and have any questi ons regarding this report, please contact the number below. ??For patients who have questions please contact the health primary care pediatrician that requested your imaging first. ? Narrative 09/15/2020 1:16 PM EDT EXAMINATION: XR RIBS AP, OBLIQUE AND PA CHEST LEFT (GENERIC) CLINICAL HISTORY: LEFT SIDE PAIN AFTER F ALL TECHNIQUE: AP, PA, and LPO views of the left chest COMPARISON: CT chest 06/18/2017 FINDINGS: No displaced rib or other fractures iden tified. No pneumothorax or large pleural effusions. Normal alignment of bilateral shoulders. No focal airspace consolidation. Cardiom ediastinal silhouette, ash, pulmonary vascular markings are unchanged from hunter or. Cervicothoracic spondylosis is partially imaged. Procedure Note Екатерина Wells MD - 09/15/2020Forma tting of this note might be different from the original. EXAMINATION: XR RIBS AP, OBLIQUE AND PA CHEST LEFT (GENERIC) CLINICAL HISTORY: LEFT SIDE PAIN AFTER F ALL TECHNIQUE: AP, PA, and LPO views of the left chest COMPARISON: CT chest 06/18/2017 FINDINGS: No displaced rib or other fractures iden tified. No pneumothorax or large pleural effusions. Normal alignment of bilateral shoulders. No focal airspace consolidation. Cardiom ediastinal silhouette, ash, pulmonary vascular markings are unchanged from hunter or. Cervicothoracic spondylosis is partially imaged. IMPRESSION 1. No fractures or dislocations. 2. No acute cardiopulmonary process. I have personally reviewed the image(s) and the resident's interpretation and agree with the findings, Екатерина Wells MD at 09/15/2020 1:16 PM Thank you for letting us participate in the care of this patient. If you are a health care provider and have any questi ons regarding this report, please contact the number below. For patients w ho have questions please contact the health primary care pediatrician that requested your imaging first. Zahra Raman CHIEF CHEMIST IMG DX ORDERABLES XR Elbow 3 Views Left (GENERIC) (09/15/2020 9:46 AM EDT) Anatomical Region Laterality Modality Elbow Left Digital Radiography Specimen (Source) Anatomical Location Collection Method / Collectio n Time Received Time / Laterality Volume Impressions 09/15/2020 11:42 AM EDT Interval placement of splint material at the posterior elbow with slight improvement in alignment of distal humer al fracture. I have personally reviewed the image(s) and the resident's interpretation and agree with the findings, Екатерина Wells MD at 09/15/2020 11:42 AM Thank you for letting us participate in the care of this patient. ??If you are a health care provider and have any questi ons regarding this report, please contact the number below. ??For patients who have questions please contact the health primary care pediatrician that requested your imaging first. ? Narrative 09/15/2020 11:42 AM EDT EXAMINATION: XR ELBOW 3 VIEWS LEFT (GENERIC) CLINICAL HISTORY: Left distal humerus fr acture. 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 TECHNIQUE: 3 views LEFT elbow COMPARISON: CT left upper extremity 09/09/2040 Left elbow radiographs 09/09/2020 FINDINGS: Interval placement of splint material at the posterior elbow with slight improvement in alignment of distal humer us fracture. Previously identified trochlear, capitellar and radial head fr actures are redemonstrated. Coracoid process fracture is not well identified on this radiograph. The dominant fragment of the radial head fracture con tinues to be outwardly rotated. Diffuse soft tissue swelling and joint e ffusion are present. Procedure Note Екатерина Wells MD - 09/15/2020Forma tting of this note might be different from the original. EXAMINATION: XR ELBOW 3 VIEWS LEFT (GENE VIPIN) CLINICAL HISTORY: Left distal humerus fr acture. 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 TECHNIQUE: 3 views LEFT elbow COMPARISON: CT left upper extremity 09/09/2040 Left elbow radiographs 09/09/2020 FINDINGS: Interval placement of splint material at the posterior elbow with slight improvement in alignment of distal humer us fracture. Previously identified trochlear, capitellar and radial head fr actures are redemonstrated. Coracoid process fracture is not well identified on this radiograph. The dominant fragment of the radial head fracture con tinues to be outwardly rotated. Diffuse soft tissue swelling and joint e ffusion are present. IMPRESSION Interval placement of splint material at the posterior elbow with slight improvement in alignment of distal humer al fracture. I have personally reviewed the image(s) and the resident's interpretation and agree with the findings, Екатерина Wells MD at 09/15/2020 11:42 AM Thank you for letting us participate in the care of this patient. If you are a health care provider and have any questi ons regarding this report, please contact the number below. For patients w ho have questions please contact the health primary care pediatrician that requested your imaging first. Nimco Ha MD IMG DX ORDERABLES documented in this encounter Visit Diagnoses Diagnosis Closed bicondylar fracture of distal end of left humerus, initial encounter Fall on same level from slipping, trippi ng and stumbling with subsequent striking against unspecified object, initial enco unter documented in this encounter Care Teams Gauge Maker Relationship Specialty Start Date End Date Ekaterina Omer MD PCP - General General Internal Medicine 08/23/18 [address] [place] [address] documented as of this encounter
--- OUTSIDE RECORDS SUMMARY | 2021-10-13 15:52 | XMS_ITS | Encounter Summary ---
:1950 Author Organization [facility] [place] [address] Care Team Providers Name Role Phone Ekaterina Omer MD Primary Care Provider Reason for Visit Reason Comments Medication Refill Encounter Details Date Type Department Care Team Description 01/12/2019 Refill Weight and Wellness at [place], steven Cruz MD Impaired fasting glucose [address] [place] [address] [place] [address] [phone] (Wo rk) Social History Tobacco Use Types [...] 11/24/2021 Office Visit Neurology Gregg Lacy MD [place], [place] [address] (Wo rk) 04/06/2022 Appointment Radiology 04/06/2022 Office Visit Orthopaedics Wally Rouse MD [facility] ER [facility] ORTHOPAEDIC SURG [place], [place] [address] (Wo rk) documented as of this encounter Visit Diagnoses Diagnosis Impaired fasting glucose documented in this encounter Care Teams Senior Electronics Engineer Relationship Specialty Start Date End Date Ekaterina Omer MD PCP - General General Internal Medicine 08/23/18 [address] [place] [address] documented as of this encounter
--- OUTSIDE RECORDS SUMMARY | 2021-10-13 15:52 | XMS_ITS | Encounter Summary ---
:1950 Author Organization [facility] [place] [address] Care Team Providers Name Role Phone Ekaterina Omer MD Primary Care Provider Reason for Visit Reason Comments Medication Refill Encounter Details Date Type Department Care Team Description 12/15/2018 Refill Weight and Wellness at [place], steven Cruz MD Impaired fasting glucose [address] [place] [address] [place] [phone] (Wo rk) Social History Tobacco Use Types [...] 11/24/2021 Office Visit Neurology Gregg Lacy MD [place], [place] [address] (Wo rk) 04/06/2022 Appointment Radiology 04/06/2022 Office Visit Orthopaedics Wally Rouse MD [facility] ORTHOPAEDIC SURG [place], [place] [address] (Wo rk) documented as of this encounter Visit Diagnoses Diagnosis Impaired fasting glucose documented in this encounter Care Teams Plastic Tool Maker Relationship Specialty Start Date End Date Ekaterina Omer MD PCP - General General Internal Medicine 08/23/18 [address] [place] [address] documented as of this encounter
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
--- OUTSIDE RECORDS SUMMARY | 2021-10-13 15:52 | XMS_ITS | Encounter Summary ---
:1950 Author Organization [facility] [place] [address] Care Team Providers Name Role Phone None Primary Care Provider Unavailable Reason for Referral Physical Therapy (Routine) - Specialty Diagnoses / Procedures Referred By Contact Refer red To Contact Physical Therapy Diagnoses Full incontinence of feces Re Blum MD [facility] [address] [place] [phone] Fax: Referral ID Status Reason Start Date Expiration Date Visits V isits Requested Authorized [id number] Evaluate and 07/02/2018 07/02/2019 12 12 Treat Consultation (Routine) - Closed Specialty Diagnoses / Procedures Referred By Contact Refer red To Contact Obstetrics and Diagnoses Full incontinence of feces Re Blum MD [facility]ask [employer]itter 5l Gynecology [facility] [address] [place] [phone] Fax: Referral ID Status Reason Start Date Expiration Date Visits V isits Requested Authorized [id number] Closed Consult, 07/02/2018 07/02/2019 1 1 Test & Treat Reason for Visit Reason Comments Establish Care Consultation (Routine) - Closed Specialty Diagnoses / Procedures Referred By Contact Refer red To Contact General Surgery Diagnoses FECAL INCONTINENCE Ekaterina Omer MD [facility] Gen Surgery 4l [address] [place] [address] [place] [address] Phone: Fax: Referral ID Status Reason Start Date Expiration Date Visits Requ ested Visits Authorized [id number] Closed 02/28/2018 02/28/2019 1 1 Encounter Details Date Type Department Care Team Description 07/02/2018 Office Visit General Surgery at Re Blum, Full incontinence of feces; [facility] Urinary and fecal incontinence [facility] [address] Campbell, [place] GENERAL SURGERY [phone] [place] [id number] [phone] Social History Tobacco Use Types Packs/Day Years [...] Sign Reading Time Taken Comments Blood Pressure 145/70 07/02/2018 2:22 PM EDT Pulse 88 07/02/2018 2:22 PM EDT Temperature 36.6 ??C (97.8 ??F) 07/02/2018 2:22 PM EDT Respiratory Rate 18 07/02/2018 2:22 PM EDT Oxygen Saturation 92% 07/02/2018 2:22 PM EDT Inhaled Oxygen Concentration - - Weight 106.1 kg (234 lb) 07/02/2018 2:22 PM EDT Height - - Body Mass Index 41.45 06/25/2018 12:37 PM EDT documented in this encounter Progress Notes Re Blum MD - 07/02/2018 2:30 PM EDT Colorectal Surgery Outpatient Consultation ~ Division of Colon and Rectal Surgery ~ [facility] HPI: Kiya Cummings is a pleasant 68 y.o. female who we were asked to see by Dr. Omer regarding Chief Complaint Patient presents with ??? Establish Care . The patient's PCP is None. Kiya Cummings is a 68 yo woman seen previously by Layla Mark in August 2015 for the same complaint. Current concern is fecal incontinence which started 6 months ago per her report. Had one episode of incontinence a couple years ago - went away on its own. Patient reports incontinence started again inNovember. Incontinence to liquid and solid stool. Has no sensation of passing stool. Can't tell the different between gas and stool. Wakes up in the morning and sees stool balls on the floor. Incontinence one time a day 4-5 days per week. More continent than incontinent. Stools 2-3 times a day with diarrhea to once every 3 days if constipated. In that scenario, she willthen take colace. If having diarrhea, she will take an antidiarrhea medication. Heavy lifting makes things worse. No nighttime incontinence. Has urge urinary incontinence 3-5 times daily. Changes a pad3-5 times daily - wears this for stool and urine. Recurrent UTIs - every 5-6 weeks. Trying to lose weight. TVH for prolapse. Had rectocele and cystocele repair at the same time. No prolapse now. Hypothyroid - TSH WNL 3.03 in June 2018 Morbid obesity. - 8 pounds 10 oz. May have had a tear. PE on eliquis We discussed her prior visit with Layla. She was started on fiber which she notes did work for awhile but then she stopped taking it. Has not resumed. Saw pelvic floor PT for 2 sessions. Their notes indicate that pelvic floor PT was working for her but then she had out of town guests, canceled the appointment, and never went back or did more exercises. Review of Systems Constitutional: Positive for malaise/fatigue. Negative for anorexia and weight loss. Respiratory: Positive for cough. Negative for shortness of breath. Genitourinary: Positive for urge incontinence. Negative for stress incontinence. Gastrointestinal: Positive for abdominal discomfort, constipation and diarrhea. HENT: Positive for sinus pressure. Psychiatric/Behavioral: Positive for depression. Negative for physiological symptoms of anxiety. Hematologic/Lymphatic: Negative for easy bleeding. Does not bruise/bleed easily. Allergic/Immunologic: Negative for immunocompromised state. Musculoskeletal: Positive for joint pain and stiffness. Cardiovascular: Negative for leg edema. Neurological: Positive for headaches. Skin: Negative for raised rash. COREFO Responses 08/11/2015 07/02/2018 Incontinence Scale 27.77 41.66 Social Impact Scale 16.66 38.88 Frequency Scale 0 12.5 Stool Releated Aspects 16.66 25 Medication Scale 8.33 25 Total COREFO Score 18.26 34.61 The COREFO questionnaire is a validated questionnaire with 27 questions to assess colorectal functional outcome. Patients are asked to consider the two week period prior before filling out the questionnaire. Category scores range from zero to 100. A total score is calculated from the categories above,also ranging from zero to 100. A higher score represents an increased level of functional disturbance. Past medical history: Past Medical History: Diagnosis Date ??? Allergy [...] Varicose veins of left lower extremities Past surgical history: Past Surgical History: Procedure Laterality Date ??? PRO COLONOSCOPY, DIAGNOSTIC N/A 12/24/2017 COLONOSCOPY, DIAGNOSTIC performed by Caleb Tineo MD at [facility] ENDOSCOPY ??? PRO EXCISE EXCESS SKIN TISSUE, ABDOMEN N/A 03/06/2014 ABDOMINOPLASTY performed by Marcos Vance MD at [facility] MAIN OR ??? PRO UNLISTED PROCEDURE, MUSCULOSKELETAL SYSTEM, GENERAL both shouloders rotater cuff ??? PRO UNLISTED PX FEMALE GEN SYS 1994 1981 prolapse hysterectomy ??? VASCULAR SURGERY 1989 varicose veins both legs Allergies: Sulfa (sulfonamide antibiotics); Ciprofloxacin; Macrodantin [nitrofurantoin macrocrystal]; and Pramipexole Medications: reviewed in the electronic medical record. Current Outpatient Medications on File Prior to Visit Medication Sig Dispense Refill ??? levothyroxine (SYNTHROID) 100 mcg Tablet Take 100 mcg by mouth daily. ??? multivitamin (THERAGRAN) Tablet Take 1 tablet by mouth daily. ??? D-MANNOSE ORAL Take 1,500 mg by mouth daily. ??? vit C,K-Bq-xxxpe-lutein-zeaxan (PRESERVISION AREDS-2) [id number] se-lruc-mg-mg Capsule Take 1 capsule by mouth daily. ??? magnesium 250 mg Tablet Take 500 mg by mouth daily. ??? metFORMIN (GLUCOPHAGE) 500 mg Tablet Take 2 tablets by mouth 2 times daily (with meals). 120 tablet 3 ??? buPROPion (WELLBUTRIN XL) 300 mg Tablet Extended Release 24 hr Take 1 tablet by mouth every morning. 30 tablet 3 ??? venlafaxine (EFFEXOR-XR) 150 mg [...] facility-administered medications on file prior to visit. Social history: reports that she quit smoking about 46 years ago. Her smoking use included cigarettes. She has a 10.00 pack-year smoking history. She has never used smokeless tobacco. She reports that she does not drink alcohol or use drugs. Family medical history: Family History Problem Relation Age of Onset ??? Alcohol Abuse Sister ??? Thrombophilia Mother ??? Coronary Artery Disease Mother ??? High Blood Pressure Mother ??? Cervical Cancer Mother ??? Parkinsonism Father ??? Stomach Cancer Brother ??? Obesity Brother ??? Diabetes Brother ??? Myocardial Infarction Brother ??? Obesity Sister ??? Gallbladder Disease Son Gallstones s/p cholecystectomy Patient denies a family history of: colorectal cancer, colorectal polyps, diverticular disease, Crohn disease and ulcerative colitis. Patient admits a family history of: Uterine or endometrial cancer - patient's mother. Physical exam: Vitals:Blood pressure 145/70, pulse 88, temperature 36.6 ??C (97.8 ??F), resp. rate 18, weight 106.1 kg (234 lb), SpO2 92 %.@BMI BMI: Body mass index is 41.45 kg/m??. General Appearance: NAD Neuro: Normal gait Psych: Normal affect Eyes: EOMI ENT: MMM CV: NSR Resp: CTAB Lymph: No cervical LAD GI Abdomen: Soft NT ND> Well healed surgical incisions Digital Rectal Exam: The patient was examined in the prone nayeli knife position with Desmond assisting. The perianal skin is normal. The anus is closed. On digital rectal exam resting tone is mildly decreased and squeeze tone is mildly decreased. There is normal relaxation with valsalva. There are no masses. There is no gross blood. There is no tenderness to palpation. Anoscopy: The well lubricated anoscope was inserted into the anal canal and the entire anal canal and distal rectum were inspected. Findings include: Small internal hemorrhoids. Otherwise normal distalrectal mucosa. Ext: No LE edema Labs: reviewed. Endoscopy: reviewed. 12/2017 Path: reviewed. Imaging: reviewed. Impression/Plan: Kiya Cummings is a 68-year-old woman presenting for reevaluation of fecal incontinence. She was seen previously in 2016 for the same complaints. It appears at that time she was having improvement with fiber and pelvic floor physical therapy. For unclear reasons, she stopped both the fiber and physical therapy. She now has recurrent and somewhat worse symptoms with more frequency of incontinent episodes. On physical exam there is no obvious anatomic reason for her incontinence. She did have a large baby via vaginal delivery. She is up-to-date on her colonoscopy. She fluctuates between diarrhea and constipation. I have re-referred her for pelvic floor physical therapy as she was having improvement based on the evaluation of the physical therapist. I have also recommended she restart her fiber therapy. We discussed psyllium fiber powder, 1 to 3 tablespoons daily with the goal of soft, easy to pass bowel movements. Given her urge urinary incontinence, I have also referred her to urogynecology for evaluation. She has had previous surgery with an outside urogynecologost. I did discuss with her that if fiber and pelvic floor physical therapy do not improve her incontinence, she could be considered for sacral nerve stimulator which would likely improve both her urge urinary incontinence and her fecal incontinence. We did discuss briefly that sacral nerve stimulator is considered successful if the number of incontinent episodes per week is decreased by 50%. This means she may still have incontinence that would be less frequent. I also discussed with her that I do not personally perform these procedures. This can b e placed by either urogynecology or by my partner Dr. Swenson. When she has adequately titrated her fiber, I have asked that she complete a 2- week bowel diary and the forms were given to her to complete this. Future follow-up should be with Dr. Swenson for evaluation of possible sacral nerve stimulator. Re Blum MD gas golf cart repairer Division of Colon and Rectal Surgery [facility] Pager [phone] documented in this encounter Plan of Treatment Upcoming Encounters Date Type Specialty Care Team Description 11/24/2021 Office Visit Neurology Gregg Lacy MD [place], [place] [address] (Wo rk) 04/06/2022 Appointment Radiology 04/06/2022 Office Visit Orthopaedics Wally Rouse MD [facility] ORTHOPAEDIC SURG [place], [place] [address] (Wo rk) Scheduled Referrals Name Type Priority Associated Diagnoses Order S chedule Referral to Outpatient Routine Full incontinence of Ordered : Urogynecology Referral feces 07/02/2018 Referral to Physical Outpatient Routine Full incontinence of Ordered: Therapy Referral feces 07/02/2018 documented as of this encounter Visit Diagnoses Diagnosis Full incontinence of feces Urinary and fecal incontinence Unspecified urinary incontinence documented in this encounter Care Teams Neon Sign Installer Relationship Specialty Start Date End Date None PCP - General 06/25/18 08/22/18 None documented as of this encounter
--- OUTSIDE RECORDS SUMMARY | 2021-10-13 15:52 | XMS_ITS | Encounter Summary ---
:1950 Author Organization [facility] [address] Care Team Providers Name Role Phone Ekaterina Omer MD Primary Care Provider Encounter Details Date Type Department Care Team Description 07/06/2020 Office Visit Neurology at [facility] Mecca Elam, Mild cognitive [facility] impairment with [facility] [place] [address] NEUROLOGY DEPT [phone] [place], [place] [address] (Wo rk) Social History Tobacco Use Types Packs/Day Years Used Date Former Smoker Cigarettes 1 10 Quit: 05/10/18 73 Smokeless Tobacco: Never Used Alcohol Use Standard Drinks/Week Comments No 0 (1 standard drink = 0.6 oz pure alcoho l) Sex Assigned at Date Recorded Female 01/18/2021 7:28 AM EST documented as of this encounter Progress Notes Mecca Elam MD - 07/06/2020 8:30 AM EDT Kiya is a 70 yo F w/ a history of hypothyroidism, LEONARD (on CPAP), pulmonary embolism, mild cognitiveimpairment vs questionable mild dementia, (likely cerebrovascular in origin, also impacted by anxiety), here for follow up of cognitive decline. She was previously followed by Hailey Hermosillo APRN. She had formal neuropsychological testing done in late 2019, and it was within normal limits, with only mild weaknesses: Briefly, Ms. Cummings demonstrated intact cognitive performance across domains. Subtle relative weaknesses were found on tasks of nonverbal reasoning, recall of visual information, cognitive f lexibility, receptive language, and phonemic verbal fluency, though [...] disease. Other factors that may be contributing tothe clinical presentation include variability in sleep, mild depression symptoms (and reported worsening over the past two years), and increased stress. The quiet and structured nature of the testing session may account in part for her experience of greater cognitive problems in daily life. In addition to the reported cognitive decline, she has had hallucinations, but has demonstrated no other features concerning for lewy body dementia. She is with Nabil. She feels she has had decline, but does not worry about her. He has seen improvements in memory with he relief that came from knowing her cognitive testing was normal. She also performs better when in [place] with friends. 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 This is all c/w that documented in Hailey's note. Patient Active Problem List Diagnosis Code ??? [...] E66.01, Z68.41 ??? Mild cognitive impairment G31.84 Allergies Allergen Reactions ??? Sulfa (Sulfonamide Antibiotics) Hives ??? Ciprofloxacin ??? Macrodantin [Nitrofurantoin Macrocrystal] ??? Pramipexole Current Outpatient Medications on File Prior to [...] facility-administered medications on file prior to visit. General Examination Appearance: The patient is healthy, and appears comfortable. Head: Atruamatic. Normocephalic. Neck: Normal range of movements. No carotid bruits Heart is RRR Extremities: Normal in appearance, no edema. Skin: No rashes or lesions Neurological Examination Mental status: Speech is fluent and appropriate, comprehension fully intact. Attention, concentration, and praxis are intact. Cranial nerves: extra-ocular movements intact, face and smile are symmetric, hearing is intact, no dysarthria. Cerebellar/coordination: No tremors or abnormal movement noted. Normal fine motor movements. Gait and station: Gait is normal and steady Normal symmetric reflexes A/P: Her normal cognitive testing, normal PET are both reassuring. She reports a 5-10 year history of slowly progressive cognitive changes which are likely due to cerebral small vessel ischemia. I do not know what to make of her hallucinations (she has had two), but I do not find her to be parkinsonian. She did yell in her sleep once (while in a hotel), but does not necessarily have a REM sleep behavioral disorder. She does have a string FH of parkinson's disease dementia (father, his brother and 2 sisters), so it may be quinones to keep an eye on her. We talked about the importance of managing risk factors for cerebrovascular disease, including hypertension, diabetes, hyperlipidemia, LEONARD. Etc. Both pharmacologic and non-pharmacologic methods of memory management and improvement were discussed. We discussed the importance of external aids as memory guides, the importance of habit and routine,as well as the importance of diet, exercise and continued social/cognitive stimulation. 30 minutes were spent face to face with the patient and the family, and at least 25 minutes spent ondirect education, supportive counseling, and coordination of care. Follow up in 2 years with Mona Monge APRN. documented in this encounter Plan of Treatment Upcoming Encounters Date Type Specialty Care Team Description 11/24/2021 Office Visit Neurology Gregg Lacy MD [place], [place] [address] (Wo rk) 04/06/2022 Appointment Radiology 04/06/2022 Office Visit Orthopaedics Wally Rouse MD [facility] ORTHOPAEDIC SURG [place], [place] [address] (Wo rk) documented as of this encounter Visit Diagnoses Diagnosis Mild cognitive impairment with memory lo ss Mild cognitive impairment, so stated documented in this encounter Care Teams Heel Attacher Wood Relationship Specialty Start Date End Date Ekaterina Omer MD PCP - General General Internal Medicine 08/23/18 [address] [place] [address] documented as of this encounter
--- OUTSIDE RECORDS SUMMARY | 2021-10-13 15:52 | XMS_ITS | Encounter Summary ---
:1950 Author Organization [facility] [place] [address] Care Team Providers Name Role Phone Ekaterina Omer MD Primary Care Provider Encounter Details Date Type Department Care Team Description 09/10/2020 Orders Only Orthopaedics at [facility] Zahra Alvarenga Closed bicondylar [facility] [place] fracture of distal Drive [facility] end of left humerus, [place] [address] [address] initial encounter [phone] ORTHOPAEDIC SURGERY [place], [place] [address] Social History Tobacco Use Types [...] 11/24/2021 Office Visit Neurology Gregg Lacy MD [place], [place] [address] (Wo rk) 04/06/2022 Appointment Radiology 04/06/2022 Office Visit Orthopaedics Wally Rouse MD [facility] ORTHOPAEDIC SURG [place], [place] [address] (Wo rk) documented as of this encounter Results XR Elbow 3 Views Left (GENERIC) (09/15/2020 [...] who have questions please contact the health personal care attendant that requested your imaging first. ? Electronically signed by: Екатерина rollins MD, [facility] ([phone]), at 09/15/2020 11:42 AM Narrative 09/15/2020 11:42 AM EDT EXAMINATION: XR ELBOW 3 VIEWS LEFT (GENERIC) CLINICAL HISTORY: Left distal humerus fr acture. Requesting traction view, page ortho resident education associate. TECHNIQUE: 3 views LEFT elbow COMPARISON: CT [...] original. EXAMINATION: XR ELBOW 3 VIEWS LEFT ([facility]) CLINICAL HISTORY: Left distal humerus fr acture. Requesting traction view, page ortho resident education associate. TECHNIQUE: 3 views LEFT elbow COMPARISON: CT [...] ho have questions please contact the health personal care attendant that requested your imaging first. Electronically signed by: Екатерина rollins MD, [facility] ([phone]), at 09/15/2020 11:42 AM Nimco Ha MD IMG DX ORDERABLES documented in this encounter Visit Diagnoses Diagnosis Closed bicondylar fracture of distal end of left humerus, initial encounter Closed bicondylar fracture of distal end of left humerus, initial encounter Fall on same level from slipping, trippi ng and stumbling with subsequent striking against unspecified object, initial enco unter documented in this encounter Care Teams Md Physician Dermatologist Relationship Specialty Start Date End Date Ekaterina Omer MD PCP - General General Internal Medicine 08/23/[address] [place] [phone] documented as of this encounter
--- OUTSIDE RECORDS SUMMARY | 2021-10-13 15:52 | XMS_ITS | Encounter Summary ---
:1950 Author Organization [facility] [place] [address] Care Team Providers Name Role Phone Ekaterina Omer MD Primary Care Provider Reason for Visit Reason Onset Date Comments Medication Refill 01/15/2019 Encounter Details Date Type Department Care Team Description 01/15/2019 Refill Weight and Wellness at [place], steven Cruz MD Impaired fasting glucose [facility] [address] [facility] [place] [address] [place] [address] [phone] (Wo rk) Social History Tobacco Use Types [...] 11/24/2021 Office Visit Neurology Gregg Lacy MD [place], [place] [address] (Wo rk) 04/06/2022 Appointment Radiology 04/06/2022 Office Visit Orthopaedics Wally Rouse MD [facility] ORTHOPAEDIC SURG [place], [place] [address] (Wo rk) documented as of this encounter Visit Diagnoses Diagnosis Impaired fasting glucose documented in this encounter Care Teams Time Study Analyst Relationship Specialty Start Date End Date Ekaterina Omer MD PCP - General General Internal Medicine 08/23/[address] [place] [phone] documented as of this encounter
--- OUTSIDE RECORDS SUMMARY | 2021-10-13 15:53 | XMS_ITS | Encounter Summary ---
:1950 Author Organization [facility] [place] [address] Care Team Providers Name Role Phone Dallas Rizvi MD Primary Care Provider Reason for Visit Reason Comments Follow-up 03/06/14 abdominalplasty Encounter Details Date Type Department Care Team Description 03/18/2014 Follow-Up Plastic Surgery at Ekaterina Rivera, Other specified [facility] TELEPHONE INFORMATION CLERK aftercare following [facility] [place] [address] PLASTIC SURGERY [phone] [place], [place] [address] (Wo rk) Social History Tobacco Use Types Packs/Day Years Used Date Former Smoker Cigarettes 1 10 Quit: 05/10/18 78 Smokeless Tobacco: Never Used Alcohol Use Standard Drinks/Week Comments No 0 (1 standard drink = 0.6 oz pure alcoho l) Sex Assigned at Date Recorded Female 01/18/2021 7:28 AM EST documented as of this encounter Patient Instructions Patient InstructionsEkaterina Rivera APRN - 03/18/2014 11:14 AM EST 1. Follow up:6 weeks post op 2. Maintain support garments, once last drain is removed ok to transition to a light support garment 3. Continue to monitor drain output, ok for VNA when drain output is < 30 cc for 2 consecutive days 4. Ok to go on short walks,and go up and down stairs, no lifting > 5 lbs- 10 lbs, no abdominal based exervcises 5. Keep dressing on drain site until closed 6. Ok to sleep on your side if no pain, keep knees bent 7. Call for any concerns of infection ,increased, swelling, pain, redness, fever, and chills 8. Ok to shower in 24 hours 9. Ok to travel in 2 weeks if feeling well, and when remaining drain is removed 10. Ok to fly, wear compression stockings and try to take occasional walks documented in this encounter Progress Notes Ekaterina Rivera APRN - 03/18/2014 10:54 AM EST Plastic Surgery Post Op Note Reason for visit: F/U status post procedure Date of surgery: 03/06/14 Procedure(s): panniculectomy Complications: None reported Pain: 310 HPI: Pt reports she has been well since her procedure. Her VNA had concerns regarding the milky the color of her drain output. She reports she did too much Sunday, and Sunday and was very sore afterwards. She is feeling much better today. She has been monitoring her drain output the left drain has dropped down under 30 cc per day. The right drain remains > 100 cc per day. She reports her VNA will remove the drain when it is ready if they have the orders. She reports she has been having trouble sleeping, and staying asleep at night. She has a lot of discomfort in the upper portion of abdomen Examination: Patient is alert, conversant, comfortable, ambulating Incision: well approximated, CDI, healing well. Umbilicus in viable, incisions well approximated, erythema surround the sutures. Not spreading. No collection, no erythema, no evidence of cellulitis. Drain sites are erythematous immediately surrounding the drain sites Left drain removed today. Right drain remains in place with milky pink drainage. Consistent with lysed fat. Impression: Kiya Cummings is a 64 y.o. female who was seen today for follow-up after the above procedure. Please see the operative note for details. She is doing well without complaints. I instructed her on post operative care and restrictions. I advised her to call the clinic with any concerns. She can send photos via EDH of anything concerning. I discussed that since she has a prior history of a DVTshe is at an elevated risk of developing a blood clot post operatively. Flying will also increase this risk. She was instructed on post operative travel precautions. Plan: 1. Follow up:6 weeks post op 2. Maintain support garments, once last drain is removed ok to transition to a light support garment 3. Continue to monitor drain output, ok for VNA when drain output is < 30 cc for 2 consecutive days 4. Ok to go on short walks,and go up and down stairs, no lifting > 5 lbs- 10 lbs, no abdominal based exervcises 5. Keep dressing on drain site until closed 6. Ok to sleep on your side if no pain, keep knees bent 7. Call for any concerns of infection ,increased, swelling, pain, redness, fever, and chills 8. Ok to shower in 24 hours 9. Ok to travel in 2 weeks if feeling well, and when remaining drain is removed 10. Ok to fly, wear compression stockings and try to take occasional walks Dr. Vance in to examine patient. He agrees with this assessment and plan. I, Olga Whitlock, am acting as scribe for Ekaterina Rivera. All work documented was performed by Ekaterina Rivera. ???I performed the above scribed service and agree with the accuracy of the note?? Ekaterina Rivera APRN documented in this encounter Plan of Treatment Upcoming Encounters Date Type Specialty Care Team Description 11/24/2021 Office Visit Neurology Gregg Lacy MD [place], [place] [address] (Tulio raymond) 04/06/2022 Appointment Radiology 04/06/2022 Office Visit Orthopaedics Wally Rouse MD [facility] ORTHOPAEDIC SURG [place], [place] [address] (Tulio raymond) documented as of this encounter Visit Diagnoses Diagnosis Other specified aftercare following surg chente documented in this encounter Care Teams Bilingual Secretary Relationship Specialty Start Date End Date Dallas Rizvi MD PCP - General 02/01/10 02/19/18 [address] [place] [address] documented as of this encounter
--- OUTSIDE RECORDS SUMMARY | 2021-10-13 15:53 | XMS_ITS | Encounter Summary ---
:1950 Author Organization [facility] [place] [address] Care Team Providers Name Role Phone Dallas Rizvi MD Primary Care Provider Encounter Details Date Type Department Care Team Description 06/14/2017 Telephone Pulmonology at [facility] [place] [place] [address] Social History Tobacco Use Types Packs/Day Years Used Date Former Smoker Cigarettes 1 10 Quit: 05/10/18 78 Smokeless Tobacco: Never Used Alcohol Use Standard Drinks/Week Comments No 0 (1 standard drink = 0.6 oz pure alcoho l) Sex Assigned at Date Recorded Female 01/18/2021 7:28 AM EST documented as of this encounter Miscellaneous Notes Telephone Encounter - Clara Carter - 06/15/2017 11:17 AM EDT The patient came to the Exit desk. The appropriate Radiology Safety questions were asked and the patient was scheduled for her CT scan. documented in this encounter Plan of Treatment Upcoming Encounters Date Type Specialty Care Team Description 11/24/2021 Office Visit Neurology Gregg Lacy MD [place], [place] [address] (Wo rk) 04/06/2022 Appointment Radiology 04/06/2022 Office Visit Orthopaedics Wally Rouse MD [facility] ORTHOPAEDIC SURG [place], [place] [address] (Wo rk) documented as of this encounter Visit Diagnoses Not on filedocumented in this encounter Care Teams Materials Scientist Relationship Specialty Start Date End Date Dallas Rizvi MD PCP - General 02/01/10 02/19/18 [address] [place] [address] documented as of this encounter
--- OUTSIDE RECORDS SUMMARY | 2021-10-13 15:53 | XMS_ITS | Encounter Summary ---
:1950 Author Organization [facility] [place] [address] Care Team Providers Name Role Phone Unknown Primary Care Provider Unavailable Encounter Details Date Type Department Care Team Description 05/20/2018 Telephone Weight and Wellness at [facility] Torsten Guevara [address] [place] [address] Social History Tobacco Use Types Packs/Day Years Used Date Former Smoker Cigarettes 1 10 Quit: 05/10/18 73 Smokeless Tobacco: Never Used Alcohol Use Standard Drinks/Week Comments No 0 (1 standard drink = 0.6 oz pure alcoho l) Sex Assigned at Date Recorded Female 01/18/2021 7:28 AM EST documented as of this encounter Miscellaneous Notes Telephone Encounter - Torsten Guevara - 05/20/2018 4:39 PM EDT Called to reblana cancelled appointment cited in patient email. documented in this encounter Plan of Treatment Upcoming Encounters Date Type Specialty Care Team Description 11/24/2021 Office Visit Neurology Gregg Lacy MD [place], [place] [address] (Wo rk) 04/06/2022 Appointment Radiology 04/06/2022 Office Visit Orthopaedics Wally Rouse MD [facility] ORTH[facility]IC SURG [place], [place] [address] (Wo rk) documented as of this encounter Visit Diagnoses Not on filedocumented in this encounter Care Teams Dining Room Hostess Relationship Specialty Start Date End Date Unknown PCP - General 02/20/18 06/24/18 None documented as of this encounter
--- OUTSIDE RECORDS SUMMARY | 2021-10-13 15:53 | XMS_ITS | Encounter Summary ---
:1950 Author Organization [facility] [place] [address] Care Team Providers Name Role Phone Dallas Rizvi MD Primary Care Provider Encounter Details Date Type Department Care Team Description 03/10/2014 Orders Only Plastic Surgery at [facility] Criss Velásquez, [place] [address] Social History Tobacco Use Types Packs/Day [...] 11/24/2021 Office Visit Neurology Gregg Lacy MD [place], [place] [address] (Wo rk) 04/06/2022 Appointment Radiology 04/06/2022 Office Visit Orthopaedics Wally Rouse MD [facility] ORTHOPAEDIC SURG [place], [place] [address] (Wo rk) documented as of this encounter Visit Diagnoses Not on filedocumented in this encounter Care Teams Educational Psychology Professor Relationship Specialty Start Date End Date Dallas Rizvi MD PCP - General 02/01/10 02/19/18 [address] [place] [address] documented as of this encounter
--- OUTSIDE RECORDS SUMMARY | 2021-10-13 15:53 | XMS_ITS | Encounter Summary ---
:1950 Author Organization [facility] [place] [address] Care Team Providers Name Role Phone Dallas Rizvi MD Primary Care Provider Encounter Details Date Type Department Care Team Description 11/23/2015 Hospital Encounter Radiology Library at Aisha Rizvi, [facility] [address] [place] [address] [place] [address] [phone] Social History Tobacco Use Types Packs/Day Years [...] Sig Dispensed Refills Start Date End Date lansoprazole (PREVACID) 15 Take 15 mg by mouth 0 02/15/2017 mg Capsule, Delayed daily. Release(E.C.) buPROPion (WELLBUTRIN XL) Take 150 mg by 0 06/14/2017 150 mg 24 hr tablet mouth every morning. albuterol (PROVENTIL Inhale 2 puffs into 0 02/15/2017 HFA;VENTOLIN HFA) 90 the lungs every 4 mcg/actuation inhaler hours as needed. Use with spacer montelukast (SINGULAIR) 10 0 7 06/18/2017 mg tablet DESIPRAMINE HCL 0 08/15/2006 7 (DESIPRAMINE ORAL) fexofenadine (MARY JO) 180 0 7 06/25/2018 mg tablet escitalopram (LEXAPRO) 20 0 08/15/2006 02/15/2017 mg tablet levothyroxine (LEVOXYL) 0 08/15/2006 0 06/25/2018 100 mcg tablet documented as of this encounter Plan of Treatment Upcoming Encounters Date Type Specialty Care Team Description 11/24/2021 Office Visit Neurology Gregg Lacy MD [place], [place] [address] (Wo rk) 04/06/2022 Appointment Radiology 04/06/2022 Office Visit Orthopaedics Wally Rouse MD [facility] ORTHOPAEDIC SURG [place], [place] [address] (Wo rk) documented as of this encounter Procedures Procedure Name Priority Date/Time Associated Diagnosis Comme nts FILM LIBRARY Routine 11/23/2015 12:00 AM Results for this STORAGE ONLY CT EDT procedure ar e in CHEST the results section. documented in this encounter Results Film Library- Storage Only CT Chest (11/23/2015 12:00 AM EDT) Specimen (Source) Anatomical Location Collection Method / Collectio n Time Received Time / Laterality Volume Narrative MANDO - 04/02/2017 12:23 PM EST This result has an attachment that is no t available. This exam is for storage only and is aut o-finalizing. Dallas Rizvi MD Cherelle FILM LIBRARY ORDERABLES Performing Organization Address City/State/ZIP Code Phon e Number RAD [place], [place] documented in this encounter Visit Diagnoses Not on filedocumented in this encounter Care Teams Architectural Wood Model Maker Relationship Specialty Start Date End Date Dallas Rizvi MD PCP - General 02/01/10 02/19/18 [address] [place] [address] documented as of this encounter
--- OUTSIDE RECORDS SUMMARY | 2021-10-13 15:53 | XMS_ITS | Encounter Summary ---
:1950 Author Organization [place] [address] Care Team Providers Name Role Phone Dallas Rizvi MD Primary Care Provider Reason for Referral Diagnostic Test (Routine) - Closed Specialty Diagnoses / Procedures Referred By Contact Refer red To Contact Radiology Diagnoses Pulmonary nodules Berry Branham MD [facility] Rad Ct Scan Procedures CT Chest wo Contrast (Generic) [facility] [address] Sh[facility] [place] [address] [place] [address] Referral ID Status Reason Start Date Expiration Date Visits V isits Requested Authorized [id number] Closed Specialty 06/14/2017 06/14/2018 1 1 Service Requested Reason for Visit Reason Comments Follow-up Encounter Details Date Type Department Care Team Description 06/14/2017 Office Visit Pulmonology at [facility] Berry Branham DOE (dyspnea on exertion) (P rimary Dx); [facility] Pulmonary nodules; [facility] Gastroesophageal reflux dise ase, esophagitis presence not specified; [facility] LEONARD treated with BiPAP; [id number] Pulmonary Obesity hypoventilation synd ronnie; [phone] Medicine Morbid obesity with BMI of 40.0-44.9, ad ult; [place], [place] Hx pulmonary em bolism [id number] Social History Tobacco Use Types Packs/Day Years [...] Sign Reading Time Taken Comments Blood Pressure 135/65 06/14/2017 10:26 AM EDT Pulse 71 06/14/2017 10:26 AM EDT Temperature - - Respiratory Rate - - Oxygen Saturation 95% 06/14/2017 10:26 AM EDT Inhaled Oxygen Concentration - - Weight 114 kg (251 lb 6.4 oz) 06/14/2017 10:26 AM EDT Height 160 cm (5' 3) 06/14/2017 10:26 AM EDT Body Mass Index 44.53 06/14/2017 10:26 AM EDT documented in this encounter Patient Instructions Patient InstructionsBerry Branham MD - 06/14/2017 10:30 AM EDT It was great to see you again today. Make an follow up appointment when you check out. Get follow up CT for nodule, not felt to be high risk No concerns about exercise from your stress test, you had very good lung and heart function. Follow up with [facility] Our office phone number is [phone]. If you have not already done so, please consider signing up for myD-H. Directions are included in your after visit summary. Sincerely, Berry Branham PS Thanks for the Syrup!!! documented in this encounter Progress Notes Berry Branham MD - 06/14/2017 10:30 AM EDT Images from the original note were not included. [facility] Section of Pulmonary and Critical Care Medicine Outpatient Consultation Date of Encounter: 06/14/2017 Referring Provider: No referring provider defined for this encounter. Reason for Evaluation: Ms. Kiya Cummings returns to the [facility] today tofollow up dyspnea on exertion. She was last seen 04/18/2017. I independently interviewed and examined the patient in the office and have reviewed available records. History of Present Illness: Has needs a new PCP close [facility]. She has been stable since her last visit with me. On recent trip to [place] she was bicycling more that typical for her and feeling good. Weight is up only slightly. She has [facility] appointment next week. Ms. Cummings needs to find a new PCP closer to her home. She has noted some increased heart burn. She is taking omeprazole 20 mg daily. She asks about medications that she could try to stop and anything that might contributed to fatigue. She completed her CPET without problems. We has discussed venous thromboembolism prophylaxis with aspirin, but she is now taking apixiban forprophylaxis. I reviewed medical, surgical family and social histories and updated the chart as indicated. With respect to history of her dyspnea: I saw on initial consultation 02/15/2017 she characterizes her dyspnea in terms of as cannot get enough air. Her difficulty with dyspnea began in mid November 2016, and has been gradually worsening since onset. She had not had similar shortness of breath in the past and the dyspnea is different than what she had experienced in the past when her asthma was uncontrolled. Her symptoms waxed and waned to some degree with good days and bad days. She had not had any significant exacerbations that have required hospitalization. Related symptoms include occasional wheezing, nonproductive cough and fatigue (probably better characterized as a loss of stamina). She also has a home pulse oximeter and has described oxygen saturations into the 80s with exertion. Recent follow-up at [facility] she was noted to have an elevated d-dimer and a CTA was performed.By report there was no evidence of pulmonary embolism on this study but neither the imaging nor the testing are not available. She also reports having a normal echocardiogram at that time. She denies not describe any preceding events and there have been no changes in medications or acute illness. Beyond exertion, her dyspnea is also triggered by exertion and smoke. Dyspnea is alleviated by rest. As yet she has not been prescribed medications for her dyspnea. Asthma has been under good control with oral montelukast alone. She takes an [id number] antihistamine primarily for pruritus. At baseline she experiences dyspnea on exertion with mild activity which limits exertional toleranceto walking. She does not have limitations in activities of daily living. She currently is on oxygen at 4 L/min via bleed-in with her BiPAP which he uses only at nighttime. She has been followed in the past by [facility]. Other history is notable for an unprovoked pulmonary embolism approximately 5 years ago. Following that she was anticoagulated with warfarin for approximately 1 year. After this anticoagulation was stopped. She did not have any difficulty with bleeding or intolerance of anticoagulation. She has had noknown recurrence of DVT or pulmonary embolism. Ms. Cummings reports that she quit smoking about 39 years ago. Her smoking use included Cigarettes. She has a 10.00 pack-year smoking history. She has never used smokeless tobacco. She does not have a prior history of bronchiectasis, chronic bronchitis, emphysema or pneumonia. She does not have known coronary artery disease or cardiomyopathy. She does describe gradual weight gain over the last several years at a rate of approximately 2 pounds a week. She attributes this to excess dietary calories. In the past she was successful losing weight loss with dietary modifications. She does not have a personal or family history of diabetes. Ms. Cummings describes progressive development of knee pain that is also limiting her ability to exert herself.She vacations in [place] she often arrives 3-wheel bicycle around and is more active. Past Medical and Surgical History: Past Medical History: Diagnosis Date ??? Allergy 1979 sulfur and 2013 sipro ??? Asthma 1978 Mild intermittant ??? Cataract ??? Diverticulitis 2005 ??? ENT disease 2009 tinnitus ??? GERD (gastroesophageal reflux disease) ??? Hypothyroid ??? Mental or behavioral problem 2000 depression ??? Musculoskeletal disease 2000 arthritis in hands and toes ??? Pulmonary embolism 2011 ??? Pulmonary nodules ??? Urinary disorder 1985 bladder infections ??? Varicose veins of left lower extremities Past Surgical History: Procedure Laterality Date ??? PRO EXCISE EXCESS SKIN TISSUE, ABDOMEN N/A 03/06/2014 ABDOMINOPLASTY performed by Marcos Vance MD at [facility] OR ??? PRO UNLISTED PROCEDURE, MUSCULOSKELETAL SYSTEM, GENERAL both shouloders rotater cuff ??? PRO UNLISTED PX FEMALE GEN SYS 1994 1981 prolapse hysterectomy ??? VASCULAR SURGERY 1989 varicose veins both legs Family History: Family History Problem (# of Occurrences) Relation (Name,Age of Onset) Alcohol Abuse (1) Sister (Vickie/Cha) Cancer (2) Mother (Opal), Brother Coronary Artery Disease (1) Mother (Opal) Heart Disease (2) Mother (Opal), Father High Blood Pressure (1) Mother (Opal) Thrombophilia (1) Mother (Opal) Social and Occupational History: Social History Social History ??? Marital status: Spouse name: N/A ??? Number of children: N/A ??? Years of education: N/A Social History Main Topics ??? Smoking status: Former Smoker Packs/day: 1.00 Years: 10.00 Types: Cigarettes Quit date: 05/10/1977 ??? Smokeless tobacco: Never Used ??? Alcohol use No ??? Drug use: No ??? Sexual activity: Not Asked Other Topics Concern ??? Exercise: Patient Reported No ??? Abuse Or Threat: Physical, Sexual, Verbal No Social History Narrative Ms. Cummings lives in [place], [place] with her . 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 She has prior history of radon exposure but this is since been mitigated in her home. She has not had 6 significant occupational exposures to dusts or fumes although there is an incidental exposures or work. She has 2 adult children. She and her frequently winter in [place].04/18/2017 Current Medications: ??? rOPINIRole (REQUIP) 1 mg Tablet ??? ELIQUIS 2.5 mg Tablet ??? buPROPion (WELLBUTRIN) 100 mg Tablet ??? omeprazole 20 mg Tablet, Delayed Release (E.C.) ??? venlafaxine (EFFEXOR-XR) 75 mg Capsule, Sust. Release 24 hr ??? montelukast (SINGULAIR) 10 mg tablet ??? fexofenadine (MARY JO) 180 mg tablet ??? levothyroxine (LEVOXYL) 100 mcg tablet Adverse Drug Reactions: Allergies Allergen Reactions ??? Sulfa (Sulfonamide Antibiotics) Hives Review of Systems: An 11-point ROS was negative except per the HPI. Physical Examination: BP 135/65 Pulse 71 Ht 160 cm (5' 3) Wt 114 kg (251 lb 6.4 oz) SpO2 95% BMI 44.53 kg/m2 Physical Exam Constitutional: She is oriented to person, place, and time. She appears well- developed and well-nourished. No distress. HENT: Head: Normocephalic and atraumatic. Mouth/Throat: Oropharynx is clear and moist. No oropharyngeal exudate. Eyes: Conjunctivae are normal. Pupils are equal, round, and reactive to light. Neck: No JVD present. No tracheal deviation present. Cardiovascular: Normal rate, regular rhythm and normal heart sounds. Exam reveals no gallop and no friction rub. No murmur heard. Pulmonary/Chest: Effort normal. No respiratory distress. She has no wheezes. She has no rales. She exhibits no tenderness. Musculoskeletal: She exhibits no edema. Neurological: She is alert and oriented to person, place, and time. Skin: Skin is warm, dry and intact. No cyanosis. Nails show no clubbing. Psychiatric: She has a normal mood and affect. Her speech is normal and behavior is normal. Labs: I personally reviewed relevant laboratory results which were significant for hemoglobin of 15.1. Renal function was normal. Plasma CO2 was elevated at 28. NT proBNP was 19. Previously on 02/15/17 the d-dimer was 970 ng/mm. Total IgE was 255 kU/L. Imaging: I reviewed prior CT imaging now available. Variable nodule in right mid-lung. Favor no neoplastic etiology. Suspect inter fissural node. If stable not inclined to followed up. There is a second nodule in the right middle lobe that appears to have grown. I am suspicious this may be a vascular structure. Will repeat CT as recommend. Pulmonary Function Tests: Date FVC FEV1 Ratio TLC RV RV/TLC ERV DLCO 6MWT 01/02/17 2.97 97% 2.47 106% 0.83 4.59 94% 1.55 84% 0.34 90% 0.47 55% 20.62 100% Previously, I personally reviewed flow-volume loops and other tests. Results are most consistent with normal physiology. No diffusion impairment present. These are similar to past PFTs. The low ERV is typical for body mass index 41.6 kg/(m^2). Tidal breathing loops impinge upon for sleep which is typical in patients with low ERV. CPET 05/18/2017: I personally reviewed study. In variance with the report, her respiratory reserve wasat 0% at peak exercise, but normal when compared to predicted MVV. Her VO2 max was normal when adjusted for adjusted ideal and ideal body weight, but low when adjusted for actual body weight. There wasno hypoxemia. Good heart rate and oxygen pulse response. Echocardiogram: 12/30/2016 Estimated LVEF greater than 70% right ventricular function was normal. RVSP was estimated at 30 mmHgthe mitral valve E/A ratio 0.96. Impression and Plan of Care: This is a middle-aged woman with history of mild asthma, unprovoked pulmonary embolism seen today for dyspnea on exertion in setting of BMI of 44 kg/(m^2). 1. ROMO (dyspnea on exertion) Very reassuring CPET with good physiologic response. The breathing reserve was probably low and ventilatory limitation are common in morbid obesity. There was evidence of good cardiac and pulmonary vascular function. There was also evidence of physical deconditioning. We dicussed that there was not evidence to think vigorous exercise would be a risk factor for her. I also discussed my assessment thather exercise capacity would improve with condition and weight loss. Okay to do trial off montelukast, can resume if increased itching and/or dyspnea. 2. Pulmonary nodules Favor non-neoplastic etiology. Will repeat CT for follow up. - CT Chest wo Contrast (Generic); Future 3. Gastroesophageal reflux disease, esophagitis presence not specified Continue PPI, but do high dose for 4 weeks then return to 20 mg daily. 4. LEONARD treated with BiPAP 5. Obesity hypoventilation syndrome Contiue BiPAP and oxygen for sleep. We did not reproduce hypoxemia noted in another recent outpatient encounter. 6. Morbid obesity with BMI of 40.0-44.9, adult [facility]. 7. Hx pulmonary embolism Continue on anticoagulation with apixaban and prevention dosing. Return to clinic in 3 months Berry Branham MD, PhD N [facility] AT [facility] [id number] Dept: [phone] Loc: [phone] documented in this encounter Plan of Treatment Upcoming Encounters Date Type Specialty Care Team Description 11/24/2021 Office Visit Neurology Gregg Lacy MD [facility] [place], [place] [address] (Wo rk) 04/06/2022 Appointment Radiology 04/06/2022 Office Visit Orthopaedics Wally Rouse MD [facility] ORTHOPAEDIC SUR[facility] [place], [place] [address] (Wo rk) documented as of this encounter Results CT Chest wo Contrast (Generic) (06/18/2017 4:46 PM EDT) Anatomical Region Laterality Modality Chest Computed Tomography Specimen (Source) Anatomical Location Collection Method / Collectio n Time Received Time / Laterality Volume Impressions 06/18/2017 5:02 PM EDT Pulmonary nodules consistent with intrapulmonary lymph nodes, including the right middle lobe intrapulmonary lymph n odes that are smaller on today's study, including the previously described right middle lobe nodule. However, a 5 mm right lower lobe nodule is not previousl y seen on prior, due to shallower inspiration/dependent atelectasis at tayler t time. Statistically this is also likely to be an intrapulmonary lymph nod e, and per 2017 updated Fleischner Society guidelines, unless the patient i s in a high risk category, no further follow-up CT recommended for nodule of t his size. Narrative 06/18/2017 5:02 PM EDT EXAMINATION: CT CHEST WO CONTRAST (GENERIC) CLINICAL HISTORY: Nodule follow up TECHNIQUE: 2.5 mm thick axial contiguous sections were obtained through the chest via helical acquisition without in travenous contrast administration using low radiation dose technique. Thin-secti on reconstructions as well as coronal and sagittal reformatted images were gen erated. COMPARISON: 12/15/2016 at [facility]. FINDINGS: Pulmonary parenchyma: [place] juxtafissur al nodules in the right lung measuring 10 mm and 7 mm on series 4 images 58 and 64, respectively, consistent with intrapulmonary lymph nodes are less prom inent than on prior. Two 5 mm oblong juxta fissural nodules, also consistent with intrapulmonary lymph node seen on the left. Peripheral 5 mm and 4 mm nodules in the right lower lobe and left lower lobe, respectively, on series 4 images 71 and 78, favored to be lymph nodes, the former not well seen on prior, the latte r unchanged. The right middle lobe nodule which was d escribed as being approximately 6 to 7 mm on prior, but 3 to 4 mm on the study preceding that, now measures 4 mm on series 4 image 71 and appears triangular on coronal reconstruction series 601 image 39, consistent with an intrapulmon basim lymph node. Unchanged linear scarring or atelectasis in the medial right middle lobe and ventrally in the left lower lobe. Mild p araspinal scarring in the right lower lobe adjacent to vertebral body endplate osteophytes. Airways: No endobronchial opacities. Pleura: No pleural effusion. Lymph nodes:No appreciable thoracic lymp hadenopathy within limits of noncontrast technique. Heart, pericardium, and great vessels: M ild aortic arch and coronary atherosclerotic calcification. No perica rdial effusion. Other mediastinal structures: Tiny hiata l hernia. Lower neck: No significant findings with in limits of noncontrast low radiation dose technique. Upper abdomen: No significant findings w ithin limits of noncontrast low radiation dose technique. Skeletal structures: No significant find ings. Procedure Note Anaya Alarcon MD - 06/18/2017Formatt ing of this note might be different from the original. EXAMINATION: CT CHEST WO CONTRAST (GENER IC) CLINICAL HISTORY: Nodule follow up TECHNIQUE: 2.5 mm thick axial contiguous sections were obtained through the chest via helical acquisition without in travenous contrast administration using low radiation dose technique. Thin-secti on reconstructions as well as coronal and sagittal reformatted images were gen erated. COMPARISON: 12/15/2016 at [facility]. FINDINGS: Pulmonary parenchyma: [place] juxtafissur al nodules in the right lung measuring 10 mm and 7 mm on series 4 images 58 and 64, respectively, consistent with intrapulmonary lymph nodes are less prom inent than on prior. Two 5 mm oblong juxta fissural nodules, also consistent with intrapulmonary lymph node seen on the left. Peripheral 5 mm and 4 mm nodules in the right lower lobe and left lower lobe, respectively, on series 4 images 71 and 78, favored to be lymph nodes, the former not well seen on prior, the latte r unchanged. The right middle lobe nodule which was d escribed as being approximately 6 to 7 mm on prior, but 3 to 4 mm on the study preceding that, now measures 4 mm on series 4 image 71 and appears triangular on coronal reconstruction series 601 image 39, consistent with an intrapulmon basim lymph node. Unchanged linear scarring or atelectasis in the medial right middle lobe and ventrally in the left lower lobe. Mild p araspinal scarring in the right lower lobe adjacent to vertebral body endplate osteophytes. Airways: No endobronchial opacities. Pleura: No pleural effusion. Lymph nodes:No appreciable thoracic lymp hadenopathy within limits of noncontrast technique. Heart, pericardium, and great vessels: M ild aortic arch and coronary atherosclerotic calcification. No perica rdial effusion. Other mediastinal structures: Tiny hiata l hernia. Lower neck: No significant findings with in limits of noncontrast low radiation dose technique. Upper abdomen: No significant findings w ithin limits of noncontrast low radiation dose technique. Skeletal structures: No significant find ings. IMPRESSION Pulmonary nodules consistent with intrap ulmonary lymph nodes, including the right middle lobe intrapulmonary lymph n odes that are smaller on today's study, including the previously described right middle lobe nodule. However, a 5 mm right lower lobe nodule is not previousl y seen on prior, due to shallower inspiration/dependent atelectasis at tayler t time. Statistically this is also likely to be an intrapulmonary lymph nod e, and per 2017 updated Fleischner Society guidelines, unless the patient i s in a high risk category, no further follow-up CT recommended for nodule of t his size. Berry Branham MD IMG CT ORDERABLES documented in this encounter Visit Diagnoses Diagnosis ROMO (dyspnea on exertion) - Primary Other dyspnea and respiratory abnormalit y Pulmonary nodules Other nonspecific abnormal finding of gilmer ng field Gastroesophageal reflux disease, esophag itis presence not specified LEONARD treated with BiPAP Obesity hypoventilation syndrome Morbid obesity with BMI of 40.0-44.9, ad ult Morbid obesity Hx pulmonary embolism Personal history of pulmonary embolism Pulmonary nodules Other nonspecific abnormal finding of gilmer ng field documented in this encounter Care Teams Proof Reader Relationship Specialty Start Date End Date Dallas Rizvi MD PCP - General 02/01/10 02/19/18 [address] [place] [address] documented as of this encounter
--- OUTSIDE RECORDS SUMMARY | 2021-10-13 15:53 | XMS_ITS | Encounter Summary ---
:1950 Author Organization [facility] [place] [address] Care Team Providers Name Role Phone Dallas Rizvi MD Primary Care Provider Reason for Referral Diagnostic Test (Routine) - Closed Specialty Diagnoses / Procedures Referred By Contact Refer red To Contact Radiology Diagnoses Pulmonary nodules Berry Branham MD [facility] Rad Ct Scan Procedures CT Chest wo Contrast (Generic) [facility] Pulmonary Medicine [place] [phone] [place] [address] Referral ID Status Reason Start Date Expiration Date Visits V isits Requested Authorized [id number] Closed Specialty 06/14/2017 06/14/2018 1 1 Service Requested Reason for Visit Diagnostic Test (Routine) - Closed Specialty Diagnoses / Procedures Referred By Contact Refer red To Contact Radiology Diagnoses Pulmonary nodules Berry Branham MD [facility] Rad Ct Scan Procedures CT Chest wo Contrast (Generic) [facility] [place] [address] [place] [address] Referral ID Status Reason Start Date Expiration Date Visits V isits Requested Authorized [id number] Closed Specialty 06/14/2017 06/14/2018 1 1 Service Requested Encounter Details Date Type Department Care Team Description 06/18/[address] Scan at [facility] Berry Branham, Pulmonary nodules [facility] Medical [place] [facility] [id number] Pulmonary [phone] [place], [place] [address] Social History Tobacco Use Types [...] Sig Dispensed Refills Start Date End Date ascorbic acid, vitamin C, Take 500 mg by 0 (VITAMIN C) 500 mg Tablet mouth daily. ferrous sulfate 325 mg (65 Take 325 mg by 0 10/02/2017 mg iron) Tablet mouth daily (with breakfast). rOPINIRole (REQUIP) 1 mg TAKE 1 TABLET BY 0 06/1011/19/2017 Tablet MOUTH 2 TO 3 HOURS BEFORE BED ELIQUIS 2.5 mg Tablet Take 2.5 mg by 1 05/10/2017 11/08/2020 mouth 2 times daily. buPROPion (WELLBUTRIN) 100 Take 200 mg by 0 02/2702/18/2018 mg Tablet mouth daily. omeprazole 20 mg Tablet, Take 2 tablets by 60 tablet 0 07/201706/25/2018 Delayed Release (E.C.) mouth daily. venlafaxine (EFFEXOR-XR) 150 mg. 0 12/28/2016 10/02/2017 75 mg Capsule, Sust. Release 24 hr fexofenadine (MARY JO) 180 0 7 06/25/2018 mg tablet levothyroxine (LEVOXYL) 0 08/15/2006 0 06/25/2018 100 mcg tablet documented as of this encounter Plan of Treatment Upcoming Encounters Date Type Specialty Care Team Description 11/24/2021 Office Visit Neurology Gregg Lacy MD [facility] [place] [address] (Wo rk) 04/06/2022 Appointment Radiology 04/06/2022 Office Visit Orthopaedics Wally Rouse MD [facility] ORTHOPAEDIC SURG [place], [place] [address] (Wo rk) documented as of this encounter Procedures Procedure Name Priority Date/Time Associated Diagnosis Comme nts CT CHEST WO Routine 06/18/2017 4:46 PM Pulmonary nodules Resu lts for this CONTRAST (GENERIC) EDT procedure are in the results section. documented [...] images were gen erated. COMPARISON: 12/15/2016 at [facility]. FINDINGS: Pulmonary parenchyma: [place] juxtafissur al nodules in the right lung [...] images were gen erated. COMPARISON: 12/15/2016 at [facility]. FINDINGS: Pulmonary parenchyma: [place] juxtafissur al nodules in the right lung [...] documented in this encounter Visit Diagnoses Diagnosis Pulmonary nodules Other nonspecific abnormal finding of gilmer ng field documented in this encounter Care Teams Institute Director Relationship Specialty Start Date End Date Dallas Rizvi MD PCP - General 02/01/10 02/19/18 [address] [place] [address] documented as of this encounter
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
--- OUTSIDE RECORDS SUMMARY | 2021-10-13 15:53 | XMS_ITS | Encounter Summary ---
:1950 Author Organization [facility] [place] [address] Care Team Providers Name Role Phone Dallas Rizvi MD Primary Care Provider Encounter Details Date Type Department Care Team Description 09/16/2017 Ancillary Procedure Radiology Library at [place], Areli Cruz [facility] [place] [address] [place] [address] [phone] (Wo rk) Social History Tobacco Use Types [...] 11/24/2021 Office Visit Neurology Gregg Lacy MD [place], [place] [address] (Wo rk) 04/06/2022 Appointment Radiology 04/06/2022 Office Visit Orthopaedics Wally Rouse MD [facility] ORTHOPAEDIC SURG [place], [place] [address] (Wo rk) documented as of this encounter Procedures Procedure Name Priority Date/Time Associated Diagnosis Comme nts FILM LIBRARY Routine 09/16/2017 12:00 AM Results for this STORAGE ONLY CT EDT procedure ar e in ABDOMEN AND PELVIS the resul ts section. documented in this encounter Results Film Library- Storage Only CT Abdomen & Pelvis (09/16/2017 12:00 AM EDT) Specimen (Source) Anatomical Location Collection Method / Collectio n Time Received Time / Laterality Volume Narrative [facility] - 02/27/2018 4:22 PM EST This exam is for storage only and is aut o-finalizing. Florida Marsh MD IMG FILM LIBRARY ORDERABLES Performing Organization Address City/State/ZIP Code Phon e Number [place], [place] documented in this encounter Visit Diagnoses Not on filedocumented in this encounter Care Teams Repairer [employer] Relationship Specialty Start Date End Date Dallas Rizvi MD PCP - General 02/01/10 02/19/18 [address] [place] [address] documented as of this encounter
--- OUTSIDE RECORDS SUMMARY | 2021-10-13 15:53 | XMS_ITS | Encounter Summary ---
:1950 Author Organization [facility] [place] [address] Care Team Providers Name Role Phone Unknown Primary Care Provider Unavailable Encounter Details Date Type Department Care Team Description 08/13/2017 Office Visit Weight and Wellness Florida Marsh, Imp aired fasting glucose; at [facility] Morbid obesity with BMI of 40.0-44.9, ad ult; [address] [facility] [place] [address] [place] [address] [phone] Social History Tobacco Use Types Packs/Day Years [...] Sign Reading Time Taken Comments Blood Pressure 118/63 08/13/2017 8:53 AM EDT Pulse 69 08/13/2017 8:53 AM EDT Temperature - - Respiratory Rate 18 08/13/2017 8:53 AM EDT Oxygen Saturation 96% 08/13/2017 8:53 AM EDT Inhaled Oxygen Concentration - - Weight 113.4 kg (250 lb) 08/13/2017 8:53 AM EDT Height 161.3 cm (5' 3.5) 08/13/2017 8:53 AM EDT Body Mass Index 43.59 08/13/2017 8:53 AM EDT documented in this encounter Patient Instructions Patient InstructionsFlorida Marsh MD - 08/13/2017 9:17 AM EDT Images from the original note were not included. Plan to see our dietitian and health wellness health coach in the next 2-4 weeks. Increase metformin to 500 mg twice daily with food--prescription sent to [facility] (let Dr Marsh know if this does not go through, as it recently switched to [facility]) GOALS ?? Dietary changes: Continue to limit sweets and reduce portion sizes ?? Exercise: Walk 10 minutes/day, 3 days/week (more as able!), increasing by a minute or two every week Follow up with Dr Marsh as needed--please call the clinic to arrange. Prediabetes: Care Instructions Your Care Instructions Prediabetes is a warning sign that you are at risk for getting type 2 diabetes. It means that your blood sugar is higher than it should be. The food you eat turns into sugar, which your body uses for energy. Normally, an organ called the pancreas makes insulin, which allows the sugar in your blood to get into your body's cells. But when your body can't use insulin the right way, the sugar doesn't move into cells. It stays in your blood instead. This is called insulin resistance. The buildup of sugarin the blood causes prediabetes. The good news is that lifestyle changes may help you get your blood sugar back to normal and help you avoid or delay diabetes. Follow-up care is a lewis part of your treatment and safety. Be sure to make and go to all appointments, and call your doctor if you are having problems. It's also a good idea to know your test results and keep a list of the medicines you take. How can you care for yourself at home? ?? Watch your weight. A healthy weight helps your body use insulin properly. ?? Limit the amount of calories, sweets, and unhealthy fat you eat. Ask your doctor if you should see a dietitian. A registered dietitian can help you create meal plans that fit your lifestyle. ?? Get at least 30 minutes of exercise on most days of the week. Exercise helps control your blood sugar. It also helps you maintain a healthy weight. Walking is a good choice. You also may want to do other activities, such as running, swimming, cycling, or playing tennis or team sports. ?? Do not smoke. Smoking can make prediabetes worse. If you need help quitting, talk to your doctor about stop-smoking programs and medicines. These can increase your chances of quitting for good. ?? If your doctor prescribed medicines, take them exactly as prescribed. Call your doctor if you think you are having a problem with your medicine. You will get more details on the specific medicines your doctor prescribes. When should you call for help? Watch closely for changes in your health, and be sure to contact your doctor if: ? ?? You have any symptoms of diabetes. These may include: ?? Being thirsty more often. ?? Urinating more. ?? Being hungrier. ?? Losing weight. ?? Being very tired. ?? Having blurry vision. ? ?? You have a wound that will not heal. ? ?? You have an infection that will not go away. ? ?? You have problems with your blood pressure. ? ?? You want more information about diabetes and how you can keep from getting it. Where can you learn more? Visit our health information library at [email or web address]. You can also view health information on [employer], your personal patient account. Log in or sign up today. Enter I222 in the search box to learn more about Prediabetes: Care Instructions. Current as of: May 22, 2016 Content Version: 11.4 ?? [id number] [employer]. Care instructions adapted under license by [facility]. If you have questions about a medical condition or this instruction, always ask your healthcare professional. [employer] disclaims any warranty or liability for your use of this information. documented in this encounter Progress Notes Florida Marsh MD - 08/13/2017 9:00 AM EDT [facility] Visit Patient Name: Kiya Cummings Date of : 1950 Age: [address] Dallas Rizvi MD Thank you for referring Kiya Cummings to the [facility] for consultation regardingobesity. CHIEF COMPLAINT: Follow-up for Obesity INTERVAL HISTORY / PROGRESS TOWARD GOALS: [x] I reviewed past / interim records including notes and labs. Last seen by me on 06/18/17. Recently switched from the Healthy Lifestyles Program to the medical management program. Weight has decreased 5 pounds since our last visit. She recently returned from a two-week visit to [place]; she reports she did lots of walking throughoutthe vacation. She has recently started walking on her treadmill, and is trying to work up to 30 minutes/day--she is currently doing 10 minutes/day. In terms of dietary changes, she has reduced intake of chips, sweets, and is trying to reduce bread intake. She is also trying to eat smaller portions. Labs were notable for a hemoglobin A1c of 6.1% and a vitamin D level of 24 ng/mL. She was subsequently started on metformin 500 mg PO daily, which she reports she is tolerating. 24 hour diet recall: - Breakfast: Protein shake and banana - Lunch: Cheese and rye bread sandwich - Dinner: Leftover breaded, fried chicken, green beans - Snacks: None - Drinks: Water, seltzer, 20 oz Pepsi - Dessert: Canned peaches in light syrup PREVIOUS LABS: Lab Results Component Value Date CHLPL 160 06/18/2017 Lab Results Component Value Date HDL 44 06/18/2017 No results found for: LDLCHOL No results found for: TRIG Lab Results Component Value Date CHOLHDL 3.6 06/18/2017 Lab Results Component Value Date HA1C 6.1 (H) 06/18/2017 No results found for: GLUCFASTING Lab Results Component Value Date AST 21 06/18/2017 ALT 18 06/18/2017 [facility] Followup Responses 06/15/2017 URICA - Readiness Score 11.66 WEL-SF Total Scores 32 PROMIS 6B Scores 40.2 PHQ-2 SubScore 2 (Brief screen negative) GAD2 Subscore 2 (Brief screen negative) PROMIS 10 Physical Scores 42.3 PROMIS 10 Mental Scores 43.5 IPAQ - SF Scores 3 Total REAP-S Scores 34 TFEQ - Uncontrolled Eating (UE) 62.96 TFEQ-Cognitive Restraint (CR) 44.33 TFEQ-Emotional Eating 66.66 Days absent from work/school because of weight 1-3 REVIEW OF SYSTEMS: see above HPI for additional pertinent +/- findings Constitutional: NL appetite and energy. No daytime tiredness. CV: No chest pain or discomfort, no palpitations. RESP: No new shortness of breath at rest, cough, or wheezing. VITAL SIGNS: Vitals: 08/13/17 0853 BP: 118/63 Pulse: 69 Resp: 18 SpO2: 96% Weight: 113.4 kg (250 lb) Height: 161.3 cm (5' 3.5) Body mass index is 43.59 kg/(m^2). Last 5 weight values: Wt Readings from Last 5 Encounters: 08/13/17 113.4 kg (250 lb) 06/18/17 116.1 kg (255 lb 14.4 oz) 06/14/17 114 kg (251 lb 6.4 oz) 04/18/17 111.1 kg (245 lb) 02/15/17 (!) 113.4 kg (250 lb) PHYSICAL EXAM: Gen: Alert and active, NAD. + central adiposapthy Skin: Warm, pink, no rashes HEENT: NC/AT, EOMI, clear conjunctiva, MMM Neck: supple and thick Neuro: Alert and oriented Psych: NL affect today SUMMARY OF VISIT AND RECOMMENDATIONS: Kiya Cummings was seen in follow up today and an updated medical, diet and activity review was completed. Additional goals were set for changes in health habits (see below) as was a plan for evaluation and treatment of obesity related co-morbidities. Medical issues and plan: Class III Obesity: ?? Medical Management: The patient is currently participating in the Medical Management Pathway at the [facility], after finding that weekly visits as part of the Healthy Lifestyles Program were too time-intensive. She also declines further participation in the ACTion group, as the frequent appointments werealso too time-intensive. She is pleased by her progress, and is interested in meeting with our dietitian to discuss ongoing dietary changes and with our health coaches for additional support and tips. ?? Goal setting: ?? Dietary changes: Continue to limit sweets and reduce portion sizes ?? Exercise: Walk 10 minutes/day, 3 days/week (more as able!), increasing by a minute or two every week ?? Follow-up: Per her request, will schedule intake appointment with our dietitian and health wellness health coach Impaired fasting glucose: ?? Nutrition and activity recommendations to promote healthy weight ?? Medical management recommendations: I agree with the use of metformin in this patient as this drug promotes weight loss. Plan to increase metformin to 500 mg twice a day with meals. If further treatment is indicted, would avoid sulfonylureas and insulin if possible and opt for GLP-1 agonists for the synergistic weight loss effect. LEONARD: ?? Continue BiPAP as prescribed Vitamin D deficiency: Level of 24 ng/mL ?? Continue replacement and consider repeating level after 3 months F/u: Per her preference, to be determined based on schedule and ongoing needs I spent a total of 22 minutes with the patient 18 minutes of which were spent in [id number] discussion/counseling re obesity, nutrition and activity as well as obesity related co-morbidities documented in this encounter Plan of Treatment Upcoming Encounters Date Type Specialty Care Team Description 11/24/2021 Office Visit Neurology Gregg Lacy MD [place], [place] [address] (Wo mandi) 04/06/2022 Appointment Radiology 04/06/2022 Office Visit Orthopaedics Wally Rouse MD [facility] ORTHOPAEDIC SURG [place], [place] [address] (Tulio raymond) documented as of this encounter Visit Diagnoses Diagnosis Impaired fasting glucose Morbid obesity with BMI of 40.0-44.9, ad ult Morbid obesity Vitamin D deficiency Unspecified vitamin D deficiency documented in this encounter Care Teams Public Health Dentist Relationship Specialty Start Date End Date Unknown PCP - General 02/20/18 06/24/18 None documented as of this encounter
--- OUTSIDE RECORDS SUMMARY | 2021-10-13 15:53 | XMS_ITS | Encounter Summary ---
:1950 Author Organization [facility] [place] [address] Care Team Providers Name Role Phone Dallas Rizvi MD Primary Care Provider Encounter Details Date Type Department Care Team Description 12/15/2016 Hospital Encounter Radiology Library at Vivian Branham MD [facility] [place] [address] [place] [address] [phone] (Wo rk) Social History Tobacco Use Types [...] 11/24/2021 Office Visit Neurology Gregg Lacy MD [place], [place] [address] (Wo rk) 04/06/2022 Appointment Radiology 04/06/2022 Office Visit Orthopaedics Wally Rouse MD [facility] ORTHOPAEDIC SURG [place], [place] [address] (Wo rk) documented as of this encounter Procedures Procedure Name Priority Date/Time Associated Diagnosis Comme nts FILM LIBRARY Routine 12/15/2016 12:00 AM Results for this STORAGE ONLY CT EDT procedure ar e in CHEST the results section. documented in this encounter Results Film Library- Storage Only CT Chest (12/15/2016 12:00 AM EDT) Specimen (Source) Anatomical Location Collection Method / Collectio n Time Received Time / Laterality Volume Narrative [facility] - 04/19/2017 12:58 PM EST This result has an attachment that is no t available. This exam is for storage only and is aut o-finalizing. Berry Branham MD IMG FILM LIBRARY ORDERABLES Performing Organization Address City/State/ZIP Code Phon e Number [place], [place] documented in this encounter Visit Diagnoses Not on filedocumented in this encounter Care Teams Therapist Physical Relationship Specialty Start Date End Date Dallas Rizvi MD PCP - General 02/01/10 02/19/18 [address] [place] [address] documented as of this encounter
--- OUTSIDE RECORDS SUMMARY | 2021-10-13 15:53 | XMS_ITS | Encounter Summary ---
:1950 Author Organization [place] [address] Care Team Providers Name Role Phone Ekaterina Omer MD Primary Care Provider Reason for Visit Consultation (Routine) - Specialty Diagnoses / Procedures Referred By Contact Refer red To Contact Weight and Wellness Diagnoses Morbid obesity with BMI of 40.0-44.9, adult Berry Branham MD [facility] D r [address] [facility] Pulmonary Medicine [place] [phone] Fax: Referral ID Status Reason Start Date Expiration Date Visits V isits Requested Authorized [id number] Consult, 04/18/2017 04/18/2018 1 1 Test & Treat Encounter Details Date Type Department Care Team Description 06/18/2017 Office Visit Weight and Wellness [place] [facility] Mor bid obesity with BMI of 40.0-44.9, adult; at [facility] Anxiety disorder, unspecified type ; [address] [facility] [place] [address] [place] [address] Social History Tobacco Use Types Packs/Day Years [...] Sign Reading Time Taken Comments Blood Pressure 136/70 06/18/2017 2:06 PM EDT Pulse 84 06/18/2017 2:06 PM EDT Temperature - - Respiratory Rate 14 06/18/2017 2:06 PM EDT Oxygen Saturation 96% 06/18/2017 2:06 PM EDT Inhaled Oxygen Concentration - - Weight 116.1 kg (255 lb 14.4 oz) 06/18/2017 2:06 PM EDT Height 161.3 cm (5' 3.5) 06/18/2017 2:06 PM EDT Body Mass Index 44.62 06/18/2017 2:06 PM EDT documented in this encounter Patient Instructions Patient InstructionsCulverFlorida MD - 06/18/2017 2:59 PM EDT ?? Plan to participate in the Healthy Lifestyles Program. This is a yearlong program during which you will receive counseling, education, and support around nutrition, physical activity, and behavioraltherapy. ?? Will schedule a baseline nutrition and fitness assessment with the remainder of our team. Please keep a strict log of food intake for review by our dietitian. ?? Lab work today: Cholesterol panel, thyroid studies, hemoglobin A1c, liver function tests, and vitamin D level ?? Plan to participate in the ACTion group to address emotional eating and cravings Follow up with Dr Marsh in ~3 months (lab results will be sent by mail) documented in this encounter Progress Notes [place] Marsh MD - 06/18/2017 2:00 PM EDT Weight and Wellness Center Visit Patient Name: Kiya Cummings Date of : 1950 Age: [address] Dallas Rizvi MD Thank you for referring Kiya Cummings to the [facility] for a consultation for obesity management. I reviewed past records including notes, labs, and other evaluation and discussed them with the patient. CHIEF COMPLAINT: Management of excess weight HISTORY OF PRESENT ILLNESS: Kiya Cummings is a 67 y.o. female referred to the [facility] for an evaluation of obesity. Weight History: She reports that weight has been an issue since her early 20s. She reports that she began gaining weight after starting an OCP prior to marriage. She reports that contributors to weight gain have included high levels of stress, large portion sizes, sedentary lifestyle, mindless eating, and snacking. She also notes episodes of emotional eating, typically a few cookies or a 20 oz soda. 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 She denies a history of binge eating. Highest weight in adulthood was 290 pounds about three years ago. She reports that she lost over 75 pounds through a structured eating program (can't recall the name, but notes that it included a structured meal plan as well as supplements). She has also used Weight Watchers, NutriSystem and Carole Oliver in the past. All of those produced short-lived weight loss, with rapid re-gain once she stopped the program. Lowest weight in adulthood was 150 pounds in her early 20s. Family history of obesity: 9 siblings, 6 of whom are obese (none in childhood); mother also struggled with weight as an adult 24 hour diet recall - Breakfast: Large bowl of oatmeal with 2% milk (thinks about 4 servings) - Lunch: [place] (3 slices) and cheese (2 slices) sandwich (white bread), with mustard - Dinner: Entire single-serving pizza with peppers and onions (from [employer]) - Snacks: 2 yogurts (high-protein Oikos), 2 large handfuls of granola - Drinks: Pepsi (16 oz), 2 cups of coffee with 2% milk, water - Dessert: Cookies, 3-4, a few times a week Exercise: None. Previously enjoyed bike riding in [place]. [facility] Initial Responses 06/15/2017 URICA - Readiness Score 11.66 [facility] Total Scores 32 PROMIS 6B Scores 40.2 PHQ-2 SubScore 2 (Brief screen negative) GAD2 Subscore 2 (Brief screen negative) PROMIS 10 Physical Scores 42.3 PROMIS 10 Mental Scores 43.5 IPAQ-SF Scores 3 Total REAP-S Scores 34 TFEQ - Uncontrolled Eating (UE) 62.96 TFEQ-Cognitive Restraint (CR) 44.33 TFEQ-Emotional Eating 66.66 Importance of making a change 10 - Very Important Confidence to make change 10 - Very Confident Barriers to being physically active Health limitations, Motivation Hours/day on screen time 2-4 hours Most weighed 290 Age most weighed 64 Times lost 10 lbs or more 11 times of more Most weight lost in one attempt 100 Lost weight how? Ate less food, Switched to food with less calories, Ate less fat, Ate fewer carbohydrates, Skipped meals, Ate diet foods or products, Took diet pills prescribed by a doctor, Took other pills, medicines, herbs, or supplements not needing a prescription, Took laxatives or vomited, Drank a lot of water, Ate more fruits, vegetables, salads, Ate less sugar, candy, sweets, Changed eatinghabits (didn't eat late at night, ate several small meals a day), Ate less junk food or fast food, Used a liquid diet formula (ex: Slimfast or Optifast), Joined a weight loss program (ex: Weight Watchers, Carole Boyd, CYNTHIA, or Overeaters Anonymous), Followed a special diet (ex: Dr. Ramsey, [place], [facility], Nutrisystem) Factors for gaining/unable to lose weight Inactivity, Overconsumption, Overeating, Stress, Emotionaleating, Medications, Fast eater, Mindless eater, Snacking Wearing tracking devices helped improve health No Impact of weight on the patient's life: The patient's greatest concerns today regarding weight include her health--dyspnea on exertion. Alsowants to be around as long as possible for her four grandchildren. [facility] Followup Responses 06/15/2017 URICA - Readiness Score [...] work/school because of weight 1-3 REVIEW OF SYSTEMS (positives bolded): see above HPI for additional pertinent +/- findings Constitutional: High appetite and low energy. Daytime tiredness. No recent weight gain or loss. CV: No chest pain or discomfort, no palpitations. No orthopnea, PND. No LE edema. RESP: No shortness of breath at rest, cough, or wheezing. Sleep apnea. +snoring, +ROMO. GI: No nausea,vomiting, diarrhea, constipation, abdominal pain : No dysuria, hematuria, urinary frequency or urgency. +stress incontinence. Musculoskeletal: No joint swelling. No immobility. No myalgias. +arthralgias, +arthritis. Integumentary: No rash or bruising.No skin breakdown/ulcers. No intertrigo. No acanthosis nigricans. Psychiatric: Anxiety, depression Neurological: No headaches Endocrine: No cold intolerance, dry skin, dry/brittle hair, constipation. No excessive thirst. PAST MEDICAL HISTORY Medical and Surgical History: Reviewed and updated. The patient has the following diagnoses that are adverse health consequences of obesity: - GERD - LEONARD on BiPAP - OA History of abdominal surgeries: - panniculectomy - partial hysterectomy Family History: Reviewed and updated in eD. Social History: Reviewed and updated in eD. The patient's support system includes her . VITAL SIGNS: Vitals: 06/18/17 1406 BP: 136/70 Pulse: 84 Resp: 14 SpO2: 96% Weight: 116.1 kg (255 lb 14.4 oz) Height: 161.3 cm (5' 3.5) Body mass index is 44.62 kg/(m^2). Last 5 weight values: Wt Readings from Last 5 Encounters: 06/18/17 116.1 kg (255 lb 14.4 oz) 06/14/17 114 kg (251 lb 6.4 oz) 04/18/17 111.1 kg (245 lb) 02/15/17 (!) 113.4 kg (250 lb) 08/12/15 (!) 104.8 kg (231 lb) PHYSICAL EXAM: Gen: Alert, NAD. + central adiposapthy Skin: Warm, pink, no rashes, no skin breakdown of the intertriginous folds, no acanthosis HEENT: NC/AT, PERRLA, EOMI, clear conjunctiva, MMM, OP clear and narrow, Mallampati grade 4/4 Neck: supple and thick, no LAD, no thyromegaly, no thyroid nodules appreciated CV: RRR, NL S1S2, II/ MIN best appreciated at RUSB Resp: CTAB, no wheezes/crackles Abd: +BS, soft, NT/ND, no HSM/masses appreciated Neuro: Alert and oriented, CN II-XII intact, MS 5/5 throughout, sensation intact to light touch Extremities: No joint swelling or tenderness, +varicose veins Psych: NL affect today PREVIOUS LABS AND IMAGING: No results found for: CHLPL No results found for: HDL No results found for: LDLCHOL No results found for: TRIG No results found for: CHOLHDL No results found for: HA1C Lab Results Component Value Date NA 139 04/18/2017 K 4.6 04/18/2017 CL 98 04/18/2017 CO2 28 04/18/2017 BUN 28 (H) 04/18/2017 CREATININE 0.99 04/18/2017 GLUCOSE 117 04/18/2017 CALCIUM 9.6 04/18/2017 No results found for: ALT, AST, GGT, ALKPHOS, BILITOT, BILIDIR, ALBUMIN, PROT SUMMARY OF VISIT AND RECOMMENDATIONS: Kiya Cummings presents to the [facility] for a consultative visit regarding obesity management. The patient has Class III Obesity defined by a BMI of 44.6. 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 Kiya Cummings's history and physical exam were not suggestive of an underlying medical disease that can contribute to weight gain. However, obesity is a multifactorial disease, and in this case, the following factors could be potential contributors: ?? Genetics and Epigenetics ?? Medications ?? Sleep Disturbance and Circadian Pattern ?? Environment ?? Mental Health and/or Disordered Eating ?? Nutrition and Eating Patterns ?? Lifestyle and Inactivity ?? Social and Cultural Influences ?? Stress and/or Trauma History - the prolonged cortisol release associated with chronic stress is strongly correlated with the development of obesity The patient has been informed that obesity is a chronic disease requiring jail management. Obesity is associated with increased risk of adverse health and psychosocial consequences as well as higher mortality. In addition, the increase in visceral fat volume places the patient at greater risk formetabolic disease. We reviewed the overall goals for obesity management, which include improving thepatient's health, quality of life, and body weight/composition. I explained that a weight loss of just 5-10% of body weight can be associated with improvements in health. Medical issues and plan: Class III Obesity: Treatment options were discussed with the patient and include intensive lifestyleintervention, pharmacotherapy, and bariatric surgical or endoscopic procedures. She reports that sheis highly motivated to participate in the Healthy Lifestyles Program, despite the long drive to the clinic. ?? Medical Management with intensive lifestyle counseling: The patient is interested in the Healthy Lifestyles Program (HLP) at the [facility]. This is a yearlong program during which the patient will receivecounseling, education, and support around nutrition, physical activity, and behavioral therapy. ?? Will schedule a baseline nutrition and fitness assessment ?? Referral to ACTion group to address emotional eating--she is very eager to participate ?? Follow-up: Our health livestock judging coach will be in contact with the patient to initiate the Healthy Lifestyles Program. ?? Fasting Labs ordered to assess co-morbidities: ?? LFTs, FLP, HA1c, vit D, TSH ?? Further recommendations: ?? Annual screen for or assessment of Type II Diabetes, HTN, Hyperlipidemia, Depression, LEONARD, NAFLD,vitamin D deficiency and renal disease ?? Given the association of obesity with cancer, all age appropriate cancer screenings should be UTD ?? Medication Review: If possible medications that promote weight gain should be avoided and medications that are weight-neutral or promote weight loss should be considered. Obesity Co-morbidities: HLP - nutrition, behavioral health and activity recommendations to promote healthy weight and potentially see an improvement in the following adverse health consequences: LEONARD: ?? Diagnosed with sleep study ?? Continue BiPAP as prescribed I spent a total of 60 minutes with the patient 45 minutes of which were spent in [id number] discussion/counseling re obesity, nutrition and activity as well as obesity related co-morbidities Follow up with MD in 3 months, sooner as needed Reynaldo Story - 06/18/2017 2:00 PM EDT RESEARCH STUDY CONSENTING VISIT Visit Date: 06/18/17 PI/Designee: Dr. Wilson Alonso/Reynaldo Story [facility] [id number]: [facility] Biore[employer]itory VELOS: [id number] Kiya Cummings??consented to participate in the above-named protocol. Prior to giving informed consent, the subject had the opportunity to: ?? Read the consent form (or have it read to him/her) ? Discuss the protocol participation with research (or designee) including: ?? Purpose of the study ?? Painful or uncomfortable procedures ?? Risks/benefits ?? Alternatives ?? Who to call with questions ?? Withdrawal rights ?? Ask questions; and ? Consult with family or other physicians ? The subject indicated his/her consent by signing and dating the Patient Informed Consent Form ? Informed consent was conducted prior to any research-related procedures. ?? The subject was provided with a fully executed copy of the consent. Reynaldo Story, CCRC Associate Research Coordinator [facility] Pager: [phone] documented in this encounter Miscellaneous Notes Addendum Note - Anam Mobley - 06/18/2017 3:41 PM EDT Addended by: ANAM MOBLEY on: 06/18/2017 03:41 PM Modules accepted: Orders documented in this encounter Plan of Treatment Upcoming Encounters Date Type Specialty Care Team Description 11/24/2021 Office Visit Neurology Gregg Lacy MD [place] [id number] (Wo rk) 04/06/2022 Appointment Radiology 04/06/2022 Office Visit Orthopaedics Wally Rouse MD [facility] [address] ORTHOPAEDIC SURG NUPUR MARTE5 (Wo rk) documented as of this encounter Procedures Procedure Name Priority Date/Time Associated Diagnosis Comme nts VITAMIN D, Routine 06/18/2017 3:50 PM Morbid obesity with Re sults for this 25-HYDROXY EDT BMI of 40.0-44.9, procedure are in adult the results section. TSH Routine 06/18/2017 3:50 PM Anxiety disorder, Resu lts for this EDT unspecified type procedure are in Morbid obesity with the resu lts BMI of 40.0-44.9, section. adult LDL CHOLESTEROL, Routine 06/18/2017 3:50 PM Morbid obesity wit h Results for this DIRECT EDT BMI of 40.0-44.9, procedure are in adult the results section. HDL/CHOL PROFILE Routine 06/18/2017 3:50 PM Morbid obesity wit h Results for this EDT BMI of 40.0-44.9, procedure are in adult the results section. HEMOGLOBIN A1C Routine 06/18/2017 3:50 PM Impaired fasting Res ults for this EDT glucose procedure are in Morbid obesity with the resu lts BMI of 40.0-44.9, section. adult HEPATIC FUNCTION Routine 06/18/2017 3:50 PM Morbid obesity wit h Results for this PANEL EDT BMI of 40.0-44.9, procedure are in adult the results section. documented in this encounter Results (ABNORMAL) Vitamin D, 25-Hydroxy (06/18/2017 3:50 PM EDT) P athologist Signature 25-OH Vit D 24 (L) 30 - 100 [facility] Total ng/mL [facility] Comment: Deficient <10 ng/mL Insufficient 10 to 29 ng/mL Sufficient 30 to 100 ng/mL Potential Intoxication >100 ng/mL According to the US National Osteoporosi s Foundation, Vitamin D concentrations >30 ng/mL are sufficient to protect bone health. ??The National Kidney Foundation has similarly stated that pat ients with Vitamin D concentrations <30ng/mL should be considered to be insu fficient or deficient. http://tinyurl.Rentabilities/nkf-guidelines http://[employer].Rentabilities/nejm-VitD The [employer] Vitamin D Immunoassay detec ts both 25-OH Vitamin D2 and 25-OH Vitamin D3, but only a total Vitamin D c oncentration is reported. Specimen Anatomical Collection Method Collection Time Receive d Time (Source) Location / / Volume Laterality Blood specimen 06/18/2017 3:50 PM 018 7:10 (specimen) EDT AM EDT Resulting Agency Comment Spec In Lab [place] Marsh MD CHEMISTRY ORDERABLES Performing Organization Address City/State/ZIP Code Phon e Number [place] [phone] (ABNORMAL) Hemoglobin A1c (06/18/2017 3:50 PM EDT) Analysis Performed At Patho logis Time Signature Hemoglobin A1C 6.1 (H) 4.3 - 5.6 [facility] Comment: Reference Range: 4.3 - 5.6% 5.7 - 6.4% - Increased Risk of Developin g Diabetes Mellitus >=6.5% - Consistent with diagnosis of Di abetes Mellitus In the absence of hyperglycemia (i.e. pl asma glucose > 200 mg/dL) or classic symptoms of hyperglycemia a repeat measu rement of HbA1c should be performed on a separate sample to confirm the diagnos is. Diagnosis and Classification of Diabetes Mellitus, Diabetes Care 2013; 36: Suppl. 1, N11-57 Est Avg Gluc 128 mg/dL [facility] Comment: eAG equivalents for HbA1c percentages: HbA1c(%) ?eAG(mg/dL) 6.0 ?126 6.5 ?140 7.0 ?154 7.5 ?169 8.0 ?183 8.5 ?197 9.0 ?212 9.5 ?226 10.0 ? 240 Limitations: The eAG calculation has not been validated on women, individuals below 18 years old and above 70 years old, and individuals with hemoglobinopathies. Additional resources are available on [facility] website. Ken HOGAN, Von J, Clayton R, et al. ??Tr anslating the A1C assay into estimated average glucose values. ??Diabetes Care 2008:31(8):6069-4238. Specimen Anatomical Collection Method Collection Time Receive d Time (Source) Location / / Volume Laterality Blood specimen 06/18/2017 3:50 PM 018 3:54 (specimen) EDT PM EDT Resulting Agency Comment Spec In Lab Florida Marsh MD CHEMISTRY ORDERABLES Performing Organization Address City/[facility] Phon e Number [address] TSH (06/18/2017 3:50 PM EDT) P athologist Signature TSH 1.73 0.27 - 4.20 [facility] mlU/ML [facility] Specimen Anatomical Collection Method Collection Time Receive d Time (Source) Location / / Volume Laterality Blood specimen 06/18/2017 3:50 PM 018 3:54 (specimen) EDT PM EDT Resulting Agency Comment Spec In Lab [place] Marsh MD CHEMISTRY ORDERABLES Performing Organization Address City/[facility] [place] [address] Hepatic Function Panel (06/18/2017 3:50 PM EDT) P athologist Signature Total Protein 7.2 6.1 - 8.0 [facility] gm/dL [facility] Albumin 4.2 3.2 - 5.2 [facility] gm/dL [facility] AST 21 0 - 30 [facility] unit/L [facility] ALT 18 0 - 30 [facility] unit/L [facility] Alk Phos 101 40 - 104 [facility] unit/L [facility] Total 0.3 0.2 - 1.3 [facility] Bilirubin mg/dL [facility] Bili, Direct 0.1 0.0 - 0.3 [facility] mg/dL [facility] Specimen Anatomical Collection Method Collection Time Receive d Time (Source) Location / / Volume Laterality Blood specimen 06/18/2017 3:50 PM 018 3:54 (specimen) EDT PM EDT Resulting Agency Comment Spec In Lab [place] Marsh MD CHEMISTRY ORDERABLES Performing Organization Address City/[facility] Phon e Number [address] LDL Cholesterol, Direct (06/18/2017 3:50 PM EDT) P athologist Signature LDL Chol 89 mg/dL [facility] Comment: Lowest Risk: <100 mg/dL Lower Risk: 100-129 mg/dL Borderline High Risk: 130-159 mg/dL High Risk: 160-189 mg/dL Very High Risk: >rx=051 mg/dL Specimen Anatomical Collection Method Collection Time Receive d Time (Source) Location / / Volume Laterality Blood specimen 06/18/2017 3:50 PM 018 3:54 (specimen) EDT PM EDT Resulting Agency Comment Spec In Lab Florida Marsh MD CHEMISTRY ORDERABLES Performing Organization Address [facility] Phon e Number [address] HDL/Cholesterol Profile (06/18/2017 3:50 PM EDT) P athologist Signature Chol, Total 160 mg/dL [facility] Comment: Lower Risk: <200 mg/dL Average Risk: 200-239 mg/dL Higher Risk: >ym=233 mg/dL HDL 44 mg/dL [facility] Comment: Males: ?? Higher Risk: <40 mg/dL Females: ?? HIgher Risk: <50 mg/dL Chol/HDL Ratio 3.[address] [facility] Chol/HDL Interpretation See Note [facility] Comment: Lipid management should be guided by a p atient? s ASCVD risk, goals and preferences. ACC/AHA Guidelines recommend high intens ity statin if clinical ASCVD or LDL greater than or equal to 190 mg/dL. http://Dick or [employer]Catal[employer] Mobile.com/NMF-YCZ-Gztocokbv Measure LDL if Total Cholesterol minus H DL Cholesterol is greater than 220 mg/dL. Adults aged 40-75 with LDL 70-189 mg/dL should have their 10 year ASCVD risk estimated with the ACC/AHA ASCVD risk es timator http://tools.acc.org/CUJFE-Qhkg-Ogfvjroj r/ Statin should be discussed if risk great er than or equal to 7.5% in non-diabetics. With diabetes, moderate i ntensity statin is recommended if risk less than 7.5%, high intensity if risk g reater than or equal to 7.5%. Annual lipid monitoring on statins is no t necessary. Lifestyle modification is a critical com ponent of ASCVD risk reduction. Specimen Anatomical Collection Method Collection Time Receive d Time (Source) Location / / Volume Laterality Blood specimen 06/18/2017 3:50 PM 018 3:54 (specimen) EDT PM EDT Resulting Agency Comment Spec In Lab [place] Marsh MD CHEMISTRY ORDERABLES Performing Organization Address City/State/[place] [address] documented in this encounter Visit Diagnoses Diagnosis Morbid obesity with BMI of 40.0-44.9, ad ult Morbid obesity Anxiety disorder, unspecified type Impaired fasting glucose Impaired fasting glucose documented in this encounter Care Teams Strategic Planner Relationship Specialty Start Date End Date Ekaterina Omer MD PCP - General General Internal Medicine 08/23/18 [address] [place] [address] documented as of this encounter
--- OUTSIDE RECORDS SUMMARY | 2021-10-13 15:53 | XMS_ITS | Encounter Summary ---
:1950 Author Organization [facility] [place] [address] Care Team Providers Name Role Phone Nelly Lord MD Primary Care Provider Reason for Referral Physical Therapy (Routine) - Closed Specialty Diagnoses / Procedures Referred By Contact Refer red To Contact Physical Therapy Diagnoses Urinary and fecal incontinence Jas, [facility] CHRISTOPHE Duran [address] [place] [place] [address] [address] [place] [address] Referral ID Status Reason Start Date Expiration Date Visits V isits Requested Authorized [id number] Closed Evaluate and 08/12/2015 08/11/2016 1 1 Treat Reason for Visit Reason Comments Anorectal Abnormalities leakage from anus/incontinen ce Surgical (Routine) - Closed Specialty Diagnoses / Procedures Referred By Contact Refer red To Contact General Surgery Diagnoses fecal incontinence Nelly Lord MD [facility] 4l [address] [place] [address] [place] [address] Phone: Fax: Referral ID Status Reason Start Date Expiration Date Visits V isits Requested Authorized [id number] Closed Consult, 05/26/2015 05/25/2016 1 1 Test & Treat Connection Center Encounter Details Date Type Department Care Team Description 08/12/2015 Office Visit General Surgery at [facility], Urinary and fecal [facility] [place]RISTOPHE Duran incontinence [facility] [address] [place], [place] [id number] [phone] Social History Tobacco Use Types Packs/Day Years [...] Sign Reading Time Taken Comments Blood Pressure 157/84 08/12/2015 9:15 AM EDT Pulse 76 08/12/2015 9:15 AM EDT Temperature 36.8 ??C (98.2 ??F) 08/12/2015 9:15 AM EDT Respiratory Rate - - Oxygen Saturation 96% 08/12/2015 9:15 AM EDT Inhaled Oxygen Concentration - - Weight 104.8 kg (231 lb) 08/12/2015 9:15 AM EDT Height 165.1 cm (5' 5) 08/12/2015 9:15 AM EDT Body Mass Index 38.44 08/12/2015 9:15 AM EDT documented in this encounter Progress Notes Layla Mark PA - 08/12/2015 9:18 AM EDT Colorectal Surgery Outpatient Consultation Note [place], [place] [address] PCP: NELLY LORD MD Referring Provider: Nelly Lord [phone] HPI:Kiya Cummings is a very pleasant 65 y.o. female whom we were asked to see by Dr. Lord regarding Chief Complaint Patient presents with ??? Anorectal Abnormalities leakage from anus/incontinence Patient reports that her initial anorectal symptoms appeared in January 2015 with no known trigger and no known diet changes, at which time she started having some inadvertent leakage and seepage as well as froilan loss of stool about one day out of the week. This was occurring whether her stool consistency was diarrhea or formed/pellet. She did not seek any treatment at that time. She did eventually see her PCP who referred her [place] [facility] [place], but she never presented for that evaluation. Symptoms have been intermittent since then. Recently, she went to [place] for a two-week period and had absolutely no symptoms of incontinence at all. The only diet change she notes during that time was that she was eating a lot of pizza. This was in June 2015. She says symptoms eventually returned about one week after she got home. She presents now for evaluation. The patient states that her health is otherwise stable. Appetite and weight have been stable to increasing over the past year. No troubles with fevers or chills. No nausea or vomiting. No recent abdominal pain. Her bowel pattern seems to be quite erratic, alternating between diarrhea and constipation. She can go three or four days with no bowel movement at all, or she can have three bowel movements in one day. Consistency is predominantly pellet. She always strains with bowel movements. She says when she loses stool inadvertently, she never actually feels the stool coming out, but can hear it when it hits the water. It takes her about 30 seconds to evacuate. She does experience urge to have a bowel movement, but simply cannot feel it when the stool is coming out sometimes. Again, this only happens about once every other week at this time. No troubles with melena or hematochezia. No pain with passage of stool. She does endorse occasional urgency. Again, the incontinence of stool or staining of the underwear from mucus leakage and seepage occurs only about once every other week. Patient is regularly incontinent to gas. No prolapse. She does endorse occasional tenesmus. No change in baseline urinary habits. No hematuria. No dysuria. History of frequent urinary tract infections, about three or four per year, always treated with antibiotics. Patient does endorse stress incontinence. No unusual vaginal discharge. When ask to list the symptoms that have prompted today's visit, the patient reports the followin. Stains on the underwear. 2. Diarrhea and pellets on the floor and not being able to feel them come out. 3. Difficulty discriminating between stool and gas. 4. Incontinent to urine. Gynecologic history is notable for two vaginal labors, and she did tear with both of those. She recalls no change in her ability to control stool or urine immediately following either of those labors. Patient has undergone three or four colonoscopies during her lifetime, the last of which was performed on April 09, at [facility] in [place], [place]. Per report of that study, patient was noted to have significant diverticulosis in the sigmoid colon with possible mild diverticulitis, but no polyps. Repeat exam was recommended in five years. She had also undergone a colonoscopy prior to that in 2006, which revealed a spastic sigmoid diverticular segment with no obvious inflammatory change, and diminutive polyps of the rectal and distal transverse colon, which were benign on final pathology. The patient reports a history of rectocele repair in 1994 or 1995 due to urinary incontinence (this was done at [place] [facility]). COREFO Responses 08/11/2015 Incontinence Scale 27.77 Social Impact Scale 16.66 Frequency Scale 0 Stool Releated Aspects 16.66 Medication Scale 8.33 Total COREFO Score 18.26 The COREFO questionnaire is a validated questionnaire [...] level of functional disturbance. Past medical history: Patient Active Problem List Diagnosis Code ??? Rectus diastasis M62.08 ??? Abdominal pannus E65 ??? Other specified aftercare following surgery Z48.89 ??? S/P panniculectomy Z98.89 Past surgical history: Past Surgical History Procedure Laterality Date ??? Pro unlisted procedure, musculoskeletal system, general both shouloders rotater cuff ??? Pro unlisted px female gen sys 1994 1981 prolapse hysterectomy ??? Vascular surgery 1989 varicose veins both legs ??? Pro excise excess skin tissue, abdomen N/A 03/06/2014 ABDOMINOPLASTY performed by Marcos Vance MD at [facility] MA[facility] OR ??? N/A 03/06/2014 MODIFIER PANNICULECTOMY performed by Marcos Vance MD at [facility] MAIN OR Allergies: Sulfa (sulfonamide antibiotics) Medications: Current Outpatient Prescriptions on File Prior to Visit Medication Sig Dispense Refill ??? buPROPion (WELLBUTRIN XL) 150 mg 24 hr tablet Take 150 mg by mouth every morning. ??? montelukast (SINGULAIR) 10 mg tablet ??? DESIPRAMINE HCL (DESIPRAMINE ORAL) ??? fexofenadine (MARY JO) 180 mg tablet ??? levothyroxine (LEVOXYL) 100 mcg tablet ??? albuterol (PROVENTIL HFA;VENTOLIN HFA) 90 mcg/actuation inhaler Inhale 2 puffs into the lungs every 4 hours as needed. Use with spacer ??? escitalopram (LEXAPRO) 20 mg tablet (Patient not taking: No sig reported) No current facility-administered medications on file prior to visit. Social history: The patient lives in [place], [place] ([facility]). Reports that she quit smoking about 38 years ago. Her smoking use included Cigarettes. She has a 10.00 pack-year smoking history. She has never used smokeless tobacco. She reports that she does not drink alcohol or use illicit drugs. Family medical history: No known colorectal cancer, colorectal polyps, Crohn disease or ulcerative colitis. Mother, brother and sister all had colitis. Mother, 2 other sisters and 2 brothers all had diverticulitis. Review of Systems as above, otherwise: Constitutional: Negative for fever, chills, activity change, mild fatigue and unexpected weight change. HEENT: Negative mouth sores; occasional trouble swallowing. Eyes: Negative for diplopia or vision change. Respiratory: Negative for cough, shortness of breath and wheezing. Cardiovascular: Negative for chest pain, palpitations and leg swelling. Gastrointestinal: As above. Genitourinary: Negative for dysuria and difficulty urinating. Musculoskeletal: Negative. Neurological: No numbness, tingling or tremors, no fainting. Hematological: Negative for adenopathy. Physical Exam: Height 165.1 cm (5' 5), weight (!) 104.8 kg (231 lb). Body mass index is 38.44 kg/(m^2). NAD, very pleasant male/female, moist mucus membranes. No pallor. Anicteric. No pallor. No audible wheeze, no increased work of breathing. No c/c/e. The patient was examined in the left lateral position with Keatonarlie assisting. Gentle eversion of the anoderm revealed pristine perianal skin; no patulous anus. Resting tone was slightly diminished. Squeeze/aumengtation was significantly diminished. MAYRA was unremarkable. Anoscopy revealed no mass, lump, ulcer, no pus within the anal canal. Impression: fecal and urinary incontinence Plan: I had a lengthy discussion with the patient regarding the etiology of fecal incontinence. In her case, she is experiencing fecal incontinence or leakage of mucus only about once every other week or more. she is thus not currently a candidate for operative intervention for the incontinence. For re lief of her symptoms, I recommend the following ?? Physical therapy and biofeedback training to improve contraction of the external anal sphincter; also Kegel exercises to be performed on a daily basis for strengthening of the pelvic floor muscles ?? Avoidance of foods that cause diarrhea or urgency ?? Antidiarrheal medication such a loperamide if necessary to slow down the frequency of BMs ?? Daily fiber supplement, such as Metamucil or Citrucel, once to twice a day to maximize the consistency of stool and prevent looser bowel movements ?? Bowel diary to document precise frequency of fecal incontinence In the event that these measures fail to improve symptoms, we can then begin a discussion of more invasive interventions at that time, namely Solesta injections versus sacral nerve stimulation, depending on the frequency of accidents at that time (at her current rate of about 1 accident every other wee k, she does not qualify for either Solesta or sacral nerve stimulation). Patient will contact us forf/u evaluation if she continues to have symptoms after doing the pelvic physical therapy and fiber for a full 3 consecutive months. Thank you for the consultation. We appreciate the opportunity to take part in Kiya Cummings's care. Layla Mark PA-C Division of Colon & Rectal Surgery [facility] [phone] CC: NELLY LORD MD documented in this encounter Plan of Treatment Upcoming Encounters Date Type Specialty Care Team Description 11/24/2021 Office Visit Neurology Gregg Lacy MD [place], [place] [address] (Wo rk) 04/06/2022 Appointment Radiology 04/06/2022 Office Visit Orthopaedics Wally Rouse MD [facility] ORTHOPAEDIC SURG [place], [place] [address] (Wo rk) Scheduled Referrals Name Type Priority Associated Diagnoses Order S chedule Referral to Outpatient Referral Routine Urinary and fecal Ord ered: Physical Therapy incontinence 08/12/2015 documented as of this encounter Visit Diagnoses Diagnosis Urinary and fecal incontinence Unspecified urinary incontinence documented in this encounter Care Teams Taping Supervisor Relationship Specialty Start Date End Date Nelly Lord MD PCP - General 02/01/10 02/19/18 [address] [place] [address] documented as of this encounter
--- OUTSIDE RECORDS SUMMARY | 2021-10-13 15:53 | XMS_ITS | Encounter Summary ---
:1950 Author Organization [facility] [place] [address] Care Team Providers Name Role Phone Dallas Rizvi MD Primary Care Provider Encounter Details Date Type Department Care Team Description 12/22/2016 Orders Only Pulmonology at [facility] Vishnu Gastelum Dyspnea, unspecified [facility] [place] [address] Social History Tobacco Use Types Packs/Day [...] 11/24/2021 Office Visit Neurology Gregg Lacy MD [place], [place] [address] (Wo rk) 04/06/2022 Appointment Radiology 04/06/2022 Office Visit Orthopaedics Wally Rouse MD [facility] ORTHOPAEDIC SURG [place], [place] [address] (Wo rk) documented as of this encounter Results Pulmonary Function Testing (01/02/2017 8:06 PM EDT) Narrative Ilir Ramsey MD - 01/02/2017 8:06 P M EDT Ilir Ramsey MD ? 01/02/2017 ??8:06 PM Spirometry: FVC is normal FEV1 is normal FEV1 / FVC ratio is normal Diffusion: DLCO is normal Lung Volumes: TLC, RV and RV/TLC normal FRC reduced Oxygen Saturation: Oxygen saturation 94% on RA at rest Interpretation: ?? Normal spirometry ?? Normal diffusing capacity ?? Oxygen saturation low on room air Ilir Ramsey MD Ilir Ramsey MD PFT ORDERABLES documented in this encounter Visit Diagnoses Diagnosis Dyspnea, unspecified type Dyspnea, unspecified type documented in this encounter Care Teams Park Recreation Manager Relationship Specialty Start Date End Date Dallas Rizvi MD PCP - General 02/01/10 02/19/18 [address] [place] [address] documented as of this encounter
--- OUTSIDE RECORDS SUMMARY | 2021-10-13 15:53 | XMS_ITS | Encounter Summary ---
:1950 Author Organization [place] [address] Care Team Providers Name Role Phone Dallas Rizvi MD Primary Care Provider Encounter Details Date Type Department Care Team Description 09/06/2017 Office Visit [facility] obesity with [facility] [address] [facility], Rianna I, RD BMI of 40.0-44.9, [address] [facility] [place] [address] Social History Tobacco Use Types Packs/Day [...] Sign Reading Time Taken Comments Blood Pressure 139/74 09/06/2017 2:01 PM EDT Pulse 73 09/06/2017 2:01 PM EDT Temperature - - Respiratory Rate 16 09/06/2017 2:01 PM EDT Oxygen Saturation 96% 09/06/2017 2:01 PM EDT Inhaled Oxygen Concentration - - Weight 112.9 kg (248 lb 14.4 oz) 09/06/2017 2:01 PM EDT Height 161.3 cm (5' 3.5) 09/06/2017 2:01 PM EDT Body Mass Index 43.4 09/06/2017 2:01 PM EDT documented in this encounter Patient Instructions Patient InstructionsEfRianna hutchinson RD - 09/06/2017 1:30 PM EDT Nutrition Goals: 1. Begin a food journal - aim for 1,200 calories 2. Consider purchasing a Calorie Bradley Calorie Counter Book 3. Aim to measure all foods for accuracy 4. 1-2 pieces of fruit per day and 2-3 cups of veggies per day 5. Increase protein at breakfast - limit and avoid cereal - choose instead to make an egg bakes withadded veggies and lean protein 6. Another breakfast option would be Yoruba Yogurt - Try Chobani Hint or Siggis for lower sugars options -add 1-2 tablespoons of favorite nuts Thank you Rianna Tineo MS RD LD documented in this encounter Progress Notes Karlene Abbasi - 09/06/2017 1:30 PM EDT Summary: Pt very resistant to food tracking, tried ACT info session but did not feel comfortable with presenters; pt not active and does not indicate any plan for making lifestyle changes. Recommendation: Pt unable to commit to HLP-lives 1.5 hours away; pt does not appear ready to take onlifestyle change and it might be more challenging as medical management. Reviewed HLP:Yes IV: Date-06/18; Provider-Dr. Marsh Goals with Provider: None set Achieved: N/A PHQ9:N/A Intake Information: Family Life: Food Tracker: Did not; Says it never does any good for me, but says she is open to it BS?: Not Lifestyle Activities: Joining this program, no exercise Supports: Friends, Family, What do you know: Doesn't know much What do need in program: Need to learn how to eat better and manage emotions Realistic Goal Wt: Under 200 lbs Motivation: What is it you want to change/whys? Wants to see grandchildren grow up - 12; 9; 4, 2 What stops you? Did lose 93 lbs on [employer] but couldn't stay on it because she couldn't eat anything/not healthy diet When faced with this obstacle in past, how did you overcome? What action have you taken/willing to take to achieve? Why Now? Doesn't feel good, can't breathe (on Bipap and oxygen) Prince Escamilla, RN - 09/06/2017 1:30 PM EDT Kiya Cummings is a 67 y.o. female seen in clinic today for initial consultation and evaluations. 6 Minute Walk Test (6MWT): 1320 30-Second Chair Stand: 12 Deputy General Counsel Strength Test Right: 29.9 Left: 35 POST 6MWT: BP: 172/72 HR: 93 SPO2: 96 JOSE Perceived Exertion score post-6MWT: 13/20 (pre 6/20) JOSE Dyspnea score post-6MWT: 4/10 (pre 0/10) Current activity level/preferences: walking, recently returned from two weeks in [place] Access to gym/home exercise equipment: no Current mobility needs: none Motivators: not sure why she is here, does not want to do HLP. Personal barrier to moving more is: none Prince Escamilla, YUMIKO Rianna Tineo RD - 09/06/2017 1:30 PM EDT Nutrition Intervention for Weight Management Initial RD visit Assessment/Nutrition Diagnosis: Pt at increased nutritional risk related to excessive calorie intakeand sub optimal physical activity resulting in overweight/obesity as evidenced by BMI and diet recall Food Trackers: not at this time Weight Today: Vitals 09/06/2017 Height (Palauan) 5' 3.5 Height (Metric) 161.3 cm Weight (Palauan) 248 lbs 14 oz Weight (Metric) 112.9 kg BODY MASS INDEX 43.4 kg/m2 Weight Loss History: 93# weight loss between 9747-1229 with a Idea Weight Solution - packaged meals, drinks and bars 47# weight gain x past 3 years Typical Dietary Intake: B: 7am - 9am 2 cups of special K with 2% milk and blueberries or oatmeal with milk and banana L: 1 pm Deli flats; lettuce, pickles, filipino cheese, low sodium turkey, hernandez; water S: occasionally an apple D: Pizza Hut - big salad with 1,000 Island and cheese and 2 slices of medium cheese pizza; 20 pepsi OR baked chicken and broccoli S: occasionally; canned peaches Typical Beverages: water and 2 cups coffee Interview: I feel like I know what I should be doing but no one has ever told me if I am right or not. Reviewed food choices and serving sizes. Barriers to Change: None noted today Nutrition Goals: 1. Begin a food journal - aim for 1,200 calories 2. Consider purchasing a Calorie Bradley Calorie Counter Book 3. Aim to measure all foods for accuracy 4. 1-2 pieces of fruit per day and 2-3 cups of veggies per day 5. Increase protein at breakfast - limit and avoid cereal - choose instead to make an egg bakes withadded veggies and lean protein 6. Another breakfast option would be Yoruba Yogurt - Try Chobani Hint or Siggis for lower sugars options -add 1-2 tablespoons of favorite nuts Assessing Calorie Goals at this time? 1,200 calories based on BMI 43 and RMR 1,525 Monitor/Evaluate: Will follow up upon provider referral Aim for 5-10% weight loss from ABW x 3-6 months from initial visit Thank you Rianna Tinoe MS RD LD 60 minutes were spent today in face to face contact documented in this encounter Plan of Treatment Upcoming Encounters Date Type Specialty Care Team Description 11/24/2021 Office Visit Neurology Gregg Lacy MD [place], [place] [address] (Wo rk) 04/06/2022 Appointment Radiology 04/06/2022 Office Visit Orthopaedics Wally Rouse MD [facility] ORTHOPAEDIC SURG [place], [place] [address] (Wo mandi) documented as of this encounter Visit Diagnoses Diagnosis Morbid obesity with BMI of 40.0-44.9, ad ult Morbid obesity documented in this encounter Care Teams Therapy Assistant Relationship Specialty Start Date End Date Dallas Rizvi MD PCP - General 02/01/10 02/19/18 [address] [place] [address] documented as of this encounter
--- OUTSIDE RECORDS SUMMARY | 2021-10-13 15:53 | XMS_ITS | Encounter Summary ---
:1950 Author Organization [facility] Address [address] [place] [address] Care Team Providers Name Role Phone Dallas Rizvi MD Primary Care Provider Reason for Visit Reason Comments Follow-up Encounter Details Date Type Department Care Team Description 10/02/2017 Office [place] [facility] [place] Branham MD ROMO (dyspnea on exertion); [facility] Mor bid obesity with BMI of 40.0-44.9, adult; Drive Physical deconditioning; [place] [address] Pulmonary Medicine Pulmonary nodules; [phone] [place], [place] [address] Hx pulmonary embolism; [phone] LEONARD treated wit h BiPAP (Work) Social History Tobacco Use Types Packs/Day Years [...] Sign Reading Time Taken Comments Blood Pressure 148/82 10/02/2017 11:12 AM EDT Pulse 71 10/02/2017 11:12 AM EDT Temperature - - Respiratory Rate 18 10/02/2017 11:12 AM EDT Oxygen Saturation 97% 10/02/2017 11:12 AM EDT Inhaled Oxygen Concentration - - Weight 111.1 kg (245 lb) 10/02/2017 11:12 AM EDT Height 160 cm (5' 3) 10/02/2017 11:12 AM EDT Body Mass Index 43.4 10/02/2017 11:12 AM EDT documented in this encounter Progress Notes Berry Branham MD - 10/02/2017 11:30 AM EDT Images from the original note were not included. [facility] Section of Pulmonary and Critical Care Medicine Outpatient Consultation Date of Encounter: 10/02/2017 PCP: Dallas Rizvi MD Reason for Evaluation: Ms. Kiya Cummings returns to the [facility] today tofollow up dyspnea on exertion. She was last seen 06/14/2017 I independently interviewed and examined the patient in the office and have reviewed available records. History of Present Illness: Since our last visit in June, Ms. Cummings is done well from a respiratory perspective. She enjoyed a trip to [place] with her family. Unfortunately she did require ear infection and ruptured her tympanic membrane. She also developed abdominal pain presented to the emergency room and was diagnosed with dive rticulitis. She was treated with antibiotics and all of her symptoms have improved. From a respiratory perspective she has had no significant exacerbations and shortness of breath. Sheis required no emergency room or unplanned healthcare encounters. Continues to take apixaban 2.5 mg daily given her history of unprovoked pulmonary embolism and persistently elevated d-dimer. She has been participating with [facility] and has lost approximately 10 pounds over the last few months. I reviewed medical, surgical family and social [...] interpulmonary lymph nodes no further follow-up required 2018 ??? Urinary disorder 1985 bladder infections ??? Varicose veins of left lower extremities Past Surgical History: Procedure Laterality Date ??? PRO EXCISE EXCESS SKIN TISSUE, ABDOMEN N/A 03/06/2014 ABDOMINOPLASTY performed by Marcos Vance MD at [facility] MAIN OR ??? PRO UNLISTED PROCEDURE, MUSCULOSKELETAL SYSTEM, GENERAL both shouloders rotater cuff ??? PRO UNLISTED PX FEMALE GEN SYS 1994 1981 prolapse hysterectomy ??? VASCULAR SURGERY 1989 varicose veins both legs Family History: Family History Problem (# of Occurrences) Relation (Name,Age of Onset) Alcohol Abuse (1) Sister Cervical Cancer (1) Mother (Opal) [...] Social History Narrative Ms. Cummings lives in [place], [place] with her . 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 She has prior history of radon exposure but this is since been mitigated in her home. She has not had significant occupational exposures to dusts or fumes although there is an incidental exposures or work. She has 2 adult children. She and her frequently winter in [place]. She enjoys watching TV and biking. Current Medications: ??? metFORMIN (GLUCOPHAGE) 500 mg Tablet ??? cholecalciferol, Vitamin D3, (CHOLECALCIFEROL, VITAMIN D3,) 2,000 unit Capsule ??? ascorbic acid, vitamin C, (VITAMIN C) 500 mg Tablet, Chewable ??? rOPINIRole (REQUIP) 1 mg Tablet ??? ELIQUIS 2.5 mg Tablet ??? buPROPion (WELLBUTRIN) 100 mg Tablet ??? omeprazole 20 mg Tablet, Delayed Release (E.C.) ??? fexofenadine (MARY JO) 180 mg tablet ??? levothyroxine (LEVOXYL) 100 mcg tablet Adverse Drug Reactions: Allergies Allergen Reactions ??? Sulfa (Sulfonamide Antibiotics) Hives ??? Ciprofloxacin ??? Macrodantin [Nitrofurantoin Macrocrystal] ??? Pramipexole Review of Systems: An 11-point ROS was negative except per the HPI. Physical Examination: BP 148/82 Pulse 71 Resp 18 Ht 160 cm (5' 3) Wt 111.1 kg (245 lb) SpO2 97% BMI 43.4 kg/m2 Physical Exam Constitutional: She appears well-developed. She is cooperative. Non-toxic appearance. No distress. Cardiovascular: Regular rhythm. Exam reveals distant heart sounds. Pulmonary/Chest: Breath sounds normal. No accessory muscle usage. No tachypnea. No respiratory distress. Neurological: She is alert. Skin: Skin is warm and dry. Labs: I personally reviewed relevant laboratory results [...] on exertion in setting of BMI of 43 kg/(m^2) felt due in part to deconditioning and obesity. 1. ROMO (dyspnea on exertion) 2. Morbid obesity with BMI of 40.0-44.9, adult 3. Physical deconditioning Symptoms have been stable. Despite extensive workup we have not identified any life-threatening or likely progressive cause of dyspnea. Working diagnosis is that her dyspnea is related to physical deconditioning combined with morbid obesity. She will continue to follow with the [facility] work toward achieving gradual weight loss. 4. Pulmonary nodules Imaging and stability are consistent with intrapulmonary lymph nodes. No further follow-up is required. 5. Hx pulmonary embolism Recommend continuing indefinite anticoagulation with apixaban. Recommend reevaluation in setting of excess bleeding risk. Totally appropriate to suspend this anticoagulation as needed for invasive procedures with normal attention to DVT prophylaxis. 6. LEONARD treated with BiPAP Urged continued use of BiPAP for sleep. Return to clinic in as needed Berry Branham MD, PhD N [facility] PULMONOLOGY AT [facility] [id number] Dept: [phone] Loc: [phone] documented in this encounter Plan of Treatment Upcoming Encounters Date Type Specialty Care Team Description 11/24/2021 Office Visit Neurology Gregg Lacy MD [place], [place] [address] (Wo rk) 04/06/2022 Appointment Radiology 04/06/2022 Office Visit Orthopaedics Wally Rouse MD [facility] ORTHOPAEDIC SURG [place], [place] [address] (Wo rk) documented as of this encounter Visit Diagnoses Diagnosis ROMO (dyspnea on exertion) Other dyspnea and respiratory abnormalit y Morbid obesity with BMI of 40.0-44.9, ad ult Morbid obesity Physical deconditioning Debility, unspecified Pulmonary nodules 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
--- OUTSIDE RECORDS SUMMARY | 2021-10-13 15:53 | XMS_ITS | Encounter Summary ---
:1950 Author Organization [facility] [place] [address] Care Team Providers Name Role Phone Dallas Rizvi MD Primary Care Provider Reason for Visit Reason Comments Wound Check Encounter Details Date Type Department Care Team Description 04/05/2014 Emergency Emergency Department Adama Hoffman MD [facility] [place] [address] [place] [address] [phone] (Wo rk) Social History Tobacco Use Types [...] Sign Reading Time Taken Comments Blood Pressure 137/84 04/05/2014 6:26 PM EST Pulse 82 04/05/2014 6:26 PM EST Temperature 36.8 ??C (98.2 ??F) 04/05/2014 6:26 PM EST Respiratory Rate 18 04/05/2014 6:26 PM EST Oxygen Saturation 100% 04/05/2014 6:26 PM EST Inhaled Oxygen Concentration - - Weight 90.7 kg (200 lb) 04/05/2014 6:26 PM EST Height - - Body Mass Index 33.28 03/06/2014 8:30 AM EST documented in this encounter Discharge Instructions Discharge InstructionsDaLauren kaur MD - 04/05/2014 6:48 PM EST Instructions: Continue with twice a day dressing changes with saline moistened gauze to the open area of your abdomen. Monitor for signs of infection--spreading redness, heat, new drainage, fever, chills. Follow up in plastic surgery clinic as directed on April 16. Call [phone] with questions orconcerns. documented in this encounter Medications at Time of Discharge Medication Sig Dispensed Refills Start Date End Date oxyCODONE (ROXICODONE) 5 Take 1-2 tablets by 40 tablet 0 04/16/2014 mg Tablet mouth every 4 hours as needed for Pain. buPROPion (WELLBUTRIN XL) Take 150 mg by [...] 0 08/15/2006 0 06/25/2018 100 mcg tablet Calcium Carbonate-Mag 0 08/15/2006 Hydroxid (MYLANTA ULTRA) 700-300 mg Chew documented as of this encounter Miscellaneous Notes Consult Note - Lauren Chris MD - 04/05/2014 6:36 PM EST PLASTIC SURGERY CONSULTATION Resident HPI: 64 y.o. F sp panniculectomy in February with Dr. Vance who presents to the ED with complaints of wound dehiscence. She states that over the last week she had had some separation at the midline of her abdominal wound. She denies any erythema, drainage, fever, or chills. She states that it has been developing over the last week. She denies any new abdominal pain. She states that she has been overworking lately and accidentaly stretching and lifting heavy weights. SOCIAL HISTORY History Social History ??? Marital Status: Spouse Name: N/A Number of Children: N/A ??? Years of Education: N/A Occupational History ??? Not on file. Social History Main Topics ??? Smoking status: Former Smoker -- 1.00 packs/day for 10 years Types: Cigarettes Quit date: 05/10/1977 ??? Smokeless tobacco: Never Used ??? Alcohol Use: No ??? Drug Use: No ??? Sexual Activity: Not on file Other Topics Concern ??? Exercise: Patient Reported No ??? Abuse Or Threat: Physical, Sexual, Verbal No Social History Narrative Past Medical History Diagnosis Date ??? Allergy 1979 sulfur and 2013 sipro ??? Musculoskeletal disease 1999 arthritis in hands and toes ??? Asthma 1977 asthma ??? Circulatory disease 1985 varicose veins stripped ??? Diverticulitis 2005 diverticulitis GERD ??? ENT disease 2010 tinnitus ??? Eye problems 2012 cataracts ??? Urinary disorder 1985 bladder infections ??? Mental or behavioral problem 2000 depression ??? Hormone disorder underactive thyroid Past Surgical History Procedure Laterality Date ??? Musculoskeletal surgery unlisted both shouloders rotater cuff ??? Genital surg proc, female unlisted 1994 1981 prolapse hysterectomy ??? Vascular surgery 1989 varicose veins both legs ??? Excise excess skin tissue, abdomen N/A 03/06/2014 ABDOMINOPLASTY performed by Marcos Vance MD at [facility] MAIN OR ??? N/A 03/06/2014 MODIFIER PANNICULECTOMY performed by Marcos Vance MD at [facility] MAIN OR FOCUSED EXAMINATION: Temp: [36.8 ??C (98.2 ??F)] Heart Rate: [82] Resp: [18] BP: (137)/(84) On RA Constitutional: NAD Midline abdominal incision with superficial dehiscence extending 5cm, Right siide with 3cm tunnel, no drainage, no surrounding erythema Assessment: Kiya Cummings is a 64 y.o. female patient sp panniculectomy in February with Dr. Vance, now with superficial dehiscence at midline. Recommendations: BID dressing changes with wet to dry saline gauze---will transition to medihoney at next clinic appointment Follow up in clinic next week for a wound check Monitor for signs of infection ED Triage - Ni Gannon RN - 04/05/2014 6:27 PM EST Patient states her lower abdominal incision has opened up more since , she has had brownishdrainage. She states she has had the chills but no fever. The wound has several deeper holes toward the center. She states she took Ibuprofen at 4 pm. Skin is slightly flushed ( on her face), warm and dry. documented in this encounter Plan of Treatment Upcoming Encounters Date Type Specialty Care Team Description 11/24/2021 Office Visit Neurology Gregg Lacy MD [place], [place] [address] (Wo rk) 04/06/2022 Appointment Radiology 04/06/2022 Office Visit Orthopaedics Wally Rouse MD [facility] ORTHOPAEDIC SURG [place], [place] [address] (Wo rk) documented as of this encounter Visit Diagnoses Not on filedocumented in this encounter Care Teams Payer Specialist Relationship Specialty Start Date End Date Dallas Rizvi MD PCP - General 02/01/10 02/19/18 [address] [place] [address] documented as of this encounter
--- OUTSIDE RECORDS SUMMARY | 2021-10-13 15:53 | XMS_ITS | Encounter Summary ---
:1950 Author Organization [facility] [place] [address] Care Team Providers Name Role Phone Dallas Rizvi MD Primary Care Provider Encounter Details Date Type Department Care Team Description 01/02/2017 Hospital Encounter Pulmonology at [facility] Dyspnea, unspecified [address] [facility] [place] [address] Social History Tobacco Use Types Packs/Day [...] Sig Dispensed Refills Start Date End Date venlafaxine (EFFEXOR-XR) 150 mg. 0 12/28/2016 10/02/2017 75 mg Capsule, Sust. Release 24 hr lansoprazole (PREVACID) 15 Take 15 mg by [...] mcg tablet documented as of this encounter Procedure Notes Ilir Ramsey MD - 01/02/2017 8:05 PM EDTAssociated Order(s): PULMONARY FUNCTION TEST Spirometry: FVC is normal FEV1 is normal FEV1 / FVC ratio is normal Diffusion: DLCO is normal Lung Volumes: TLC, RV and RV/TLC normal FRC reduced Oxygen Saturation: Oxygen saturation 94% on RA at rest Interpretation: ?? Normal spirometry ?? Normal diffusing capacity ?? Oxygen saturation low on room air Ilir Ramsey MD documented in this encounter Plan of Treatment Upcoming Encounters Date Type Specialty Care Team Description 11/24/2021 Office Visit Neurology Gregg Lacy MD [place], [place] [address] (Wo rk) 04/06/2022 Appointment Radiology 04/06/2022 Office Visit Orthopaedics Wally Rouse MD [facility] ORTHOPAEDIC SURG [place], [place] [address] (Wo rk) documented as of this encounter Procedures Procedure Name Priority Date/Time Associated Diagnosis Comme nts PULMONARY FUNCTION Routine 01/02/2017 8:06 PM Dyspnea, unspeci fied Results for this TEST EDT type procedure are i n the results section. documented in this encounter Results Pulmonary Function Testing (01/02/2017 [...] encounter Visit Diagnoses Diagnosis Dyspnea, unspecified type documented in this encounter Care Teams Executive Search Consultant Relationship Specialty Start Date End Date Dallas Rizvi MD PCP - General 02/01/10 02/19/18 [address] [place] [address] documented as of this encounter
--- OUTSIDE RECORDS SUMMARY | 2021-10-13 15:53 | XMS_ITS | Encounter Summary ---
:1950 Author Organization [facility] [place] [address] Care Team Providers Name Role Phone Dallas Rizvi MD Primary Care Provider Encounter Details Date Type Department Care Team Description 12/24/2017 Surgery Gastroenterology at [facility] Caleb Tineo, COLONOSCOPY, [facility] [place] [address] [facility] [phone] GASTROENTEROLOGY DEPT. [place], [place] [address] Social History Tobacco Use Types [...] Sign Reading Time Taken Comments Blood Pressure 140/67 12/24/2017 10:50 AM EDT Pulse 76 12/24/2017 10:40 AM EDT Temperature 36.5 ??C (97.7 ??F) 12/24/2017 9:21 AM EDT Respiratory Rate 16 12/24/2017 10:50 AM EDT Oxygen Saturation 97% 12/24/2017 10:40 AM EDT Inhaled Oxygen Concentration - - Weight 112.9 kg (249 lb) 12/24/2017 9:21 AM EDT Height 160 cm (5' 3) 12/24/2017 9:21 AM EDT Body Mass Index 44.11 12/24/2017 9:21 AM EDT documented in this encounter Discharge Instructions Discharge InstructionsNirmala Espinoza RN - 12/24/2017 10:51 AM EDT Colonoscopy What to expect after the procedure You may feel a little more gassy or bloated than usual. This is normal. You should expect the return of normal bowel function in the 2 to 3 days. Activity Because of the sedation that you received your judgement and reaction time are effected ?? Go home and rest quietly for the remainder of the day. You may resume your normal activities tomorrow. ?? Change from one position to the next slowly. You may lose your balance unexpectedly ?? Be careful on stairs, as you may be unsteady on your feet FOR THE NEXT 24 HRS ?? DO NOT DRIVE OR OPERATE ANY MACHINERY ?? DO NOT DRINK ALCOHOLIC BEVERAGES ?? DO NOT SIGN LEGAL DOCUMENTS ?? If you are a smoker: DO NOT SMOKE WHILE YOU ARE ALONE Diet ?? Start by eating small portions of foods that ordinarily will not upset your stomach . Avoid gas producing foods for the next few days ?? Be gentle with what you choose to start with ?? Drink plenty of fluids ( unless your doctor has told you not to). IV SITE-- slight redness, or tenderness is normal. You can use warm compresses if you become concerned. If the tenderness +/or redness increases or foul drainage and a red streak occurs, please contact your PCP immediately When shoud you call for help? Call 911 anytime you think you may need emergency care. For example If you pass out ( loss of consciousness) If you pass maroon or bloody stools If you have severe belly pain Call your doctor now or seek immediate medical care If your stools are black and tarlike If your stools have streaks of blood, but you did not have a biopsy or any polyps removed If you have belly pain, or your belly is swollen and firm If you vomit If you have a fever If you are very dizzy Watch closely for changes in your health, and be sure to contact your doctor if you have any problems Your doctor will let you know when you will need your next colonoscopy. The results of your test andyour risk for colorectal cancer will help your doctor decide how often you need to be checked. Sunday-Sunday Same Day Endo [phone] 7a-8p Otherwise contact [phone] and ask to speak to the internal revenue agent salesperson handbags Follow up care is a leiws part of your treatment and safety. Be sure to make and go to all appointments, and call your doctor if you are having problems. Discharge instructions reviewed with patient who expresses understanding Patient InstructionsGoCaleb harris MD - 12/24/2017 11:44 AM EDT Please see Recommendations in the Provation procedure report which is documented in the procedural note in E-DH. documented in this encounter Medications at Time of Discharge Medication Sig Dispensed Refills Start Date End Date cholecalciferol, Vitamin Take 1 capsule by 0 D3, 50 mcg (2,000 unit) mouth daily. Capsule ascorbic acid, vitamin Take 500 mg by mouth 0 C, (VITAMIN C) 500 mg daily. Tablet estradiol (ESTRACE) 0.01 insert 1 gram 0 09/16/19 18 06/25/2018 % (0.1 mg/gram) Cream vaginally three times a week venlafaxine (EFFEXOR-XR) Take 150 mg by mouth 0 0 11/13/2017 01/27/2019 150 mg Capsule, Sust. daily. Release 24 hr venlafaxine (EFFEXOR-XR) Take 75 mg by mouth 0 01/27/2019 75 mg Capsule, Sust. daily. Release 24 hr metFORMIN (GLUCOPHAGE) Take 2 tablets by 120 tablet 3 201703/27/2018 500 mg mouth 2 times daily TabletIndications: (with meals). Impaired fasting glucose ELIQUIS 2.5 mg Tablet Take 2.5 mg by mouth 1 03/201711/08/2020 2 times daily. buPROPion (WELLBUTRIN) Take 200 mg by mouth 0 02/18/2018 100 mg Tablet daily. omeprazole 20 mg Tablet, Take 2 tablets by 60 tablet 0 07/201706/25/2018 Delayed Release (E.C.) mouth daily. fexofenadine (AMRY JO) 0 08/15/2006 180 mg tablet levothyroxine (LEVOXYL) 0 08/15/2006 0 06/25/2018 100 mcg tablet documented as of this encounter H&P Notes Caleb Tineo MD - 12/24/2017 9:38 AM EDT Gastroenterology and Hepatology Pre-Procedure History and Physical Exam Procedure: Colonoscopy: Indication: Screening. Patient Active Problem List Diagnosis Code ??? [...] with BMI of 40.0-44.9, adult E66.01, Z68.41 EXAM: HEENT: Airway examined, oropharynx clear Mallampati Score: II (soft palate, uvula, fauces visible) LUNGS: Clear to auscultation HEART: Regular rate and rhythm, normal S1, S2 ABDOMEN: Normal bowel sounds, soft, non tender, non distended, A/P Proceed with the planned endoscopic procedure. ASA 2 Sedation Plan: moderate (conscious sedation) Risks and benefits of the procedure explained to the patient. Consent signed. documented in this encounter Miscellaneous Notes Op Note - Caleb Tineo MD - 12/24/2017 11:44 AM EDT [facility] Operative Note Patient Name: Kiya Cummings DOB: [id number] MR#: [id number] Case Date: 12/24/2017 Surgeon: Surgeon(s) and Role: * Caleb Tineo MD - Primary Preoperative diagnosis: screening Postoperative diagnosis: * No post-op diagnosis entered * Procedure(s) (LRB): COLONOSCOPY, DIAGNOSTIC (N/A) Full procedure note is documented under the Procedure section of eDH. documented in this encounter Plan of Treatment Upcoming Encounters Date Type Specialty Care Team Description 11/24/2021 Office Visit Neurology Gregg Lacy MD [place], [place] [address] (Wo rk) 04/06/2022 Appointment Radiology 04/06/2022 Office Visit Orthopaedics Wally Rouse MD [facility] ORTHOPAEDIC SURG [place], [place] [address] (Wo rk) documented as of this encounter Procedures Procedure Name Priority Date/Time Associated Comments Diagnosis COLONOSCOPY, 12/24/2017 9:58 AM screening DIAGNOSTIC EDT COLONOSCOPY Routine 12/24/2017 9:42 AM Results f or this EDT procedure are i n the results section. documented in this encounter Results COLONOSCOPY (12/24/2017 9:42 AM EDT) [facility] Method Time Signature COLONOSCOPY [facility] [employer] Endoscopy Procedure Date: 12/24/2017 9:42 AM ? Patient Name: Kiya Cummings ? Date of : 1950 ? Age: 67 ? Order #: [id number] ? Instrument Name: [id number] ? Procedure: ? Colonoscopy Indications: ? High risk colon cancer surveillance : ? Personal history of colonic p olyps Providers: ? Caleb Tineo MD, Kasey Rich ? Jess, YUMIKO, Jenny Obrien MD: ?Dallas Rizvi MD Medicines: ? Midazolam 4 mg IV, Fentanyl 150 ? micrograms IV Complications: ? No immediate complications. Procedure: ? Pre-Anesthesia Assessment: ? - Prior to the procedure, a H istory ? and Physical was performed, a nd ? patient medications, allergie s and ? sensitivities were reviewed. The ? patient's tolerance of previo us ? anesthesia was reviewed. ? - The risks and benefits of t he ? procedure and the sedation op tions ? and risks were discussed with the ? patient. All questions were a nswered ? and informed consent was obta ined. ? - ASA Grade Assessment: II - A ? patient with mild systemic di sease. ? The procedure, indications, b enefits, ? risks and alternatives were e xplained ? to the patient. Specifically ? discussed were potential ? complications including, but not ? limited to, bleeding, perfora tion, ? infection, missing a cancer, and ? adverse medication reactions. The ? patient was placed in the lef t ? lateral decubitus position, a nd a ? digital rectal exam was perfo rmed. ? The Colonoscope was inserted in the ? anus and under direct visuali zation, ? advanced to the terminal ileu m. ? Careful inspection was made a s the ? colonoscope was withdrawn. Th e ? patient tolerated the procedu re well. ? The quality of the bowel prep aration ? was good. The quality of the bowel ? preparation was evaluated usi ng the ? BBPS ([place] Bowel Preparatio n Scale) ? with scores of: Right Colon = 2 ? (minor amount of residual sta ining, ? small fragments of stool and/ or ? opaque liquid, but mucosa see n irwin), ? Transverse Colon = 2 (minor a mount of ? residual staining, small frag ments of ? stool and/or opaque liquid, b ut ? mucosa seen well) and Left Co debra = 2 ? (minor amount of residual sta ining, ? small fragments of stool and/ or ? opaque liquid, but mucosa see n irwin). ? The total BBPS score equals 6 . The ? total duration of the procedu re was ? 25 minutes. Scope withdrawal time was ? 11 minutes. ? Findings: ? The perianal and digital rectal examinations were ? normal. ? The terminal ileum appeared normal. ? Multiple diverticula were found in the sigmoid colon. ? The retroflexed view of the distal rectum and anal ? verge was normal and showed no anal or rectal ? abnormalities. ? The exam was otherwise without abnormality. ? Moderate Sedation: ? I was present during the intraservice time as ? documented by the sedation RN. Impression: ?- The examined portion of the ileu m ? was normal. ? - Diverticulosis in the sigmo id colon. ? - The distal rectum and anal verge ? are normal on retroflexion vi ew. ? - The examination was otherwi se ? normal. ? - No specimens collected. Recommendation: ?- Repeat colonoscopy in 7 years for ? surveillance. ? Attending Participation: ? I personally performed the entire procedure. ? Caleb Tineo MD 12/24/2017 10:57:46 AM This report has been signed electronically. Number of Addenda: 0 Note Initiated On: 12/24/2017 9:42 AM Specimen (Source) Anatomical Collection Method Collection Time Re ceived Time Location / / Volume Laterality 12/24/2017 9:42 AM EDT Dallas Rizvi MD GENERAL SURGICAL ORDERABLES Performing Organization Address City/State/ZIP Code Phon e Number [employer] documented in this encounter Visit Diagnoses Not on filedocumented in this encounter Administered Medications Inactive Administered Medications - up to 3 most recent administrations Medication Order MAR Action Action Date Dose Rate Site fentaNYL 50 mcg/mL multi-dose Given 12/24/2017 10:17 AM EDT 50 m cg injection ONCE PRN, Starting on Sun12/24/17 at 1013, Until Sun12/24/17 at 1344, Intra-Operative (Intra-Procedure), Routine Given 12/24/2017 10:15 AM EDT 50 mcg Given 12/24/2017 10:13 AM EDT 50 mcg lactated Ringers infusion New Bag 12/24/2017 9:27 AM EDT 100 mL/hr 100 mL/hr 100 mL/hr, Intravenous, CONTINUOUS, Starting on Sun12/24/17 at 0945, Until Sun12/24/17 at 1344, Endoscopy (Day of Procedure) midazolam (PF) (VERSED) multi-dose injec tion Given 12/24/2017 10:20 AM EDT 1 mg ONCE PRN, Starting on Sun12/24/17 at 1014, Until Sun12/24/17 at 1344, Intra-Operative (Intra-Procedure), Routine Given 12/24/2017 10:17 AM EDT 1 mg Given 12/24/2017 10:15 AM EDT 1 mg documented in this encounter Active and Recently Administered Medications Times are shown in EDT. Continuous Medication Order 12/22/2017 12/23/2017 12/24/2017 lactated Ringers infusion 0927 ( New Bag - Provider: Bronwyn Rey RN) 100 mL/hr, at 100 mL/hr, Intravenous, CO NTINUOUS, Starting Sun12/24/17 at 0945, Until Sun12/24/17 at 1344, Endo (Day of Procedure) PRN Medication Order 12/22/2017 12/23/2017 12/24/2017 fentaNYL 50 mcg/mL multi-dose injection (CANCELED) 1013 (Given - Provider: Kasey Mercado, RN)1015 (Given - Provider: Kasey Mercado, RN)1017 (Given - Provider: Kasey Mercado RN) ONCE PRN, Starting 12/24/17 at 1013, Until Sun12/24/17 at 1344, Intra- Operative (Intra-Procedure), Routine midazolam (PF) (VERSED) multi-dose injection (CANCELED) 1014 (Given - Provider: Kasey Mercado RN)1015 (Given - Provider: Kasey Mercado RN)1017 (Given - Provider: Kasey Mercado, RN)1020 (Given - Provider: Kasey Mercado, RN) ONCE PRN, Starting Sun12/24/17 at 1014, Until Sun12/24/17 at 1344, Intra- Operative (Intra-Procedure), Routine documented in this encounter Care Teams Heavy Equipment Service Technician Relationship Specialty Start Date End Date Dallas Rizvi MD PCP - General 02/01/10 02/19/18 [address] [place] [address] documented as of this encounter
--- OUTSIDE RECORDS SUMMARY | 2021-10-13 15:53 | XMS_ITS | Encounter Summary ---
:1950 Author Organization [facility] [place] [address] Care Team Providers Name Role Phone Dallas Rizvi MD Primary Care Provider Encounter Details Date Type Department Care Team Description 12/24/2017 Hospital Encounter Gastroenterology at [facility] Caleb Tineo, [facility] [place] [address] [facility] [phone] CENTER GASTROENTEROLOGY DEPT. [place], [place] [address] Social History Tobacco Use Types [...] to be checked. Sunday-Sunday Same Day Endo [phone] 7a-8p Otherwise contact [phone] and ask to speak to the transportation maintenance worker salesperson handbags Follow up care is a lewis part of your [...] 07/201706/25/2018 Delayed Release (E.C.) mouth daily. fexofenadine (MARY JO) 0 08/15/2006 180 mg tablet levothyroxine [...] Tineo MD - 12/24/2017 11:44 AM EDT [facility] Operative Note Patient Name: Kiya Cummings : [id number] MR#: [id number] Case Date: 12/24/2017 Surgeon: Surgeon(s) and Role: * Caleb Tineo MD - Primary Preoperative diagnosis: screening Postoperative diagnosis: * No post-op diagnosis entered * Procedure(s) (LRB): COLONOSCOPY, DIAGNOSTIC (N/A) Full procedure note is documented under the Procedure section of eDH. documented in this encounter Plan of Treatment Upcoming Encounters Date Type Specialty Care Team Description 11/24/2021 Office Visit Neurology Gregg Lacy MD [place], [place] [address] (Wo rk) 04/06/2022 Appointment Radiology 04/06/2022 Office Visit Orthopaedics Wally Rouse MD [facility] ORTHOPAEDIC SURG [place], [place] [address] (Wo rk) documented as of this encounter Procedures Procedure Name Priority Date/Time Associated Comments Diagnosis COLONOSCOPY, 12/24/2017 9:58 AM screening DIAGNOSTIC EDT COLONOSCOPY Routine 12/24/2017 9:42 AM Results f or this EDT procedure are i n the results section. documented in this encounter Results COLONOSCOPY (12/24/2017 9:42 AM EDT) [facility] Method Time Signature COLONOSCOPY [facility] [employer] Endoscopy Procedure Date: 12/24/2017 9:42 AM ? Patient Name: Kiya Cummings ? Date of : 1950 ? Age: 67 ? Order #: [id number] ? Instrument Name: [id number] ? Procedure: ? Colonoscopy Indications: ? High risk colon cancer surveillance : ? Personal history of colonic p olyps Providers: ? Claeb Tineo MD, Kasey Rich ? Jess, YUMIKO, [...] was evaluated usi ng the ? BBPS ([place] Bowel Preparatio n Scale) ? with scores [...] MAR Action Action Date Dose Rate Site lactated Ringers infusion New Bag 12/24/2017 9:27 AM EDT 100 mL/hr 100 mL/hr 100 mL/hr, Intravenous, CONTINUOUS, Starting on Sun12/24/17 at 0945, Until Sun12/24/17 at 1344, Endoscopy (Day of Procedure) documented in this encounter Active and Recently [...] injection (CANCELED) 1013 (Given - Provider: Kasey Mercado RN)1015 (Given - Provider: Kasey Mercado, RN)1017 (Given - Provider: Kasey Mercado, YUMIKO) ONCE PRN, Starting Sun12/24/17 at 1013, Until Sun12/24/17 at 1344, Intra- Operative (Intra-Procedure), Routine midazolam (PF) (VERSED) multi-dose injection (CANCELED) 1014 (Given - Provider: Kasey Mercado RN)1015 (Given - Provider: Kasey Mercado, RN)1017 (Given - Provider: Kasey Mercado, RN)1020 (Given - Provider: Kasey Mercado, RN) ONCE PRN, Starting Sun12/24/17 at 1014, Until Sun12/24/17 at 1344, Intra- Operative (Intra-Procedure), Routine documented in this encounter Care Teams Lavender Farm Worker Relationship Specialty Start Date End Date Dallas Rizvi MD PCP - General 02/01/10 02/19/18 [address] [place] [address] documented as of this encounter
--- OUTSIDE RECORDS SUMMARY | 2021-10-13 15:53 | XMS_ITS | Encounter Summary ---
:1950 Author Organization [employer] [place] [address] Care Team Providers Name Role Phone Dallas Rizvi MD Primary Care Provider Encounter Details Date Type Department Care Team Description 11/19/2017 Office Visit Weight and Wellness [place] chin, Mor bid obesity with BMI of 40.0-44.9, adult; at [facility] Depression, unspecified depression type [address] [place] [address] [place] [address] [phone] Social History Tobacco Use Types Packs/Day Years [...] Sign Reading Time Taken Comments Blood Pressure 126/58 11/19/2017 2:25 PM EDT Pulse 76 11/19/2017 2:25 PM EDT Temperature - - Respiratory Rate 14 11/19/2017 2:25 PM EDT Oxygen Saturation 94% 11/19/2017 2:25 PM EDT Inhaled Oxygen Concentration - - Weight 113.1 kg (249 lb 4.8 oz) 11/19/2017 2:25 PM EDT Height 161.3 cm (5' 3.5) 11/19/2017 2:25 PM EDT Body Mass Index 43.47 11/19/2017 2:25 PM EDT documented in this encounter Patient Instructions Patient InstructionsCulvFlorida cristina MD - 11/19/2017 2:54 PM EDT Images from the original note were not included. Your resting metabolic rate is around 1500 calories per day. To lose 1 pound per week, you would need to only take in 1000 calories per day--this amount of calorie restriction will make most people hungry. You are on two medications that suppress your appetite, but you will still need to make healthy diet choices, and make exercise a high priority, as this is the best way to burn off the extra calories. GOALS 1) No more soda after you finish the last Pepsi at home 2) Begin walking 3 days per week, for 30 minutes, and continue to increase as able; when weather is not good, plan to switch to the treadmill Week Warm-up Brisk walking Cool-down 1 5 minutes 5 minutes 5 minutes 2 5 minutes 7 minutes 5 minutes 3 5 minutes 9 minutes 5 minutes 4 5 minutes 11 minutes 5 minutes 5 5 minutes 13 minutes 5 minutes 6 5 minutes 15 minutes 5 minutes 7 5 minutes 18 minutes 5 minutes 8 5 minutes 20 minutes 5 minutes 9 5 minutes 23 minutes 5 minutes 10 5 minutes 26 minutes 5 minutes 11 5 minutes 28 minutes 5 minutes 12 5 minutes 30 minutes 5 minutes 3) Increase bupropion from 100 mg to 200 mg, and monitor for decreased appetite. 4) 1-2 pieces of fruit per day and 2-3 cups of veggies per day 5) Increase protein at breakfast - limit and avoid cereal - choose instead to make an egg bakes withadded veggies and lean protein 6) Start resistance training with a band, at least 10-15 minutes per day, 3 days per week. Building up muscle mass is the best way to increase your resting metabolic rate. Follow up with Dr Marsh in 3 months, sooner as needed. Learning About Eating More Fruits and Vegetables What are some quick tips for eating more fruits and vegetables? We're all encouraged to eat more fruits and vegetables. Yet it can seem like one more chore on the daily to-do list. But you can add color and crunch to your meals-and lots of nutrition-with these quick tips. ?? Brighten up your breakfast. ? Add sliced fruit or frozen berries to your yogurt, pancakes, or cereal. ? Blend fresh or frozen fruit, veggies, and yogurt with a little fruit juice, and you've got a tastysmoothie. ? Make your scrambled eggs a gourmet treat by adding onions, celery, and woodall peppers. ? Bake up some bran muffins with grated carrots added into the mix. ?? Make a livelier lunch. ? Jazz up tuna or chicken salad with apple chunks, celery, or grapes-or all of them! ? Add cucumbers, avocado slices, tomatoes, and lettuce to your sandwiches. ? Kick up the flavor of grilled cheese sandwiches with spinach and tomatoes. ? Puree some potatoes or squash to add to tomato soup. ?? Add delicious veggies to dinner. ? Give more color and taste to salads. Stir in red cabbage, carrots, and woodall peppers. Top salads with dried cranberries or raisins. Marte your salad with orange sections or strawberries. ? Keep a bag or two of frozen vegetables ready to pull out of the freezer for a side dish. ? Spice up spaghetti and meatballs with mushrooms and woodall peppers. ? Roast vegetables like cauliflower or squash in the oven with olive oil to bring out their flavor. ? Season your veggie dish with herbs like basil and cassy and a splash of lemon juice and olive oil. ? If you've got a main dish in the oven, stick in a potato to round out your meal. ?? Grab some healthy snacks on the go. ? Scoop up an apple, banana, or plum for a quick snack. ? Cut up raw fruits and veggies to keep in your fridge. Grapes, oranges, carrots, and celery are great choices. They'll be ready for a quick snack or an after-school treat. ? Dip raw vegetables in hummus or peanut butter. ? Keep dried fruit on hand for an easy take with you snack. ?? Make something sweet-and healthy. ? Try baked apples or pears topped with cinnamon and honey for a delicious dessert. ? Make chocolate chip cookies even better with grated carrots added to the mix. Where can you learn more? Visit our health information library at [email or web address]/Tapleto. You can also view health information on Helpa, your personal patient account. Log in or sign up today. Enter F050 in the search box to learn more about Learning About Eating More Fruits and Vegetables. Current as of: March 26, 2017 Content Version: 11.7 ?? 5169-3860 [employer]. Care instructions adapted under license by [facility]. If you have questions about a medical condition or this instruction, always ask your healthcare professional. [employer] disclaims any warranty or liability for your use of this information. Resistance Training With Surgical Tubing: Exercises Your Care Instructions Here are some examples of exercises for resistance training. Start each exercise slowly. Ease off the exercise if you start to have pain. Your doctor or physical therapist will tell you when you can start these exercises and which ones will work best for you. How to do the exercises Side pull 1. Raise both arms overhead, palms of your hands facing forward. 2. Pull one arm down and to the side, bending your elbow as shown, and hold. 3. Slowly reach up again. Repeat with the other arm. 4. Repeat 8 to 12 times with each hand. 5. Rest for a minute, and repeat the exercise. Overhead pull 1. Raise both arms overhead, palms of your hands facing forward. 2. Tighten the tubing by slowly pulling both arms away from center, and hold. 3. Slowly return to the starting position with your arms straight up. 4. Repeat 8 to 12 times. 5. Rest for a minute, and repeat the exercise. Up-down pull 1. Raise both arms overhead. 2. Bend your elbows so that they are shoulder height, and hold the stretched tubing behind or in front of your head. 3. Slowly return to the starting position with your arms straight up. 4. Repeat 8 to 12 times. 5. Rest for a minute, and repeat the exercise. Chest-level pull 1. Raise your arms in front of you to chest level. Your elbows will be bent and held up at about shoulder height. 2. Pull your hands apart, stretching the tubing, and hold. Try to keep your hands up at your chest level, and do not pull your shoulders up toward your ears. 3. Slowly return to your starting position. 4. Repeat 8 to 12 times. 5. Rest for a minute, and repeat the exercise. Hip-level pull 1. Hold your hands at the level of your hips, or near your lap if you are sitting down. 2. Pull your hands apart, stretching the tubing, and hold. 3. Slowly return to your starting position. 4. Repeat 8 to 12 times. 5. Rest for a minute, and repeat the exercise. Follow-up care is a lewis part of your treatment and safety. Be sure to make and go to all appointments, and call your doctor if you are having problems. It's also a good idea to know your test results and keep a list of the medicines you take. Where can you learn more? Visit our health information library at [email or web address]/Zeussinfo. You can also view health information on Helpa, your personal patient account. Log in or sign up today. Enter A581 in the search box to learn more about Resistance Training With Surgical Tubing: Exercises. Current as of: February 15, 2017 Content Version: 11.7 ?? 9718-5515 [employer]. Care instructions adapted under license by [employer]. If you have questions about a medical condition or this instruction, always ask your healthcare professional. [employer] disclaims any warranty or liability for your use of this information. documented in this encounter Progress Notes [place] Marsh MD - 11/19/2017 2:30 PM EDT [facility] Visit Patient Name: Kiya Cummings Date of : 1950 Age: [address] Dallas Rizvi MD Thank you for referring Kiya Cummings to the [facility] for consultation regardingobesity. CHIEF COMPLAINT: Follow-up for Obesity INTERVAL HISTORY / PROGRESS TOWARD GOALS: [x] I reviewed past / interim records including notes and labs. Last seen by me on 10/12/17. Weight has increased 2 pounds since our last visit, and is down 6 pounds overall. At that time, goals included starting a 12 week walking program through the [facility], increasing metformin to 1000 mg PO BID, and trying the 5 bite rule. 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 She has not been walking faithfully, as it has been too hot. She has not been using the 5 bite rule. With regards to exercise, she is walking once per week, typically half a mile over a 30 minute period. 24 hour diet recall: - Brunch: Roast beef, pineapple, watermelon, scrambled egg, 5 chunks of fried potato, cream puff - Dinner: TV dinner - Snacks: None - Drinks: Large glass of V8, water, coffee with a packet of cream, 12 oz Pepsi - Dessert: Maple creemee in a cone PREVIOUS LABS: Lab Results Component Value Date CHLPL 160 06/18/2017 Lab Results Component Value Date HDL 44 06/18/2017 No results found for: LDLCHOL No results found for: TRIG Lab Results Component Value Date CHOLHDL 3.6 06/18/2017 Lab Results Component Value Date HA1C 6.1 (H) 06/18/2017 No results found for: GLUCFASTING Lab Results Component Value Date AST 21 06/18/2017 ALT 18 06/18/2017 [facility] Followup Responses 06/15/2017 URICA - Readiness Score [...] HPI for additional pertinent +/- findings Constitutional: Increased appetite and low energy. Psychiatric: No anxiety, depression VITAL SIGNS: Vitals: 11/19/17 1425 BP: 126/58 Pulse: 76 Resp: 14 SpO2: 94% Weight: 113.1 kg (249 lb 4.8 oz) Height: 161.3 cm (5' 3.5) Body mass index is 43.47 kg/(m^2). Last 5 weight values: Wt Readings from Last 5 Encounters: 11/19/17 113.1 kg (249 lb 4.8 oz) 10/12/17 112.1 kg (247 lb 3.2 oz) 10/02/17 111.1 kg (245 lb) 09/06/17 112.9 kg (248 lb 14.4 oz) 08/13/17 113.4 kg (250 lb) PHYSICAL EXAM: Gen: Alert and active, NAD. + central adiposapthy Skin: Warm, pink, no rashes HEENT: NC/AT, EOMI, clear conjunctiva, MMM Neck: supple and thick CV: RRR, NL S1S2, II/ MIN murmur best heard at LUSB Resp: CTAB, no wheezes/crackles Psych: NL affect today SUMMARY OF VISIT [...] Medical Management Pathway at the [facility]. We had an extended discussion about her resting metabolic rate, and what that translates intoin terms of maintaining a calorie deficit and promoting ongoing weight loss. We will also increase bupropion from 100 mg to 200 mg daily and monitor for associated appetite suppression. ?? Goal setting: ?? No more soda after you finish the last Pepsi at home ?? Begin walking 3 days per week, for 30 minutes, and continue to increase as able; when weather is not good, plan to switch to the treadmill--[facility] 12 Week Walking Program provided ?? 1-2 pieces of fruit per day and 2-3 cups of veggies per day ?? Increase protein at breakfast - limit and avoid cereal - choose instead to make an egg bakes withadded veggies and lean protein ?? Start resistance training with a band, at least 10-15 minutes per day, 3 days per week. Building up muscle mass is the best way to increase your resting metabolic rate. Impaired fasting glucose: ?? Nutrition and activity recommendations to promote healthy weight ?? Medical management recommendations: I agree with the use of metformin in this patient as this drug promotes weight loss--currently at 1000 mg PO BID. If further treatment is indicted, would avoid sulfonylureas and insulin if possible and opt for GLP-1 agonists for the synergistic weight loss effect. LEONARD: ?? Continue BiPAP as prescribed Vitamin D deficiency: ?? Continue replacement and consider repeating level at follow up F/u in: 3 months I spent a total of 30 minutes with the patient 20 minutes of which were spent in [id number] discussion/counseling re obesity, nutrition and activity as well as obesity related co-morbidities documented in this encounter Plan of Treatment Upcoming Encounters Date Type Specialty Care Team Description 11/24/2021 Office Visit Neurology Gregg Lacy MD [place], [place] [address] (Wo rk) 04/06/2022 Appointment Radiology 04/06/2022 Office Visit Orthopaedics Wally Rouse MD [facility] ORTHOPAEDIC SURG [place], [place] [address] (Wo rk) documented as of this encounter Visit Diagnoses Diagnosis Morbid obesity with BMI of 40.0-44.9, ad ult Morbid obesity Depression, unspecified depression type documented in this encounter Care Teams Grounds Restoration Specialist Relationship Specialty Start Date End Date Dallas Rizvi MD PCP - General 02/01/10 02/19/18 [address] [place] [address] documented as of this encounter
--- OUTSIDE RECORDS SUMMARY | 2021-10-13 15:53 | XMS_ITS | Encounter Summary ---
:1950 Author Organization [facility] [place] [address] Care Team Providers Name Role Phone Dallas Rizvi MD Primary Care Provider Encounter Details Date Type Department Care Team Description 10/12/2017 Office Visit Weight and Wellness [place] Marsh, Mor bid obesity with BMI of 40.0-44.9, adult; at [facility] Impaired fasting glucose; [address] [facility] [place] [address] [place] [address] [phone] Social History Tobacco Use Types Packs/Day Years [...] Taken Comments Blood Pressure - - Pulse 83 10/12/2017 2:04 PM EDT Temperature - - Respiratory Rate 14 10/12/2017 2:04 PM EDT Oxygen Saturation 94% 10/12/2017 2:04 PM EDT Inhaled Oxygen Concentration - - Weight 112.1 kg (247 lb 3.2 oz) 10/12/2017 2:04 PM EDT Height 161.3 cm (5' 3.5) 10/12/2017 2:04 PM EDT Body Mass Index 43.1 10/12/2017 2:04 PM EDT documented in this encounter Patient Instructions Patient InstructionsCulvibeth, [place] Cruz MD - 10/12/2017 2:22 PM EDT Images from the original note were not included. GOALS 1) Plan to start back on the treadmill--at least 10 minutes per day, 3 days per week, working up slowly as you are able. 2) Try the 5 bite rule when faced with a sweet treat---take five slow, mindful bites of a treat, as this has shown to produce as much pleasure/happiness as eating an entire serving of dessert 3) Plan to continue to increase protein intake--protein helps you stay full longer 4) Continue to increase metformin: - For the next 2 weeks: take 1000 mg in the morning with food and 500 mg at night with food - After that: take 1000 mg in the morning with food and increase to 1000 mg at night with food You can decrease these doses if you develop persistent stomach upset on the higher doses [facility] 12 Week Walking Program Week Warm-up Brisk walking Cool-down 1 5 [...] 12 5 minutes 30 minutes 5 minutes Follow up with Dr Marsh in 1 month, sooner as needed Learning About Getting More Protein How does your body use protein? Protein is an essential part of our diets. It is made up of chemicals called amino acids. Your body needs protein to help build and repair muscle, skin, and other body tissues. Protein also helps fightinfection, balance body fluids, and carry oxygen through the body. How much protein do you need? How much protein you need each day depends on your age, sex, and how active you are. It's recommended that most adults eat 5 to 7 ounces of protein foods a day. Sometimes you may need to eat more protein. Your doctor may advise you on the right amount of protein you need. What foods contain protein? Protein is found in a variety of foods. High-protein foods include lean meat, poultry, and fish. A serving of these foods is 2 to 3 ounces. (3 ounces is about the size and thickness of a deck of cards.) Protein isn't just found in meat. If you are looking for other types of protein, the following foodsare equal to about 1 ounce of meat: ? cup of cooked beans, peas, or lentils ? cup of tofu (about 2 ounces) ?? 2 Tbsp of hummus ? ounce of nuts or seeds (for example, 12 almonds or 7 walnut halves) ?? 1 egg ?? 1 Tbsp of peanut butter or other nut or seed butter Other sources of protein include cheese, milk, and other milk products. You can also buy protein bars, drinks, and powders. Check the nutrition label for the amount of protein in each serving. What are some tips for getting more protein? You can get more protein in your food by adding high-protein ingredients. For example, you can: ?? Add powdered milk to other foods, such as pudding or soups. ?? Add powdered protein to fruit smoothies and cooked cereal. ?? Add beans to soup and chili. ?? Add nuts, seeds, or wheat germ to yogurt. You can also: ?? Spread peanut butter onto a banana. ?? Mix cottage cheese into noodle dishes or casseroles. ?? Sprinkle hard-boiled eggs on a salad. ?? Grate cheese over vegetables and soups. Where can you learn more? Visit our health information library at [email or web address]/healthinfo. You can also view health information on [email or web address], your personal patient account. Log in or sign up today. Enter X375 in the search box to learn more about Learning About Getting More Protein. Current as of: July 21, 2016 Content Version: 11.7 ?? 8986-4962 [employer]. Care instructions adapted under license by [facility]. If you have questions about a medical condition or this instruction, always ask your healthcare professional. [employer] disclaims any warranty or liability for your use of this information. documented in this encounter Progress Notes [place] Marsh MD - 10/12/2017 2:00 PM EDT [facility] Living Clinic Visit Patient Name: Kiya Cummings Date of : 1950 Age: [address] Dallas Rizvi MD Thank you for referring Kiya Cummings to the [facility] for consultation regardingobesity. CHIEF COMPLAINT: Follow-up for Obesity INTERVAL HISTORY / PROGRESS TOWARD GOALS: [x] I reviewed past / interim records including notes and labs. Last seen by me on 08/13/17, and by our team on 09/06. Weight has decreased 2.5 pounds since our last visit. She has been tolerating her metformin 500 mg PO BID without issue. She reports that she is trying to increase protein intake, especially through increased protein intake and high-protein yogurts. She is also trying to avoid taking seconds at meals. She has stopped buying 20 oz Pepsi bottles and has switched to 12 oz Pepsi. With regards to exercise, she reports that she had been using her treadmill faithfully until she developed diverticulitis. She has not been walking in the last month. 24 hour diet recall: - Breakfast: Special K with a banana and fat-free milk - Lunch: Fried chicken, boiled green beans, salad with a small amount of dressing - Dinner: Eggs and tomatoes and mushrooms and peppers with chicken sausage - Snacks: None - Drinks: Coffee with milk, 12 oz Pepsi - Dessert: Ice cream PREVIOUS LABS: Lab Results Component Value Date CHLPL 160 06/18/2017 Lab Results Component Value Date HDL 44 06/18/2017 No results found for: LDLCHOL No results found for: TRIG Lab Results Component Value Date CHOLHDL 3.6 06/18/2017 Lab Results Component Value Date HA1C 6.1 (H) 06/18/2017 No results found for: GLUCFASTING Lab Results Component Value Date AST 21 06/18/2017 ALT 18 06/18/2017 [facility] Followup Responses 06/15/2017 URICA - Readiness Score [...] +/- findings Constitutional: NL appetite and energy. GI: No nausea,vomiting, diarrhea, constipation, abdominal pain VITAL SIGNS: Vitals: 10/12/17 1404 Pulse: 83 Resp: 14 SpO2: 94% Weight: 112.1 kg (247 lb 3.2 oz) Height: 161.3 cm (5' 3.5) Body mass index is 43.1 kg/(m^2). Last 5 weight values: Wt Readings from Last 5 Encounters: 10/12/17 112.1 kg (247 lb 3.2 oz) 10/02/17 111.1 kg (245 lb) 09/06/17 112.9 kg (248 lb 14.4 oz) 08/13/17 113.4 kg (250 lb) 06/18/17 116.1 kg (255 lb 14.4 oz) PHYSICAL EXAM: Gen: Alert and active, NAD. [...] in the Medical Management Pathway at the [facility]. She continues to make progress with use of metformin, increased physical activity, and ongoing dietary modification. ?? Goal setting: ?? Increase physical activity on the treadmill, using the [facility] 12 Week Walking Guide for reference ?? Try the 5 bite rule when faced with a sweet treat---take five slow, mindful bites of a treat, as this has shown to produce as much pleasure/happiness as eating an entire serving of dessert ?? Plan to continue to increase protein intake--protein helps you stay full longer--educational handout provided Impaired fasting glucose: ?? Medical management recommendations: I agree with the use of metformin in this patient as this drug promotes weight loss. Increase to 1000 mg PO BID over the next 4 weeks as tolerated. LEONARD: ?? Continue BiPAP as prescribed Vitamin D deficiency: ?? Continue replacement and consider repeating level next month F/u in: 1 month I spent a total of 30 minutes with the patient 20 minutes of which were spent in [id number] discussion/counseling re obesity, nutrition and activity as well as obesity related co-morbidities documented in this encounter Plan of Treatment Upcoming Encounters Date Type Specialty Care Team Description 11/24/2021 Office Visit Neurology Gregg Lacy MD [place], [place] [address] (Wo rk) 04/06/2022 Appointment Radiology 04/06/2022 Office Visit Orthopaedics Wally Rouse MD [facility] ORTHOPAEDIC SURG [place], [place] [address] (Wo rk) documented as of this encounter Visit Diagnoses Diagnosis Morbid obesity with BMI of 40.0-44.9, ad ult Morbid obesity Impaired fasting glucose Vitamin D deficiency Unspecified vitamin D deficiency documented in this encounter Care Teams Lacquer Dipping Machine Operator Relationship Specialty Start Date End Date Dallas Rizvi MD PCP - General 02/01/10 02/19/18 [address] [place] [address] documented as of this encounter
--- OUTSIDE RECORDS SUMMARY | 2021-10-13 15:53 | XMS_ITS | Encounter Summary ---
:1950 Author Organization [facility] [place] [address] Care Team Providers Name Role Phone Dallas Rizvi MD Primary Care Provider Reason for Visit Physical Therapy (Routine) - Closed Specialty Diagnoses / Procedures Referred By Contact Refer red To Contact Physical Therapy Diagnoses Urinary and fecal incontinence [facility] CHRISTOPHE Duran [address] [place] [address] [address] [place] [address] Referral ID Status Reason Start Date Expiration Date Visits V isits Requested Authorized [id number] Closed Evaluate and 08/12/2015 08/11/2016 1 1 Treat Encounter Details Date Type Department Care Team Description 08/26/2015 Office Visit Physical Therapy at [facility] Diso rder of muscle, ligament, and fascia; [address] PT Anal sphincter incontinence; [address] [facility] Mixed stress and urge [place] [address] PHYSICAL MEDICINE [phone] & [place] [address] Social History Tobacco Use Types Packs/Day Years Used Date Former Smoker Cigarettes 1 10 Quit: 05/10/18 78 Smokeless Tobacco: Never Used Alcohol Use Standard Drinks/Week Comments No 0 (1 standard drink = 0.6 oz pure alcoho l) Sex Assigned at Date Recorded Female 01/18/2021 7:28 AM EST documented as of this encounter Progress Notes Gavin Cabrera, PT - 08/26/2015 2:47 PM EDT Physical Therapy Initial Evaluation Note: Outpatient Date of Exam/First Treatment: 08/26/2015 Date of onset: 4-6 months Referring Provider: CHRISTOPHE Bishop Diagnosis: 1. Disorder of muscle, ligament, and fascia 2. Anal sphincter incontinence 3. Mixed stress and urge urinary incontinence Medicare Certification period: 08/26/2015 - 11/25/15 History of current problem: Kiya Cummings is a 65 y.o. female referred to physical therapy for muscleweakness with anal incontinence and mixed urinary incontinence. Patient reports she started to notice loss of small pellets of stool without warning. Symptoms started ~4-6 months ago without incident. She has flatal incontinence. Patient reports increased gas and bloating and difficulty managing stoolconsistency. 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 Gynecologic/Obstetric History: : 2 Para: 2 Episiotomy/Tearing/Repair: No weight of largest baby: 8.10 Difficulty healing after delivery: No : No Difficult Childbirth: No History of sexual abuse or trauma: No Regular menstrual cycles: No: hysterectomy ~33 years ago, cystocele and rectocele repair in the early Frequent urinary tract infections: Yes: 6-7/year with positive culture Sexual Dysfunction/Pain: Sexually Active: Yes Pain level with intercourse: Yes Level 1: painful, but able to have penetration at same frequency Level 2: painful and limits frequency Level 3: painful and prevents penetration Pain with: Pelvic exam: No Tampon use: N/A Back, leg, groin and/or abdominal: Yes Test Results: Urodynamics: N Cystoscope: N Urine Tests: N Bowel Tests: N Bladder Function: Leaks with: coughing, laughing, sneezing, exercise, with urge, on way to toilet Number of episodes: daily Severity of leakage: drops, wet underwear and wet outerwear Pain or burning with urination:occasionally Difficulty starting urine stream: No Strain to empty bladder: Yes Feel unable to fully empty bladder: Yes Have a feeling of pelvic heaviness, pressure or falling out: No Have pain with a full bladder: No Have urgency of urination: Yes Pad use and Type (per day): panti liner # daytime voids: 5-6 # episodes of nocturia: 1 Bowel Dysfunction: Frequency of bowel movements: 1-5 per day Consistency of stool: normal, soft and pellets Currently strain to void: No Include fiber in diet: Yes Take laxatives/enema regularly: No Have pain with bowel movements:No Have a strong urge to move bowels:Yes History of Constipation: Yes Have diarrhea often: Yes Ignore the urge to defecate: No Feel you have not completely emptied your bowels at the end of a BM: No Fecal incontinence: Y gas, liquid, formed stool Fluid Intake: 8 glasses per day: water 2 caffeinated beverages: coffee 0 Alcoholic beverages Outcome Measure: Incontinence Severity Index (YOUSIF): 8 Social History: 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, lives with spouse, hobbies/leisure: read or watch TV, regular exercise: not much [...] ani activity with perineal body elevation, with inhalation and abdominal overflow Valsalva: mild, moderate pelvic floor excursion with signs of anterior and posterior laxity Palpation: Non-tender to pelvic clock Internal Exam: Levator ani muscle strength: 3:00 2/5, 6:00 2/5, and 9:00 2/5, slow derecruitment, coordinated with the exhalation Levator ani muscle tone: 2/5, diffuse tenderness Hold Time: 4 seconds, # of reps: 4 Valsalva: mild, moderate pelvic floor excursion with signs of anterior and posterior laxity Rectal Exam: External anal sphincter: anterior thinning, ? deficit of rectal sphincter, strength: 2/5, tone: 2/5,hold time: 4 seconds, Valsalva: mild, moderate pelvic floor excursion, without muscle contraction SEMG: with internal electrode in supine: deferred Resting Rate: uV Quick flicks: uV x reps Long Hold: uV x seconds x reps Assessment: These findings are consistent with underactive pelvic floor muscles with muscle weakness, anal incontinence and mixed urinary incontinence. Patient performs a weak voluntary pelvic floor muscle contraction with voluntary relaxation. Patient presents with impaired pelvic floor muscle and rectal sphincter strength, tone, endurance and motor control. Patient would benefit from pelvic floor muscle training, awareness of habits, management of stool consistency, SEMG, NMEs and HEP. Patient has yearly, recurrent UTIs and may benefit from a consult with Urology or Urogynocology. Goals: Short term goals (4 weeks) 1. Patient to be indep in the performance of a home program of pelvic floor muscle exercises on a daily basis. 2. Patient will demonstrate an increase in pelvic floor muscle endurance from 4 to 10 seconds for 10repetitions. 3. Patient to complete SEMG evaluation. 4. Patient will demonstrate knowledge of toilet positioning and techniques. Goals: skilled nursing goals (3 months) 1. Patient to be independent with ongoing self management. 2. Patient will have decreased number of episodes of fecal incontinence by 25%. 3. ADL???s not limited by UI, urgency or frequency. 4. Patient will have decreased episodes of urinary incontinence by 25%. Frequency: 1 time in 3 weeks for 6 sessions Plan of care: therapeutic exercise, pelvic floor muscle exercises, SEMG, STM/MFR, stretching, patient/family education, home exercise program, relaxation/downtraining, NMEs Informed Consent: The patient consented to the physical therapy evaluation. The patient agrees to and understands the physical therapy treatment plan and goals. Interventions completed today: Initial evaluation, patient education and home exercise program consisting of: PT treatment of constipation, toilet positioning and techniques, diaphragmatic breathing, discussion on the benefits of fiber to help bulk up stools and decrease episodes of fecal incontinence, and pelvic floor muscle exercises: LH ~5 seconds with submaximal contraction, rest 10 seconds with focus on full relaxation, x ~10reps, 2 sessions/day, coordinated with diaphragmatic breathing G-Code: Other PT/OT Primary Status Modifier CURRENT CK - At least 40 percent but less than 60 percent impaired, limited or restricted PROJECTED CJ - At least 20 percent but less than 40 percent impaired, limited or restricted DISCHARGE Not Discharged Yet - Ongoing G Code Rationale: This G-Code and these disability modifiers were selected as the primary therapy goal based upon the patient's evaluation. Current ability measures, co-morbidities and clinical judgement were also used to select the disability modifier. Ms. Cummings's current G-Code functional level is 55% impaired. Medicare Therapy G-Code Date Tracking: (Update G-Code status every 10 visits or when code changes) 1 2 3 4 5 6 7 8 9 10 08/26/15 Total Treatment time: 62 minutes: hanh ortiz re-ed Total Timed Code Treatment: 16 minutes GAVIN CABRERA PT documented in this encounter Plan of Treatment Upcoming Encounters Date Type Specialty Care Team Description 11/24/2021 Office Visit Neurology Gregg Lacy MD [place], [place] [address] (Wo rk) 04/06/2022 Appointment Radiology 04/06/2022 Office Visit Orthopaedics Wally Rouse MD [facility] ORTHOPAEDIC SURG [place], [place] [address] (Wo rk) Scheduled Referrals Name Type Priority Associated Diagnoses Order S chedule Referral to Outpatient Referral Routine Urinary and fecal Ord ered: Physical Therapy incontinence 08/12/2015 documented as of this encounter Visit Diagnoses Diagnosis Disorder of muscle, ligament, and fascia Unspecified disorder of muscle, ligament , and fascia Anal sphincter incontinence Full incontinence of feces Mixed stress and urge urinary incontinen ce Mixed incontinence urge and stress (male )(female) documented in this encounter Care Teams Briar Wood Sorter Relationship Specialty Start Date End Date Dallas Rizvi MD PCP - General 02/01/10 02/19/18 [address] [place] [address] documented as of this encounter
--- OUTSIDE RECORDS SUMMARY | 2021-10-13 15:53 | XMS_ITS | Encounter Summary ---
:1950 Author Organization [facility] [place] [address] Care Team Providers Name Role Phone Ekaterina Omer MD Primary Care Provider Reason for Visit Reason Comments Weight Management Follow-up Encounter Details Date Type Department Care Team Description 02/18/2018 Office Visit Weight and Wellness Florida Marsh, Mor bid obesity with BMI of 40.0-44.9, adult; at [facility] LEONARD on CPAP; [address] [facility] IFG (impaired fasting glucos e) [place] [address] [place] [address] [phone] Social History Tobacco Use Types Packs/Day Years [...] Sign Reading Time Taken Comments Blood Pressure 139/82 02/18/2018 1:32 PM EST Pulse 67 02/18/2018 1:32 PM EST Temperature - - Respiratory Rate 16 02/18/2018 1:32 PM EST Oxygen Saturation 100% 02/18/2018 1:32 PM EST Inhaled Oxygen Concentration - - Weight 109.7 kg (241 lb 14.4 oz) 02/18/2018 1:32 PM EST Height 161.3 cm (5' 3.5) 02/18/2018 1:32 PM EST Body Mass Index 42.17 02/18/2018 1:32 PM EST documented in this encounter Patient Instructions Patient InstructionsCuFlorida mittal MD - 02/18/2018 1:30 PM EST Images from the original note were not included. Increase bupropion to 300 mg daily to suppress appetite and help mood. You have lost 15 pounds in the last 6 months--this is excellent! GOALS: 1) Exercise 30 minutes per day, 6 days per week--combination of walking and biking while in [place];while in [place], use the treadmill 10-15 minutes, 6 days per week. 2) Put up a reminder about exercise while at home in [place]. 3) Increase intake of fruits--one piece of fruit per day. 4) 10-15 minutes of resistance training with bands and weights, 3 days per week. More muscle = higher resting metabolic rate = easier to lose weight while eating more. Follow up with Dr Marsh in 3 months, with appointment with dietitian at the same time. Patient Education Learning About Getting More Protein How does [...] more? Visit our health information library at [email or web address]. You can also view health information on [employer], your personal patient account. Log in or sign up today. Enter X375 in the search box to learn more about Learning About Getting More Protein. Current as of: July 21, 2016 Content Version: 11.7 ?? [id number] [employer]. Care instructions adapted under license by [facility]. If you have questions about a medical condition or this instruction, always ask your healthcare professional. [employer] disclaims any warranty or liability for your use of this information. documented in this encounter Progress Notes Florida Marsh MD - 02/18/2018 1:30 PM EST [facility] Visit Patient Name: Kiya Cummings Date of : 1950 Age: [address] Dallas Rizvi MD Thank you for referring Kiya Cummings to the [facility] for consultation regardingobesity. CHIEF COMPLAINT: Follow-up for Obesity INTERVAL HISTORY / PROGRESS TOWARD GOALS: [x] I reviewed past / interim records including notes and labs. Kiya is participating in our Medical Management Pathway and is here for her 6- month follow up. She was last seen by me on 11/19/17. Weight has decreased 7 pounds since our last visit, and 15 pounds in the last 6 months, for a total body weight loss of 5.8%. At that time, goals included discontinuationof soda use, walking 3 days per week, increasing intake of fruits and vegetables, increased protein at breakfast, and starting resistance training. She was also increased on bupropion 100 mg PO BID for treatment of depression and appetite suppression. She reports that she feels her appetite is down, but has not noted change in her mood. She reports that she has almost stopped drinking soda as of November--currently drinking one every two weeks. She is not adding protein at breakfast. She has been adding more fruits and vegetables into her daily routine--cooking 2 vegetables for dinner every night (peas, corn, green beans, squash, zucchini). With regards to exercise, she reports she was doing well until the snow arrived. She has a treadmilland a recumbent bike, but has not been using them. She has resistance bands at home, but has not been using them. She has been very stressed related to her son's health issues--multiple PE's discovered in the last month. 24 hour diet recall: - Breakfast: Frosted mini wheats cereal with 2% milk - Lunch: 1 cup turkey tetrazini (frozen, 420 calories) - Dinner: 3 scrambled eggs - Snacks: None - Drinks: Water, seltzer water - Dessert: 4 Fig Newtons PREVIOUS LABS: Lab Results Component Value Date CHLPL 160 06/18/2017 Lab Results Component Value Date HDL 44 06/18/2017 No results found for: LDLCHOL No results found for: TRIG Lab Results Component Value Date CHOLHDL 3.6 06/18/2017 Lab Results Component Value Date HA1C 6.1 (H) 06/18/2017 No results found for: GLUCFASTING Lab Results Component Value Date AST 21 06/18/2017 ALT 18 06/18/2017 [facility] Followup Responses 06/15/2017 URICA - Readiness Score [...] HPI for additional pertinent +/- findings Constitutional: Decreased appetite and low energy. Psychiatric: No anxiety, depression VITAL SIGNS: Vitals: 02/18/18 1332 BP: 139/82 Pulse: 67 Resp: 16 SpO2: 100% Weight: 109.7 kg (241 lb 14.4 oz) Height: 161.3 cm (5' 3.5) Body mass index is 42.17 kg/m??. Last 5 weight values: Wt Readings from Last 5 Encounters: 02/18/18 109.7 kg (241 lb 14.4 oz) 12/24/17 112.9 kg (249 lb) 11/19/17 113.1 kg (249 lb 4.8 oz) 10/12/17 112.1 kg (247 lb 3.2 oz) 10/02/17 111.1 kg (245 lb) PHYSICAL EXAM: Gen: Alert and active, NAD. + central adiposapthy Skin: Warm, pink, no rashes HEENT: NC/AT, EOMI, clear conjunctiva, MMM Neck: supple and thick Neuro: Alert and oriented Psych: NL affect today SUMMARY OF VISIT AND RECOMMENDATIONS: Kiya Cruz Emiliano was seen in follow up today and an updated medical, diet and activity review was completed. Additional goals were set for changes in health habits (see below) as was a plan for evaluation and treatment of obesity related co-morbidities. Medical issues and plan: Class X Obesity: ?? Medical Management: The patient is currently participating in the Medical Management Pathway at the [facility], and is seeing slow but persistent success through lifestyle change and use of bupropion. We agreed to the following: ?? Increase bupropion to 300 mg PO daily for depression and appetite suppression ?? Increase morning protein intake (educational handout provided) ?? While in [place], exercise 30 minutes per day, 6 days per week--combination of walking and biking ?? While in [place], use the treadmill 10-15 minutes, 6 days per week. ?? Increase intake of fruits--one piece of fruit per day. ?? 10-15 minutes of resistance training with bands and weights, 3 days per week. Impaired fasting glucose: ?? Nutrition and activity recommendations to promote healthy weight ?? Medical management recommendations: I agree with the use of metformin in this patient as this drug promotes weight loss--currently using metformin 1000 mg PO BID. LEONARD: ?? Continue BiPAP as prescribed F/u in: 3 months--to be combined appointment with dietitian I spent a total of 30 minutes with the patient 20 minutes of which were spent in [id number] discussion/counseling re obesity, nutrition and activity as well as obesity related co-morbidities documented in this encounter Plan of Treatment Upcoming Encounters Date Type Specialty Care Team Description 11/24/2021 Office Visit Neurology Gregg Lacy MD [place], [place] [address] (Wo mandi) 04/06/2022 Appointment Radiology 04/06/2022 Office Visit Orthopaedics Wally Rouse MD [facility] ORTHOPAEDIC SURG [place], [place] [address] (Tulio raymond) documented as of this encounter Visit Diagnoses Diagnosis Morbid obesity with BMI of 40.0-44.9, ad ult Morbid obesity LEONARD on CPAP Obstructive sleep apnea (adult) (pediatr ic) IFG (impaired fasting glucose) Impaired fasting glucose documented in this encounter Care Teams Mounting Inspector Relationship Specialty Start Date End Date Ekaterina Omer MD PCP - General General Internal Medicine 08/23/18 [address] [place] [address] documented as of this encounter
--- OUTSIDE RECORDS SUMMARY | 2021-10-13 15:53 | XMS_ITS | Encounter Summary ---
:1950 Author Organization [facility] [place] [address] Care Team Providers Name Role Phone Dallas Rizvi MD Primary Care Provider Encounter Details Date Type Department Care Team Description 05/17/2017 Hospital Encounter Pulmonology at [facility] (dyspnea on [facility] exertion) [place] [address] Social History Tobacco Use Types Packs/Day [...] Sig Dispensed Refills Start Date End Date ELIQUIS 2.5 mg Tablet Take 2.5 mg by 1 05/10/2017 11/08/2020 mouth 2 times daily. buPROPion (WELLBUTRIN) 100 Take 200 mg by 0 02/2702/18/2018 mg Tablet mouth daily. venlafaxine (EFFEXOR-XR) 75 150 mg. 0 12/29/19 17 10/02/2017 mg Capsule, Sust. Release 24 hr omeprazole 20 mg Tablet, Take 20 mg by 0 06/14/2017 Delayed Release (E.C.) mouth daily. buPROPion (WELLBUTRIN XL) Take 150 mg by 0 06/14/2017 150 mg 24 hr tablet mouth every morning. montelukast (SINGULAIR) 10 0 7 06/18/2017 mg tablet fexofenadine (MARY JO) 180 0 7 06/25/2018 mg tablet levothyroxine (LEVOXYL) 100 0 08/16/19 07 06/25/2018 mcg tablet documented as of this encounter Procedure Notes King Antonio - 05/17/2017 11:14 AM ESTAssociated Order(s): PULMONARY FUNCTION TEST Procedure(s): PULMONARY STRESS TEST - COMPLEX Pre-Procedure Diagnose(s): ROMO (dyspnea on exertion) Images from the original note were not included. CARDIOPULMONARY EXERCISE TEST REPORT SECTION OF PULMONARY/CRITICAL CARE MEDICINE Date of Testin05/17/17 Patient Name: Kiya Cummings Height: 63.42 Weight: 254 lbs Requesting Provider: Dr. Berry Branham Indication for Testing: Dyspnea Baseline Data: ?? Spirometry was normal: ?? Oxygen saturation at rest was 94% on room air ?? Resting blood pressure was 132/84 ?? Twelve-lead ECG at rest showed incomplete RBB and a resting heart rate of 80 beats per minute Exercise Test Protocol: ?? Incremental exercise testing was performed on the freewheel ergometer to a maximum of 130 tovar ?? Total exercise time was 14 minutes 23 seconds ?? The patient achieved 132 tovar of work at peak exercise, or 133% predicted ?? Peak JOSE rating of breathlessness and leg discomfort 3 and 4 respectively ?? Symptoms were recreated and the test was terminated General: ?? Peak VO2 of 17.1 ml/kg/min achieved 115% of predicted ?? Peak RER of 1.17 ?? Peak O2 pulse of 16 ml/beat (139% predicted) ?? Anaerobic threshold occurred at a VO2 of 11.5 ml/kg/min, or 77% of predicted peak VO2 Cardiac: ?? Peak heart rate was 127 beats/minute, or 83% of predicted maximum value (HR reserve 26 bpm) ?? Blood pressure was 142/98 at peak exercise ?? Twelve-lead ECG during exercise showed transient 1-2 mm depressions in the anterolateral leads w/o reciprocal change Respiratory: ?? Peak exercise ventilation was 73.8 liters/minute or 78% of the estimated maximum voluntary ventilation ?? The calculated breathing reserve at peak exercise was 22% (normal >15%) ?? Respiratory rate was 45 breaths per minute at maximal exercise (also recorded elsewhere as RR of 50) ?? Oxygen saturation was 94% at rest and 95% at peak exercise Summary: No obvious cardiac or pulmonary limitations identified in this maximal exercise study. She exceeded her predicted VO2 max, and her effort during the study was reasonable. I do appreciate that her heartreserve was elevated, and that her maximum respiratory rate is recorded as 50 at VO2 max, but I suspect it may have actually plateaued around 45 breaths per minue as indicated on the full recordings page. Very subtle ECG findings appreciated at maximum exercise, can't rule out a component of early cardiovascular disease. Aside from these findings, this was otherwise a grossly normal study. The interpretation was reviewed by attending physician Dr. Mahmood. King Antonio MD, 05/17/2017, 11:16 AM Pulmonary/Critical Care Fellow Pager: [phone] Associated attestation - Jasper Mahmood Jr., MD - 05/18/2017 12:57 PM EST Pulmonary Attending Attestation I reviewed the exercise test performed by Ms. Cummings on 05/17/2017. I discussed my findings with Dr. Antonio, and reviewed his interpretation. I confirm the findings and interpretation as provided above. --Lakesha Mahmood MD documented in this encounter Plan of Treatment Upcoming Encounters Date Type Specialty Care Team Description 11/24/2021 Office Visit Neurology Gregg Lacy MD [place], [place] [address] (Wo rk) 04/06/2022 Appointment Radiology 04/06/2022 Office Visit Orthopaedics Wally Rouse MD [facility] [place], [place] [address] (Wo rk) documented as of this encounter Procedures Procedure Name Priority Date/Time Associated Diagnosis Comme nts PULMONARY FUNCTION Routine 05/18/2017 12:57 PM ROMO (dyspnea on Results for this TEST EST exertion) procedure are i n the results section. documented in this encounter Results Pulmonary Function Testing (05/18/2017 12:57 PM EST) Narrative Jasper Mahmood Jr., MD - 05/18/2017 12 :57 PM EST King Antonio MD ? 05/18/2017 ??8:03 AM ? CARDIOPULMONARY EXERCISE TE ST REPORT SECTION OF PULMONARY/CRITICAL CARE MEDIC INE Date of Testin05/17/17 Patient Name: ??Kiya Cummings ? Height: 63.42 Weight: 254 lbs Requesting Provider: Dr. Berry Branham Indication for Testing: Dyspnea Baseline Data: ?? Spirometry was normal: ? Oxygen saturation at rest was 94% on room air ?? Resting blood pressure was 132/84 ?? Twelve-lead ECG at rest showed incomp lete RBB and a resting heart rate of 80 beats per minute Exercise Test Protocol: ?? Incremental exercise testing was perf ormed on the freewheel ergometer to a maximum of 130 tovar ?? Total exercise time was 14 minutes 23 seconds ?? The patient achieved 132 tovar of wor k at peak exercise, or 133% predicted ?? Peak JOSE rating of breathlessness an d leg discomfort 3 and 4 respectively ?? Symptoms were ??recreated and the erika t was terminated General: ?? Peak VO2 of 17.1 ml/kg/min achieved 1 15% of predicted ?? Peak RER of 1.17 ?? Peak O2 pulse of 16 ml/beat (139% pre dicted) ?? Anaerobic threshold occurred at a VO2 of 11.5 ml/kg/min, or 77% of predicted peak VO2 Cardiac: ?? Peak heart rate was 127 beats/minute, or 83% of predicted maximum value (HR reserve 26 bpm) ?? Blood pressure was 142/98 at peak exe rcise ?? Twelve-lead ECG during exercise showe d transient 1-2 mm depressions in the anterolateral leads w /o reciprocal change Respiratory: ?? Peak exercise ventilation was 73.8 li ters/minute or 78% of the estimated maximum voluntary ventilation ?? The calculated breathing reserve at p eak exercise was 22% (normal >15%) ?? Respiratory rate was 45 breaths per m inute at maximal exercise (also recorded elsewhere as RR of 50) ?? Oxygen saturation was 94% at rest and 95% at peak exercise Summary: No obvious cardiac or pulmonary limitati ons identified in this maximal exercise study. She exceeded her predicted VO2 max, and her effort during the study was reasonab le. I do appreciate that her heart reserve was elevated, and that her maximum respiratory rate is recorded as 50 at VO2 max, but I suspect it may have actually plateaued around 45 breaths per minue as indicated on the full recordings page. Very subtle EC G findings appreciated at maximum exercise, can't rule out a compo nent of early cardiovascular disease. Aside from these findings, this was otherwise a grossly normal study. The interpretation was reviewed by atten ding physician Dr. Mahmood. King Antonio MD, 05/17/2017, 11:16 AM Pulmonary/Critical Care Fellow Pager: [phone] Berry Branham MD PFT ORDERABLES documented in this encounter Visit Diagnoses Diagnosis ROMO (dyspnea on exertion) Other dyspnea and respiratory abnormalit y documented in this encounter Care Teams Resource Efficiency Manager Relationship Specialty Start Date End Date Dallas Rizvi MD PCP - General 02/01/10 02/19/18 [address] [place] [address] documented as of this encounter
--- OUTSIDE RECORDS SUMMARY | 2021-10-13 15:53 | XMS_ITS | Encounter Summary ---
:1950 Author Organization [facility] [place] [address] Care Team Providers Name Role Phone Dallas Rizvi MD Primary Care Provider Reason for Referral Consultation (Routine) - Specialty Diagnoses / Procedures Referred By Contact Refer red To Contact Weight and Wellness Diagnoses Morbid obesity with BMI of 40.0-44.9, adult Berry Branham MD [facility] [address] [place] [phone] Fax: Referral ID Status Reason Start Date Expiration Date Visits V isits Requested Authorized [id number] Consult, 04/18/2017 04/18/2018 1 1 Test & Treat Encounter Details Date Type Department Care Team Description 04/18/2017 Office Visit Pulmonology at [facility] Berry Branham DOE (dyspnea on exertion) (P rimary Dx); [facility] Pulmonary nodules; [facility] pulmonary embolism; [facility] Elevated d-dimer; [phone] Pulmonary Morbid obesity with BMI of 4 0.0-44.9, adult; [phone] [facility] Obesity hypoventilation syndrome; [place], [place] LEONARD treated wit h BiPAP [id number] Social History Tobacco Use Types Packs/Day Years [...] Sign Reading Time Taken Comments Blood Pressure 160/76 04/18/2017 9:37 AM EST Pulse 70 04/18/2017 9:37 AM EST Temperature - - Respiratory Rate 20 04/18/2017 9:37 AM EST Oxygen Saturation 96% 04/18/2017 9:37 AM EST Inhaled Oxygen Concentration - - Weight 111.1 kg (245 lb) 04/18/2017 9:37 AM EST Height 165.1 cm (5' 5) 04/18/2017 9:37 AM EST Body Mass Index 40.77 04/18/2017 9:37 AM EST documented in this encounter Patient Instructions Patient InstructionsBerry Branham MD - 04/18/2017 10:00 AM EST It was great to see you again today. I feel these are the major issues/diagnoses related to this visit: ??? ROMO (dyspnea on exertion) ??? Hx pulmonary embolism ??? Elevated d-dimer ??? Morbid obesity with BMI of 40.0-44.9, adult ??? LEONARD treated with BiPAP Here is a brief summary of the plan we discussed: ?? Make an follow up appointment when you check out. ?? Follow up for CPET ?? Follow up with [facility] ?? Start anticoagulation rivaroxaban Please let me know if you have any difficulty obtaining these medications or if the cost is too expensive for you. Also let me know if you are having any unanticipated or severe side effects. Our office phone number is [phone]. If you have not already done so, please consider signing up for myD-H. Directions are included in your after visit summary. Sincerely, Berry Branham documented in this encounter Progress Notes Berry Branham MD - 04/18/2017 10:00 AM EST Images from the original note were not included. [facility] Section of Pulmonary and Critical Care Medicine Outpatient Consultation Date of Encounter: 04/18/2017 Referring Provider: Dallas Rizvi MD [address] [place] [address] Reason for Evaluation: Ms. Kiya Cummings returns to the [facility] today tofollow up dyspnea on exertion. She was last seen 02/15/2017. I independently interviewed and examinedthe patient in the office and have reviewed available records. History of Present Illness: Since our last visit in February Ms. Cummings reports that she continues to have significant dyspnea on exertion. She feels that her dyspnea has worsened somewhat and she occasionally reports feeling shortof breath while at rest. She does note feeling more tired and that her thinking is foggy. 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 She also notes some increasing coughing. She recently had a repeat sleep study done there was recommendation to increase nocturnal oxygen but this is not yet been completed. She continues to use BiPAP ventilation nightly. She reports that her sleep quality has been somewhat variable sometimes sleeping 4 hours other times sleeping 10. No other changes in her health status or her medications. She feels that her depression is been well controlled with venlafaxine. She was away on a vacation for approximately 2 weeks in [place]; while there she found herself more easily fatigued and less tolerant of exercise. She was not able to write her tricycle as far easily as she used to. I reviewed medical, surgical family and social [...] the 80s with exertion. Recent follow-up at [facility] she was noted to have [...] with oral montelukast alone. She takes an hbxv-[id number]-yddcbdt antihistamine primarily for pruritus. At baseline she experiences dyspnea on exertion with mild activity which limits exertional toleranceto walking. She does not have limitations in activities of daily living. She currently is on oxygen at 4 L/min via bleed-in with her BiPAP which he uses only at nighttime. She has been followed in the past by [facility]. Other history is notable for an [...] her ability to exert herself.She vacations in [place] she often arrives 3-wheel bicycle around and is more active. Past Medical and Surgical History: Past Medical History: Diagnosis Date ??? Allergy 1979 sulfur and 2013 sipro ??? Asthma 1977 Mild intermittant ??? Cataract ??? Diverticulitis 2004 ??? ENT disease 2009 tinnitus ??? GERD (gastroesophageal reflux disease) ??? Hypothyroid ??? Mental or behavioral problem 1999 depression ??? Musculoskeletal disease 1999 arthritis in hands and toes ??? Pulmonary embolism 2011 ??? Pulmonary nodules ??? Urinary disorder 1985 bladder infections ??? Varicose veins of left lower extremities Past Surgical History: Procedure Laterality Date ??? PRO EXCISE EXCESS SKIN TISSUE, ABDOMEN N/A 03/06/2014 ABDOMINOPLASTY performed by Marcos Vance MD at [facility] MAIN OR ??? PRO UNLISTED PROCEDURE, [...] Social History Narrative Ms. Cummings lives in [place], [place] with her . 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 She has prior history of radon exposure but this is since been mitigated in her home. She has not had 6 significant occupational exposures to dusts or fumes although there is an incidental exposures or work. She has 2 adult children. She and her frequently winter in [place].04/18/2017 Current Medications: Current Outpatient Prescriptions on File Prior to Visit Medication Sig Dispense Refill ??? venlafaxine (EFFEXOR-XR) 75 mg Capsule, Sust. Release 24 hr 0 ??? omeprazole 20 mg Tablet, Delayed Release (E.C.) Take 20 mg by mouth daily. ??? buPROPion (WELLBUTRIN XL) 150 mg 24 hr tablet Take 150 mg by mouth every morning. ??? montelukast (SINGULAIR) 10 mg tablet ??? fexofenadine (MARY JO) 180 mg tablet ??? levothyroxine (LEVOXYL) 100 mcg tablet No current facility-administered medications on file prior to visit. Adverse Drug Reactions: Allergies Allergen Reactions ??? Sulfa (Sulfonamide Antibiotics) Hives Review of Systems: An 11-point ROS was negative except per the HPI. Physical Examination: BP 160/76 Pulse 70 Resp 20 Ht 165.1 cm (5' 5) Wt 111.1 kg (245 lb) SpO2 96% BMI 40.77 kg/m2 Physical Exam Constitutional: She is oriented [...] Total IgE was 255 kU/L. Imaging: I personally reviewed imaging from 04/19/2012. This study showed no significant structural lung disease. Or some small pulmonary nodules and likely an intrapulmonary lymph node that are not viewed with concern had been stable per report on follow-up imaging. Understand that a CT angiogram of her chest was obtained more recently at [facility]. Will obtain this imaging for review. There is able to review CT scan from 11/23/2015 which did not show evidence of pulmonary embolism. Has been provided me with a copy of the radiology report from 12/15/16 which I reviewed. No evidence of PE on this study the radiologist described a 6 mm right middle lobe nodule present on imaging but appeared to have grown in size. Repeat imaging was recommended in 3 to 6 months. Pulmonary Function Tests: Date FVC FEV1 Ratio [...] which is typical in patients with low ER. Echocardiogram: 12/30/2016 Estimated LVEF greater than 70% right ventricular function was normal. RVSP was estimated at 30 mmHgthe mitral valve E/A ratio 0.96. Impression and Plan of Care: This is a middle-aged woman with history of mild asthma, unprovoked pulmonary embolism seen today for progressive dyspnea on exertion in setting of BMI of 41 kg/(m^2). 1. ROMO (dyspnea on exertion) Etiology of her dyspnea is unclear. Lung function test are normal. There is no evidence of cardiac dysfunction on her recent echocardiogram and her proBNP is low. Persistent dyspnea is not uncommon after pulmonary embolism but does not fit well within the expected timeframe of her symptoms. I expect that a significant portion of her dyspnea is related to physical deconditioning. At this point in timeI think it would be helpful to proceed to cardiopulmonary stress test to assess for any physiologic cause of dyspnea as well as potential deconditioning. - Cardiopulmonary stress test - pro-Brain Natriuretic Peptide 2. Pulmonary nodules Previously observed nodules are not viewed with concern atypical for malignant process. Will requestimaging from [place] to decide on need for follow-up imaging. This is not been ordered her recommendation had been for repeat imaging in 3-6 months this would be inappropriate if the nodule growth had been observed. 3. Hx pulmonary embolism 4. Elevated d-dimer Given her history of provoked pulmonary embolism persistently elevated d-dimer she is at risk for recurrence of pulmonary embolism. We had extensive discussion about the relative risk and benefits of therapeutic anticoagulation we also discussed various options we elected to pursue treatment with reduced intensity rivaroxaban indefinitely. Because she has not had recurrent thromboembolism I encourageother providers to feel comfortable interrupting this therapy as is necessary for procedures or other interventions with risk of bleeding. - rivaroxaban (XARELTO) 10 mg Tablet; Take 2 tablets by mouth daily. Dispense: 30 tablet; Refill: 11 5. Morbid obesity with BMI of 40.0-44.9, adult While I am always reluctant to attribute dyspnea to obesity alone, I do think Ms. Cummings's excess weight is contributing to her symptoms as well as a hypoventilation syndrome (see below). Beyond this irrespective because of dyspnea think she would experience less dyspnea close return ideal body weight. We discussed her struggle to manage her weight with diet and exercise. We agreed on referral to the [facility]. - Referral to [facility] 6. Obesity hypoventilation syndrome 7. LEONARD treated with BiPAP Venous blood gas today showed an elevated PCO2 at 60. This supports a diagnosis of obesity hypoventilation syndrome. Recommend continued follow-up with her sleep providers as well as weight loss (see #5). Return to clinic in 2 months. Berry Branham MD, PhD [facility] PULMONOLOGY AT [facility] [id number] Dept: [phone] Loc: [phone] documented in this encounter Plan of Treatment Upcoming Encounters Date Type Specialty Care Team Description 11/24/2021 Office Visit Neurology Gregg Lacy MD [place], [place] [address] (Wo rk) 04/06/2022 Appointment Radiology 04/06/2022 Office Visit Orthopaedics Wally Rouse MD [facility] ORTHOPAEDIC SURG [place] [address] (Wo rk) Scheduled Referrals Name Type Priority Associated Diagnoses Order S chedule Referral to Weight Outpatient Referral Routine Morbid obesity with Ordered: [facility] BMI of 40.0-44.9, 04/18 adult documented as of this encounter Procedures Procedure Name Priority Date/Time Associated Comments Diagnosis PRO-BRAIN NATRIURETIC Routine 04/18/2017 11:12 ROMO (dyspnea on Results for this PEPTIDE AM EST exertion) procedure are i n the results section. BLOOD GAS VENOUS Routine 04/18/2017 11:12 ROMO (dyspnea on Resu lts for this ([facility]) AM EST exertion) procedure are i n the results section. BASIC METABOLIC PANEL Routine 04/18/2017 11:12 ROMO (dyspnea on Results for this (NON-FASTING) AM EST exertion) procedure are in the results section. documented [...] 05/17/2017, 11:16 AM Pulmonary/Critical Care Fellow Pager: [phone] Berry Branham MD PFT ORDERABLES (ABNORMAL) Basic Metabolic Panel (non-fasting) (04/18/2017 11:12 AM EST) athologist Signature Glucose Lvl 117 65 - 199 [facility] mg/dL [facility] Comment: Diabetes: >=200 mg/dL plus symp toms BUN 28 (H) 8 - 18 mg/dL [facility] Creatinine 0.99 0.70 - 1.20 mg/dL [facility] Sodium 139 135 - 145 mmol/L [facility] Potassium 4.6 3.5 - 5.0 mmol/L [facility] Comment: Please note: ??Patients with WBC >100,00 0 may have falsely elevated Potassium levels. ??For accurate Potassium quantif ication in these patients send serum separator tube (gold top) for subsequent determinations. ??Contact the Clinical Chemistry Laboratory if there are any qu estions. Chloride 98 98 - 107 mmol/L [facility] CO2 28 22 - 31 mmol/L [facility] Anion Gap 13 5 - 15 mmol/L [facility] Calcium 9.6 8.5 - 10.5 mg/dL [facility] Estimated GFR 56 (L) >=60 [facility] Comment: The reported eGFR should be multiplied b y 1.2 for patients. The MDRD is not an appropriate measure o f renal function for patients with body mass extremes or in patients with acute kidney failure. http://Self Point/DHnkdep http://Self Point/DHMCnkf Specimen Anatomical Collection Method Collection Time Receive d Time (Source) Location / / Volume Laterality Blood specimen 04/18/2017 11:12 8 (specimen) AM EST 11:18 AM EST Resulting Agency Comment Spec In Lab Berry Branham MD CHEMISTRY ORDERABLES Performing Organization Address City/State/[place] [address] pro-Brain Natriuretic Peptide (04/18/2017 11:12 AM EST) P athologist Signature ProBNP 19 <=125 pg/mL [facility] Specimen Anatomical Collection Method Collection Time Receive d Time (Source) Location / / Volume Laterality Blood specimen 04/18/2017 11:12 8 (specimen) AM EST 11:18 AM EST Resulting Agency Comment Spec In Lab Berry Branham MD CHEMISTRY ORDERABLES Performing Organization Address City/State/[place] [address] (ABNORMAL) Blood Gas Venous (04/18/2017 11:12 AM EST) P athologist Signature pH Margarito 7.34 7.32 - [facility] 7.42 [facility] pCO2 Margarito 60 (H) 41 - 51 [facility] pO2 Margarito 23 (L) 25 - 40 [facility] HCO3 Margarito 31.7 mmol/L [facility] BE Margarito 5.9 mmol/L [facility] Hgb Blood Gas 15.1 11.7 - [facility] 15.5 gm/dL [facility] Comment: Interpret with caution, 1 ml syringe may give rise to occasional discrepant Hgb results.04/18/17 11:21 O2HB Margarito 35.6 % [facility] COHB Margarito 1.0 % [facility] Comment: Nonsmokers: 0.5-1.5% COHB Smokers: Variable, but usually less than 10% Toxic: 20-30% COHB Lethal: Greater than 60% COHB METHB Margarito 0.3 <=1.5 % [facility] Na Whole Blood 140 135 - 145 mmol/L [facility] K Whole Blood 4.6 3.5 - 5.0 mmol/L [facility] Comment: Please note: Patients with WBC >100,000 may have falsely elevated Potassium levels. Contact the Clinical Chemistry L aboratory if there are any questions. ICa Whole Blood 1.25 1.15 - 1.33 mmol/L [facility] Comment: Note: ??Total bilirubin higher than 20 m g/dL may lead to falsely low ionized calcium. CL Whole Blood 100 98 - 107 mmol/L [facility] Gluc Whole Bld 105 65 - 199 mg/dL [facility] Comment: Diabetes: >=200 mg/dL plus symp toms Lactate WB 2.0 0.5 - 2.2 mmol/L [facility] BGas Source Venous [facility] Specimen Anatomical Collection Method Collection Time Receive d Time (Source) Location / / Volume Laterality Blood specimen 04/18/2017 11:12 8 (specimen) AM EST 11:17 AM EST Resulting Agency Comment Spec In Lab Berry Branham MD CHEMISTRY ORDERABLES Performing Organization Address City/State/[place] [address] documented in this encounter Visit Diagnoses Diagnosis ROMO (dyspnea on exertion) - Primary Other dyspnea and respiratory abnormalit y Pulmonary nodules Other nonspecific abnormal finding of gilmer ng field Hx pulmonary embolism Personal history of pulmonary embolism Elevated d-dimer Abnormal coagulation profile Morbid obesity with BMI of 40.0-44.9, ad ult Morbid obesity Obesity hypoventilation syndrome LEONARD treated with BiPAP ROMO (dyspnea on exertion) Other dyspnea and respiratory abnormalit y documented in this encounter Care Teams Fish Processor Relationship Specialty Start Date End Date Dallas Rizvi MD PCP - General 02/01/10 02/19/18 [address] [place] [address] documented as of this encounter
--- OUTSIDE RECORDS SUMMARY | 2021-10-13 15:53 | XMS_ITS | Encounter Summary ---
:1950 Author Organization [facility] [place] [address] Care Team Providers Name Role Phone Dallas Rizvi MD Primary Care Provider Reason for Visit Reason Comments Referral Consultation (Routine) - Closed Specialty Diagnoses / Procedures Referred By Contact Refer red To Contact Pulmonology Diagnoses Dyspnea Dyspnea aDllas Rizvi MD [facility] 5c Procedures consult [address] [place] [address] [place] [address] Fax: Referral ID Status Reason Start Date Expiration Date Visits Requ ested Visits Authorized [id number] Closed 01/26/2017 01/26/2018 1 1 Encounter Details Date Type Department Care Team Description 02/15/2017 Office Visit [place] [facility] [place] Branham DOE (dyspnea on exertion) (P rimary Dx); [facility] Exercise hypoxemia; [facility] Morbid obesity with BMI of 4 0.0-44.9, adult; [place] [address] [place] pulmonary embolism; [phone] Pulmonary Elevated d-dime r; Medicine LEONARD treated with BiPAP; [place], [place] [address] Mild intermittent asthma without complic ation; [phone] Atopy; (Work) At risk for diabetes mellitus; [phone] Pulmonary nodul es (Fax) Social History Tobacco Use Types Packs/Day Years [...] Sign Reading Time Taken Comments Blood Pressure 151/69 02/15/2017 7:54 AM EST Pulse 66 02/15/2017 7:54 AM EST Temperature - - Respiratory Rate 20 02/15/2017 7:54 AM EST Oxygen Saturation 98% 02/15/2017 7:54 AM EST Inhaled Oxygen Concentration - - Weight 113.4 kg (250 lb) 02/15/2017 7:54 AM EST Height 165.1 cm (5' 5) 02/15/2017 7:54 AM EST Body Mass Index 41.6 02/15/2017 7:54 AM EST documented in this encounter Patient Instructions Patient InstructionsBerry Branham MD - 02/15/2017 8:00 AM EST I was nice to meet you today. I think these are the major issues related to this visit: Encounter Diagnoses Name Primary? ROMO (dyspnea on exertion) Yes ??? Exercise hypoxemia mild ??? Hx pulmonary embolism ??? Elevated d-dimer ??? LEONARD treated with BiPAP ??? Mild intermittent asthma without complication ??? At risk for diabetes mellitus Plan: Blood work I will obtain old records Okay to go to [place] I will follow up once I have records Berry Velez documented in this encounter Progress Notes Berry Branham MD - 02/15/2017 8:00 AM EST Images from the original note were not included. [facility] Section of Pulmonary and Critical Care Medicine Outpatient Consultation Date of Encounter: 02/15/2017 Referring Provider: [place] [address] Reason for Evaluation: Dallas Rizvi MD referred . Kiya Cummings to me to evaluate and manage dyspnea on exertion. I independently interviewed and examined the patient in the office and have reviewed available records. She was previously seen in the clinic by Dr. Pittman for pulmonary nodules and was last seen 04/19/2012 History of Present Illness: Ms. Cummings is here for evaluation of progressive dyspnea on exertion she characterizes as cannot get enough air. Her difficulty with dyspnea began in mid November 2016, and has been gradually worsening since onset. She has not had similar shortness of breath in the past and the dyspnea is different than what she had experienced in the past when her asthma was uncontrolled. Her symptoms waxed and waned to some degree with good days and bad days. She has not had any significant exacerbations that have required hospitalization. Related symptoms include occasional wheezing, nonproductive cough and fatigue (probably better characterized as a loss of stamina). She also has a home pulse oximeter and hasdescribed oxygen saturations into the 80s with exertion. Recent follow-up at [facility] she wasnoted to have an elevated d-dimer and a CTA was performed. By report there was no evidence of pulmonary embolism on this study but neither the imaging nor the testing are not available. She also reports having a normal echocardiogram at that time. She denies not describe any preceding events and therehave been no changes in medications or acute illness. Beyond exertion, her dyspnea is also triggeredby exertion and smoke. Dyspnea is alleviated by rest. As yet she has not been prescribed medicationsfor her dyspnea. Asthma has been under good control with oral montelukast alone. She takes an piml-reb-dubkvin antihistamine primarily for pruritus. At baseline she experiences dyspnea on exertion with mild activity which limits exertional toleranceto walking. She does not have limitations in activities of daily living. She currently is on oxygen at 4 L/min via bleeding with her BiPAP which he uses only at nighttime. She has been followed in the past by [facility] [place] [...] ABDOMINOPLASTY performed by Marcos Vance MD at [facility] MAIN OR ??? PRO UNLISTED [...] Social History Narrative Ms. Cummings lives in [place], [place] with her . 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 She has prior history of radon exposure but this is since been mitigated in her home. She has not had 6 significant occupational exposures to dusts or fumes although there is an incidental exposures or work. She has 2 adult children. She and her frequently winter in [place].02/15/2017 Current Medications: Current Outpatient Prescriptions on File [...] except per the HPI. Physical Examination: BP 151/69 Pulse 66 Resp 20 Ht 165.1 cm (5' 5) Wt (!) 113.4 kg (250 lb) SpO2 98% BMI 41.6 kg/m2 BP generally weel controlled Physical Exam Constitutional: She is oriented to person, place, and time. Vital signs are normal. She appears well-developed and well-nourished. She is cooperative. She does not appear ill. HENT: Head: Normocephalic and atraumatic. Right Ear: Tympanic membrane, external ear and ear canal normal. Left Ear: Tympanic membrane, external ear and ear canal normal. Nose: Septal deviation present. No mucosal edema, rhinorrhea or sinus tenderness. Right sinus exhibits no maxillary sinus tenderness and no frontal sinus tenderness. Left sinus exhibits no maxillary sinus tenderness and no frontal sinus tenderness. Mouth/Throat: Uvula is midline, oropharynx is clear and moist and mucous membranes are normal. Mucous membranes are not pale, not dry and not cyanotic. No oral lesions. No oropharyngeal exudate, posterior oropharyngeal edema, posterior oropharyngeal erythema or tonsillar abscesses. Eyes: Conjunctivae, EOM and lids are normal. Pupils are equal, round, and reactive to light. No scleral icterus. Neck: No hepatojugular reflux and no JVD present. No tracheal tenderness present. No tracheal deviation present. No thyroid mass and no thyromegaly present. JVP difficult to assess Cardiovascular: Normal rate, regular rhythm, S1 normal and S2 normal. Exam reveals no gallop and no friction rub. No murmur heard. Pulmonary/Chest: Breath sounds normal. No accessory muscle usage or stridor. No respiratory distress. Abdominal: Soft. Normal appearance. There is no hepatosplenomegaly. There is no tenderness. Musculoskeletal: She exhibits no edema. Lymphadenopathy: Head (right side): No submental, no submandibular and no tonsillar adenopathy present. Head (left side): No submental, no submandibular and no tonsillar adenopathy present. She has no cervical adenopathy. Neurological: She is alert and oriented to person, place, and time. Coordination and gait normal. Skin: Skin is warm, dry and intact. Psychiatric: She has a normal mood and affect. Her speech is normal and behavior is normal. Labs: I personally reviewed relevant laboratory results which were significant for normal white blood cellcount at 4.4 and a normal hemoglobin at 14.1. MCV was trivially elevated at 95. Differential count was normal. His normal renal function with a creatinine of 1.01. BUN is not concerning the elevated. Total plasma CO2 was 28. Quantitative d-dimer was 978 ng/mL. Imaging: I personally reviewed imaging from 04/19/2012. This study showed no significant structural lung disease. Or some small pulmonary nodules and likely an intrapulmonary lymph node that are not viewed with concern had been stable per report on follow-up imaging. Understand that a CT angiogram of her chest was obtained more recently at [facility]. Will obtain this imaging for review. Pulmonary Function Tests: Date FVC FEV1 Ratio TLC RV RV/TLC ERV DLCO 6MWT 01/02/17 2.97 97% 2.47 106% 0.83 4.59 94% 1.55 84% 0.34 90% 0.47 55% 20.62 100% I personally reviewed flow-volume loops and other tests. Results are most consistent with normal physiology. No diffusion impairment present. These are similar to past PFTs. The low ERV is typical for body mass index 41.6 kg/(m^2). Tidal breathing loops impinge upon for sleep which is typical in patients with low ER. Impression and Plan of Care: This is a middle-aged woman with history of mild asthma, unprovoked pulmonary embolism seen today for progressive dyspnea on exertion in setting of BMI of 41 kg/m??. 1. ROMO (dyspnea on exertion) 2. Exercise hypoxemia Etiology of Ms. Xiongs dyspnea and exercise hypoxemia are not immediately apparent from the available data though her history is typical of patients to experience dyspnea hypoxemia as a consequence of an obese body habitus. Her lung function tests do not demonstrate obstructive disease as would be expected and uncontrolled asthma. Total lung capacity is preserved arguing against the presence of any interstitial lung disease. While the diffusion capacity is normal, has decreased somewhat from when itwas last checked in 2011. Elevated diffusion capacity is sometimes seen in asthma but is uncommon alone in obesity. While recent imaging is not available by her descriptions I suspect that she has a substantial amount of atelectasis which can contribute to hypoxemia. Pulmonary vascular disease is a consideration. Be helpful to review her recent CT pulmonary angiogram and echocardiogram and I will request these studies from [facility]. - Obtain CTA and echocardiogram from [facility] 3. Morbid obesity with BMI of 40.0-44.9, adult As noted above excess weight may be contributing to at least some of Ms. Cummings's respiratory symptomsas well as her knee pain. She would likely benefit from weight loss and has had success with dietaryinterventions in the past I encouraged her to attempt these again. I offered referral to nutrition which she declined at this time but may consider in the future. She may be a good candidate for pharmacological adjuncts for weight loss. - Recommend weight loss 4. Hx pulmonary embolism 5. Elevated d-dimer By all accounts Ms. Trivedi pulmonary embolism was unprovoked. She was anticoagulated for a period of one year with warfarin. In a patient without significant bleeding risk factors I generally recommend indefinite anticoagulation for unprovoked pulmonary embolism. Moreover, her d-dimer has now been elevated now on two occasions off anticoagulation. Both meta-analysis (Ka[employer] Med. 2010;153(8):523.) and prospective trials (PROLONG II: Blood. 2010;115(3):481.) suggest that patients with persistently elevated d-dimer off anticoagulation have a higher rate of recurrence. Most importantly, anticoagulation of patients with persistently elevated d-dimer reduces the risk of recurrence (Blood. 2014; 124(2):196-203.). Her HAS-BLED score is low. On the basis of this information I recommend indefinite anticoagulation. Data are limited about the efficacy of direct oral anticoagulants (DOACs) for patient with BMI >40 or weight >120 kg; however, because BMI is borderline and weight is less than 120 kg and the safety profile is probably favorable to warfarin, attempting therapy with DOAC first is appropriate. Either rivaroxaban and apixaban would be appropriate first line choices. - D-Dimer, Quantitative - Recommend indefinite anticoagulation 6. LEONARD treated with BiPAP Recommend continued use of nocturnal BiPAP with oxygen bleed and I understand from her history that she is scheduled for repeat sleep study because of persistent nocturnal hypoxemia. It is likely she experiences worsening of peripheral atelectasis when supine and sleeping. Be helpful to evaluate whether or not she experiences improved oxygenation with an increased EPAP level. I will defer to her sleep specialist. Bicarbonate obtained on the chemistry today is not especially elevated but there is likely very mild hypoventilation to produce a total CO2 of 28. - Basic Metabolic Panel (non-fasting) 7. Mild intermittent asthma without complication 8. Atopy Asthma symptoms are apparently well controlled with montelukast alone. She does have considerable ectopic symptoms and itching. There is no significant peripheral eosinophilia on the differential counttoday. We will follow-up the IgE level was obtained for asthma phenotyping. In the past she has not had significantly elevated levels of exhaled nitric oxide. - CBC (with Diff) - Immunoglobulin E (IgE) 9. At risk for diabetes mellitus No hyperglycemia observed on the CBC today. There is no strong family history of diabetes [id number] has not previously been evaluated. 10. Pulmonary Nodules Previously stable will follow up with repeat imaging. Return to clinic in 2 months. Berry Branham MD, PhD N [facility] PULMONOLOGY AT [facility] [address] Dept: [phone] Loc: [phone] documented in this encounter Plan of Treatment Upcoming Encounters Date Type Specialty Care Team Description 11/24/2021 Office Visit Neurology Gregg Lacy MD [place], [place] [address] (Wo rk) 04/06/2022 Appointment Radiology 04/06/2022 Office Visit Orthopaedics Wally Rouse MD [facility] [place], [place] [address] (Wo rk) documented as of this encounter Procedures Procedure Name Priority Date/Time Associated Diagnosis Comme nts IMMUNOGLOBULIN E (IGE) Routine 02/15/2017 9:40 Mild intermitte nt Results for this AM EST asthma without procedure are in complication the results Atopy section. HEMOGRAM Routine 02/15/2017 9:40 Mild intermittent Results for this AM EST asthma without procedure are in complication the results Atopy section. DIFFERENTIAL, Routine 02/15/2017 9:40 Mild intermittent Result s for this AUTOMATED AM EST asthma without procedure are in complication the results Atopy section. D-DIMER, QUANTITATIVE Routine 02/15/2017 9:40 Hx pulmonary Res ults for this AM EST embolism procedure are in Elevated d-dimer the results section. CBC (WITH DIFF) Routine 02/15/2017 9:40 Mild intermittent AM EST asthma without complication Atopy BASIC METABOLIC PANEL Routine 02/15/2017 9:40 ROMO (dyspnea on Results for this (NON-FASTING) AM EST exertion) procedure are in Morbid obesity with the resu lts BMI of 40.0-44.9, section. adult LEONARD treated with BiPAP documented in this encounter Results Differential, Automated (02/15/2017 9:40 AM EST) P athologist Signature Neutrophils % 55.5 % [facility] Neutr Abs (ANC) 2.42 1.70 - [facility] 6.10 [facility] x10(3)/[facility] LABORATORY Lymphocytes % 28.9 % [facility] Lymphocytes Abs 1.3 0.9 - 3.2 [facility] x10(3)/[facility] LABORATORY Monocytes % 12.4 % [facility] Monocyte Abs 0.5 0.3 - 0.9 [facility] x10(3)/[facility] LABORATORY Eosinophils % 2.3 % [facility] Eosinophils Abs 0.1 0.0 - 0.4 [facility] x10(3)/[facility] LABORATORY Basophils % 0.7 % [facility] Basophils Abs 0.0 0.0 - 0.1 [facility] x10(3)/[facility] LABORATORY Immature Gran % 0.20 % [facility] Comment: Immature granulocytes(IG's)percentage an d absolute count will include metamyelocytes, myelocytes, and promyelo cytes. Blood smears from CBCs yielding IG's will be scanned manually for concor dance. If this scan disagrees with the automated IG or if promyelocytes are not ed, a manual differential will be performed. Shyanne Gran Abs 0.01 0.00 - 0.04 x10(3)/[facility]ORATORY Specimen Anatomical Collection Method Collection Time Receive d Time (Source) Location / / Volume Laterality Blood specimen 02/15/2017 9:40 AM 017 9:47 (specimen) EST AM EST Resulting Agency Comment Spec In Lab Berry Branham MD HEMATOLOGY ORDERABLES Performing Organization Address City/State/[place] [address] (ABNORMAL) Hemogram (02/15/2017 9:40 AM EST) Analysis Performed At Patho logist Time Signature WBC 4.4 4.0 - 9.5 [facility] x10(3)/[facility] LABORATORY RBC 4.45 4.00 - [facility] 5.21 [facility] x10(6)/[facility] LABORATORY Hemoglobin 14.1 11.7 - [facility] 15.5 gm/dL [facility] Hematocrit 42.4 35.7 - [facility] 45.8 % [facility] MCV 95.3 (H) 82.6 - [facility] 94.4 [facility] LABORATORY MCH 31.7 27.1 - [place] 32.0 pg [facility] MCHC 33.3 31.7 - [place] 35.0 gm/dL [facility] Platelets 230 145 - 357 [facility] x10(3)/[facility] LABORATORY RDWSD 44.0 37.0 - [place] 46.0 [facility] LABORATORY RDWCV 12.5 11.5 - [facility] [place] 14.1 % [facility] MPV 9.8 7.6 - 12.9 [facility] LABORATORY nRBC % Auto 0.0 % [facility] nRBC Abs Auto 0.000 0.000 - [facility] 0.000 [facility] x10(3)/[facility] LABORATORY Specimen Anatomical Collection Method Collection Time Receive d Time (Source) Location / / Volume Laterality Blood specimen 02/15/2017 9:40 AM 017 9:47 (specimen) EST AM EST Resulting Agency Comment Spec In Lab Berry Branham MD HEMATOLOGY ORDERABLES Performing Organization Address City/[facility]/[place] [address] (ABNORMAL) Immunoglobulin E (IgE) (02/15/2017 9:40 AM EST) athologist [facility] IgE 255 (H) <=101 kU/L [facility] Comment: Pediatric age-specific reference ranges are reflected in result ranges. Adult reference ranges: <25 kU/L ??Normal 25-100 kU/L Equivocal >100 kU/L ??Elevated Specimen Anatomical Collection Method Collection Time Receive d Time (Source) Location / / Volume Laterality Blood specimen 02/15/2017 9:40 AM 017 1:18 (specimen) EST PM EST Resulting Agency Comment Spec In Lab Berry Branham MD IMMUNOLOGY ORDERABLES Performing Organization Address City/[facility] [place] [address] (ABNORMAL) Basic Metabolic Panel (non-fasting) (02/15/2017 9:40 AM EST) athologist Signature Glucose Lvl 106 65 - 199 [facility] mg/dL [facility] Comment: Diabetes: >=200 mg/dL plus symp toms BUN 22 (H) 8 - 18 mg/dL [facility] Creatinine 1.04 0.70 - 1.20 mg/dL [facility] Sodium 141 135 - 145 mmol/L [facility] Potassium 4.3 3.5 - 5.0 mmol/L [facility] Comment: Please note: ??Patients with WBC >100,00 0 may have falsely elevated Potassium levels. ??For accurate Potassium quantif ication in these patients send serum separator tube (gold top) for subsequent determinations. ??Contact the Clinical Chemistry Laboratory if there are any qu estions. Chloride 100 98 - 107 mmol/L [facility] CO2 28 22 - 31 mmol/L [facility] Anion Gap 13 5 - 15 mmol/L [facility] Calcium 9.3 8.5 - 10.5 mg/dL [facility] Estimated GFR 53 (L) >=60 [facility] Comment: The reported eGFR should be multiplied b y 1.2 for patients. The MDRD is not an appropriate measure o f renal function for patients with body mass extremes or in patients with acute kidney failure. http://[employer]/DHnkdep http://[employer]/DHMCnkf Specimen Anatomical Collection Method Collection Time Receive d Time (Source) Location / / Volume Laterality Blood specimen 02/15/2017 9:40 AM 017 9:47 (specimen) EST AM EST Resulting Agency Comment Spec In Lab Berry Branham MD CHEMISTRY ORDERABLES Performing Organization Address City/State/[place] [address] (ABNORMAL) D-Dimer, Quantitative (02/15/2017 9:40 AM EST) athologist Signature D-Dimer, Quant 978 (H) 0 - 500 [facility] FEU ng/ml [facility] Comment: The D-Dimer assay is used to aid in the diagnosis of deep vein thrombosis and pulmonary embolism. A normal D-Dimer res ult (less than 500 FEU ng/ml) has a negative predictive value of approximate ly 95% for the exclusion of acute PE and DVT when there is low to moderate pr etest probability. To use age adjusted cutoff: Age x 10ng/mL. Specimen Anatomical Collection Method Collection Time Receive d Time (Source) Location / / Volume Laterality Blood specimen 02/15/2017 9:40 AM 017 9:47 (specimen) EST AM EST Resulting Agency Comment Spec In Lab Berry Branham MD HEMATOLOGY ORDERABLES Performing Organization Address City/State/ZIP Code Phon e Number [place] [id number] documented in this encounter Visit Diagnoses Diagnosis ROMO (dyspnea on exertion) - Primary Other dyspnea and respiratory abnormalit y Exercise hypoxemia Hypoxemia Morbid obesity with BMI of 40.0-44.9, ad ult Morbid obesity Hx pulmonary embolism Personal history of pulmonary embolism Elevated d-dimer Abnormal coagulation profile LEONARD treated with BiPAP Mild intermittent asthma without complic ation Unspecified asthma Atopy Other allergy, other than to medicinal a gents At risk for diabetes mellitus Other specified conditions influencing h ealth status Pulmonary nodules Other nonspecific abnormal finding of gilmer ng field documented in this encounter Care Teams Linen Room Attendant Relationship Specialty Start Date End Date Dallas Rizvi MD PCP - General 02/01/10 02/19/18 [address] [place] [address] documented as of this encounter
--- OUTSIDE RECORDS SUMMARY | 2021-10-13 15:53 | XMS_ITS | Encounter Summary ---
:1950 Author Organization [facility] [place] [address] Care Team Providers Name Role Phone Unknown Primary Care Provider Unavailable Reason for Visit Reason Onset Date Comments Other 05/21/2018 Encounter Details Date Type Department Care Team Description 05/21/2018 Telephone Neurology at [facility] Debbie Black, Other [facility] [employer] [place] [address] [facility] [phone] [place], [place] [address] (Wo rk) Social History Tobacco Use Types Packs/Day Years Used Date Former Smoker Cigarettes 1 10 Quit: 05/10/18 73 Smokeless Tobacco: Never Used Alcohol Use Standard Drinks/Week Comments No 0 (1 standard drink = 0.6 oz pure alcoho l) Sex Assigned at Date Recorded Female 01/18/2021 7:28 AM EST documented as of this encounter Miscellaneous Notes Telephone Encounter - Gracia Estrada RN - 05/21/2018 10:24 AM EDT Message forwarded to Debbie Black APRN Telephone Encounter - Marti Dao - 05/21/2018 9:50 AM EDT Clinical Certified Massage Therapist Message Caller: Alice Emiliano If not Pt / Relation to pt: Patients Daughter in-law Call back Number: Best time to reach caller: Anytime Reason for call: FYI ONLY for upcoming appointment. Patients change in behavior and decline in memory. 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 She states that bills and paperwork have always been very easy to the patient but this pastwinter things have been falling apart, bills have not been done on time, they've been getting late fees because the patient thinks that she finishes paperwork when she has only started them. Alice states that the patient gets lost in familiar places like the town that she has lived in for 60 years. Alice states that the patient has always been a very doting grandmother but reports that this past week while the family was in [place] with the patient, the patient was very snappy with the family, short tempered and was unable to engage in conversation (patient would be sitting in the living room with the family and would not partake in the discussions occuring) which she claims is very unusual. Alice states that often they would inform the patient where they were going and the patient would acknowledge her understanding and then a short while later ask where are we going?. Disposition of Call ?? Routine Message sent to the Nurse documented in this encounter Plan of Treatment Upcoming Encounters Date Type Specialty Care Team Description 11/24/2021 Office Visit Neurology Gregg Lacy MD [place], [place] [address] (Wo rk) 04/06/2022 Appointment Radiology 04/06/2022 Office Visit Orthopaedics Wally Rouse MD [facility] ORTHOPAEDIC SURG [place], [place] [address] (Wo rk) documented as of this encounter Visit Diagnoses Not on filedocumented in this encounter Care Teams Tea Plantation Worker Relationship Specialty Start Date End Date Unknown PCP - General 02/20/18 06/24/18 None documented as of this encounter
--- OUTSIDE RECORDS SUMMARY | 2021-10-13 15:53 | XMS_ITS | Encounter Summary ---
:1950 Author Organization [facility] [place] [address] Care Team Providers Name Role Phone Dlalas Rizvi MD Primary Care Provider Encounter Details Date Type Department Care Team Description 07/05/2017 Telephone Psychiatry and Behavioral Mercy Dominguez, PhD Health at [facility] [place] [address] [place] [address] [phone] (Wo rk) Social History Tobacco Use Types Packs/Day Years Used Date Former Smoker Cigarettes 1 10 Quit: 05/10/18 78 Smokeless Tobacco: Never Used Alcohol Use Standard Drinks/Week Comments No 0 (1 standard drink = 0.6 oz pure alcoho l) Sex Assigned at Date Recorded Female 01/18/2021 7:28 AM EST documented as of this encounter Miscellaneous Notes Telephone Encounter - Mercy Sow, PhD - 07/05/2017 4:52 PM EDT Called pt to check in about elevated depression score collected at the first Take ACTion group appointment. Specifically, the pt scored a 18 on the PHQ9. Denied SI. Today the pt reported that she is doing fine, she has been living with depression for many years, and her PCP is monitoring her depression and prescribing an antidepressant (see chart). Pt was offered a referral for individual therapy for depression, which she declined at this time. Pt agreed to complete PHQ9 measures before subsequentTake ACTion appointments so that this journalists and other writers can monitor her depression symptoms while she is a participant in the group. I provided the pt with my contact information, and encouraged her to follow up with me should she have any questions. documented in this encounter Plan of Treatment Upcoming Encounters Date Type Specialty Care Team Description 11/24/2021 Office Visit Neurology Gregg Lacy MD [place], [place] [address] (Wo rk) 04/06/2022 Appointment Radiology 04/06/2022 Office Visit Orthopaedics Wally Rouse MD [facility] ORTHOPAEDIC SURG [place], [place] [address] (Wo rk) documented as of this encounter Visit Diagnoses Not on filedocumented in this encounter Care Teams Manager Clinical Applications Relationship Specialty Start Date End Date Dallas Rizvi MD PCP - General 02/01/10 02/19/18 [address] [place] [address] documented as of this encounter
--- OUTSIDE RECORDS SUMMARY | 2021-10-13 15:53 | XMS_ITS | Encounter Summary ---
:1950 Author Organization [facility] [address] Care Team Providers Name Role Phone Dallas Rizvi MD Primary Care Provider Encounter Details Date Type Department Care Team Description 09/16/2015 Office Visit Physical Therapy at Alessandra Cabrera Diso rder of muscle, ligament, and fascia; [address] PT Anal sphincter incontinence; [address] [facility] Mixed stress [place] [address] PHYSICAL MEDICINE [phone] & [place] [address] Social History Tobacco Use Types Packs/Day Years Used Date Former Smoker Cigarettes 1 10 Quit: 05/10/18 78 Smokeless Tobacco: Never Used Alcohol Use Standard Drinks/Week Comments No 0 (1 standard drink = 0.6 oz pure alcoho l) Sex Assigned at Date Recorded Female 01/18/2021 7:28 AM EST documented as of this encounter Progress Notes Alessandra Cabrera PT - 09/16/2015 8:10 AM EDT Physical Therapy Progress Note Total treatment time: 45 minutes Total timed code treatment: 45 minutes Date of Exam/First Treatment: 08/26/2015 Date of onset: 4-6 months Referring Provider: CHRISTOPHE Bishop Diagnosis: ?? 1.?? Disorder of muscle, ligament, and fascia ? 2.?? Anal sphincter incontinence ? 3.?? Mixed stress and urge urinary incontinence ? Medicare Certification period: 08/26/2015 - 11/25/15 Goals: Short term goals (4 weeks) 1. Patient to be indep in the performance of a home program of pelvic floor muscle exercises on a daily basis. ?? 2. Patient will demonstrate an increase in pelvic floor muscle endurance from 4 to 10 seconds for 10repetitions. 3. Patient to complete SEMG evaluation. 4. Patient will demonstrate knowledge of toilet positioning and techniques. ?? Goals: shelter goals (3 months) 1. Patient to be independent with ongoing self management. ?? 2. Patient will have decreased number of episodes of fecal incontinence by 25%. 3. ADL???s not limited by UI, urgency or frequency. 4. Patient will have decreased episodes of urinary incontinence by 25%. S: Patient reports her symptoms are better as she is able to hold her urine and stool longer and able to make it to the toilet. Notes decreased episodes of fecal and urinary incontinence. She tried themetamucil for a week and was passing small amounts of stool, multiple times/day. She stopped taking the metamucil ~1 week ago and stools have been a better consistency and she is emptying larger amounts in fewer trips to the bathroom. She has been doing the pelvic floor muscle exercises and feels she is able to hold longer, find the muscles easier and does not have back pain when she does the exercises. She has not had any urinary tract infections since initial PT session. O: Treatment: neuro re-ed x 3 Evaluation: 08/26/15 Patient gives verbal consent to external and [...] laxity ?? Rectal Exam: External anal sphincter: anterior thinning, ? deficit of rectal sphincter, strength: 2/5, tone: 2/5,hold time: 4 seconds, Valsalva: mild, moderate pelvic floor excursion, without muscle contraction Today: Patient gives verbal consent to external and internal exam. ?? External Exam: Introitus: open at rest, loose, slightly asymmetric, atrophic signs, perineal scar into rectum Introitus: perineal descent with cough Pelvic Floor Contraction: mild/moderate levator ani activity with perineal body elevation, coordinated with exhalation Valsalva: mild, moderate pelvic floor excursion with signs of anterior and posterior laxity ?? Palpation: Non-tender to pelvic clock ?? Internal Exam: Levator ani muscle strength: 3:00 2+/5, 6:00 2+/5, and 9:00 2+/5, slow derecruitment, coordinated with the exhalation Levator ani muscle tone: 2/5, diffuse tenderness Hold Time: 8 seconds, # of reps: 12 per SEMG Valsalva: mild, moderate pelvic floor excursion with signs of anterior and posterior laxity ?? Rectal Exam: External anal sphincter: anterior thinning, ? deficit of rectal sphincter, strength: 2+/5, tone: 2/5, hold time: 6 seconds, Valsalva: mild, moderate pelvic floor excursion, without muscle contraction ?? SEMG: with internal rectal electrode in supine: Resting Rate: 3 uV Quick flicks: uV x reps Long Hold: 20 uV x ~6-10 seconds x ~20 reps, coordinated with exhalation, with rest breaks Pelvic floor muscle exercises in sitting and with normal breathing pattern Review and progress HEP: pelvic floor muscle exercises: LH ~6-10 seconds, rest 10 seconds with focuson full relaxation, x ~20 reps to fatigue, 2 sessions/day in sitting, coordinated with diaphragmaticbreathing and trial with normal breathing pattern A: Underactive pelvic floor muscles with muscle weakness, anal incontinence and mixed urinary incontinence. Patient performs a fair voluntary pelvic floor muscle contraction with voluntary relaxation. Patient demonstrates gains in pelvic floor muscle and rectal sphincter strength, endurance and motor control. ?? Patient has yearly, recurrent UTIs and may benefit from a consult with Urology or Urogynocology. ?? P: Recheck in 4 weeks. Patient to continue with HEP on her own. Patient knows to contact me with anyquestions or concerns. G-Code: Other PT/OT Primary Status?? Modifier?? CURRENT?? CK - At least 40 percent but less than 60 percent impaired, limited or restricted?? PROJECTED?? CJ - At least 20 percent but less than 40 percent impaired, limited or restricted?? DISCHARGE?? Not Discharged Yet - Ongoing? G Code Rationale: This G-Code and these disability modifiers were selected as the primary therapy goal based upon the patient's evaluation. Current ability measures, co-morbidities and clinical judgement were also used to select the disability modifier. Ms. Cummings's current G-Code functional level is 55% impaired. ?? Medicare Therapy G-Code Date Tracking: (Update G-Code status every 10 visits or when code changes) 1?? 2?? 3?? 4?? 5?? 6?? 7?? 8?? 9?? 10?? 08/26/15?? 09/16/15? documented in this encounter Plan of Treatment Upcoming Encounters Date Type Specialty Care Team Description 11/24/2021 Office Visit Neurology Gregg aLcy MD [place], [place] [address] (Wo rk) 04/06/2022 Appointment Radiology 04/06/2022 Office Visit Orthopaedics Wally Rouse MD [facility] ORTHOPAEDIC SURG [place], [place] [address] (Wo rk) documented as of this encounter Visit Diagnoses Diagnosis Disorder of muscle, ligament, and fascia Unspecified disorder of muscle, ligament , and fascia Anal sphincter incontinence Full incontinence of feces Mixed stress and urge urinary incontinen ce Mixed incontinence urge and stress (male )(female) documented in this encounter Care Teams Supervisor Pyrotechnic Loading Relationship Specialty Start Date End Date Dallas Rizvi MD PCP - General 02/01/10 02/19/18 [address] [place] [address] documented as of this encounter
--- OUTSIDE RECORDS SUMMARY | 2021-10-13 15:53 | XMS_ITS | Encounter Summary ---
:1950 Author Organization [facility] [place] [address] Care Team Providers Name Role Phone Dallas Rizvi MD Primary Care Provider Encounter Details Date Type Department Care Team Description 12/25/2016 External Results Pulmonology at [facility] [place] [address] Pulmonary Medici [place], [place] [address] (Wo rk) Social History Tobacco [...] 11/24/2021 Office Visit Neurology Gregg Lacy MD [place], [place] [address] (Wo rk) 04/06/2022 Appointment Radiology 04/06/2022 Office Visit Orthopaedics Wally Ruose MD [facility] ORTHOPAEDIC SUR[facility] [place] [address] (Wo rk) documented as of this encounter Procedures Procedure Name Priority Date/Time Associated Diagnosis Comme nts PULMONARY FUNCTION TEST Routine 12/25/2016 documented in this encounter Results Pulmonary Function Testing (12/25/2016) Narrative This result has an attachment that is no t available. Ilir Ramsey MD PFT ORDERABLES documented in this encounter Visit Diagnoses Not on filedocumented in this encounter Care Teams Envelope Folding Machine Adjuster Relationship Specialty Start Date End Date Dallas Rizvi MD PCP - General 02/01/10 02/19/18 [address] [place] [address] documented as of this encounter
--- OUTSIDE RECORDS SUMMARY | 2021-10-13 15:53 | XMS_ITS | Encounter Summary ---
:1950 Author Organization [facility] [place] [address] Care Team Providers Name Role Phone Dallas Rizvi MD Primary Care Provider Reason for Visit Reason Onset Date Comments Appointment 04/24/2017 schedule appt Encounter Details Date Type Department Care Team Description 04/24/2017 Telephone Pulmonology at [facility] Nasir Espino II Appointment (schedule [facility] appt) [place] [address] Social History Tobacco Use Types Packs/Day Years Used Date Former Smoker Cigarettes 1 10 Quit: 05/10/18 78 Smokeless Tobacco: Never Used Alcohol Use Standard Drinks/Week Comments No 0 (1 standard drink = 0.6 oz pure alcoho l) Sex Assigned at Date Recorded Female 01/18/2021 7:28 AM EST documented as of this encounter Miscellaneous Notes Telephone Encounter - Nasir Espino II - 04/24/2017 10:47 AM EST Called Kiya to schedule her for her CPEX(pft) and her f/u w/Dr. Branham. CPET will have to be on a separate day due to length of test. documented in this encounter Plan of Treatment Upcoming Encounters Date Type Specialty Care Team Description 11/24/2021 Office Visit Neurology Gregg Lacy MD [place], [place] [address] (Wo rk) 04/06/2022 Appointment Radiology 04/06/2022 Office Visit Orthopaedics Wally Rouse MD [facility] ORTHOPAEDIC SURG [place], [place] [address] (Wo rk) documented as of this encounter Visit Diagnoses Not on filedocumented in this encounter Care Teams Chief Nuclear Medicine Technologist Relationship Specialty Start Date End Date Dallas Rizvi MD PCP - General 02/01/10 02/19/18 [address] [place] [address] documented as of this encounter
--- OUTSIDE RECORDS SUMMARY | 2021-10-13 15:53 | XMS_ITS | Encounter Summary ---
:1950 Author Organization [facility] [place] [address] Care Team Providers Name Role Phone Dallas Rizvi MD Primary Care Provider Reason for Visit Reason Comments Follow-up s/p jaydeni 03/06/2014 Encounter Details Date Type Department Care Team Description 04/16/2014 Follow-Up Plastic Surgery at Marcos Vance MD Other specified [facility] aftercare following [facility] surgery [facility] [place] [address] [place] [address] [phone] (Wo rk) Social History Tobacco Use Types [...] Taken Comments Blood Pressure - - Pulse - - Temperature - - Respiratory Rate - - Oxygen Saturation - - Inhaled Oxygen Concentration - - Weight 90.7 kg (200 lb) 04/16/2014 9:14 AM EST pt repor angela Height 165.1 cm (5' 5) 04/16/2014 9:14 AM EST pt repor angela Body Mass Index 33.28 04/16/2014 9:14 AM EST documented in this encounter Patient Instructions Patient InstructionsEkaterina Rivera APRN - 04/16/2014 9:37 AM EST 1. Follow up: 1 month 2. Wash daily in the shower, pat dry and apply medi honey and dressings until healed 3. Continiue to limit activity 4. Ok to discontinue abdominal binder documented in this encounter Progress Notes Ekaterina Rivera APRN - 04/16/2014 9:27 AM EST Plastic Surgery Post Op Note Reason for visit: F/U status post procedure Date of surgery: 03/06/14 Procedure(s): panniculectomy Complications: ED visit for superficial wounds Pain: 03/21 HPI: Pt reports she had to go to the ED on 04/05/14 due to an open areas along her incision. She reports her drain sites keep scabbing over, and draining. Examination: Patient is alert, conversant, comfortable, ambulating Around the Umbilicus there is a 4 mm wide dry eschar along the incision line Central abdomen 5.5 cm long x 0.5 open area superficial with 100 % healthy granulation tissue in thebase Right lateral abdomen with 1 cm x 2 mm area of superficial dehiscence 0.5 cm round open area at right and left drain site Left lateral incision 1 cm x 2 mm superficial area of dehiscence No collection, no erythema, no evidence of cellulitis. Impression: Kiya Cummings is a 64 y.o. female who was seen today for follow-up after the above procedure. Please see the operative note for details. I instructed her on wound care. I will have her follow up in [address] Vance. Plan: 1. Follow up: 1 month 2. Wash daily in the shower, pat dry and apply medi honey and dressings until healed 3. Slowly increase activities. No restrictions. 4. Ok to discontinue abdominal binder 5. Ok to discontinue VNA services, supplies ordered for wound care I, Olga Whitlock, am acting as scribe for Ekaterina Rivera. All work documented was performed by Ekaterina Rivera. ???I performed the above scribed service and agree with the accuracy of the note?? Ekaterina Rivera APRN documented in this encounter Plan of Treatment Upcoming Encounters Date Type Specialty Care Team Description 11/24/2021 Office Visit Neurology Gregg Lacy MD [place], [place] [address] (Wo rk) 04/06/2022 Appointment Radiology 04/06/2022 Office Visit Orthopaedics Wally Rouse MD [facility] ORTHOPAEDIC SURG [place], [place] [address] (Wo rk) documented as of this encounter Visit Diagnoses Diagnosis Other specified aftercare following surg chente documented in this encounter Care Teams Iron Guardrail Installer Relationship Specialty Start Date End Date Dallas Rizvi MD PCP - General 02/01/10 02/19/18 [address] [place] [address] documented as of this encounter
--- OUTSIDE RECORDS SUMMARY | 2021-10-13 15:53 | XMS_ITS | Encounter Summary ---
:1950 Author Organization [facility] [place] [address] Care Team Providers Name Role Phone Dallas Rizvi MD Primary Care Provider Encounter Details Date Type Department Care Team Description 04/26/2017 Orders Only Medicine Critical Ca Berry Schmidt MD [place] [address] Pulmonary Medicine [phone] [place], [place] [address] (Wo rk) Social History Tobacco [...] 11/24/2021 Office Visit Neurology Gregg Lacy MD [place], [place] [address] (Wo rk) 04/06/2022 Appointment Radiology 04/06/2022 Office Visit Orthopaedics Wally Rouse MD [facility] ORTHOPAEDIC SURG [place], [place] [address] (Wo rk) documented as of this encounter Visit Diagnoses Not on filedocumented in this encounter Care Teams Dietist Relationship Specialty Start Date End Date Dallas Rizvi MD PCP - General 02/01/10 02/19/18 [address] [place] [address] documented as of this encounter
--- OUTSIDE RECORDS SUMMARY | 2021-10-13 15:53 | XMS_ITS | Encounter Summary ---
:1950 Author Organization [place] [address] Care Team Providers Name Role Phone Dallas Rizvi MD Primary Care Provider Encounter Details Date Type Department Care Team Description 07/03/2017 Office Visit [facility] at [facility], Disordered eating [facility] PhD [address] [place] [address] PSYCHIATRY [place], [place] [address] (Wo rk) Social History Tobacco Use Types Packs/Day Years Used Date Former Smoker Cigarettes 1 10 Quit: 05/10/18 78 Smokeless Tobacco: Never Used Alcohol Use Standard Drinks/Week Comments No 0 (1 standard drink = 0.6 oz pure alcoho l) Sex Assigned at Date Recorded Female 01/18/2021 7:28 AM EST documented as of this encounter Progress Notes [facility], PhD - 07/03/2017 3:00 PM EDT TAKE ACTION! GROUP THERAPY PROGRESS NOTE Introductory Session CPT 83007/ROCIO 5600 Time Spent: 90 minutes ?? Number of participants: 14 ?? Co-Leaders: [facility], PhD,??and Marysol Mcneil, MPH, MA ?? Attending clinical hearing aid assembly supervisor: Stefan Salinas, PhD SUBJECTIVE: Chief Complaint (DSM V diagnosis or medical condition): Disordered eating OBJECTIVE: Interventions: ?? Introduced and discussed the treatment model (i.e., relationships between thoughts, emotions/feelings, physical sensations, and behavior) ?? Introduced and discussed models of binge and emotional eating driven by thoughts and emotions ?? Introduced and discussed lewis concepts (e.g., Control what you can, accept what you can???t) andskill categories the group will emphasize (values-driven action, mindful decision making, and willingness). ASSESSMENT: Depression Symptoms (PHQ) 0 = not at all; 1 = several days; 2 = more than half the days; 3 = nearly every day Over the last 2 weeks, how often have you been bothered by the following problems? ?? Little interest or pleasure in doing things: 3. ?? Feeling down, depressed, hopeless: 2 ?? Trouble falling/staying asleep, or sleeping too much:1. ?? Feeling tired or having little energy: 3. ?? Poor appetite or overeatin. ?? Feeling badly about self/failure, or having let self or family down: 2 ?? Trouble concentrating on things (reading/tv): 3. ?? Moving or speaking so slowly that other people could have noticed? Or the opposite - being so fidgety or restless that you have been moving around a lot more than usual: 1. ?? Thought that you would be better off or hurting yourself in some way: 0. Protective Factors:N/A PHQ-9 score = 18 is in range of 15+ severe depression How difficult have these made it for you to do your work, take care of things at home, or get along with other people? Somewhat difficult Disordered Eating Based on Kiya Cummings's responses to the Questionnaire of Eating and Weight Patterns - 5 (see scanned documents), Kiya Cummings: ?? does not engage in compensatory behaviors indicative of bulimia nervosa ?? does screen positively for symptoms of binge eating disorder Based on Kiya Cummings's responses to the Three Factor Eating Questionnaire- Revised (see scanned documents), Kiya Cummings: ?? does engage in disordered eating behaviors. Pertinent Mental Status Exam: WNL Patient's verbal/interpersonal exchange with other participants: appropriate PLAN: Kiya Cummings has accepted participation in the Take ACTion Group. Based on the Kiya Cummings's responses to the questionnaires, an individual appointment was not offered. Assigned Homework: None Stefan Salinas, PhD - 07/03/2017 3:00 PM EDT I was present for the full administration of this service. This service was provided under my directsupervision. I reviewed this note and agreed with the assessments and treatment plans. Stefan Salinas, PhD documented in this encounter Plan of Treatment Upcoming Encounters Date Type Specialty Care Team Description 11/24/2021 Office Visit Neurology Gregg Lacy MD [place], [place] [address] (Wo rk) 04/06/2022 Appointment Radiology 04/06/2022 Office Visit Orthopaedics Wally Rouse MD [facility] ORTHOPAEDIC SURG [place], [place] [address] (Wo rk) documented as of this encounter Visit Diagnoses Diagnosis Disordered eating Eating disorder, unspecified documented in this encounter Care Teams Shadowgraph Operator Relationship Specialty Start Date End Date Dallas Rizvi MD PCP - General 02/01/10 02/19/[address] [place] [id number] documented as of this encounter
--- OUTSIDE RECORDS SUMMARY | 2021-10-13 15:53 | XMS_ITS | Encounter Summary ---
:1950 Author Organization [facility] [place] [address] Care Team Providers Name Role Phone Dallas Rizvi MD Primary Care Provider Reason for Visit Reason Comments Follow Up Surgery f/u panni 03/06/14 Encounter Details Date Type Department Care Team Description 06/25/2014 Follow-Up Plastic Surgery at [facility] Marcos Vance MD S/P panniculectomy [facility] [place] [address] PLASTIC SURGERY [phone] [place], [place] [address] (Wo rk) Social History Tobacco [...] Reading Time Taken Comments Blood Pressure 139/74 06/25/2014 10:21 AM EDT Pulse 76 06/25/2014 10:21 AM EDT Temperature - - Respiratory Rate - - Oxygen Saturation - - Inhaled Oxygen Concentration - - Weight 94.7 kg (208 lb 12.8 oz) 06/25/2014 10:21 AM EDT Height 165.1 cm (5' 5) 06/25/2014 10:21 AM EDT Body Mass Index 34.75 06/25/2014 10:21 AM EDT documented in this encounter Progress Notes Marcos Vance MD - 06/25/2014 10:23 AM EDT Plastic Surgery Post Op Note Reason for visit: F/U status post procedure Date of surgery: 03/06/14 Procedure(s): panniculectomy Complications: ED visit for superficial wounds Pain: 0/10 HPI: She reports her wound have healed nicely. She denies any pain concerns. She is happy with the outcome, but does not like the appearance of her umbilicus, but no one will see it. Examination: Patient is alert, conversant, comfortable, ambulating Abdominal incisions well healed, Umbilicus remnant is viable Residual swelling as anticipated to date No hernia or bulge Impression: Kiya Cummings is a 64 y.o. female who was seen today for follow-up after the above procedure. Please see the operative note for details. She has healed well to date, and is happy with the results. I will follow up with her at 6 months post op. Plan: 1. Follow up 2-3 months 2. Resume normal activity no restrictions I, Olga Whitlock, am acting as scribe for Dr Vance. All work documented was performed by Dr Vance. ???I performed the above scribed service and agree with the accuracy of the note?? Marcos Vance MD documented in this encounter Plan of Treatment Upcoming Encounters Date Type Specialty Care Team Description 11/24/2021 Office Visit Neurology Gregg Lacy MD [employer], [place] [address] ([place] raymond) 04/06/2022 Appointment Radiology 04/06/2022 Office Visit Orthopaedics Wally Rouse MD [facility] ORTHOPAEDIC SURG [place], [place] [address] ([place]ulio raymond) documented as of this encounter Visit Diagnoses Diagnosis S/P panniculectomy documented in this encounter Care Teams Casing Fluid Tender Relationship Specialty Start Date End Date Dallas Rizvi MD PCP - General 02/01/10 02/19/18 [address] [place] [address] documented as of this encounter
--- OUTSIDE RECORDS SUMMARY | 2021-10-13 15:53 | XMS_ITS | Encounter Summary ---
:1950 Author Organization [place] [address] Care Team Providers Name Role Phone Dallas Rizvi MD Primary Care Provider Reason for Visit Reason Comments Follow Up Surgery panni 03/06/14 Encounter Details Date Type Department Care Team Description 08/26/2014 Follow-Up Plastic Surgery at [facility] Marcos Vance MD S/P panniculectomy [facility] [place] [address] PLASTIC SURGERY [phone] [place], [place] [address] (Wo rk) Social History Tobacco Use Types Packs/Day Years Used Date Former Smoker Cigarettes 1 10 Quit: 05/10/18 78 Smokeless Tobacco: Never Used Alcohol Use Standard Drinks/Week Comments No 0 (1 standard drink = 0.6 oz pure alcoho l) Sex Assigned at Date Recorded Female 01/18/2021 7:28 AM EST documented as of this encounter Progress Notes Marcos Vance MD - 08/26/2014 11:41 AM EDT Plastic Surgery Post Op Note Reason for visit: F/U status post procedure Date of surgery: 03/06/14 Procedure(s): panniculectomy Complications: ED visit for superficial wounds Pain: 0/10 HPI: She reports She is doing well. She denies any pain concerns. She is very happy with the resultsof her surgery to date. Examination: Patient is alert, conversant, comfortable, ambulating Abdominal incisions well healed, Umbilicus remnant is viable Residual swelling as anticipated to date No hernia or bulge Impression: Kiya Cummings is a 64 y.o. female who was seen today for follow-up after the above procedure. Please see the operative note for details. She has a great result. Plan: 1. Follow up 1 year post op I, Olga Whitlock, am acting as scribe for Dr Vance. All work documented was performed by Dr Vance. ???I performed the above scribed service and agree with the accuracy of the note?? Marcos Vance MD documented in this encounter Plan of Treatment Upcoming Encounters Date Type Specialty Care Team Description 11/24/2021 Office Visit Neurology Gregg Lacy MD [place], [place] [address] (Wo rk) 04/06/2022 Appointment Radiology 04/06/2022 Office Visit Orthopaedics Wally Rouse MD [facility] ORTHOPAEDIC SURG [place], [place] [address] (Wo rk) documented as of this encounter Visit Diagnoses Diagnosis S/P panniculectomy documented in this encounter Care Teams Lift Supervisor Relationship Specialty Start Date End Date Dallas Rizvi MD PCP - General 02/01/10 02/19/18 [address] [place] [address] documented as of this encounter
--- OUTSIDE RECORDS SUMMARY | 2021-10-13 15:54 | XMS_ITS | Encounter Summary ---
:1950 Author Organization [facility] [place] [address] Care Team Providers Name Role Phone Dallas Rizvi MD Primary Care Provider Encounter Details Date Type Department Care Team Description 2012 Hospital Encounter Pulmonology at [facility] Lung nodule (Primary [facility] [place] [address] Social History Tobacco Use Types Packs/Day Years Used Date Former Smoker Sex Assigned at Date Recorded Female 01/18/2021 7:28 AM EST documented as of this encounter Medications at Time of Discharge Medication Sig Dispensed Refills Start Date End Date buPROPion (WELLBUTRIN XL) Take 150 mg by 0 06/14/2017 150 mg 24 hr tablet mouth every morning. DULoxetine (CYMBALTA) 60 Take 60 mg by mouth 0 04/19/2012 mg capsule daily. DULoxetine (CYMBALTA) 30 Take 30 mg by mouth 0 04/19/2012 mg capsule daily. fluticasone (FLOVENT) 44 Inhale 1 puff into 0 04/19/2012 mcg/actuation inhaler the lungs 2 times daily. albuterol (PROVENTIL Inhale 2 puffs into 0 02/15/2017 HFA;VENTOLIN HFA) 90 the lungs every 4 mcg/actuation inhaler hours as needed. Use with spacer esomeprazole (NEXIUM) 40 40 MG = 1 0 09/05/2006 04/19/2012 mg capsule Capsule(s), PO, QAM CIS Free Text Med - 0 08/15/200604/19 Vitamin G60-Gawja CIS Free Text Med - 0 08/15/200604/19 Lactobacillus Acidophilus montelukast (SINGULAIR) 10 0 7 06/18/2017 mg tablet DESIPRAMINE HCL 0 08/15/2006 7 (DESIPRAMINE ORAL) solifenacin (VESICARE) 5 0 08/15/2006 10/01/2013 mg tablet meloxicam (MOBIC) 15 mg 0 08/15/2006 0 11/27/2013 tablet fexofenadine (MARY JO) 180 0 7 06/25/2018 mg tablet escitalopram (LEXAPRO) 20 0 08/15/2006 02/15/2017 mg tablet levothyroxine (LEVOXYL) 0 08/15/2006 0 06/25/2018 100 mcg tablet OLOPATADINE HCL (PATADAY 0 08/15/2006 10/01/2013 OPHT) Calcium Carbonate-Mag 0 08/15/2006 Hydroxid (MYLANTA ULTRA) 700-300 mg Chew Black Cohosh 20 mg Tab 0 08/15/2006 documented as of this encounter Procedure Notes Andree Gonzales MD - 2012 12:00 AM EDTAssociated Order(s): PFT SCREEN (DLCO,OXIMETRY,SPIROMETRY); SCAN DOC: PFT; NITRIC OXIDE GAS D ETERMINATION (NURSE); PFT SCREEN (DLCO,OXIMETRY,SPIROMETRY); SCAN DOC: PFT; NITRIC OXIDE GASDETERMINATION (NURSE) Spirometry is normal. The diffusion capacity is supranormal. This may be seen in asthma, obesity, supine position, polycythemia, left to right intracardiac shunt and intraparenchymal hemorrhage. Clinical correlation is recommended. The oxygen saturation on room air at rest is normal. There was no significant desaturation on ambulation on room air. ANDREE GONZALES MD documented in this encounter Plan of Treatment Upcoming Encounters Date Type Specialty Care Team Description 11/24/2021 Office Visit Neurology Gregg Lacy MD [facility] [place], [place] [address] (Wo rk) 04/06/2022 Appointment Radiology 04/06/2022 Office Visit Orthopaedics Wally Rouse MD [facility] [place]OPAEDIC [place], [place] [address] (Wo rk) documented as of this encounter Procedures Procedure Name Priority Date/Time Associated Diagnosis Comme nts PFT SCREEN Routine 01/08/2012 11:39 AM Results for this (DLCO,OXIMETRY,SPIR EDT procedur e are in OMETRY) the results section. PFT SCAN Routine 01/08/2012 11:39 AM Results for this EDT procedure are i n the results section. documented in this encounter Results PFT Screen (DLCO,oximetry,spirometry) (01/08/2012 11:39 AM EDT) Narrative 01/08/2012 11:39 AM EDT Spirometry is normal. The diffusion capacity is supranormal. T his may be seen in asthma, obesity, supine position, polycy themia, left to right intracardiac shunt and intraparenchymal hemorrhage. Clinical correlation is recommended. The oxygen saturation on room air at res t is normal. There was no significant desaturation on ambulation on room air. ANDREE GONZALES MD Procedure Note Andree Gonzales MD - 2012 1 2:00 AM EDT Spirometry is normal. The diffusion capacity is supranormal. T his may be seen in asthma, obesity, supine position, polycythemia, left to right intracardiac shunt and intraparenchymal hemorrhage. Clinical correlation is recommended. The oxygen saturation on room air at res t is normal. There was no significant desaturation on ambulation on room air. ANDREE GONZALES MD Andree Gonzales MD PROCEDURE/MINOR SURGICAL ORD ERABLES Scan Doc: PFT (01/08/2012 11:39 AM EDT) Narrative Andree Gonzales MD - 01/08/2012 1 1:39 AM EDT ANDREE GONZALES ? 01/08/2012 ? 11:39:21 AM Spirometry is normal. The diffusion capacity is supranormal. T his may be seen in asthma, obesity, supine position, polycy themia, left to right intracardiac shunt and intraparenchymal hemorrhage. Clinical correlation is recommended. The oxygen saturation on room air at res t is normal. There was no significant desaturation on ambulation on room air. ANDREE GONZALES MD Procedure Note Andree Gonzales MD - 2012 1 2:00 AM EDT Spirometry is normal. The diffusion capacity is supranormal. T his may be seen in asthma, obesity, supine position, polycythemia, left to right intracardiac shunt and intraparenchymal hemorrhage. Clinical correlation is recommended. The oxygen saturation on room air at res t is normal. There was no significant desaturation on ambulation on room air. ANDREE GONZALES MD Historical Provider MD MEDIA MGR SCAN EXT ORDR/RSLT documented in this encounter Visit Diagnoses Diagnosis Lung nodule - Primary Solitary pulmonary nodule documented in this encounter Care Teams Cold Storage Supervisor Relationship Specialty Start Date End Date Dallas Rizvi MD PCP - General 02/01/10 02/19/18 [address] [place] [address] documented as of this encounter
--- OUTSIDE RECORDS SUMMARY | 2021-10-13 15:54 | XMS_ITS | Encounter Summary ---
:1950 Author Organization [facility] [place] [address] Care Team Providers Name Role Phone Dallas Lord MD Primary Care Provider Reason for Visit Reason Comments Advice Only panni consult Encounter Details Date Type Department Care Team Description 10/01/2013 Office Visit Plastic Surgery at [facility], Marcos Gan, Misa s diastasis (Primary Dx); [facility] Abdominal pannus [address] [place] [facility] [id number] [place] [address] [phone] Social History Tobacco Use Types Packs/Day Years [...] Taken Comments Blood Pressure - - Pulse 81 10/01/2013 3:48 PM EDT Temperature - - Respiratory Rate - - Oxygen Saturation - - Inhaled Oxygen Concentration - - Weight 94.9 kg (209 lb 3.2 oz) 10/01/2013 3:48 PM EDT Height 162.6 cm (5' 4) 10/01/2013 3:48 PM EDT Body Mass Index 35.91 10/01/2013 3:48 PM EDT documented in this encounter Progress Notes Marcos Godinez MD - 10/01/2013 3:41 PM EDT Plastic Surgery Consultation Note PCP: DALLAS LORD MD CC: Abdominal pannus HPI: Kiya Cummings is a 63 y.o. female seen in my office today for consideration for abdominal panniculectomy. her PCP is DALLAS LORD MD and has requested the consultation. Her maximum weight was 291 lbs in 2012 She now weighs 209 lbs and is not continuing to lose weight. She has lost weight with diet and exercise.. She current weight has been stable for 8 months. She presents today because of increasing lower back pain, and urinary tract infections. She has frequent rash es under her pannus, and she treats these with medicated powders. Past Medical History Diagnosis Date ??? Allergy 1979 sulfur and 2012 sipro ??? Musculoskeletal disease 1999 arthritis in hands and toes ??? Asthma 1977 asthma ??? Circulatory disease 1984 varicose veins stripped ??? Diverticulitis 2004 diverticulitis GERD ??? ENT disease 2009 tinnitus ??? Eye problems 2011 cataracts ??? Urinary disorder 1984 bladder infections ??? Mental or behavioral problem 1999 depression ??? Hormone disorder underactive thyroid ROS: HEENT, GI, /Renal, Psych, Card, Pulm, Endo, Heme, Immun, Neuro: negative Past Surgical History Procedure Date ??? Musculoskeletal surgery unlisted both shouloders rotater cuff ??? Genital surg proc, female unlisted 1994 1981 prolapse hysterectomy ??? Vascular surgery 1990 varicose veins both legs Social History: History Social History ??? Marital Status: Spouse Name: N/A Number of Children: N/A ??? Years of Education: N/A Occupational History ??? Not on file. Social History Main Topics ??? Smoking status: Former Smoker -- 1.0 packs/day for 10 years Types: Cigarettes Quit date: 05/10/1977 ??? Smokeless tobacco: Never Used ??? Alcohol Use: No ??? Drug Use: No ??? Sexually Active: Not on file Other Topics Concern ??? Exercise: Patient Reported No ??? Abuse Or Threat: Physical, Sexual, Verbal No Social History Narrative ??? No narrative on file FAM HX: Family History Problem Relation Age of Onset ??? Alcohol Abuse Sister ??? Thrombophilia Mother ??? Cancer Mother ??? Coronary Artery Disease Mother ??? Heart Disease Mother ??? High Blood Pressure Mother Examination: Pulse 81 Ht 162.6 cm (5' 4) Wt 94.892 kg (209 lb 3.2 oz) BMI 35.89 kg/m2 Overweight, pale skinned female in no acute distress, comfortable. She was well oriented and asked appropriate questions throughout the visit. HEENT: MMM, normocephalic, sclera: white, no facial abrasions Neuro: Pupils equal, round, and reactive to light, extra ocular muscles in tact, tongue midline Resp: No stridor, no wheezes, regular rate Extrem: no cyanosis/clubbing/or edema, no rashes Muscuskeletal: gross full ROM x 4 extrem, ambulating, no lesions Abd: Large abdominal pannus which encompasses the mons pubis And genital area She has no prohibitive scars weakness in the umbilical area probable diastasis about 8 cm x 8 cm at the umbilicus and above No active rash or cellulitis. Impression: Kiya Cummings is a 63 y.o. female is a suitable candidate for panniculectomy which would likely correct her physical symptomatology. I recommend she obtain a CT scan to r/o hernia . She was instructed to lose another 10 lbs prior to surgery. I will follow up with her in 3 months to review the results of the CT scan and finalize a surgical plan. If a hernia is present I will refer her to general surgery. She agrees with this plan. Plan: 1. Ct scan to r/o hernia 2. Follow up 3 months IOlga, am acting as scribe for Dr Godinez. All work documented was performed by Dr Godinez. ???I performed the above scribed service and agree with the accuracy of the note?? MARCOS GODINEZ MD documented in this encounter Plan of Treatment Upcoming Encounters Date Type Specialty Care Team Description 11/24/2021 Office Visit Neurology Gregg Lacy MD [place] [id number] (Wo rk) 04/06/2022 Appointment Radiology 04/06/2022 Office Visit Orthopaedics Wally Rouse MD [facility] [place] [address] (Wo rk) documented as of this encounter Results CT abdomen & pelvis WO contrast (10/07/2013 4:19 PM EDT) Anatomical Region Laterality Modality Abdomen, Pelvis Computed Tomography Specimen (Source) Anatomical Collection Method Collection Time Re ceived Time Location / / Volume Laterality 10/07/2013 4:19 PM EDT Narrative 10/07/2013 4:[address] Abdomen / Pelvis Without Contrast Clinical History r/o hernia Comparison Images from a chest CT 04/19/2012. Technique Helical CT of the abdomen and pelvis was performed with oral contrast. Multiplanar formatted images were review ed. Findings Tiny subpleural nodular opacity in the r ight middle lobe is unchanged and may represent an intrapulmonary lymph node. ??No pleural or pericardial effusion. ?? Allowing for the limitations due to the lack of intravenous contrast, no focal lesions are identified in the liver, spl een, pancreas, or adrenal glands. ??2 nonobstructive ??calculi are noted in th e left kidney, the larger measuring 5 mm. ??A 3.1 cm right lower pole renal cy st is noted. ??Gallbladder contracted. No biliary dilatation noted. No abdominal or pelvic lymphadenopathy. ??Bladder not distended. ??Uterus and ovaries not identified and presumably everett ve been removed. There are scattered colonic diverticula without associated inflammation. ??Colon diffusely distended with feces. ??There are no dilated loops of small bowel nor regions of bowel wall thickening. ??No f ree fluid, fluid collection, or mesenteric inflammation. ??Appendix unre markable. There is diastasis of the anterior abdom inal wall at the level of the umbilicus, with the medial edge of the r ight and left rectus muscle by 7 cm. ??A focal fat containing hernia extends outward from this region of diastasis. ??No inguinal hernia. Osseous structures: ??There is a right i lial bone island. ??Moderate degenerative arthropathy noted of the lower lumbar fa cets and degenerative disc disease at L5/S1 without spondylolisthesis. ??No wo rrisome lytic or sclerotic osseous lesions. Impression ? 1. There is diastasis of the ante rior abdominal wall musculature as well as a more focal fat containing umbilical hernia. ? 2. The colon is diffusely distend ed with stool. ? 3. Non-obstructing left renal cynthia culi. Procedure Note Chanell Hunter MD - 10/07/2013Formatt ing of this note might be different from the original. Examination CT Abdomen / Pelvis Without Contrast Clinical History r/o hernia Comparison Images from a chest CT 04/19/2012. Technique Helical CT of the abdomen and pelvis was performed with oral contrast. Multiplanar formatted images were review ed. Findings Tiny subpleural nodular opacity in the r ight middle lobe is unchanged and may represent an intrapulmonary lymph node. No pleural or pericardial effusion. Allowing for the limitations due to the lack of intravenous contrast, no focal lesions are identified in the liver, spl een, pancreas, or adrenal glands. 2 nonobstructive calculi are noted in the left kidney, the larger measuring 5 mm. A 3.1 cm right lower pole renal cyst is noted. Gallbladder contracted. No biliary dilatation noted. No abdominal or pelvic lymphadenopathy. Bladder not distended. Uterus and ovaries not identified and presumably everett ve been removed. There are scattered colonic diverticula without associated inflammation. Colon diffusely distended with feces. There ar e no dilated loops of small bowel nor regions of bowel wall thickening. No elyse e fluid, fluid collection, or mesenteric inflammation. Appendix unrema rkable. There is diastasis of the anterior abdom inal wall at the level of the umbilicus, with the medial edge of the r ight and left rectus muscle by 7 cm. A focal fat containing hernia e xtends outward from this region of diastasis. No inguinal hernia. Osseous structures: There is a right killian al bone island. Moderate degenerative arthropathy noted of the lower lumbar fa cets and degenerative disc disease at L5/S1 without spondylolisthesis. No worr isome lytic or sclerotic osseous lesions. Impression 1. There is diastasis of the anterior a bdominal wall musculature as well as a more focal fat containing umbilical hernia. 2. The colon is diffusely distended wit h stool. 3. Non-obstructing left renal calculi. Marcos Godinez MD IMG CT ORDERABLES documented in this encounter Visit Diagnoses Diagnosis Rectus diastasis - Primary Diastasis of muscle Abdominal pannus Localized adiposity Rectus diastasis Diastasis of muscle documented in this encounter Care Teams Marketing Operations Manager Relationship Specialty Start Date End Date Dallas Lord MD PCP - General 02/01/10 02/19/18 [address] [place] [address] documented as of this encounter
--- OUTSIDE RECORDS SUMMARY | 2021-10-13 15:54 | XMS_ITS | Encounter Summary ---
:1950 Author Organization [facility] [place] [address] Care Team Providers Name Role Phone Nelly Rizvi MD Primary Care Provider Encounter Details Date Type Department Care Team Description 03/06/2014 Surgery Main Operating Room Marcos Kearney MD PANNICULECTOMY [facility] [place] [address] [place] [address] [phone] (Wo rk) Social History Tobacco Use Types [...] Sign Reading Time Taken Comments Blood Pressure 164/78 03/06/2014 12:45 PM EST Pulse 69 03/06/2014 12:45 PM EST Temperature 36.1 ??C (97 ??F) 03/06/2014 12:00 PM EST Respiratory Rate 14 03/06/2014 12:45 PM EST Oxygen Saturation 98% 03/06/2014 12:45 PM EST Inhaled Oxygen Concentration - - Weight 93 kg (205 lb) 03/06/2014 8:30 AM EST Height 165.1 cm (5' 5) 03/06/2014 8:30 AM EST Body Mass Index 34.11 03/06/2014 8:30 AM EST documented in this encounter Discharge Summaries Anival Wright MD - 03/07/2014 7:56 AM EST PLASTIC SURGERY DISCHARGE SUMMARY Date of Admission: 03/06/2014 Date of Discharge: 03/07/2014 Diagnosis on admission: recurrent intertriginous rashes Diagnosis on discharge: recurrent intertriginous rashes Condition on Discharge: stable Consultations: none Procedures: 03/06/2014 Surgeon(s) and Role: * Marcos Godinez MD - Primary * Anival Wright MD: Procedure(s): ABDOMINOPLASTY MODIFIER PANNICULECTOMY History: History obtained through patient interview, review of relevant records, and/or discussion with referring provider. 64 y/o female with significant weight loss presents with recurrent rashes and back pain due to her abdominal pannus. PMHx: asthma, gerd, depression PSHx: bilateral rotator cuff, hysterectomy, varicose vein stripping Meds: albuterol, wellbutrin, desipramine, lexapro, vimal, levoxyl, mobic, singulair All: sulfa Hospital Course: 64 y/o female was admitted after panniculectomy for recurrent rashes and back pain. Please see operative report for full operative details. She progressed well postoperatively. She was able to tolerateregular diet. Her pain was controlled with manager of software development and transitioned to oxycodone. She was able to ambulate to the bathroom. Physical Exam on d/c: Blood pressure 137/72, pulse 74, temperature 36.6 ??C (97.9 ??F), temperature source Oral, resp. rate 16, height 165.1 cm (5' 5), weight 92.987 kg (205 lb), SpO2 98 %. Gen: NAD Resp: CTAB CV: RRR Abd: soft, appropriately tender, umbilicus viable, dressings intact Lab data: Recent Results (from the past 72 hour(s)) POCT HGB Result Value Range POC Hemoglobin 15.0 Pending lab data: none Medications: Your Medications Notice Some of the medications listed here do not show instructions, such as how often to take the medication. Ask your doctor or nurse how to use these medications. Specifically ask about these and similar medications: - montelukast (SINGULAIR) 10 mg tablet - DESIPRAMINE HCL (DESIPRAMINE ORAL) - fexofenadine (VIMAL) 180 mg tablet - escitalopram (LEXAPRO) 20 mg tablet - levothyroxine (LEVOXYL) 100 mcg tablet - Calcium Carbonate-Mag Hydroxid (MYLANTA ULTRA) 700-300 mg Chew New Medications Dose Details oxyCODONE 5 mg Tab Commonly known as: ROXICODONE Take 1-2 tablets by mouth every 4 hours as needed for Pain. 5-10 mg Quantity: 40 tablet Refills: 0 Continued medications, unchanged Dose Details albuterol 90 mcg/actuation Hfaa Commonly known as: PROVENTIL HFA;VENTOLIN HFA Inhale 2 puffs into the lungs every 4 hours as needed. Use with spacer 2 puff Refills: 0 VIMAL 180 mg Tab Generic drug: fexofenadine Refills: 0 buPROPion 150 mg Tablet sr Commonly known as: WELLBUTRIN XL Take 150 mg by mouth every morning. 150 mg Refills: 0 DESIPRAMINE ORAL Refills: 0 LEVOXYL 100 mcg Tab Generic drug: levothyroxine Refills: 0 LEXAPRO 20 mg Tab Generic drug: escitalopram oxalate Refills: 0 MYLANTA ULTRA 700-300 mg Chew Generic drug: Calcium Carbonate-Mag Hydroxid Refills: 0 SINGULAIR 10 mg Tab Generic drug: montelukast Refills: 0 Allergies: Allergies Allergen Reactions ??? Sulfa (Sulfonamide Antibiotics) CIS - Hives Discharge Instructions: Patient Instructions During the first 1 to 3 weeks, expect to feel tired from the anesthesia and in general, due to the healing process. Rest frequently during the day, and limit visitors until you feel more up to it. Altered sensation (such as shooting or burning pain) or numbness is common after surgery. Normal or near normal sensation should return within a few months but some areas may stay numb permanently. You will be able to return to work in 4-6 weeks. You will not be able to lift more than 5 pounds for 6 weeks and no more than 10- 20 pounds for 3 months. No strenuous exercise (tennis, aerobics, jogging) for 3 months. Feel free to walk as much as you want. Walking improves circulation, respiratory function and healing. You will not be able to drive for 2-3 weeks or while taking you pain medication. You may wear your safety belt if you place a small pillow over your abdominal incision. No sexual activity for 6 weeks. No smoking for at least 2 weeks following your surgery. POSTOPERATIVE DRAIN AND INCISION CARE Your hospital nurse will review your drain care. You will learn how to strip, measure, and record the total amount of fluid from each drain. Call the clinic at [phone] and schedule an appointment with the nurses to have your drains removed when the drainage is 30cc or less in a 24 hour period for 2 days in a row. Note: Generalized abdominal swelling above the incision may last for several weeks to months due to tissue fluid build-up. You may sponge bathe 48 hours after surgery. Do not take a bath or use a hot tub until your skin is completely healed. To reduce the strain on your incision, you should remain in a flexed/recliner chair position for about 5 days- this may take longer in some instances so let your body be your guide. You may remove your dressings after 48 hours. If you feel more comfortable with dressings under the binder, then you may replace them to suit your comfort needs. A cotton t shirt between the skin and binder also works well. If present, nonabsorbable stitches are removed in 2 weeks. Spitting sutures: Occasionally an area of redness and tenderness develops where a dissolving stitch becomes irritated and pushes to the surface. If this occurs, it is not an emergency. You may clip thestitch with a clean scissor or call for an appointment with a nurse. No tanning on incision lines for at least 6 months to minimize scarring. No over the counter lotions, solutions, or herbal preparations on your incisions unless directed by your doctor. You will be provided with an abdominal binder or girdle. Wear it 24 hours a day for 4 to 6 weeks, removing it briefly to bathe. If any of these occur, contact your doctor right away - 1) Signs of infection: A temperature over 100.4'F or 38'C. Redness or warmth spreading away from the incision lines after the first 48 hours. Yellow pus-like or foul smelling drainage larger than dime size from the incisions or drainage sites. 2) Seromas/Hematoma: Before or after your drains are removed, if you notice localized swelling this could be a collection of fluid under the skin at or near the incision site. 3) Increased pain or discomfort that is not relieved by your pain medicine. During office hours: Sunday through Sunday 8 am to 5 pm Call [phone] On weekends or after hours: Call [phone] and ask the safety grooving machine operator to page the Plastic Surgery Resident jawbone puller. Prescription Line: Call the line at [phone] from 8am-4pm Sunday through Sunday. Narcotic renewals will not be honored after hours or on weekends. Make your request a few days before you run out as it make take up to24 hours for physician approval. Follow-up plan: Future Appointments and Orders Future Appointments Provider Department Dept Phone 03/18/2014 10:30 AM Ekaterina Rivera APRN Plastic Surgery [phone] Future Orders Complete By Expires Referral to Home Health - at DISCHARGE [[id number] CPT(R)] As directed Process Instructions: Scheduling Instructions: Comments: DOCUMENTATION FOR VNA SERVICES PATIENT'S LOCATION: Kiya Cruz [address] [facility] [id number] (home) Fight Manager's Name: Self In discussion with the attending physician, it is certified that this patient is under their care and that they, or a Nurse Practitioner,Clinical Nurse specialist or Physician Switch Repairer who is working directly with them, had a face to face encounter that meets the physician face to face encounter requirements with this patient on 03/07/2014. The encounter with the patient was in whole, or in part, for the following medical condition, which is the primary reason for home health care services: s/p ABDOMINOPLASTY, MODIFIER PANNICULECTOMY. In discussion with the provider, it is certified that, based on their findings, the following services are medically necessary for home health services. To provide the following care/treatments with the clinical findings supporting the need for services as follows: HOME CARE ORDERS: RN ORDERS: Assess wound or incision, vital signs, cardiopulmonary status, nutrition, hydration, elimination, meds effectiveness and management; reinforce education re health issues. Help with drain care and recording outputs HOME HEALTH CARE AGENCY: [facility], PHONE: [phone] FAX: [phone] Start of care: Friday 03/09 Please note that any additional orders needs or changes will need to be obtained from this patient'sPCP: NELLY RIZVI MD [address] / [facility] [id number] All VNA agencies which cover the area of patient's residence have been reviewed, either verbally or in writing, and patient/family have chosen the home health care agency noted. Questions: Agency name and contact information: [facility] Patient location post discharge: Home What services are requested: Registered Nurse Start date: 03/09/2014 Responsible MD post discharge contact info: PCP/[facility] Service documented in this encounter Discharge Instructions Patient InstructionsWAnival disla MD - 03/07/2014 7:55 AM EST During the first 1 to 3 weeks, expect to feel tired from the anesthesia and in general, due to the healing process. Rest frequently during the day, and limit visitors until you feel more up to it. Altered sensation (such as shooting or burning pain) or numbness is common after surgery. Normal or near normal sensation should return within a few months but some areas may stay numb permanently. You will be able to return to work in 4-6 weeks. You will not be able to lift more than 5 pounds for 6 weeks and no more than 10- 20 pounds for 3 months. No strenuous exercise (tennis, aerobics, jogging) for 3 months. Feel free to walk as much as you want. Walking improves circulation, respiratory function and healing. You will not be able to drive for 2-3 weeks or while taking you pain medication. You may wear your safety belt if you place a small pillow over your abdominal incision. No sexual activity for 6 weeks. No smoking for at least 2 weeks following your surgery. POSTOPERATIVE DRAIN AND INCISION CARE Your hospital nurse will review your drain care. You will learn how to strip, measure, and record the total amount of fluid from each drain. Call the clinic at [phone] and schedule an appointment with the nurses to have your drains removed when the drainage is 30cc or less in a 24 hour period for 2 days in a row. Note: Generalized abdominal swelling above the incision may last for several weeks to months due to tissue fluid build-up. You may sponge bathe 48 hours after surgery. Do not take a bath or use a hot tub until your skin is completely healed. To reduce the strain on your incision, you should remain in a flexed/recliner chair position for about 5 days- this may take longer in some instances so let your body be your guide. You may remove your dressings after 48 hours. If you feel more comfortable with dressings under the binder, then you may replace them to suit your comfort needs. A cotton t shirt between the skin and binder also works well. If present, nonabsorbable stitches are removed in 2 weeks. Spitting sutures: Occasionally an area of redness and tenderness develops where a dissolving stitch becomes irritated and pushes to the surface. If this occurs, it is not an emergency. You may clip thestitch with a clean scissor or call for an appointment with a nurse. No tanning on incision lines for at least 6 months to minimize scarring. No over the counter lotions, solutions, or herbal preparations on your incisions unless directed by your doctor. You will be provided with an abdominal binder or girdle. Wear it 24 hours a day for 4 to 6 weeks, removing it briefly to bathe. If any of these occur, contact your doctor right away - 1) Signs of infection: A temperature over 100.4'F or 38'C. Redness or warmth spreading away from the incision lines after the first 48 hours. Yellow pus-like or foul smelling drainage larger than dime size from the incisions or drainage sites. 2) Seromas/Hematoma: Before or after your drains are removed, if you notice localized swelling this could be a collection of fluid under the skin at or near the incision site. 3) Increased pain or discomfort that is not relieved by your pain medicine. During office hours: Sunday through Sunday 8 am to 5 pm Call [phone] On weekends or after hours: Call [phone] and ask the safety grooving machine operator to page the Plastic Surgery Resident jawbone puller. Prescription Line: Call the line at [phone] from 8am-4pm Sunday through Sunday. Narcotic renewals will not be honored after hours or on weekends. Make your request a few days before you run out as it make take up to24 hours for physician approval. AttachmentsThe following attachments cannot be sent through Care Everywhere. SURGICAL DRAIN CARE (SWEDISH)documented in this encounter Medications at Time of [...] HCL 0 08/15/2006 7 (DESIPRAMINE ORAL) fexofenadine (VIMAL) 180 0 7 06/25/2018 mg tablet escitalopram (LEXAPRO) 20 0 08/15/2006 02/15/2017 mg tablet levothyroxine (LEVOXYL) 0 08/15/2006 0 06/25/2018 100 mcg tablet Calcium Carbonate-Mag 0 08/15/2006 Hydroxid (MYLANTA ULTRA) 700-300 mg Chew documented as of this encounter Progress Notes Anival Wright MD - 03/06/2014 5:11 PM EST Plastic Surgery Progress Note S: pain controlled with manager of software development Tolerated water, no nausea/vomiting No chest pain or dyspnea Ambulated already O: Blood pressure 144/68, pulse 78, temperature 36.3 ??C (97.3 ??F), temperature source Oral, resp. rate 15, height 165.1 cm (5' 5), weight 92.987 kg (205 lb), SpO2 98 %. Gen: NAD Resp: unlabored CV: RRR Abd: soft, appropriately tender, dressings intact A/P: recurrent intertriginous rashes s/p panniculectomy - regular diet - manager of software development for pain control - keep bed flexed at waist - abdominal binder at all times - lovenox - ambulate as tolerated Elvia Johnson RN - 03/06/2014 12:48 PM EST 1200-Arrival to PACU via bed from OR. Monitors on & alarms set appropriately. VSS. Ad drsg c/d/i. KENNEDI drains x 2 patent & draining sm amt bloody fluid. Pt drowsy but sl arouseable. Reoriented tosurroundings. Sl facila grimace noted. Will monitor. 1245-Pt awake, crying, grimacing, tense, anxious-c/o 'burning' to lower abd. Reassurance offered & encouraged slow, deep breathing. Medicated as ordered w/dilaudid but min effect. Dr Dax valenzuela & updated-order for ativan. 1300-Medicated w/ativan as ordered. Encouraged slow, deep breathing. Almost immediate effect. Pt able to rest in short intervals. Arouses easily. Less tense appearing. States feeling more comfortable. Sats drop to mid 80's on RA when drifting off. O2 via 4lt nc applied. Continue to monitor & transfer to SS soon. 1335-Pt continues to rest comfortably. Sats dropping into low-mid 80's at times. Arouses easily & encouraged to take deep breaths w/adeq effect. Nasal cup O2 applied d/t pt mouth breathing. Adeq pain control. No further pain meds given since prior to ativan administration. Continue to monitor. documented in this encounter H&P Notes Anival Wright MD - 03/06/2014 9:20 AM EST 24 hour interval history and physical exam: Kiya Rowan's condition unchanged since H&P originally performed 64 y/o female with significant weight loss presents with recurrent rashes and back pain due to her abdominal pannus. No new medications or diagnoses. PE: Blood pressure 146/75, pulse 70, temperature 36.7 ??C (98.1 ??F), resp. rate 16, height 165.1 cm(5' 5), weight 92.987 kg (205 lb), SpO2 99 %. Gen :NAD Resp: CTAB CV: RRR Abd: large abdominal pannus A/P: recurrent intertriginous rashes - for panniculectomy today - risks, benefits, and alternatives discussed - risks include pain, bleeding, infection, scar, asymmetry, seroma, hematoma, injury to adjacent structures, skin/umbilical loss, delayed wound healing, and need for further surgery - she understands and wishes to proceed documented in this encounter Miscellaneous Notes Plan of Care - Estefani Osborne RN - 03/07/2014 1:12 PM EST Problem: General Plan of Care Goal: Plan of Care Review Outcome: Outcome (s) achieved Date Met: 03/07/14 03/07/14 1301 Coping/Psychosocial Response Interventions Plan of Care Reviewed with patient;spouse Plan of Care Review Plan of Care Outcome Status outcome achieved Progress improving OUTCOME EVALUATION NOTE: OUTCOME SUMMARY: Tolerating PO pain med with effective relief of discomfort. Ambulating in corridor maintaining flexion and without dizziness. O2 removed this am and sats 90 or greater. Running 91% when resting and 99%with activity. Given IS to take home with her to continue using. PLAN MOVING FORWARD: Discharge summary faxed and routed to [facility]. Also gave pt copy with instructions to call agency if no call from them Sunday. INDIVIDUALIZED FALL PREVENTION: Assistance: Ambulating in nichols with SBA. Feels great Supervision: Independent with personal care and dressing. Surveillance: with . CPG GOAL OUTCOME EVALUATION: The patient has met discharge criteria per policy. Discharge instruction reviewed and patient discharged to responsible adult. Patient???s pain level has been assessed and patient states that his/her level is tolerable at this time with PO oxycodone. Have instructed patient in empying KENNEDI drains and she has demonstrated. Provided with necessary equipment and flow sheet to monitor drainage. The After Visit Summary (AVS) and accompanying hand-outs have been reviewed with the patient; the patient verbalizes understanding at this time. Opportunity for clarification provided. All new medications have been reviewed with the patient and the appropriate hand-outs have been given to the patient. Reportable sign and symptoms have been reviewed with patient. Goal: Individualization and Mutuality Outcome: Outcome (s) achieved Date Met: 03/07/14 Goal: Fall Prevention-Safe Patient Handling Outcome: Outcome (s) achieved Date Met: 03/07/14 03/06/14 1506 03/07/14 1000 Safety Interventions Safety Precautions/Fall Reduction -- fall reduction program maintained Musculoskeletal Interventions Activity/Level of Assistance -- ambulated Positioning -- HOB up 30 degrees Muscle Strengthening activity/mobility promoted -- Self-Care Promotion personal routines for BADL/IADL promoted;independence encouraged while providingassistance -- Morel Fall Risk History of Falling -- 0 Secondary Diagnosis -- 15 Ambulatory Aids -- 0 Intravenous Therapy/Heparin/Saline Lock -- 0 Gait/Transferring -- 0 Mental Status -- 0 Score -- 15 OTHER Morel Fall Risk -- Medium (25-44) Goal: Infection Control Outcome: Outcome (s) achieved Date Met: 03/07/14 03/07/14 0207 03/07/14 1000 Safety Interventions Isolation Precautions -- standard precautions maintained Infection Prevention -- environmental surveillance Coping/Psychosocial Response Interventions Counseling emotional support provided;personal strengths integrated;reassurance provided;verbalization of feelings encouraged -- Goal: Discharge Needs Assessment Outcome: Outcome (s) achieved Date Met: 03/07/14 03/07/14 0810 03/07/14 1301 Discharge Needs Assessment Readmission Within the Last 30 Days no previous admission in last 30 days -- Community Agency Name(s) [facility] -- Equipment Needed After Discharge -- none Discharge Planning Comments -- Discharged to home with VNA services Living Environment Transportation Available -- family or friend will provide Self-Care Equipment Currently Used at Home -- none Current Health Anticipated Changes Related to Illness -- none Plan of Care - Estefani Osborne RN - 03/07/2014 8:20 AM EST Problem: General Plan of Care Goal: Discharge Needs Assessment Outcome: Ongoing (Interventions Implemented as Appropriate) 03/07/14 0810 Discharge Needs Assessment Concerns to be Addressed discharge planning concerns Readmission Within the Last 30 Days no previous admission in last 30 days Community Agency Name(s) [facility] Discharge Planning Comments Per MD patient requested VNA services at time of discharge SENIOR TAX ANALYST D/c'd, po oxycodone given. Will initiate KENNEDI drain teaching, O2 presently off and given IS to work with. Initial Assessments - Brie Pérez RN - 03/07/2014 8:12 AM EST Office of Care Management/Clinical Iron Setter (CRC)/Initial Assessment CRC Brie Pérez RN (pager [phone]) Patient: Kiya Rowan : 1950 (64 y.o.) Home: [facility] [id number]* LOS: 1 day Care reviewed with Dr. Anival Wright. Reviewed record. Patient Active Problem List Diagnosis Code ??? Rectus diastasis 728.84 ??? Abdominal pannus 278.1 ?? Social/Family situation: History Social History Narrative Extended Emergency Contact Information Primary Emergency Contact: Nabil Rowan Jr Relation: Spouse Secondary Emergency Contact: Vickie Lomeli Relation: Sibling ?? Code status: Full Code ?? Insurance coverage: [employer] ?? Admission status: 03/06/14 OBSVO Order to Admit is appropriate and signed by RYAN Hodge. ?? Anticipated barriers to discharge: None ?? Travograph Operator referral indicated: No ?? Anticipated discharge date: Today, Wednesday 03/07 ?? Anticipated discharge place: Home ?? Home health agency: [facility] RN orders pended. ?? PCP: NELLY RIZVI MD, Future Appointments Date Time Provider Department Center 03/18/2014 10:30 AM Ekaterina Rivera APRN [facility] Plan: Care Management will continue to monitor progress, follow for continuity of care, and assist with discharge planning. Plan of Care - Anum Lou RN - 03/07/2014 2:10 AM EST Problem: General Plan of Care Goal: Plan of Care Review Outcome: Ongoing (Interventions Implemented as Appropriate) 03/07/14 0207 Coping/Psychosocial Response Interventions Plan of Care Reviewed with patient Plan of Care Review Plan of Care Outcome Status ongoing (interventions implemented as appropriate) Progress improving Goal: Individualization and Mutuality Outcome: Ongoing (Interventions Implemented as Appropriate) 03/06/14 1425 Mutuality/Individual Preferences What anxieties, fears or concerns do you have about your health or care? none What questions do you have about your health or care? none What information would help us give you more personalized care? none at this time-very sleepy Goal: Fall Prevention-Safe Patient Handling Outcome: Ongoing (Interventions Implemented as Appropriate) 03/06/14 1506 03/06/14 2140 03/07/14 0038 Safety Interventions Safety Precautions/Fall Reduction -- -- -- Musculoskeletal Interventions Activity/Level of Assistance -- up in nichols;dangled at bedside -- Positioning -- -- HOB up 30 degrees Muscle Strengthening activity/mobility promoted -- -- Self-Care Promotion personal routines for BADL/IADL promoted;independence encouraged while providingassistance -- -- Morel Fall Risk History of Falling -- 0 -- Secondary Diagnosis -- 15 -- Ambulatory Aids -- 0 -- Intravenous Therapy/Heparin/Saline Lock -- 20 -- Gait/Transferring -- 0 -- Mental Status -- 0 -- Score -- 35 -- OTHER Morel Fall Risk -- Medium (25-44) -- 03/07/14206 Safety Interventions Safety Precautions/Fall Reduction commode/urinal/bedpan at bedside;environmental modification;fall reduction program maintained;lighting adjusted for task/safety;low bed;muscle strengthening facilitated;nonskid shoes/slippers when out of bed;toileting scheduled Musculoskeletal Interventions Activity/Level of Assistance -- Positioning -- Muscle Strengthening -- Self-Care Promotion -- Morel Fall Risk History of Falling -- Secondary Diagnosis -- Ambulatory Aids -- Intravenous Therapy/Heparin/Saline Lock -- Gait/Transferring -- Mental Status -- Score -- OTHER Morel Fall Risk -- Goal: Infection Control Outcome: Ongoing (Interventions Implemented as Appropriate) 03/07/14206 Safety Interventions Isolation Precautions standard precautions maintained Infection Prevention environmental surveillance;bronchial hygiene promoted;hydration promoted;promote handwashing;rest/sleep promoted Coping/Psychosocial Response Interventions Counseling emotional support provided;personal strengths integrated;reassurance provided;verbalization of feelings encouraged Goal: Discharge Needs Assessment Outcome: Ongoing (Interventions Implemented as Appropriate) 03/06/14 1506 03/07/14206 Discharge Needs Assessment Concerns to be Addressed no discharge needs identified -- Readmission Within the Last 30 Days no previous admission in last 30 days -- Equipment Needed After Discharge none -- Discharge Planning Comments -- possible home with KENNEDI's-will need D/C teaching if home with kennedi's Living Environment Transportation Available family or friend will provide -- Self-Care Equipment Currently Used at Home none -- Current Health Anticipated Changes Related to Illness none -- Comments: OUTCOME EVALUATION NOTE: OUTCOME SUMMARY: pt. Has had a good night thus far-she has had no further nausea and is tolerating PO meds. 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 Pt. Has had stable vitals.pt.'s jps have heldgood suction overnight and have drained appropiate amounts. Pt. Has been compliant with wearing her abd. Binder constantly. Pt.'s lower abd. Dressing has not increased in small marked areas but has remained dry and intact. Pt. Has done her deep breathing with her I.S.pt. Has had good urine output. Pt.Able to be oob to br with one assist. PLAN MOVING FORWARD: Pt. Will need to have good pain control on po pain meds with has not yet been started. Pt. May need D/C teaching on how to empty her KENNEDI's if she goes home with them. Pt. Will need to continue to wear her abd. Binder at all times. INDIVIDUALIZED FALL PREVENTION: Assistance: oob with one nurse assist Supervision:hands on assist with ADL's Surveillance: Purposeful rounding, masimo CPG GOAL OUTCOME EVALUATION: Op Note - Anival Wright MD - 03/06/2014 4:28 PM EST [facility] Operative Note Patient Name: Kiya Rowan : [id number] MR#: [id number] Case Date: 03/06/2014 Surgeon: Surgeon(s) and Role: * Marcos Godinez MD - Primary * Anival Wright MD Preoperative diagnosis: recurrent panniculitis Postoperative diagnosis: recurrent panniculitis Procedure(s): ABDOMINOPLASTY MODIFIER PANNICULECTOMY Anesthesia: General Estimated Blood Loss: 300 mL Specimens removed during surgery: abdominal pannus Drains: bart x2 Surgical Closure: Primary Closure - closure of ALL tissue levels during the original surgery regardless of wires, wickes, drains, or other devices extruding through the incision Disposition: awakened from anesthesia, extubated and taken to the recovery room in a stable condition, having suffered no apparent untoward event. Condition: doing well without problems (Please see the Surgical Encounter Summary for any Implant and Specimen details pertinent to this patient.) HPI/Surgical Indications: 64 y/o female presents with recurrent intertriginous rashes underneath her abdominal pannus after self-motivated weight loss. Procedure Description: Informed consent was obtained. The risks, benefits, and alternatives were discussed. The risks include pain, bleeding, infection, scar, asymmetry, seroma, hematoma, umbilical/skin loss, wound dehiscence, injury to adjacent structures, and need for further surgery. She understands and wishes to proceed. She was taken to the operating room and placed in supine position. Anesthesia monitors and SCDs were placed. General endotracheal anesthesia was then obtained. The abdomen was prepped and draped in sterile fashion with chloraprep. Time-out was performed, confirming the patient's name, medical record number, birthdate, and procedure. Ancef 2 g IV was given preoperatively. A hai-shaped pattern was incised around the umbilicus. The incisions were deepened down to the fascia with hollis scissors, radiating outward to capture the periumbilical perforators. The inferior incision was then made in the natural crease underneath her pannus. The incision was deepened to the fascia, and suprafascial elevation was then performed, leaving a thin layer of subcutaneous tissue on the fascia to preserve the lymphatics. Careful attention was paid to avoid injuring the umbilicus during superior flap elevation. The superior flap was elevated to the costal margins on both sides and xyphoid. Any large perforators encountered during dissection were ligated with hemoclips. The waist wasthen flexed, and the superior flap was transposed onto the inferior flap. The redundant pannus was sequentially excised by tailor-tacking to the inferior flap. The pannus weighed 7 lbs, 14 oz. The wound was copiously irrigated, and hemostasis was obtained. 19 Fr bart drains were brought out at each flank with the right drain lower and left drain superior to the umbilicus. The incision was temporarily closed with josé manuel. The umbilicus was transposed to the superior flap at the level of the ASIS. A hai shaped incision was made through the skin and subcutis, and the umbilicus was delivered into the incision. The umbilicus was inset with 3-0 vicryl deep dermal sutures and running 4-0 chromic gut. The lower incision was closed with 0-vicryl in Yakelin's fascia, 3-0 vicryl and insorb josé manuel in the deep dermis, and running 3-0 monocryl. Dermabond was then applied. The incisions were dressed with primipore dressings. Needle, sponge, and instrument counts were correct. There were no intraoperative complications. The patient was extubated and taken to the PACU in stable condition. Associated attestation - Marcos Godinez MD - 03/06/2014 4:43 PM EST Attestation: Case Date: 03/06/2014 I was present and I participated during the entire procedure except for the opening and closing which overlapped with the opening or closing of another case. The overlapping portions were non-lewis portions and I was immediately available MARCOS GODINEZ MD 03/06/2014 Plan of Care - Estefani Osborne RN - 03/06/2014 3:22 PM EST Problem: General Plan of Care Goal: Plan of Care Review Outcome: Ongoing (Interventions Implemented as Appropriate) 03/06/14 1506 Coping/Psychosocial Response Interventions Plan of Care Reviewed with patient;spouse Plan of Care Review Plan of Care Outcome Status ongoing (interventions implemented as appropriate) Progress progress toward functional goals as expected OUTCOME EVALUATION NOTE: OUTCOME SUMMARY: Patient received from PACU via bed to SSU12. Is drowsy but appropriate. Oriented to SSU routine and call woodall system. PLAN MOVING FORWARD: POC reviewed with patient and . INDIVIDUALIZED FALL PREVENTION: Assistance: Have ordered commode for bedside for first void due to patient's drowsiness. Able to drink independently. assisting in filling out menu. Supervision: Will assist with ambulation and monitor closely. Surveillance: Bed alarm on, at bedside. Continuous pulse ox. CPG GOAL OUTCOME EVALUATION: Goal: Individualization and Mutuality Outcome: Ongoing (Interventions Implemented as Appropriate) Goal: Fall Prevention-Safe Patient Handling Outcome: Ongoing (Interventions Implemented as Appropriate) 03/06/14 1506 Safety Interventions Safety Precautions/Fall Reduction bed alarm;fall reduction program maintained;lighting adjusted for task/safety;nonskid shoes/slippers when out of bed Musculoskeletal Interventions Activity/Level of Assistance with 1-person assist Positioning HOB up 30 degrees Muscle Strengthening activity/mobility promoted Self-Care Promotion personal routines for BADL/IADL promoted;independence encouraged while providingassistance Morel Fall Risk History of Falling 0 Secondary Diagnosis 15 Ambulatory Aids 0 Intravenous Therapy/Heparin/Saline Lock 20 Gait/Transferring 0 Mental Status 0 Score 35 OTHER Morel Fall Risk Medium (25-44) Goal: Infection Control Outcome: Ongoing (Interventions Implemented as Appropriate) 03/06/14 1506 Safety Interventions Isolation Precautions standard precautions maintained Infection Prevention environmental surveillance;hydration promoted;nutrition promoted;rest/sleep promoted Coping/Psychosocial Response Interventions Counseling goal setting facilitated Goal: Discharge Needs Assessment Outcome: Ongoing (Interventions Implemented as Appropriate) 03/06/14 1506 Discharge Needs Assessment Concerns to be Addressed no discharge needs identified Readmission Within the Last 30 Days no previous admission in last 30 days Equipment Needed After Discharge none Discharge Planning Comments Plans to go home tomorrow with Living Environment Transportation Available family or friend will provide Self-Care Equipment Currently Used at Home none Current Health Anticipated Changes Related to Illness none Brief Op Note - Anival Wright MD - 03/06/2014 11:46 AM EST Brief Operative Note Patient Name: Kiya Rowan : [id number] MR#: [id number] Case Date: 03/06/2014 Surgeon: Surgeon(s) and Role: * Marcos Godinez MD - Primary * Anival Wright MD Preoperative diagnosis: recurrent panniculitis Postoperative diagnosis: recurrent panniculitis Procedure(s): ABDOMINOPLASTY MODIFIER PANNICULECTOMY Anesthesia: General Findings: 7 lbs, 14 oz excised Complications: none Fluids: 1000 cc Estimated Blood Loss: 300 mL Drains: bart x2 Disposition: awakened from anesthesia, extubated and taken to the recovery room in a stable condition, having suffered no apparent untoward event. Condition: doing well without problems (Please see the Surgical Encounter Summary for any Implant and Specimen details pertinent to this patient.) documented in this encounter Plan of Treatment Upcoming Encounters Date Type Specialty Care Team Description 11/24/2021 Office Visit Neurology Gregg Lacy MD [place], [place] [address] (Tulio raymond) 04/06/2022 Appointment Radiology 04/06/2022 Office Visit Orthopaedics Wally Rouse MD [facility] [place], [place] [address] (Tulio raymond) documented as of this encounter Procedures Procedure Name Priority Date/Time Associated Diagnosis Comme nts SPECIMEN TO PATHOLOGY Routine 03/06/2014 11:21 Re sults for this AM EST procedure are i n the results section. SURGICAL PATHOLOGY Routine 03/06/2014 11:20 Resul ts for this REPORT AM EST procedure are i n the results section. MODIFIER 03/06/2014 9:50 panniculitis PANNICULECTOMY AM EST PANNICULECTOMY 03/06/2014 9:50 panniculitis AM EST POCT HGB Routine 03/06/2014 Results for thi s procedure are i n the results section. documented in this encounter Results Specimen to Pathology (surgical or derm) (03/06/2014 11:21 AM EST) Specimen Anatomical Collection Method Collection Time Receive d Time (Source) Location / / Volume Laterality AP Specimen 03/06/2014 11:21 03/06/2014 AM EST 11:21 AM EST Narrative [facility] - 03/06/2014 11:21 AM EST Specimen requisition ordered. ??Separate Pathology report to follow Marcos Godinez MD PATHOLOGY/CYTOLOGY ORDERABLE S Performing Organization Address City/State/[place] [address] [facility]ology Report (03/06/2014 11:20 AM EST) [facility] gist Method Time Signature Surgical [facility] ? [facility] ? Provider: ?? MARCOS GODINEZ ? Pt. Name: ?? KIYA ROWAN ? Acc #: ?[id number] ?Pt. MRN: ?[id number] ? Col Date: ?? 03/06/2014 ?/Sex: ?1 ,(64 ? years),Female ? Rec Date: ?? 03/06/2014 ?LOC: ?[facility] ? SURGICAL PATHOLOGY ? ---Pathologic Diagnosis--- ? A - Panniculus. ?Gross surgical pathology examination. ? Cr-0 ? 03/06/14 ? PPS ? 03/10/14 Verified by: ? Villa Martinez MD ? Pathologist ? (Electronic Si gnature) ? The attending pathologist whose signature appears o n this report has ? reviewed all diagnostic slides and has edited the leanne ss and/or ? microscopic portion of the report in rendering the fi nal pathologic ? diagnosis. ? ---Gross Description--- ? A - Labeled/Fixative: Panniculus, fresh. ? Quantity/Size: Fragments, aggrega ting 35.2 x 24.3 x 8.3 cm, 3600 grams. ? Tissue Description: P ortions of sin-yellow fibroadipose tissue and skin. ? Sections/Processing: Sections reveal lobular fibroadipose tissue without ? lesions grossly. (No sections are submitted. Gross examination only.) ??pps ? ---Clinical Information--- ? Specimen Submitted: ? A - Pannus ? Clinical History: ? Panniculitis ? Clinical Diagnosis: ? Panniculitis Specimen (Source) Anatomical Collection Method Collection Time Re ceived Time Location / / Volume Laterality 03/06/2014 11:20 AM EST Marcos Godinez MD PATHOLOGY/CYTOLOGY ORDERABLE S Performing Organization Address City/State/[place] [address] [facility] POCT HGB (03/06/2014) P athologist Signature POC Hemoglobin 15.0 g/dL Specimen (Source) Anatomical Location Collection Method / Collectio n Time Received Time / Laterality Volume 03/06/2014 Marcos Godinez MD POINT OF CARE TEST ORDERABLE S documented in this encounter Visit Diagnoses Not on filedocumented in this encounter Administered Medications Inactive Administered Medications - up to 3 most recent administrations Medication Order MAR Action Action Date Dose Rate Site acetaminophen (TYLENOL) tablet Given 03/06/2014 9:11 AM EST 1,00 0 mg 1,000 mg 1,000 mg, Oral, ONCE, 1 dose, On Sun03/06/14 at 0915, Maximum dose of acetaminophen is 4000 mg from all sources in 24 hours., Day of Surgery (Day of Procedure), Routine BUpivacaine-EPINEPHrine 0.25 %-1:200,000 Given 03/06/2014 11:45 AM EST 20 mLs injection ONCE PRN, Starting on Sun03/06/14 at 1145, Until Sun03/06/14 at 1437, Intra-Operative (Intra-Procedure), Routine buPROPion (WELLBUTRIN XL) XL tablet 150 mg Given 03/07/2014 6:48 AM EST 150 mg 150 mg, Oral, EVERY MORNING, First dose on Sun03/07/14 at 0700, Until Discontinued, Routine ceFAZolin (ANCEF) 2g in dextrose 5% 50 Given 03/06/2014 10:0 0 AM EST 2 g 100 mL/hr mL 2 g, Intravenous, 30 MIN PRE-OP, 1 dose, On Sun03/06/14 at 0945, Administer over 30 Minutes, Indication for (Active or Suspected): Prophylaxis ceFAZolin (ANCEF) 2g in dextrose 5% 50 Given 03/06/2014 9:03 PM EST 2 g 100 mL/hr mL 2 g, Intravenous, EVERY 8 HOURS, 2 doses, First dose on Sun03/06/14 at 1230, Last dose on Sun03/06/14 at 2030, Administer over 30 Minutes, *Beta-lactam based antibiotics (eg. Ampicillin, Cefazolin, Aztreonam) should be administered within 4 hours of the preceding intraoperative dose. *Vancomycin, Flouroquinolones, Clindamycin, Gentamicin, and Metronidazole should be administered within 8 hours of the preceding intraoperative dose., Indication for (Active or Suspected): Prophylaxis Given 03/06/2014 2:01 PM EST 2 g 100 mL/hr desipramine (NOPRAMIN) tablet 10 mg Given 03/06/2014 10:48 PM EST 10 mg 10 mg, Oral, NIGHTLY, First dose on Sun03/06/14 at 2100, Until Discontinued docusate sodium (COLACE) capsule 100 mg Given 03/07/2014 9:50 AM EST 100 mg 100 mg, Oral, 2 TIMES DAILY, First dose on Sun03/06/14 at 2100, Until Discontinued, Routine Given 03/06/2014 8:59 PM EST 100 mg enoxaparin (LOVENOX) injection 40 mg Given 03/07/2014 9:50 AM EST 40 mg 40 mg, Subcutaneous, DAILY, First dose on Sun03/06/14 at 1800, Until Discontinued, Routine Given 03/06/2014 6:24 PM EST 40 mg escitalopram oxalate (LEXAPRO) tablet 20 mg Given 03/07/2014 9:50 AM EST 20 mg 20 mg, Oral, DAILY, First dose on Sun03/06/14 at 1700, Until Discontinued, Routine Given 03/06/2014 8:58 PM EST 20 mg gabapentin (NEURONTIN) capsule 600 mg Given 03/06/2014 9:11 AM EST 600 mg 600 mg, Oral, ONCE, 1 dose, On Sun03/06/14 at 0915, Day of Surgery (Day of Procedure), Routine HYDROmorphone (DILAUDID) 0.2 mg/mL 10mL Given 03/06/2014 12:42 P M EST 0.2 mg Syringe (IR ONLY) 0.2-0.4 mg, Intravenous, EVERY 5 MIN PRN, Pain, Starting on Sun03/06/14 at 1148, Until Sun03/06/14 at 1437, For moderate pain (4-6) give: 0.2 mg every 5 minute prn For severe pain (7-10) give: 0.4 mg every 5 minutes prn Maximum dose: 4 mg per hour Hold for respiratory rate less than 10 per minute., PACU Recovery Given 03/06/2014 12:32 PM EST 0.2 mg Given 03/06/2014 12:25 PM EST 0.2 mg HYDROmorphone (DILAUDID) 1 New Syringe/Cartridge 03/06/2014 12:17 PM EST 30 mg mg/mL SENIOR TAX ANALYST 30 mL Intravenous, SENIOR TAX ANALYST ONLY, Starting on Sun03/06/14 at 1230, Until 03/07/14 at 0753 lactated ringers infusion 1,000 New Bag 03/06/2014 9:11 AM EST 1,000 mLs 100 mL/hr mL 1,000 mL, at 100 mL/hr, Intravenous, CONTINUOUS, Starting on Sun03/06/14 at 0915, Until Sun03/06/14 at 1437, Day of Surgery (Day of Procedure) New Bag 03/06/2014 9:06 AM EST 1,000 mLs 100 mL/hr lactated ringers infusion 1,000 New Bag 03/07/2014 6:16 AM EST 1,000 mLs 100 mL/hr mL 1,000 mL, at 100 mL/hr, Intravenous, CONTINUOUS, Starting on Sun03/06/14 at 1230, Until 03/07/14 at 0753 New Bag 03/06/2014 9:09 PM EST 1,000 mLs 100 mL/hr New Bag 03/06/2014 12:20 PM EST 1,000 mLs 100 mL/hr lactobacillus (BACID) tablet 1 tablet Given 03/07/2014 9:50 AM EST 1 tablet 1 tablet, Oral, DAILY, First dose on Sun03/06/14 at 1700, Until Discontinued, Routine Given 03/06/2014 6:24 PM EST 1 tablet levothyroxine (SYNTHROID) tablet 100 mcg Given 03/07/2014 6:05 AM EST 100 mcg 100 mcg, Oral, EVERY MORNING, First dose on 03/07/14 at 0600, Until Discontinued, Routine LORazepam (ATIVAN) injection 0.5 mg Given 03/06/2014 12:56 PM EST 0.5 mg 0.5 mg, Intravenous, EVERY 30 MIN PRN, 2 doses, Starting on Sun03/06/14 at 1252, Until 03/07/14 at 1516, Anxiety, Recovery (Recovery-Hospital Unit), Routine oxyCODONE (ROXICODONE) immediate release Given 03/07/2014 11:54 AM EST 5 mg tablet 5-10 mg 5-10 mg, Oral, EVERY 4 HOURS PRN, Starting on Sun03/06/14 at 1438, Until 03/07/14 at 1516, Pain, Give 5 mg for pain 3-6 Give 10 mg for pain 7-10, Routine Given 03/07/2014 7:56 AM EST 5 mg sodium chloride 0.9 % flush 5 mL Given 03/07/2014 9:50 AM EST 5 mLs 5 mL, Intravenous, 2 TIMES DAILY, First dose on Sun03/06/14 at 2100, Until Discontinued, Routine Given 03/06/2014 9:01 PM EST 5 mLs documented in this encounter Active and Recently Administered Medications Times are shown in EST. Scheduled Medication Order 03/05/2014 03/06/2014 03/07/2014 acetaminophen (TYLENOL) tablet 1,000 mg (COMPLETED) 0911 (Given - Provider: Lina Rangel RN) 1,000 mg, Oral, ONCE, 1 dose, Sun at 0915, Maximum dose of acetaminophen is 4000 mg from all sources in 24 hours., Day of Surgery (Day of Procedure), Routine buPROPion (WELLBUTRIN XL) XL tablet 150 mg (CANCELED) 0648 (Given - Provider: Anum Lou RN) 150 mg, Oral, EVERY MORNING, First dose on Sun03/07/14 at 0700, Until Discontinued, Routine ceFAZolin (ANCEF) 2g in dextrose 5% 50 mL (COMPLETED) 1000 (Given - Provider: Elvia Johnson RN - Comment: Given at 1000 per anesthesia record) 2 g, Intravenous, 30 MIN PRE-OP, 1 dose, Sun03/06/14 at 0945, for 30 Minutes, Indication for (Active or Suspected): Prophylaxis ceFAZolin (ANCEF) 2g in dextrose 5% 50 mL (COMPLETED) 1401 (Given - Provider: Elvia Johnson RN - Comment: 1st dose given in OR at 1000 per anesthesia record)2103 (Given - Provider: Anum Lou RN) 2 g, Intravenous, EVERY 8 HOURS, 2 doses , First dose on Sun03/06/14 at 1230, Last dose on Sun03/06/14 at 2030, for 30 Minutes, *Beta-lactam based antibiotics (eg. Ampicillin, Cefazolin, Aztreonam) moreno uld be administered within 4 hours of th e preceding intraoperative dose. *Vancomycin, Flouroquinolones, Clindamycin, Gentamicin, and Metronidazole should be administered within 8 hours of the preceding intraoperative dose., Indication for (Active or Suspected): Prop hylaxis desipramine (NOPRAMIN) tablet 10 mg (CANCELED) 2247 (Given - Provider: Anum Lou RN) 10 mg, Oral, NIGHTLY, First dose on Sun03/06/14 at 2100, Until Discontinued docusate sodium (COLACE) capsule 100 mg (CANCELED) 2058 (Given - Provider: Anum Lou, YUMIKO) 0950 (Given - Provider: Estefani Osborne , YUMIKO) 100 mg, Oral, 2 TIMES DAILY, First dose on Sun03/06/14 at 2100, Until Discontinued, Routine enoxaparin (LOVENOX) injection 40 mg (CANCELED) 1823 (Given - Provider: Estefani Osborne RN) 0950 (Given - Provider: Estefani Osborne , YUMIKO) 40 mg, Subcutaneous, DAILY, First dose o n Sun03/06/14 at 1800, Until Discontinued, Routine escitalopram oxalate (LEXAPRO) tablet 20 mg (CANCELED) 2057 (Given - Provider: Anum Lou RN) 0950 (Given - Provider: Estefani Osborne , YUMIKO) 20 mg, Oral, DAILY, First dose on Sun at 1700, Until Discontinued, Routine gabapentin (NEURONTIN) capsule 600 mg (COMPLETED) 910 (Given - Provider: Lina Rangel RN) 600 mg, Oral, ONCE, 1 dose, Sun03/06/14 at 0915, Day of Surgery (Day of Procedure), Routine lactobacillus (BACID) tablet 1 tablet (CANCELED) 1823 (Given - Provider: Estefani Osborne RN) 0950 (Given - Provider: Estefani Osborne , YUMIKO) 1 tablet, Oral, DAILY, First dose on Sun03/06/14 at 1700, Until Discontinued, Routine levothyroxine (SYNTHROID) tablet 100 mcg (CANCELED) 604 (Given - Provider: Anum Lou RN) 100 mcg, Oral, EVERY MORNING, First dose on Sun03/07/14 at 0600, Until Discontinued, Routine sodium chloride 0.9 % flush 5 mL (CANCELED) 2100 (Given - Provider: Anum Lou RN) 0950 (Given - Provider: Estefani Osborne , YUMIKO) 5 mL, Intravenous, 2 TIMES DAILY, First dose on Sun03/06/14 at 2100, Until Discontinued, Routine Continuous Medication Order 03/05/2014 03/06/2014 03/07/2014 HYDROmorphone (DILAUDID) 1 mg/mL SENIOR TAX ANALYST 30 mL (CANCELED) 1217 (New Syringe/Cartridge - Provider: Elvia Johnson, YUMIKO) Intravenous, SENIOR TAX ANALYST ONLY, Starting 02/10 at 1230, Until 03/07/14 at 0753 lactated ringers infusion 1,000 mL (CANCELED) 0906 (New Bag - Provider: Lina Rangel, YUMIKO)0911 (New Bag - Provider: Lina Rangel RN) 1,000 mL, at 100 mL/hr, Intravenous, CON TINUOUS, Starting Sun03/06/14 at 0915, Until Sun03/06/14 at 1437, Day of Surgery (Day of Procedure) lactated ringers infusion 1,000 mL (CANCELED) 1220 (New Bag - Provider: Elvia Johnson RN)2109 (New Bag - Provider: Anum Lou, YUMIKO) 0616 (New Bag - Provider: Anum Lou, YUMIKO) 1,000 mL, at 100 mL/hr, Intravenous, CON TINUOUS, Starting Sun03/06/14 at 1230, Until 03/07/14 at 0753 PRN Medication Order 03/05/2014 03/06/2014 03/07/2014 BUpivacaine-EPINEPHrine 0.25 %-1:200,000 injection (CANCELED ) 1145 (Given - Provider: Maninder Drummond RN) ONCE PRN, Starting Sun03/06/14 at 1145, Until Sun03/06/14 at 1437, Intra- Operative (Intra-Procedure), Routine HYDROmorphone (DILAUDID) 0.2 mg/mL 10mL Syringe (IR ONLY) (C ANCELED) 1210 (Given - Provider: Elvia Johnson, YUMIKO)1219 (Given - Provider: Elvia Johnson, YUMIKO)1225 (Given - Provider: Elvia Johnson, YUMIKO)1232 (Given - Provider: Elvia Johnson, YUMIKO)1242 (Given - Provider: Elvia Johnson, YUMIKO) 0.2-0.4 mg, Intravenous, EVERY 5 MIN PRN , Starting Sun03/06/14 at 1148, Until Sun03/06/14 at 1437, Pain, For moderate pain (4-6) give: 0.2 mg every 5 minute prn For severe pain (7-10) give: 0.4 mg roopa ry 5 minutes prn Maximum dose: 4 mg per hour Hold for respiratory rate less than 10 per minute., PACU Recovery, Routine LORazepam (ATIVAN) injection 0.5 mg (CANCELED) 1256 (Given - Provider: Elvia Johnson, YUMIKO) 0.5 mg, Intravenous, EVERY 30 MIN PRN, 2 doses, Starting Sun03/06/14 at 1252, Until 03/07/14 at 1516, Anxiety, Recovery (Hospital to IP), Routine oxyCODONE (ROXICODONE) immediate release tablet 5-10 mg 0756 (Given - Provider: Estefani Osborne, YUMIKO)[id number] (Given - Provider: Estefani Osborne, YUMIKO - Comment: medicated at patient's request for ride home) 5-10 mg, Oral, EVERY 4 HOURS PRN, Starti ng Sun03/06/14 at 1438, Until 03/07/14 at 1516, Pain, Give 5 mg for pain 3-6 Give 10 mg for pain 7-10, Routine documented in this encounter Care Teams Machine Sneller Relationship Specialty Start Date End Date Nelly Rizvi MD PCP - General 02/01/10 02/19/18 [address] [place] [address] documented as of this encounter
--- OUTSIDE RECORDS SUMMARY | 2021-10-13 15:54 | XMS_ITS | Encounter Summary ---
:1950 Author Organization [facility] [place] [address] Care Team Providers Name Role Phone Nelly Lord MD Primary Care Provider Reason for Visit Reason Comments Follow-up Encounter Details Date Type Department Care Team Description 2012 Office Visit Pulmonology at [facility] [place]ry, Asthma (Primary Dx) [facility] [place] [address] PULMONARY MEDICI [place], [place] [address] Social History Tobacco Use Types Packs/Day Years Used Date Former Smoker Sex Assigned at Date Recorded Female 01/18/2021 7:28 AM EST documented as of this encounter Last Filed Vital Signs Vital Sign Reading Time Taken Comments Blood Pressure 128/75 2012 11:32 AM EDT Pulse 74 2012 11:32 AM EDT Temperature - - Respiratory Rate 18 2012 11:32 AM EDT Oxygen Saturation 96% 2012 11:32 AM EDT Inhaled Oxygen Concentration - - Weight 113.4 kg (249 lb 14.4 oz) 2012 11:32 AM EDT Height 162.6 cm (5' 4) 2012 11:32 AM EDT Body Mass Index 42.9 2012 11:32 AM EDT documented in this encounter Progress Notes Andree Gonzales MD - 2012 12:28 PM EDT Kiya Cummings is a 61 y.o.woman who presents for evaluation and management of lung nodules. She was sent for a consult by NELLY LORD MD. The results of this consult will be shared electronically. I have personally reviewed her notes, radiologic data, labs and images. Kiya is a 62-year-old woman with a remote smoking history who presents for evaluation and managements of lung nodules. She was seen and evaluated in 07/2011 when she had shortness of breath and central chest discomfort. A CT scan was performed to rule out PE. The CT scan at that time did not show any pulmonary emboli, but two tiny noncalcified pulmonary nodules were noted. There was mentioned of 0.5 cm nodule in the anterior aspect of the right middle lobe and a 0.5 mm nodule in the posteromedial aspect of the left lower lobe. She was seen at her primary care's office in November after a recent row trip to [place] complaining of some shortness of breath and back pain on deep inspiration. She was sent to the ED where she was found to have an elevated d-dimer and a CT scan was again performed to rule out pulmonary embolism. She was noted to have a 4.5 mm nodule in the left lower lobe and a 6.9 mm nodule in the right lower lobe. No adenopathy was noted. She was started on anticoagulation and is currently on Coumadin with active attempts to modulate her level of anticoagulation. She reports that she has had her age appropriate cancer screenings and there is no history of cancer amongst her siblings. Her mom had vaginal cancer. There is no history of coagulopathy or thromboembolic disease in the family. She has no joint or skin lesions and no symptoms to suggest a collagen vascular disorder. She has no fever, chills, rigors, or night sweats. Her weight has been stable. Her activity level has been stable. There is no leg swelling. She has no neurologic symptoms. She has no GI or symptoms. Please see her social history below for the pertinent exposure history. PAST MEDICAL HISTORY: 1. Obstructive sleep apnea on CPAP. 2. Asthma. 3. Obesity with fatty liver disease. 4. Fibromyalgia. 5. Arthritis. 6. Gastroesophageal reflux disease. 7. Depression. Pulmonary embolism - on coumadin HTN Shoulder/hip/knee surgery - 2001 Cystocele/rectocele - 2006 Hysterectomy - 1981 Medications and allergies reviewed as a part of this encounter. SOCIAL HISTORY: Ex-smoker. 1 pack/day x 12 years. 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 They have lived in this house x 26 years 2 dogs Exposed to mold FAMILY HISTORY: Father - Mother - vaginal cancer 5 sisters, 4 brothers 2 children in their 30s Review of Systems: Please see HPI for all pertinent positives and negatives. All others negative. PHYSICAL EXAMINATION: BP 128/75 Pulse 74 Resp 18 Ht 162.6 cm (5' 4) Wt 113.354 kg (249 lb 14.4 oz) BMI 42.90 kg/m2 SpO2 96% on RA at rest No clubbing, icterus or cyanosis General appearance: alert and appears stated age Nose: no discharge Throat: normal findings: tongue midline and normal Lungs: clear to auscultation bilaterally Heart: regular rate and rhythm, S1, S2 normal, no murmur, click, rub or gallop Abdomen: soft, non-tender; bowel sounds normal; no masses, no organomegaly Extremities: warm, well-perfused Pulses: 2+ and symmetric Lymph nodes: Cervical, supraclavicular, and axillary nodes normal. Neurologic: Mental status: Alert, oriented, thought content appropriate LABS/IMAGING: December 2011: FVC: 3.31 (101%) FEV1: 2.67 (106%) FEV1/FVC: 81% DLCO: 129% The oxygen saturation on room air at rest is normal. There was no significant desaturation on ambulation on room air. Images from CT chest OAS x 2 reviewed with the patient and her at this visit. ASSESSMENT/RECOMMENDATIONS: This is a 62-year-old woman with a remote smoking history who presents for evaluation and management of multiple pulmonary nodules. Her spirometry today is normal. She has an elevated diffusion capacity. There is no significant desaturation on ambulation on room air. I personally reviewed both CT chest from July and November with the patient and her at this visit to identify the lung nodules. I did note the right middle lobe lesion and one in the left lower lobe. I discussed with her that these were most likely to be benign, however, given her smoking history and level of exposure to the radon within home, we would want to repeat imaging to assess for any change in the size of these nodules. I recommended a repeat CT image in four months. The nodules at the present time are too small to biopsy by a percutaneous CT-guided needle biopsy and they are not amenable to bronchoscopic evaluation. Her asthma seems fairly well controlled on her current regime and no adjustments were made. Plan to f/u in 4 months with repeat low dose, non-contrast, CT chest prior. ANDREE GONZALES MD documented in this encounter Plan of Treatment Upcoming Encounters Date Type Specialty Care Team Description 11/24/2021 Office Visit Neurology Gregg Lacy MD [place], [place] [address] (Wo rk) 04/06/2022 Appointment Radiology 04/06/2022 Office Visit Orthopaedics Wally Rouse MD [facility] ORTHOPAEDIC SURG [place], [place] [address] (Wo rk) documented as of this encounter Results CT chest WO contrast (04/19/2012 9:56 AM EST) Anatomical Region Laterality Modality Chest Computed Tomography Specimen (Source) Anatomical Collection Method Collection Time Re ceived Time Location / / Volume Laterality 04/19/2012 9:56 AM EST Narrative 04/19/2012 10:[address] Chest Without Contrast Clinical History Low dose/limited/CT chest with volumetri c analysis to follow pulmonary nodules pulmonary nodules in past smoker Comparison Outside chest CT dated 11/20/2011 and . Technique the patient was scanned from the sternal angle through the diaphragm without the use of IV contrast. ??Low dose techn ique (MA 99) was used Findings There is a sub 5 mm nodule in the right middle lobe (series 3 image 34). ??In comparison to the original outside chest CT from 07/20/2011, this nodule has decreased in size. ??There is an ill-def ined nodular opacity in the minor fissure (series 3 image 29) with a plaqu e-like shape on the coronal image (series 601 image 69). ??In comparison t o the prior CT scans this finding is unchanged and most likely represents a b enign intrapleural lymph node. Finally, there is a sub 5 mm nodule in the extrem e left lower lobe (series 3 image 48), which has also decreased in size in comp arison to the original outside CT scan. The lungs are otherwise clear. ??No enla rged lymph nodes or other abnormalities are seen in the chest. Below the diaphragm, the previously repo rted fatty liver cannot be confirmed because of the low dose technique. ??In addition, the previously reported left adrenal nodule is not included on the sc an. Impression Small benign nodules in right middle lob e and left lower lobe. Small intrapleural lymph node, unchanged . No significant chest abnormality. Procedure Note Kurt Diggs MD - 04/19/2012Formatt ing of this note might be different from the original. Examination CT Chest Without Contrast Clinical History Low dose/limited/CT chest with volumetri c analysis to follow pulmonary nodules pulmonary nodules in past smoker Comparison Outside chest CT dated 11/20/2011 and . Technique the patient was scanned from the sternal angle through the diaphragm without the use of IV contrast. Low dose techniq ue (MA 99) was used Findings There is a sub 5 mm nodule in the right middle lobe (series 3 image 34). In comparison to the original outside chest CT from 07/20/2011, this nodule has decreased in size. There is an ill-defin ed nodular opacity in the minor fissure (series 3 image 29) with a plaqu e-like shape on the coronal image (series 601 image 69). In comparison to the prior CT scans this finding is unchanged and most likely represents a b enign intrapleural lymph node. Finally, there is a sub 5 mm nodule in the extrem e left lower lobe (series 3 image 48), which has also decreased in size in comp arison to the original outside CT scan. The lungs are otherwise clear. No enlarg ed lymph nodes or other abnormalities are seen in the chest. Below the diaphragm, the previously repo rted fatty liver cannot be confirmed because of the low dose technique. In ad dition, the previously reported left adrenal nodule is not included on the sc an. Impression Small benign nodules in right middle lob e and left lower lobe. Small intrapleural lymph node, unchanged . No significant chest abnormality. Andree Gonzales MD IMG CT ORDERABLES Nitric Oxide exp gas, determ, nurse (01/08/2012 11:39 AM EDT) Narrative 01/08/2012 11:39 [...] Andree Gonzales MD PROCEDURE/MINOR SURGICAL ORD ERABLES documented in this encounter Visit Diagnoses Diagnosis Asthma - Primary Unspecified asthma Lung nodule - Primary Solitary pulmonary nodule Asthma - Primary Unspecified asthma Asthma Unspecified asthma documented in this encounter Care Teams Test Bore Helper Relationship Specialty Start Date End Date Nelly Lord MD PCP - General 02/01/10 02/19/18 [address] [place] [address] documented as of this encounter
--- OUTSIDE RECORDS SUMMARY | 2021-10-13 15:54 | XMS_ITS | Encounter Summary ---
:1950 Author Organization [facility] [place] [address] Care Team Providers Name Role Phone Dallas Rizvi MD Primary Care Provider Encounter Details Date Type Department Care Team Description 11/20/2011 Orders Only Pul[place]ology at [facility] [place] Andree Pittman, [facility] [place] [address] [facility] [phone] PULMONARY MEDICI [place], [place] [address] (Wo rk) Social History Tobacco Use Types Packs/Day Years Used Date Never Assessed Sex Assigned at Date Recorded Female 01/18/2021 7:28 AM EST documented as of this encounter Plan of Treatment Upcoming Encounters Date Type Specialty Care Team Description 11/24/2021 Office Visit Neurology Gregg Lacy MD [place], [place] [address] (Wo rk) 04/06/2022 Appointment Radiology 04/06/2022 Office Visit Orthopaedics Wally Rouse MD [facility] ORTHOPAEDIC SURG [place], [place] [address] (Wo rk) documented as of this encounter Procedures Procedure Name Priority Date/Time Associated Diagnosis Comme nts FILM LIBRARY Routine 11/20/2011 2:05 PM Results f or this STORAGE ONLY CT EDT procedure ar e in CHEST the results section. documented in this encounter Results FILM LIBRARY- STORAGE ONLY CT CHEST (11/20/2011 2:05 PM EDT) Anatomical Region Laterality Modality Chest Other Specimen (Source) Anatomical Collection Method Collection Time Re ceived Time Location / / Volume Laterality 11/20/2011 2:05 PM EDT Narrative 04/29/2013 7:24 PM EST This is a non-reportable exam. Procedure Note MarionDelroy - 04/29/2013Formatting of t his note might be different from the original. This is a non-reportable exam. Andree Pittman MD IMG FILM LIBRARY ORDERABLES documented in this encounter Visit Diagnoses Not on filedocumented in this encounter Care Teams Readers' Advisory Service Librarian Relationship Specialty Start Date End Date Dallas Rizvi MD PCP - General 02/01/10 02/19/18 [address] [place] [address] documented as of this encounter
--- OUTSIDE RECORDS SUMMARY | 2021-10-13 15:54 | XMS_ITS | Encounter Summary ---
:1950 Author Organization [facility] [place] [address] Care Team Providers Name Role Phone Dallas Rizvi MD Primary Care Provider Encounter Details Date Type Department Care Team Description 07/19/2011 Orders Only [place] at [facility] [place]ree Pittman, [facility] [place] [address] [facility] [phone] PULMONARY MEDICI [place], [place] [address] (Wo rk) Social History Tobacco Use Types Packs/Day Years Used Date Never Assessed Sex Assigned at Date Recorded Female 01/18/2021 7:28 AM EST documented as of this encounter Plan of Treatment Upcoming Encounters Date Type Specialty Care Team Description 11/24/2021 Office Visit Neurology Gregg Lacy MD [place], [place] [address] (Wo rk) 04/06/2022 Appointment Radiology 04/06/2022 Office Visit Orthopaedics Wally Rouse MD [facility] ORTHOPAEDIC SURG [place], [place] [address] (Wo rk) documented as of this encounter Procedures Procedure Name Priority Date/Time Associated Diagnosis Comme nts FILM LIBRARY Routine 07/19/2011 2:15 PM Results f or this STORAGE ONLY DX EDT procedure ar e in CHEST the results section. documented in this encounter Results FILM LIBRARY- STORAGE ONLY DX CHEST (07/19/2011 2:15 PM EDT) Anatomical Region Laterality Modality Other Specimen (Source) Anatomical Collection Method Collection Time Re ceived Time Location / / Volume Laterality 07/19/2011 2:15 PM EDT Narrative 04/29/2013 7:24 PM EST This is a non-reportable exam. Procedure Note MarionDelroy - 04/29/2013Formatting of t his note might be different from the original. This is a non-reportable exam. Andree Pittman MD G FILM LIBRARY ORDERABLES documented in this encounter Visit Diagnoses Not on filedocumented in this encounter Care Teams Rubber Cutting Machine Tender Relationship Specialty Start Date End Date Dallas Rizvi MD PCP - General 02/01/10 02/19/18 [address] [place] [address] documented as of this encounter
--- OUTSIDE RECORDS SUMMARY | 2021-10-13 15:54 | XMS_ITS | Encounter Summary ---
:1950 Author Organization [facility] [place] [address] Care Team Providers Name Role Phone Dallas Rizvi MD Primary Care Provider Reason for Visit Reason Comments Asthma Encounter Details Date Type Department Care Team Description 2012 [place] [facility] [place] Asthma (Primary Dx) [place] [address] Social History Tobacco Use Types Packs/Day Years Used Date Former Smoker Sex Assigned at Date Recorded Female 01/18/2021 7:28 AM EST documented as of this encounter Progress Notes Muriel Nuno I - 2012 1:22 PM EDT Nioxx done in [facility]ulmonary [facility], ordered by Dr. Andree Gonzales. Resut is 14. documented in this encounter Plan of Treatment Upcoming Encounters Date Type Specialty Care Team Description 11/24/2021 Office Visit Neurology Gregg Lacy MD [place], [place] [address] (Wo rk) 04/06/2022 Appointment Radiology 04/06/2022 Office Visit Orthopaedics Wally Rouse MD [facility] ORTHOPAEDIC SURG [place] [address] (Wo rk) documented as of this encounter Results Nitric Oxide exp gas, determ, nurse (01/08/2012 [...] pulmonary nodule Asthma - Primary Unspecified asthma documented in this encounter Care Teams Supply Analyst Relationship Specialty Start Date End Date Dallas Rizvi MD PCP - General 02/01/10 02/19/18 [address] [place] [address] documented as of this encounter
--- OUTSIDE RECORDS SUMMARY | 2021-10-13 15:54 | XMS_ITS | Encounter Summary ---
:1950 Author Organization [facility] [place] [address] Care Team Providers Name Role Phone Dallas Rizvi MD Primary Care Provider Encounter Details Date Type Department Care Team Description 10/06/2013 Telephone Plastic Surgery at [facility] [place] [address] Social History Tobacco Use Types Packs/Day Years Used Date Former Smoker Cigarettes 1 10 Quit: 05/10/18 78 Smokeless Tobacco: Never Used Alcohol Use Standard Drinks/Week Comments No 0 (1 standard drink = 0.6 oz pure alcoho l) Sex Assigned at Date Recorded Female 01/18/2021 7:28 AM EST documented as of this encounter Miscellaneous Notes Telephone Encounter - Stacy Lee - 10/06/2013 9:[address] questions documented in this encounter Plan of Treatment Upcoming Encounters Date Type Specialty Care Team Description 11/24/2021 Office Visit Neurology Gregg Lacy MD [place], [place] [address] (Wo rk) 04/06/2022 Appointment Radiology 04/06/2022 Office Visit Orthopaedics Wally Rouse MD [facility] ORTHOPAEDIC SURG [place], [place] [address] (Wo rk) documented as of this encounter Visit Diagnoses Not on filedocumented in this encounter Care Teams Watch Crystal Edge Grinder Relationship Specialty Start Date End Date Dallas Rizvi MD PCP - General 02/01/10 02/19/18 [address] [place] [address] documented as of this encounter
--- OUTSIDE RECORDS SUMMARY | 2021-10-13 15:54 | XMS_ITS | Encounter Summary ---
:1950 Author Organization [facility] [place] [address] Care Team Providers Name Role Phone Dallas Rizvi MD Primary Care Provider Encounter Details Date Type Department Care Team Description 2012 Telephone [place] [facility] [place], [facility] [place] [address] [facility] [phone] PULMONARY MEDICI [place], [place] [address] (Wo rk) Social History Tobacco Use Types Packs/Day Years Used Date Former Smoker Sex Assigned at Date Recorded Female 01/18/2021 7:28 AM EST documented as of this encounter Miscellaneous Notes Telephone Encounter - Dary Shannon - 2012 8:09 AM EDT PLEASE SIGN NEW PATIENT ORDERS documented in this encounter Plan of Treatment Upcoming Encounters Date Type Specialty Care Team Description 11/24/2021 Office Visit Neurology Gregg Lacy MD [place], [place] [address] (Wo rk) 04/06/2022 Appointment Radiology 04/06/2022 Office Visit Orthopaedics Wally Rouse MD [facility] ORTHOP[facility]EDIC SURG [place], [place] [address] (Wo rk) documented as of this encounter Results PFT Screen (DLCO,oximetry,spirometry) (01/08/2012 [...] Lung nodule - Primary Solitary pulmonary nodule Pulmonary nodule - Primary Solitary pulmonary nodule documented in this encounter Care Teams Fender Mechanic Relationship Specialty Start Date End Date Dallas Rizvi MD PCP - General 02/01/10 02/19/18 [address] [place] [address] documented as of this encounter
--- OUTSIDE RECORDS SUMMARY | 2021-10-13 15:54 | XMS_ITS | Encounter Summary ---
:1950 Author Organization [facility] [place] [address] Care Team Providers Name Role Phone Dallas Rizvi MD Primary Care Provider Encounter Details Date Type Department Care Team Description 03/06/2014 Anesthesia Event Main Operating Room Donte Ortiz MD [facility] [place] [address] [facility] Lore Vu MD [facility] [place] [address] [place] [address] Anesthesia Record Procedure Summary Procedure Name Responsible Anesthesia Start Anesthesia Stop Anesthesiologist Time Time PANNICULECTOMY (N/A Donte Main MD 03/06/14 0945 03/06 1158 Abdomen) Events Date Time Event Comment 03/06/2014 0824 0945 AN Verify 0945 Start 0947 An Start Data 0955 An Induction 0957 An Intubation 0958 Anesthesia Ready 1015 Procedure Start 1145 Procedure Stop 1149 Extubation/LMA Out 1152 an stop data 1158 Stop Name Total Midazolam 2 mg fentaNYL 100 mcg IV Lidocaine 100 mg Propofol 400 mg Rocuronium 60 mg PHENYLephrine 80 mcg ePHEDrine 50 mg Ondansetron 4 mg Dexamethasone 8 mg Neostigmine 2 mg Glycopyrrolate 0.4 mg ceFAZolin 2 g Esmolol 20 mg HYDROmorphone 0.4 mg Lactated Ringers 800 mL Agents Name O2 Air Sevoflurane (et) Blood No blood administrations on file. Lines, Drains, and Airways Type Details Placement Removal Incision 03/06/14; abdomen; 03/06/14 0000 by 09/21/20 111 9 by 09/21/20; 1119 Any Sierra, YUMIKO Lyle, Skip Davis, RN Lumbar/CSF Drain 03/06/14; Left; abdomen; 03/06/14 0000 by 09/21 1119 by 19 macedonian bart drains; Deborah Barker, YUMIKO Szymanski is, Enid Davis, RN 09/21/20; 1119 Lumbar/CSF Drain 03/06/14; Right; abdomen; 03/06/14 0000 by 09/09 05/30 1119 by (19 macedonian bart drain); Elvia Johnson RN Cur tis, Enid Davis, RN (inserted in OR); 09/21/20; 1119 PIV 03/06/14; 0902; metacarpal 03/06/14 0902 by 02/10 09/22 1131 by vein right (top of hand); Lina Rangel, Yani Ness [id number] catheter system; 18 gauge, 1 in length; distraction, intradermal injection; metacarpal vein (top of hand), right; 03/07/14; 1131 ETT Mask Ventilation: Easy 03/06/14 0957 by 03/06/14 1149 by (1); ETT Type: Cuffed; ETT Lore Vu MD Franko, Denise M, MD Size: 7.5 mm; Mac Blade: 3; Notes: Asleep, Cricoid Pressure, Stylette; Attempts: 1; Laryngoscopy Grade: 1; ETT Placement Verified By: Auscultation, Capnometry, Visual; Secured at Teeth: 23 cm; Inserted by: Mono Vu PIV metacarpal vein left (top 03/06/14 1022 by 03/07 1131 by of hand); [id number] Yani Rosenberg catheter system; 16 gauge; D Horace; 0; 03/07/14; 1131 documented in this encounter Social History Tobacco Use Types Packs/Day Years Used Date Former Smoker Cigarettes 1 10 Quit: 05/10/18 78 Smokeless Tobacco: Never Used Alcohol Use Standard Drinks/Week Comments No 0 (1 standard drink = 0.6 oz pure alcoho l) Sex Assigned at Date Recorded Female 01/18/2021 7:28 AM EST documented as of this encounter OR Notes Anesthesia Postprocedure Evaluation - Lore Vu - 03/06/2014 2:16 PM EST Patient: Kiya Cummings Procedure(s) Performed: Procedure(s): ABDOMINOPLASTY MODIFIER PANNICULECTOMY Actual Anesthetic: general Patient location: PACU Post-op pain: Adequate analgesia Post-op nausea: no nausea or vomiting Last Vitals: Filed Vitals: 03/06/14 1400 BP: 103/49 Pulse: 79 Temp: 36.1 ??C (97 ??F) Resp: 14 Post-op cardiovascular and respiratory status: is stable Level of consciousness: awake, alert and oriented Complications: no apparent complications and tolerated the procedure well Fluid Status: normal Pt with ome anxiety in PACU, responded well to IV ativan. Pain well controlled. Anesthesia Preprocedure Evaluation - Donte Main MD - 03/05/2014 10:42 AM EST Images from the original note were not included. Pre-Anesthesia Evaluation for: Kiya Cummings a 64 y.o. female. Procedure(s): ABDOMINOPLASTY MODIFIER PANNICULECTOMY Patient Active Problem List Diagnosis ??? Rectus diastasis ??? Abdominal pannus Past Medical History Diagnosis Date ??? Allergy 1979 sulfur and 2013 sipro ??? Musculoskeletal disease 1999 arthritis in hands and toes ??? Asthma 1977 asthma ??? Circulatory disease 1984 varicose veins stripped ??? Diverticulitis 2004 diverticulitis GERD ??? ENT disease 2009 tinnitus ??? Eye problems 2011 cataracts ??? Urinary disorder 1985 bladder infections ??? Mental or behavioral problem 1999 depression ??? Hormone disorder underactive thyroid Past Surgical History Procedure Laterality Date ??? Musculoskeletal surgery unlisted both shouloders rotater cuff ??? Genital surg proc, female unlisted 1994 1981 prolapse hysterectomy ??? Vascular surgery 1989 varicose veins both legs History Substance Use Topics ??? Smoking status: Former Smoker -- 1.00 packs/day for 10 years Types: Cigarettes Quit date: 05/10/1977 ??? Smokeless tobacco: Never Used ??? Alcohol Use: No History Drug Use No Allergies Allergen Reactions ??? Sulfa (Sulfonamide Antibiotics) CIS - Hives Medications: MAR and/or home medications have been reviewed. Physical Exam: There were no vitals filed for this visit. Body mass index is 34.65 kg/(m^2). Height: 164.7 cm (5' 4.84) (per H+P 02/19/14) Weight - Scale: 94 kg (207 lb 3.7 oz) (per 02/19/14 H+P) Airway Assessment: Mallampati: II TM distance: >3 FB Neck ROM: full Cardiovascular Assessment: Rhythm: regular Rate: normal Pulmonary Assessment: Dental Assessment: - normal exam Misc Assessment: IV access: Peripheral line Anesthesia Plan: ASA 2 general, with a(n) intravenous induction 64 yo female 94 kg presents for panniculectomy. PMH significant for asthma, hypothyroid, depression. Plan GETA with standard ASA monitors and adequate IV access. Region - Other Informed Consent: Anesthetic plan and risks discussed with patient and spouse. Use of blood products discussed with patient and spouse whom consented to blood products. Plan discussed with resident. [facility]. Assessment: documented in this encounter Plan of Treatment Upcoming Encounters Date Type Specialty Care Team Description 11/24/2021 Office Visit Neurology Gregg Lacy MD [place], [place] [address] (Tulio raymond) 04/06/2022 Appointment Radiology 04/06/2022 Office Visit Orthopaedics Wally Rouse MD [facility] ORTHOPAEDIC SURG [place], [place] [address] (Wo rk) documented as of this encounter Visit Diagnoses Not on filedocumented in this encounter Administered Medications Inactive Administered Medications - up to 3 most recent administrations Medication Order MAR Action Action Date Dose Rate Site ceFAZolin (ANCEF) 1g in dextrose 5% Given 03/06/2014 10:00 AM ES T 2 g 50mL PRN, Starting on Sun03/06/14 at 1000, Until Sun03/06/14 at 1206, Administer over 30 Minutes, Anesthesia Intra-op dexamethasone (DECADRON) injection Given 03/06/2014 9:55 AM EST 8 mg PRN, Starting on Sun03/06/14 at 0955, Until Sun03/06/14 at 1206, Anesthesia Intra-op, Routine ePHEDrine Sulfate in sodium chloride 0.9% (PF) Given 05/07/2013 11:18 AM EST 5 mg 50 mg/10 mL (5 mg/mL) injection Syrg PRN, Starting on Sun03/06/14 at 1035, Until Sun03/06/14 at 1206, Anesthesia Intra-op Given 03/06/2014 11:07 AM EST 15 mg Given 03/06/2014 10:46 AM EST 10 mg esmolol (BREVIBLOC) injection Given 03/06/2014 10:24 AM EST 20 mg PRN, Starting on Sun03/06/14 at 1024, Until Sun03/06/14 at 1206, Anesthesia Intra-op, Routine fentaNYL 50mcg/mL injection Given 03/06/2014 10:16 AM EST 50 mcg PRN, Starting on Sun03/06/14 at 0955, Until Sun03/06/14 at 1206, Pain, Anesthesia Intra-op, Routine Given 03/06/2014 9:55 AM EST 50 mcg glycopyrrolate (ROBINUL) injection Given 03/06/2014 11:25 AM EST 0.4 mg PRN, Starting on Sun03/06/14 at 1125, Until Sun03/06/14 at 1206, Anesthesia Intra-op, Routine HYDROmorphone (DILAUDID) injection Given 03/06/2014 11:30 AM EST 0.2 mg PRN, Starting on Sun03/06/14 at 1127, Until Sun03/06/14 at 1206, Pain, Anesthesia Intra-op, Routine Given 03/06/2014 11:27 AM EST 0.2 mg lactated ringers infusion New Bag 03/06/2014 9:45 AM EST CONTINUOUS PRN, Starting on Sun03/06/14 at 0945, Until Sun03/06/14 at 1206, Anesthesia Intra-op lidocaine (PF) (XYLOCAINE) 100 mg/5 mL (2 %) Given 11:42 AM EST 100 mg injection PRN, Starting on Sun03/06/14 at 1142, Until Sun03/06/14 at 1206, Anesthesia Intra-op, Routine midazolam (PF) (VERSED) 1 mg/mL injectio n Given 03/06/2014 9:45 AM EST 2 mg PRN, Starting on Sun03/06/14 at 0945, Until Sun03/06/14 at 1206, Sleep, Anesthesia Intra-op, Routine neostigmine (PROSTIGMINE) injection Given 03/06/2014 11:25 AM EST 2 mg PRN, Starting on Sun03/06/14 at 1125, Until Sun03/06/14 at 1206, Anesthesia Intra-op, Routine ondansetron (ZOFRAN) injection Given 03/06/2014 11:25 AM EST 4 mg PRN, Starting on Sun03/06/14 at 1125, Until Sun03/06/14 at 1206, Nausea, Anesthesia Intra-op, Routine PHENYLephrine HCl in NS (PF) Given 03/06/2014 11:18 AM EST 80 mc g (HUGO-SYNEPHRINE) 0.8 mg/10 mL (80 mcg/mL) injection Syrg PRN, Starting on Sun03/06/14 at 1118, Until Sun03/06/14 at 1206, Anesthesia Intra-op, Routine propofol (DIPRIVAN) 10 mg/mL bolus injection Given 11:42 AM EST 50 mg (Anesthesia) PRN, Starting on Sun03/06/14 at 0955, Until Sun03/06/14 at 1206, Anesthesia Intra-op Given 03/06/2014 11:32 AM EST 50 mg Given 03/06/2014 11:31 AM EST 50 mg rocuronium (ZEMURON) injection Given 03/06/2014 10:53 AM EST 10 mg PRN, Starting on 12/26/14 at 0955, Until Sun03/06/14 at 1206, Anesthesia Intra-op, Routine Given 03/06/2014 9:55 AM EST 50 mg documented in this encounter Care Teams Valve Inspector Relationship Specialty Start Date End Date Dallas Rizvi MD PCP - General 02/01/10 02/19/18 [address] [place] [address] documented as of this encounter
--- OUTSIDE RECORDS SUMMARY | 2021-10-13 15:54 | XMS_ITS | Encounter Summary ---
:1950 Author Organization [facility] [place] [address] Care Team Providers Name Role Phone Dallas Rizvi MD Primary Care Provider Encounter Details Date Type Department Care Team Description 07/20/2011 Orders Only [place] [facility] [place] Andree Pittman, [facility] [place] [address] [facility] [phone] PULMONARY MEDICI [place], [place] [address] (Wo rk) Social History Tobacco [...] Visit Orthopaedics Wally Rouse MD [facility] ORTHOPAEDIC SURG [place], [place] [address] (Wo rk) documented as of this encounter Procedures Procedure Name Priority Date/Time Associated Diagnosis Comme nts FILM LIBRARY Routine 07/20/2011 2:10 PM Results f or this STORAGE ONLY CT EDT procedure ar e in CHEST the results section. documented in this encounter Results FILM LIBRARY- STORAGE ONLY CT CHEST (07/20/2011 2:10 PM EDT) Anatomical Region Laterality Modality Chest Other Specimen (Source) Anatomical Collection Method Collection Time Re ceived Time Location / / Volume Laterality 07/20/2011 2:10 PM EDT Narrative 04/29/2013 7:24 PM EST This is a non-reportable exam. Procedure Note MarionDelroy - 04/29/2013Formatting of t his note might be different from the original. This is a non-reportable exam. Andree Pittman MD IMG FILM LIBRARY ORDERABLES documented in this encounter Visit Diagnoses Not on filedocumented in this encounter Care Teams Clinical Informaticist Relationship Specialty Start Date End Date Dallas Rizvi MD PCP - General 02/01/10 02/19/18 [address] [place] [address] documented as of this encounter
--- OUTSIDE RECORDS SUMMARY | 2021-10-13 15:54 | XMS_ITS | Encounter Summary ---
:1950 Author Organization [facility] [place] [address] Care Team Providers Name Role Phone Dallas Rizvi MD Primary Care Provider Encounter Details Date Type Department Care Team Description 10/07/[address] Scan at [facility], [place]V Rectus diastasis [facility] Marcos Vance MD [facility] [place] [address] [place] [address] Social History Tobacco Use Types Packs/Day Years [...] DESIPRAMINE HCL 0 08/15/2006 7 (DESIPRAMINE ORAL) meloxicam (MOBIC) 15 mg 0 08/15/2006 0 11/27/2013 tablet fexofenadine (MARY JO) 180 0 7 06/25/2018 mg tablet escitalopram (LEXAPRO) 20 0 08/15/2006 02/15/2017 mg tablet levothyroxine (LEVOXYL) 0 08/15/2006 0 06/25/2018 100 mcg tablet Calcium Carbonate-Mag 0 08/15/2006 Hydroxid (MYLANTA ULTRA) 700-300 mg Chew documented as of this encounter Plan of Treatment Upcoming Encounters Date Type Specialty Care Team Description 11/24/2021 Office Visit Neurology Gregg Lacy MD [place], [place] [address] (Wo rk) 04/06/2022 Appointment Radiology 04/06/2022 Office Visit Orthopaedics Wally Rouse MD [facility] ORTHOPAEDIC SURG [place], [place] [address] (Wo rk) documented as of this encounter Procedures Procedure Name Priority Date/Time Associated Diagnosis Comme nts CT ABDOMEN AND Routine 10/07/2013 4:19 PM Rectus diastasis Res ults for this PELVIS WO CONTRAST EDT procedure are in the results section. documented in this encounter Results CT abdomen & pelvis [...] stool. 3. Non-obstructing left renal calculi. Marcos Vance MD IMG CT ORDERABLES documented in this encounter Visit Diagnoses Diagnosis Rectus diastasis Diastasis of muscle documented in this encounter Administered Medications Inactive Administered Medications - up to 3 most recent administrations Medication Order MAR Action Action Date Dose Rate Site iohexol (OMNIPAQUE) 350 mg Given 10/07/2013 2:00 PM EDT 17,500 m g iodine/mL injection 17,500 mg 17,500 mg (50 mL), Oral, ONCE PRN, 1 dose, Starting on Sun10/07/13 at 1620, Until Sun10/07/13 at 1400, Per Protocol, Routine documented in this encounter Care Teams Piercing Mill Operator Relationship Specialty Start Date End Date Dallas Rizvi MD PCP - General 02/01/10 02/19/18 [address] [place] [address] documented as of this encounter
--- OUTSIDE RECORDS SUMMARY | 2021-10-13 15:54 | XMS_ITS | Encounter Summary ---
:1950 Author Organization [facility] [place] [address] Care Team Providers Name Role Phone Nelly Rizvi MD Primary Care Provider Encounter Details Date Type Department Care Team Description 03/06/2014 [facility]; 03/07/2014 Jessica Lu MD Abdominal [facility] [address] [place] [id number] [phone] Social History Tobacco Use Types Packs/Day Years [...] Sign Reading Time Taken Comments Blood Pressure 105/77 03/07/2014 9:35 AM EST Pulse 77 03/07/2014 9:35 AM EST Temperature 37.1 ??C (98.8 ??F) 03/07/2014 9:35 AM EST Respiratory Rate 16 03/07/2014 9:35 AM EST Oxygen Saturation 91% 03/07/2014 9:35 AM EST Inhaled Oxygen Concentration - - [...] tolerateregular diet. Her pain was controlled with transistor tester and transitioned to oxycodone. She was able [...] from each drain. Call the clinic at [phone] and schedule an appointment with the nurses [...] Sunday 8 am to 5 pm Call [phone] On weekends or after hours: Call [phone] and ask the tractor crane operator to page the Plastic Surgery Resident long chain quiller tender. Prescription Line: Call the line at [phone] from 8am-4pm Sunday through Sunday. Narcotic renewals will not be honored after hours or on weekends. Make your request a few days before you run out as it make take up to24 hours for physician approval. Follow-up plan: Future Appointments and Orders Future Appointments Provider Department Dept Phone 03/18/2014 10:30 AM Ekaterina Rivera APRN Plastic Surgery [phone] Future Orders Complete By Expires Referral to Home Health - at DISCHARGE [[id number] CPT(R)] As directed Process Instructions: Scheduling Instructions: Comments: DOCUMENTATION FOR VNA SERVICES PATIENT'S LOCATION: Kiya Rowan [address] [facility] [address] (home) Senior Ui Designer's Name: Self In discussion with the attending physician, it is certified that this patient is under their care and that they, or a Nurse Practitioner,Clinical Nurse specialist or Physician Senior Construction Estimator who is working directly with them, had [...] and recording outputs HOME HEALTH CARE AGENCY: [facility], PHONE: [phone] FAX: [phone] Start of care: Friday 03/09 Please note that any additional orders needs or changes will need to be obtained from this patient'sPCP: NELLY RIZVI MD [address] / [facility] [address] All VNA agencies which cover the area of patient's residence have been reviewed, either verbally or in writing, and patient/family have chosen the home health care agency noted. Questions: Agency name and contact information: [facility] Patient location post discharge: Home What services are requested: Registered Nurse Start date: 03/09/2014 Responsible MD post discharge contact info: PCP/[facility] Plastics Service documented in this encounter Discharge Instructions Patient InstructionsWuAnival MD - 03/07/2014 7:55 AM EST During [...] from each drain. Call the clinic at [phone] and schedule an appointment with the nurses [...] Sunday 8 am to 5 pm Call [phone] On weekends or after hours: Call [phone] and ask the tractor crane operator to page the Plastic Surgery Resident long chain quiller tender. Prescription Line: Call the line at [phone] from 8am-4pm Sunday through Sunday. Narcotic renewals will not be honored after hours or on weekends. Make your request a few days before you run out as it make take up to24 hours for physician approval. AttachmentsThe following attachments cannot be sent through Care Everywhere. SURGICAL DRAIN CARE ([place])documented in this encounter Medications at Time of [...] Surgery Progress Note S: pain controlled with transistor tester Tolerated water, no nausea/vomiting No chest pain or dyspnea Ambulated already O: Blood pressure 144/68, pulse 78, temperature 36.3 ??C (97.3 ??F), temperature source Oral, resp. rate 15, height 165.1 cm (5' 5), weight 92.987 kg (205 lb), SpO2 98 %. Gen: NAD Resp: unlabored CV: RRR Abd: soft, appropriately tender, dressings intact A/P: recurrent intertriginous rashes s/p panniculectomy - regular diet - transistor tester for pain control - keep bed flexed [...] applied. Continue to monitor & transfer to soon. 1335-Pt continues to rest comfortably. Sats [...] FORWARD: Discharge summary faxed and routed to [facility]. Also gave pt copy with instructions [...] last 30 days -- Community Agency Name(s) [facility] -- Equipment Needed After Discharge [...] in last 30 days Community Agency Name(s) [facility] Discharge Planning Comments Per MD patient requested VNA services at time of discharge POLYSOMNOGRAPHY TECH D/c'd, po oxycodone given. Will initiate KENNEDI drain teaching, O2 presently off and given IS to work with. Initial Assessments - Brie Pérez RN - 03/07/2014 8:12 AM EST Office of Care Management/Clinical Information Delivery Analyst (CRC)/Initial Assessment CRC Brie Pérez RN (pager [phone]) Patient: Kiya Rowan : 1950 (64 y.o.) [facility]: [facility] [address]* LOS: 1 day Care reviewed with Dr. Anival Wright. Reviewed record. Patient Active Problem List Diagnosis Code ??? Rectus diastasis 728.84 ??? Abdominal pannus 278.1 ?? Social/Family situation: History Social History Narrative Extended Emergency Contact Information Primary Emergency Contact: Nabil Rowan Jr Relation: Spouse Secondary Emergency Contact: Vickie Lomeli Relation: Sibling ?? Code status: Full Code ?? Insurance coverage: [employer] ?? Admission status: 03/06/14 OBSVO Order to Admit is appropriate and signed by RYAN Hodge. ?? Anticipated barriers to discharge: None ?? Pipe Jeeper referral indicated: No ?? Anticipated discharge date: Today, Wednesday 03/07 ?? Anticipated discharge place: Home ?? Home health agency: [facility] RN orders pended. ?? PCP: NELLY RIZVI MD, Future Appointments Date Time Provider Department Center 03/18/2014 10:30 AM Ekaterina Rivera APRN [facility] Plan: Care Management will continue to monitor progress, follow for continuity of care, and assist with discharge planning. Plan of Care - Anum Lou, YUMIKO - 03/07/2014 2:10 AM EST Problem: General [...] Her pain has been controlled with dilaudid POLYSOMNOGRAPHY TECH. Pt. Has had stable vitals.pt.'s jps have [...] Wright MD - 03/06/2014 4:28 PM EST [facility] Operative Note Patient Name: Kiya Rowan : [id number] MR#: [id number] Case Date: 03/06/2014 Surgeon: Surgeon(s) and Role: [...] Operative Note Patient Name: Kiya Rowan : [id number] MR#: [id number] Case Date: 03/06/2014 Surgeon: Surgeon(s) and Role: [...] Office Visit Neurology Gregg Lacy MD [place], [place] [address] (Tulio raymond) 04/06/2022 Appointment Radiology 04/06/2022 Office Visit Orthopaedics Wally Rouse MD [facility] ORTHOPAEDIC SURG [place], [place] [address] (Tulio raymond) documented as of [...] 03/06/2014 AM EST 11:21 AM EST Narrative [facility] - 03/06/2014 11:21 AM EST Specimen requisition ordered. ??Separate Pathology report to follow Marcos Godinez MD PATHOLOGY/CYTOLOGY ORDERABLE S Performing Organization Address City/State/ZIP [place] [address] [facility] Pathology Report (03/06/2014 11:20 AM EST) [facility] gist Method Time Signature Surgical CERNER Pathology ? [facility] Report ? Provider: ?? MARCOS GODINEZ ? Pt. Name: ?? KIYA ROWAN ? Acc #: ?[id number] ?Pt. MRN: ?[id number] ? Col Date: ?? 03/06/2014 ?/Sex: ?1 [...] Organization Address City/State/[place] [address] [facility] (03/06/2014) P athologist Signature POC Hemoglobin 15.0 g/dL Specimen (Source) Anatomical Location Collection Method / Collectio n Time Received Time / Laterality Volume 03/06/2014 Marcos Godinez MD POINT OF CARE TEST ORDERABLE S documented in this encounter Visit Diagnoses Diagnosis Rectus diastasis Diastasis of muscle Abdominal pannus Localized adiposity documented in this encounter Administered Medications Inactive [...] 03/06/2014 12:17 PM EST 30 mg mg/mL POLYSOMNOGRAPHY TECH 30 mL Intravenous, POLYSOMNOGRAPHY TECH ONLY, Starting on Sun03/06/14 at 1230, Until Sun03/07/14 at 0753 lactated ringers infusion 1,000 New [...] 03/07/2014 acetaminophen (TYLENOL) tablet 1,000 mg (COMPLETED) 09 (Given - Provider: Lina Rangel RN) 1,000 mg, Oral, ONCE, 1 dose, Sun at 0915, Maximum dose of acetaminophen is 4000 mg from all sources in 24 hours., Day of Surgery (Day of Procedure), Routine buPROPion (WELLBUTRIN XL) XL tablet 150 mg (CANCELED) 647 (Given - Provider: Anum Lou RN) 150 [...] mg (CANCELED) 2058 (Given - Provider: Anum Lou RN) 0950 (Given - Provider: Estefani Osborne RN) 100 mg, Oral, 2 TIMES DAILY, First dose on Sun03/06/14 at 2100, Until Discontinued, Routine enoxaparin (LOVENOX) injection 40 mg (CANCELED) 1823 (Given - Provider: Estefani Osborne, YUMIKO) 0950 (Given - Provider: Estefani Osborne , YUMIKO) 40 mg, Subcutaneous, DAILY, First dose o n Sun03/06/14 at 1800, Until Discontinued, Routine escitalopram oxalate (LEXAPRO) tablet 20 mg (CANCELED) 2057 (Given - Provider: Anum Lou, YUMIKO) 0950 [...] tablet (CANCELED) 1823 (Given - Provider: Estefani Osborne, YUMIKO) 0950 (Given - Provider: Estefani Osborne , YUMIKO) 1 tablet, Oral, DAILY, First dose on Sun03/06/14 at 1700, Until Discontinued, Routine levothyroxine (SYNTHROID) tablet 100 mcg (CANCELED) 604 (Given - Provider: Anum Lou RN) 100 mcg, Oral, EVERY MORNING, First dose on Sun03/07/14 at 0600, Until Discontinued, Routine sodium chloride 0.9 % flush 5 mL (CANCELED) 2100 (Given - Provider: Anum Lou, YUMIKO) 0950 (Given - Provider: Estefani Osborne , YUMIKO) 5 mL, Intravenous, 2 TIMES DAILY, First dose on Sun03/06/14 at 2100, Until Discontinued, Routine Continuous Medication Order 03/05/2014 03/06/2014 03/07/2014 HYDROmorphone (DILAUDID) 1 mg/mL POLYSOMNOGRAPHY TECH 30 mL (CANCELED) 1217 (New Syringe/Cartridge - Provider: Elvia Johnson RN) Intravenous, POLYSOMNOGRAPHY TECH ONLY, Starting 02/10 at 1230, Until 03/07/14 at 0753 lactated ringers infusion 1,000 mL (CANCELED) 0906 (New Bag - Provider: Lina Rangel, YUMIKO)0911 (New Bag - Provider: Lina Rangel, YUMIKO) 1,000 mL, at 100 mL/hr, Intravenous, CON TINUOUS, Starting Sun03/06/14 at 0915, Until Sun03/06/14 at 1437, Day of Surgery (Day of Procedure) lactated ringers infusion 1,000 mL (CANCELED) 1220 (New Bag - Provider: Elvia Johnson RN)2109 (New Bag - Provider: Anum Lou, YUMIKO) 0616 (New Bag - Provider: Anum Lou RN) 1,000 mL, at 100 mL/hr, Intravenous, [...] (C ANCELED) 1210 (Given - Provider: Elvia Johnson RN)1219 (Given - Provider: Elvia Johnson RN)1225 (Given - Provider: Elvia Johnson RN)1232 (Given - Provider: Elvia Johnson, YUMIKO)1242 (Given [...] Routine documented in this encounter Care Teams Drop Forge Hand Relationship Specialty Start Date End Date Nelly Rizvi MD PCP - General 02/01/10 02/19/18 [address] [place] [address] documented as of this encounter
--- OUTSIDE RECORDS SUMMARY | 2021-10-13 15:54 | XMS_ITS | Encounter Summary ---
:1950 Author Organization [facility] [address] Care Team Providers Name Role Phone Dallas Rizvi MD Primary Care Provider Reason for Visit Reason Comments Shortness of Breath Encounter Details Date Type Department Care Team Description 04/19/2012 Office Visit Allergy at [facility], [facility] breath) ( Primary Dx) [place] [id number] Social History Tobacco Use Types Packs/Day Years Used Date Former Smoker Sex Assigned at Date Recorded Female 01/18/2021 7:28 AM EST documented as of this encounter Progress Notes Stacy Nunez LPN - 04/19/2012 10:11 AM EST Nitric Oxide-8ppb documented in this encounter Plan of Treatment Upcoming Encounters Date Type Specialty Care Team Description 11/24/2021 Office Visit Neurology Gregg Lacy MD [place], [place] [address] (Wo rk) 04/06/2022 Appointment Radiology 04/06/2022 Office Visit Orthopaedics Wally Rouse MD [facility] ORTHOPAEDIC SURG [place], [place] [address] (Wo rk) documented as of this encounter Visit Diagnoses Diagnosis SOB (shortness of breath) - Primary Shortness of breath documented in this encounter Care Teams President/Gm Production & Live Experiences Relationship Specialty Start Date End Date Dallas Rizvi MD PCP - General 02/01/10 02/19/18 [address] [place] [address] documented as of this encounter
--- OUTSIDE RECORDS SUMMARY | 2021-10-13 15:54 | XMS_ITS | Encounter Summary ---
:1950 Author Organization [facility] [place] [address] Care Team Providers Name Role Phone Dallas Rizvi MD Primary Care Provider Reason for Visit Reason Comments Follow-up Encounter Details Date Type Department Care Team Description 04/19/2012 Follow-Up Pul[facility] at [facility] Andree Gonzales Pulmonary nodules (Primary D x); [facility] [place] [address] PULMONARY MEDICI [place], [place] [address] (Wo rk) Social History Tobacco Use Types Packs/Day Years Used Date Former Smoker Sex Assigned at Date Recorded Female 01/18/2021 7:28 AM EST documented as of this encounter Last Filed Vital Signs Vital Sign Reading Time Taken Comments Blood Pressure 135/81 04/19/2012 10:39 AM EST Pulse 78 04/19/2012 10:39 AM EST Temperature - - Respiratory Rate - - Oxygen Saturation 96% 04/19/2012 10:39 AM EST Inhaled Oxygen Concentration - - Weight 112.9 kg (249 lb) 04/19/2012 10:39 AM EST Height 165.1 cm (5' 5) 04/19/2012 10:39 AM EST Body Mass Index 41.44 04/19/2012 10:39 AM EST documented in this encounter Progress Notes Andree Gonzales MD - 04/19/2012 11:12 AM EST Kiya Cummings is a 62 y.o.woman who presents for f/u evaluation and management of lung nodules. Kiya reports that she has been doing well since her last visit. She remains on the coumadin and thechest pain has not recurred. She has no respiratory symptoms. No intercurrent hospitalizations, ED visits, antibiotics or steroids for her respiratory symptoms. No fever, chills, rigors or nights sweats. Her activity level and functional status is good. No weight loss. PAST MEDICAL HISTORY: 1. Obstructive sleep apnea [...] 12 years. 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 All others negative. PHYSICAL EXAMINATION: BP 135/81 Pulse 78 Ht 165.1 cm (5' 5) Wt 112.946 kg (249 lb) BMI 41.44 kg/m2 SpO2 96% on RA at rest No clubbing, icterus or cyanosis General appearance: alert and appears stated age Nose: no discharge Lungs: clear to auscultation bilaterally Heart: regular rate and rhythm, S1, S2 normal, no murmur, click, rub or gallop Neurologic: Mental status: Alert, oriented, thought content appropriate Nil edema LABS/IMAGING: December 2011: FVC: 3.31 (101%) FEV1: 2.67 (106%) FEV1/FVC: 81% DLCO: 129% The oxygen saturation on room air at rest is normal. There was no significant desaturation on ambulation on room air. CT CHEST: April 2012: There is a sub 5 mm nodule in the right middle lobe (series 3 image 34). In comparison to the original outside chest CT from 07/20/2011, this nodule has decreased in size. There is an ill-defined nodular opacity in the minor fissure (series 3 image 29) with a plaque-like shape on the coronal image (series 601 image 69). In comparison to the prior CT scans this finding is unchanged and most likelyrepresents a benign intrapleural lymph node. Finally, there is a sub 5 mm nodule in the extreme left lower lobe (series 3 image 48), which has also decreased in size in comparison to the original outside CT scan. The lungs are otherwise clear. No enlarged lymph nodes or other abnormalities are seen in the chest. Below the diaphragm, the previously reported fatty liver cannot be confirmed because of the low dosetechnique. In addition, the previously reported left adrenal nodule is not included on the scan. Impression Small benign nodules in right middle lobe and left lower lobe. Small intrapleural lymph node, unchanged. No significant chest abnormality. ASSESSMENT/RECOMMENDATIONS: This is a 62 year-old woman, with a remote smoking history, who presents for f/u evaluation and management of multiple pulmonary nodules. We reviewed her CT chest today and the radiologist report. This multiple nodules are most likely benign and no additional imaging was suggested at this time. Her asthma seems fairly well controlled on her current regime. Her FENO today is 8 ppb, which suggests that she does not have significant lower airway eosinophilic inflammation. Okay to continue the singulair and as needed albuterol. F/u as needed. ANDREE GONZALES MD documented in this encounter Plan of Treatment Upcoming Encounters Date Type Specialty Care Team Description 11/24/2021 Office Visit Neurology Gregg Lacy MD [place], [place] [address] (Wo rk) 04/06/2022 Appointment Radiology 04/06/2022 Office Visit Orthopaedics Wally Rouse MD [facility] ORTHOPAEDIC SURG [place], [place] [address] (Wo rk) documented as of this encounter Visit Diagnoses Diagnosis Pulmonary nodules - Primary Other nonspecific abnormal finding of gilmer ng field Asthma Unspecified asthma documented in this encounter Care Teams Muck Miner Blasting Relationship Specialty Start Date End Date Dallas Rizvi MD PCP - General 02/01/10 02/19/18 [address] [place] [address] documented as of this encounter
--- OUTSIDE RECORDS SUMMARY | 2021-10-13 15:54 | XMS_ITS | Encounter Summary ---
:1950 Author Organization [facility] [place] [address] Care Team Providers Name Role Phone Dallas Rizvi MD Primary Care Provider Reason for Visit Reason Comments Follow-up panni consult Encounter Details Date Type Department Care Team Description 11/27/2013 Follow-Up Plastic Surgery at [facility] Marcos Godinez MD Abdominal pannus; [facility] [place] [address] PLASTIC SURGERY [phone] [place], [place] [address] (Wo rk) Social History Tobacco [...] Sign Reading Time Taken Comments Blood Pressure 137/72 11/27/2013 11:45 AM EDT Pulse 76 11/27/2013 11:45 AM EDT Temperature - - Respiratory Rate - - Oxygen Saturation - - Inhaled Oxygen Concentration - - Weight 89.6 kg (197 lb 9.6 oz) 11/27/2013 11:45 AM EDT Height 163.2 cm (5' 4.25) 11/27/2013 11:45 AM EDT Body Mass Index 33.65 11/27/2013 11:45 AM EDT documented in this encounter Patient Instructions Patient InstructionsMaddi Carrasquillo CMA - 11/27/2013 12:12 PM EDT Written and verbal preoperative and postoperative instructions were given at this visit. Please review the written information prior to your procedure and contact us with any questions. documented in this encounter Progress Notes Maddi Carrasquillo CMA - 11/27/2013 12:11 PM EDT Pre-Op Teaching for Surgery Surgery: Olimpia Written and verbal pre-operative instructions were given and reviewed with patient: Patient was advised to discontinue use of NSAIDS and aspirin products (unless otherwise advised by patient's PCP/Animal Husbandry Worker for cardiac symptoms), fish oil, Vitamin E and herbal supplements for 14 days prior to surgery, to perform the pre-op scrub, and to coordinate a ride home following surgery. Smoking status and medications were further reviewed to rule out/address current use of Nicotine, Coumadin, Plavix, Estrogen or Tamoxifen. Patient was instructed to call the clinic at with any questions or concerns prior to surgery. Marcos Godinez MD - 11/27/2013 11:51 AM EDT Plastic Surgery Office Note Office Visit Follow Up HPI: Kiya Cummings returns to clinic today in follow up for further discussion for panniculectomy. She reports she has lost more weight and is now at a lower BMI. She is here to discuss the findings of her recent CT scan and plan her surgery. She reports she continues to have rashes and her PCP has placed her on a long stage antibiotic for this. She reports frequent UTI's related to difficulty with hygiene. Exam: BP 137/72 Pulse 76 Ht 163.2 cm (5' 4.25) Wt 89.631 kg (197 lb 9.6 oz) BMI 33.65 kg/m2 Pleasant, cooperative Does not appear to be in distress She was well oriented and asked appropriate questions throughout the visit. HEENT: MMM, normocephalic, sclera: white, no facial abrasions Neuro: Pupils equal, round, and reactive to light, extra ocular muscles in tact, tongue midline Resp: No stridor, no wheezes, regular rate Extrem: no cyanosis/clubbing/or edema, no rashes Muscuskeletal: gross full ROM x 4 extrem, ambulating, no lesions Abd: Large abdominal pannus Stage 3 Panus encompasses the mid thighs She has no prohibitive scars weakness in the umbilical area probable diastasis about 8 cm x 8 cm at the umbilicus and above No active rash or cellulitis. CT scan 10/07/13 Impression 1. There is diastasis of the anterior abdominal wall musculature as well as a more focal fat containing umbilical hernia. 2. The colon is diffusely distended with stool. 3. Non-obstructing left renal calculi. Impression: Kiya Cummings returns to clinic with continues symptoms related to her abdominal pannus. She would be a good candidate for panniculectomy. I advised her that I will discuss her CT results with Dr. Hector in general surgery for her umbilical hernia. I again reviewed the risks of the procedure.She understands and wishes to proceed. Plan; Schedule surgery Surgeon: Duration: 2.5 hours 1 night over night Timeframe: Elective Coordinated with: None Procedure: Panniculectomy CPT: 01235 Surgical site: Abdomen Side: N/a Anesthesia: General Follow up: 7 days PAT: Yes No IOlga, am acting as scribe for Dr Godinez. All work documented was performed by Dr Godinez. ???I performed the above scribed service and agree with the accuracy of the note?? MARCOS GODINEZ MD documented in this encounter Plan of Treatment Upcoming Encounters Date Type Specialty Care Team Description 11/24/2021 Office Visit Neurology Gregg Lacy MD [place] [address] (Wo rk) 04/06/2022 Appointment Radiology 04/06/2022 Office Visit Orthopaedics Wally Rouse MD [facility] [place], [place] [address] (Wo rk) documented as of this encounter Procedures Procedure Name Priority Date/Time Associated Diagnosis Comme nts PANNICULECTOMY Routine 11/27/2013 12:05 PM EDT documented in this encounter Visit Diagnoses Diagnosis Abdominal pannus Localized adiposity Rectus diastasis Diastasis of muscle documented in this encounter Care Teams Heavy Machinery Assembler Relationship Specialty Start Date End Date Dallas Rizvi MD PCP - General 02/01/10 02/19/18 [address] [place] [address] documented as of this encounter
--- OUTSIDE RECORDS SUMMARY | 2021-10-13 15:54 | XMS_ITS | Encounter Summary ---
:1950 Author Organization [facility] [place] [address] Care Team Providers Name Role Phone Dallas Rizvi MD Primary Care Provider Encounter Details Date Type Department Care Team Description 04/19/[address] Scan at [facility] [place] [place] [address] Social History Tobacco Use Types Packs/Day [...] 11/24/2021 Office Visit Neurology Gregg Lacy MD [place], [place] [address] (Wo rk) 04/06/2022 Appointment Radiology 04/06/2022 Office Visit Orthopaedics Wally Rouse MD [facility] ORTHOP[facility] SURG [place], [place] [address] (Wo rk) documented as of this encounter Procedures Procedure Name Priority Date/Time Associated Diagnosis Comme nts CT CHEST WO Routine 04/19/2012 9:56 AM Asthma Results f or this CONTRAST (GENERIC) EST procedure are in the results section. documented in this encounter Results CT chest WO contrast [...] unchanged . No significant chest abnormality. Andree Pittman MD IMG CT ORDERABLES documented in this encounter Visit Diagnoses Diagnosis Asthma Unspecified asthma documented in this encounter Care Teams Leather Scrubber Relationship Specialty Start Date End Date Dallas Rizvi MD PCP - General 02/01/10 02/19/18 [address] [place] [address] documented as of this encounter
--- OUTSIDE RECORDS SUMMARY | 2021-10-13 16:01 | XMS_ITS | CCD ---
:1950 Author Care Team Providers Name Role Phone ROSETTA TY Attending Physician Unavailable Vital Signs Unknown or Not Available. Allergies Allergy Code Allergy Type Reaction Status MIRAPEX 468022 Drug allergy Hives Active SULFA (sulfonamide) 0 Drug allergy Active CIPRO 20340812 Drug allergy Hives Active Procedures Unknown or Not Available. History of Immunizations Unknown or Not Available. Problems Problem Code Start Date Resolved Date Status Fracture of left elbow, [id number] Active initial encounter for closed fracture Hypothyroidism 63115898 02/17/2021 Resolved Depression 55412713 02/17/2021 Resolved Sleep apnea 84854311 02/17/2021 Resolved Pulmonary embolism 83522669 02/17/2021 Resolved Results Unknown or Not Available. Active Medications Medication Code Dose Units Frequency Route Modification Start Date/Time Narcan 4MG/0.1ML 7580396 1 SPRAY NEEDED NASAL 09/13 Nasal [place] 10:54 Prescription Detail SPRAY 1 SPRAY NASAL NEEDE D FOR NARCOTIC OVERDOSE Acetaminophen 500MG Oral 744810 2 TABLET THREE TIMES A ORAL 09/13/2020 10:46 Tablet DAY Prescription Detail TAKE 2 TABLET ORAL THREE RAVEN ES A DAY Atorvastatin Calcium 20MG 711077 20 MILLIGRAMS BEDTIME ORAL 09/13/2020 10:45 Oral Tablet Prescription Detail TAKE 20 MILLIGRAMS ORAL BEDT CHIARA buPROPion HCl 150MG Oral 443873 150 MILLIGRAMS DAILY ORAL 09/13/2020 10:45 Tablet, Extended Release Prescription Detail TAKE 150 MILLIGRAMS ORAL JENNY LY buPROPion HCl XL 300MG 305906 300 MILLIGRAMS DAILY ORAL 09/13/2020 10:45 Oral Tablet, Extended Release, 24 HR Prescription Detail TAKE 300 MILLIGRAMS ORAL JENNY LY Escitalopram 20MG Oral 506458 20 MILLIGRAMS DAILY ORAL 09/13/2020 10:45 Tablet Prescription Detail TAKE 20 MILLIGRAMS ORAL ANDI Y Xarelto 10MG Oral Tablet 3332159 10 MILLIGRAMS DAILY ORAL 09/13/2020 10:45 Prescription Detail TAKE 10 MILLIGRAMS ORAL ANDI Y Levothyroxine Sodium 112MCG Oral 100427 100 MCG DAILY ORAL 01/30/2020 10:16 Tablet Prescription Detail TAKE 100 MCG ORAL DAILY Medications Administered During Visit Unknown or Not Available. Encounters Encounter Diagnosis Diagnosis Code Start Date Cough [id number] 01/18/2021 Social History Smoking Status Code Start Date End Date Former smoker 8411913 Patient Decision Aids Unknown or Not Available. Discharge Instructions You were admitted to [facility] on 01/18/2021 14:00 with a principal diagnosis of Cough, unspecified You were discharged from [facility] on 01/18/2021 14:00 Should you have any questions prior to d ischarge, please contact a member of your healthcare team. If you have left the ho spital and have any questions, please contact your primary care physician. Chief Complaint and Reason For Visit Unknown or Not Available. Function Status Unknown or Not Available. Plan of Care Unknown or Not Available. Referral/Transition of Care Unknown or Not Available.
--- OUTSIDE RECORDS SUMMARY | 2021-10-13 16:02 | XMS_ITS | CCD ---
:1950 Author Care Team Providers Name Role Phone ROSETTA TY Attending Physician Unavailable RAJI LOUISE, IFTIKHAR WADDELL, Eulalio (Secondary) Physician Un available Vital Signs Unknown or Not Available. Allergies Allergy Code Allergy Type Reaction Status MIRAPEX 891493 Drug allergy Hives Active SULFA (sulfonamide) 0 Drug allergy Active CIPRO 244006 Drug allergy Hives Active Procedures Unknown or Not Available. History of Immunizations Unknown or Not Available. Problems Problem Code Start Date Resolved Date Status Fracture of left elbow, [id number] Active initial encounter for closed fracture Hypothyroidism 98894884 02/17/2021 Resolved Depression 73021576 02/17/2021 Resolved Sleep apnea 30116895 02/17/2021 Resolved Pulmonary embolism 67370610 02/17/2021 Resolved Results Unknown or Not Available. Active Medications Medication Code Dose Units Frequency Route Modification Start Date/Time Narcan 4MG/0.1ML 7044071 1 SPRAY NEEDED NASAL 09/13 Nasal [place] 10:54 Prescription Detail SPRAY 1 SPRAY NASAL NEEDE D FOR NARCOTIC OVERDOSE Acetaminophen 500MG Oral 356854 2 TABLET THREE TIMES A ORAL 09/13/2020 10:46 Tablet DAY Prescription Detail TAKE 2 TABLET ORAL THREE RAVEN ES A DAY Atorvastatin Calcium 20MG 553234 20 MILLIGRAMS BEDTIME ORAL 09/13/2020 10:45 Oral Tablet Prescription Detail TAKE 20 MILLIGRAMS ORAL BEDT CHIARA buPROPion HCl 150MG Oral 614017 150 MILLIGRAMS DAILY ORAL 09/13/2020 10:45 Tablet, Extended Release Prescription Detail TAKE 150 MILLIGRAMS ORAL JENNY LY buPROPion HCl XL 300MG 079363 300 MILLIGRAMS DAILY ORAL 09/13/2020 10:45 Oral Tablet, Extended Release, 24 HR Prescription Detail TAKE 300 MILLIGRAMS ORAL JENNY LY Escitalopram 20MG Oral 531508 20 MILLIGRAMS DAILY ORAL 09/13/2020 10:45 Tablet Prescription Detail TAKE 20 MILLIGRAMS ORAL ANDI Y Xarelto 10MG Oral Tablet 4575554 10 MILLIGRAMS DAILY ORAL 09/13/2020 10:45 Prescription Detail TAKE 10 MILLIGRAMS ORAL ANDI Y Levothyroxine Sodium 112MCG Oral 945421 100 MCG DAILY ORAL 01/30/2020 10:16 Tablet Prescription Detail TAKE 100 MCG ORAL DAILY Medications Administered During Visit Unknown or Not Available. Encounters Encounter Diagnosis Diagnosis Code Start Date Other displaced fracture of lower end of left humerus, S4249 2D 10/27/2020 subsequent encounter for fracture with routine healing Social History Smoking Status Code Start Date End Date Former smoker 8474865 Patient Decision Aids Unknown or Not Available. Discharge Instructions You were admitted to [facility] on 10/27/2020 12:04 with a principal diagnosis of Oth disp fx of lower end l yannick, subs for fx w carmelina heal You were discharged from [facility] on 12/08/2020 08:22 Should you have any questions prior to [...]
--- OUTSIDE RECORDS SUMMARY | 2021-10-13 16:02 | XMS_ITS | Encounter Summary ---
:1950 Author Organization [facility] Address [address] [place] [address] Care Team Providers Name Role Phone Dallas Rizvi MD Primary Care Provider Ekaterina Omer Primary Care Provider Encounter Details Date Type Department Care Team Description 07/28/2020 Lab Requisition [facility] Outr Resulting Lab, Pathology & Laboratory Provider [facility] [address], [place] [id number] Social History Tobacco Use Types Packs/Day Years Used Date Former Smoker Quit: 01/14/19 73 Smokeless Tobacco: Never Used Alcohol Use Standard Drinks/Week Comments No 0 (1 standard drink = 0.6 oz pure alcoho l) Sex Assigned at Date Recorded Not on file documented as of this encounter Functional Status Functional Status Response Date of Assessment Because of a physical, mental, or emotional condition, No 01/14/2019 does this person have difficulty doing errands alone such as visiting a doctor's office or shopping? Cognitive Status Response Date of Assessment Because of a physical, mental, or emotional condition, No 01/14/2019 does this person have serious difficulty concentrating, remembering, or making decisions? documented as of this encounter Plan of Treatment Upcoming Encounters Date Type Specialty Care Team Description 10/19/2021 Office Visit Neurology Edvin Harvey M D [address] [facility] [address] [place] [address] (Wo rk) documented as of this encounter Procedures Procedure Name Priority Date/Time Associated Diagnosis Comme nts COVID-19 TEST [facility] Today 07/27/2020 14:00 LAB PCR EDT COVID-19 TESTING Routine 07/27/2020 14:00 Results for this EDT procedure are i n the results section. documented in this encounter Results COVID-19 TEST [facility] LAB PCR (07/27/2020 14:00 EDT) Specimen Swab - Entire nasopharynx (body structur e) Performing Organization Address City/State/ZIP Code Phon e Number [facility] [address] [place] [address] SERVICES COVID-19 TESTING (07/27/2020 14:00 EDT) COVID-19 rt-PCR Negative Negative [facility] Result Comment: [facility] This test has not been FDA c leared or approved. This test has been authorized by FDA under an EUA for use by authorized laboratories. This test has been authorized only for detection of nucleic acid fro SERVICES m 2019-nCoV, not for any oth er viruses or pathogens. This test is only authorized for the duration of the declaration that circumstances exist justifying the authorization of emergency use of in vitro d iagnostic tests for detectio n and/or diagnosis of 2019-nCoV under section 564(b)(1) of Act, 21 U.S.C ?? 360bbb-3(b) (1), unless the authorization is terminated or revoked sooner. Negative results do not prec lude 2019-nCoV infection and should not be used as the sole basis for treatment or other patient management decisions. Negative results must be combined with clinical observa tions, patient history, and epidemiological informatio n. This test was developed and its performance characteristics determined by [facility]. It has not been cleared or approved by the US Food and Drug Administration. FDA does not require this test to go through premarket FDA review. This t est is used for clinical purposes. It should not be regarded as investigational or for research. This laboratory is certified under the Clinical Laboratory Improvement Amendm ents (CLIA) as qualified to perform high complexity clinical laboratory testing. This test is based on the CD C COVID-19 Emergency Use Authorization (EUA) assay, with minor modification as defined by the FDA Performed on the Ascender Software Flex RT-PCR System. Performing Lab [facility] Lab [facility] SERVICES Specimen Swab Performing Organization Address City/State/ZIP Code Phon e Number [facility] [address] [place] [address] SERVICES documented in this encounter Visit Diagnoses Not on filedocumented in this encounter Care Teams Milled Rubber Tender Relationship Specialty Start Date End Date Dallas Rizvi MD PCP - General 02/21/10 08/30/[address] [place] [address] Ekaterina Omer PCP - General Internal Medicine - 08/31/[address] [place] [place] [address] documented as of this encounter
--- OUTSIDE RECORDS SUMMARY | 2021-10-13 16:02 | XMS_ITS | Encounter Summary ---
:1950 Author Organization [facility] Address [address] [place] [address] Care Team Providers Name Role Phone Dallas Rizvi MD Primary Care Provider Reason for Visit Reason Comments Knee Pain right Consult (Routine) - Authorization Not Required Specialty Diagnoses / Procedures Referred By Contact Refer red To Contact Pain Medicine Diagnoses Right knee pain Wilson Hutchinson MD [facility] [address] [place] [address] [address] [place], [place] [address] [place] [address] Phone: Fax: Referral ID Status Reason Start Expiration Visits Visits Date Date Requested Authorized [id number] Authorization Not 1 1 Required Encounter Details Date Type Department Care Team Description 01/14/2019 Office Visit [facility] Alice Mccrary ry osteoarthritis [facility] [place] of right knee ([facility] [address] [facility] D[facility]) Interventional Pain [address] [place], [place] [address] [place], [place] [phone] Social History Tobacco Use Types Packs/Day Years Used Date Former Smoker Quit: 01/14/19 73 Smokeless Tobacco: Never Used Alcohol Use Standard Drinks/Week Comments No 0 (1 standard drink = 0.6 oz pure alcoho l) Sex Assigned at Date Recorded Not on file documented as of this encounter Last Filed Vital Signs Vital Sign Reading Time Taken Comments Blood Pressure 148/81 01/14/2019 1506 EST Pulse 67 01/14/2019 1506 EST Temperature 36.5 ??C (97.7 ??F) 01/14/2019 1506 EST Respiratory Rate - - Oxygen Saturation - - Inhaled Oxygen Concentration - - Weight - - Height - - Body Mass Index - - documented in this encounter Functional Status Functional Status Response [...] making decisions? documented as of this encounter Progress Notes Alice Mccrary PA-C - 01/14/2019 1530 EST Images from the original note were not included. [facility] OP PAIN CONSULT Patient Name: Kiya Rowan : 1950 Date of Service: 01/14/2019 Chief Complaint Patient presents with ??? Knee Pain right Physician Requesting Consultation:Wilson Hutchinson History of Present Illness/Pain complaint: Ms. Rowan is a 69 y.o. female with a past medical history significant for HTN, osteoarthritis, depression, hx of PE on intermediate card tender anticoagulation ( eliquis) who presents at the request of Wilson Hutchinson in consultation for evaluation and treatment recommendations of her chronic right knee pain. The patient's average pain scale report today on a VAS 1-10: Pain Score (from Vitals) 01/14/2019 Initial score - Final score 5 Location KNEE How long pain has been present: Pain has been present for about 2 years. Her pain is progressively getting worse. Location of Pain: Pain is located on the anterior and medial portion of her right knee. Description of Pain: She describes the pain as a constant aching and throbbing sensation. Activities that worsen pain: walking, standing, going up or down stairs Activities that improves pain: resting Functional limitations: This pain has had a negative impact on the patients quality of life as she has not been able to complete her daily activities. Patient has followed up with Dr. Hutchinson at [facility] who reports that patient is not a surgery candidate due to her weight. He recommended possible RFA. Please see Pain Medicine Center Initial Assessment Questionnaire in scan media for more details. Imaging: Right knee X ray 03/26/2018: Prior injection history: Patient has had prior cortisone injections and Supartz injections at [facility]. Unfortatuely, injections were not helpful to her. Therapeutic measures that have been trialed include: Therapy Comments Injections Physical therapy Land Aqua X- has done aqua therapy in the past Acupuncture TENS Chiropractic therapy Biofeedback Psychotherapy Other Medications that have been trialed include: Medications Effect/Side Effect Anticonvulsants Gabapentin Lyrica Topiramate Antidepressants Amitriptyline Nortriptyline Effexor Cymbalta Muscle Relaxants Cyclobenzaprine Baclofen Robaxin NSAIDs/Tylenol X-tylenol PRN Ibuprofen Relafen Narcotic Methadone Oxycodone Hydromorphone Miscellaneous Allergies Allergen Reactions ??? Sulfa (Sulfonamide Antibiotics) Hives Outpatient Medications Marked as Taking for the 01/14/19 encounter (Office Visit) with Munir Mccrary PA-C Medication Sig Dispense Refill ??? apixaban (ELIQUIS) 5 mg tablet Take 5 mg by mouth daily. ??? escitalopram oxalate (LEXAPRO ORAL) Take by mouth. ??? fexofenadine (MARY JO) 60 mg tablet Take 180 mg by mouth daily. ??? levothyroxine (SYNTHROID) 100 mcg tablet Take 100 mcg by mouth daily. Medications for anticoagulation: Eliquis Reason for taking: hx of PE Past Medical History: Diagnosis Date ??? Environmental allergies No past surgical history on file. Social History Socioeconomic History ??? Marital status: [...] Tobacco Use ??? Smoking status: Former Smoker Last attempt to quit: 01/14/1973 Years since quittin.0 ??? Smokeless tobacco: Never Used Substance and Sexual Activity ??? Alcohol use: No ??? Drug use: Not on file ??? Sexual activity: Not on file Lifestyle ??? Physical activity: Days per week: Not on file Minutes per session: Not on file ??? Stress: Not on file Relationships ??? Social connections: Talks on phone: Not on file Gets together: Not on file Attends yarsani service: Not on file Active member of club or organization: Not on file Attends meetings of clubs or organizations: Not on file Relationship status: Not on file ??? Intimate partner violence: Fear of current or ex partner: Not on file Emotionally abused: Not on file Physically abused: Not on file Forced sexual activity: Not on file Other Topics Concern ??? Not on file Social History Narrative ??? Not on file No family history on file. Review of Systems: A 12 point review of system was performed and reviewed. Pertinent positives have been included in HPI and past medical history. All others negative. Please see scan documents for details. Physical Exam: Vitals: BP (!) 148/81 Pulse 67 Temp 36.5 ??C (97.7 ??F) (Tympanic) General: Patient is alert and oriented x3, no acute distress Skin: clear, warm, dry and intact and no rashes, bruises or petechiae noted Musculoskeletal: Gait: patient ambulates independently, slow antalgic gait no obvious scoliosis or abnormal curvature of the spine Lower Extremity: strength 5/5, sensory bilaterally equal to light touch, patellar and achilles reflex 1/4 bilateral, tenderness around palpation of right anterior knee, no edema or erythema noted Assessment: 1. Primary osteoarthritis of right knee Plan/Recommendations : Ms. Kiya Rowan is a 69 y.o. female with past medical history significant for HTN, osteoarthritis, depression, hx of PE on snf anticoagulation ( eliquis) that presents to the pain clinic for initial consultation and treatment recommendations concerning her chronic right knee pain. Given the patient's symptomatology, physical exam findings and imaging results, we feel that the patient would most likely benefit from the following interventions. All risks, benefits, and alternatives were thoroughly explained to Ms. Kiya Rowan who verbally communicated understanding of the management plan. 1. Interventional: Recommend proceeding with right genicular nerve block and pending relief would proceed forward with COOLIEF RFA of the right knee. Patient is on eliquis therapy and will need to holdthis medication 3 days prior to each procedure. A letter from the prescribing physician is needed for the approval of holding an anticoagulation medication. 2. Medication Recommendations: Continue current medication regimen. 3. Alternative Recommendations: Continue at home exercise program. 4. Follow up plan: Follow up for injection. I spent a total of 45 minutes of face to face conversation and counseling with this patient today and greater than half of that time was spent discussing the clinical, objective findings, coordination of care, and treatment recommendations that were considered and reviewed above. I was directly supervised by , who was in suite and immediately available during the entire patient encounter. MISSY Alegria documented in this encounter Plan of Treatment Upcoming Encounters Date Type Specialty Care Team Description 10/19/2021 Office Visit Neurology Edvin Harvey M D [address] [place] [address] [address] [place] [address] (Wo rk) documented as of this encounter Visit Diagnoses Diagnosis Primary osteoarthritis of right knee - P rimary Primary localized osteoarthrosis, lower leg documented in this encounter Historical Medications This list may reflect changes made after this encounter. Medication Sig Dispensed Refills Start Date End Date apixaban (ELIQUIS) 5 mg Take 5 mg by mouth 0 tablet daily. escitalopram oxalate Take by mouth. 0 (LEXAPRO ORAL) added in this encounter Care Teams Special Officer Relationship Specialty Start Date End Date Dallas Rizvi MD PCP - General 02/21/10 08/30/21 [address] [place] [address] documented as of this encounter
--- OUTSIDE RECORDS SUMMARY | 2021-10-13 16:02 | XMS_ITS | CCD ---
:1950 Author Care Team Providers Name Role Phone DIANN SMART Attending Physician Unavailable DIANN SMART Rounding (Secondary) Physician Unavailab daily Vital Signs Unknown or Not Available. Allergies Allergy Code Allergy Type Reaction Status MIRAPEX 058532 Drug allergy Hives Active SULFA (sulfonamide) 0 Drug allergy Active KEFLEX 20300816 Drug allergy Active PENICILLIN 0 Drug allergy Active CIPRO 20340812 Drug allergy Hives Active Procedures Unknown or Not Available. History of Immunizations Unknown or Not Available. Problems Problem Code Start Date Resolved Date Status Fracture of left elbow, initial [id number] Active encounter for closed fracture Results Unknown or Not Available. Active Medications Medication Code Dose Units Frequency Route Modification Start Date/Time Narcan 4MG/0.1ML 9372378 1 SPRAY NEEDED NASAL 09/13 Nasal [place] 10:54 Prescription Detail SPRAY 1 SPRAY NASAL NEEDE D FOR NARCOTIC OVERDOSE Acetaminophen 500MG Oral 723974 2 TABLET THREE TIMES A ORAL 09/13/2020 10:46 Tablet DAY Prescription Detail TAKE 2 TABLET ORAL THREE RAVEN ES A DAY Atorvastatin Calcium 20MG 811060 20 MILLIGRAMS BEDTIME ORAL 09/13/2020 10:45 Oral Tablet Prescription Detail TAKE 20 MILLIGRAMS ORAL BEDT CHIARA buPROPion HCl 150MG Oral 333047 150 MILLIGRAMS DAILY ORAL 09/13/2020 10:45 Tablet, Extended Release Prescription Detail TAKE 150 MILLIGRAMS ORAL JENNY LY buPROPion HCl XL 300MG 150844 300 MILLIGRAMS DAILY ORAL 09/13/2020 10:45 Oral Tablet, Extended Release, 24 HR Prescription Detail TAKE 300 MILLIGRAMS ORAL JENNY LY Escitalopram 20MG Oral 295750 20 MILLIGRAMS DAILY ORAL 09/13/2020 10:45 Tablet Prescription Detail TAKE 20 MILLIGRAMS ORAL ANDI Y Xarelto 10MG Oral Tablet 5841459 10 MILLIGRAMS DAILY ORAL 09/13/2020 10:45 Prescription Detail TAKE 10 MILLIGRAMS ORAL ANDI Y Levothyroxine Sodium 112MCG Oral 059422 100 MCG DAILY ORAL 01/30/2020 10:16 Tablet Prescription Detail TAKE 100 MCG ORAL DAILY Medications Administered During Visit Unknown or Not Available. Encounters Encounter Diagnosis Diagnosis Code Start Date Idiopathic osteoarthritis [id number] 08/25/2021 Social History Smoking Status Code Start Date End Date Former smoker 5404627 Patient Decision Aids Unknown or Not Available. Discharge Instructions You were admitted to [facility] on 08/25/2021 08:07 with a principal diagnosis of Unilateral primary osteoarthritis of first carpometacarpal joint, right hand You were discharged from [facility] on 08/25/2021 00:00 Should you have any questions prior to d ischarge, please contact a member of your healthcare team. If you have left the spital and have any questions, please contact your primary care physician. Chief Complaint and Reason For Visit Unknown or Not Available. Function Status Unknown or Not Available. Plan of Care Unknown or Not Available. Referral/Transition of Care Unknown or Not Available.
--- OUTSIDE RECORDS SUMMARY | 2021-10-13 16:02 | XMS_ITS | CCD ---
:1950 Author Care Team Providers Name Role Phone VANNESSA SHEETS, ENOCH Can Attending Physician Unavailable EULALIO SHEETS, GUSTAVO Tsai (Secondary) Physician Un available Vital Signs Unknown or Not Available. Allergies Allergy Code Allergy Type Reaction Status MIRAPEX 783336 Drug allergy Hives Active SULFA (sulfonamide) 0 Drug allergy Active CIPRO 939752 Drug allergy Hives Active Procedures Unknown or Not Available. History of Immunizations Unknown or Not Available. Problems Problem Code Start Date Resolved Date Status Fracture of left elbow, [id number] Active initial encounter for closed fracture Diverticulitis of sigmoid 175492405 09/09/2020 Re solved Hypertension 03861468 09/09/2020 Resolved Lower abdominal pain 12567377 09/09/2020 Resolve d Diabetes 2 05516808 09/09/2020 Resolved Hypothyroidism 32212852 02/17/2021 Resolved Depression 89860284 02/17/2021 Resolved Sleep apnea 09334261 02/17/2021 Resolved Pulmonary embolism 73173233 02/17/2021 Resolved Results Unknown or Not Available. Active Medications Medication Code Dose Units Frequency Route Modification Start Date/Time Narcan 4MG/0.1ML 1444467 1 SPRAY NEEDED NASAL 09/13 Nasal [place] 10:54 Prescription Detail SPRAY 1 SPRAY NASAL NEEDE D FOR NARCOTIC OVERDOSE Acetaminophen 500MG Oral 871858 2 TABLET THREE TIMES A ORAL 09/13/2020 10:46 Tablet DAY Prescription Detail TAKE 2 TABLET ORAL THREE RAVEN ES A DAY Atorvastatin Calcium 20MG 167638 20 MILLIGRAMS BEDTIME ORAL 09/13/2020 10:45 Oral Tablet Prescription Detail TAKE 20 MILLIGRAMS ORAL BEDT CHIARA buPROPion HCl 150MG Oral 167308 150 MILLIGRAMS DAILY ORAL 09/13/2020 10:45 Tablet, Extended Release Prescription Detail TAKE 150 MILLIGRAMS ORAL JENNY LY buPROPion HCl XL 300MG 352360 300 MILLIGRAMS DAILY ORAL 09/13/2020 10:45 Oral Tablet, Extended Release, 24 HR Prescription Detail TAKE 300 MILLIGRAMS ORAL JENNY LY Escitalopram 20MG Oral 923030 20 MILLIGRAMS DAILY ORAL 09/13/2020 10:45 Tablet Prescription Detail TAKE 20 MILLIGRAMS ORAL ANDI Y Xarelto 10MG Oral Tablet 4955859 10 MILLIGRAMS DAILY ORAL 09/13/2020 10:45 Prescription Detail TAKE 10 MILLIGRAMS ORAL ANDI Y Levothyroxine Sodium 112MCG Oral 328574 100 MCG DAILY ORAL 01/30/2020 10:16 Tablet Prescription Detail TAKE 100 MCG ORAL DAILY Medications Administered During Visit Unknown or Not Available. Encounters Encounter Diagnosis Diagnosis Code Start Date Unspecified fracture of lower end of left humerus, [id number] 09/09/2020 initial encounter for closed fracture Social History Smoking Status Code Start Date End Date Former smoker [id number] Patient Decision Aids Unknown or Not Available. Discharge Instructions You were admitted to [facility] on 09/09/2020 04:10 with a principal diagnosis of Unspecified fracture of low er end of left humerus, initial encounter for closed fracture You were discharged from [facility] on 09/10/2020 06:38 Should you have any questions prior to d ischarge, please contact a member of your healthcare team. If you have left the spital and have any questions, please contact your primary care physician. Chief Complaint and Reason For Visit Chief Complaint Date of Onset FALL LEFT ELBOW FX Function Status Unknown or Not Available. Plan of Care Unknown or Not Available. Referral/Transition of Care Unknown or Not Available.
--- OUTSIDE RECORDS SUMMARY | 2021-10-13 16:02 | XMS_ITS | Encounter Summary ---
:1950 Author Organization [facility] Address [address] [place] [address] Care Team Providers Name Role Phone Dallas Rizvi MD Primary Care Provider Ekaterina Omer Primary Care Provider Encounter Details Date Type Department Care Team Description 07/20/2019 Lab Requisition [facility] Outr Resulting Lab, Pathology & Laboratory Provider [facility] [address], [place] [id number] Social History Tobacco Use Types Packs/Day Years [...] Team Description 10/19/2021 Office Visit Neurology Edvin aHrvey M D [address] [place] [address] [address] [place] [phone] (Wo rk) documented as of this encounter Procedures Procedure Name Priority Date/Time Associated Diagnosis Comme nts T3, TOTAL Routine 07/18/2019 10:45 EDT Results for this procedure are i n the results section . documented in this encounter Results T3, TOTAL (07/18/2019 10:45 EDT) Pathologist Sig nature T3, Total 122 97 - 169 ng/dL [facility] Specimen Blood - Venous blood (substance) Performing Organization Address City/State/ZIP Code Phon e Number [facility] [address] [place] [address] SERVICES documented in this encounter Visit Diagnoses Not on filedocumented in this encounter Care Teams I[employer] Mainframe Systems Programmer Relationship Specialty Start Date End Date Dallas Rizvi MD PCP - General 02/21/10 08/30/[address] [place], [place] [address] Ekaterina Omer PCP - General Internal Medicine - 08/31/[address] Primary Care [place], [place] [address] documented as of this encounter
--- OUTSIDE RECORDS SUMMARY | 2021-10-13 16:02 | XMS_ITS | Encounter Summary ---
:1950 Author Organization [facility] Address [address] [place] [address] Care Team Providers Name Role Phone Ekaterina Omer Primary Care Provider Reason for Referral Radiology Services (Routine/Next Available) - Authorization Not Required Specialty Diagnoses / Procedures Referred By Contact Refer red To Contact Diagnoses Encounter for screening mammogram for malignant neoplasm of breast Ekaterina Omer [facility] Procedures MA BREAST SCREENING [facility] [address] [facility] [place] [address] Referral ID Status Reason Start Expiration Visits Visits Date Date Requested Authorized [id number] Authorization Not 07/20/2021 1 1 Required Reason for Visit Radiology Services (Routine/Next Available) - Authorization Not Required Specialty Diagnoses / Procedures Referred By Contact Refer red To Contact Diagnoses Encounter for screening mammogram for malignant neoplasm of breast Ekaterina Omer [facility] Procedures MA BREAST SCREENING [facility] [facility] [address] [place] [address] Referral ID Status Reason Start Expiration Visits Visits Date Date Requested Authorized [id number] Authorization Not 07/20/2021 1 1 Required Encounter Details Date Type Department Care Team Description 08/31/2021 Hospital Encounter [facility] - E ncounter for screening [facility] Mammography mammogram for malignant [address] [place] [address] Social History Tobacco Use Types Packs/Day Years [...] making decisions? documented as of this encounter Medications at Time of Discharge Medication Sig Dispensed Refills Start Date End Date albuterol (PROVENTIL HFA, Inhale 2 Puffs as 0 VENTOLIN HFA) 90 directed every 4 hours mcg/Actuation as needed. inhalerIndications: acute Indications: ACUTE asthma attack ASTHMA ATTACK apixaban (ELIQUIS) 5 mg Take 5 mg by mouth 0 tablet daily. buPROPion (WELLBUTRIN SR) Take 100 mg by mouth 0 02/21/2010 100 mg SR tablet daily. ciprofloxacin (CIPRO) 500 Take 1 Tab by mouth 5 Tab 0 1 04/25/2009 mg tablet every 12 hours. desipramine (NORPRAMIN) Take 40 mg by mouth 0 10 mg tabletIndications: daily. Indications: neuropathic pain NEUROPATHIC PAIN duloxetine (CYMBALTA) 30 Take 90 mg by mouth 0 mg capsule daily. escitalopram oxalate Take by mouth. 0 (LEXAPRO ORAL) esomeprazole (NEXIUM) 20 Take 20 mg by mouth 0 mg capsule daily. fexofenadine (MARY JO) 60 Take 180 mg by mouth 0 mg tablet daily. fluticasone-salmeterol Inhale 1 Puff as 0 010 (ADVAIR) 100-50 mcg/dose directed 2 times diskus daily. Indications: inhalerIndications: BRONCHIAL ASTHMA asthma hydrocodone-acetaminophen Take 1 Tab by mouth 0 (LORTAB) 10-500 mg per every 6 hours as tabletIndications: pain needed. Indications: PAIN levothyroxine (SYNTHROID) Take 100 mcg by mouth 0 100 mcg tablet daily. meloxicam (MOBIC) 15 mg Take 15 mg by mouth 0 tablet daily. montelukast (SINGULAIR) Take 10 mg by mouth 0 10 mg tablet daily. documented as of this encounter Discharge Disposition Disposition Code Departure Means Destination Home or Self Care documented in this encounter Plan of Treatment Upcoming Encounters Date Type Specialty Care Team Description 10/19/2021 [facility] [address] [facility] [address] [place] [address] (Wo rk) documented as of this encounter Procedures Procedure Name Priority Date/Time Associated Diagnosis Comme nts MA BREAST SCREENING Routine 08/31/2021 13:14 Encounter for Res ults for this [facility] EDT screening mammogram proced ure are in for malignant the results neoplasm of breast section. documented in this encounter Results MA BREAST SCREENING PAMELA BILATERAL (08/31/2021 13:14 EDT) Anatomical Region Laterality Modality Breast Bilateral Mammography Specimen Impressions [facility] - 08/31/2021 15:15 EDT Negative, no evidence of malignancy. RECOMMENDATION: Routine screening mammog carrie is recommended. OVERALL ASSESSMENT: BI-RADS 1: Negative These results will be communicated to yo ur patient via a lay letter from Radiology. If any additional imaging is needed we will contact your patient directly. Narrative [facility] - 08/31/2021 15:15 EDT MA BREAST SCREENING PAMELA BILATERAL ??08/31/2021 1:10 PM History: screening Comparison: ??Comparison has been made t o previous images. Technique: Routine 3D tomosynthesis with synthesized 2D views with CAD Bilateral Breast Composition: There are scattered areas of fibroglandular density. Bilateral Breast Findings: ??No signific ant masses, calcifications or other abnormalities are seen. Procedure Note Marcos Powell MD - 08/31/2021 MA BREAST SCREENING [facility]AM[facility]A [facility] 2021 1:10 PM History: screening Comparison: Comparison has been made to previous images. Technique: Routine 3D tomosynthesis with synthesized 2D views with CAD Bilateral Breast Composition: There are scattered areas of fibroglandular density. Bilateral Breast Findings: No significan t masses, calcifications or other abnormalities are seen. IMPRESSION Negative, no evidence of malignancy. RECOMMENDATION: Routine screening mammog carrie is recommended. OVERALL ASSESSMENT: BI-RADS 1: Negative These results will be communicated to yo ur patient via a lay letter from Radiology. If any additional imaging is needed we will contact your patient directly. Performing Organization Address City/State/ZIP Code Phon e Number [facility] documented in this encounter Visit Diagnoses Diagnosis Encounter for screening mammogram for ma lignant neoplasm of breast Other screening mammogram documented in this encounter Care Teams Office Technologist Relationship Specialty Start Date End Date Ekaterina Omer PCP - General Internal Medicine - Primary 08/31/21 [address] [place] [address] documented as of this encounter
--- OUTSIDE RECORDS SUMMARY | 2021-10-13 16:02 | XMS_ITS | CCD ---
:1950 Author Care Team Providers Name Role Phone AMOS MADRID Attending Physician Unavailable AMOS MADRID Er Physician 1 RHONDA Lion Registered Nurse DIANN Larsen Registered Nurse Unavailable Vital Signs Vital Sign Value Unit Date/Time Recent/Initial? BMI (Body Mass Index) 43.53 kg/m^2 02/17/2021 17:44 In itial VS Weight Measured 238 lbs 02/17/2021 17:44 Initial VS Height 62 in 02/17/2021 17:44 Initial VS BSA (Body Surface Area) 2.17 m^2 02/17/2021 17:44 Initial VS BP Systolic 92 mmHg 02/17/2021 17:44 Initial VS BP Diastolic 55 mmHg 02/17/2021 17:44 Initial VS Respiratory Rate 16 bpm 02/17/2021 17:44 Initial VS Heart Rate 57 bpm 02/17/2021 17:44 Initial VS O2 % BldC Oximetry 99 % 02/17/2021 17:44 Initi al VS Body Temperature 36 degrees 02/17/2021 17:44 Initial VS BP Systolic 132 mmHg 02/17/2021 20:02 Most Recent VS BP Diastolic 55 mmHg 02/17/2021 20:02 Most Recent VS Respiratory Rate 18 bpm 02/17/2021 20:02 Most Re cent VS Heart Rate 61 bpm 02/17/2021 20:02 Most Recent VS O2 % BldC Oximetry 97 % 02/17/2021 20:02 Most Recent VS Allergies Allergy Code Allergy Type Reaction Status MIRAPEX 614619 Drug allergy Hives Active SULFA (sulfonamide) 0 Drug allergy Active KEFLEX 20300816 Drug allergy Active PENICILLIN 0 Drug allergy Active CIPRO 20340812 Drug allergy Hives Active Procedures Unknown or Not Available. History of Immunizations Unknown or Not Available. Problems Problem Code Start Date Resolved Date Status Fracture of left elbow, [id number] Active initial encounter for closed fracture Hypothyroidism 48015020 02/17/2021 Resolved Depression 44227017 02/17/2021 Resolved Sleep apnea 54414169 02/17/2021 Resolved Pulmonary embolism 87270967 02/17/2021 Resolved Results BNP (PRO-B NATRIURETIC PEPTIDE) - [facility] t Date/Time: 02/17/2021 17:39 Test Name Code Test Result Test Units Test Ref Range NT-proBNP 69204-9 43.0 pg/mL L=0.0 H=125 COMPREHENSIVE METABOLIC PANEL (CMP) - Co llect Date/Time: 02/17/2021 17:39 Test Name Code Test Result Test Units Test Ref Range GLUCOSE 2345-7 95 mg/dL L=70 H=116 BUN 3094-0 29 mg/dL L=6 H=25 CREATININE 2160-0 1.35 mg/dL L=0.51 H=0.95 SODIUM SERUM 2951-2 137 mmol/L L=136 H=145 POTASSIUM SERUM 2823-3 3.9 mmol/L L=3.4 H=5.2 CHLORIDE SERUM 2075-0 100 mmol/L L=96 H=110 CARBON DIOXIDE (CO2) 2028-9 30 mmol/L L=22 H= 34 ANION GAP 99894-6 7.4 mmol/L CALCIUM SERUM 55237-5 9.2 mg/dL L=8.2 H=10.2 BILIRUBIN TOTAL 1975-2 0.4 mg/dL L=0.0 H=1.3 ALK. PHOS. 6768-6 108 U/L L=46 H=116 SGOT (AST) 1920-8 20 U/L L=15 H=37 SGPT (ALT) 1742-6 19 U/L L=12 H=78 TOTAL PROTEIN 2885-2 8.2 gm/dL L=6.0 H=8.0 ALBUMIN 1751-7 3.5 gm/dL L=3.4 H=5.0 AGE 71 years eGFR (non-Afr.Amer.) 25906-9 39 mL/min eGFR (Afr-Prydeinig) 91562-1 47 mL/min TROPONIN-I ADM.* - Collect Date/Time: 17:39 Test Name Code Test Result Test Units Test Ref Range TROPONIN-I 97307-4 <0.017 ng/mL L=0.000 H=0.060 CBC W/ DIFFERENTIAL* - Collect Date/Time : 02/17/2021 17:39 Test Name Code Test Result Test Units Test Ref Range WBC 6690-2 6.89 th/cmm L=5.00 H=10.00 NEUT % 59.7 % L=40.0 H=80.0 LYMPH % 23.1 % L=10.0 H=50.0 MONO % 87001-6 13.2 % L=2.0 H=12.0 EOS % 2.9 % L=0.0 H=8.0 BASO % 0.7 % L=0.0 H=3.0 IG % 2514-8 0.4 % L=0.0 H=1.1 NRBC % 38628-3 0.0 % L=0.0 H=0.0 NEUT abs count 751-8 4.1 th/cmm L=1.6 H=8.4 LYMPH abs count 731-0 1.6 th/cmm L=1.5 H=4.0 MONO abs count 742-7 0.9 th/cmm L=0.2 H=1.0 EOS abs count 711-2 0.2 th/cmm L=0.0 H=0.5 BASO abs count 704-7 0.1 th/cmm L=0.0 H=0.2 IG abs count 63662-1 0.0 th/cmm L=0.0 H=0.1 NRBC abs count 25659-6 0.0 mil/cmm L=0.0 H=0.0 RBC 789-8 3.81 mil/cmm L=3.90 H=5.40 HEMOGLOBIN 718-7 12.3 gm/dL L=12.0 H=16.0 HEMATOCRIT 4544-3 38 % L=37 H=47 MCV 787-2 101 fL L=82 H=92 MCH 785-6 32.3 pg L=27.0 H=31.0 MCHC 786-4 32.1 % L=32.0 H=36.0 RDW-SD 788-0 45.8 fL L=39.0 H=49.0 PLATELET COUNT 777-3 347 th/cmm L=150 H=450 Active Medications Unknown or Not Available. Medications Administered During Visit Unknown or Not Available. Encounters Encounter Diagnosis Diagnosis Code Start Date Other chest pain R0789 02/17/2021 Social History Smoking Status Code Start Date End Date Former smoker 0569994 Patient Decision Aids Unknown or Not Available. Discharge Instructions You were admitted to [facility] on 02/17/2021 17:22 with a principal diagnosis of Other chest pain You had the following tests done: BNP ( PRO-B NATRIURETIC PEPTIDE) CBC W/ DIFFERENTIAL* COMPREHENSIVE METABOLIC PA AMY (CMP) TROPONIN-I ADM.* You were discharged from [facility] on 02/17/2021 20:51 Should you have any questions prior to d ischarge, please contact a member of your healthcare team. If you have left the spital and have any questions, please contact your primary care physician. Chief Complaint and Reason For Visit Chief Complaint Date of Onset SOB CHEST PAIN Function Status Unknown or Not Available. Plan of Care Unknown or Not Available. Referral/Transition of Care Unknown or Not Available.
--- OUTSIDE RECORDS SUMMARY | 2021-10-13 16:02 | XMS_ITS | CCD ---
:1950 Author Care Team Providers Name Role Phone ALEXEY SHEETS, SOFÍA Park Attending Physician Unavailable EULALIO SHEETS, GUSTAVO CARR Er Physician 1 Unavailable BILL BOLIVAR MD Rounding (Secondary) Physician Unavailab le Vital Signs Vital Sign Value Unit Date/Time Recent/Initial? BP Systolic 121 mmHg 09/09/2020 07:32 Initial VS BP Diastolic 57 mmHg 09/09/2020 07:32 Initial VS Respiratory Rate 18 bpm 09/09/2020 07:32 Initial VS Heart Rate 64 bpm 09/09/2020 07:32 Initial VS O2 % BldC Oximetry 94 % 09/09/2020 07:32 Initi al VS Body Temperature 36.7 degrees 09/09/2020 07:32 Initial VS BP Systolic 128 mmHg 09/13/2020 07:05 Most Recent VS BP Diastolic 58 mmHg 09/13/2020 07:05 Most Recent VS Respiratory Rate 20 bpm 09/13/2020 07:05 Most Re cent VS Heart Rate 63 bpm 09/13/2020 07:05 Most Recent VS O2 % BldC Oximetry 92 % 09/13/2020 07:05 Most Recent VS Body Temperature 37 degrees 09/13/2020 07:05 Most Re cent VS Allergies Allergy Code Allergy Type Reaction Status MIRAPEX 326290 Drug allergy Hives Active SULFA (sulfonamide) 0 Drug allergy Active CIPRO 20340812 Drug allergy Hives Active Procedures Unknown or Not Available. History of Immunizations Unknown or Not Available. Problems Problem Code Start Date Resolved Date Status Fracture of left elbow, [id number] Active initial encounter for closed fracture Hypothyroidism 93767934 02/17/2021 Resolved Depression 12546869 02/17/2021 Resolved Sleep apnea 84991696 02/17/2021 Resolved Pulmonary embolism 46821991 02/17/2021 Resolved Results BASIC METABOLIC PANEL (BMP) - Collect Da te/Time: 09/09/2020 09:30 Test Name Code Test Result Test Units Test Ref Range GLUCOSE 2345-7 102 mg/dL L=70 H=116 BUN 3094-0 29 mg/dL L=6 H=25 CREATININE 2160-0 1.26 mg/dL L=0.51 H=0.95 SODIUM SERUM 2951-2 137 mmol/L L=136 H=145 POTASSIUM SERUM 2823-3 4.5 mmol/L L=3.4 H=5.2 CHLORIDE SERUM 2075-0 104 mmol/L L=96 H=110 CARBON DIOXIDE (CO2) 2028-9 27 mmol/L L=22 H= 34 ANION GAP 06656-3 6.3 mmol/L CALCIUM SERUM 90172-0 8.4 mg/dL L=8.2 H=10.2 AGE 70 years eGFR (non-Afr.Amer.) 93353-1 42 mL/min eGFR (Afr-Grenadian) 60328-9 51 mL/min COMPREHENSIVE METABOLIC PANEL (CMP) - Co llect Date/Time: 09/08/2020 21:00 Test Name Code Test Result Test Units Test Ref Range GLUCOSE 2345-7 129 mg/dL L=70 H=116 BUN 3094-0 35 mg/dL L=6 H=25 CREATININE 2160-0 1.61 mg/dL L=0.51 H=0.95 SODIUM SERUM 2951-2 136 mmol/L L=136 H=145 POTASSIUM SERUM 2823-3 4.8 mmol/L L=3.4 H=5.2 CHLORIDE SERUM 2075-0 102 mmol/L L=96 H=110 CARBON DIOXIDE (CO2) 2028-9 26 mmol/L L=22 H= 34 ANION GAP 96149-7 8.2 mmol/L CALCIUM SERUM 25428-4 8.9 mg/dL L=8.2 H=10.2 BILIRUBIN TOTAL 1975-2 0.4 mg/dL L=0.0 H=1.3 ALK. PHOS. 6768-6 93 U/L L=46 H=116 SGOT (AST) 1920-8 23 U/L L=15 H=37 SGPT (ALT) 1742-6 23 U/L L=12 H=78 TOTAL PROTEIN 2885-2 7.2 gm/dL L=6.0 H=8.0 ALBUMIN 1751-7 3.8 gm/dL L=3.4 H=5.0 AGE 70 years eGFR (non-Afr.Amer.) 64816-4 32 mL/min eGFR (Afr-Grenadian) 20867-2 38 mL/min GLUCOSE FINGER/HEEL CAPILLARY - Collect Date/Time: 09/13/2020 08:25 Test Name Code Test Result Test Units Test Ref Range GLUCOSE CAP 107 mg/dL L=70 H=116 GLUCOSE FINGER/HEEL CAPILLARY - Collect Date/Time: 09/12/2020 07:40 Test Name Code Test Result Test Units Test Ref Range GLUCOSE CAP 109 mg/dL L=70 H=116 GLUCOSE FINGER/HEEL CAPILLARY - Collect Date/Time: 09/11/2020 07:39 Test Name Code Test Result Test Units Test Ref Range GLUCOSE CAP 112 mg/dL L=70 H=116 GLUCOSE FINGER/HEEL CAPILLARY - Collect Date/Time: 09/10/2020 07:55 Test Name Code Test Result Test Units Test Ref Range GLUCOSE CAP 114 mg/dL L=70 H=116 GLUCOSE FINGER/HEEL CAPILLARY - Collect Date/Time: 09/09/2020 07:35 Test Name Code Test Result Test Units Test Ref Range GLUCOSE CAP 126 mg/dL L=70 H=116 LIPASE - Collect Date/Time: 09/08/2020 2 1:00 Test Name Code Test Result Test Units Test Ref Range LIPASE 48 U/L L=73 H=393 CBC W/ DIFFERENTIAL - Collect Date/Time: 09/09/2020 09:30 Test Name Code Test Result Test Units Test Ref Range WBC 6690-2 6.15 th/cmm L=5.00 H=10.00 NEUT % 60.2 % L=40.0 H=80.0 LYMPH % 22.1 % L=10.0 H=50.0 MONO % 39074-1 16.4 % L=2.0 H=12.0 EOS % 0.8 % L=0.0 H=8.0 BASO % 0.3 % L=0.0 H=3.0 IG % 2514-8 0.2 % L=0.0 H=1.1 NRBC % 65164-3 0.0 % L=0.0 H=0.0 NEUT abs count 751-8 3.7 th/cmm L=1.6 H=8.4 LYMPH abs count 731-0 1.4 th/cmm L=1.5 H=4.0 MONO abs count 742-7 1.0 th/cmm L=0.2 H=1.0 EOS abs count 711-2 0.1 th/cmm L=0.0 H=0.5 BASO abs count 704-7 0.0 th/cmm L=0.0 H=0.2 IG abs count 09897-8 0.0 th/cmm L=0.0 H=0.1 NRBC abs count 85579-4 0.0 mil/cmm L=0.0 H=0.0 RBC 789-8 3.97 mil/cmm L=3.90 H=5.40 HEMOGLOBIN 718-7 12.7 gm/dL L=12.0 H=16.0 HEMATOCRIT 4544-3 39 % L=37 H=47 MCV 787-2 98 fL L=82 H=92 MCH 785-6 32.0 pg L=27.0 H=31.0 MCHC 786-4 32.7 % L=32.0 H=36.0 RDW-SD 788-0 45.9 fL L=39.0 H=49.0 PLATELET COUNT 777-3 172 th/cmm L=150 H=450 CBC W/ DIFFERENTIAL - Collect Date/Time: 09/08/2020 21:00 Test Name Code Test Result Test Units Test Ref Range WBC 6690-2 9.75 th/cmm L=5.00 H=10.00 NEUT % 75.3 % L=40.0 H=80.0 LYMPH % 12.3 % L=10.0 H=50.0 MONO % 14604-9 10.4 % L=2.0 H=12.0 EOS % 1.4 % L=0.0 H=8.0 BASO % 0.3 % L=0.0 H=3.0 IG % 2514-8 0.3 % L=0.0 H=1.1 NRBC % 69667-1 0.0 % L=0.0 H=0.0 NEUT abs count 751-8 7.3 th/cmm L=1.6 H=8.4 LYMPH abs count 731-0 1.2 th/cmm L=1.5 H=4.0 MONO abs count 742-7 1.0 th/cmm L=0.2 H=1.0 EOS abs count 711-2 0.1 th/cmm L=0.0 H=0.5 BASO abs count 704-7 0.0 th/cmm L=0.0 H=0.2 IG abs count 22498-3 0.0 th/cmm L=0.0 H=0.1 NRBC abs count 36602-5 0.0 mil/cmm L=0.0 H=0.0 RBC 789-8 4.07 mil/cmm L=3.90 H=5.40 HEMOGLOBIN 718-7 13.3 gm/dL L=12.0 H=16.0 HEMATOCRIT 4544-3 39 % L=37 H=47 MCV 787-2 96 fL L=82 H=92 MCH 785-6 32.7 pg L=27.0 H=31.0 MCHC 786-4 34.0 % L=32.0 H=36.0 RDW-SD 788-0 43.4 fL L=39.0 H=49.0 PLATELET COUNT 777-3 195 th/cmm L=150 H=450 PT PROTHROMBIN TIME - Collect Date/Time: 09/08/2020 21:10 Test Name Code Test Result Test Units Test Ref Range PROTIME 5902-2 10.3 seconds L=9.3 H=11.4 INR 14503-9 1.01 L=2.00 H=3.00 PTT PARTIAL THROMBOPLASTIN TIME - Collec t Date/Time: 09/08/2020 21:10 Test Name Code Test Result Test Units Test Ref Range PTT 86921-3 24 seconds L=24 H=32 JANENE COVID RHEONIX - Collect Date/Time : 09/09/2020 00:49 Test Name Code Test Result Test Units Test Ref Range SOURCE= Anterior nasal N/A Tier- INPATIENT/ED N/A SARS COV2 RNA: 17911-1 NEGATIVE N/A REFERENCE RAN GE: NEGAT URINALYSIS WITH REFLEX CULT IF POSITIVE - Collect Date/Time: 09/09/2020 00:15 Test Name Code Test Result Test Units Test Ref Range COLLECTION MODE: Clean Catch N/A Color 5778-6 YELLOW N/A yellow Appearance 5767-9 CLEAR N/A clear Glucose urine 55882-5 NEGATIVE N/A negative mg/dl Bilirubin 5770-3 NEGATIVE N/A negative Ketones 2514-8 NEGATIVE N/A negative mg/dl Spec gravity 5811-5 1.010 N/A 1.003 - 1.030 pH urine 2756-5 6.0 N/A 5.0 - 7.0 Protein 34330-8 NEGATIVE N/A negative mg/dl Urobilinogen 98379-6 0.2 N/A <or= 1 EU/dl Nitrite. 5802-4 NEGATIVE N/A negative Blood 5794-3 NEGATIVE N/A negative Leukocytes. NEGATIVE N/A negative MICROSCOPIC NOT INDICAT N/A Active Medications Medications Administered During Visit Medication Dose Units Frequency Route Date/Time of L ast Dose SODIUM CHLORIDE 0.9% 1000ML IV CONT 09/09/2020 06:25 ACETAMINOPHEN INJ SDV: PRN Q8H 07:24 1000MG/100ML HYDROmorphone INJ SYRINGE: 1 MG PRN Q2H IVP 09/10/2020 12:56 1MG/ML ONDANSETRON INJ SDV: 4MG/2ML 4 MG PRN Q6H IVP 09/12/2020 12:13 DONEPEZIL TABLET: 5MG 10 MG BID PO 07/2020 08:27 LEVOTHYROXINE TABLET: 100MCG 100 MCG DAILY PO 09/13/2020 08:27 LISINOPRIL TABLET: 20MG 20 MG DAILY PO 0 09/13/2020 08:27 AmLODIPine TABLET: 5MG 2.5 MG DAILY PO 08:27 ATORVASTATIN TABLET: 20MG 20 MG BEDTIME PO 09/12/2020 19:51 BuPROPion XL TABLET: 150MG 450 MG DAILY PO 09/13/2020 08:27 ESCITALOPRAM TABLET: 10MG 20 MG DAILY PO 09/13/2020 08:27 HYDROmorphone INJ SYRINGE: 2 MG PRN Q4H IVP 09/10/2020 04:47 2MG/ML PANTOPRAZOLE TABLET: 40MG 40 MG Q7AM PO 09/13/2020 06:22 RIVAROXABAN TAB: 10MG 10 MG Q5PM PO 06/2020 17:28 HYDROmorphone TABLET: 4MG 4 MG PRN Q4H PO 09/12/2020 05:17 HYDROmorphone TABLET: 2MG 2 MG PRN Q4H PO 09/13/2020 11:28 POLYETHYLENE GLYCOL PACKET 17 GRAMS DAILY PO 09/12/2020 08:07 3350:17GM MILK OF MAGNESIA SUSP UD: 30 ML PRN DAILY PO 09/12/2020 08:07 2400MG/30ML DOCUSATE SODIUM CAPSULE: 100MG 100 MG BID PO 09/12/2020 19:51 ACETAMINOPHEN TABLET: 325MG 975 MG TID PO 09/13/2020 08:27 CALCIUM CARBONATE TAB CHEWABLE 500 MG PRN Q2H CHEW 09/13/2020 11:43 UD: 500MG Encounters Encounter Diagnosis Diagnosis Code Start Date Unspecified fracture of lower end of left humerus, [id number] 09/10/2020 initial encounter for closed fracture Social History Smoking Status Code Start Date End Date Former smoker [id number] Patient Decision Aids Patient Decision Aid Patient Portal Access Discharge Instructions You were admitted to [facility] [address] on 09/10/2020 08:18 with a principal diagnosis of Unspecified fracture of low er end of left humerus, initial encounter for closed fracture You had the following tests done: GLUCO SE FINGER/HEEL CAPILLARY GLUCOSE FINGER/HEEL CAPILLARY GLUCOSE FINGER/HEEL CAPILLARY GLUCOSE FINGER/HEEL CAPILLARY BASIC METABOLIC PANEL (BMP) CBC W/ DIFFERENTIAL GLUCOSE FINGER/HEEL CAPILLARY [facility] COVID RHEONIX URINALYSIS WITH REFLEX CULT IF POSITIVE PT PROTHROMBIN TIME PTT PARTIAL THROMBOPLASTIN TIME CBC W/ DIFFERENTIAL COMPREHENSIVE METABOLIC PANEL (CMP) LIPASE You were discharged from [facility] [address] on 09/13/2020 12:00 Should you have any questions prior to d ischarge, please contact a member of your healthcare team. If you have left the spital and have any questions, please contact your primary care physician. Chief Complaint and Reason For Visit Chief Complaint Date of Onset FALL LEFT ELBOW FX 09/10/2020 Function Status Unknown or Not Available. Plan of Care Unknown or Not Available. Referral/Transition of Care Reason for Transfer: TRANSFER FROM [facility]
--- OUTSIDE RECORDS SUMMARY | 2021-10-13 16:02 | XMS_ITS | Encounter Summary ---
:1950 Author Organization [facility] Address [address] [place] [address] Care Team Providers Name Role Phone [place] Rizvi MD Primary Care Provider Encounter Details Date Type Department Care Team Description 02/28/2019 - Hospital Encounter [facility] Pain Clinic X ray Knee pain 03/01/2019 [address] [place], [place] [id number] Social History Tobacco Use Types Packs/Day Years [...] Office Visit Neurology Edvin Harvey M D [address] [place] [address] [address] [place] [address] (Wo rk) documented as of this encounter Procedures Procedure Name Priority Date/Time Associated Diagnosis Comme nts PAIN CLINIC FL Routine 02/28/2019 15:01 Knee pain Results f or this PROCEDURE EST procedure are i n the results section. documented in this encounter Results PAIN CLINIC FL PROCEDURE (02/28/2019 15:01 EST) Specimen Narrative 02/28/2019 15:01 EST This is a non-reportable exam. documented in this encounter Visit Diagnoses Diagnosis Knee pain Pain in joint, lower leg documented in this encounter Care Teams Mechanical Shovel Operator Relationship Specialty Start Date End Date [place] Rizvi MD PCP - General 02/21/10 08/30/[address] [place] [address] documented as of this encounter
--- OUTSIDE RECORDS SUMMARY | 2021-10-13 16:02 | XMS_ITS | Encounter Summary ---
:1950 Author Organization [facility] Address [address] [place] [address] Care Team Providers Name Role Phone [place] Rizvi MD Primary Care Provider Ekaterina Omer Primary Care Provider Encounter Details Date Type Department Care Team Description 01/22/2019 Results Only Imaging [facility] - Ekaterina Rod[place]guez [facility] [address] [facility] [address] [place] [address] [place] [address] [phone] Social History Tobacco Use Types Packs/Day Years [...] Visit Neurology Edvin Harvey M D [address] [facility] [address] [place] [address] (Wo rk) documented as of this encounter Procedures Procedure Name Priority Date/Time Associated Diagnosis Comme nts MA BREAST SCREENING 01/22/2019 15:25 Resu lts for this PAMELA BILATERAL EST procedure are in the results section. documented in this encounter Results MA BREAST SCREENING PAMELA BILATERAL (01/22/2019 15:25 EST) Specimen Narrative [facility] - 01/22/2019 15:25 EST ? EXAM: MAMMOGRAM/MAMMO BILATERAL SCREEN W ??EX. D/ (1041) ? CLINICAL INFORMATION: ? Z12.31 SCREENING ? INDICATION: Z12.31 SCREENING SCRE ENING ??Jan 16 ? COMPARISON: Comparison has been m raheem to previous images. ? TECHNIQUE: ??Full field digital w hole breast 2D (C-view) and 3D CC and ? MLO views of both breasts were ob tained. CAD technology was utilized. ? FINDINGS: ??The fibroglandular pa tterns of the breasts are normal. ? There has been no change when com pared to previous mammograms and ? there is no mammographic evidence of cancer. There are scattered ? areas of fibroglandular density. ? FINAL ASSESSMENT BILATERAL BREAST : ??BI-RADS Category 1 - Negative. ? Routine mammographic follow-up is recommended. ? These results will be communicate d to your patient via a lay letter ? from Radiology. ??If any addition al imaging is needed we will contact ? your patient directly. ? REPORT SIGNED IN OTHER VENDOR SYSTEM 01/24/2019 ?Reported B y: Marcos Powell MD ? CC: ? Transcribed Date/Time: 01/22/2019 (1525) ? Process Eng: ? Printed Date/Time: 01/24/2019 (11 43) ? PAGE 1 ? Maliha d Report ? Procedure Note Marcos Powell S - 01/24/2019 EXAM: MAMMOGRAM/MAMMO BILATERAL SCREEN W EX. D/ (1041) CLINICAL INFORMATION: Z12.31 SCREENING INDICATION: Z12.31 SCREENING SCREENING Jan 16 COMPARISON: Comparison has been made to previous images. TECHNIQUE: Full field digital whole manav ast 2D (C-view) and 3D CC and MLO views of both breasts were obtained . CAD technology was utilized. FINDINGS: The fibroglandular patterns o f the breasts are normal. There has been no change when compared to previous mammograms and there is no mammographic evidence of ca ncer. There are scattered areas of fibroglandular density. FINAL ASSESSMENT BILATERAL BREAST: BI-R ADS Category 1 - Negative. Routine mammographic follow-up is recom mended. These results will be communicated to y our patient via a lay letter from Radiology. If any additional imagi ng is needed we will contact your patient directly. REPORT SIGNED IN OTHER VENDOR SYSTEM 01/24/2019 Reported By: Marcos Powell MD CC: Transcribed Date/Time: 01/22/2019 (1525 ) Process Eng: Printed Date/Time: 01/24/2019 (3277) PAGE 1 Signed Report Performing Organization Address City/State/ZIP Code Phon e Number [facility] documented in this encounter Visit Diagnoses Not on filedocumented in this encounter Care Teams Chassis Inspector Relationship Specialty Start Date End Date [place] Rizvi MD PCP - General 02/21/10 08/30/[address] [place] [address] Ekaterina Omer PCP - General Internal Medicine - 08/31/[address] [place] [address] documented as of this encounter
--- OUTSIDE RECORDS SUMMARY | 2021-10-13 16:02 | XMS_ITS | Encounter Summary ---
:1950 Author Organization [facility] Address [address] [place] [address] Care Team Providers Name Role Phone [place] Rizvi MD Primary Care Provider Reason for Visit Reason Onset Date Comments Appointment Related 02/12/2019 Encounter Details Date Type Department Care Team Description 02/12/2019 Telephone [facility] - Arabella Dalton RN Jarrod ointment Related [facility] Interventional Pain [address] [place] [address] Social History Tobacco Use Types Packs/Day Years [...] making decisions? documented as of this encounter Miscellaneous Notes Telephone Encounter - Roslyn Graves - 03/21/2019 1009 EST No ABN will be needed for this appointment. Recall has been made in the system for June when patient returns from [place]. elephone Encounter - Estefani Romano RN - 02/13/2019 1312 EST This will be dependent on what PSS can schedule. Forwarded to PSS. She will need 2 appts for nerve block and 1-2 appt for RFA. elephone Encounter - Collin Roche - 02/13/2019 0945 EST Reason For Encounter/Call: Appointment Call Details (Specific Reasons/Concerns/Details): Kiya, has another appointment on 02/24, and is leaving for [place] on 03/14/2019. She needs to reschedule her Genicular Nerve Block. She asked if we could fit her in beforehand for the Nerve Block and possibly the [place] RFA R Knee before March? If not, she said she will have to wait until June, which may need a new prior authorization Last Visit with Our Clinic: 01/14/2019 Alice Mccrary, was scheduled for 02/[address] Linder for Nerve Block Next Visit (Return Date/Time/Provider) TBD Prior Authorization in Place - Specify (Yes or No): No, but may need new PA if delayed until June Call Patient Back ??? Specify (Yes or No): Yes Collin Roche 02/13/2019 9:45 elephone Encounter - Arabella Welch RN - 02/12/2019 1448 EST RN contacted patient to ask about stopping her Eliquis ahead of her procedure tomorrow. Patient stopped 02/11. Per Dr. Linder we will have to reschedule the patient as she needs 3 full days off. Patient able to verbalize understanding, will forward to PSS to reschedule NUVIA. documented in this encounter Plan of Treatment Upcoming Encounters Date Type Specialty Care Team Description 10/19/2021 Office Visit Neurology Edvin Harvey M D [address] [place] [address] [address] [place] [phone] (Wo rk) documented as of this encounter Visit Diagnoses Not on filedocumented in this encounter Care Teams Logistics/Shipper Relationship Specialty Start Date End Date [place] Rizvi MD PCP - General 02/21/10 08/30/21 [address] [place] [address] documented as of this encounter
--- OUTSIDE RECORDS SUMMARY | 2021-10-13 16:02 | XMS_ITS | Clinical Summary ---
:1950 Author Organization [facility] Address [address] [place] [address] Care Team Providers Name Role Phone Ekaterina Omer Primary Care Provider Allergies Active Allergy Reactions Severity Noted Date Comments Sulfa (Sulfonamide Antibiotics) Hives 0 Medications Medication Sig Dispensed Refills Start Date End Date Status desipramine Take 40 mg by mouth 0 Active (NORPRAMIN) 10 mg daily. Indications: tabletIndications: NEUROPATHIC PAIN neuropathic pain montelukast Take 10 mg by mouth 0 Active (SINGULAIR) 10 mg daily. tablet fexofenadine Take 180 mg by 0 Ac tive (MARY JO) 60 mg mouth daily. tablet levothyroxine Take 100 mcg by 0 Active (SYNTHROID) 100 mcg mouth daily. tablet duloxetine (CYMBALTA) Take 90 mg by mouth 0 02/22/20 10 Active 30 mg capsule daily. meloxicam (MOBIC) 15 Take 15 mg by mouth 0 Active mg tablet daily. buPROPion (WELLBUTRIN Take 100 mg by 0 02/21/2010 Active SR) 100 mg SR tablet mouth daily. esomeprazole (NEXIUM) Take 20 mg by mouth 0 Active 20 mg capsule daily. hydrocodone-acetamino Take 1 Tab by mouth 0 Active phen (LORTAB) 10-500 every 6 hours as mg per needed. tabletIndications: Indications: PAIN pain albuterol (PROVENTIL Inhale 2 Puffs as 0 02/21/2010 Active HFA, VENTOLIN HFA) 90 directed every 4 mcg/Actuation hours as needed. inhalerIndications: Indications: ACUTE acute asthma attack ASTHMA ATTACK fluticasone-salmetero Inhale 1 Puff as 0 02/21/2010 Active l (ADVAIR) 100-50 directed 2 times mcg/dose diskus daily. Indications: inhalerIndications: BRONCHIAL ASTHMA asthma ciprofloxacin (CIPRO) Take 1 Tab by mouth 5 Tab 0 02/23/20 10 Active 500 mg tablet every 12 hours. Additional Information Patient not taking. Reported on 01/14/2019 escitalopram oxalate (LEXAPRO ORAL) Take by mouth. 0 Active apixaban (ELIQUIS) 5 mg tablet Take 5 mg by mouth daily. 0 Active Active Problems Problem Noted Date Chest pain 02/22/2010 Encounters Date Type Specialty Care Team Description 08/31/2021 Hospital Encounter Radiology Encounter for screening mammo gram for malignant neoplasm of manav ast 08/25/2021 Lab Requisition Clinical Laboratory Outr Resulting Lab, Provider from Last 3 Months Immunizations Name Administration Dates Next Due Covid-19 mRNA Booster Vaccine (MODERNA COVID-19 01/28/2021 BOOSTER) PF 0.25 mL IM (18 yrs+) Covid-19 mRNA Vaccine (MODERNA COVID-19) PF 0.5 ml IM 2020, 04/28/2020 (12 yrs+) Influenza (split) 02/21/2010 Medical History Medical History Date Comments Environmental allergies Social History Tobacco Use Types Packs/Day Years Used Date Former Smoker Quit: 01/14/19 73 Smokeless Tobacco: Never Used Alcohol Use Standard Drinks/Week Comments No 0 (1 standard drink = 0.6 oz pure alcoho l) Sex Assigned at Date Recorded Not on file Last Filed Vital Signs Vital Sign Reading Time Taken Comments Blood Pressure 131/63 02/28/2019 1502 EST Pulse 62 02/28/2019 1502 EST Temperature 36.2 ??C (97.1 ??F) 02/28/2019 1421 EST Respiratory Rate 16 02/22/2010 1421 EST Oxygen Saturation 96% 02/22/2010 1421 EST Inhaled Oxygen Concentration - - Weight 124.7 kg (275 lb) 02/21/20102158 EST Height 162.6 cm (5' 4) 02/21/20102158 EST Body Mass Index 47.2 02/21/20102158 EST Plan of Treatment Upcoming Encounters Date Type Specialty Care Team Description 10/19/2021 Office Visit Neurology Edvin [facility] M D [address] [facility] [address] [place] [address] (Wo rk) Health Maintenance Due Date Last Done Comments Hepatitis C Screen 1950 Fall Risk Screening 2015 COVID-19 Vaccine (4 - Booster for 05/28/2021 01/28/2021, , Moderna series) 04/28/2020 Procedures Procedure Name Priority Date/Time Associated Diagnosis Comme nts XR OUTSIDE IMAGES Routine 09/09/2021 11:36 Result s for this NEURO EDT procedure are i n the results section. MA BREAST SCREENING Routine 08/31/2021 13:14 Encounter for Res ults for this PAMELA BILATERAL EDT screening mammogram proced ure are in for malignant the results neoplasm of breast section. LYME AB Routine 08/25/2021 11:10 Results for this EDT procedure are i n the results section. from Last 3 Months Results XR OUTSIDE IMAGES NEURO (09/09/2021 11:36 EDT) Specimen Narrative 09/09/2021 11:36 EDT This is a non-reportable exam. MA BREAST SCREENING PAMELA BILATERAL (08/31/2021 13:14 EDT) Anatomical Region Laterality Modality Breast Bilateral Mammography Specimen Impressions [facility] - 08/31/2021 15:15 EDT Negative, no evidence of malignancy. RECOMMENDATION: Routine screening mammog carrie is recommended. OVERALL ASSESSMENT: BI-RADS 1: Negative These results will be communicated to yo ur patient via a lay letter from Radiology. If any additional imaging is needed we will contact your patient directly. Narrative [facility] - 08/31/2021 [...] Organization Address City/State/ZIP Code Phon e Number [facility] LYME AB (08/25/2021 11:10 EDT) Pathologist Sig nature Lyme Ab Negative Negative [facility]OR[facility] Y SERVICES Specimen Blood - Venous blood (substance) Performing Organization Address City/State/ZIP Code Phon e Number [facility] [address] [place] [address] SERVICES from Last 3 Months Insurance Payer Benefit Plan / Subscriber ID Effective Dates Phone Addre ss Type Group MEDICARE MEDICARE A/B [id number] 2014-Prese P O [id number] Medicare [place] [phone] [place] [id number] 2018-Presen [address] [place] 65 [address] [facility] [place] [address] (Work) Kiya Rowan Personal/Family Self [address] [place] [address] (Home) [place] [phone] [place] [address] (Work) Kiya Rowan Personal/Family Self [address] [address] (Home) [place] [phone] [place] [address] (Work) Kiya Rowan Personal/Family Self [address] [address] (Home) [place] [phone] [place] [address] (Work) Kiya Rowan Personal/Family Self [address] [place] [address] (Home) [place] [phone] [place] [address] (Work) Kiya Rowan Personal/Family Self [address] [address] (Home) [place] [phone] [place] [address] (Work) Kiya Rowan Personal/Family Self [address] [address] (Home) [place] [phone] [place], [place] [address] (Work) Kiya Rowan Personal/Family Self [address] [place] [address] (Home) [place] [phone] [place] [address] (Work) Advance Directives For more information, please contact: [phone] Latest Code Status on File Code Status Date Activated Date Inactivated Comments Full Code 02/21/2010 21:18 02/22/2010 20:23 Care Teams Head Teacher Relationship Specialty Start Date End Date Ekaterina Omer PCP - General Internal Medicine - Primary 08/31/21 [address] [place] [place] [address]
--- OUTSIDE RECORDS SUMMARY | 2021-10-13 16:02 | XMS_ITS | Encounter Summary ---
:1950 Author Organization [facility] Address [address] [place] [address] Care Team Providers Name Role Phone Dallas Rizvi MD Primary Care Provider Ekaterina Omer Primary Care Provider Encounter Details Date Type Department Care Team Description 10/08/2019 Lab Requisition [facility] Outr Resulting Lab, Pathology & Laboratory Provider [facility] [address] [place], [place] [id number] Social History Tobacco Use Types Packs/Day Years [...] Office Visit Neurology Edvin Harvey M D [address] [place] [address] [address] [place] [phone] (Wo rk) documented as of this encounter Procedures Procedure Name Priority Date/Time Associated Comments Diagnosis THYROPEROXIDASE ANTIBODY Routine 10/07/2019 7:30 Results for this EDT procedure are i n the results section. INSULIN Routine 10/07/2019 7:30 Results for this EDT procedure are i n the results section. documented in this encounter Results THYROPEROXIDASE ANTIBODY (10/07/2019 7:30 EDT) Pathologist Sig nature Thyroperoxidase Ab <28 <=60 U/mL [facility] LABORATORY SERVICES Specimen Blood - Venous blood (substance) Performing Organization Address [facility] Phon e Number [facility] [address] [place] [address] SERVICES INSULIN (10/07/2019 7:30 EDT) Pathologist Sig nature Insulin 17.6 <29.0 uIU/mL [facility] Comment: LABORATORY SERVICES Displayed Reference Range applies to fasting specimens only. Specimen Blood - Venous blood (substance) Performing Organization Address [facility] Phon e Number [facility] [address] [place] [address] SERVICES documented in this encounter Visit Diagnoses Not on filedocumented in this encounter Care Teams Control Systems Drafting Officer Relationship Specialty Start Date End Date Dallas Rizvi MD PCP - General 02/21/10 08/30/[address] [place] [address] Ekaterina Omer PCP - General Internal Medicine - 08/31/[address] Primary Care [place], [place] [id number] documented as of this encounter
--- OUTSIDE RECORDS SUMMARY | 2021-10-13 16:02 | XMS_ITS | Encounter Summary ---
:1950 Author Organization [facility] Address [address] [place] [address] Care Team Providers Name Role Phone Dallas Rizvi MD Primary Care Provider Ekaterina Omer Primary Care Provider Encounter Details Date Type Department Care Team Description 07/29/2020 Lab Requisition [facility] Outr Resulting Lab, Pathology & Laboratory Provider [facility] [address] [place] [address] Social History Tobacco Use Types Packs/Day Years [...] Visit Neurology Edvin Harvey M D [address] [facility] [address] [place] [address] (Wo rk) documented as of this encounter Procedures Procedure Name Priority Date/Time Associated Comments Diagnosis GIARDIA AND Routine 07/28/2020 14:30 Results for this CRYPTOSPORIDIUM ANTIGENS EDT pro cedure are in the results section. H. PYLORI ANTIGEN Routine 07/28/2020 14:30 Result s for this EDT procedure are i n the results section. OVA/PARASITE EXAM Routine 07/28/2020 14:30 Result s for this EDT procedure are i n the results section. documented in this encounter Results GIARDIA AND CRYPTOSPORIDIUM ANTIGENS (07/28/2020 14:30 EDT) Giardia and Cryptosporidium Cryptosporidium [facility] Cryptosporidium Antigen Neg and Antigen Neg and CENTER Giardia Antigen Neg Giardia Antigen Neg LABORATORY SERVICES Specimen Feces - Specimen from rectum (specimen) Performing Organization Address [facility] Phon e Number [facility] [address] [place] [address] SERVICES OVA/PARASITE EXAM (07/28/2020 14:30 EDT) Pathologist Sig nature Parasite No ova and parasites [facility] seen. LABORATORY SERVICES Specimen Feces - Specimen from rectum (specimen) Narrative [facility] SERVICES - 07/30/2020 13:55 EDT (If Cryptosporidium, Cyclospora, or Micr osporidium are suspected, specific tests must be requested.) Single negative specimen does not rule out the possibility of a parasitic infection. Performing Organization Address [facility] Code Phon e Number [facility] [address] [place] [address] SERVICES H. PYLORI ANTIGEN (07/28/2020 14:30 EDT) Pathologist Sig nature H. Pylori Negative Negative [facility] LABORATOR Y SERVICES Specimen Feces - Specimen from rectum (specimen) Narrative [facility] SERVICES - 08/03/2020 14:51 EDT Results were obtained with the Premier P latinum HpSA Plus USAMA. Performing Organization Address City/[facility]/ZIP Code Phon e Number [facility] [address] [place] [address] SERVICES documented in this encounter Visit Diagnoses Not on filedocumented in this encounter Care Teams Rod Buster Relationship Specialty Start Date End Date Dallas Rizvi MD PCP - General 02/21/10 08/30/21 [address] [place], [place] [id number] Ekaterina Omer PCP - General Internal Medicine - 08/31/[address] Primary Care [place] [id number] documented as of this encounter
--- OUTSIDE RECORDS SUMMARY | 2021-10-13 16:02 | XMS_ITS | Encounter Summary ---
:1950 Author Organization [facility] Address [address] [place] [address] Care Team Providers Name Role Phone Dallas Rizvi MD Primary Care Provider Reason for Visit Reason Onset Date Comments Results 03/03/2019 Encounter Details Date Type Department Care Team Description 03/03/2019 Telephone [facility], Results of [facility] MD Katina Interventional Pain [address] [place], [place] [address] [place], [place] [address] (Wo rk) Social History Tobacco Use Types [...] this encounter Miscellaneous Notes Telephone Encounter - Estefani Romano RN - 03/07/2019 0903 EST Injection History: 02/28/2019: Diagnostic Genicular nerve block right ?? Post-MBB Pain Relief: Hours of relief: 0 Percentage relief: 0 Type of next appointment scheduled: follow up within 24 hrs by telephone to report results of diagnostic injection RN spoke with the pt. She had no relief from right Genicular nerve block done on 02/28/2019. Pt states it was hurting when she got into the car after procedure and continued to get worse. I offered pt a follow up appt to discuss options. Pt will follow up with orthopedics. Advised she may call if she has any other questions or concerns. Results recorded on doc flowsheet. elephone Encounter - Liz Monroe - 03/03/2019 1130 EST Pt calling to let us know the Diagnostic Genicular nerve block right on 02/28/[address] Linder did not work. Please advise ?? documented in this encounter Plan of Treatment Upcoming Encounters Date Type Specialty Care Team Description 10/19/2021 Office Visit Neurology Edvin Harvey M D [address] [place] [address] [address] [place] [address] (Wo rk) documented as of this encounter Visit Diagnoses Not on filedocumented in this encounter Care Teams Auto Slip Cover Installer Relationship Specialty Start Date End Date Dallas Rizvi MD PCP - General 02/21/10 08/30/21 [address] [place], [place] [address] documented as of this encounter
--- OUTSIDE RECORDS SUMMARY | 2021-10-13 16:02 | XMS_ITS | Encounter Summary ---
:1950 Author Organization [facility] Address [address] [place] [address] Care Team Providers Name Role Phone Dallas Rizvi MD Primary Care Provider Ekaterina Omer Primary Care Provider Encounter Details Date Type Department Care Team Description 07/29/2020 Lab Requisition [facility] Outr Resulting Lab, Pathology & Laboratory Provider [facility] [address] [place] [address] Social History Tobacco Use Types [...] Visit Neurology Edvin Harvey M D [address] [facility] [address] [place] [address] (Wo rk) documented as of this encounter Procedures Procedure Name Priority Date/Time Associated Diagnosis Comme nts FECAL BACTERIAL Routine 07/28/2020 14:30 Results for this PATHOGENS BY PCR EDT procedure a re in the results section. documented in this encounter Results FECAL BACTERIAL PATHOGENS BY PCR (07/28/2020 14:30 EDT) Pathologist Sig nature Salmonella PCR Negative Negative [facility] LABOR[facility] SERVICES Shigella/Enteroinvasive Negative Negative [facility] E. coli LABORATORY SERVICES HN LAB CAMPYLOBACTER PCR Negative Negative [facility] MED[facility] ER LABORATORY SERVICES Shiga Toxin PCR Negative Negative [facility] SERVICES Specimen Feces - Specimen from rectum (specimen) Performing Organization Address City/State/ZIP Code Phon e Number [facility] [address] [place] [address] SERVICES documented in this encounter Visit Diagnoses Not on filedocumented in this encounter Care Teams Process Control Technician Relationship Specialty Start Date End Date Dallas Rizvi MD PCP - General 02/21/10 08/30/[address] [place], [place] [id number] Ekaterina Omer PCP - General Internal Medicine - 08/31/[address] Primary Care [place], [place] [phone] documented as of this encounter
--- OUTSIDE RECORDS SUMMARY | 2021-10-13 16:02 | XMS_ITS | CCD ---
:1950 Author Care Team Providers Name Role Phone ROSETTA TY Attending Physician Unavailable Vital Signs Unknown or Not Available. Allergies Allergy Code Allergy Type Reaction Status MIRAPEX 580224 Drug allergy Hives Active SULFA (sulfonamide) 0 Drug allergy Active KEFLEX 20300816 Drug allergy Active PENICILLIN 0 Drug allergy Active CIPRO [id number] Drug allergy Hives Active Procedures Unknown or Not Available. History of Immunizations Unknown or Not Available. Problems Problem Code Start Date Resolved Date Status Fracture of left elbow, initial [id number] Active encounter for closed fracture Results Unknown or Not Available. Active Medications Medication Code Dose Units Frequency Route Modification Start Date/Time Narcan 4MG/0.1ML 3891875 1 SPRAY NEEDED NASAL 09/13 Nasal [place] 10:54 Prescription Detail SPRAY 1 SPRAY NASAL NEEDE D FOR NARCOTIC OVERDOSE Acetaminophen 500MG Oral 554795 2 TABLET THREE TIMES A ORAL 09/13/2020 10:46 Tablet DAY Prescription Detail TAKE 2 TABLET ORAL THREE RAVEN ES A DAY Atorvastatin Calcium 20MG 015712 20 MILLIGRAMS BEDTIME ORAL 09/13/2020 10:45 Oral Tablet Prescription Detail TAKE 20 MILLIGRAMS ORAL BEDT CHIARA buPROPion HCl 150MG Oral 588850 150 MILLIGRAMS DAILY ORAL 09/13/2020 10:45 Tablet, Extended Release Prescription Detail TAKE 150 MILLIGRAMS ORAL JENNY LY buPROPion HCl XL 300MG 474027 300 MILLIGRAMS DAILY ORAL 09/13/2020 10:45 Oral Tablet, Extended Release, 24 HR Prescription Detail TAKE 300 MILLIGRAMS ORAL JENNY LY Escitalopram 20MG Oral 218009 20 MILLIGRAMS DAILY ORAL 09/13/2020 10:45 Tablet Prescription Detail TAKE 20 MILLIGRAMS ORAL ANDI Y Xarelto 10MG Oral Tablet 9513930 10 MILLIGRAMS DAILY ORAL 09/13/2020 10:45 Prescription Detail TAKE 10 MILLIGRAMS ORAL ANDI Y Levothyroxine Sodium 112MCG Oral 888559 100 MCG DAILY ORAL 01/30/2020 10:16 Tablet Prescription Detail TAKE 100 MCG ORAL DAILY Medications Administered During Visit Unknown or Not Available. Encounters Encounter Diagnosis Diagnosis Code Start Date Other low back pain M5459 07/14/2021 Social History Smoking Status Code Start Date End Date Former smoker [id number] Patient Decision Aids Unknown or Not Available. Discharge Instructions You were admitted to [facility] on 07/14/2021 06:55 with a principal diagnosis of Other low back pain You were discharged from [facility] on 08/05/2021 12:05 Should you have any questions prior to [...]
--- OUTSIDE RECORDS SUMMARY | 2021-10-13 16:02 | XMS_ITS | Encounter Summary ---
:1950 Author Organization [facility] Address [address] [place] [address] Care Team Providers Name Role Phone Dallas Rizvi MD Primary Care Provider Reason for Visit Reason Onset Date Comments Prior Auth, Other (i.e. radiology, etc.) 01/15/2019 Encounter Details Date Type Department Care Team Description 01/15/2019 Telephone [facility] Mccrary Prior Auth, Other [facility] [place] (i.e. radiology, etc.) [facility] [address] [facility] Interventional Pain [address] [facility] [address] [place], [place], [place] [address] [facility] [address] Social History Tobacco Use Types Packs/Day [...] Notes Telephone Encounter - Roslyn Graves - 01/28/2019 1054 EST 01/28/2019, attempted to contact patient. Left message on machine for patient to contact office to schedule next appointment. A recall appointment has been made in the system. elephone Encounter - Roslyn Graves - 01/22/2019 1037 EST Dx code M25.561 meets medical necessity for CPT code 33830. No ABN will be needed for this appointment. Ready to schedule with any attending. elephone Encounter - Roslyn Graves - 01/15/2019 1342 EST Patient needs to be scheduled for right genicular nerve block per AVS at last office visit on 01/14/2019. Patint uses Medicare for primary insurance. Will screen for ABN. documented in this encounter Plan of Treatment Upcoming Encounters Date Type Specialty Care Team Description 10/19/2021 Office Visit Neurology Edvin Harvey M D [address] [place] [address] [address] [place] [address] (Wo rk) documented as of this encounter Visit Diagnoses Not on filedocumented in this encounter Care Teams Title Department Manager Relationship Specialty Start Date End Date Dallas Rizvi MD PCP - General 02/21/10 08/30/[address] [place] [address] documented as of this encounter
--- OUTSIDE RECORDS SUMMARY | 2021-10-13 16:02 | XMS_ITS ---
:1950 External Reference #:[id number] Author Care Team Providers Name Role Phone Kath Fernández Primary Care Provider Unavailable Allergies None recorded. Medications Name Status Start Date Stop Date ? ? amlodipine 2.5 mg tablet Active ? Not karla ilable atorvastatin 20 mg tablet Active ? Not av ailable bupropion HCl SR 150 mg tablet,12 hr sustained-release Active ? Not available bupropion HCl XL 300 mg 24 hr tablet, extended release Active ? Not available cefpodoxime 100 mg tablet Completed ? 2019 donepezil 10 mg tablet Active ? Not avail able Eliquis 2.5 mg tablet Completed ? 08/27/2019 escitalopram 10 mg tablet Active ? Not av ailable escitalopram 20 mg tablet Completed ? 2019 estradiol 0.01% (0.1 mg/gram) vaginal cream Active ? Not available levothyroxine 100 mcg tablet Active ? Not available lisinopril 10 mg tablet Active ? Not avai lable lisinopril 20 mg tablet Active ? Not avai lable metformin 500 mg tablet Active ? Not avai lable triamcinolone acetonide 0.1 % topical cream Active ? Not available triamcinolone acetonide 0.1 % topical ointment Active ? Not available venlafaxine ER 150 mg capsule,extended release 24 hr Active ? Not available venlafaxine ER 75 mg capsule,extended release 24 hr Active ? Not available Xarelto 10 mg tablet Active ? Not availab le Problems Name Status Onset Date Source ? Vitamin D Deficiency Active 08/27/2019 ? Chronic Kidney Disease Stage 2 Active 08/27/2019 ? Muscle Weakness Active 08/27/2019 ? Fatigue Active 08/27/2019 ? Poor Short-term Memory Active 08/27/2019 ? Dyspnea on Exertion Active 08/27/2019 ? Dyspnea at Rest Active 08/27/2019 ? Urinary Incontinence Active 08/27/2019 ? Prediabetes Active 08/27/2019 ? Procedures None recorded. Results Lab Results None recorded. Past Encounters None recorded. Social History None recorded. Vaccine List None recorded. Plan of Care Reminders Provider Appointments None recorded. ? ? Lab None recorded. ? ? Referral None recorded. ? ? Procedures None recorded. ? ? Surgeries None recorded. ? ? Imaging None recorded. ? ? Vitals 09/25/2019 09:00AM ESTABLISHED PATIENT 45 Height Weight BMI Blood Pressure 5 ft 3 in 241 lbs 16 oz 42.9 kg/m2 148/66 mm[Hg] 08/27/2019 09:00AM NEW PATIENT 89 Height Weight BMI Blood Pressure 5 ft 3 in 244 lbs 16 oz 43.4 kg/m2 110/70 mm[Hg]
--- OUTSIDE RECORDS SUMMARY | 2021-10-13 16:02 | XMS_ITS | Encounter Summary ---
:1950 Author Organization [facility] Address [address] [place] [address] Care Team Providers Name Role Phone Dallas Rizvi MD Primary Care Provider Ekaterina Omer Primary Care Provider Encounter Details Date Type Department Care Team Description 08/25/2021 Lab Requisition [facility] Outr Resulting Lab, Pathology & Laboratory Provider [facility] [address] [place] [address] Social History Tobacco Use Types [...] Visit Neurology Edvin Harvey M D [address] [facility] [address] [place] [address] (Wo rk) documented as of this encounter Procedures Procedure Name Priority Date/Time Associated Diagnosis Comme nts LYME AB Routine 08/25/2021 11:10 EDT Results for this procedure are i n the results section . documented in this encounter Results LYME AB (08/25/2021 11:10 EDT) Pathologist Sig nature Lyme Ab Negative Negative [facility] Specimen Blood - Venous blood (substance) Performing Organization Address City/State/ZIP Code Phon e Number [facility] [address] [place] [address] SERVICES documented in this encounter Visit Diagnoses Not on filedocumented in this encounter Care Teams Application Helper Relationship Specialty Start Date End Date Dallas Rizvi MD PCP - General 02/21/10 08/30/[address] [place], [place] [id number] Ekaterina Omer PCP - General Internal Medicine - 08/31/[address] Primary Care [place], [place] [id number] documented as of this encounter
--- OUTSIDE RECORDS SUMMARY | 2021-10-13 16:02 | XMS_ITS | Encounter Summary ---
:1950 Author Organization [facility] Address [address] [place] [address] Care Team Providers Name Role Phone Dallas Rizvi MD Primary Care Provider Reason for Visit Reason Onset Date Comments Appointment Related 02/04/2019 Encounter Details Date Type Department Care Team Description 02/04/2019 Telephone [facility] Ap pointment Related [facility] Katina mathis [facility] [address] [place] [address] [place] [address] [address] [place], [place] [address] [place], [place] [phone] [id number] Social History Tobacco Use Types Packs/Day Years [...] this encounter Miscellaneous Notes Telephone Encounter - Marti Carlson - 02/11/2019 0829 EST Patient returned call and rescheduled appointment on 02/13/19 at 2:15 with check in time of 2:00 pm. elephone Encounter - Collin Roche - 02/10/2019 0955 EST Reason For Encounter/Call: Appointment Call Details (Specific Reasons/Concerns/Details): I left a message for Kiya to call and reschedule her 02/11 appointment as it was incorrectly schedule into a time the provider is not in clinic. Pleasereschedule in her next available slot, which I show as 02/13/2019 at 2:15pm with a 2pm Check-in time. Last Visit with Our Clinic: 01/14/2019 Alice Mccrary Next Visit (Return Date/Time/Provider) Reschedule for 02/13/[address] - Specify (Yes or No): Yes Call Patient Back ??? Specify (Yes or No): No Collin Roche - OSS 02/10/2019 9:55 elephone Encounter - Estefani Romano RN - 02/04/2019 1319 EST RN left a message for the pt to return call elephone Encounter - Marti Carlson - 02/04/2019 1030 EST Patient has an appointment for a genicular nerve block and has questions. Please call. documented in this encounter Plan of Treatment Upcoming Encounters Date Type Specialty Care Team Description 10/19/2021 Office Visit Neurology Edvin Harvey M D [address] [place] [address] [address] [place] [address] (Wo rk) documented as of this encounter Visit Diagnoses Not on filedocumented in this encounter Care Teams Church History Teacher Relationship Specialty Start Date End Date Dallas Rizvi MD PCP - General 02/21/10 08/30/[address] [place] [place] [address] documented as of this encounter
--- OUTSIDE RECORDS SUMMARY | 2021-10-13 16:02 | XMS_ITS | Encounter Summary ---
:1950 Author Organization [facility] Address [address] [place] [address] Care Team Providers Name Role Phone Dallas Rizvi MD Primary Care Provider Reason for Visit Reason Comments Pain knee Encounter Details Date Type Department Care Team Description 02/28/2019 Procedure visit [facility] osteoarthritis [facility] knee ([facility] MD Katina Dx) Interventional Pain [address] [place], [place] [address] [address] [place], [place] [address] Social History Tobacco Use Types Packs/Day Years [...] (97.1 ??F) 02/28/2019 1421 EST Respiratory Rate - - Oxygen Saturation [...] making decisions? documented as of this encounter Patient Instructions Patient InstructionsCorina Tristan RN - 02/28/2019 14:15 EST [facility] [address] [address] Medial Branch Block Patient Instructions You underwent a procedure called genicular BRANCH BLOCK today. This is a diagnostic test to determine if this is the cause of your pain. Your results from today???s injection will help us guide furthercare for you. Please call us back tomorrow with your hours and % of relief. Following this procedure, continue to be active for the Remainder of the day and maintain your usual daily routine. Do not drive or operate any motorized vehicles or equipment. Keep track of how long you received relief as well as what percentage of pain relief immediately following the procedure. It can take 30-60 minutes for the long acting local anesthetic to start to work. Separate the needle discomfort, pressure and tightness caused by this procedure from your regular pain. This diagnostic procedure is ONLY intended to last for a number of hours, not days or weeks. Please contact our office the day after your Medial Branch Block with your results. PROCEDURE END TIME: (nurse) 2:55 PAIN RELIEF START TIME: PAIN RELIEF END TIME: HOURS OF RELIEF PERCENTAGE OF RELIEF (0-100%) ADDITIONAL MEDIAL BRANCH BLOCK INSTRUCTIONS Do not operate a automobile or other motorized equipment for the remainder of the day today. You may resume your normal activities or rest tomorrow. If you feel sore where the needles were placed, please use ice to the area for up to 20 minutes at atime. Do not use heat, as this may cause swelling. Once your pain has returned you may resume anti-inflammatory medication (NSAIDs: ibuprofen, Advil, Motrin, alive). NSAIDs and ice will help with any increase in pain you may have after your block has worn off. If you have a fever or any redness or other signs of infection at the injection sites after today, please contact us immediately. Patient Education Topic: Method: Handout and Verbal Taught to: Patient Barriers: None Outcomes: independent and verbalized understanding Signature: Corina Smart RN documented in this encounter Progress Notes Katina Miller MD - 02/28/2019 1415 EST Images from the original note were not included. [facility] Patient Name: Kiya Rowan : 1950 Date of Service: 02/28/2019 Requesting : Alice Mccrary Rv Repairer: Katina Miller MD Pharmacy Technology Instructor: None Procedure: Diagnostic Genicular nerve block right Interval History: Patient presents at the request of Alice Mccrary for continued evaluation and treatment recommendations of the patient's pain. Kiya Rowan primarily localizes the pain at her right knee, without radiation. She describes the pain as aching in character. Patient currently denies any progressive weakness, unexplained fever, trauma or unexplained weight loss. A pain level of 7 was reported at today's visit for location: KNEE. . Details of the current complaint are thoroughly described in the consultation notes from no referring provider's last encounter including pain onset, location, course, workup, therapeutic attempts, and associated functional limitations. The patient reports no recent changes in the character, quality, or distribution of the pain. There are no recent onset of new associated symptoms such as changes in strength, sensation, or bladder control. Injection History: 02/28/2019: Diagnostic Genicular nerve block right Allergies: Allergies Allergen Reactions ??? Sulfa (Sulfonamide Antibiotics) Hives Current Medications: Current Outpatient Medications: albuterol (PROVENTIL HFA, VENTOLIN HFA) 90 mcg/Actuation inhaler apixaban (ELIQUIS) 5 mg tablet buPROPion (WELLBUTRIN SR) 100 mg SR tablet ciprofloxacin (CIPRO) 500 mg tablet desipramine (NORPRAMIN) 10 mg tablet duloxetine (CYMBALTA) 30 mg capsule escitalopram oxalate (LEXAPRO ORAL) esomeprazole (NEXIUM) 20 mg capsule fexofenadine (MARY JO) 60 mg tablet fluticasone-salmeterol (ADVAIR) 100-50 mcg/dose diskus inhaler hydrocodone-acetaminophen (LORTAB) 10-500 mg per tablet levothyroxine (SYNTHROID) 100 mcg tablet meloxicam (MOBIC) 15 mg tablet montelukast (SINGULAIR) 10 mg tablet No current facility-administered medications for this visit. Past Medical HX: Past Medical History: Diagnosis Date ??? Environmental allergies Past Surgical HX: History reviewed. No pertinent surgical history. Past Social HX: Social History Socioeconomic History ??? Marital status: [...] Last attempt to quit: 01/14/1973 Years since quittin.1 ??? Smokeless tobacco: Never Used Substance and Sexual Activity ??? Alcohol use: No ??? Drug use: Not Currently ??? Sexual activity: Not on file Lifestyle ??? Physical activity: Days per week: Not on file Minutes per session: Not on file ??? Stress: Not on file Relationships ??? Social connections: Talks on phone: Not on file Gets together: Not on file Attends episcopal service: Not on file Active member of [...] Social History Narrative ??? Not on file Family HX: History reviewed. No pertinent family history. Review of Systems: Negative for any fever, chills, nausea/vomiting, headaches, chest pain, palpitations, shortness of breath, bladder/bowel incontinence. No easy bruising, bleeding, anti-coagulation or known recent infections. Physical Exam: Vitals: BP 131/63 (BP Cuff Location: Right arm, BP Patient Position: Sitting, BP Cuff Sizes: Adult, large) Pulse 62 Temp 36.2 ??C (97.1 ??F) (Tympanic) General: Patient is alert and oriented x3, no acute distress Neuro: Cranial nerves II-XII grossly intact and symmetric Cardio: Palpable pulses bilaterally Lungs: symmetric chest rise, no evidence of labored breathing Skin: clear, warm, dry and intact and no rashes, bruises or petechiae noted Musculoskeletal: Knee: no effusions noted Assessment: 1. Primary osteoarthritis of right knee Plan: Ms. Kiya Rowan is a 69 y.o. female that presents to the pain clinic to undergo genicular nerve block right in regards to her chronic knee pain. All risks, benefits, and alternatives were thoroughly explained to Ms. Kiya Rowan who verbally communicated understanding of the management plan. Proceed with diagnostic genicular nerve block right follow up within 24 hrs by telephone to report results of diagnostic injection PROCEDURE: Informed consent was obtained after all questions were answered. Patient was placed in the supine position on the fluoroscopy table. A time out was performed with everyone present to verify identification of the patient, allergies and procedure to be performed. Fluoroscopy was used to identify the bony structures of the right knee. The skin was prepped on the knee area with clorhexadine prep and sterile drape. Then a 25g 3 1/2 inch spinal needle was placed on the lateral border of the femoral epicondyle, the medial border of the femoral epicondyle and the lower border of the lateral tibial condyle. Then 0.5 cc's of 0.5 Bupivacaine was injected at each site. The patient tolerated the procedure well and was discharged to home in stable condition. The patient tolerated the procedure well, there were no apparent complications, and he was discharged in stable condition. Written and verbal discharge instructions were reviewed with the patient priorto discharge. Katina Miller MD Charleen Coffman - 02/28/2019 1415 EST [facility] Rooming Note Does patient have a Weighter? yes Is patient NPO? (Solids since midnight & liquids for 4 hrs) no Blood Thinners: Is patient on Blood Thinners? Stopped eliquis on sunday If yes, taking? If stopped, who authorized stopping? Related comments: Infections: Any recent infections, fever of illnesses? no If on antibiotics, is it 7-10 days past the date of completion of antibiotics? no : (for females of child-bearing age) Is there a chance current ? no Do you have any type of implanted device? no Other: documented in this encounter Plan of Treatment Upcoming Encounters Date Type Specialty Care Team Description 10/19/2021 Office Visit Neurology CandiceEdvin M D [address] [place] [address] [address] [place] [address] (Wo rk) documented as of this encounter Visit Diagnoses Diagnosis Primary osteoarthritis of right knee - P rimary Primary localized osteoarthrosis, lower leg documented in this encounter Administered Medications Inactive Administered Medications - up to 3 most recent administrations Medication Order MAR Action Action Date Dose Rate Site bupivacaine (PF) (MARCAINE) 0.5% Given by Other 02/28/2019 15:02 EST 0.9 mL injection 0.9 mL 0.9 mL, keya-neural, NOW X1, 1 dose, On Sun02/28/19 at 1530, Routine documented in this encounter Orders Medications Ordered That Might Not Have Count Last Ord ered Date First Ordered Date Been Administered bupivacaine (PF) (MARCAINE) 0.5% injection 1 02/28 0.9 mL documented in this encounter Care Teams Cow Trimmer Relationship Specialty Start Date End Date Dallas Rizvi MD PCP - General 02/21/10 08/30/[address] [place] [address] documented as of this encounter
--- OUTSIDE RECORDS SUMMARY | 2021-10-13 16:03 | XMS_ITS | Encounter Summary ---
:1950 Author Organization [facility] Address [address] [place] [address] Care Team Providers Name Role Phone Dallas Rizvi MD Primary Care Provider Encounter Details Date Type Department Care Team Description 01/16/2013 Hospital Encounter [facility] - S Unknown, Pro Sheron tristan MD [address] [facility] [phone] [place] [address] (Work) [phone] Social History Tobacco Use Types Packs/Day Years Used Date Never Assessed Alcohol Use Standard Drinks/Week Comments No 0 (1 standard drink = 0.6 oz pure alcoho l) Sex Assigned at Date Recorded Not on file documented as of this encounter Functional Status Cognitive Status Response Date of Assessment Because of a physical, mental, or emotional condition, do Ye s 02/21/2010 you have serious difficulty concentrating, remembering, or making decisions? (5 years old or older) documented as of this encounter Medications at Time of Discharge Medication Sig Dispensed Refills Start Date End Date albuterol (PROVENTIL HFA, Inhale 2 Puffs as 0 VENTOLIN HFA) 90 directed every 4 hours mcg/Actuation as needed. inhalerIndications: acute Indications: ACUTE asthma attack ASTHMA ATTACK buPROPion (WELLBUTRIN SR) Take 100 mg by mouth 0 02/21/2010 100 mg SR tablet daily. ciprofloxacin (CIPRO) 500 Take 1 Tab by mouth 5 Tab 0 1 04/25/2009 mg tablet every 12 hours. desipramine (NORPRAMIN) Take 40 mg by mouth 0 10 mg tabletIndications: daily. Indications: neuropathic pain NEUROPATHIC PAIN duloxetine (CYMBALTA) 30 Take 90 mg by mouth 0 mg capsule daily. esomeprazole (NEXIUM) 20 Take 20 mg by [...] Code Departure Means Destination Home or Self [facility]sp documented in this encounter Plan of Treatment Upcoming Encounters Date Type Specialty Care Team Description 10/19/2021 Office Visit Neurology Edvin Harvey M D [address] [place] [address] [address] [place] [address] (Wo rk) documented as of this encounter Visit Diagnoses Not on filedocumented in this encounter Care Teams Iap Displays Analyst Relationship Specialty Start Date End Date Dallas Rizvi MD PCP - General 02/21/10 08/30/[address] [place] [address] documented as of this encounter
--- OUTSIDE RECORDS SUMMARY | 2021-10-13 16:03 | XMS_ITS | Encounter Summary ---
:1950 Author Organization [facility] Address [address] [place] [address] Care Team Providers Name Role Phone Dallas Rizvi MD Primary Care Provider Encounter Details Date Type Department Care Team Description 11/13/[address] [facility] Acevedo, [facility] [address] [address] ,[place] [address] [place] [id number] (Wo rk) Social History Tobacco Use Types [...] Office Visit Neurology Edvin Harvey M D [address] [place] [address] [address] [place] [address] (Wo rk) documented as of this encounter Visit Diagnoses Not on filedocumented in this encounter Care Teams Directional Survey Drafter Relationship Specialty Start Date End Date Dallas Rizvi MD PCP - General 02/21/10 08/30/21 [address] [place] [address] documented as of this encounter
--- OUTSIDE RECORDS SUMMARY | 2021-10-13 16:03 | XMS_ITS | Encounter Summary ---
:1950 Author Organization [facility] Address [address] [place] [address] Care Team Providers Name Role Phone Nelly Lord MD Primary Care Provider Encounter Details Date Type Department Care Team Description 07/06/2011 Results Only [facility] Caroline Lord MD Laboratory Services - [address] [place] [address] [address] [facility] [place] [address] [phone] Social History Tobacco Use Types Packs/Day Years [...] or older) documented as of this encounter Plan of Treatment Upcoming Encounters Date Type Specialty Care Team Description 10/19/2021 Office Visit Neurology Edvin Harvey M D [address] [place] [address] [address] [place] [address] (Wo rk) documented as of this encounter Procedures Procedure Name Priority Date/Time Associated Diagnosis Comme nts SURGICAL PATHOLOGY Routine 07/06/2011 0:00 EDT Re sults for this procedure are i n the results section. documented in this encounter Results SURGICAL PATHOLOGY (07/06/2011 0:00 EDT) Pathology Report: SURGICAL PATHOLOGY REPORT JOSE ECKERT Reports generated via electronic interface contain luisa ginal data; LAB however they are lacking the format of the original re port. Caution should be taken when reading/interpreting unfo rmatted reports. Name: ? KIYA ROWAN ? Accession #: ? [id number] ? : ? 1950 (Age: 61) ??F ? Collect Date: ? 07/06/2011 ? Location: ? [facility] ? Receive Date: ? 012 ? Provider: NELLY LORD MD Copy to: [facility] ? Final Pathologic Diagnosis: ? Skin of back, right upper, shave biopsy: - Seborrheic keratosis, pigmented. Microscopic Description: ? The stratum corneum i s thickened by compact and basketweave orthokeratosis with formation of horn pseud ocysts. ??The epidermis is acanthotic with formation of broad and anastomosing tr abeculae. ??The trabeculae are composed of basaloid keratinocytes with round uniform nuclei. ??The keratin ocytes have a variable amount of melanin pigment. ??(Dr. Waters)/[facility] Document reviewed and electronically signed by: ROSS WATERS MD Report ??Date: 07/10/2011 14:56 By the signature above, the attending physician certif ies that he/she has personally conducted a gross and/or microscopic examin ation of the described specimens and rendered or confirmed the above diagnosi s. Specimen(s) Received: ? R upper back Clinical History: ? Pigmented lesion Gross Description: ? Received in formalin labelled Kiya Rowan and mole R upper back is a 0.2 x 0.8 x 0.3 cm irregular sin-white granular friable papule. ??The specimen is serially sectioned and entirely submitted as (A1) and (A2). (Layla Marte)/mpl End of Report Specimen Performing Organization Address City/State/ZIP Code Phon e Number [facility] [address] [place] [address] SERVICES [facility] [address] [place] [address] documented in this encounter Visit Diagnoses Not on filedocumented in this encounter Care Teams Coal Screener Relationship Specialty Start Date End Date Nelly Lord MD PCP - General 02/21/10 08/30/[address] [place] [address] documented as of this encounter
--- OUTSIDE RECORDS SUMMARY | 2021-10-13 16:03 | XMS_ITS | Encounter Summary ---
:1950 Author Organization [facility] Address [address] [place] [address] Care Team Providers Name Role Phone Unavailable Primary Care Provider Unavailable Encounter Details Date Type Department Care Team Description 08/26/2008 Orders Only [facility] Adult Unknown , Provider, Primary Care - Emilia durham [address] [facility] [place], [place] [address] Social History Tobacco Use Types Packs/Day Years Used Date Never Assessed Sex Assigned at Date Recorded Not on file documented as of this encounter Plan of Treatment Upcoming Encounters Date Type Specialty Care Team Description 10/19/2021 Office Visit Neurology Edvin Harvey M D [address] [facility] [address] [place] [address] (Wo rk) documented as of this encounter Procedures Procedure Name Priority Date/Time Associated Diagnosis Comme nts VITAMIN B12 Routine 08/26/2008 14:51 EDT Results for this procedure are i n the results section . documented in this encounter Results VITAMIN B12 (08/26/2008 14:51 EDT) Pathologist Sig nature Vitamin B-12 845 250 - 1100 pg/ml [facility] Specimen Blood specimen (specimen) Performing Organization Address City/State/ZIP Code Phon e Number [facility] [address] [place] [address] SERVICES [facility] [address] [place] [address] documented in this encounter Visit Diagnoses Not on filedocumented in this encounter
--- OUTSIDE RECORDS SUMMARY | 2021-10-13 16:03 | XMS_ITS | Encounter Summary ---
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 Medications: Inhalers, Synthroid Cardiovascular Risk Factors: Family hist ory of CAD, Obesity Reason for Study: Atypical Chest Pain Referring Physician: MICHAEL SHEETS,QING Robertson FAX: [phone] --- NUCLEAR IMAGING RESULTS --- PERFUSION AND WALL MOTION Myocardial Perfusion: Normal Ventricular Function (Wall Motion): Global Left: normal Global Right: normal Regional: normal LVEF(%):73 IMPRESSION > normal perfusion and contraction by Nu clear SPECT imaging _ _ _ _ _ _ _ _ _ _ _ _ _ _ _ _ _ _ _ _ _ _ _ _ _ _ _ _ _ _ _ _ _ MA - myocardial infarction JVM - jeopard ized viable myocardium LAD - left anterior descending artery RC A - right coronary artery LCx - left circumflex artery _ _ _ _ _ _ _ _ _ _ _ _ _ _ _ _ _ _ _ _ _ _ _ _ _ _ _ _ _ _ _ _ _ PERFUSION AGENT AND IMAGING Stress Protocol: Sx Limited Kevan Rest D ose (+/- 10%): 10 mCi Tc-99m Sestamibi Imaging Protocol: Rest/Stress 1-day Stre ss Dose (+/- 10%): 30 mCi Tc- 99m Sestamibi Acquisition: SPECT Gated Attenuation Cor rected --- STRESS ELECTROCARDIOGRAPHY --- BASELINE ECG: NSR- Normal ECG Supine HR: 79 Supine BP: 122 / 64 Upright HR: 90 Upright BP: 132 / 62 STRESS TEST Peak HR: 137 Peak BP: 204 / 52 MPHR: 86% Peak Rate-Pressure Product: [id number] Total Exercise Time: 7.53 min Final Stag e: 3 Mets: 9.1 Test Stopped Due To: Dyspnea Symptoms / Pre Scale / Post Scale: Dyspn ea 9/10 resolved spontaneously 0/10 Chest pain 2/10 resolved spontaneously 0/10 ECG Changes: -Slow Upsloping Onset (min): 5.50 HR: 125 Peak (min): 7.53 HR: 137 Resolved (min): IPE HR: 120 Magnitude: 1.5 - 1.9 Number of Leads: 7 Performed By: Any Torres RN/Clyde SHEETS Pre-imaging likelihood of CAD: 83% Post- imaging likelihood of CAD: 32% --- STRESS SUMMARY --- 1. Normal heart rate and normal blood pr essure response to exercise 2. EXERCISE CAPACITY FOR AGE: Above aver age 3. CHEST PAIN: Exercise induced SHORTNESS OF BREATH: Exercise induced 4. STRESS ECG: Positive 5. ARRHYTHMIA: Ammy Tang MD - Global Supply Chain Director Image Interpretation By: Jonathan Haskins MD - Attending Radiologis t Good SHEETS, Luci - Attending Nucl ear Corporate Physical Security Supervisor Stress ECG Interpretation By: Aminata SHEETS, Francisco - Attending Corporate Physical Security Supervisor Jonathan Haskins MD Electronically Signed on 02/23/2010 Finalized on: 02/23/2010 12:17:29 PM Copy Report To: Performing Organization Address City/State/ZIP Code Phon e Number [facility] INPATIENT ADD-ON (02/22/2010 8:15 EST) Tests to be added fasting lipid [facility] profile Number for problems [id number] [facility] Accession number [id number] [facility] Specimen Performing Organization Address [facility]/ZIP [facility] Phon e Number [facility] [address] [place] [address] SERVICES [facility] [address] [place] [address] INPATIENT ADD-ON (02/22/2010 6:55 EST) Pathologist Sig nature Tests to be added Troponin [facility] Number for problems [id number] [facility] Accession number [id number] [facility] Specimen Performing Organization Address [facility] Phon e Number [facility] [address] [place] [address] SERVICES [facility] [address] [place] [address] LIPID PROFILE (INCLUDES CHOLESTEROL, TRIGLYCERIDES, HDL, LDL) (02/22/2010 5:47 EST) Cholesterol 146Comment: mg/dl [facility] Desirable:<200 LAB Borderline High:200-239 High:>ak=547 Triglycerides 136 35 - 160 mg/dl [facility] HDL 40Comment: Low:<40 mg/dl [facility] High(Desirable):>or LAB =60 LDL, Calculated 79 mg/dl [facility] Comment: LAB Optimal:<100 Above optimal:100-129 Borderline High:130 -159 High:160-189 Very High:>wj=442 Chol/HDL Ratio 3.7 [facility] Fasting? Yes [facility] Specimen Performing Organization Address [facility] Phon e Number [facility] [address] [place] [address] SERVICES [facility] [address] [place] [address] TROPONIN I (02/22/2010 5:47 EST) Troponin I pre <0.05 <0.81 ng/ml [facility] 2011 Comment: Reference Range: Normal: ??L ess than 0.05 Indeterminate: ??0.05-0.80 Positive: ?? Greater than 0.80 Specimen Performing Organization Address [facility]/ZIP [facility] Phon e Number [facility] [address] [place] [address] SERVICES [facility] [address] [place] [address] CK MB WITH TOTAL CK (02/22/2010 5:47 EST) Pathologist Sig nature CK 64 30 - 135 U/L [facility] MB 0.6 0 - 5.0 ng/ml [facility] CK-MB Index Not calculated, 0 - 2.5 [facility] normal MB. Specimen Blood specimen (specimen) Performing Organization Address [facility] Phon e Number [facility] [address] [place] [address] SERVICES [facility] [address] [place] [address] TROPONIN I (02/21/2010 21:52 EST) Pathologist [facility] Troponin I pre <0.05 <0.81 ng/ml [facility] 2011 Comment: Reference Range: Normal: ??L ess than 0.05 Indeterminate: ??0.05-0.80 Positive: ?? Greater than 0.80 Specimen Blood specimen (specimen) Performing Organization Address [facility] Phon e Number [facility] [address] [place] [address] SERVICES [facility] [address] [place] [address] CK MB WITH TOTAL CK (02/21/2010 21:52 EST) Pathologist Sig nature CK 68 30 - 135 U/L [facility] MB 0.9 0 - 5.0 ng/ml [facility] CK-MB Index Not calculated, 0 - 2.5 [facility] normal MB. Specimen Blood specimen (specimen) Performing Organization Address [facility] Phon e Number [facility] [address] [place] [address] SERVICES [facility] [address] [place] [id number] (ABNORMAL) D-DIMER (02/21/2010 21:52 EST) Pathologist [facility] D-Dimer 318 (H)Comment: CUTOFF <230 ng/mL [facility] VALUE FOR THE EXCLUSION OF DVT and PE: 230 ng/mL Specimen Blood specimen (specimen) Performing Organization Address [facility] Phon e Number [facility] [address] [place] [address] SERVICES [facility] [address] [place] [id number] BNP (02/21/2010 21:52 EST) Pathologist Sig nature BNP <5 <100 pg/ml [facility] Specimen Blood specimen (specimen) Performing Organization Address [facility]/ZIP Code Phon e Number [facility] [address] [place] [address] SERVICES [facility] [address] [place] [address] HEMOGLOBIN A1C (02/21/2010 21:52 EST) Hemoglobin A1C 6.4 % [facility] Comment: Reference Range: <5.7% Normal 5.7-6.4% Increased risk for diabetes =>6.5% Diagnostic for diabetes (if confirmed) ?? The A1 c goal for non adults in general is <7%. ?? The A1c goal for selected patients may be significantly lower than 7% if this can be achieved without signific ant hypoglycemia or other adverse effects of treatment. Est Avg Glucose 137Comment: eAG mg/dl [facility] represents the A1c result expressed as average glucose in mg/dl. Specimen Blood specimen (specimen) Performing Organization Address [facility] Phon e Number [facility] [address] [place] [address] SERVICES [facility] [address] [place] [address] (ABNORMAL) SCREENING GLUCOSE (02/21/2010 21:52 EST) Pathologist Sig nature Glucose, Screening 113 (H) 70 - 100 mg/dl [facility] Specimen Blood specimen (specimen) Performing Organization Address [facility] Phon e Number [facility] [address] [place] [address] SERVICES [facility] [address] [place] [address] ALKALINE PHOSPHATASE (02/21/2010 21:52 EST) Pathologist Sig nature Total Alkaline 105 38 - 126 U/L [facility] Phosphatase Specimen Blood specimen (specimen) Performing Organization Address [facility]/ZIP [facility] Phon e Number [facility] [address] [place] [address] SERVICES [facility] [address] [place] [address] ALT (02/21/2010 21:52 EST) Pathologist Sig nature ALT 38 9 - 52 U/L [facility] Specimen Blood specimen (specimen) Performing Organization Address [facility] Phon e Number [facility] [address] [place] [address] SERVICES [facility] [address] [place] [address] AST (02/21/2010 21:52 EST) Pathologist Sig nature AST 24 15 - 46 U/L [facility] Specimen Blood specimen (specimen) Performing Organization Address City/State/ZIP Code Phon e Number [facility] [address] [place] [address] SERVICES [facility] [address] [place] [address] documented in this encounter Visit Diagnoses Diagnosis Chest pain - Primary Chest pain, unspecified documented in this encounter Administered Medications Inactive Administered Medications - up to 3 most recent administrations Medication Order MAR Action Action Date Dose Rate Site aspirin EC tablet 325 mg Given 02/22/2010 11:39 EST 325 mg 325 mg, oral, DAILY, First dose on Sun02/22/10 at 0900, Until Discontinued, Routine buPROPion (WELLBUTRIN SR) SR tablet 100 mg Given 02/22/2010 11:39 EST 100 mg 100 mg, oral, DAILY, First dose on Sun02/22/10 at 0900, Until Discontinued, Routine desipramine (NORPRAMIN) tablet 50 mg Given 02/22/2010 0:27 EST 50 mg 50 mg, oral, AT BEDTIME, First dose on Sun02/21/10 at 2345, Until Discontinued, Routine duloxetine (CYMBALTA) capsule 90 mg Given 02/21/2010 23:14 EST 90 mg 90 mg, oral, DAILY, First dose on Sun02/21/10 at 2245, Until Discontinued, Routine fexofenadine (SANGEETHA) tablet 180 mg Given 02/22/2010 11:39 EST 180 mg 180 mg, oral, DAILY, First dose on Sun02/22/10 at 0900, Until Discontinued, Routine hydrocodone-acetaminophen (LORTAB) 10-500 mg Given 11:33 EST 1 Tablet per tablet 1 Tab 1 Tablet, oral, EVERY 6 HOURS PRN, Starting on Sun02/21/10 at 2109, Until Sun02/22/10 at 2022, Pain, Routine Given 02/21/2010 22:12 EST 1 Tablet levothyroxine (SYNTHROID) tablet 100 mcg Given 02/22/2010 6:54 EST 100 mcg 100 mcg, oral, DAILY, First dose on Sun02/22/10 at 0700, Until Discontinued, Routine meloxicam (MOBIC) tablet 15 mg Given 02/22/2010 11:39 EST 15 mg 15 mg, oral, DAILY, First dose on Sun02/22/10 at 0900, Until Discontinued, Routine Given 02/21/2010 23:15 EST 15 mg montelukast (SINGULAIR) tablet 10 mg Given 02/21/2010 23:13 EST 10 mg 10 mg, oral, DAILY, First dose on Sun02/21/10 at 2215, Until Discontinued, Routine pantoprazole (PROTONIX) tablet 40 mg Given 02/22/2010 11:39 EST 40 mg 40 mg, oral, DAILY, First dose on Sun02/22/10 at 0900, Until Discontinued, Routine sodium chloride 0.9 % flush 3 mL Given 02/22/2010 16:02 EST 10 mL 3 mL, intravenous, EVERY 8 HOURS, First dose on Sun02/22/10 at 0000, Until Discontinued, Routine Given 02/22/2010 8:00 EST 3 mL Given 02/22/2010 0:33 EST 10 mL documented in this encounter Historical Medications This list may reflect changes made after this encounter. Medication Sig Dispensed Refills Start Date End Date fluticasone-salmeterol Inhale 1 Puff as 0 010 (ADVAIR) 100-50 mcg/dose directed 2 times diskus daily. Indications: inhalerIndications: BRONCHIAL ASTHMA asthma albuterol (PROVENTIL HFA, Inhale 2 Puffs as 0 VENTOLIN HFA) 90 directed every 4 hours mcg/Actuation as needed. inhalerIndications: acute Indications: ACUTE asthma attack ASTHMA ATTACK hydrocodone-acetaminophen Take 1 Tab by mouth 0 (LORTAB) 10-500 mg per every 6 hours as tabletIndications: pain needed. Indications: PAIN esomeprazole (NEXIUM) 20 Take 20 mg by mouth 0 mg capsule daily. buPROPion (WELLBUTRIN SR) Take 100 mg by mouth 0 02/21/2010 100 mg SR tablet daily. meloxicam (MOBIC) 15 mg Take 15 mg by mouth 0 tablet daily. duloxetine (CYMBALTA) 30 Take 90 mg by mouth 0 mg capsule daily. levothyroxine (SYNTHROID) Take 100 mcg by mouth 0 100 mcg tablet daily. fexofenadine (SANGEETHA) 60 Take 180 mg by mouth 0 mg tablet daily. montelukast (SINGULAIR) Take 10 mg by mouth 0 10 mg tablet daily. desipramine (NORPRAMIN) Take 40 mg by mouth 0 10 mg tabletIndications: daily. Indications: neuropathic pain NEUROPATHIC PAIN added in this encounter Active and Recently Administered Medications Times are shown in EST. Scheduled Medication Order 02/20/2010 02/21/2010 02/22/2010 aspirin EC tablet 325 mg (CANCELED) 0900 (Not Given - Provider: Tre Jefferson RN - Reason: Patient off unit)1139 (Given - Provider: Tre Jefferson RN - Comment: gone to test) 325 mg, Oral, DAILY, First dose on Sun02/22/10 at 0900, Until D iscontinued buPROPion (WELLBUTRIN SR) SR tablet 100 mg (CANCELED) 1139 (Given - Provider: Tre Jefferson RN - Comment: gone to test) 100 mg, Oral, DAILY, First dose on Sun02/22/10 at 0900, Until D iscontinued ciprofloxacin (CIPRO) tablet 500 mg 1814 (Due) 500 mg, Oral, EVERY 12 HOURS, 2 doses, F irst dose on Sun02/22/10 at 1815, Last dose on Sun02/23/10 at 0900 desipramine (NORPRAMIN) tablet 50 mg (CANCELED) 0027 (Given - Provider: Cristiane Devlin RN) 50 mg, Oral, AT BEDTIME, First dose on Sun02/21/10 at 2345, Until Discontinued duloxetine (CYMBALTA) capsule 90 mg (CANCELED) 2314 (Given - Provider: Cristiane Devlin RN) 90 mg, Oral, DAILY, First dose on Sun02/21/10 at 2245, Until Di scontinued fexofenadine (SANGEETHA) tablet 180 mg (CANCELED) 1139 (Given - Provider: Tre Jefferson RN - Comment: gone to test) 180 mg, Oral, DAILY, First dose on Sun02/22/10 at 0900, Until D iscontinued levothyroxine (SYNTHROID) tablet 100 mcg (CANCELED) 0654 (Given - Provider: Cristiane Devlin RN) 100 mcg, Oral, DAILY, First dose on Sun02/22/10 at 0700, Until Discontinued meloxicam (MOBIC) tablet 15 mg (CANCELED) 2314 (Given - Provider: Cristiane Devlin RN) 113 (Given - Provider: Tre Jefferson RN - Comment: gone to test) 15 mg, Oral, DAILY, First dose on Sun02/22/10 at 0900, Until Di scontinued montelukast (SINGULAIR) tablet 10 mg (CANCELED) 2312 (Given - Provider: Cristiane Devlin RN) 10 mg, Oral, DAILY, First dose on Sun02/21/10 at 2215, Until Di scontinued pantoprazole (PROTONIX) tablet 40 mg (CANCELED) 1138 (Given - Provider: Tre Jefferson RN - Comment: gone to test) 40 mg, Oral, DAILY, First dose on Sun02/22/10 at 0900, Until Di scontinued sodium chloride 0.9 % flush 3 mL (CANCELED) 0033 (Given - Provider: Cristiane Devlin RN)0800 (Given - Provider: Tre Jefferson RN)1602 (Given - Provider: Nan Nicolas RN) 3 mL, Intravenous, EVERY 8 HOURS, First dose on Sun02/22/10 at 0000, Until Discontinued PRN Medication Order 02/20/2010 02/21/2010 02/22/2010 hydrocodone-acetaminophen (LORTAB) 10-500 mg per tablet 1 Ta b (CANCELED) 2211 (Given - Provider: Cristiane Devlin RN) 113 (Given - Provider: Tre Jefferson RN - Comment: regular med takes at home for discomfort) 1 Tab, Oral, EVERY 6 HOURS PRN, Starting Sun02/21/10 at 2109, Until Sun02/22/10 at 2022, Pain documented in this encounter Orders Medications Ordered That Might Not Have Count Last Ord ered Date First Ordered Date Been Administered ciprofloxacin (CIPRO) tablet 500 mg 1 02/22/2010 acetaminophen (TYLENOL) tablet 650 mg 1 02/21/2010 albuterol (PROVENTIL HFA, VENTOLIN HFA) 1 02/22/20 10 inhaler 2 Puff desipramine (NORPRAMIN) tablet 40 mg 1 02/21/2010 fluticasone-salmeterol (ADVAIR) 100-50 2 0 mcg/dose diskus inhaler 1 Puff morphine injection 2-4 mg 1 02/21/2010 nitroGLYCERIN (NITROSTAT) SL tablet 0.4 mg 1 02/21 zolpidem (AMBIEN) tablet 5-10 mg 1 02/21/2010 EKG Orders Without Results Count Last Ordered Date Fir st Ordered Date EKG 12-LEAD 2 02/22/2010 02/21/2010 Admission Count Last Ordered Date First Ordered Date ADMIT TO OBSERVATION 1 02/21/2010 Discharge Count Last Ordered Date First Ordered Date DISCHARGE PATIENT 1 02/22/2010 documented in this encounter Care Teams Seed Cleaning Machine Operator Relationship Specialty Start Date End Date Dallas Rizvi MD PCP - General 02/21/10 08/30/21 [address] [place] [address] documented as of this encounter
--- OUTSIDE RECORDS SUMMARY | 2021-10-13 16:03 | XMS_ITS | Encounter Summary ---
:1950 Author Organization [facility] Address [address] [place] [address] Care Team Providers Name Role Phone Unavailable Primary Care Provider Unavailable Encounter Details Date Type Department Care Team Description 05/02/2005 Before [facility] - Bronwyn Torrez, Converted Visit Charlette SAEED ([place]) [address] [address] [facility] [address] [place] [id number] (Wo rk) Social History Tobacco Use Types Packs/Day Years Used Date Never Assessed Sex Assigned at Date Recorded Not on file documented as of this encounter Consult Notes Bronwyn Torrez PA - 02/20/2009 1741 EST DIVISION OF DERMATOLOGY - [place] CONSULTATION - SUBJECTIVE: This 55white female presents to the clinic today, referred by Dallas Rizvi MD, for evaluation of a rash underneath her breasts that has not been resolving and has been present since last summer. The patient states that last summer she had a very itchy, red rash underneath her breasts. Most of the redness and the itching went away after she used Nystatin for a couple of weeks. It has worsened again since then, but went away again after she used the Nystatin. She states that she still has these bumps that do not seem to be going away. She also has bumps that continue to multiply on the sides of her breasts, and skin tags in and around her axillae. Patient denies scabbing or bleeding of any of these growths, and she states that none of them are painful. She states that occasionally when she had the itchy rash, she would sometimes get a fingernail caught on one of these growths if she scratched too forcefully, and would make one of the bumps more inflamed, though it never scabbed orbled -it would only be painful. Patient does have a history of psoriasis that occurred and resolved over 40 years ago, when the patient was in elementary school. She is otherwise healthy. She denies any constitutional symptoms today. She has no other questions or concerns with regard to her skin at this time. For complete past medical history, current medications, medication allergies, family and social history and review of systems, please see dermatology intake sheet on chart. OBJECTIVE: On exam, this is a healthy-appearing, fair-skinned, 55white female in no apparent distress, with appropriate affect and demeanor. On examination of her breasts, they are quite pendulous. On the undersurface of both breasts are diffusely scattered, waxy, flat-topped, nlwyq-qw-qlbnlulia, purplish-brown, 3-8 mm papules. She has the more classic, thpkh-kf-jhzyyfrdi, sin and brown papules scattered on the lateral aspects of her chest bilaterally. She also has about half a dozen pedunculated, 2-5 mm, skin-colored papules, most with thicker-type stalks along her axillae and bilateral lateral chest. ASSESSMENT: 1. Seborrheic keratoses. 2. Skin tags. PLAN: 1. Patient education and reassurance. 2. Recommended that patient keep the area underneath her breasts as dry as possible with a non-medicated powder, especially in the summer. I recommended a cotton undergarment. 3. After discussion of liquid nitrogen cryosurgery for skin tag removal, patient opted not to have the seborrheic keratoses or skin tags treated at this time. She understands that if the papules underneath her breasts do become quite red and she develops an itchy rash, then she should use the Nystatinagain for her intertrigo. If this is not sufficient,then I would be more than happy to see the patient again for reevaluation. If she does develop any scabbing, bleeding or bothersome seborrheic keratoses, I would be more than happy to treat them in the future with liquid nitrogen cryosurgery. Therefore, the patient will follow up on a p.r.n. basis. Signed by Alise Brown MD 06/12/2005 13:13 Reviewed by Bronwyn Torrez PA-C 06/12/2005 12:48 Duglas Ortega PA-CAnita L Licata, MD Dictated by: Bronwyn Torrez PA-C Alise Brown MD - Bronwyn Torrez PA-C A - sa Job ID: Tape Document ID: [id number] cc: Dallas Rizvi MD [facility] documented in this encounter Plan of Treatment Upcoming Encounters Date Type Specialty Care Team Description 10/19/2021 Office Visit Neurology Edvin Harvey M D [address] [place] [address] [address] [place], [place] [phone] (Wo rk) documented as of this encounter Visit Diagnoses Not on filedocumented in this encounter
--- OUTSIDE RECORDS SUMMARY | 2021-10-13 16:03 | XMS_ITS | Encounter Summary ---
:1950 Author Organization [facility] Address [address] [place] [address] Care Team Providers Name Role Phone Dallas Rizvi MD Primary Care Provider Encounter Details Date Type Department Care Team Description 03/24/2015 Historical Results [facility] - Aisha Rizvi an Only [facility] Radiology Resul justine Robertson MD [address] [facility] [place] [address] [place], [place] [phone] Social History Tobacco Use Types Packs/Day Years [...] Visit Neurology Edvin Harvey M D [address] [facility] [address] [place] [address] (Wo rk) documented as of this encounter Procedures Procedure Name Priority Date/Time Associated Diagnosis Comme nts MA BREAST SCREENING 03/24/2015 8:44 EST R esults for this PAMELA BILATERAL procedure are in the results section. documented in this encounter Results MA BREAST SCREENING PAMELA BILATERAL (03/24/2015 8:44 EST) Specimen Narrative [facility] - 03/25/2015 9:32 EST ? EXAM: MAMMOGRAM/MAMMO BILATERAL SCREEN W ??EX. D/ (0844) ? CLINICAL INFORMATION: ? Z12.31 SCREENING ? TECHNIQUE: ??Full field digital w hole breast 2D (C-view) and 3D CC and ? MLO views of both breasts were ob tained. CAD technology was utilized. ? INDICATION: ??Screening ? FINDINGS: ??The fibroglandular pa tterns of the breasts are normal. ? There has been no change when com pared to previous mammograms and ? there is no mammographic evidence of cancer. The breasts are of fatty ? density. ? FINAL ASSESSMENT: ??BILATERAL NIKOLAI AST - Category 1 - Negative. Routine ?mamm ographic follow-up is recommended. ? These results will be communicate d to your patient via a lay letter ? from Radiology. ??If any addition al imaging is needed we will contact ? your patient directly. ? BBL:dnl ?Reported B y: Reji Aleman MD ? CC: ? Transcribed Date/Time: 03/25/2015 (0932) ? Point Of Care Specialist: VIC ? Printed Date/Time: 08/21/2018 (11 55) ? PAGE 1 ? Maliha d Report ? Procedure Note Reji Aleman MD - 01/15/2019 EXAM: MAMMOGRAM/MAMMO BILATERAL SCREEN W EX. D/ (0844) CLINICAL INFORMATION: Z12.31 SCREENING TECHNIQUE: Full field digital whole nikolai ast 2D (C-view) and 3D CC and MLO views of both breasts were obtained . CAD technology was utilized. INDICATION: Screening FINDINGS: The fibroglandular patterns o f the breasts are normal. There has been no change when compared to previous mammograms and there is no mammographic evidence of ca ncer. The breasts are of fatty density. FINAL ASSESSMENT: BILATERAL BREAST - Ca tegory 1 - Negative. Routine mammographic follow-up is recommended. These results will be communicated to y our patient via a lay letter from Radiology. If any additional imagi ng is needed we will contact your patient directly. BBL:dnl Reported By: Reji Aleman MD CC: Transcribed Date/Time: 03/25/2015 (0932 ) Point Of Care Specialist: VIC Printed Date/Time: 08/21/2018 (1156) PAGE 1 Signed Report Performing Organization Address City/State/ZIP Code Phon e Number [facility] documented in this encounter Visit Diagnoses Not on filedocumented in this encounter Care Teams Trolley Operator Relationship Specialty Start Date End Date Dallas Rizvi MD PCP - General 02/21/10 08/30/21 [address] [place] [address] documented as of this encounter
--- OUTSIDE RECORDS SUMMARY | 2021-10-13 16:03 | XMS_ITS | Encounter Summary ---
:1950 Author Organization [facility] Address [address] [place] [address] Care Team Providers Name Role Phone Unavailable Primary Care Provider Unavailable Encounter Details Date Type Department Care Team Description 08/28/2003 Hospital Encounter [facility] MD Maninder [address] [address] [facility] [phone] [place] [place] [phone] (Wo rk) Social History Tobacco Use Types Packs/Day Years Used Date Never Assessed Sex Assigned at Date Recorded Not on file documented as of this encounter Discharge Disposition Disposition Code Departure Means Destination Auto Discharge documented in this encounter Plan of Treatment Upcoming Encounters Date Type Specialty Care Team Description 10/19/2021 Office Visit Neurology Edvin Harvey M D [address] [facility] [address] [place] [address] (Wo rk) documented as of this encounter Visit Diagnoses Not on filedocumented in this encounter
--- OUTSIDE RECORDS SUMMARY | 2021-10-13 16:03 | XMS_ITS | Encounter Summary ---
:[address] [facility] Address [address] [place] [address] Care Team Providers Name Role Phone Dallas Rizvi MD Primary Care Provider Encounter Details Date Type Department Care Team Description 09/01/2003 Before [facility] Serv[facility] Converted Visit [facility] MD Maninder ([place]) [address] [facility] [address] [place], [place] [phone] [place] [address] [place], [address] [place] [address] (Wo rk) Social History Tobacco Use Types Packs/Day Years Used Date Never Assessed Sex Assigned at Date Recorded Not on file documented as of this encounter Plan of Treatment Upcoming Encounters Date Type Specialty Care Team Description 10/19/2021 Office Visit Neurology Edvin Harvey M D [address] [place] [address] [address] [place] [address] (Wo rk) documented as of this encounter Visit Diagnoses Not on filedocumented in this encounter Care Teams Director Strategy Relationship Specialty Start Date End Date Dallas Rizvi MD PCP - General 02/21/10 08/30/21 [address] [place] [address] documented as of this encounter
--- OUTSIDE RECORDS SUMMARY | 2021-10-13 16:03 | XMS_ITS | Encounter Summary ---
:1950 Author Organization [facility] Address [address] [place] [address] Care Team Providers Name Role Phone Dallas Rizvi MD Primary Care Provider Encounter Details Date Type Department Care Team Description 11/13/2012 Results Only [facility] [place] [phone] [address] [place] [address] (Wo rk) Social History Tobacco Use Types [...] Visit Neurology Edvin Harvey M D [address] [facility] [address] [place] [address] (Wo rk) documented as of this encounter Procedures Procedure Name Priority Date/Time Associated Diagnosis Comme nts SURGICAL PATHOLOGY Routine 11/13/2012 15:37 Resul ts for this EDT procedure are i n the results section. documented in this encounter Results SURGICAL PATHOLOGY (11/13/2012 15:37 EDT) Pathology Report: SURGICAL PATHOLOGY REPORT JOSE ECKERT Reports generated via electronic interface contain luisa ginal data; LAB however they are lacking the format of the original re port. Caution should be taken when reading/interpreting unfo rmatted reports. Name: ? KIYA ROWAN ? Accession #: ? [id number] ? : ? 1950 (Age: 62) ??F ? Collect Date: ? 11/13/2012 ? Location: ? [facility] ? Receive Date: ? 013 ? Provider: EPI SAEED Copy to: ? Final Pathologic Diagnosis: SKIN OF LABIA MAJORA, LEFT, PUNCH BIOPSY: - Lichenoid dermatitis. ??See comment. 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 Given the deeper extent of the inflammatory infiltrat e and few superficial necrotic keratinocytes, a lichenoid drug -related eruption would be included in the histopathologic differen tial diagnosis. ??The features are not suggestive of lichen sclerosus. ??(Dr. Fernandes)/[facility] Microscopic Description: Sections consist of a punch biopsy of skin to the subcutis. ??The stratum corneum consists of a relatively thi n layer of compact keratin with focal parakeratosis. The epidermis is acanthotic with elongate and somewha t tapered rete ridges. There is a superficial periv ascular and lichenoid inflammatory infiltrate. ??The infiltrate extends into the overlying epidermis where there is interface vacuolar change with occasional necrotic keratinocytes. ??A few necrotic cells are also evident in the mid stratum spinosum. ??The in filtrate is composed primarily of lymphomononucle ar cells with a small number of plasma cells. ??There is papillary dermal edema with areas of erythrocyte ex travasation. ??(Dr. Fernandes)/[facility] Document reviewed and electronically signed by: BRANDEE FERNANDES MD Report ??Date: 11/14/2012 13:44 By the signature above, the attending physician certif ies that he/she has personally conducted a gross and/or microscopic examin ation of the described specimens and rendered or confirmed the above diagnosi s. 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 lichen sclerosus vs. other; clinical diagnosis code: 692.9 Gross Description: Received in formalin noe d with proper patient identification (initials H, I) and A. left labia majora i s a punch biopsy of sin-white skin (0.3 x 0.2 cm in diameter and 0.6 cm in thickness). Submitted intact in 1. [employer] 11/13/2012 03:46 PM End of Report Specimen Performing Organization Address City/State/ZIP Code Phon e Number [facility] [address] [place] [address] [facility] [address] [place] [address] documented in this encounter Visit Diagnoses Not on filedocumented in this encounter Care Teams Drafting Clerk Relationship Specialty Start Date End Date Dallas Rizvi MD PCP - General 02/21/10 08/30/[address] [place] [address] documented as of this encounter
--- OUTSIDE RECORDS SUMMARY | 2021-10-13 16:03 | XMS_ITS | Encounter Summary ---
:1950 Author Organization [facility] Address [address] [place] [address] Care Team Providers Name Role Phone Dallas Rizvi MD Primary Care Provider Encounter Details Date Type Department Care Team Description 01/17/2018 Historical Results [facility], [facility] tayler Only [facility] Radiology Resul ts M, VALVE SETTER [address] [place] [address] [place], [place] [phone] Social History Tobacco Use Types Packs/Day Years [...] Visit Neurology Edvin Harvey M D [address] [facility] [address] [place] [address] (Wo rk) documented as of this encounter Procedures Procedure Name Priority Date/Time Associated Diagnosis Comme nts MA BREAST SCREENING 01/17/2018 12:27 Resu lts for this PAMELA BILATERAL EST procedure are in the results section. documented in this encounter Results MA BREAST SCREENING PAMELA BILATERAL (01/17/2018 12:27 EST) Specimen Narrative [facility] - 01/17/2018 12:27 EST ? EXAM: MAMMOGRAM/MAMMO BILATERAL SCREEN W ??EX. D/ (1333) ? CLINICAL INFORMATION: ? Z12.31 SCREENING ? INDICATION: Z12.31 SCREENING SCRE ENING ??Mar 24 16 ? COMPARISON: 2007, 2009, 2010, 201 2, 2013, 2016 ? TECHNIQUE: ??Full field digital w hole breast 2D (C-view) and 3D CC and ? MLO views of both breasts were ob tained. CAD technology was utilized. ? FINDINGS: ??The fibroglandular pa tterns of the breasts are normal. ? There has been no change when com pared to previous mammograms and ? there is no mammographic evidence of cancer. The breast tissue is of ? fatty density. ? FINAL ASSESSMENT: ??BILATERAL NIKOLAI AST - Category 1 - Negative. Routine ? mammographic follow-up is recomme nded. ? These results will be communicate d to your patient via a lay letter ? from Radiology. ??If any addition al imaging is needed we will contact ? your patient directly. ? REPORT SIGNED IN OTHER VENDOR SYSTEM 01/17/2018 ?Reported B y: Guru Mena MD ? CC: ? Transcribed Date/Time: 01/17/2018 (1227) ? Blow Pit Operator: ? Printed Date/Time: 09/01/2018 (13 41) ? PAGE 1 ? Maliha d Report ? Procedure Note Guru Mena MD - 01/16/2019 EXAM: MAMMOGRAM/MAMMO BILATERAL SCREEN W EX. D/ (1333) CLINICAL INFORMATION: Z12.31 SCREENING INDICATION: Z12.31 SCREENING SCREENING Mar 24 COMPARISON: 2007, 2009, 2010, 2011, 2015 TECHNIQUE: Full field digital whole nikolai ast 2D (C-view) and 3D CC and MLO views of both breasts were obtained . CAD technology was utilized. FINDINGS: The fibroglandular patterns o f the breasts are normal. There has been no change when compared to previous mammograms and there is no mammographic evidence of ca ncer. The breast tissue is of fatty density. FINAL ASSESSMENT: BILATERAL BREAST - Ca tegory 1 - Negative. Routine mammographic follow-up is recommended. These results will be communicated to y our patient via a lay letter from Radiology. If any additional imagi ng is needed we will contact your patient directly. REPORT SIGNED IN OTHER VENDOR SYSTEM 01/17/2018 Reported By: Guru Mena MD CC: Transcribed Date/Time: 01/17/2018 (1227 ) Blow Pit Operator: Printed Date/Time: 09/01/2018 (9021) PAGE 1 Signed Report Performing Organization Address City/State/ZIP Code Phon e Number [facility] documented in this encounter Visit Diagnoses Not on filedocumented in this encounter Care Teams Clay Temperer Relationship Specialty Start Date End Date Dallas Rizvi MD PCP - General 02/21/10 08/30/[address] [place] [address] documented as of this encounter
--- OUTSIDE RECORDS SUMMARY | 2021-10-13 16:03 | XMS_ITS | Encounter Summary ---
:1950 Author Organization [facility] Address [address] [place] [address] Care Team Providers Name Role Phone Dallas Rizvi MD Primary Care Provider Encounter Details Date Type Department Care Team Description 01/16/2018 Historical Results [facility], [facility] tayler Only [facility] Radiology Resul ts M, SYSTEM DEVELOPMENT ENGINEER [address] [place] [address] [place], [place] [phone] Social History Tobacco Use Types Packs/Day [...] Visit Neurology Edvin Harvey M D [address] [facility] [address] [place] [address] (Wo rk) documented as of this encounter Visit Diagnoses Not on filedocumented in this encounter Care Teams Airline Dispatcher Relationship Specialty Start Date End Date Dallas Rizvi MD PCP - General 02/21/10 08/30/[address] [place] [address] documented as of this encounter
[2021-10-13 21:06] LABS: Anion Gap 7.4 mmol/L (3-11); BUN 28 mg/dL (7-18); CO2 28.6 mmol/L (21.0-32.0); CREATININE 1.2 mg/dL (0.55-1.02); Chloride 102 mmol/L (98-107); Estimated GFR 44.29 (mL/min/1.73m2); Glucose 86 mg/dL (74-106); Potassium 4.5 mmol/L (3.5-5.1); Sodium 138 mmol/L (136-145)
== END 2021-10-13 15:44 | disposition home or self-care (01) ==
LOC: NCHCN 15:43
PROVIDERS: Visit Provider Registered Nurse
DX: N18.9 Chronic kidney disease, unspecified
CPT/HCPCS: 80048; 87077; 87086; 87186

== ENCOUNTER 2021-11-30 22:46 | Outpatient (REF) | payer MEDICARE, BC, SELFPAY | END 2021-11-30 22:47 | disposition home or self-care (01) | LOC: NCHCN 22:46 | PROVIDERS: Visit Provider Family Medicine | DX: R39.89 Other symptoms and signs involving the genitourinary system (principal) | CPT/HCPCS: 87077; 87086; 87186 ==

== ENCOUNTER 2022-01-10 14:49 | Outpatient (REF) | payer MEDICARE, BC, SELFPAY | END 2022-01-10 14:50 | disposition home or self-care (01) | LOC: NCHCN 14:49 | PROVIDERS: Visit Provider Family Medicine | DX: B37.31 Acute candidiasis of vulva and vagina (principal) | CPT/HCPCS: 87480; 87510; 87660 ==

== ENCOUNTER 2022-01-11 17:07 | Outpatient (REF) | payer MEDICARE, BC, SELFPAY ==
[2022-01-11 21:20] LABS: Bilirubin Negative (Negative); Blood Small (Negative); Clarity Cloudy (Clear); Glucose Negative (Negative); Ketones Negative (Negative); Leukocyte Esterase Moderate (Negative); Nitrite Negative (Negative); Specific Gravity 1.025 (1.005-1.025); Urobilinogen 0.2 EU/dL (Up TO 0.2)
[2022-01-11 21:29] LABS: WBC >50 HPF (0-5)
[2022-01-11 21:30] LABS: C & S Indicated? Yes
== END 2022-01-11 17:08 | disposition home or self-care (01) ==
LOC: NCHCN 17:07
PROVIDERS: Visit Provider Family Medicine
DX: R39.9 Unspecified symptoms and signs involving the genitourinary system (principal)
CPT/HCPCS: 87077; 81003; 81015; 87086; 87186

== ENCOUNTER 2022-02-01 14:53 | Outpatient (REF) | payer MEDICARE, BC, SELFPAY | END 2022-02-01 14:54 | disposition home or self-care (01) | LOC: NCHCN 14:53 | PROVIDERS: Visit Provider Family Medicine | DX: R39.89 Other symptoms and signs involving the genitourinary system (principal) | CPT/HCPCS: 87077; 87086; 87186 ==

== ENCOUNTER 2022-04-26 16:14 | Outpatient (REF) | payer MEDICARE, BC, SELFPAY | END 2022-04-26 16:15 | disposition home or self-care (01) | LOC: NCHCN 16:14 | PROVIDERS: Visit Provider Nurse Practitioner Family | DX: R30.9 Painful micturition, unspecified (principal) | CPT/HCPCS: 87077; 87086; 87186 ==

== ENCOUNTER 2022-08-21 18:20 | Outpatient (REF) | payer MEDICARE, BC, SELFPAY | END 2022-08-21 18:21 | disposition home or self-care (01) | LOC: NCHCN 18:20 | PROVIDERS: Visit Provider Family Medicine | DX: R39.89 Other symptoms and signs involving the genitourinary system (principal); R82.998 Other abnormal findings in urine | CPT/HCPCS: 87077; 87086; 87186 ==

== ENCOUNTER 2022-08-31 16:35 | Outpatient (REF) | payer MEDICARE, BC, SELFPAY | END 2022-08-31 16:36 | disposition home or self-care (01) | LOC: NCHCN 16:35 | PROVIDERS: Visit Provider Family Medicine | DX: R39.9 Unspecified symptoms and signs involving the genitourinary system (principal) | CPT/HCPCS: 87086 ==

== ENCOUNTER 2022-11-08 21:24 | Outpatient (REF) | payer MEDICARE, BC, SELFPAY | END 2022-11-08 21:25 | disposition home or self-care (01) | LOC: NCHCN 21:24 | PROVIDERS: Visit Provider Internal Medicine | DX: N39.0 Urinary tract infection, site not specified (principal) | CPT/HCPCS: 87077; 87086; 87186 ==

== ENCOUNTER 2022-12-04 21:45 | Outpatient (REF) | payer MEDICARE, BC, SELFPAY | END 2022-12-04 21:46 | disposition home or self-care (01) | LOC: NCHCN 21:45 | PROVIDERS: Visit Provider Internal Medicine | DX: N39.0 Urinary tract infection, site not specified (principal) | CPT/HCPCS: 87077; 87086; 87186 ==

== ENCOUNTER 2023-01-01 13:35 | Outpatient (REF) | payer MEDICARE, BC, SELFPAY ==
[2023-01-01 17:43] LABS: Hemoglobin A1C 6.1 % (<5.7)
[2023-01-01 18:00] LABS: TSH 2.31 uIU/mL (0.36-3.74)
== END 2023-01-01 13:36 | disposition home or self-care (01) ==
LOC: NCHCN 13:35
PROVIDERS: Visit Provider Internal Medicine
DX: R73.03 Prediabetes (principal); I10 Essential (primary) hypertension; E03.9 Hypothyroidism, unspecified
CPT/HCPCS: 83036; 84443

== ENCOUNTER 2023-02-09 18:15 | Outpatient (REF) | payer MEDICARE, BC, SELFPAY | END 2023-02-09 18:16 | disposition home or self-care (01) | LOC: NCHCN 18:15 | PROVIDERS: Visit Provider Internal Medicine | DX: R39.89 Other symptoms and signs involving the genitourinary system (principal); R82.998 Other abnormal findings in urine | CPT/HCPCS: 87077; 87086; 87186 ==

== ENCOUNTER 2023-02-15 14:26 | Outpatient (REF) | payer MEDICARE, BC, SELFPAY ==
[2023-02-15 22:23] LABS: C Diff PCR Negative (Negative)
[2023-02-17 11:09] LABS: Campylobacter PCR Negative (Negative); Salmonella PCR Negative (Negative); Shiga Toxin PCR Negative (Negative); Shigella/Enteroinvasive Ecoli Negative (Negative)
== END 2023-02-15 14:27 | disposition home or self-care (01) ==
LOC: NCHCN 14:26
PROVIDERS: Visit Provider Internal Medicine
DX: R19.7 Diarrhea, unspecified (principal)
CPT/HCPCS: 87329; 87493; 87505; 83630; 87177

== ENCOUNTER 2023-03-19 15:47 | Outpatient (REF) | payer MEDICARE, BC, SELFPAY ==
[2023-03-19 21:19] LABS: Abs Immature Grans 0.02 10^3/uL (0.0-0.06); Absolute Basophil Count 0.02 10^3/uL (0.0-0.2); Absolute Eosinophil Count 0.09 10^3/uL (0.0-0.7); Absolute Lymphocyte Count 0.41 10^3/uL (1.2-3.4); Absolute Monocyte Count 0.56 10^3/uL (0.1-0.8); Absolute Neutrophil Count 5.47 10^3/uL (1.2-6.7); Basophils % 0.3; Eosinophils % 1.4; HCT 43.4 % (36.0-46.0); HGB 14.2 g/dL (11.2-15.7); Immature Grans % 0.3; Lymphocytes % 6.2; MCH 32.4 pg (27.0-33.0); MCHC 32.7 % (32.0-36.0); MCV 99 fL (80-95); MPV 10.7 fL (8.0-11.0); Monocytes % 8.5; Neutrophils % 83.3; Platelet Count 229 10^3/uL (130-400); RBC 4.38 10^6/uL (3.93-5.22); RDW 12.5 % (11.7-14.6); RDW-SD 46.1 fL; WBC 6.57 10^3/uL (4.4-10.8)
[2023-03-19 21:36] LABS: ALT 22 U/L (14-59); AST 27 U/L (15-37); Alkaline Phosphatase 97 U/L (46-116); Anion Gap 5.4 mmol/L (3-11); BUN 24 mg/dL (7-18); Bilirubin, Total 0.6 mg/dL (0.2-1.0); CO2 29.6 mmol/L (21.0-32.0); CREATININE 1.4 mg/dL (0.55-1.02); Calcium 9.3 mg/dL (8.5-10.1); Chloride 103 mmol/L (98-107); Estimated GFR 39.73 (mL/min/1.73m2); Glucose 127 mg/dL (74-106); Potassium 4.6 mmol/L (3.5-5.1); Sodium 138 mmol/L (136-145); Total Protein 8.1 g/dL (6.4-8.2)
== END 2023-03-19 15:48 | disposition home or self-care (01) ==
LOC: NCHCN 15:47
PROVIDERS: PCP Internal Medicine; Visit Provider Internal Medicine
DX: K52.9 Noninfective gastroenteritis and colitis, unspecified (principal)
CPT/HCPCS: 80053; 85025

== ENCOUNTER 2023-05-28 13:48 | Outpatient (REF) | payer MEDICARE, BC, SELFPAY ==
[2023-05-28 21:53] LABS: Anion Gap 6.3 mmol/L (3-11); BUN 28 mg/dL (7-18); CO2 29.7 mmol/L (21.0-32.0); CREATININE 1.2 mg/dL (0.55-1.02); Calcium 9.6 mg/dL (8.5-10.1); Chloride 107 mmol/L (98-107); Glucose 125 mg/dL (74-106); Sodium 143 mmol/L (136-145)
== END 2023-05-28 13:49 | disposition home or self-care (01) ==
LOC: NCHCN 13:48
PROVIDERS: PCP Internal Medicine; Visit Provider Internal Medicine
DX: N17.9 Acute kidney failure, unspecified (principal)
CPT/HCPCS: 80048

== ENCOUNTER 2023-10-30 15:28 | Outpatient (REF) | payer MEDICARE, BC, SELFPAY | END 2023-10-30 15:29 | disposition home or self-care (01) | LOC: NCHCN 15:28 | PROVIDERS: PCP Internal Medicine; Visit Provider Physician Assistant | DX: R30.0 Dysuria (principal); R82.89 Other abnormal findings on cytological and histological examination of urine | CPT/HCPCS: 87086 ==

== ENCOUNTER 2023-11-21 18:14 | Outpatient (REF) | payer MEDICARE, BC, SELFPAY ==
[2023-11-21 15:13] LABS: Anion Gap 6.5 mmol/L (3-11); BUN 27 mg/dL (7-18); CO2 29.5 mmol/L (21.0-32.0); CREATININE 1.3 mg/dL (0.55-1.02); Calcium 9.6 mg/dL (8.5-10.1); Chloride 105 mmol/L (98-107); Estimated GFR 43.42 (mL/min/1.73m2); Glucose 125 mg/dL (74-106); Potassium 4.6 mmol/L (3.5-5.1); Sodium 141 mmol/L (136-145)
== END 2023-11-21 18:15 | disposition home or self-care (01) ==
LOC: NCHCN 18:14
PROVIDERS: PCP Internal Medicine; Visit Provider Internal Medicine
DX: N28.9 Disorder of kidney and ureter, unspecified (principal)
CPT/HCPCS: 80048

== ENCOUNTER 2024-02-22 11:03 | Outpatient (REF) | payer MEDICARE, BC, SELFPAY ==
[2024-02-22 14:39] LABS: HCT 45.5 % (36.0-46.0); HGB 14.7 g/dL (11.2-15.7); MCH 32.2 pg (27.0-33.0); MCHC 32.3 % (32.0-36.0); MCV 100 fL (80-95); MPV 10.7 fL (8.0-11.0); Platelet Count 200 10^3/uL (130-400); RBC 4.56 10^6/uL (3.93-5.22); RDW 11.9 % (11.7-14.6); RDW-SD 43.8 fL; WBC 4.69 10^3/uL (4.4-10.8)
[2024-02-22 14:58] LABS: TSH 0.45 uIU/mL (0.36-3.74)
[2024-02-22 15:04] LABS: Hemoglobin A1C 6.3 % (<5.7)
[2024-02-22 15:06] LABS: Anion Gap 9.8 mmol/L (3-11); BUN 22 mg/dL (7-18); CO2 28.2 mmol/L (21.0-32.0); CREATININE 1.2 mg/dL (0.55-1.02); Calcium 9.5 mg/dL (8.5-10.1); Chloride 104 mmol/L (98-107); Glucose 100 mg/dL (74-106); Potassium 4.9 mmol/L (3.5-5.1); Sodium 142 mmol/L (136-145)
== END 2024-02-22 11:04 | disposition home or self-care (01) ==
LOC: NCHCN 11:03
PROVIDERS: PCP Internal Medicine; Visit Provider Internal Medicine
DX: R73.03 Prediabetes (principal)
CPT/HCPCS: 80048; 85027; 83036; 84443

== ENCOUNTER 2024-05-19 16:02 | Outpatient (REF) | payer MEDICARE, BC, SELFPAY | END 2024-05-19 16:03 | disposition home or self-care (01) | LOC: NCHCN 16:02 | PROVIDERS: PCP Internal Medicine; Visit Provider Internal Medicine | DX: R39.9 Unspecified symptoms and signs involving the genitourinary system (principal); B96.1 Klebsiella pneumoniae [K. pneumoniae] as the cause of diseases classified elsewhere | CPT/HCPCS: 87077; 87086; 87186 ==

== ENCOUNTER 2024-07-25 19:48 | Outpatient (REF) | payer MEDICARE, BC, SELFPAY | END 2024-07-25 19:49 | disposition home or self-care (01) | LOC: NCHCN 19:48 | PROVIDERS: PCP Internal Medicine; Visit Provider Internal Medicine | DX: R39.9 Unspecified symptoms and signs involving the genitourinary system (principal); B96.29 Other Escherichia coli [E. coli] as the cause of diseases classified elsewhere; R82.89 Other abnormal findings on cytological and histological examination of urine | CPT/HCPCS: 87077; 87086; 87186 ==

== ENCOUNTER 2024-08-25 12:44 | Outpatient (REF) | payer MEDICARE, BC, SELFPAY ==
[2024-08-25 15:22] LABS: HCT 41.8 % (36.0-46.0); HGB 13.8 g/dL (11.2-15.7); MCH 33.1 pg (27.0-33.0); MCV 100 fL (80-95); MPV 10.7 fL (8.0-11.0); Platelet Count 214 10^3/uL (130-400); RBC 4.17 10^6/uL (3.93-5.22); RDW 12.6 % (11.7-14.6); RDW-SD 46.5 fL; WBC 4.98 10^3/uL (4.4-10.8)
[2024-08-25 15:37] LABS: Anion Gap 6.2 mmol/L (3-11); BUN 29 mg/dL (7-18); CO2 29.8 mmol/L (21.0-32.0); CREATININE 1.2 mg/dL (0.55-1.02); Calcium 9.1 mg/dL (8.5-10.1); Chloride 105 mmol/L (98-107); Glucose 108 mg/dL (74-106); Sodium 141 mmol/L (136-145)
[2024-08-25 16:33] LABS: Hemoglobin A1C 6.3 % (<5.7)
== END 2024-08-25 12:45 | disposition home or self-care (01) ==
LOC: NCHCN 12:44
PROVIDERS: PCP Internal Medicine; Visit Provider Internal Medicine
DX: R73.03 Prediabetes (principal); N17.9 Acute kidney failure, unspecified
CPT/HCPCS: 80048; 85027; 83036

== ENCOUNTER 2024-10-08 12:09 | Outpatient (REF) | payer MEDICARE, BC, SELFPAY ==
[2024-10-08 15:37] LABS: Anion Gap 8.4 mmol/L (3-11); BUN 26 mg/dL (7-18); CO2 26.6 mmol/L (21.0-32.0); Calcium 9.1 mg/dL (8.5-10.1); Chloride 104 mmol/L (98-107); Estimated GFR 47.50 (mL/min/1.73m2); Glucose 132 mg/dL (74-106); Potassium 5.0 mmol/L (3.5-5.1); Sodium 139 mmol/L (136-145)
== END 2024-10-08 12:10 | disposition home or self-care (01) ==
LOC: NCHCN 12:09
PROVIDERS: PCP Internal Medicine; Visit Provider Internal Medicine
DX: I10 Essential (primary) hypertension (principal)
CPT/HCPCS: 80048

== ENCOUNTER 2024-11-12 15:19 | Outpatient (REF) | payer MEDICARE, BC, SELFPAY | END 2024-11-12 15:20 | disposition home or self-care (01) | LOC: NCHCN 15:19 | PROVIDERS: PCP Internal Medicine; Visit Provider Internal Medicine | DX: R39.9 Unspecified symptoms and signs involving the genitourinary system (principal); B96.29 Other Escherichia coli [E. coli] as the cause of diseases classified elsewhere | CPT/HCPCS: 87077; 87086; 87186 ==

== ENCOUNTER 2024-11-26 20:05 | Outpatient (REF) | payer MEDICARE, BC, SELFPAY | END 2024-11-26 20:06 | disposition home or self-care (01) | LOC: NCHCN 20:05 | PROVIDERS: PCP Internal Medicine; Visit Provider Nurse Practitioner Family | DX: N39.0 Urinary tract infection, site not specified (principal) | CPT/HCPCS: 87077; 87086; 87186 ==

== ENCOUNTER 2025-02-23 18:05 | Outpatient (REF) | payer MEDICARE, BC, SELFPAY ==
[2025-02-23 21:56] LABS: Hemoglobin A1C 6.2 % (<5.7)
[2025-02-23 21:57] LABS: Anion Gap 6.8 mmol/L (3-11); BUN 22 mg/dL (9-23); CO2 29.2 mmol/L (20.0-31.0); Calcium 9.3 mg/dL (8.3-10.6); Chloride 107 mmol/L (98-107); Cholesterol 138 mg/dL (<200); Glucose 86 mg/dL (74-106); HDL Cholesterol 49 mg/dL (>40); Potassium 4.4 mmol/L (3.5-5.1); Sodium 143 mmol/L (136-145)
[2025-02-23 22:01] LABS: TSH 0.98 uIU/mL (0.55-4.78)
== END 2025-02-23 18:06 | disposition home or self-care (01) ==
LOC: NCHCN 18:05
PROVIDERS: PCP Internal Medicine; Visit Provider Internal Medicine
DX: N18.31 Chronic kidney disease, stage 3a (principal); R73.03 Prediabetes; E03.9 Hypothyroidism, unspecified
CPT/HCPCS: 80048; 80061; 83036; 84443

== ENCOUNTER 2025-03-02 16:15 | Outpatient (REF) | payer MEDICARE, BC, SELFPAY | END 2025-03-02 16:16 | disposition home or self-care (01) | LOC: NCHCN 16:15 | PROVIDERS: PCP Internal Medicine; Visit Provider Internal Medicine | DX: N39.0 Urinary tract infection, site not specified (principal) | CPT/HCPCS: 87086 ==